=== PATIENT | male | born 1970 | race African-American/Black ===

== ENCOUNTER 2019-08-18 05:36 | Day surgery (SDC) | payer MEDICARE, MEDICAID ==
[~2019-08-18] VITALS: Ht 176.5 cm; Wt 102.1 kg
[~2019-08-18 05:36] MED LIST: ALBU8.5H INH; AMOX875T2 PO; GLIP5TAB8 PO; INCR1INH INH; MELATAB3 PO; METF10004 PO; NICO21DI37 TOP; RANI150T14 PO; SERT-138 PO; SIMV10TA2 PO; VITA1CAP25 PO; VITA500045 PO; [UNRECOGNIZED DRUG - OTHER] MT
[2019-08-18] MEDS ORDERED: LR 1,000 ML IV ONE (06:00)
[2019-08-18] MEDS ORDERED: fentaNYL 100 MCG/2 ML INJECTION (J3010) As Ordered ONE ×2 (07:08→07:47)
[2019-08-18] MEDS ORDERED: MIDAZOLAM INJ 2 MG/2 ML VIAL (J2250) As Ordered ONE (07:08)
[2019-08-18] MEDS ORDERED: dexameTHASONE 4 MG/ML 1ML VIAL (J1100) As Ordered ONE (07:10)
[2019-08-18] MEDS ORDERED: LIDOCAINE 2% INJ 100 MG/5 ML SDV (FOR ANES.) As Ordered ONE (07:10)
[2019-08-18] MEDS ORDERED: PROPOFOL 200 MG/20 ML VIAL As Ordered ONE (07:10)
[2019-08-18] MEDS ORDERED: ROCURONIUM BROMIDE 50 MG/5 ML VIAL As Ordered ONE (07:10)
[2019-08-18] MEDS ORDERED: ONDANSETRON 4MG/2ML VIAL (J2405) As Ordered ONE (07:10)
[2019-08-18] MEDS ORDERED: LIDOCAINE 1% SDV INJ 30 ML VIAL As Ordered ONE (07:12)
[2019-08-18] MEDS ORDERED: LIDOCAINE VISCOUS 2% SOLN 15ML UDC As Ordered ONE (07:12)
[2019-08-18] MEDS ORDERED: CETACAINE SPRAY 5GM As Ordered ONE (07:12)
[2019-08-18] MEDS ORDERED: THROMBIN SOLN 5,000 UNITS VIAL As Ordered ONE (07:12)
[2019-08-18] MEDS ORDERED: EPINEPHrine 1MG/10ML SYRINGE 1.5IN As Ordered ONE (07:19)
[2019-08-18] MEDS ORDERED: SUGAMMADEX SODIUM 500 MG/5 ML VIAL (BRIDION) As Ordered ONE (07:56)
[2019-08-18] MEDS ORDERED: ESMOLOL INJ 100MG/10ML VIAL As Ordered ONE (07:58)
[2019-08-18] MEDS ORDERED: ONDANSETRON 4MG/2ML VIAL (J2405) IV PRN (08:45)
[2019-08-18] MEDS ORDERED: PERCOCET 5MG/325MG TAB PO PRN (08:45)
[2019-08-18] MEDS ORDERED: MORPHINE 10 MG/ML 1ML VIAL (J2270) IV PRN (08:45)
[2019-08-18] MEDS ORDERED: fentaNYL 100 MCG/2 ML INJECTION (J3010) IV PRN (08:45)
[2019-08-18] MEDS ORDERED: LR 1,000 ML IV SCH (08:45)
--- NOTE | 2019-08-18 08:53 | ROOR ---
Patient Name: Tomer Suresh Procedure Date: 08/18/2019 7:17 AM Date of : 1970 Admit Type: Outpatient Age: 48 Room: Main OR Note Status: Finalized Attending MD: Isamar Shaw MD Procedure: Bronchoscopy Indications: Right lower lobe mass, Hemoptysis with abnormal CXR, Mediastinal adenopathy, Paratracheal adenopathy Providers: Isamar Shaw MD (Doctor) Referring MD: 1. No Referring Physician 1. No Referring Physician, Admin. (Referring MD) Requesting Physician: Medicines: General Anesthesia, Cetacaine topical Complications: No immediate complications. Estimated blood loss: Minimal Procedure: Pre-Anesthesia Assessment: - Prior to the procedure, a History and Physical was performed, and patient medications and allergies were reviewed. The patient's tolerance of previous anesthesia was also reviewed. The risks and benefits of the procedure and the sedation options and risks were discussed with the patient. All questions were answered, and informed consent was obtained. Prior Anticoagulants: The patient has taken no previous anticoagulant or antiplatelet agents. ASA Grade Assessment: II - A patient with mild systemic disease. After reviewing the risks and benefits, the patient was deemed in satisfactory condition to undergo the procedure. The Bronchoscope was introduced through the mouth, via the endotracheal tube (the patient was intubated for the procedure) and advanced to the tracheobronchial tree of both lungs. The procedure was accomplished without difficulty. The patient tolerated the procedure well. Findings: Respiratory tract: The trachea is of normal caliber. The dilip is sharp. The entire tracheobronchial tree was examined to at least the first subsegmental level. Bronchial mucosa and anatomy are normal in the left brochial tree with no endobronchial lesions and scant thick mucoid secretions. Right Lung Abnormalities: The right upper lobe bronchial mucosa appeared edematous but no endobronchial lesion seen. In the right lower lobe, the superior segmental bronchus was visualized and patent. The devision to the right lower lobe basalar segments oriface showed narrowing from areas of friable and nodular mucosa. Brushings were obtained in the right lower lobe with a cytology brush and sent for routine cytology. Endobronchial biopsies were performed in the right lower lobe mucosal abnormality using forceps and sent for histopathology examination. BAL was performed in the right lower lobe of the lung and sent for cell count, bacterial culture, and fungal & AFB analysis and cytology. The return was blood-tinged. An endobronchial ultrasound endoscope was utilized in order to assist with fine needle aspiration in the subcarinal area and in the left hilum. Transbronchial needle aspiration of a lymph nodes was performed in the subcarinal area and in the left hilum using an Olympus EBUS-TBNA 21 gauge needle and sent for routine cytology. The procedure was guided by ultrasound. Transbronchial needle aspiration technique was selected because the sampling site was not visible endoscopically. Impression: - Right lower lobe mass - Hemoptysis with abnormal CXR - Mediastinal adenopathy - Paratracheal adenopathy - Friable mucosa was found in the right lower lobe. - Nodular mucosa was visualized in the right lower lobe. - Brushings were obtained. - An endobronchial biopsy was performed. - Bronchoalveolar lavage was performed. - Endobronchial ultrasound was performed. - A transbronchial needle aspiration was performed. Recommendation: - Follow up with bronchoscopist as previously scheduled. Attending Participation: I personally performed the entire procedure. Isamar Shaw MD 08/18/2019 8:53:17 AM Number of Addenda: 0 Note Initiated On: 08/18/2019 7:17 AM
--- NOTE | 2019-08-18 09:00 | REP ---
Single view chest: 08/18/2019. Indication: Status post bronchoscopy. Comparison: None. Findings: There is no pneumothorax. There is mild blunting of the right costophrenic angle with minimal flow is suspected. The cardiac silhouette is normal in size. The mediastinum is prominent. Mildly prominent pulmonary vasculature and interstitial markings are present. Please correlate clinically for early CHF. Impression: No pneumothorax. Electronically Signed by Ajit Miller DO 08/18/2019 08:51 A
[2019-08-18 09:05] VITALS: BP 117/59
[2019-08-18 11:40] LABS: APPEARANCE CLOTTED (CLEAR); COLOR RED (COLORLESS); SOURCE RIGHT LOWER LOBE
== END 2019-08-18 09:47 | disposition home or self-care (01) ==
LOC: M SDC 05:36
PROVIDERS: ATTEND Internal Medicine Pulmonary Disease
DX: C34.31 Malignant neoplasm of lower lobe, right bronchus or lung (principal); C77.1 Secondary and unspecified malignant neoplasm of intrathoracic lymph nodes; E11.9 Type 2 diabetes mellitus without complications; E78.49 Other hyperlipidemia; F32.9 Major depressive disorder, single episode, unspecified; F17.218 Nicotine dependence, cigarettes, with other nicotine-induced disorders; K21.9 Gastro-esophageal reflux disease without esophagitis; Z79.84 Long term (current) use of oral hypoglycemic drugs; Z79.899 Other long term (current) drug therapy; G47.30 Sleep apnea, unspecified; Z79.51 Long term (current) use of inhaled steroids
CPT/HCPCS: 31623; 31624; 31625; 31629; 31652; 71045; 87070; 87102; 87116; 87205; 87206; 88104; 88108; 88173; 88305; 88313; 88341; 88342; 89051; J1100; J2250; J2405; J3010

== ENCOUNTER → 2019-09-08 | Outpatient (CLI) | payer MEDICARE, MEDICAID ==
[~2019-09-08] MED LIST changes: +ONDA8TAB7 PO; +PROC10TA4 PO; -SIMV10TA2 PO; +SIMV10TA21 PO
--- NOTE | 2019-09-08 19:44 | REP ---
PET/CT: History: Staging, lung carcinoma right lower lobe. 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 Comparisons: Comparison chest x-ray August 18, 2019. TECHNIQUE: 61 minutes following the intravenous injection of a 8.82 mCi dose of F-18 FDG, three-dimensional PET scintigraphy is acquired from the skull base to the proximal thighs. Triplanar noncontrast CT scanning is acquired through the same anatomic range for attenuation correction, and image registration with scan parameters optimized to minimize radiation exposure to the patient. PET scintigraphy and CT datasets were fused and displayed on a workstation with multiplanar and projection display capability. PET/CT Findings: The known large right lower lobe hilar and infrahilar mass is quite hypermetabolic. Maximum standard uptake value 16.13 to 17.64. Hypermetabolic bulky subcarinal lymphadenopathy is seen with maximum standard uptake value 18.31. Precarinal mediastinal hypermetabolic uptake is seen as well, maximum standard uptake value 15.50. Hypermetabolic uptake extends superiorly in the right paratracheal mediastinum. The low density left thyroid cyst or nodule shows no abnormal hypermetabolic uptake. Head and neck soft tissues show no abnormal teddy uptake. There is a mildly hypermetabolic normal-sized para esophageal lymph node just lateral to the distal esophagus anterior to the descending aorta. Maximum standard uptake value here is 5.42. There is also an abnormal celiac axis lymph node in the upper central abdomen with a maximum standard uptake value 7.22. No abnormal hypermetabolic uptake is seen within the liver. No other abnormal uptake is seen in the abdomen or pelvis. Impression: The bulky right lower lobe, right hilar, subcarinal and mediastinal mass is hypermetabolic. There is postobstructive change in the right lower lobe lung parenchyma. There is evidence of metastatic hypermetabolic uptake in a celiac axis lymph node and probably, in a distal para-esophageal lymph node. No other abnormal abdominal or pelvic hypermetabolic uptake is seen. Electronically Signed by Fredrick Cosme MD 09/08/2019 07:53 P
== END ==
LOC: M PLARAD 13:23
PROVIDERS: ATTEND Internal Medicine Pulmonary Disease
DX: C34.31 Malignant neoplasm of lower lobe, right bronchus or lung (principal)
CPT/HCPCS: 78815; A9552

== ENCOUNTER → 2019-09-10 | Outpatient (CLI) | payer MEDICARE, MEDICAID ==
[~2019-09-10] MED LIST changes: -ONDA8TAB7 PO; -PROC10TA4 PO; +SIMV10TA2 PO; -SIMV10TA21 PO
--- NOTE | 2019-09-10 09:37 | PFTRPT ---
Height: 69.00 Inches Weight: 221.00 Lbs BSA: 2.16 Diagnosis: C34.31 DATE OF PROCEDURE: 09/10/2019 ORDERED BY: Dr. Shaw Spirometry: Pre and post bronchodilator study of excellent technical quality. Forced vital capacity is borderline. FEV1 is reduced and out of proportion. Obstructive index is, therefore, reduced as well. Flow Volume Loop: Expiratory limb of the flow volume loop does suggest some degree of flow rate limitation. No significant bronchodilator response identified. Lung Volumes: Residual volume does not suggest air trapping. Diffusing Capacity: Diffusing capacity is reduced but is appropriate for alveolar volume. Hemoglobin: Hemoglobin acceptable at 13.3. Airway Mechanics: Airway resistance and conductance are normal. IMPRESSION: Suggests some degree of restrictive ventilatory defect. Minimal obstruction cannot be ruled out. No bronchodilator response. Decrease in the absolute diffusing capacity. Please correlate clinically. MTDD
== END ==
LOC: M CARPUL 08:53
PROVIDERS: ATTEND Internal Medicine Pulmonary Disease
DX: C34.31 Malignant neoplasm of lower lobe, right bronchus or lung (principal)

== ENCOUNTER → 2019-09-25 | Outpatient (CLI) | payer MEDICARE, MEDICAID ==
[~2019-09-25] MED LIST changes: +LIDOCAINE 1% MDV 20ML VIAL As Ordered ONE; +MIDAZOLAM INJ 2 MG/2 ML VIAL (J2250) As Ordered ONE; +ONDA8TAB7 PO; +PROC10TA4 PO; +ceFAZolin 1GM INJ (J0690 PER 500MG) As Ordered ONE; +ceFAZolin SOD 2 GM in IV 1 EA IV ONE; +diphenhydrAMINE INJ 50MG/ML VIAL (J1200) As Ordered ONE; +fentaNYL 100 MCG/2 ML INJECTION (J3010) As Ordered ONE
--- NOTE | 2019-09-25 08:36 | IRHP ---
[facility] IR Pre-Procedure H & P General Date of Service: Sep 25, 2019 Procedure: Same Day Surgery Interval History and Physical I have seen the patient and reviewed last H & P performed within 30 days. There is no significant interval change. History of Present Illness Chief Complaint The patient is a 48-year-old male admitted with a reason for visit of Scc In [facility]. PRE-PROCEDURE DIAGNOSIS: SCC HEART: normal rate. LUNGS: normal breathing at rest. ASA Classification ASA Classification: II-Mild systemic disease Mallampati Score: I NPO: Yes Problems with prior sedation: No Obstructive Sleep Apnea: No Plan moderate sedation Allergies Coded Allergies: No Known Allergies (Unverified , 08/14/19) Home Medications Scheduled Cholecalciferol (Vitamin D3) (Vitamin D3), 50,000 UNIT PO QWEEK, (Reported) Glipizide (Glipizide), 5 MG PO DAILY, (Reported) Melatonin (Melatonin), 5 MG PO QHS, (Reported) Metformin HCl (Metformin HCl), 1,000 MG PO BID, (Reported) Nicotine Polacrilex (Nicotine Lozenge), 4 MG MT Q2HP, (Reported) Sertraline HCl (Sertraline HCl), 100 MG PO DAILY, (Reported) Simvastatin (Simvastatin), 10 MG PO DAILY, (Reported) Umeclidinium Volcano (Incruse Ellipta), 1 PUFF INH DAILY, (Reported) Scheduled PRN Albuterol Sulfate (Albuterol Sulfate Hfa), 2 PUFFS INH Q4-6HP PRN for SOB/WHEEZING, (Reported) VS, I&O, 24H, Fishbone Vital Signs/I&O Vital Signs Date Time Temp Pulse Resp B/P (MAP) Pulse Ox O2 Delivery O2 Flow Rate FiO2 09/25/19 07:39 97.6 105 16 98 Room Air RAKAN UGARTE MD Sep 25, 2019 08:36
--- NOTE | 2019-09-25 09:24 | POST-OPPD ---
Postoperative Procedure Note Date Of Procedure: Sep 25, 2019 Time Of Procedure: 09:22 PREOPERATIVE DIAGNOSIS: SCC POSTOPERATIVE DIAGNOSIS: same FINDINGS: patent right IJ PROCEDURE: right IJ port. ready to use SURGEON: nette ANESTHESIA: mod sed ESTIMATED BLOOD LOSS: < 5 ml COMPLICATIONS: none POSTOPERATIVE CONDITION: stable RAKAN UGARTE MD Sep 25, 2019 09:24
[2019-09-25 11:12] VITALS: BP 141/94
--- NOTE | 2019-09-25 14:24 | REP ---
IR Ultrasound and fluoroscopy-guided port placement. IR Ultrasound of the neck. IR Moderate sedation. Clinical information: Lung cancer. Physician: Dr. Millan. Procedure: The patient was advised of the benefits, risks, and alternatives of the procedure and informed consent was obtained. A time-out was performed with verification of the patient's name, MRN, site of procedure and type of procedure to be performed. The patient was positioned in the supine position on the angiographic table. The site was prepped and draped in the usual sterile fashion. Moderate sedation was performed by the physician including the presence of an independent trained observer who assisted and monitored the patient's level of consciousness and physiologic status. Following the administration of Fentanyl and Versed, the physician spent 45 minutes of continuous face to face time with the patient. Ultrasound of the neck reveals a patent and compressible right internal jugular vein. A supervisor felling bucking radiograph reveals increased markings in right lung and hilar fullness. . The neck and anterior chest wall were anesthetized with lidocaine. The right internal jugular vein was accessed using a microintroducer needle under ultrasound guidance, via a lateral approach. An 018 wire was advanced into the superior vena cava, the needle was removed and a microsheath was placed. An Amplatz wire was then passed into the inferior vena cava. An incision at the internal jugular vein access site and anterior chest wall were made using a scalpel. An incision was made at the anterior chest wall. A small pocket was created using a combination of blunt and sharp dissection. A tunneling device was then used to pass the catheter from the pocket to the neck puncture site. An 8-[place] [employer] smart power port was then positioned in the pocket. The catheter was then measured and cut. The introducer sheath was exchanged for a peel-away sheath. The catheter was passed through the peel-away sheath into the internal jugular vein and the peel-away sheath was removed. The port tip was positioned at the cavoatrial junction. The port was then accessed with a Fishman needle. The port flushes and aspirates well. The puncture site in the neck was closed. The chest wall incision was then closed with 2-0 Vicryl and 4-0 Monocryl. Glue and Steri-Strips were applied. A sterile dressing was then applied. The patient tolerated the procedure well and was returned to the PRU in stable condition. Estimated blood loss: <5 ml. Complications: None. Conclusion: 1. Successful placement of an 8-[place] [employer] power port via the right internal jugular vein. The port is ready for immediate use. 2. Patient to follow up in IR clinic in 2 weeks. Thank you for this referral. Electronically Signed by Jessica Millan MD 09/25/2019 02:24 P
== END ==
LOC: M IRPRO 07:25
PROVIDERS: ATTEND Internal Medicine Medical Oncology
DX: C34.31 Malignant neoplasm of lower lobe, right bronchus or lung (principal); Z79.899 Other long term (current) drug therapy

== ENCOUNTER → 2019-10-13 | Outpatient (POV) | payer MEDICARE, MEDICAID ==
[~2019-10-13] VITALS: Ht 175.3 cm; Wt 100.0 kg
[~2019-10-13] MED LIST changes: -LIDOCAINE 1% MDV 20ML VIAL As Ordered ONE; -MIDAZOLAM INJ 2 MG/2 ML VIAL (J2250) As Ordered ONE; -SIMV10TA2 PO; +SIMV10TA21 PO; -ceFAZolin 1GM INJ (J0690 PER 500MG) As Ordered ONE; -ceFAZolin SOD 2 GM in IV 1 EA IV ONE; -diphenhydrAMINE INJ 50MG/ML VIAL (J1200) As Ordered ONE; -fentaNYL 100 MCG/2 ML INJECTION (J3010) As Ordered ONE
[2019-10-13 10:55] VITALS: BP 142/92
--- NOTE | 2019-10-14 08:55 | IRPN ---
[facility] IR Progress Note IR Progress Note DATE: Oct 13, 2019 FOLLOW-UP: Status post port placement. Port being used without any difficulty. No fevers or chills. ON EXAMINATION: Patient in better spirits. Port site looks good, no redness, tenderness, fluctuance or discharge. IMPRESSION: Doing well status post port placement. No further follow-up scheduled unless initiated by patient or infusion. Thank you for this referral Allergies Coded Allergies: No Known Allergies (Unverified , 08/14/19) VS,Fishbone, I+O VS, Fishbone, I+O Vital Signs Date Time Temp Pulse Resp B/P (MAP) Pulse Ox O2 Delivery O2 Flow Rate FiO2 10/13/19 10:55 98.0 109 18 142/92 (109) 99 Room Air RAKAN UGARTE MD Oct 14, 2019 08:55
== END ==
LOC: M IRPOV 10:40
PROVIDERS: ATTEND Radiology Diagnostic Radiology
DX: Z45.2 Encounter for adjustment and management of vascular access device (principal)

== ENCOUNTER → 2019-12-15 | Outpatient (CLI) | payer MEDICARE, MEDICAID ==
[~2019-12-15] MED LIST changes: +CBD OIL; +ENDO5TAB PO; +GASTROGRAFIN SOLUTION 30ML (Q9963) As Ordered ONE; +ISOVUE-370 76% 100ML VIAL (Q9967) As Ordered ONE; +ONDA8TAB10 PO; -ONDA8TAB7 PO
--- NOTE | 2019-12-15 15:21 | REP ---
Clinical: Lung cancer. Technique: Add axial contrast enhanced images from the thoracic inlet to the upper abdomen with coronal and sagittal re-formations. Correlation: PET-CT dated 09/08/2019. Findings: Current examination demonstrates moderate residual mediastinal and hilar (right greater than left) conglomerate adenopathy and ill-defined small areas of linear/nodular density extending from the right hilum to the right lower lobe along with minimal right lower lobe scarring. While no CT is available for direct comparison, the findings are considerably improved as compared to recent PET CT dated 09/08/2019. No new lesion is appreciated. No effusion. No pneumothorax. Further evaluation of the mediastinum demonstrates normal thoracic aorta, pulmonary vasculature and heart/pericardium. No pericardial effusion. [id number] identified with tip in the SVC. Surrounding musculoskeletal structures are intact without focal abnormality. Limited upper abdomen demonstrates normal bilateral adrenal glands. Impression: Findings suggest considerable improvement when compared to PET CT. No new acute process identified. Electronically Signed by Marlon Eastman MD 12/15/2019 03:12 P
--- NOTE | 2019-12-15 15:28 | REP ---
Clinical: Lung cancer. Technique: Axial contrast enhanced images from the lung bases to the pubic symphysis with coronal and sagittal re-formations using oral (per protocol) and 100 ml Isovue 370 intravenous contrast material. Comparison: None. Findings: Hepatic steatosis suggested without focal hepatic lesion. Spleen, pancreas, gallbladder, bilateral adrenal glands and kidneys are normal. A single 13 mm lymph node is identified at the celiac axis. The enteric system is without obstruction or acute inflammatory process. Small hiatal hernia identified at the gastroesophageal junction. Normal terminal ileum and appendix identified in the right lower quadrant. Few scattered sigmoid diverticula noted without acute diverticulitis. Pelvis demonstrates collapsed normal bladder and age appropriate prostate/seminal vesicles. Small fluid collection suggested in the left inguinal canal. No ascites. No free air. No adenopathy. No obvious mass lesion. Abdominal aorta and vasculature normal. Musculoskeletal structures demonstrate age-related changes without focal abnormality. Impression: 1. Hepatic steatosis. No focal hepatic lesion identified. 2. Single prominent lymph node at the celiac access measures 13 mm and is otherwise nonspecific. 3. No further evidence for malignancy or metastatic disease. 4. No ascites, or focal inflammatory stranding. 5. Few scattered sigmoid diverticula. 6. Small hiatal hernia. Electronically Signed by Marlon Eastman MD 12/15/2019 03:19 P
== END ==
LOC: M RAD 12:59
PROVIDERS: ATTEND Internal Medicine Medical Oncology
DX: C34.90 Malignant neoplasm of unspecified part of unspecified bronchus or lung (principal)
CPT/HCPCS: 71260; 74177; Q9963; Q9967

== ENCOUNTER → 2020-03-22 | Outpatient (CLI) | payer MEDICARE, MEDICAID ==
[~2020-03-22] MED LIST changes: +ENOX150I3 SC; +GABA-1171 PO; -GASTROGRAFIN SOLUTION 30ML (Q9963) As Ordered ONE; -ISOVUE-370 76% 100ML VIAL (Q9967) As Ordered ONE
--- NOTE | 2020-03-22 15:53 | REP ---
RIGHT UPPER EXTREMITY DUPLEX DOPPLER VENOUS ULTRASOUND: Real-time ultrasound evaluation and duplex Doppler interrogation of right upper extremity deep vein system is performed. There is nonocclusive thrombus in the right jugular vein. No thrombus is seen in the right subclavian, axillary or basilic veins. There is also no thrombus in the basilic or cephalic veins. There is loss of phasicity and respiratory augmentation suggesting possible thrombus or compression of the superior vena cava. Recommend further evaluation with CT chest with IV contrast. Electronically Signed by Nasir Villalobos MD 03/22/2020 04:57 P
== END ==
LOC: M RAD 14:33
PROVIDERS: ATTEND Internal Medicine Medical Oncology
DX: C34.91 Malignant neoplasm of unspecified part of right bronchus or lung (principal); I82.C11 Acute embolism and thrombosis of right internal jugular vein

== ENCOUNTER → 2020-03-29 | Outpatient (CLI) | payer MEDICARE, MEDICAID ==
--- NOTE | 2020-03-30 00:58 | REP ---
PET/CT: HISTORY: Restaging lung carcinoma right lower lobe. Squamous cell carcinoma. Chemo immunotherapy. COMPARISON: Comparison PET/CT study 09/08/2019 showed bulky right lower lobe, right hilar, subcarinal, and mediastinal masses, which were hypermetabolic. Celiac axis teddy uptake was observed as well as a distal paraesophageal lymph node. TECHNIQUE: 45 minutes following the intravenous injection of a 7.8 mCi dose of F-18 FDG, three-dimensional PET scintigraphy is acquired from the skull base to the proximal thighs. Triplanar noncontrast CT scanning is acquired through the same anatomic range for attenuation correction, and image registration with scan parameters optimized to minimize radiation exposure to the patient. PET scintigraphy and CT datasets were fused and displayed on a workstation with multiplanar and projection display capability. PET/CT FINDINGS: There has been considerable improvement. However, markedly hypermetabolic uptake persists in a smaller mediastinal mass in the right pretracheal region. Maximum standard uptake value here is 36.54. Hypermetabolic teddy uptake is seen in the precarinal region with maximum standard uptake value 18.99 and in the right hilus, 8.35 and 11.09. There is hypermetabolic uptake persisting in a parenchymal nodule in the right lower lobe just above the posterior aspect of the right diaphragm. Maximum standard uptake value here is 10.44. This has decreased dramatically in size. The previously noted paraesophageal teddy focus and the previously noted celiac axis lymph node focus are no longer hypermetabolic or visible. No abnormal hypermetabolic uptake is seen in the abdomen and pelvis. IMPRESSION: Findings consistent with partial response. Improvement noted, but markedly hypermetabolic activity persists in remaining mediastinal, right hilar, and right lower lobe parenchymal disease. Electronically Signed by Fredrick Cosme MD 03/30/2020 08:20 A
== END ==
LOC: M PLARAD 10:49
PROVIDERS: ATTEND Internal Medicine Hematology
DX: C34.31 Malignant neoplasm of lower lobe, right bronchus or lung (principal)
CPT/HCPCS: 78815; A9552

== ENCOUNTER → 2020-04-06 | Outpatient (CLI) | payer MEDICARE, MEDICAID ==
[~2020-04-06] MED LIST changes: +COLA1TAB PO; +MIRA3350 PO; +MORP15TA2 PO; +MS C30TA6 PO; +OXYC1TAB23 PO; +PROHANCE 279.3MG/ML 15ML VIAL As Ordered ONE; +PROHANCE 279.3MG/ML 5ML VIAL As Ordered ONE
--- NOTE | 2020-04-06 10:36 | REPVR ---
PROCEDURE INFORMATION: Exam: MR Thoracic Spine Without and With Contrast Exam date and time: 04/06/2020 9:56 AM Age: 49 years old Clinical indication: Condition or disease; Other: Lung CA; Additional info: Nsclc, new spine pain, arm pain TECHNIQUE: Imaging protocol: Multiplanar magnetic resonance images of the thoracic spine without and with intravenous contrast. Contrast material: PROHANCE; Contrast volume: 20 ml; Contrast route: IV; COMPARISON: No relevant prior studies available. FINDINGS: Vertebrae: Unremarkable. Spinal cord: Normal signal. No cord compression. Lungs: There is a large right mediastinal and hilar mass. Soft tissues: Unremarkable. IMPRESSION: There is a large right mediastinal and hilar mass. Please refer to recent PET-CT scan report for additional details. Otherwise, unremarkable MRI of the thoracic spine. Electronically signed by: Justus Nickerson On 04/06/2020 10:36:34 AM
== END ==
LOC: M RAD 08:06
PROVIDERS: ATTEND Internal Medicine Medical Oncology
DX: C34.91 Malignant neoplasm of unspecified part of right bronchus or lung (principal); M54.9 Dorsalgia, unspecified; M79.603 Pain in arm, unspecified
CPT/HCPCS: 72157; A9576

== ENCOUNTER → 2020-04-07 | Outpatient (CLI) | payer MEDICARE, MEDICAID ==
[~2020-04-07] MED LIST changes: -PROHANCE 279.3MG/ML 15ML VIAL As Ordered ONE; -PROHANCE 279.3MG/ML 5ML VIAL As Ordered ONE
--- NOTE | 2020-04-10 16:55 | MEDONCTEEN ---
Date/Time of Encounter Date of Encounter: Apr 10, 2020 Time of Encounter: 17:00 Telephone Encounter Telephone call Severe cancer pain ongoing Patient has not had relief of pain to date as is ready to "give up" Pain under right collarbone-pain constant, sharp pain currently a 10+ Some brief relieve with percocet saw XRT oncology 04/07. Plan on radiation painful area Also had reaction to lovenox injection for treatment of subclavian DVT PLAN: Patient has significant cancer related pain Needs additional medication for relief Continue gabapentin Msir 15mg Q3 hrs PRN MS04 30mg BID Colase with senna BID Miralax QD MER CIFUENTES MD Apr 10, 2020 16:55
--- NOTE | 2020-04-11 12:41 | RADONC ---
RADIATION ONCOLOGY CONSULTATION NOTE DATE: 04/07/2020 CHART #: [id number] DIAGNOSIS: Right lower lobe poorly differentiated squamous cell carcinoma. STAGE: IV A, T2b, N2, M1b, grade 3. ECOG PERFORMANCE STATUS: 1. CONSULTATION NOTE: Mr. 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 HISTORY OF PRESENT ILLNESS: The patient was in his usual state of health and had a 54 pack-year smoking history until August 2019 when he began developing some hemoptysis. He also had a cough which was progressive over the summer 2018. He subsequently had increasing disability with walking and shortness of breath as well as a 20 pound weight loss. On 08/06/2019, a CT scan of the chest was done at [facility] and a large right lung mass extending into the mediastinum above and below the dilip with engulfment of the main stem bronchus and postobstructive consolidation of the right lower lobe was found. Pulmonary function tests were done and an FEV1 of 2.2 or 87% of predicted was found. The diffusion capacity was 65% of predicted. The patient was seen by Dr. Duong who thought he was not a surgical candidate. He was thought at that time to have at least stage III A disease. A PET scan was done however on 09/08/2019 and showed bulky hypermetabolic subcarinal, precarinal and right lower lobe infrahilar adenopathy as well as paraesophageal lymphadenopathy. There was celiac node involvement with an SUV value of 7.22, highly suspicious for metastatic disease. A biopsy was undertaken on 08/18/2019 of the right lower lobe and this revealed a poorly differentiated squamous cell carcinoma. The patient was seen by his medical oncologist, Dr. Kristel Campos, and initiated systemic therapy. He has been treated with carboplatin, paclitaxel and pembrolizumab. More recently, the patient began developing some pain in the upper chest anteriorly. A PET CT scan was done on 03/29/2020 which showed marked hypermetabolic uptake persisting in the right anterior mediastinum and right hilar region as well as the right lower lobe. I have reviewed that mass and it appears to be extending to the anterior chest wall region. This is exactly where the patient is claiming pain. He is now presenting for consideration of palliative radiation therapy to that area. PAST MEDICAL HISTORY: The patient's past medical history is positive for diabetes, GERD, glaucoma and hyperlipidemia. ALLERGIES: The patient has NO KNOWN DRUG ALLERGIES. SOCIAL HISTORY: The patient has a 54 pack-year smoking history. He reports that he does not abuse alcohol. FAMILY HISTORY: The patient's family history is positive for a mother with uterine cancer. He has a father with pancreatic cancer. No other family history of malignancy is known. REVIEW OF SYSTEMS: The patient's review of systems is positive for his right upper chest wall discomfort. He also has some anorexia and anxiety. He reports that he has poor dentition and needs to have teeth pulled. His review of systems is otherwise noncontributory. He denies nausea, vomiting, fevers, chills, night sweats, diplopia, headaches, chest pain, shortness of breath, urinary or bowel difficulties, or neurological problems. PHYSICAL EXAMINATION: Physical examination was largely deferred at this point except for the basics. HEENT: Exam is normocephalic, atraumatic. Extraocular movements are intact. There is no palpable lymphadenopathy in cervical, supraclavicular, infraclavicular or axillary regions. There is tenderness present when placing pressure over the right clavicular - upper chest area. There is no other tenderness to pressure or percussion of the bony skeleton. ASSESSMENT: I believe the patient is a candidate for external beam radiation therapy and I have so informed him. I have discussed with the patient in detail the potential benefits as well as possible acute and chronic sequelae of external beam radiation therapy. We have discussed logistics of treatment planning, simulation and subsequent fractionated daily radiation treatments. I am scheduling the patient for the next available simulation slot and radiation treatments will begin subsequently. Thank you for allowing us to participate in the care of this very pleasant gentleman. If I could be of any further assistance or provide you with any information, please feel free to contact me at anytime. As always warm regards. cc: CHEMO Maxwell MD Robert Johnson, MD Vivian Keenan, MD
== END ==
LOC: M ONCR 10:08
PROVIDERS: ATTEND Radiology Radiation Oncology
DX: C34.31 Malignant neoplasm of lower lobe, right bronchus or lung (principal)

== ENCOUNTER → 2020-05-03 | Outpatient (RCR) | payer MEDICARE, MEDICAID ==
--- NOTE | 2020-04-19 12:52 | RADONC ---
RADIATION ONCOLOGY SIMULATION NOTE DATE: 04/13/2020 CHART NUMBER: [id number] SIMULATION NOTE: Mr. Suresh was taken to the CT scan for CT simulation of his lung field. CT was accomplished without difficulty or discomfort. Radiation treatment planning is underway and radiation treatments will begin subsequently. An immobilization device was created and will be used throughout the course of treatment. It was created without difficulty or discomfort. I was physically present throughout the course of CT simulation.
--- NOTE | 2020-04-27 14:19 | RADONC ---
RADIATION ONCOLOGY DATE OF SERVICE: 04/25/2020 CHART #: [id number] Mr. Suresh is a 49-year-old gentleman who carries the diagnosis of poorly differentiated squamous cell carcinoma of the right lung Stage IV A. He is on palliative radiation therapy. So far, he has received a dose of 1200 cGy in 4 treatments to the right lung There is marked skin erythema of the treated area on the right chest and neck. He complains of sore throat. Mouth wash is prescribed. He has no other complaints. Weight has been stable. Otherwise, he tolerates treatment well and treatment will continue as planned. MTDD
[~2020-05-03] MED LIST changes: +ELIQ5TAB PO; +MAGICMW SSP
--- NOTE | 2020-05-05 09:01 | RADONC ---
RADIATION ONCOLOGY DATE OF SERVICE: 05/02/2020 CHART #: [id number] Mr. Suresh is a 49-year-old gentleman who carries a diagnosis of poorly differentiated squamous cell carcinoma of the right lung Stage IV. He is getting palliative radiation therapy to the right shoulder area. So far, he has received a dose of 2700 cGy in 9 fractions. SYSTEMIC REVIEW: He is in good general condition. He has no pain. No pain medication in the right shoulder. He denies shortness of breath, coughing, headache. No sore throat. PHYSICAL EXAMINATION: There are no noticeable skin changes in the right shoulder area. Treatment will be completed tomorrow. MTDD
== END ==
LOC: M ONCR 04-13 14:02
PROVIDERS: ATTEND Radiology Radiation Oncology
DX: C34.31 Malignant neoplasm of lower lobe, right bronchus or lung (principal)

== ENCOUNTER → 2020-06-08 | Outpatient (CLI) | payer MEDICARE, MEDICAID ==
[~2020-06-08] MED LIST changes: +DEXA4TA PO
== END ==
LOC: M ONCR 09:17
PROVIDERS: ATTEND General Practice
DX: C34.31 Malignant neoplasm of lower lobe, right bronchus or lung (principal)

== ENCOUNTER → 2020-07-06 | Outpatient (CLI) | payer MEDICARE, MEDICAID ==
[~2020-07-06] MED LIST changes: +ISOVUE-370 76% 100ML VIAL As Ordered ONE
--- NOTE | 2020-08-02 11:53 | REP ---
CONTRAST ENHANCED CHEST CT CLINICAL: Follow-up lung cancer. TECHNIQUE: Axial contrast enhanced images from the thoracic inlet to the upper abdomen with coronal and sagittal reformations using 75 mL Isovue-370 intravenous contrast material. COMPARISON: 12/15/2019. FINDINGS: Current examination now demonstrates a 4.5 cm centrally necrotic malignant mass in the infrahilar right lower lobe with adjacent postobstructive atelectasis. There is evidence for moderate mediastinal and right hilar adenopathy, which appears slightly increased from prior examination. The current examination also now demonstrates areas of ground-glass opacity involving the right upper lobe, which represents new findings as well. The left hemithorax is essentially clear. There is no effusion or pneumothorax. Further evaluation of the mediastinum demonstrates a normal thoracic aorta and pulmonary vasculature. The heart and pericardium are grossly unremarkable. Musculoskeletal structures are intact. The bilateral adrenal glands appear normal. Diffuse fatty infiltration to the liver is suggested. IMPRESSION: Current examination now demonstrates a necrotic 4.5 cm mass in the infrahilar right lower lobe with postobstructive atelectasis, as well as new moderate areas of ground-glass opacities in the right upper lobe and slightly increased mediastinal/hilar adenopathy. Findings are consistent with active progressive malignancy. MTDD
== END ==
LOC: M RAD 13:56
PROVIDERS: ATTEND Specialist
DX: C34.90 Malignant neoplasm of unspecified part of unspecified bronchus or lung (principal); J98.11 Atelectasis
CPT/HCPCS: 71260; Q9967

== ENCOUNTER → 2020-10-17 | Outpatient (CLI) | payer MEDICARE, MEDICAID ==
[~2020-10-17] MED LIST changes: +AMOXTAB PO; +GLIP5TAB20 PO; +MELA5CAP2 PO; +METF-877 PO; +MUCI600T31 PO; +PROAAER10 INH; +ZOLO100T PO
--- NOTE | 2020-10-17 16:54 | REP ---
INDICATION: SM CELL LUNG CANCER. Status post radiation therapy and chemotherapy. COMPARISON: Comparison chest CT study July 06, 2020. Comparison PET-CT study March 29, 2020. Chest CT study from December 15, 2019 is also reviewed.. TECHNIQUE: 75 mL of intravenous Isovue 370 is administered and helical scanning is acquired. 3 mm axial images re-formatted. Coronal and sagittal MPR and coronal MIP images are provided. 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 On axial CT images, today's study demonstrates an air-fluid level in the previously noted necrotic cavitary lesion in the right lower lobe. This is a little larger in overall size, 5.0 by 3.6 cm today, previously 4.0 by 3.7 cm by my measurement. There is a small right pleural effusion which is a new finding. There is extensive atelectasis and consolidation in the right lower lobe associated with the cavitary lesion. There is also an area of volume loss with air bronchograms and fibrotic appearance in the right upper lobe suggestive of post radiation change. There are some peripheral irregular airspace nodules in the periphery of the right upper lobe as well. The air bronchograms and the fibrosis and volume loss in the right upper lobe is new from July 06, 2020. The small irregular nodules are of uncertain significance but appear to be limited to the right upper lobe distribution. The left lung remains clear. There is right subcarinal adenopathy extending along the right lateral margin of the esophagus which has progressed since the prior study. This area measures 2.5 cm anterior to posterior by approximately 2.7 cm right to left. There is soft tissue density in the precarinal and right paratracheal region which also appears slightly more prominent than on the July 06, 2020 study. there appear to be 2 or 3 adjacent cysts in the thyroid gland to the left of midline. No supraclavicular adenopathy is appreciated Normal adrenal glands are seen. Visualized upper abdominal structures are otherwise unremarkable. IMPRESSION: New finding of small right pleural effusion. Increase in the size of the cavitary lesion in the right lower lobe and in right subcarinal lymphadenopathy suggest progression. Post radiation changes suspected in the right upper lobe. <Electronically signed by Herbie Cosme > 10/17/20 [id number]
== END ==
LOC: M RAD 12:58
PROVIDERS: ATTEND Specialist
DX: C34.91 Malignant neoplasm of unspecified part of right bronchus or lung (principal); J91.8 Pleural effusion in other conditions classified elsewhere
CPT/HCPCS: 71260; Q9967

== ENCOUNTER 2020-10-31 11:53 | Emergency (ER) | payer MEDICARE, MEDICAID ==
[~2020-10-31] VITALS: Ht 172.7 cm; Wt 107.7 kg
[~2020-10-31 11:53] MED LIST changes: -ISOVUE-370 76% 100ML VIAL As Ordered ONE
[2020-10-31 13:47] LABS: BASO # 0.1 10^3/uL (0.0-0.2); BASO % 0.4 % (0.0-1.0); EOS # 1.8 10^3/uL (0.0-0.5); EOS % 8.2 % (0.0-3.0); HEMATOCRIT 36.7 % (42.0-52.0); HEMOGLOBIN 11.6 g/dl (13.5-17.5); LYMPH # 2.4 10^3/uL (1.5-5.0); LYMPH % 10.8 % (24.0-44.0); MEAN CORPUSCULAR HEMOGLOBIN 29.6 pg (27.0-33.0); MEAN CORPUSCULAR HGB CONC 31.6 g/dl (32.0-36.5); MEAN CORPUSCULAR VOLUME 93.6 fl (80.0-96.0); MONO # 2.5 10^3/uL (0.0-0.8); MONO % 11.2 % (0.0-5.0); NEUTROPHILS # 15.2 10^3/uL (1.5-8.5); NEUTROPHILS % 68.8 % (36.0-66.0); PLATELET COUNT, AUTOMATED 334 10^3/uL (150-450); RED BLOOD COUNT 3.92 10^6/uL (4.30-6.10); WHITE BLOOD COUNT 22.1 10^3/uL (4.0-10.0)
[2020-10-31 14:16] LABS: ERYTHROCYTE SEDIMENTATION RATE 73 mm/hr (0-15)
[2020-10-31] MEDS ORDERED: CIPR-249 PO (15:34)
[2020-10-31] MEDS ORDERED: SODIUM CHLORIDE 0.9% INJ 10 ML SYR IV ONE (16:30)
[2020-10-31 16:41] VITALS: BP 121/80
[2020-11-01] MEDS ORDERED: SODIUM CHLORIDE 0.9% INJ 10 ML SYR IV SCH (09:00)
== END 2020-10-31 16:45 | disposition home or self-care (01) ==
LOC: M ED 11:53
DX: T80.212A Local infection due to central venous catheter, initial encounter (principal); Y82.8 Other medical devices associated with adverse incidents; R00.0 Tachycardia, unspecified; C34.90 Malignant neoplasm of unspecified part of unspecified bronchus or lung; Z79.899 Other long term (current) drug therapy; Z79.01 Long term (current) use of anticoagulants; Z79.51 Long term (current) use of inhaled steroids; Z79.84 Long term (current) use of oral hypoglycemic drugs
CPT/HCPCS: 83605; 85025; 85652; 86140; 87040; 99283; J1642

== ENCOUNTER 2020-11-21 14:05 | Inpatient (IN) | payer MEDICARE, MEDICAID ==
[~2020-11-21] VITALS: Ht 175.3 cm; Wt 107.0 kg
[~2020-11-21 14:05] MED LIST changes: -CBD OIL; +CBD OIL PO; +CIPR-249 PO
--- OUTSIDE RECORDS SUMMARY | 2020-11-21 14:13 | CCD ---
Author Author [facility] Organization [facility] Address Unknown Phone Unavailable Care Team Providers Care Twx Operator Name Role Phone Cougler, S Kole COUNTER SUPERVISOR Unavailable Unavailable Cougler, S Kole COUNTER SUPERVISOR Unavailable Unavailable Cougler, S Kole COUNTER SUPERVISOR Unavailable Unavailable Cougler, S Kole COUNTER SUPERVISOR Unavailable Unavailable Cougler, S Kole COUNTER SUPERVISOR Unavailable Unavailable Cougler, S Kole COUNTER SUPERVISOR Unavailable Unavailable Cougler, S Kole COUNTER SUPERVISOR Unavailable Unavailable Cougler, S Kole COUNTER SUPERVISOR Unavailable Unavailable Cougler, S Kole COUNTER SUPERVISOR Unavailable Unavailable Cougler, S Kole COUNTER SUPERVISOR Unavailable Unavailable Cougler, S Kole COUNTER SUPERVISOR Unavailable Unavailable Cougler, S Kole COUNTER SUPERVISOR Unavailable Unavailable Cougler, S Kole COUNTER SUPERVISOR Unavailable Unavailable Cougler, S Kole COUNTER SUPERVISOR Unavailable Unavailable Cougler, S Kole COUNTER SUPERVISOR Unavailable Unavailable Cougler, S Kole COUNTER SUPERVISOR Unavailable Unavailable Cougler, S Kole COUNTER SUPERVISOR Unavailable Unavailable Cougler, S Kole COUNTER SUPERVISOR Unavailable Unavailable Cougler, S Kole COUNTER SUPERVISOR Unavailable Unavailable Cougler, S Kole COUNTER SUPERVISOR Unavailable Unavailable Cougler, S Kole COUNTER SUPERVISOR Unavailable Unavailable Cougler, S Kole COUNTER SUPERVISOR Unavailable Unavailable Cougler, S Kole COUNTER SUPERVISOR Unavailable Unavailable Cougler, S Kole COUNTER SUPERVISOR Unavailable Unavailable Cougler, S Kole COUNTER SUPERVISOR Unavailable Unavailable Cougler, S Kole COUNTER SUPERVISOR Unavailable Unavailable Cougler, S Kole COUNTER SUPERVISOR Unavailable Unavailable Cougler, S Kole COUNTER SUPERVISOR Unavailable Unavailable Cougler, S Kole COUNTER SUPERVISOR Unavailable Unavailable Cougler, S Kole COUNTER SUPERVISOR Unavailable Unavailable Cougler, S Kole COUNTER SUPERVISOR Unavailable Unavailable Cougler, S Kole COUNTER SUPERVISOR Unavailable Unavailable Cougler, S Kole COUNTER SUPERVISOR Unavailable Unavailable Cougler, S Kole COUNTER SUPERVISOR Unavailable Unavailable Cougler, S Kole COUNTER SUPERVISOR Unavailable Unavailable Cougler, S Kole COUNTER SUPERVISOR Unavailable Unavailable Cougler, S Kole COUNTER SUPERVISOR Unavailable Unavailable Cougler, S Kole COUNTER SUPERVISOR Unavailable Unavailable Cougler, S Kole COUNTER SUPERVISOR Unavailable Unavailable MARAVEGIAS, N EFE RAGLAND Unavailable Unavailable MARAVEGIAS, Jordi ESCOBAR MD Unavailable Unavailable MARAVEGIAS, Jordi ESCOBAR MD Unavailable Unavailable MARAVEGIAS, N EFE RAGLAND Unavailable Unavailable MARAVEGIAS, Jordi ESCOBAR MD Unavailable Unavailable MARAVEGIAS, N EFE RAGLAND Unavailable Unavailable MARAVEGIAS, N EFE RAGLAND Unavailable Unavailable MARAVEGIAS, N EFE RAGLAND Unavailable Unavailable MARAVEGIAS, Jordi ESCOBAR MD Unavailable Unavailable MARAVEGIAS, Jordi ESCOBAR MD Unavailable Unavailable MARAVEGIAS, Jordi ESCOBAR MD Unavailable Unavailable MARAVEGIAS, Jordi ESCOBAR MD Unavailable Unavailable MARAVEGIAS, Jordi ESCOBAR MD Unavailable Unavailable MARAVEGIAS, Jordi ESCOBAR MD Unavailable Unavailable Florissant, F. Kristel RAGLAND Unavailable Florissant, F. Kristel RAGLAND Unavailable [place]iss[place], F. Kristel RAGLAND Unavailable Florissant, F. Kristel RAGLAND Unavailable Florissant, F. Kristel RAGLAND Unavailable Florissant, F. Kristel RAGLAND Unavailable Florissant, F. Kristel RAGLAND Unavailable Florissant, F. Kristel RAGLAND Unavailable Florissant, F. Kristel RAGLAND Unavailable Florissant, F. Kristel RAGLAND Unavailable Florissant, F. Kristel RAGLAND Unavailable Florissant, F. Kristel RAGLAND Unavailable Florissant, F. Kristel RAGLAND Unavailable Florissant, F. Kristel RAGLAND Unavailable Florissant, F. Kristel RAGLAND Unavailable Florissant, F. Kristel RAGLAND Unavailable Florissant, F. Kristel RAGLAND Unavailable [place]iss[place], . Day Unavailable [place], . Day Unavailable [place], . Day MD Unavailable [place], . Day MD Unavailable [place], . Day MD Unavailable [place], . Day MD Unavailable [place], . Day MD Unavailable [place], . Day MD Unavailable [place], . Day MD Unavailable [place], . Day MD Unavailable [place], . Day MD Unavailable [place], . Day MD Unavailable [place], . Day MD Unavailable [place], . Day MD Unavailable [facility]. Day MD Unavailable [facility] Day MD Unavailable Unavailable LUIS, BHUPENDRA RAGLAND Unavailable Unavailable LUIS, BHUPENDRA RAGLAND Unavailable Unavailable LUIS, BHUPENDRA RAGLAND Unavailable Unavailable LUIS, BHUPENDRA RAGLAND Unavailable Unavailable LUIS, BHUPENDRA RAGLAND Unavailable Unavailable LUIS, BHUPENDRA RAGLAND Unavailable Unavailable LUIS, BHUPENDRA RAGLAND Unavailable Unavailable LUIS, BHUPENDRA RAGLAND Unavailable Unavailable LUIS, BHUPENDRA RAGLAND Unavailable Unavailable LUIS, BHUPENDRA RAGLAND Unavailable Unavailable LUIS, BHUPENDRA RAGLAND Unavailable Unavailable LUIS, BHUPENDRA RAGLAND Unavailable Unavailable LUIS, BHUPENDRA RAGLAND Unavailable Unavailable LUIS, BHUPENDRA RAGLAND Unavailable Unavailable LUIS, BHUPENDRA RAGLAND Unavailable Unavailable LUIS, BHUPENDRA RAGLAND Unavailable Unavailable LUIS, BHUPENDRA RAGLAND Unavailable Unavailable LUIS, BHUPENDRA RAGLAND Unavailable Unavailable LUIS, BHUPENDRA RAGLAND Unavailable Unavailable LUIS, BHUPENDRA RAGLAND Unavailable Unavailable LUIS, BHUPENDRA RAGLAND Unavailable Unavailable LUIS, BHUPENDRA RAGLAND Unavailable Unavailable LUIS, BHUPENDRA RAGLAND Unavailable Unavailable LUIS, BHUPENDRA RAGLAND Unavailable Unavailable LUIS, BHUPENDRA RAGLAND Unavailable Unavailable LUIS, BHUPENDRA RAGLAND Unavailable Unavailable LUIS, BHUPENDRA RAGLAND Unavailable Unavailable LUIS, BHUPENDRA RAGLAND Unavailable Unavailable LUIS, BHUPENDRA RAGLAND Unavailable Unavailable LUIS, BHUPENDRA RAGLAND Unavailable Unavailable LUIS, BHUPENDRA RAGLAND Unavailable Unavailable LUIS, BHUPENDRA RAGLAND Unavailable Unavailable LUIS, BHUPENDRA RAGLAND Unavailable Unavailable LUIS, BHUPENDRA RAGLAND Unavailable Unavailable LUIS, BHUPENDRA RAGLAND Unavailable Unavailable LUIS, BHUPENDRA RAGLAND Unavailable Unavailable LUIS, BHUPENDRA RAGLAND Unavailable Unavailable LUIS, HUIZAR MD Unavailable Unavailable LUIS, HUIZAR MD Unavailable Unavailable LUIS, HUIZAR MD Unavailable Unavailable LUIS, HUIZAR MD Unavailable Unavailable LUIS, HUIZAR MD Unavailable Unavailable LUIS, HUIZAR MD Unavailable Unavailable LUIS, HUIZAR MD Unavailable Unavailable LUIS, HUIZAR MD Unavailable Unavailable LUIS, HUIZAR MD Unavailable Unavailable LUIS, HUIZAR MD Unavailable Unavailable LUIS, HUIZAR MD Unavailable Unavailable LUIS, HUIZAR MD Unavailable Unavailable LUIS, HUIZAR MD Unavailable Unavailable LUIS, HUIZAR MD Unavailable Unavailable LUIS, HUIZAR MD Unavailable Unavailable LUIS, HUIZAR MD Unavailable Unavailable LUIS, HUIZAR MD Unavailable Unavailable ColinIsamar rios MD Unavailable Unavailable ColinIsamar rios MD Unavailable Unavailable ColinIsamar MD Unavailable Unavailable ColinIsamar rios MD Unavailable Unavailable ColinIsamar MD Unavailable Unavailable ColinIsamar MD Unavailable Unavailable ColinIsamar MD Unavailable Unavailable ColinIsamar MD Unavailable Unavailable ColinIsamar rios MD Unavailable Unavailable ColinIsamar MD Unavailable Unavailable ColinIsamar rios MD Unavailable Unavailable ColinIsamar rios MD Unavailable Unavailable ColinIsamar MD Unavailable Unavailable ColinIsamar rios MD Unavailable Unavailable ColinIsamar rios MD Unavailable Unavailable ColinIsamar rios MD Unavailable Unavailable ColinIsamar rios MD Unavailable Unavailable ColinIsamar rios MD Unavailable Unavailable ColinIsamar rios MD Unavailable Unavailable ColinIsamar rios MD Unavailable Unavailable ColinIsamar rios MD Unavailable Unavailable ColinIsamar rios MD Unavailable Unavailable ColinIsamar rios MD Unavailable Unavailable Spencer Armijo MD Unavailable Unavailable DARVIN, PARTHA PA Unavailable Unavailable DARVIN, PARTHA PA Unavailable Unavailable DARVIN, PARTHA PA Unavailable Unavailable DARVIN, PARTHA PA Unavailable Unavailable DARVIN, PARTHA PA Unavailable Unavailable DARVIN, PARTHA PA Unavailable Unavailable DARVIN, PARTHA PA Unavailable Unavailable ZofiaSpencer quick MD Unavailable Unavailable Re-disclosure Warning The records that you are about to access may contain information from federally-assisted alcohol or drug abuse programs. If such information is present, then the following federally mandated warning applies: This information has been disclosed to you from records protected by federal confidentiality rules (42 CFR part 2). The federal rules prohibit you from making any further disclosure of this information unless further disclosure is expressly permitted by the written consent of the person to whom it pertains or as otherwise permitted by 42 CFR part 2. A general authorization for the release of medical or other information is NOT sufficient for this purpose. The Federal rules restrict any use of the information to criminally investigate or prosecute any alcohol or drug abuse patient.The records that you are about to access may contain highly sensitive health information, the redisclosure of which is protected by Article 27-F of the [facility] Public Health law. If you continue you may have access to information: Regarding HIV / AIDS; Provided by facilities licensed or operated by the [facility] Office of Mental Health; or Provided by the [facility] Office for People With Developmental Disabilities. If such information is present, then the following [facility] mandated warning applies: This information has been disclosed to you from confidential records which are protected by state law. State law prohibits you from making any further disclosure of this information without the specific written consent of the person to whom it pertains, or as otherwise permitted by law. Any unauthorized further disclosure in violation of state law may result in a fine or longterm sentence or both. A general authorization for the release of medical or other information is NOT sufficient authorization for further disc losure. Allergies and Adverse Reactions Type Description Substance Reaction Status Data Source(s ) Drug allergy Drug allergy No Known Allergies [facility] Encounters Encounter Providers Location Date Indications Data Source(s ) Emergency Attender: PARTHA CRAMER ED-ED 09/18 02:28:00 PM EST - 09/18/2020 02:56:00 PM EST rash [facility] rash Patient discharged. Outpatient Attender: Kole Perez NP [facility] 07/29 09:25:00 AM EDT - 07/29/2020 09:26:00 AM EDT ADENOCARCINOMA OF LUNG [facility] ADENOCARCINOMA OF LUNG Patient discharged. Outpatient Attender: Raad Armijo MDAttender: Raad Armijo MD [facility] 07/11/2020 07:42:00 AM EDT - 07/11/2020 07:43:00 AM EDT LUNG CANCER [facility] LUNG CANCER Patient discharged. Outpatient Attender: Raad Armijo MDAttender: Raad Armijo MD [facility] 06/16/2020 01:18:00 PM EDT - 06/16/2020 01:19:00 PM EDT LUNG CANCER [facility] LUNG CANCER Patient discharged. Outpatient Attender: Kristel Campos MDAttender: Kristel Campos MD [facility] 05/27/2020 09:24:00 AM EDT - 05/27/2020 09:25:00 AM EDT CBC CMP TSH C5 [facility] CBC CMP TSH C5 Patient discharged. Outpatient ALBERTAJJordi 05/06/2020 02:53:00 PM EDT [facility] Outpatient Attender: Kristel Campos MDAttender: Kristel Campos MD ED- LAB 05/06/2020 10:41:00 AM EDT - 05/06/2020 10:42:00 AM EDT LUNG CANCER [facility] LUNG CANCER Patient discharged. Emergency Attender: EFE QUISPE MD ED-ED 0 04/03/2020 03:22:00 PM EDT - 04/03/2020 04:08:00 PM EDT RED BLOTCHES ON RT SHOULDER [facility] RED BLOTCHES ON RT SHOULDER Patient discharged. Outpatient Attender: Kristel Campos MDAttender: Kristel Campos MD ED- LAB 03/21/2020 09:15:00 AM EDT - 03/21/2020 09:16:[address] [facility] LUNG CANCER Patient discharged. Outpatient 03/09/2020 05:11:00 AM EDT [facility] Outpatient Attender: Kristel Campos MDAttender: Kristel Campos MD ED- LAB 02/22/2020 09:15:00 AM EDT - 02/22/2020 09:16:00 AM EDT SEE [facility] SEE ORDER Patient discharged. [facility]/01/2020 02:52:00 PM EDT [facility] Outpatient Attender: Kristel Campos MDAttender: Kristel Campos MD ED- LAB 02/01/2020 09:16:00 AM EDT - 02/01/2020 09:17:00 AM EDT SEE [facility] SEE ORDER Patient discharged. Outpatient ALBERTAJJordi 01/11/2020 10:05:00 AM EDT [facility] Outpatient Attender: Kristel Campos MDAttender: Kristel Campos MD ED- LAB 01/11/2020 09:24:00 AM EDT - 01/11/2020 09:25:00 AM EDT LUNG CANCER [facility] LUNG CANCER Patient discharged. Outpatient 12/28/2019 03:31:00 PM EST [facility] Outpatient [facility] 12/21/2019 10:00:00 AM [facility] Outpatient Attender: Kristel Campos MDAttender: Kristel Campos MD ED- [facility] 12/21/2019 08:25:00 AM EST - 12/21/2019 08:26:00 AM EST LUNG CA [facility] LUNG CA Patient discharged. Outpatient Attender: Kristel Campos MDAttender: Kristel Campos MD ED- [facility] 11/30/2019 08:48:00 AM EST - 11/30/2019 08:49:00 AM EST SEE ORDER [facility] SEE ORDER Patient discharged. Outpatient Attender: Isamar De Anda/Fiordaliza/Benedict/Brett ndl 11/17/2019 09:30:00 AM EST [facility] Outpatient [facility] 11/13/2019 09:50:00 AM [facility] 11/12/2019 06:59:00 PM [facility] Emergency Attender: EFE QUISPE MD ED-ED 0 11/12/2019 03:38:00 PM EST - 11/12/2019 07:42:00 PM EST ABDOMINAL PAIN [facility] ABDOMINAL PAIN Patient discharged. Outpatient Attender: BHUPENDRA SMITH MD [facility] 0 12:00:00 AM EST - 11/12/2019 03:36:49 PM EST [facility] Outpatient [facility] 10/19/2019 10:12:00 AM [facility] Outpatient Attender: Kristel Campos MDAttender: Kristel Campos MD ED- IMAG 10/19/2019 07:50:00 AM EST - 10/19/2019 07:51:00 AM EST & NECK US- RT LUNG CANCER , EVAL DVT [facility] & NECK US- RT LUNG CANCER , EVAL DVT Patient discharged. Medications Medication Brand Name Start Date Product Form Dose Route Admi nistrative Instructions Pharmacy Instructions Status Indications Reaction Description Data Source(s) Metformin hydrochloride 1000 MG Oral Tablet 1,000 mg METFORM IN HCL 11/11/2020 12:00:00 AM EST tablet 180 TAKE ONE TABLET BY MOUTH TWICE A DAY WITH MEALS TAKE ONE TABLET BY MOUTH TWICE A DAY WITH MEALS SOLD: 11/11/2020 [facility] 5 mg 11/11/2020 12:00:00 AM EST tablet 90 TAKE ONE TABLET BY MOUTH EVERY DAY TAKE ONE TABLET BY MOUTH EVERY DAY SOLD: 11/11/2020 [facility] 100 mg 11/11/2020 12:00:00 AM EST tablet 90 TAKE ONE TABLET BY MOUTH EVERY DAY TAKE ONE TABLET BY MOUTH EVERY DAY SOLD: 11/11/2020 [facility] 10 mg 11/11/2020 12:00:00 AM EST tablet 90 TAKE ONE TABLET BY MOUTH EVERY EVENING TAKE ONE TABLET BY MOUTH EVERY EVENING SOLD: 11/11/2020 [facility] 500 mg 10/31/2020 12:00:00 AM EST tablet 20 TAKE ONE TABLET BY MOUTH TWICE A DAY FOR 10 DAYS TAKE ONE TABLET BY MOUTH TWICE A DAY FOR 10 DAYS SOLD: 10/31/2020 [facility] 2.5 mg 10/26/2020 12:00:00 AM EST tablet 60 TAKE ONE TABLET BY MOUTH TWICE A DAY TAKE ONE TABLET BY MOUTH TWICE A DAY SOLD: 10/27/2020 [facility] 1,000-62.5 mg 10/05/2020 12:00:00 AM EST tablet extended rel ease 12 hr 20 TAKE ONE TABLET BY MOUTH TWICE A DAY TAKE ONE TABLET BY MOUTH TWICE A DAY SOLD: 10/06/2020 [facility] 12 HR Guaifenesin 600 MG Extended Release Oral Tablet GUAIFE NESIN 10/03/2020 12:00:00 AM EST tablet extended release 12hr 21 BEAU E ONE TABLET BY MOUTH EVERY 8 HOURS NEEDED FOR COUGH TAKE ONE TABLET BY MOUTH EVERY 8 HOURS A S NEEDED FOR COUGH SOLD: 10/06/2020 [facility] 50 mcg (2,000 unit) 09/22/2020 12:00:00 AM EST capsule 90 TAKE ONE CAPSULE BY MOUTH EVERY DAY TAKE ONE CAPSULE BY MOUTH EVERY DAY SOLD: 09/23/2020 [facility] 100 mg 09/18/2020 12:00:00 AM EST tablet 15 TAKE 2 TABLETS BY MOUTH NOW, THEN 1 TABLET DAILY TAKE 2 TABLETS BY MOUTH NOW, THEN 1 TABLET DAILY SOLD: 09/18/2020 [facility] Nystatin 701051 UNT/ML Topical Cream 100,000 unit/gram NYSTA TIN 09/18/2020 12:00:00 AM EST cream 15 APPLY TO AFFECTED AREA(S) TWO TIMES A DAY APPLY TO AFFECTED AREA(S) TWO TIMES A DAY SOLD: 09/18/2020 [facility] 10 mg 08/18/2020 12:00:00 AM EDT tablet 30 TAKE ONE TABLET BY MOUTH EVERY 6 HOURS NEEDED FOR NAUSEA OR VOMITING TAKE ONE TABLET BY MOUTH EVERY 6 HOURS A S NEEDED FOR NAUSEA OR VOMITING SOLD: 08/18/2020 [facility] 4 mg 08/18/2020 12:00:00 AM EDT tablet 30 TAKE ONE TABLET BY MOUTH EVERY 12 HOURS TAKE ONE TABLET BY MOUTH EVERY 12 HOURS SOLD: 10/27/2020 [facility] 4 mg 08/18/2020 12:00:00 AM EDT tablet 30 TAKE ONE TABLET BY MOUTH EVERY 12 HOURS TAKE ONE TABLET BY MOUTH EVERY 12 HOURS SOLD: 08/18/2020 [facility] 8 mg 08/18/2020 12:00:00 AM EDT tablet 30 TAKE ONE TABLET BY MOUTH EVERY 8 HOURS NEEDED FOR NAUSEA AND VOMITING TAKE ONE TABLET BY MOUTH EVERY 8 HOURS NEEDED FOR NAUSEA AND VOMITING SOLD: 08/18/2020 [facility] 10 mg 08/10/2020 12:00:00 AM EDT tablet 90 TAKE ONE TABLET BY MOUTH EVERY EVENING TAKE ONE TABLET BY MOUTH EVERY EVENING SOLD: 08/18/2020 [facility] 5 mg 08/10/2020 12:00:00 AM EDT tablet 90 TAKE ONE TABLET BY MOUTH EVERY DAY TAKE ONE TABLET BY MOUTH EVERY DAY SOLD: 08/18/2020 [facility] 100 mg 08/10/2020 12:00:00 AM EDT tablet 90 TAKE ONE TABLET BY MOUTH EVERY DAY TAKE ONE TABLET BY MOUTH EVERY DAY SOLD: 08/18/2020 [facility] Metformin hydrochloride 1000 MG Oral Tablet 1,000 mg METFORM IN HCL 08/10/2020 12:00:00 AM EDT tablet 180 TAKE ONE TABLET BY MOUTH TWICE A DAY WITH MEALS TAKE ONE TABLET BY MOUTH TWICE A DAY WITH MEALS SOLD: 08/18/2020 [facility] 5 mg 05/30/2020 12:00:00 AM EDT tablet 30 TAKE ONE TABLET BY MOUTH EVERY 12 HOURS TAKE ONE TABLET BY MOUTH EVERY 12 HOURS SOLD: 08/03/2020 [facility] 5 mg 05/30/2020 12:00:00 AM EDT tablet 30 TAKE ONE TABLET BY MOUTH EVERY 12 HOURS TAKE ONE TABLET BY MOUTH EVERY 12 HOURS SOLD: 05/30/2020 [facility] 5 mg 05/30/2020 12:00:00 AM EDT tablet 30 TAKE ONE TABLET BY MOUTH EVERY 12 HOURS TAKE ONE TABLET BY MOUTH EVERY 12 HOURS SOLD: 07/08/2020 [facility] 5 mg 05/30/2020 12:00:00 AM EDT tablet 30 TAKE ONE TABLET BY MOUTH EVERY 12 HOURS TAKE ONE TABLET BY MOUTH EVERY 12 HOURS SOLD: 09/15/2020 [facility] [id number] 04/25/2020 12:00:00 AM EDT Suspension 300 TAKE 10ML SWISH AND SPIT FOUR TIMES A DAY NEEDED TAKE 10ML SWISH AND SPIT FOUR TIMES A DA Y NEEDED SOLD: 04/25/2020 [facility] 5 mg 04/18/2020 12:00:00 AM EDT tablet 70 TAKE 2 TABLETS BY MOUTH TWICE A DAY FOR 7 DAYS THEN 1 TABLET TWICE A DAY TAKE 2 TABLETS BY MOUTH TWICE A DAY FOR 7 DAYS THEN 1 TABLET TWICE A DAY SOLD: 04/18/2020 [facility] Docusate Sodium 50 MG / sennosides, FDC 8.6 MG Oral Ta blet 8.6-50 mg SENNOSIDES/DOCUSATE SODIUM 04/11/2020 12:00:00 AM EDT tablet 60 TAKE ONE TABLET BY MOUTH TWICE A DAY TAKE ONE TABLET BY MOUTH TWICE A DAY SOLD: 04/11/2020 [facility] 15 mg 04/11/2020 12:00:00 AM EDT tablet 120 TAKE 1 TABLET BY MOUTH 4 TIMES A DAY NEEDED FOR PAIN MAXIMUM DAILY DOSE = 4 TAKE 1 TABLET BY MOUTH 4 TIMES A DAY NEEDED FOR PAIN MAXIMUM DAILY DOSE = 4 SOLD: 04/11/2020 [facility] 4 mg/actuation 04/11/2020 12:00:00 AM EDT spray,non-aerosol 2 USE DIRECTED USE DIRECTED SOLD: 04/11/2020 [facility] 17 gram/dose 04/11/2020 12:00:00 AM EDT powder 510 MIX 17 GRAMS (1 CAPFUL) WITH 4-8 OZ OF WATER OR JUICE AND DRINK ONCE DAILY MIX 17 GRAMS (1 CAPFUL) WITH 4-8 OZ OF WATER OR JUICE AND DRINK ONCE DAILY SOLD: 04/11/2020 [facility] 30 mg 04/11/2020 12:00:00 AM EDT tablet extended release 60 TAKE ONE TABLET BY MOUTH TWICE A DAY FOR PAIN MAXIMUM DAILY DOSE = 2 TAKE ONE TABLET BY MOUTH TWICE A DAY FOR PAIN MAXIMUM DAILY DOSE = 2 SOLD: 04/11/2020 [facility] 100 mg 04/06/2020 12:00:00 AM EDT capsule 90 TAKE THREE CAPSULES BY MOUTH THREE TIMES A DAY TAKE THREE CAPSULES BY MOUTH THREE TIMES A DAY SOLD: 04/24/2020 [facility] 5-325 mg 04/06/2020 12:00:00 AM EDT tablet 10 TAKE 1 TABLET BY MOUTH TWICE A DAY NEEDED FOR PAIN MAXIMUM DAILY DOSE = 2 TAKE 1 TABLET BY MOUTH TWICE A DAY NEEDED FOR PAIN MAXIMUM DAILY DOSE = 2 SOLD: 04/06/2020 [facility] 100 mg 04/06/2020 12:00:00 AM EDT capsule 90 TAKE THREE CAPSULES BY MOUTH THREE TIMES A DAY TAKE THREE CAPSULES BY MOUTH THREE TIMES A DAY SOLD: 04/06/2020 [facility] 22.3-6.8 mg/mL 04/03/2020 12:00:00 AM EDT drops 20 INSTILL 1 DROP INTO BOTH EYES TWO TIMES A DAY DIRECTED INSTILL 1 DROP INTO BOTH EYES TWO TIMES A DAY DIRECTED SOLD: 04/03/2020 [facility] 150 mg/mL 03/23/2020 12:00:00 AM EDT syringe 30 INJECT ONE MILLILITER UNDER THE SKIN EVERY DAY INJECT ONE MILLILITER UNDER THE SKIN EVERY DAY SOLD: 03/23/2020 [facility] 100 mg 03/22/2020 12:00:00 AM EDT capsule 90 TAKE ONE CAPSULE BY MOUTH THREE TIMES A DAY TAKE ONE CAPSULE BY MOUTH THREE TIMES A DAY SOLD: 03/22/2020 [facility] 5-325 mg 03/18/2020 12:00:00 AM EDT tablet 20 TAKE ONE TABLET BY MOUTH EVERY 6 HOURS NEEDED FOR SEVERE PAIN MAXIMUM DAILY DOSE = FOUR TABLETS TAKE ONE TABLET BY MOUTH EVERY 6 HOURS NEEDED FOR SEVERE PAIN MAXIMUM DAILY DOSE = FOUR TABLETS SOLD: 03/18/2020 [facility] 62.5 mcg/actuation 03/15/2020 12:00:00 AM EDT blister with d evice 90 INHALE ONE PUFF BY MOUTH EVERY DAY INHALE ONE PUFF BY MOUTH EVERY DAY SOLD: 03/16/2020 [facility] 100 mg 01/28/2020 12:00:00 AM EDT tablet 90 TAKE ONE TABLET BY MOUTH EVERY DAY TAKE ONE TABLET BY MOUTH EVERY DAY SOLD: 05/17/2020 [facility] 5 mg 01/28/2020 12:00:00 AM EDT tablet 90 TAKE ONE TABLET BY MOUTH EVERY DAY TAKE ONE TABLET BY MOUTH EVERY DAY SOLD: 05/17/2020 [facility] 100 mg 01/28/2020 12:00:00 AM EDT tablet 90 TAKE ONE TABLET BY MOUTH EVERY DAY TAKE ONE TABLET BY MOUTH EVERY DAY SOLD: 02/01/2020 [facility] 5 mg 01/28/2020 12:00:00 AM EDT tablet 90 TAKE ONE TABLET BY MOUTH EVERY DAY TAKE ONE TABLET BY MOUTH EVERY DAY SOLD: 02/01/2020 [facility] 1,000 mg 01/20/2020 12:00:00 AM EDT tablet 180 TAKE ONE TABLET BY MOUTH TWICE A DAY WITH MEALS TAKE ONE TABLET BY MOUTH TWICE A DAY WITH MEALS SOLD: 02/01/2020 [facility] 1,000 mg 01/20/2020 12:00:00 AM EDT tablet 180 TAKE ONE TABLET BY MOUTH TWICE A DAY WITH MEALS TAKE ONE TABLET BY MOUTH TWICE A DAY WITH MEALS SOLD: 05/17/2020 [facility] 10 mg 01/20/2020 12:00:00 AM EDT tablet 90 TAKE ONE TABLET BY MOUTH IN THE EVENING TAKE ONE TABLET BY MOUTH IN THE EVENING SOLD: 02/01/2020 [facility] 10 mg 01/20/2020 12:00:00 AM EDT tablet 90 TAKE ONE TABLET BY MOUTH IN THE EVENING TAKE ONE TABLET BY MOUTH IN THE EVENING SOLD: 05/17/2020 [facility] 0.005 % 12/15/2019 12:00:00 AM EST drops 7 INSTILL ONE DROP IN EACH EYE ONCE DAILY IN THE EVENING DIRECTED INSTILL ONE DROP IN EACH EYE ONCE DAILY IN THE EVENING DIRECTED SOLD: 12/15/2019 [facility] 0.2-0.5 % 12/15/2019 12:00:00 AM EST drops 15 INSTILL ONE DROP IN EACH EYE TWO TIMES A DAY DIRECTED INSTILL ONE DROP IN EACH EYE TWO TIMES A DAY DIRECTED SOLD: 12/15/2019 [facility] 0.005 % 12/15/2019 12:00:00 AM EST drops 7 INSTILL ONE DROP IN EACH EYE ONCE DAILY IN THE EVENING DIRECTED INSTILL ONE DROP IN EACH EYE ONCE DAILY IN THE EVENING DIRECTED SOLD: 02/01/2020 [facility] 0.005 % 12/15/2019 12:00:00 AM EST drops 7 INSTILL ONE DROP IN EACH EYE ONCE DAILY IN THE EVENING DIRECTED INSTILL ONE DROP IN EACH EYE ONCE DAILY IN THE EVENING DIRECTED SOLD: 04/11/2020 [facility] 62.5 mcg/actuation 11/17/2019 12:00:00 AM EST blister with d evice 90 INHALE ONE PUFF BY MOUTH EVERY DAY INHALE ONE PUFF BY MOUTH EVERY DAY SOLD: 11/18/2019 [facility] 90 mcg/actuation 11/17/2019 12:00:00 AM EST [facility] aerosol inha ler 18 INHALE ONE PUFF BY MOUTH EVERY 6 HOURS NEEDED INHALE ONE PUFF BY MOUTH EVERY 6 HOURS NEEDED SOLD: 11/18/2019 [facility] 90 mcg/actuation 11/17/2019 12:00:00 AM EST HFA aerosol inha ler 18 INHALE ONE PUFF BY MOUTH EVERY 6 HOURS NEEDED INHALE ONE PUFF BY MOUTH EVERY 6 HOURS NEEDED SOLD: 08/22/2020 [facility] 5-325 mg 11/13/2019 12:00:00 AM EST tablet 20 TAKE ONE TABLET BY MOUTH EVERY 6 HOURS NEEDED FOR SEVERE PAIN MAXIMUM DAILY DOSE = FOUR TABLETS TAKE ONE TABLET BY MOUTH EVERY 6 HOURS NEEDED FOR SEVERE PAIN MAXIMUM DAILY DOSE = FOUR TABLETS SOLD: 11/13/2019 [facility] 100 mg 10/15/2019 12:00:00 AM EST tablet 90 TAKE ONE TABLET BY MOUTH EVERY DAY TAKE ONE TABLET BY MOUTH EVERY DAY SOLD: 10/26/2019 [facility] 8 mg 10/02/2019 12:00:00 AM EST tablet 30 TAKE 1 TABLET BY MOUTH EVERY 8 HOURS NEEDED FOR NAUSEA OR VOMITING TAKE 1 TABLET BY MOUTH EVERY 8 HOURS NEEDED FOR NAUSEA OR VOMITING SOLD: 10/05/2019 [facility] 10 mg 10/02/2019 12:00:00 AM EST tablet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 up to 10% results with up to 10% decrease in measurement increase in measurement Recommend patients be collected for this test prior to administration of either drug. SGPT(ALT) 70 U/L 12-78 Normal (applies to non-numeric resul ts) [facility] Note the following drug interference: Sulfasalazine Sulfapyridine Can see falsely depressed Can see falsely elevated result with up to 29% results with up to 10% decrease in measurement increase in measurement Recommend patients be collected for this test prior to administration of either drug. Alkaline Phosphatase 66 U/L 38-126 Normal (applies to non-num martha results) [facility] can increase Alkaline Phosp le vels up to 2 times the normal adult value. Normal values for children and adolescents are 2 to 3 times the normal adult value. Total Protein 6.0-8.2 Normal (applies to non-numeric re sults) [facility] Albumin Level 3.4-5.0 Normal (applies to non-numeric re sults) [facility] ID Date Data Source [id number] [facility] Interpretation Code Description Data Keysha rce(s) Supporting Document(s) Thyroid Stimulate Hormone TSH 0.358-3.74 No rmal (applies to non-numeric results) [facility] ID Date Data Source [id number] 05/27/2020 11:00:00 AM EDT [facility] Name Value Range Interpretation Code Description Data Keysha rce(s) Supporting Document(s) Free T4 (Free Thyroxine) 0.76-1.46 Normal (applies to non -numeric results) [facility] ID Date Data Source [id number] 05/27/2020 10:30:00 AM EDT [facility] Name Value Range Interpretation Code Description Data Keysha rce(s) Supporting Document(s) White Blood Count 3.5-10.5 Normal (applies to non-numeri c results) [facility] Red Blood Count 4.30-5.70 Below low normal [facility] Hemoglobin 13.5-17.5 Below low normal [facility] Hematocrit 38.8-50.0 Normal (applies to non-numeric resul ts) [facility] Mean Corpuscular Volume 81.2-95.1 Normal (applies to non- numeric results) [facility] Mean Corpuscular Hgb 25.6-32.2 Normal (applies to non-num martha results) [facility] Mean Corpuscular Hgb Conc 32.0-36.0 Normal (applies to no n-numeric results) [facility] Red Cell Distribution Width 11.8-15.6 Normal (appli es to non-numeric results) [facility] Platelet Count 246 x10 3/uL 150-450 Normal (applies to non-numeric results) [facility] Mean Platelet Volume 9.4-12.4 Below low normal [facility] Neutrophils% (Auto) 31.0-71.0 Normal (applies to non-nume tita results) [facility] Lymphocytes% (Auto) 20.0-55.0 Normal (applies to non-nume tita results) [facility] Monocytes% (Auto) 4.0-12.0 Normal (applies to non-numeri c results) [facility] Eosinophils% (Auto) 1.0-8.0 Above high normal [facility] Basophils% (Auto) 0.0-2.0 Normal (applies to non-numeri c results) [facility] Immature Granulocytes% (Auto) 0.0-2.0 Normal (raquel lies to non-numeric results) [facility] Neutrophils# (Auto) 1.50-6.20 Normal (applies to non-nume tita results) [facility] Lymphocytes# (Auto) 1.20-4.00 Normal (applies to non-nume tita results) [facility] Monocytes# (Auto) 0.00-0.90 Normal (applies to non-numeri c results) [facility] Eosinophils# (Auto) 0.00-0.50 Above high normal [facility] Basophils# (Auto) 0.00-0.20 Normal (applies to non-numeri c results) [facility] Immature Granulocytes# (Auto) 0.00-7.00 No rmal (applies to non-numeric results) [facility] ID Date Data Source [id number] 05/06/2020 05:40:00 PM EDT [facility] Name Value Range Interpretation Code Description Data Keysha rce(s) Supporting Document(s) [facility] Urine Creatinine result Normal (applies t o non-numeric results) [facility] Interpret with care as there is no estab lished reference range associated with this assay's methodology that pertains to this particular sex and/or age. [facility] Microalbumin,Ur result <1.7 [facility] Alb/Cre Ratio,Ur result Normal (applies t o non-numeric results) [facility] Test Performed By: [facility] [address] [place] [address] Director: Gino Hoyt MD Reference Ranges for Microalbumin,spot: Normal <30 ug/mg creatinine Microalbuminuria 30-300 ug/mg creatinine Clinical Albuminuria >300 ug/mg creatinine ID Date Data Source [id number] 05/06/2020 05:16:00 PM EDT [facility] Name Value Range Interpretation Code Description Data Keysha rce(s) Supporting Document(s) Creatinine,Urine Normal (applies to non-numeric results) [facility] Interpret with care as there is no estab lished reference range associated with this assay's methodology that pertains to this particular sex and/or age. Microalbumin,Urine <1.7 Above high normal [facility] Albumin/Creatinine Ratio,Urine Normal (applies to non-numeric results) [facility] Test Performed By: [facility] [address] [place] [address] Director: Gino Hoyt MD Reference Ranges for Microalbumin,spot: Normal <30 ug/mg creatinine Microalbuminuria 30-300 ug/mg creatinine Clinical Albuminuria >300 ug/mg creatinine ID Date Data Source [id number] 05/06/2020 12:45:00 PM EDT [facility] Name Value Range Interpretation Code Description Data Keysha rce(s) Supporting Document(s) Vitamin D, Total 30.0-100.0 Below low normal [facility] ID Date Data Source [id number] 05/06/2020 12:14:00 PM EDT [facility] Name Value Range Interpretation Code Description Data Keysha rce(s) Supporting Document(s) Color,Urine Colorl-Dk Y Normal (applies to non-numeric res ults) [facility] Clarity,Urine Clear Normal (applies to non-numeric re sults) [facility] Specific [place],Urine 1.005-1.030 Normal (applies to non- numeric results) [facility] pH,Urine 5.0-8.0 Normal (applies to non-numeric resul ts) [facility] Protein,Urine Negative [facility] Glucose,Urine Negative [facility] Ketones,Urine Negative [facility] Blood,Urine Negative Normal (applies to non-numeric resu lts) [facility] Bilirubin,Urine Negative Normal (applies to non-numeric results) [facility] Urobilinogen,Urine 0.2-1.0 Normal (applies to non-numer ic results) [facility] Leukocyte Esterase,Urine Negative Normal (applies to non -numeric results) [facility] Nitrite,Urine Negative Normal (applies to non-numeric re sults) [facility] RBC,Urine None Seen Normal (applies to non-numeric resul ts) [facility] WBC,Urine None Seen Normal (applies to non-numeric resul ts) [facility] Casts,Urine None Seen Normal (applies to non-numeric resu lts) [facility] Squamous Cells,Urine None Seen [facility] Amorphous Sediment,Urine None Seen [facility] Bacteria,Urine None Seen [facility] ital Mucus,Urine None Seen [facility] ID Date Data Source [id number] 05/06/2020 12:09:00 PM EDT [facility] Name Value Range Interpretation Code Description Data Keysha rce(s) Supporting Document(s) Sodium 140 mmol/L 136-145 Normal (applies to non-numeric resul ts) [facility] Potassium 3.5-5.1 Normal (applies to non-numeric resul ts) [facility] Chloride 104 mmol/L 98-107 Normal (applies to non-numeric resul ts) [facility] Carbon Dioxide CO2 21-32 Normal (applies to non-numer ic results) [facility] Anion Gap 5.0-16.0 Normal (applies to non-numeric resul ts) [facility] BUN 7 mg/dL 7-18 Normal (applies to non-numeric results) [facility] Creatinine,Serum 0.8-1.5 Normal (applies to non-numeric results) [facility] GFR >60 Normal (applies to non-numeric results) [facility] Glucose Level 202 mg/dL 60-99 Above high normal [facility] Reference range is only applicable when patient is fasting Note the following drug interference: Sulfasalazine Sulfapyridine Can see falsely depressed Can see falsely elevated result with up to 17% results with up to 11% decrease in measurement increase in measurement Recommend patients be collected for this test prior to administration of either drug. Calcium 8.5-10.1 Normal (applies to non-numeric resul ts) [facility] Bilirubin,Total 0.1-1.9 Normal (applies to non-numeric results) [facility] SGOT(AST) 23 U/L 15-37 Normal (applies to non-numeric resul ts) [facility] Note the following drug interference: Sulfasalazine Sulfapyridine Can see falsely depressed Can see falsely elevated result with up to 10% results with up to 10% decrease in measurement increase in measurement Recommend patients be collected for this test prior to administration of either drug. SGPT(ALT) 82 U/L 12-78 Above high normal [facility] Note the following drug interference: Sulfasalazine Sulfapyridine Can see falsely depressed Can see falsely elevated result with up to 29% results with up to 10% decrease in measurement increase in measurement Recommend patients be collected for this test prior to administration of either drug. Alkaline Phosphatase 62 U/L 38-126 Normal (applies to non-num martha results) [facility] can increase Alkaline Phosp le vels up to 2 times the normal adult value. Normal values for children and adolescents are 2 to 3 times the normal adult value. Total Protein 6.0-8.2 Normal (applies to non-numeric re sults) [facility] Albumin Level 3.4-5.0 Normal (applies to non-numeric re sults) [facility] ID Date Data Source [id number] 05/06/2020 12:09:00 PM EDT [facility] Name Value Range Interpretation Code Description Data Keysha rce(s) Supporting Document(s) Thyroid Stimulate Hormone TSH 0.358-3.74 No rmal (applies to non-numeric results) [facility] ID Date Data Source [id number] 05/06/2020 12:09:00 PM T [facility] Name Value Range Interpretation Code Description Data Keysha rce(s) Supporting Document(s) Free T4 (Free Thyroxine) 0.76-1.46 Normal (applies to non -numeric results) [facility] ID Date Data Source [id number] 05/06/2020 12:08:[address] [facility] Name Value Range Interpretation Code Description Data Keysha rce(s) Supporting Document(s) Triglycerides 76 mg/dL <150 Normal (applies to non-numeric re sults) [facility] Cholesterol 153 mg/dL 100-200 Normal (applies to non-numeric resu lts) [facility] LDL Cholesterol Calculated 95 0-130 Normal (applies to n on-numeric results) [facility] HDL Cholesterol 43 mg/dL 40-60 Normal (applies to non-numeric results) [facility] Cholesterol/HDL Ratio 3.6-6.7 Normal (applies to non-nu meric results) [facility] ID Date Data Source [id number] 05/06/2020 11:38:00 AM EDT [facility] Name Value Range Interpretation Code Description Data Keysha rce(s) Supporting Document(s) White Blood Count 3.5-10.5 Normal (applies to non-numeri c results) [facility] Red Blood Count 4.30-5.70 Below low normal [facility] Hemoglobin 13.5-17.5 Below low normal [facility] Hematocrit 38.8-50.0 Below low normal [facility] Mean Corpuscular Volume 81.2-95.1 Normal (applies to non- numeric results) [facility] Mean Corpuscular Hgb 25.6-32.2 Normal (applies to non-num martha results) [facility] Mean Corpuscular Hgb Conc 32.0-36.0 Normal (applies to no n-numeric results) [facility] Red Cell Distribution Width 11.8-15.6 Below low normal [facility] Platelet Count 263 x10 3/uL 150-450 Normal (applies to non-numeric results) [facility] Mean Platelet Volume 9.4-12.4 Below low normal [facility] Neutrophils% (Auto) 31.0-71.0 Normal (applies to non-nume tita results) [facility] Lymphocytes% (Auto) 20.0-55.0 Below low normal [facility] Monocytes% (Auto) 4.0-12.0 Normal (applies to non-numeri c results) [facility] Eosinophils% (Auto) 1.0-8.0 Normal (applies to non-nume tita results) [facility] Basophils% (Auto) 0.0-2.0 Normal (applies to non-numeri c results) [facility] Immature Granulocytes% (Auto) 0.0-2.0 Normal (raquel lies to non-numeric results) [facility] Neutrophils# (Auto) 1.50-6.20 Normal (applies to non-nume tita results) [facility] Lymphocytes# (Auto) 1.20-4.00 Below low normal [facility] Monocytes# (Auto) 0.00-0.90 Normal (applies to non-numeri c results) [facility] Eosinophils# (Auto) 0.00-0.50 Normal (applies to non-nume tita results) [facility] Basophils# (Auto) 0.00-0.20 Normal (applies to non-numeri c results) [facility] Immature Granulocytes# (Auto) 0.00-7.00 No rmal (applies to non-numeric results) [facility] ID Date Data Source [id number] 03/21/2020 10:51:00 AM EDT [facility] Name Value Range Interpretation Code Description Data Keysha rce(s) Supporting Document(s) Sodium 135 mmol/L 136-145 Below low normal [facility] Potassium 3.5-5.1 Normal (applies to non-numeric resul ts) [facility] Chloride 100 mmol/L 98-107 Normal (applies to non-numeric resul ts) [facility] Carbon Dioxide CO2 21-32 Normal (applies to non-numer ic results) [facility] Anion Gap 5.0-16.0 Normal (applies to non-numeric resul ts) [facility] BUN 10 mg/dL 7-18 Normal (applies to non-numeric results) [facility] Creatinine,Serum 0.8-1.5 Normal (applies to non-numeric results) [facility] GFR >60 Normal (applies to non-numeric results) [facility] Glucose Level 233 mg/dL 60-99 Above high normal [facility] Reference range is only applicable when patient is fasting Note the following drug interference: Sulfasalazine Sulfapyridine Can see falsely depressed Can see falsely elevated result with up to 17% results with up to 11% decrease in measurement increase in measurement Recommend patients be collected for this test prior to administration of either drug. Calcium 8.5-10.1 Normal (applies to non-numeric resul ts) [facility] Bilirubin,Total 0.1-1.9 Normal (applies to non-numeric results) [facility] SGOT(AST) 30 U/L 15-37 Normal (applies to non-numeric resul ts) [facility] Note the following drug interference: Sulfasalazine Sulfapyridine Can see falsely depressed Can see falsely elevated result with up to 10% results with up to 10% decrease in measurement increase in measurement Recommend patients be collected for this test prior to administration of either drug. SGPT(ALT) 73 U/L 12-78 Normal (applies to non-numeric resul ts) [facility] Note the following drug interference: Sulfasalazine Sulfapyridine Can see falsely depressed Can see falsely elevated result with up to 29% results with up to 10% decrease in measurement increase in measurement Recommend patients be collected for this test prior to administration of either drug. Alkaline Phosphatase 78 U/L 38-126 Normal (applies to non-num martha results) [facility] can increase Alkaline Phosp le vels up to 2 times the normal adult value. Normal values for children and adolescents are 2 to 3 times the normal adult value. Total Protein 6.0-8.2 Normal (applies to non-numeric re sults) [facility] Albumin Level 3.4-5.0 Normal (applies to non-numeric re sults) [facility] ID Date Data Source [id number] 03/21/2020 10:51:00 AM EDT [facility] Name Value Range Interpretation Code Description Data Keysha rce(s) Supporting Document(s) Thyroid Stimulate Hormone TSH 0.358-3.74 No rmal (applies to non-numeric results) [facility] ID Date Data Source [id number] 03/21/2020 10:51:00 AM T [facility] Name Value Range Interpretation Code Description Data Keysha rce(s) Supporting Document(s) Free T4 (Free Thyroxine) 0.76-1.46 Normal (applies to non -numeric results) [facility] ID Date Data Source [id number] 03/21/2020 10:23:00 AM T [facility] Name Value Range Interpretation Code Description Data Keysha rce(s) Supporting Document(s) White Blood Count 3.5-10.5 Normal (applies to non-numeri c results) [facility] Red Blood Count 4.30-5.70 Normal (applies to non-numeric results) [facility] Hemoglobin 13.5-17.5 Normal (applies to non-numeric resul ts) [facility] Hematocrit 38.8-50.0 Normal (applies to non-numeric resul ts) [facility] Mean Corpuscular Volume 81.2-95.1 Normal (applies to non- numeric results) [facility] Mean Corpuscular Hgb 25.6-32.2 Normal (applies to non-num martha results) [facility] Mean Corpuscular Hgb Conc 32.0-36.0 Normal (applies to no n-numeric results) [facility] Red Cell Distribution Width 11.8-15.6 Below low normal [facility] Platelet Count 285 x10 3/uL 150-450 Normal (applies to non-numeric results) [facility] Mean Platelet Volume 9.4-12.4 Below low normal [facility] Neutrophils% (Auto) 31.0-71.0 Normal (applies to non-nume tita results) [facility] Lymphocytes% (Auto) 20.0-55.0 Normal (applies to non-nume tita results) [facility] Monocytes% (Auto) 4.0-12.0 Normal (applies to non-numeri c results) [facility] Eosinophils% (Auto) 1.0-8.0 Normal (applies to non-nume tita results) [facility] Basophils% (Auto) 0.0-2.0 Normal (applies to non-numeri c results) [facility] Immature Granulocytes% (Auto) 0.0-2.0 Normal (raquel lies to non-numeric results) [facility] Neutrophils# (Auto) 1.50-6.20 Normal (applies to non-nume tita results) [facility] Lymphocytes# (Auto) 1.20-4.00 Above high normal [facility] Monocytes# (Auto) 0.00-0.90 Normal (applies to non-numeri c results) [facility] Eosinophils# (Auto) 0.00-0.50 Above high normal [facility] Basophils# (Auto) 0.00-0.20 Normal (applies to non-numeri c results) [facility] Immature Granulocytes# (Auto) 0.00-7.00 No rmal (applies to non-numeric results) [facility] ID Date Data Source [id number] 02/22/2020 11:13:00 AM EDT [facility] Name Value Range Interpretation Code Description Data Keysha rce(s) Supporting Document(s) Sodium 139 mmol/L 136-145 Normal (applies to non-numeric resul ts) [facility] Potassium 3.5-5.1 Normal (applies to non-numeric resul ts) [facility] Chloride 101 mmol/L 98-107 Normal (applies to non-numeric resul ts) [facility] Carbon Dioxide CO2 21-32 Normal (applies to non-numer ic results) [facility] Anion Gap 5.0-16.0 Normal (applies to non-numeric resul ts) [facility] BUN 12 mg/dL 7-18 Normal (applies to non-numeric results) [facility] Creatinine,Serum 0.8-1.5 Normal (applies to non-numeric results) [facility] GFR >60 Normal (applies to non-numeric results) [facility] Glucose Level 227 mg/dL 60-99 Above high normal [facility] Reference range is only applicable when patient is fasting Note the following drug interference: Sulfasalazine Sulfapyridine Can see falsely depressed Can see falsely elevated result with up to 17% results with up to 11% decrease in measurement increase in measurement Recommend patients be collected for this test prior to administration of either drug. Calcium 8.5-10.1 Normal (applies to non-numeric resul ts) [facility] Bilirubin,Total 0.1-1.9 Normal (applies to non-numeric results) [facility] SGOT(AST) 23 U/L 15-37 Normal (applies to non-numeric resul ts) [facility] Note the following drug interference: Sulfasalazine Sulfapyridine Can see falsely depressed Can see falsely elevated result with up to 10% results with up to 10% decrease in measurement increase in measurement Recommend patients be collected for this test prior to administration of either drug. SGPT(ALT) 88 U/L 12-78 Above high normal [facility] Note the following drug interference: Sulfasalazine Sulfapyridine Can see falsely depressed Can see falsely elevated result with up to 29% results with up to 10% decrease in measurement increase in measurement Recommend patients be collected for this test prior to administration of either drug. Alkaline Phosphatase 67 U/L 38-126 Normal (applies to non-num martha results) [facility] can increase Alkaline Phosp le vels up to 2 times the normal adult value. Normal values for children and adolescents are 2 to 3 times the normal adult value. Total Protein 6.0-8.2 Normal (applies to non-numeric re sults) [facility] Albumin Level 3.4-5.0 Normal (applies to non-numeric re sults) [facility] ID Date Data Source [id number] 02/22/2020 11:13:00 AM T [facility] Name Value Range Interpretation Code Description Data Keysha rce(s) Supporting Document(s) Thyroid Stimulate Hormone TSH 0.358-3.74 No rmal (applies to non-numeric results) [facility] ID Date Data Source [id number] 02/22/2020 11:13:00 AM T [facility] Name Value Range Interpretation Code Description Data Keysha rce(s) Supporting Document(s) Free T4 (Free Thyroxine) 0.76-1.46 Normal (applies to non -numeric results) [facility] ID Date Data Source [id number] 02/22/2020 10:17:[address] [facility] Name Value Range Interpretation Code Description Data Keysha rce(s) Supporting Document(s) White Blood Count 3.5-10.5 Normal (applies to non-numeri c results) [facility] Red Blood Count 4.30-5.70 Below low normal [facility] Hemoglobin 13.5-17.5 Below low normal [facility] Hematocrit 38.8-50.0 Normal (applies to non-numeric resul ts) [facility] Mean Corpuscular Volume 81.2-95.1 Normal (applies to non- numeric results) [facility] Mean Corpuscular Hgb 25.6-32.2 Normal (applies to non-num martha results) [facility] Mean Corpuscular Hgb Conc 32.0-36.0 Normal (applies to no n-numeric results) [facility] Red Cell Distribution Width 11.8-15.6 Normal (appli es to non-numeric results) [facility] Platelet Count 237 x10 3/uL 150-450 Normal (applies to non-numeric results) [facility] Mean Platelet Volume 9.4-12.4 Below low normal [facility] Neutrophils% (Auto) 31.0-71.0 Normal (applies to non-nume tita results) [facility] Lymphocytes% (Auto) 20.0-55.0 Normal (applies to non-nume tita results) [facility] Monocytes% (Auto) 4.0-12.0 Normal (applies to non-numeri c results) [facility] Eosinophils% (Auto) 1.0-8.0 Normal (applies to non-nume tita results) [facility] Basophils% (Auto) 0.0-2.0 Normal (applies to non-numeri c results) [facility] Immature Granulocytes% (Auto) 0.0-2.0 Normal (raquel lies to non-numeric results) [facility] Neutrophils# (Auto) 1.50-6.20 Normal (applies to non-nume tita results) [facility] Lymphocytes# (Auto) 1.20-4.00 Normal (applies to non-nume tita results) [facility] Monocytes# (Auto) 0.00-0.90 Normal (applies to non-numeri c results) [facility] Eosinophils# (Auto) 0.00-0.50 Normal (applies to non-nume tita results) [facility] Basophils# (Auto) 0.00-0.20 Normal (applies to non-numeri c results) [facility] Immature Granulocytes# (Auto) 0.00-7.00 No rmal (applies to non-numeric results) [facility] ID Date Data Source [id number] 02/01/2020 09:18:[address] [facility] Name Value Range Interpretation Code Description Data Keysha rce(s) Supporting Document(s) CEA result 0.2-5.0 Normal (applies to non-numeric resul ts) [facility] % Distribution of CEA 0 - 2.5 in 98.2% of nonsmokers and 87.3% of smokers 2.6 - 5.0 in 1.8% of non-smokers and 8.0% of smokers Serum CEA concentrations should not be interpreted as absolute evidence for the presence or absence of malignant disease. Assayed utilizing the Siem[employer] ADVIA Centaur chemiluminometric technology. Values obtained by using different assay methods cannot be used interchangeably. ID Date Data Source [id number] [facility] Interpretation Code Description Data Keysha rce(s) Supporting Document(s) CEA 0.2-5.0 Normal (applies to non-numeric results) [facility] % Distribution of CEA 0 - 2.5 in 98.2% of nonsmokers and 87.3% of smokers 2.6 - 5.0 in 1.8% of non-smokers and 8.0% of smokers Serum CEA concentrations should not be interpreted as absolute evidence for the presence or absence of malignant disease. Assayed utilizing the Siem[employer] Centaur chemiluminometric technology. Values obtained by using different assay methods cannot be used interchangeably. ID Date Data Source [id number] 02/01/2020 10:55:[address] [facility] Name Value Range Interpretation Code Description Data Keysha rce(s) Supporting Document(s) Sodium 138 mmol/L 136-145 Normal (applies to non-numeric resul ts) [facility] Potassium 3.5-5.1 Normal (applies to non-numeric resul ts) [facility] Chloride 102 mmol/L 98-107 Normal (applies to non-numeric resul ts) [facility] Carbon Dioxide CO2 21-32 Normal (applies to non-numer ic results) [facility] Anion Gap 5.0-16.0 Normal (applies to non-numeric resul ts) [facility] BUN 9 mg/dL 7-18 Normal (applies to non-numeric results) [facility] Creatinine,Serum 0.8-1.5 Normal (applies to non-numeric results) [facility] GFR >60 Normal (applies to non-numeric results) [facility] Glucose Level 159 mg/dL 60-99 Above high normal [facility] Reference range is only applicable when patient is fasting Note the following drug interference: Sulfasalazine Sulfapyridine Can see falsely depressed Can see falsely elevated result with up to 17% results with up to 11% decrease in measurement increase in measurement Recommend patients be collected for this test prior to administration of either drug. Calcium 8.5-10.1 Normal (applies to non-numeric resul ts) [facility] Bilirubin,Total 0.1-1.9 Normal (applies to non-numeric results) [facility] SGOT(AST) 21 U/L 15-37 Normal (applies to non-numeric resul ts) [facility] Note the following drug interference: Sulfasalazine Sulfapyridine Can see falsely depressed Can see falsely elevated result with up to 10% results with up to 10% decrease in measurement increase in measurement Recommend patients be collected for this test prior to administration of either drug. SGPT(ALT) 67 U/L 12-78 Normal (applies to non-numeric resul ts) [facility] Note the following drug interference: Sulfasalazine Sulfapyridine Can see falsely depressed Can see falsely elevated result with up to 29% results with up to 10% decrease in measurement increase in measurement Recommend patients be collected for this test prior to administration of either drug. Alkaline Phosphatase 68 U/L 38-126 Normal (applies to non-num martha results) [facility] can increase Alkaline Phosp le vels up to 2 times the normal adult value. Normal values for children and adolescents are 2 to 3 times the normal adult value. Total Protein 6.0-8.2 Normal (applies to non-numeric re sults) [facility] Albumin Level 3.4-5.0 Normal (applies to non-numeric re sults) [facility] ID Date Data Source [id number] 02/01/2020 10:55:00 AM EDT [facility] Name Value Range Interpretation Code Description Data Keysha rce(s) Supporting Document(s) Thyroid Stimulate Hormone TSH 0.358-3.74 No rmal (applies to non-numeric results) [facility] ID Date Data Source [id number] 02/01/2020 10:55:00 AM EDT [facility] Name Value Range Interpretation Code Description Data Keysha rce(s) Supporting Document(s) Free T4 (Free Thyroxine) 0.76-1.46 Normal (applies to non -numeric results) [facility] ID Date Data Source [id number] 02/01/2020 10:13:00 AM EDT [facility] Name Value Range Interpretation Code Description Data Keysha rce(s) Supporting Document(s) White Blood Count 3.5-10.5 Normal (applies to non-numeri c results) [facility] Red Blood Count 4.30-5.70 Below low normal [facility] Hemoglobin 13.5-17.5 Below low normal [facility] Hematocrit 38.8-50.0 Below low [facility] Mean Corpuscular Volume 81.2-95.1 Above high normal [facility] Mean Corpuscular Hgb 25.6-32.2 Normal (applies to non-num martha results) [facility] Mean Corpuscular Hgb Conc 32.0-36.0 Normal (applies to no n-numeric results) [facility] Red Cell Distribution Width 11.8-15.6 Normal (appli es to non-numeric results) [facility] Platelet Count 224 x10 3/uL 150-450 Normal (applies to non-numeric results) [facility] Mean Platelet Volume 9.4-12.4 Below low normal [facility] Neutrophils% (Auto) 31.0-71.0 Normal (applies to non-nume tita results) [facility] Lymphocytes% (Auto) 20.0-55.0 Normal (applies to non-nume tita results) [facility] Monocytes% (Auto) 4.0-12.0 Normal (applies to non-numeri c results) [facility] Eosinophils% (Auto) 1.0-8.0 Normal (applies to non-nume tita results) [facility] Basophils% (Auto) 0.0-2.0 Normal (applies to non-numeri c results) [facility] Immature Granulocytes% (Auto) 0.0-2.0 Normal (raquel lies to non-numeric results) [facility] Neutrophils# (Auto) 1.50-6.20 Normal (applies to non-nume tita results) [facility] Lymphocytes# (Auto) 1.20-4.00 Normal (applies to non-nume tita results) [facility] Monocytes# (Auto) 0.00-0.90 Normal (applies to non-numeri c results) [facility] Eosinophils# (Auto) 0.00-0.50 Normal (applies to non-nume tita results) [facility] Basophils# (Auto) 0.00-0.20 Normal (applies to non-numeri c results) [facility] Immature Granulocytes# (Auto) 0.00-7.00 No rmal (applies to non-numeric results) [facility] ID Date Data Source [id number] 01/12/2020 08:24:00 AM EDT [facility] Name Value Range Interpretation Code Description Data Keysha rce(s) Supporting Document(s) Free T4 (Free Thyroxine) 0.76-1.46 Normal (applies to non -numeric results) [facility] ID Date Data Source [id number] 01/12/2020 07:34:00 AM EDT [facility] Name Value Range Interpretation Code Description Data Keysha rce(s) Supporting Document(s) Sodium 140 mmol/L 136-145 Normal (applies to non-numeric resul ts) [facility] Potassium 3.5-5.1 Normal (applies to non-numeric resul ts) [facility] Chloride 102 mmol/L 98-107 Normal (applies to non-numeric resul ts) [facility] Carbon Dioxide CO2 21-32 Normal (applies to non-numer ic results) [facility] Anion Gap 5.0-16.0 Normal (applies to non-numeric resul ts) [facility] BUN 10 mg/dL 7-18 Normal (applies to non-numeric results) [facility] Creatinine,Serum 0.8-1.5 Normal (applies to non-numeric results) [facility] GFR >60 Normal (applies to non-numeric results) [facility] Glucose Level 154 mg/dL 60-99 Above high normal [facility] Reference range is only applicable when patient is fasting Note the following drug interference: Sulfasalazine Sulfapyridine Can see falsely depressed Can see falsely elevated result with up to 17% results with up to 11% decrease in measurement increase in measurement Recommend patients be collected for this test prior to administration of either drug. Calcium 8.5-10.1 Normal (applies to non-numeric resul ts) [facility] Bilirubin,Total 0.1-1.9 Normal (applies to non-numeric results) [facility] SGOT(AST) 18 U/L 15-37 Normal (applies to non-numeric resul ts) [facility] Note the following drug interference: Sulfasalazine Sulfapyridine Can see falsely depressed Can see falsely elevated result with up to 10% results with up to 10% decrease in measurement increase in measurement Recommend patients be collected for this test prior to administration of either drug. SGPT(ALT) 49 U/L 12-78 Normal (applies to non-numeric resul ts) [facility] Note the following drug interference: Sulfasalazine Sulfapyridine Can see falsely depressed Can see falsely elevated result with up to 29% results with up to 10% decrease in measurement increase in measurement Recommend patients be collected for this test prior to administration of either drug. Alkaline Phosphatase 72 U/L 38-126 Normal (applies to non-num martha results) [facility] can increase Alkaline Phosp le vels up to 2 times the normal adult value. Normal values for children and adolescents are 2 to 3 times the normal adult value. Total Protein 6.0-8.2 Normal (applies to non-numeric re sults) [facility] Albumin Level 3.4-5.0 Normal (applies to non-numeric re sults) [facility] ID Date Data Source [id number] 01/12/2020 07:34:[address] [facility] Name Value Range Interpretation Code Description Data Keysha rce(s) Supporting Document(s) Thyroid Stimulate Hormone TSH 0.358-3.74 No rmal (applies to non-numeric results) [facility] ID Date Data Source [id number] 01/11/2020 02:26:[address] [facility] Name Value Range Interpretation Code Description Data Keysha rce(s) Supporting Document(s) CEA result 0.2-5.0 Normal (applies to non-numeric resul ts) [facility] % Distribution of CEA 0 - 2.5 in 98.2% of nonsmokers and 87.3% of smokers 2.6 - 5.0 in 1.8% of non-smokers and 8.0% of smokers Serum CEA concentrations should not be interpreted as absolute evidence for the presence or absence of malignant disease. Assayed utilizing the Siem[employer] ADVIA Centaur chemiluminometric technology. Values obtained by using different assay methods cannot be used interchangeably. ID Date Data Source [id number] 01/11/2020 01:55:00 PM [facility] Name Value Range Interpretation Code Description Data Keysha rce(s) Supporting Document(s) CEA 0.2-5.0 Normal (applies to non-numeric results) [facility] % Distribution of CEA 0 - 2.5 in 98.2% of nonsmokers and 87.3% of smokers 2.6 - 5.0 in 1.8% of non-smokers and 8.0% of smokers Serum CEA concentrations should not be interpreted as absolute evidence for the presence or absence of malignant disease. Assayed utilizing the Siem[employer] ADV[employer] Centaur chemiluminometric technology. Values obtained by using different assay methods cannot be used interchangeably. ID Date Data Source [id number] 01/11/2020 09:49:[address] [facility] Name Value Range Interpretation Code Description Data Keysha rce(s) Supporting Document(s) White Blood Count 3.5-10.5 Normal (applies to non-numeri c results) [facility] Red Blood Count 4.30-5.70 Below low normal [facility] Hemoglobin 13.5-17.5 Below low normal [facility] Hematocrit 38.8-50.0 Below low normal [facility] Mean Corpuscular Volume 81.2-95.1 Normal (applies to non- numeric results) [facility] Mean Corpuscular Hgb 25.6-32.2 Normal (applies to non-num martha results) [facility] Mean Corpuscular Hgb Conc 32.0-36.0 Normal (applies to no n-numeric results) [facility] Red Cell Distribution Width 11.8-15.6 Normal (appli es to non-numeric results) [facility] Platelet Count 212 x10 3/uL 150-450 Normal (applies to non-numeric results) [facility] Mean Platelet Volume 9.4-12.4 Below low normal [facility] Neutrophils% (Auto) 31.0-71.0 Normal (applies to non-nume tita results) [facility] Lymphocytes% (Auto) 20.0-55.0 Normal (applies to non-nume tita results) [facility] Monocytes% (Auto) 4.0-12.0 Normal (applies to non-numeri c results) [facility] Eosinophils% (Auto) 1.0-8.0 Normal (applies to non-nume tita results) [facility] Basophils% (Auto) 0.0-2.0 Normal (applies to non-numeri c results) [facility] Immature Granulocytes% (Auto) 0.0-2.0 Normal (raquel lies to non-numeric results) [facility] Neutrophils# (Auto) 1.50-6.20 Normal (applies to non-nume tita results) [facility] Lymphocytes# (Auto) 1.20-4.00 Normal (applies to non-nume tita results) [facility] Monocytes# (Auto) 0.00-0.90 Normal (applies to non-numeri c results) [facility] Eosinophils# (Auto) 0.00-0.50 Normal (applies to non-nume tita results) [facility] Basophils# (Auto) 0.00-0.20 Normal (applies to non-numeri c results) [facility] Immature Granulocytes# (Auto) 0.00-7.00 No rmal (applies to non-numeric results) [facility] ID Date Data Source [id number] 12/21/2019 03:05:00 PM [facility] Name Value Range Interpretation Code Description Data Keysha rce(s) Supporting Document(s) CEA result 0.2-5.0 Normal (applies to non-numeric resul ts) [facility] % Distribution of CEA 0 - 2.5 in 98.2% of nonsmokers and 87.3% of smokers 2.6 - 5.0 in 1.8% of non-smokers and 8.0% of smokers Serum CEA concentrations should not be interpreted as absolute evidence for the presence or absence of malignant disease. Assayed utilizing the Siem[email or web address] chemiluminometric technology. Values obtained by using different assay methods cannot be used interchangeably. ID Date Data Source [id number] 12/21/2019 02:19:00 PM [facility] Name Value Range Interpretation Code Description Data Keysha rce(s) Supporting Document(s) CEA 0.2-5.0 Normal (applies to non-numeric results) [facility] % Distribution of CEA 0 - 2.5 in 98.2% of nonsmokers and 87.3% of smokers 2.6 - 5.0 in 1.8% of non-smokers and 8.0% of smokers Serum CEA concentrations should not be interpreted as absolute evidence for the presence or absence of malignant disease. Assayed utilizing the Siem[employer]VIA Centaur chemiluminometric technology. Values obtained by using different assay methods cannot be used interchangeably. ID Date Data Source [id number] 12/21/2019 09:51:00 AM [facility] Name Value Range Interpretation Code Description Data Keysha rce(s) Supporting Document(s) Sodium 140 mmol/L 136-145 Normal (applies to non-numeric resul ts) [facility] Potassium 3.5-5.1 Normal (applies to non-numeric resul ts) [facility] Chloride 104 mmol/L 98-107 Normal (applies to non-numeric resul ts) [facility] Carbon Dioxide CO2 21-32 Normal (applies to non-numer ic results) [facility] Anion Gap 5.0-16.0 Normal (applies to non-numeric resul ts) [facility] BUN 7 mg/dL 7-18 Normal (applies to non-numeric results) [facility] Creatinine,Serum 0.8-1.5 Normal (applies to non-numeric results) [facility] GFR >60 Normal (applies to non-numeric results) [facility] Glucose Level 143 mg/dL 60-99 Above high normal [facility] Reference range is only applicable when patient is fasting Note the following drug interference: Sulfasalazine Sulfapyridine Can see falsely depressed Can see falsely elevated result with up to 17% results with up to 11% decrease in measurement increase in measurement Recommend patients be collected for this test prior to administration of either drug. Calcium 8.5-10.1 Normal (applies to non-numeric resul ts) [facility] Bilirubin,Total 0.1-1.9 Normal (applies to non-numeric results) [facility] SGOT(AST) 27 U/L 15-37 Normal (applies to non-numeric resul ts) [facility] Note the following drug interference: Sulfasalazine Sulfapyridine Can see falsely depressed Can see falsely elevated result with up to 10% results with up to 10% decrease in measurement increase in measurement Recommend patients be collected for this test prior to administration of either drug. SGPT(ALT) 76 U/L 12-78 Normal (applies to non-numeric resul ts) [facility] Note the following drug interference: Sulfasalazine Sulfapyridine Can see falsely depressed Can see falsely elevated result with up to 29% results with up to 10% decrease in measurement increase in measurement Recommend patients be collected for this test prior to administration of either drug. Alkaline Phosphatase 71 U/L 38-126 Normal (applies to non-num martha results) [facility] can increase Alkaline Phosp le vels up to 2 times the normal adult value. Normal values for children and adolescents are 2 to 3 times the normal adult value. Total Protein 6.0-8.2 Normal (applies to non-numeric re sults) [facility] Albumin Level 3.4-5.0 Normal (applies to non-numeric re sults) [facility] ID Date Data Source [id number] 12/21/2019 09:51:00 AM EST [facility] Name Value Range Interpretation Code Description Data Keysha rce(s) Supporting Document(s) Free T4 (Free Thyroxine) 0.76-1.46 Normal (applies to non -numeric results) [facility] ID Date Data Source [id number] 12/21/2019 09:21:00 AM EST [facility] Name Value Range Interpretation Code Description Data Keysha rce(s) Supporting Document(s) White Blood Count 3.5-10.5 Normal (applies to non-numeri c results) [facility] Red Blood Count 4.30-5.70 Below low normal [facility] Hemoglobin 13.5-17.5 Below low normal [facility] Hematocrit 38.8-50.0 Below low normal [facility] Mean Corpuscular Volume 81.2-95.1 Normal (applies to non- numeric results) [facility] Mean Corpuscular Hgb 25.6-32.2 Normal (applies to non-num martha results) [facility] Mean Corpuscular Hgb Conc 32.0-36.0 Normal (applies to no n-numeric results) [facility] Red Cell Distribution Width 11.8-15.6 Normal (appli es to non-numeric results) [facility] Platelet Count 267 x10 3/uL 150-450 Normal (applies to non-numeric results) [facility] Mean Platelet Volume 9.4-12.4 Below low normal [facility] Neutrophils% (Auto) 31.0-71.0 Normal (applies to non-nume tita results) [facility] Lymphocytes% (Auto) 20.0-55.0 Normal (applies to non-nume tita results) [facility] Monocytes% (Auto) 4.0-12.0 Above high normal [facility] [facility] Eosinophils% (Auto) 1.0-8.0 Normal (applies to non-nume tita results) [facility] Basophils% (Auto) 0.0-2.0 Normal (applies to non-numeri c results) [facility] Immature Granulocytes% (Auto) 0.0-2.0 Normal (raquel lies to non-numeric results) [facility] Neutrophils# (Auto) 1.50-6.20 Normal (applies to non-nume tita results) [facility] Lymphocytes# (Auto) 1.20-4.00 Normal (applies to non-nume tita results) [facility] Monocytes# (Auto) 0.00-0.90 Above high normal [facility] Eosinophils# (Auto) 0.00-0.50 Normal (applies to non-nume tita results) [facility] Basophils# (Auto) 0.00-0.20 Normal (applies to non-numeri c results) [facility] Immature Granulocytes# (Auto) 0.00-7.00 No rmal (applies to non-numeric results) [facility] ID Date Data Source [id number] 11/30/2019 10:59:00 AM EST [facility] Name Value Range Interpretation Code Description Data Keysha rce(s) Supporting Document(s) Sodium 141 mmol/L 136-145 Normal (applies to non-numeric resul ts) [facility] Potassium 3.5-5.1 Normal (applies to non-numeric resul ts) [facility] Chloride 103 mmol/L 98-107 Normal (applies to non-numeric resul ts) [facility] Carbon Dioxide CO2 21-32 Normal (applies to non-numer ic results) [facility] Anion Gap 5.0-16.0 Normal (applies to non-numeric resul ts) [facility] BUN 7 mg/dL 7-18 Normal (applies to non-numeric results) [facility] Creatinine,Serum 0.8-1.5 Normal (applies to non-numeric results) [facility] GFR >60 Normal (applies to non-numeric results) [facility] Glucose Level 145 mg/dL 60-99 Above high normal [facility] Reference range is only applicable when patient is fasting Note the following drug interference: Sulfasalazine Sulfapyridine Can see falsely depressed Can see falsely elevated result with up to 17% results with up to 11% decrease in measurement increase in measurement Recommend patients be collected for this test prior to administration of either drug. Calcium 8.5-10.1 Normal (applies to non-numeric resul ts) [facility] Bilirubin,Total 0.1-1.9 Normal (applies to non-numeric results) [facility] SGOT(AST) 23 U/L 15-37 Normal (applies to non-numeric resul ts) [facility] Note the following drug interference: Sulfasalazine Sulfapyridine Can see falsely depressed Can see falsely elevated result with up to 10% results with up to 10% decrease in measurement increase in measurement Recommend patients be collected for this test prior to administration of either drug. SGPT(ALT) 84 U/L 12-78 Above high normal [facility] ospital Note the following drug interference: Sulfasalazine Sulfapyridine Can see falsely depressed Can see falsely elevated result with up to 29% results with up to 10% decrease in measurement increase in measurement Recommend patients be collected for this test prior to administration of either drug. Alkaline Phosphatase 78 U/L 38-126 Normal (applies to non-num martha results) [facility] can increase Alkaline Phosp le vels up to 2 times the normal adult value. Normal values for children and adolescents are 2 to 3 times the normal adult value. Total Protein 6.0-8.2 Normal (applies to non-numeric re sults) [facility] Albumin Level 3.4-5.0 Normal (applies to non-numeric re sults) [facility] ID Date Data Source [id number] 11/30/2019 10:59:00 AM EST [facility] Name Value Range Interpretation Code Description Data Keysha rce(s) Supporting Document(s) Thyroid Stimulate Hormone TSH 0.358-3.74 No rmal (applies to non-numeric results) [facility] ID Date Data Source [id number] 11/30/2019 10:59:00 AM EST [facility] Name Value Range Interpretation Code Description Data Keysha rce(s) Supporting Document(s) Free T4 (Free Thyroxine) 0.76-1.46 Normal (applies to non -numeric results) [facility] ID Date Data Source [id number] 11/30/2019 09:55:00 AM EST [facility] Name Value Range Interpretation Code Description Data Keysha rce(s) Supporting Document(s) White Blood Count 3.5-10.5 Normal (applies to non-numeri c results) [facility] Red Blood Count 4.30-5.70 Normal (applies to non-numeric results) [facility] Hemoglobin 13.5-17.5 Below low normal [facility] ospital Hematocrit 38.8-50.0 Normal (applies to non-numeric resul ts) [facility] Mean Corpuscular Volume 81.2-95.1 Normal (applies to non- numeric results) [facility] Mean Corpuscular Hgb 25.6-32.2 Normal (applies to non-num martha results) [facility] Mean Corpuscular Hgb Conc 32.0-36.0 Normal (applies to no n-numeric results) [facility] Red Cell Distribution Width 11.8-15.6 Normal (appli es to non-numeric results) [facility] Platelet Count 341 x10 3/uL 150-450 Normal (applies to non-numeric results) [facility] Mean Platelet Volume 9.4-12.4 Below low normal [facility] Neutrophils% (Auto) 31.0-71.0 Normal (applies to non-nume tita results) [facility] Lymphocytes% (Auto) 20.0-55.0 Normal (applies to non-nume tita results) [facility] Monocytes% (Auto) 4.0-12.0 Above high normal [facility] Eosinophils% (Auto) 1.0-8.0 Normal (applies to non-nume tita results) [facility] Basophils% (Auto) 0.0-2.0 Normal (applies to non-numeri c results) [facility] Immature Granulocytes% (Auto) 0.0-2.0 Normal (raquel lies to non-numeric results) [facility] Neutrophils# (Auto) 1.50-6.20 Normal (applies to non-nume tita results) [facility] Lymphocytes# (Auto) 1.20-4.00 Above high normal [facility] Monocytes# (Auto) 0.00-0.90 Above high normal [facility] Eosinophils# (Auto) 0.00-0.50 Normal (applies to non-nume tita results) [facility] Basophils# (Auto) 0.00-0.20 Normal (applies to non-numeri c results) [facility] Immature Granulocytes# (Auto) 0.00-7.00 No rmal (applies to non-numeric results) [facility] ID Date Data Source [id number] 11/13/2019 02:43:[address] [facility] spital Pending Campylobacter: Not detected C.difficile Toxin A/B: Not detected Plesiomonas shigelloides: Not detected Salmonella: Not detected Vibrio cholera: Not detected Vibrio: Not detected Yersinia enterocolitica: Not detected Pending Cryptosporidium: Not detected Cyclospora cayetanensis: Not detected Entamoeba histolytica: Not detected Giardia lamblia: Not detected Results called 11/13/19 1431,CHANTELLE DEMARCO read back information to JOANN Pending E.coli O157: Not detected Enteroaggregative E.coli: Not detected Shigella/EIEC: Not Detected Enteropathogenic E.coli: Not detected Enterotoxigenic E.coli: Not detected Shiga toxin 1/2: Not detected AJ B read back information 11/13/19 1442 RINA Methodology: Multiplexed PCR Reference Range: None detected Adenovirus F 40/41: Not detected Astrovirus: Detected Norovirus GI/GII: Not detected Rotavirus A: Not detected Sapovirus: Not detected Name Value Range Interpretation Code Description Data Keysha rce(s) Supporting Document(s) ID Date Data Source [id number] 11/12/2019 05:40:00 PM [facility] Collected By: Nurse Initials: pc Time Collected: 1732 Name Value Range Interpretation Code Description Data Keysha rce(s) Supporting Document(s) Color,Urine Colorl-Dk Y Normal (applies to non-numeric res ults) [facility] Clarity,Urine Clear Normal (applies to non-numeric re sults) [facility] Specific [place],Urine 1.015-1.025 Normal (applies to non- numeric results) [facility] pH,Urine 5.0-7.0 Normal (applies to non-numeric resul ts) [facility] Protein,Urine Negative Normal (applies to non-numeric re sults) [facility] Gl[facility],Urine [facility] Ketones,Urine Negative Normal (applies to non-numeric re sults) [facility] Blood,Urine Negative Normal (applies to non-numeric resu lts) [facility] Bilirubin,Urine Negative Normal (applies to non-numeric results) [facility] Urobilinogen,Urine Normal Normal (applies to non-numer ic results) [facility] Leukocyte Esterase,Urine Negative Normal (applies to non -numeric results) [facility] Nitrite,Urine Negative Normal (applies to non-numeric re sults) [facility] ID Date Data Source [id number] 11/18/2019 01:21:00 AM EST [facility] NO GROWTH AFTER 120 HOURS (5 Days) Proc edure Performed By: [facility] [address] [place] [address] Director: Gino Davila Name Value Range Interpretation Code Description Data Keysha rce(s) Supporting Document(s) ID Date Data Source [id number] 11/17/2019 08:43:00 PM EST [facility] NO GROWTH AFTER 120 HOURS (5 Days) Pr ocedure Performed By: [facility] [address] [place] [address] Director: Gino Davila Name Value Range Interpretation Code Description Data Keysha rce(s) Supporting Document(s) ID Date Data Source [id number] 11/18/2019 01:21:00 AM EST [facility] NO GROWTH AFTER 120 HOURS (5 Days) Proc edure Performed By: [facility] [address] [place] [address] Director: Gino Davila Name Value Range Interpretation Code Description Data Keysha rce(s) Supporting Document(s) ID Date Data Source [id number] 11/17/2019 08:43:00 PM [facility] NO GROWTH AFTER 120 HOURS (5 Days) Pr ocedure Performed By: [facility] [address] [place] [address] Director: Gino Davila Name Value Range Interpretation Code Description Data Keysha rce(s) Supporting Document(s) ID Date Data Source [id number] 11/12/2019 05:25:00 PM [facility] Name Value Range Interpretation Code Description Data Keysha rce(s) Supporting Document(s) PT 9.2-11.7 Normal (applies to non-numeric results) [facility] INR Normal (applies to non-numeric results) [facility] The use of INR is restricted to patients on stable oral anticoagulant. Therapeutic Range: 2.0 - 3.0 High Risk Range: 2.5 - 3.5 ID Date Data Source [id number] 11/12/2019 05:25:00 PM [facility] Name Value Range Interpretation Code Description Data Keysha rce(s) Supporting Document(s) PTT 23.8-37.9 Normal (applies to non-numeric results) [facility] ID Date Data Source [id number] 11/12/2019 05:15:00 PM [facility] Name Value Range Interpretation Code Description Data Keysha rce(s) Supporting Document(s) Lactic Acid 0.4-2.0 Normal (applies to non-numeric resu lts) [facility] ID Date Data Source [id number] 11/12/2019 04:59:00 PM [facility] Name Value Range Interpretation Code Description Data Keysha rce(s) Supporting Document(s) Sodium 135 mmol/L 136-145 Below low normal [facility]ital Potassium 3.5-5.1 Normal (applies to non-numeric resul ts) [facility] Chloride 100 mmol/L 98-107 Normal (applies to non-numeric resul ts) [facility] Carbon Dioxide CO2 21-32 Normal (applies to non-numer ic results) [facility] Anion Gap 5.0-16.0 Normal (applies to non-numeric resul ts) [facility] BUN 14 mg/dL 7-18 Normal (applies to non-numeric results) [facility] Creatinine,Serum 0.8-1.5 Normal (applies to non-numeric results) [facility] GFR >60 Normal (applies to non-numeric results) [facility] Glucose Level 163 mg/dL 60-99 Above high normal [facility] Reference range is only applicable when patient is fasting Note the following drug interference: Sulfasalazine Sulfapyridine Can see falsely depressed Can see falsely elevated result with up to 17% results with up to 11% decrease in measurement increase in measurement Recommend patients be collected for this test prior to administration of either drug. Calcium 8.5-10.1 Below low normal [facility] Bilirubin,Total 0.1-1.9 Normal (applies to non-numeric results) [facility] SGOT(AST) 39 U/L 15-37 Above high normal [facility] ospital Note the following drug interference: Sulfasalazine Sulfapyridine Can see falsely depressed Can see falsely elevated result with up to 10% results with up to 10% decrease in measurement increase in measurement Recommend patients be collected for this test prior to administration of either drug. SGPT(ALT) 113 U/L 12-78 Above high normal [facility] ospital Note the following drug interference: Sulfasalazine Sulfapyridine Can see falsely depressed Can see falsely elevated result with up to 29% results with up to 10% decrease in measurement increase in measurement Recommend patients be collected for this test prior to administration of either drug. Alkaline Phosphatase 61 U/L 38-126 Normal (applies to non-num martha results) [facility] can increase Alkaline Phosp le vels up to 2 times the normal adult value. Normal values for children and adolescents are 2 to 3 times the normal adult value. Total Protein 6.0-8.2 Normal (applies to non-numeric re sults) [facility] Albumin Level 3.4-5.0 Normal (applies to non-numeric re sults) [facility] ID Date Data Source [id number] 11/12/2019 05:00:00 PM [facility] Name Value Range Interpretation Code Description Data Keysha rce(s) Supporting Document(s) Troponin I 0.000-0.056 Normal (applies to non-numeric resu lts) [facility] ID Date Data Source [id number] 11/12/2019 05:00:00 PM [facility] Name Value Range Interpretation Code Description Data Keysha rce(s) Supporting Document(s) Amylase 60 U/L 25-115 Normal (applies to non-numeric resul ts) [facility] ID Date Data Source [id number] 11/12/2019 05:00:00 PM [facility] Name Value Range Interpretation Code Description Data Keysha rce(s) Supporting Document(s) Lipase 140 U/L 73-393 Normal (applies to non-numeric resul ts) [facility] ID Date Data Source [id number] 11/12/2019 04:54:00 PM [facility] Name Value Range Interpretation Code Description Data Keysha rce(s) Supporting Document(s) White Blood Count 3.5-10.5 Normal (applies to non-numeri c results) [facility] Red Blood Count 4.30-5.70 Normal (applies to non-numeric results) [facility] Hemoglobin 13.5-17.5 Below low normal [facility] o[facility]ital Hematocrit 38.8-50.0 Normal (applies to non-numeric resul ts) [facility] Mean Corpuscular Volume 81.2-95.1 Normal (applies to non- numeric results) [facility] Mean Corpuscular Hgb 25.6-32.2 Normal (applies to non-num martha results) [facility] Mean Corpuscular Hgb Conc 32.0-36.0 Normal (applies to no n-numeric results) [facility] Red Cell Distribution Width 11.8-15.6 Normal (appli es to non-numeric results) [facility] Platelet Count 122 x10 3/uL 150-450 Below low normal [facility] Slide has been reviewed and findings con firmed by a technologist/burner technician. Mean Platelet Volume 9.4-12.4 Below low normal [facility] Neutrophils% (Auto) 31.0-71.0 Normal (applies to non-nume tita results) [facility] Lymphocytes% (Auto) 20.0-55.0 Normal (applies to non-nume tita results) [facility] Monocytes% (Auto) 4.0-12.0 Normal (applies to non-numeri c results) [facility] Eosinophils% (Auto) 1.0-8.0 Below low normal [facility] Basophils% (Auto) 0.0-2.0 Normal (applies to non-numeri c results) [facility] Immature Granulocytes% (Auto) 0.0-2.0 Normal (raquel lies to non-numeric results) [facility] Neutrophils# (Auto) 1.50-6.20 Normal (applies to non-nume tita results) [facility] Lymphocytes# (Auto) 1.20-4.00 Normal (applies to non-nume tita results) [facility] Monocytes# (Auto) 0.00-0.90 Normal (applies to non-numeri c results) [facility] Eosinophils# (Auto) 0.00-0.50 Normal (applies to non-nume tita results) [facility] Basophils# (Auto) 0.00-0.20 Normal (applies to non-numeri c results) [facility] Immature Granulocytes# (Auto) 0.00-7.00 No rmal (applies to non-numeric results) [facility] ID Date Data Source [id number] 11/13/2019 07:09:00 AM EST [facility] Imaging Services Department Imaging Report [address] [place] [id number] %(RAD)RES..mtdd.print.filter("line") Name: MAMTA YORK : 1970 Age/Sex: 48M Ordering Provider: Efe Quispe MD Med Rec #: [id number] Reg Status: [facility] Room #: Date of Service: 11/12/19 Report Number: [id number] cc:Kole Perez NP Send Report To: [id number] CT/CT Abdomen & Pelvis No Contras Reason for exam: abd pain FINDINGS: Radiation treatment changes are noted in the right lower lobe. There is normal noncontrast CT appearance of the liver, spleen, pancreas, adrenal glands, and kidneys. No gallbladder wall thickening or biliary duct dilatation. The visualized bowel is normal in caliber. The appendix is normal. No bowel wallthickening. Bladder and pelvic organs appear normal. No acute osseous abnormality. No lymphadenopathy. IMPRESSION: No acute intra-abdominal process. While performing the above CT exam, the following dose reduction techniques wereused: *Automated exposure control *Adjustment of the mA and/or kV according to patient size *Use of iterative reconstruction technique CT Dose in mGy: Contrast Agent: Amount in ml: Method of Administration: REPORT SIGNATURE ON FILE Reported By: Chandana Simpson MD <Electronically signed by Chandana Simpson MD> 11/13/19 1127 Dictation Date/Time: 11/12/19 1740 Transcribed Date/Time: 11/13/19 0709 Manager People: TESSIE Name Value Range Interpretation Code Description Data Keysha rce(s) Supporting Document(s) ID Date Data Source [id number] 11/13/2019 08:48:00 AM [facility] Imaging Services Department Imaging Report [address] [place] [address] %(RAD)RES..mtdd.print.filter("line") Name: JAYLENMAMTA S : 1970 Age/Sex: 48M Ordering Provider: Efe Quispe MD Med Rec #: [id number] Reg Status: [facility] Room #: Date of Service: 11/12/19 Report Number: [id number] cc:Kole Perez NP Send Report To: [id number] XRP/XR Chest Xray Portable Reason for exam: Chest pain complaint FINDINGS: Pulmonary venous hypertension noted. Some minimal right base scarring with no other significant findings. IMPRESSION: Pulmonary venous hypertension. Minimal right lower lobe scarring. No other significant findings. Time portable performed: 1603 Fluoroscopy time in seconds: Number of Exposures: Contrast Agent in ml: Method of Administration: REPORT SIGNATURE ON FILE Reported By: Tigre Garcia MD <Electronically signed by Palmira Garcia MD> 11/13/19 0912 Dictation Date/Time: 11/12/19 1643 Transcribed Date/Time: 11/13/19 0848 Manager People: MICHAEL Name Value Range Interpretation Code Description Data [facility] Supporting Document(s) ID Date Data Source [id number] 11/12/2019 04:47:00 PM EST [facility] Method performed by Isothermal Nucle ic Acid Amplification. Reference value: Influenza A and B viral RNA not detected. This result does not rule out co-infections with other pathogens or identify any specific influenza A or B virus subtype/lineage. Negative results do not preclude infection with influenza virus and should not be the sole basis of a patient treatment decision.Not DetectedNot Detected Name Value Range Interpretation Code Description Data [facility] Supporting Document(s) ID Date Data Source [id number] 11/13/2019 02:34:00 PM EST [facility] Methodology: Multiplexed PCR Refer ence Range: None detected Name Value Range Interpretation Code Description Data [facility] Supporting Document(s) ID Date Data Source [id number] 10/19/2019 03:32:00 PM [facility] Name Value Range Interpretation Code Description Data Keysha rce(s) Supporting Document(s) CEA result 0.2-5.0 [facility] % Distribution of CEA 0 - 2.5 in 98.2% of nonsmokers and 87.3% of smokers 2.6 - 5.0 in 1.8% of non-smokers and 8.0% of smokers Serum CEA concentrations should not be interpreted as absolute evidence for the presence or absence of malignant disease. Assayed utilizing the Siemens ADVIA Centaur chemiluminometric technology. Values obtained by using different assay methods cannot be used interchangeably. ID Date Data Source [id number] 10/19/2019 03:24:00 PM [facility] Name Value Range Interpretation Code Description Data Keysha rce(s) Supporting Document(s) CEA 0.2-5.0 Above high normal [facility] % Distribution of CEA 0 - 2.5 in 98.2% of nonsmokers and 87.3% of smokers 2.6 - 5.0 in 1.8% of non-smokers and 8.0% of smokers Serum CEA concentrations should not be interpreted as absolute evidence for the presence or absence of malignant disease. Assayed utilizing the Siem[employer] ADVIA Centaur chemiluminometric technology. Values obtained by using different assay methods cannot be used interchangeably. ID Date Data Source [id number] 10/19/2019 02:28:00 PM [facility] Name Value Range Interpretation Code Description Data Keysha rce(s) Supporting Document(s) Sodium 140 mmol/L 136-145 Normal (applies to non-numeric resul ts) [facility] Potassium 3.5-5.1 Normal (applies to non-numeric resul ts) [facility] Chloride 100 mmol/L 98-107 Normal (applies to non-numeric resul ts) [facility] Carbon Dioxide CO2 21-32 Normal (applies to non-numer ic results) [facility] Anion Gap 5.0-16.0 Normal (applies to non-numeric resul ts) [facility] BUN 9 mg/dL 7-18 Normal (applies to non-numeric results) [facility] Creatinine,Serum 0.8-1.5 Normal (applies to non-numeric results) [facility] GFR >60 Normal (applies to non-numeric results) [facility] Glucose Level 133 mg/dL 60-99 Above high normal [facility] Reference range is only applicable when patient is fasting Note the following drug interference: Sulfasalazine Sulfapyridine Can see falsely depressed Can see falsely elevated result with up to 17% results with up to 11% decrease in measurement increase in measurement Recommend patients be collected for this test prior to administration of either drug. Calcium 8.5-10.1 Normal (applies to non-numeric resul ts) [facility] Bilirubin,Total 0.1-1.9 Normal (applies to non-numeric results) [facility] SGOT(AST) 16 U/L 15-37 Normal (applies to non-numeric resul ts) [facility] Note the following drug interference: Sulfasalazine Sulfapyridine Can see falsely depressed Can see falsely elevated result with up to 10% results with up to 10% decrease in measurement increase in measurement Recommend patients be collected for this test prior to administration of either drug. SGPT(ALT) 56 U/L 12-78 Normal (applies to non-numeric resul ts) [facility] Note the following drug interference: Sulfasalazine Sulfapyridine Can see falsely depressed Can see falsely elevated result with up to 29% results with up to 10% decrease in measurement increase in measurement Recommend patients be collected for this test prior to administration of either drug. Alkaline Phosphatase 73 U/L 38-126 Normal (applies to non-num martha results) [facility] can increase Alkaline Phosp le vels up to 2 times the normal adult value. Normal values for children and adolescents are 2 to 3 times the normal adult value. Total Protein 6.0-8.2 Normal (applies to non-numeric re sults) [facility] Albumin Level 3.4-5.0 Normal (applies to non-numeric re sults) [facility] ID Date Data Source [id number] 10/19/2019 02:28:00 PM EST [facility] Name Value Range Interpretation Code Description Data Keysha rce(s) Supporting Document(s) Thyroid Stimulate Hormone TSH 0.358-3.740 No rmal (applies to non-numeric results) [facility] ID Date Data Source [id number] 10/19/2019 02:28:00 PM EST [facility] Name Value Range Interpretation Code Description Data Keysha rce(s) Supporting Document(s) Free T4 (Free Thyroxine) 0.76-1.46 Normal (applies to non -numeric results) [facility] ID Date Data Source [id number] 10/19/2019 09:42:00 AM EST [facility] Name Value Range Interpretation Code Description Data Keysha rce(s) Supporting Document(s) White Blood Count 3.5-10.5 Above high normal [facility] Red Blood Count 4.30-5.70 Normal (applies to non-numeric results) [facility] Hemoglobin 13.5-17.5 Below low normal [facility] ospital Hematocrit 38.8-50.0 Normal (applies to non-numeric resul ts) [facility] Mean Corpuscular Volume 81.2-95.1 Normal (applies to non- numeric results) [facility] Mean Corpuscular Hgb 25.6-32.2 Normal (applies to non-num martha results) [facility] Mean Corpuscular Hgb Conc 32.0-36.0 Normal (applies to no n-numeric results) [facility] Red Cell Distribution Width 11.8-15.6 Normal (appli es to non-numeric results) [facility] Platelet Count 396 x10 3/uL 150-450 Normal (applies to non-numeric results) [facility] Mean Platelet Volume 9.4-12.4 Below low normal [facility] Neutrophils% (Auto) 31.0-71.0 Normal (applies to non-nume tita results) [facility] Lymphocytes% (Auto) 20.0-55.0 Normal (applies to non-nume tita results) [facility] Monocytes% (Auto) 4.0-12.0 Normal (applies to non-numeri c results) [facility] Eosinophils% (Auto) 1.0-8.0 Above high normal [facility] Basophils% (Auto) 0.0-2.0 Normal (applies to non-numeri c results) [facility] Immature Granulocytes% (Auto) 0.0-2.0 Normal (raquel lies to non-numeric results) [facility] Neutrophils# (Auto) 1.50-6.20 Normal (applies to non-nume tita results) [facility] Lymphocytes# (Auto) 1.20-4.00 Above high normal [facility] Monocytes# (Auto) 0.00-0.90 Above high normal [facility] Eosinophils# (Auto) 0.00-0.50 Above high normal [facility] Basophils# (Auto) 0.00-0.20 Normal (applies to non-numeri c results) [facility] Immature Granulocytes# (Auto) 0.00-7.00 No rmal (applies to non-numeric results) [facility] Slide has been reviewed and findings con firmed by a technologist/burner technician. ID Date Data Source [id number] 10/19/2019 01:40:00 PM EST [facility] Imaging Services Department Imaging Report [address] [place], [place] [id number] %(RAD)RES..mtdd.print.filter("line") Name: JAYLENMAMTA S : 1970 Age/Sex: 48M Ordering Provider: Kristel Campos MD Med Rec #: [id number] Reg Status: DEP REF Room #: Date of Service: 10/19/19 Report Number: [id number] cc:Kristel Campos MD; Kole Perez NP Send Report To: [id number] US/US Dup Upper Ext Veins Rt Reason for exam: [employer] DVT Technique: Ultrasound imaging performed using color flow and spectral Doppler interrogation. FINDINGS: Ultrasound imaging performed using color flow and spectral Doppler interrogation. There is normal flow and compressibility of the axillary vein, subclavian vein, and veins of the upper arm. There is no evidence of deep venous thrombosis. IMPRESSION: NO EVIDENCE OF DVT OF THE UPPER EXTREMITY. REPORT SIGNATURE ON FILE Reported By: Tigre Castellano MD <Electronically signed by Tigre Castellano MD> 10/20/19 1207 Dictation Date/Time: 10/19/19 1333 Transcribed Date/Time: 10/19/19 1340 Manager People: TESSIE Name Value Range Interpretation Code Description Data Keysha rce(s) Supporting Document(s) ID Date Data Source [id number] 10/19/2019 01:50:00 PM [facility] Imaging Services Department Imaging Report [address], [place] [address] %(RAD)RES..mtdd.print.filter("line") Name: MAMTA [place] : 1970 Age/Sex: 48M Ordering Provider: Kristel Campos MD Med Rec #: [id number] Reg Status: [facility] Room #: Date of Service: 10/19/19 Report Number: [id number] cc:Kristel Campos MD; Kole Perez NP Send Report To: [id number] US/US Soft Tissue Head/Neck Reason for exam: R LUNG CANCER - 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 Real time imaging of the neck was obtained. Multiple lymph nodes of varying size are present in the right neck. For further information CT is suggested. The remainder of the exam is unremarkable. IMPRESSION: Lymphadenopathy in the right neck. For further information CT is suggested. REPORT SIGNATURE ON FILE Reported By: Tigre Castellano MD <Electronically signed by Tigre Castellano MD> 10/20/19 1207 Dictation Date/Time: 10/19/19 1330 Transcribed Date/Time: 10/19/19 1350 Manager People: TESSIE Name Value Range Interpretation Code Description Data Keysha rce(s) Supporting Document(s) Procedure Social History Code Duration Value Status Description Data Source(s ) Smoking 03/15/2020 12:00:00 AM EDT - 11/04/2018 12:00:00 AM EST Patient is a former smoker completed Patient is a former smoker [facility] ([facility]) Vital Signs ID Date Data Source UNK Name Value Range Interpretation Code Description Data Source(s) Body weight 109.771 kg 109.771 kg [facility] ([facility]) Body mass index (BMI) [Ratio] 35.7 kg/m2 35.7 k g/m2 [facility] ([facility]) Body weight 242.00 [lb_av] 242.00 [lb_av] [facility] Body height 69 [in_i] 69 [in_i] [facility] ([facility]) 5'9" Body temperature 96.9 [degF] 96.9 [degF] [facility] ([facility]) Oxygen saturation in Arterial blood by Pulse oximetry 97 % 97 % [facility] ([facility]) Heart rate 93 /min 93 /min [facility] ([facility]) Diastolic blood pressure 70 mm[Hg] 70 mm[Hg] [facility] ([facility]) Systolic blood pressure 130 mm[Hg] 130 mm[Hg] M [facility] ([facility]) Body weight 102.060 kg 102.060 kg [facility] ([facility]) Body mass index (BMI) [Ratio] 33.2 kg/m2 33.2 k g/m2 [facility]) Body weight 225.00 [lb_av] 225.00 [lb_av] [facility] ([facility]) Body height 69 [in_i] 69 [in_i] [facility] ([facility]) 5'9" Oxygen saturation in Arterial blood by Pulse oximetry 99 % 99 % [facility] Heart rate 105 /min 105 /min [facility] ([facility]) Diastolic blood pressure 82 mm[Hg] 82 mm[Hg] [facility] ([facility]) Systolic blood pressure 102 mm[Hg] 102 mm[Hg] [facility] ID Date Data Source [id number] 09/18/2020 03:11:00 PM EST [facility] Name Value Range Interpretation Code Description Data Source(s) Weight Measurement Method 8 8 [facility] Weight [address] [facility] Temperature Source [address] [facility] 97.5 97.5 [facility] [address] [facility] Respiratory Rate 17 17 [facility] Pulse Assessment Method 4 4 G [facility] Pulse Rate 130 130 [facility] pital Height [address] [facility] Blood Pressure 129/91 129/91 [facility] Weight Measurement Method 8 8 [facility] Weight 3808 3808 [facility] pital Temperature Source [address] [facility] Temperature 97.5 97.5 [facility] spital Respiratory Effort [address] [facility] Respiratory Rate 17 17 [facility] Pulse Assessment Method 4 4 G [facility] Pulse Rate 134 134 [facility] pital Height [address] [facility] Blood Pressure 129/91 129/91 [facility] ID Date Data Source [id number] 05/06/2020 05:16:00 PM EDT [facility] Name Value Range Interpretation Code Description Data Source(s) Weight (Calculated Kilograms) 102.06 102.06 [facility] Height (Calculated Centimeters) 172.72 172. 72 [facility] Body Mass Index (BMI) 34.2 34.2 [facility] ID Date Data Source [id number] 04/26/2020 10:06:00 AM EDT [facility] spital Name Value Range Interpretation Code Description Data Source(s) Weight Measurement Method 8 8 [facility] Weight 3904 3904 [facility] pital Temperature Source [address] [facility] Temperature 98.1 98.1 [facility] spital Respiratory Effort [address] [facility] Respiratory Rate 18 18 [facility] Pulse Assessment Method 4 4 G [facility] Pulse Rate 118 118 [facility] pital Height 69 69 [facility] pital Blood Pressure 118/96 118/96 [facility] Weight Measurement Method 8 8 [facility] Weight 3904 3904 [facility] pital Temperature Source [address] [facility] Temperature 98.1 98.1 [facility] spital Respiratory Effort [address] [facility] Respiratory Rate 18 18 [facility] Pulse Assessment Method 4 4 G [facility] Pulse Rate 118 118 [facility] pital Height [address] Hospital[facility] Blood Pressure 118/96 118/96 [facility] ID Date Data Source [id number] 02/01/2020 08:14:00 PM EDT [facility] Name Value Range Interpretation Code Description Data Source(s) Weight (Calculated Kilograms) 102.06 102.06 [facility] Height (Calculated Centimeters) 172.72 172. 72 [facility] Body Mass Index (BMI) 34.2 34.2 [facility] ID Date Data Source [id number] 01/11/2020 01:55:00 PM EDT [facility] Name Value Range Interpretation Code Description Data Source(s) Weight (Calculated Kilograms) 102.06 102.06 [facility] Height (Calculated Centimeters) 172.72 172. 72 [facility] Body Mass Index (BMI) 34.2 34.2 [facility] ID Date Data Source [id number] 12/21/2019 02:19:00 PM EST [facility] Name Value Range Interpretation Code Description Data Source(s) Weight (Calculated Kilograms) 102.06 102.06 [facility] Height (Calculated Centimeters) 172.72 172. 72 [facility] Body Mass Index (BMI) 34.2 34.2 [facility] ID Date Data Source [id number] 11/13/2019 02:34:[address] [facility] Name Value Range Interpretation Code Description Data Source(s) Weight (Calculated Kilograms) 102.06 102.06 [facility] Height (Calculated Centimeters) 172.72 172. 72 [facility] Body Mass Index (BMI) 34.2 34.2 [facility] ID Date Data Source [id number] 11/17/2019 08:43:[address] [facility] Name Value Range Interpretation Code Description Data Source(s) Weight (Calculated Kilograms) 102.06 102.06 [facility] Height (Calculated Centimeters) 172.72 172. 72 [facility] Body Mass Index (BMI) 34.2 34.2 [facility] ID Date Data Source [id number] 12/14/2019 01:02:00 PM EST [facility] spital Name Value Range Interpretation Code Description Data Source(s) Weight Measurement Method 8 8 [facility] Weight [address] [facility] Temperature Source [address] [facility] Temperature 98.3 98.3 [facility] spital Respiratory Effort [address] [facility] Respiratory Rate 18 18 [facility] Pulse Assessment Method 4 4 G [facility] Pulse Rate 112 112 [facility] pital Height [address] Hospital[facility] Blood Pressure 150/60 150/60 [facility] Weight Measurement Method 8 8 [facility] Weight [address] Hospital[facility] Temperature Source [address] [facility] Temperature 98.3 98.3 [facility] spital Respiratory Effort [address] [facility] Respiratory Rate 18 18 [facility] Pulse Assessment Method 4 4 [facility] Pulse Rate 112 112 [facility] pital Height [address] Hospital[facility] Blood Pressure 150/60 150/60 [facility] Weight Measurement Method 8 8 [facility] Weight 3680 3680 [facility] pital Temperature Source [address] [facility] Temperature 98.3 98.3 [facility] spital Respiratory Effort [address] [facility] Respiratory Rate 16 16 [facility] Pulse Assessment Method 4 4 [facility] Pulse Rate 116 116 [facility] pital Height 69 69 [facility] pital Blood Pressure 112/63 112/63 [facility] Weight Measurement Method 8 8 [facility] Weight 3680 3680 [facility] pital Temperature Source [address] [facility] Temperature 98.3 98.3 [facility] spital Respiratory Effort [address] [facility] Respiratory Rate 16 16 [facility] Pulse Assessment Method 4 4 [facility] Pulse Rate 108 108 [facility] pital Height 69 69 [facility] pital Blood Pressure 117/80 117/80 [facility] ID Date Data Source [id number] 10/19/2019 03:24:00 PM [facility] Name Value Range Interpretation Code Description Data Source(s) Weight (Calculated Kilograms) 102.06 102.06 [facility] Height (Calculated Centimeters) 172.72 172. 72 [facility] Body Mass Index (BMI) 34.2 34.2 [facility]
[2020-11-21] MEDS ORDERED: ACETAMINOPHEN TAB 650MG DOSE (2X325MG) PO ONE (15:00)
--- NOTE | 2020-11-21 15:24 | REP ---
INDICATION: DYSPNEA/COUGH. COMPARISON: Comparison portable chest x-ray February 26, 2020. Comparison chest CT study October 17, 2020. TECHNIQUE: Portable upright AP chest radiograph. FINDINGS: There is a right internal jugular [id number] central venous line with its tip again noted in the expected location of the superior vena cava. Monitoring electrodes are seen. Air bronchograms are seen in a large parenchymal opacity in the right upper lobe abutting the minor fissure corresponding to the area of consolidation and collapse in the right upper lobe on recent CT study. This is new compared to the February 26, 2020 study. There is blunting of the right lateral pleural angle indicating right pleural effusion as seen on recent chest CT study. The left lung is clear. Heart is not felt to be enlarged.. IMPRESSION: Right pleural effusion. Large parenchymal opacity with air bronchograms right upper lobe as seen on recent CT study. Left lung remains clear.. <Electronically signed by Herbie Cosme > 11/21/20 2181
--- OUTSIDE RECORDS SUMMARY | 2020-11-21 15:26 | CCD ---
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 Sulfasalazine Sulfapyridine Can see falsely depressed Can see falsely elevated result with up to 17% results with up to 11% decrease in measurement increase in measurement Recommend patients be collected for this test prior to administration of either drug. Calcium 8.5-10.1 Normal (applies to non-numeric resul ts) [facility] Bilirubin,Total 0.1-1.9 Normal (applies to non-numeric results) [facility] SGOT(AST) 23 U/L 15-37 Normal (applies to non-numeric resul ts) [facility] Note the following drug interference: Sulfasalazine Sulfapyridine Can see falsely depressed Can see falsely elevated result with up to 10% results with up to 10% decrease in measurement increase in measurement Recommend patients be collected for this test prior to administration of either drug. SGPT(ALT) 74 U/L 12-78 Normal (applies to non-numeric resul ts) [facility] Note the following drug interference: Sulfasalazine Sulfapyridine Can see falsely depressed Can see falsely elevated result with up to 29% results with up to 10% decrease in measurement increase in measurement Recommend patients be collected for this test prior to administration of either drug. Alkaline Phosphatase 64 U/L 38-126 Normal (applies to non-num martha results) [facility] can increase Alkaline Phosp le vels up to 2 times the normal adult value. Normal values for children and adolescents are 2 to 3 times the normal adult value. Total Protein 6.0-8.2 Normal (applies to non-numeric re sults) [facility] Albumin Level 3.4-5.0 Normal (applies to non-numeric re sults) [facility] ID Date Data Source [id number] 06/16/2020 03:28:00 PM EDT [facility] Name Value Range Interpretation Code Description Data Keysha rce(s) Supporting Document(s) Sodium 141 mmol/L 136-145 Normal (applies to non-numeric resul ts) [facility] Potassium 3.5-5.1 Normal (applies to non-numeric resul ts) [facility] Chloride 105 mmol/L 98-107 Normal (applies to non-numeric resul ts) [facility] Carbon Dioxide CO2 21-32 Normal (applies to non-numer ic results) [facility] Anion Gap 5.0-16.0 Normal (applies to non-numeric resul ts) [facility] BUN 10 mg/dL 7-18 Normal (applies to non-numeric results) [facility] Creatinine,Serum 0.8-1.5 Normal (applies to non-numeric results) [facility] GFR >60 Normal (applies to non-numeric results) [facility] Glucose Level 158 mg/dL 60-99 Above high normal [facility] Reference range is only applicable when patient is fasting Note the following drug interference: Sulfasalazine Sulfapyridine Can see falsely depressed Can see falsely elevated result with up to 17% results with up to 11% decrease in measurement increase in measurement Recommend patients be collected for this test prior to administration of either drug. Calcium 8.5-10.1 Normal (applies to non-numeric resul ts) [facility] Bilirubin,Total 0.1-1.9 Normal (applies to non-numeric results) [facility] SGOT(AST) 25 U/L 15-37 Normal (applies to non-numeric resul ts) [facility] Note the following drug interference: Sulfasalazine Sulfapyridine Can see falsely depressed Can see falsely elevated result with up to 10% results with up to 10% decrease in measurement increase in measurement Recommend patients be collected for this test prior to administration of either drug. SGPT(ALT) 74 U/L 12-78 Normal (applies to non-numeric resul ts) [facility] Note the following drug interference: Sulfasalazine Sulfapyridine Can see falsely depressed Can see falsely elevated result with up to 29% results with up to 10% decrease in measurement increase in measurement Recommend patients be collected for this test prior to administration of either drug. Alkaline Phosphatase 62 U/L 38-126 Normal (applies to non-num martha results) [facility] can increase Alkaline Phosp le vels up to 2 times the normal adult value. Normal values for children and adolescents are 2 to 3 times the normal adult value. Total Protein 6.0-8.2 Normal (applies to non-numeric re sults) [facility] Albumin Level 3.4-5.0 Normal (applies to non-numeric re sults) [facility] ID Date Data Source [id number] 06/16/2020 03:28:00 PM EDT [facility] Name Value Range Interpretation Code Description Data Keysha rce(s) Supporting Document(s) Thyroid Stimulate Hormone TSH 0.358-3.74 No rmal (applies to non-numeric results) [facility] ID Date Data Source [id number] 06/16/2020 03:28:00 PM EDT [facility] Name Value Range Interpretation Code Description Data Keysha rce(s) Supporting Document(s) Free T4 (Free Thyroxine) 0.76-1.46 Normal (applies to non -numeric results) [facility] ID Date Data Source [id number] 06/16/2020 02:32:00 PM EDT [facility] Name Value Range Interpretation Code Description Data Keysha rce(s) Supporting Document(s) White Blood Count 3.5-10.5 Normal (applies to non-numeri c results) [facility] Red Blood Count 4.30-5.70 Below low normal [facility] Hemoglobin 13.5-17.5 Below low normal [facility] Hematocrit 38.8-50.0 Below low normal [facility] Mean Corpuscular Volume 81.2-95.1 Normal (applies to non- numeric results) [facility] Mean Corpuscular Hgb 25.6-32.2 Normal (applies to non-num martha results) [facility] Mean Corpuscular Hgb Conc 32.0-36.0 Normal (applies to no n-numeric results) [facility] Red Cell Distribution Width 11.8-15.6 Normal (appli es to non-numeric results) [facility] Platelet Count 268 x10 3/uL 150-450 Normal (applies to non-numeric results) [facility] Mean Platelet Volume 9.4-12.4 Below low normal [facility] Neutrophils% (Auto) 31.0-71.0 Normal (applies to non-nume tita results) [facility] Lymphocytes% (Auto) 20.0-55.0 Normal (applies to non-nume tita results) [facility] Monocytes% (Auto) 4.0-12.0 Normal (applies to non-numeri c results) [facility] Eosinophils% (Auto) 1.0-8.0 Above high normal [facility] Basophils% (Auto) 0.0-2.0 Normal (applies to non-numeri c results) [facility] Immature Granulocytes% (Auto) 0.0-2.0 Normal (raquel lies to non-numeric results) [facility] Neutrophils# (Auto) 1.50-6.20 Normal (applies to non-nume tita results) [facility] Lymphocytes# (Auto) 1.20-4.00 Normal (applies to non-nume tita results) [facility] Monocytes# (Auto) 0.00-0.90 Normal (applies to non-numeri c results) [facility] Eosinophils# (Auto) 0.00-0.50 Above high normal [facility] Basophils# (Auto) 0.00-0.20 Normal (applies to non-numeri c results) [facility] Immature Granulocytes# (Auto) 0.00-7.00 No rmal (applies to non-numeric results) [facility] Slide Reviewed By Normal (applies to non-numeri c results) [facility] Slide has been reviewed and findings con firmed by a technologist/medical equipment repair technician. ID Date Data Source [id number] 05/27/2020 11:00:00 AM EDT [facility] Name Value Range Interpretation Code Description Data Keysha rce(s) Supporting Document(s) Sodium 139 mmol/L 136-145 Normal (applies to non-numeric resul ts) [facility] Potassium 3.5-5.1 Normal (applies to non-numeric resul ts) [facility] Chloride 102 mmol/L 98-107 Normal (applies to non-numeric resul ts) [facility] Carbon Dioxide CO2 21-32 Normal (applies to non-numer ic results) [facility] Anion Gap 5.0-16.0 Normal (applies to non-numeric resul ts) [facility] BUN 9 mg/dL 7-18 Normal (applies to non-numeric results) [facility] Creatinine,Serum 0.8-1.5 Normal (applies to non-numeric results) [facility] GFR >60 Normal (applies to non-numeric results) [facility] Glucose Level 155 mg/dL 60-99 Above high normal [facility] Reference range is only applicable when patient is fasting Note the following drug interference: Sulfasalazine Sulfapyridine Can see falsely depressed Can see falsely elevated result with up to 17% results with up to 11% decrease in measurement increase in measurement Recommend patients be collected for this test prior to administration of either drug. Calcium 8.5-10.1 Normal (applies to non-numeric resul ts) [facility] Bilirubin,Total 0.1-1.9 Normal (applies to non-numeric results) [facility] SGOT(AST) 20 U/L 15-37 Normal (applies to non-numeric resul ts) [facility] Note the following drug interference: Sulfasalazine Sulfapyridine Can see falsely depressed Can see falsely elevated result with up to 10% results with up to 10% decrease in measurement increase in measurement Recommend patients be collected for this test prior to administration of either drug. SGPT(ALT) 70 U/L 12-78 Normal (applies to non-numeric resul ts) [facility] Note the following drug interference: Sulfasalazine Sulfapyridine Can see falsely depressed Can see falsely elevated result with up to 29% results with up to 10% decrease in measurement increase in measurement Recommend patients be collected for this test prior to administration of either drug. Alkaline Phosphatase 66 U/L 38-126 Normal (applies to non-num martha results) [facility] can increase Alkaline Phosp le vels up to 2 times the normal adult value. Normal values for children and adolescents are 2 to 3 times the normal adult value. Total Protein 6.0-8.2 Normal (applies to non-numeric re sults) [facility] Albumin Level 3.4-5.0 Normal (applies to non-numeric re sults) [facility] ID Date Data Source [id number] [facility] Interpretation Code Description Data Keysha rce(s) Supporting Document(s) Thyroid Stimulate Hormone TSH 0.358-3.74 No rmal (applies to non-numeric results) [facility] ID Date Data Source [id number] 05/27/2020 11:00:00 AM EDT [facility] Name Value Range Interpretation Code Description Data Keysha rce(s) Supporting Document(s) Free T4 (Free Thyroxine) 0.76-1.46 Normal (applies to non -numeric results) [facility] ID Date Data Source [id number] 05/27/2020 10:30:00 AM EDT [facility] Name Value Range Interpretation Code Description Data Keysha rce(s) Supporting Document(s) White Blood Count 3.5-10.5 Normal (applies to non-numeri c results) [facility] Red Blood Count 4.30-5.70 Below low normal [facility] Hemoglobin 13.5-17.5 Below low normal [facility] Hematocrit 38.8-50.0 Normal (applies to non-numeric resul ts) [facility] Mean Corpuscular Volume 81.2-95.1 Normal (applies to non- numeric results) [facility] Mean Corpuscular Hgb 25.6-32.2 Normal (applies to non-num martha results) [facility] Mean Corpuscular Hgb Conc 32.0-36.0 Normal (applies to no n-numeric results) [facility] Red Cell Distribution Width 11.8-15.6 Normal (appli es to non-numeric results) [facility] Platelet Count 246 x10 3/uL 150-450 Normal (applies to non-numeric results) [facility] Mean Platelet Volume 9.4-12.4 Below low normal [facility] Neutrophils% (Auto) 31.0-71.0 Normal (applies to non-nume tita results) [facility] Lymphocytes% (Auto) 20.0-55.0 Normal (applies to non-nume tita results) [facility] Monocytes% (Auto) 4.0-12.0 Normal (applies to non-numeri c results) [facility] Eosinophils% (Auto) 1.0-8.0 Above high normal [facility] Basophils% (Auto) 0.0-2.0 Normal (applies to non-numeri c results) [facility] Immature Granulocytes% (Auto) 0.0-2.0 Normal (raquel lies to non-numeric results) [facility] Neutrophils# (Auto) 1.50-6.20 Normal (applies to non-nume tita results) [facility] Lymphocytes# (Auto) 1.20-4.00 Normal (applies to non-nume tita results) [facility] Monocytes# (Auto) 0.00-0.90 Normal (applies to non-numeri c results) [facility] Eosinophils# (Auto) 0.00-0.50 Above high normal [facility] Basophils# (Auto) 0.00-0.20 Normal (applies to non-numeri c results) [facility] Immature Granulocytes# (Auto) 0.00-7.00 No rmal (applies to non-numeric results) [facility] ID Date Data Source [id number] 05/06/2020 05:40:00 PM EDT [facility] Name Value Range Interpretation Code Description Data Keysha rce(s) Supporting Document(s) UMAL[facility] Urine Creatinine result Normal (applies t o non-numeric results) [facility] Interpret with care as there is no estab lished reference range associated with this assay's methodology that pertains to this particular sex and/or age. [facility]AL[facility] Microalbumin,Ur result <1.7 [facility] UMALB Alb/Cre Ratio,Ur result Normal (applies t o non-numeric results) [facility] Test Performed By: [facility] [address] [place] [address] Director: Gino Hoyt MD Reference Ranges for Microalbumin,spot: Normal <30 ug/mg creatinine Microalbuminuria 30-300 ug/mg creatinine Clinical Albuminuria >300 ug/mg creatinine ID Date Data Source [id number] 05/06/2020 05:16:00 PM EDT [facility] Name Value Range Interpretation Code Description Data Keysha rce(s) Supporting Document(s) Creatinine,Urine Normal (applies to non-numeric results) [facility] Interpret with care as there is no estab lished reference range associated with this assay's methodology that pertains to this particular sex and/or age. Microalbumin,Urine <1.7 Above high normal [facility] Albumin/Creatinine Ratio,Urine Normal (applies to non-numeric results) [facility] Test Performed By: [facility] [address] [place] [address] Director: Gino Hoyt MD Reference Ranges for Microalbumin,spot: Normal <30 ug/mg creatinine Microalbuminuria 30-300 ug/mg creatinine Clinical Albuminuria >300 ug/mg creatinine ID Date Data Source [id number] 05/06/2020 12:45:00 PM EDT [facility] Name Value Range Interpretation Code Description Data Keysha rce(s) Supporting Document(s) Vitamin D, Total 30.0-100.0 Below low normal [facility] ID Date Data Source [id number] 05/06/2020 12:14:00 PM EDT [facility] Name Value Range Interpretation Code Description Data Keysha rce(s) Supporting Document(s) Color,Urine Colorl-Dk Y Normal (applies to non-numeric res ults) [facility] Clarity,Urine Clear Normal (applies to non-numeric re sults) [facility] Specific [place],Urine 1.005-1.030 Normal (applies to non- numeric results) [facility] pH,Urine 5.0-8.0 Normal (applies to non-numeric resul ts) [facility] Protein,Urine Negative [facility] Glucose,Urine Negative [facility] Ketones,Urine Negative [facility] Blood,Urine Negative Normal (applies to non-numeric resu lts) [facility] Bilirubin,Urine Negative Normal (applies to non-numeric results) [facility] Urobilinogen,Urine 0.2-1.0 Normal (applies to non-numer ic results) [facility] Leukocyte Esterase,Urine Negative Normal (applies to non -numeric results) [facility] Nitrite,Urine Negative Normal (applies to non-numeric re sults) [facility] RBC,Urine None Seen Normal (applies to non-numeric resul ts) [facility] WBC,Urine None Seen Normal (applies to non-numeric resul ts) [facility] Casts,Urine None Seen Normal (applies to non-numeric resu lts) [facility] Squamous Cells,Urine None Seen [facility] Amorphous Sediment,Urine None Seen [facility] Bacteria,Urine None Seen [facility] ital Mucus,Urine None Seen [facility] l ID Date Data Source [id number] 05/06/2020 12:09:00 PM EDT [facility] Name Value Range Interpretation Code Description Data Keysha rce(s) Supporting Document(s) Sodium 140 mmol/L 136-145 Normal (applies to non-numeric resul ts) [facility] Potassium 3.5-5.1 Normal (applies to non-numeric resul ts) [facility] Chloride 104 mmol/L 98-107 Normal (applies to non-numeric resul ts) [facility] Carbon Dioxide CO2 21-32 Normal (applies to non-numer ic results) [facility] Anion Gap 5.0-16.0 Normal (applies to non-numeric resul ts) [facility] BUN 7 mg/dL 7-18 Normal (applies to non-numeric results) [facility] Creatinine,Serum 0.8-1.5 Normal (applies to non-numeric results) [facility] GFR >60 Normal (applies to non-numeric results) [facility] Glucose Level 202 mg/dL 60-99 Above high normal [facility] Reference range is only applicable when patient is fasting Note the following drug interference: Sulfasalazine Sulfapyridine Can see falsely depressed Can see falsely elevated result with up to 17% results with up to 11% decrease in measurement increase in measurement Recommend patients be collected for this test prior to administration of either drug. Calcium 8.5-10.1 Normal (applies to non-numeric resul ts) [facility] Bilirubin,Total 0.1-1.9 Normal (applies to non-numeric results) [facility] SGOT(AST) 23 U/L 15-37 Normal (applies to non-numeric resul ts) [facility] Note the following drug interference: Sulfasalazine Sulfapyridine Can see falsely depressed Can see falsely elevated result with up to 10% results with up to 10% decrease in measurement increase in measurement Recommend patients be collected for this test prior to administration of either drug. SGPT(ALT) 82 U/L 12-78 Above high normal [facility] Note the following drug interference: Sulfasalazine Sulfapyridine Can see falsely depressed Can see falsely elevated result with up to 29% results with up to 10% decrease in measurement increase in measurement Recommend patients be collected for this test prior to administration of either drug. Alkaline Phosphatase 62 U/L 38-126 Normal (applies to non-num martha results) [facility] can increase Alkaline Phosp le vels up to 2 times the normal adult value. Normal values for children and adolescents are 2 to 3 times the normal adult value. Total Protein 6.0-8.2 Normal (applies to non-numeric re sults) [facility] Albumin Level 3.4-5.0 Normal (applies to non-numeric re sults) [facility] ID Date Data Source [id number] 05/06/2020 12:09:00 PM EDT [facility] Name Value Range Interpretation Code Description Data Keysha rce(s) Supporting Document(s) Thyroid Stimulate Hormone TSH 0.358-3.74 No rmal (applies to non-numeric results) [facility] ID Date Data Source [id number] 05/06/2020 12:09:00 PM T [facility] Name Value Range Interpretation Code Description Data Keysha rce(s) Supporting Document(s) Free T4 (Free Thyroxine) 0.76-1.46 Normal (applies to non -numeric results) [facility] ID Date Data Source [id number] 05/06/2020 12:08:00 PM [facility] Name Value Range Interpretation Code Description Data Keysha rce(s) Supporting Document(s) Triglycerides 76 mg/dL <150 Normal (applies to non-numeric re sults) [facility] Cholesterol 153 mg/dL 100-200 Normal (applies to non-numeric resu lts) [facility] LDL Cholesterol Calculated 95 0-130 Normal (applies to n on-numeric results) [facility] HDL Cholesterol 43 mg/dL 40-60 Normal (applies to non-numeric results) [facility] Cholesterol/HDL Ratio 3.6-6.7 Normal (applies to non-nu meric results) [facility] ID Date Data Source [id number] 05/06/2020 11:38:00 AM EDT [facility] Name Value Range Interpretation Code Description Data Keysha rce(s) Supporting Document(s) White Blood Count 3.5-10.5 Normal (applies to non-numeri c results) [facility] Red Blood Count 4.30-5.70 Below low normal [facility] Hemoglobin 13.5-17.5 Below low normal [facility] Hematocrit 38.8-50.0 Below low normal [facility] Mean Corpuscular Volume 81.2-95.1 Normal (applies to non- numeric results) [facility] Mean Corpuscular Hgb 25.6-32.2 Normal (applies to non-num martha results) [facility] Mean Corpuscular Hgb Conc 32.0-36.0 Normal (applies to no n-numeric results) [facility] Red Cell Distribution Width 11.8-15.6 Below low normal [facility] Platelet Count 263 x10 3/uL 150-450 Normal (applies to non-numeric results) [facility] Mean Platelet Volume 9.4-12.4 Below low normal [facility] Neutrophils% (Auto) 31.0-71.0 Normal (applies to non-nume tita results) [facility] Lymphocytes% (Auto) 20.0-55.0 Below low normal [facility] Monocytes% (Auto) 4.0-12.0 Normal (applies to non-numeri c results) [facility] Eosinophils% (Auto) 1.0-8.0 Normal (applies to non-nume tita results) [facility] Basophils% (Auto) 0.0-2.0 Normal (applies to non-numeri c results) [facility] Immature Granulocytes% (Auto) 0.0-2.0 Normal (raquel lies to non-numeric results) [facility] Neutrophils# (Auto) 1.50-6.20 Normal (applies to non-nume tita results) [facility] Lymphocytes# (Auto) 1.20-4.00 Below low normal [facility] Monocytes# (Auto) 0.00-0.90 Normal (applies to non-numeri c results) [facility] Eosinophils# (Auto) 0.00-0.50 Normal (applies to non-nume tita results) [facility] Basophils# (Auto) 0.00-0.20 Normal (applies to non-numeri c results) [facility] Immature Granulocytes# (Auto) 0.00-7.00 No rmal (applies to non-numeric results) [facility] ID Date Data Source [id number] 03/21/2020 10:51:00 AM EDT [facility] Name Value Range Interpretation Code Description Data Keysha rce(s) Supporting Document(s) Sodium 135 mmol/L 136-145 Below low normal [facility] Potassium 3.5-5.1 Normal (applies to non-numeric resul ts) [facility] Chloride 100 mmol/L 98-107 Normal (applies to non-numeric resul ts) [facility] Carbon Dioxide CO2 21-32 Normal (applies to non-numer ic results) [facility] Anion Gap 5.0-16.0 Normal (applies to non-numeric resul ts) [facility] BUN 10 mg/dL 7-18 Normal (applies to non-numeric results) [facility] Creatinine,Serum 0.8-1.5 Normal (applies to non-numeric results) [facility] GFR >60 Normal (applies to non-numeric results) [facility] Glucose Level 233 mg/dL 60-99 Above high normal [facility] Reference range is only applicable when patient is fasting Note the following drug interference: Sulfasalazine Sulfapyridine Can see falsely depressed Can see falsely elevated result with up to 17% results with up to 11% decrease in measurement increase in measurement Recommend patients be collected for this test prior to administration of either drug. Calcium 8.5-10.1 Normal (applies to non-numeric resul ts) [facility] Bilirubin,Total 0.1-1.9 Normal (applies to non-numeric results) [facility] SGOT(AST) 30 U/L 15-37 Normal (applies to non-numeric resul ts) [facility] Note the following drug interference: Sulfasalazine Sulfapyridine Can see falsely depressed Can see falsely elevated result with up to 10% results with up to 10% decrease in measurement increase in measurement Recommend patients be collected for this test prior to administration of either drug. SGPT(ALT) 73 U/L 12-78 Normal (applies to non-numeric resul ts) [facility] Note the following drug interference: Sulfasalazine Sulfapyridine Can see falsely depressed Can see falsely elevated result with up to 29% results with up to 10% decrease in measurement increase in measurement Recommend patients be collected for this test prior to administration of either drug. Alkaline Phosphatase 78 U/L 38-126 Normal (applies to non-num martha results) [facility] can increase Alkaline Phosp le vels up to 2 times the normal adult value. Normal values for children and adolescents are 2 to 3 times the normal adult value. Total Protein 6.0-8.2 Normal (applies to non-numeric re sults) [facility] Albumin Level 3.4-5.0 Normal (applies to non-numeric re sults) [facility] ID Date Data Source [id number] 03/21/2020 10:51:00 AM EDT [facility] Name Value Range Interpretation Code Description Data Keysha rce(s) Supporting Document(s) Thyroid Stimulate Hormone TSH 0.358-3.74 No rmal (applies to non-numeric results) [facility] ID Date Data Source [id number] 03/21/2020 10:51:00 AM T [facility] Name Value Range Interpretation Code Description Data Keysha rce(s) Supporting Document(s) Free T4 (Free Thyroxine) 0.76-1.46 Normal (applies to non -numeric results) [facility] ID Date Data Source [id number] 03/21/2020 10:23:00 AM T [facility] Name Value Range Interpretation Code Description Data Keysha rce(s) Supporting Document(s) White Blood Count 3.5-10.5 Normal (applies to non-numeri c results) [facility] Red Blood Count 4.30-5.70 Normal (applies to non-numeric results) [facility] Hemoglobin 13.5-17.5 Normal (applies to non-numeric resul ts) [facility] Hematocrit 38.8-50.0 Normal (applies to non-numeric resul ts) [facility] Mean Corpuscular Volume 81.2-95.1 Normal (applies to non- numeric results) [facility] Mean Corpuscular Hgb 25.6-32.2 Normal (applies to non-num martha results) [facility] Mean Corpuscular Hgb Conc 32.0-36.0 Normal (applies to no n-numeric results) [facility] Red Cell Distribution Width 11.8-15.6 Below low normal [facility] Platelet Count 285 x10 3/uL 150-450 Normal (applies to non-numeric results) [facility] Mean Platelet Volume 9.4-12.4 Below low normal [facility] Neutrophils% (Auto) 31.0-71.0 Normal (applies to non-nume tita results) [facility] Lymphocytes% (Auto) 20.0-55.0 Normal (applies to non-nume tiat results) [facility] Monocytes% (Auto) 4.0-12.0 Normal (applies to non-numeri c results) [facility] Eosinophils% (Auto) 1.0-8.0 Normal (applies to non-nume tita results) [facility] Basophils% (Auto) 0.0-2.0 Normal (applies to non-numeri c results) [facility] Immature Granulocytes% (Auto) 0.0-2.0 Normal (raquel lies to non-numeric results) [facility] Neutrophils# (Auto) 1.50-6.20 Normal (applies to non-nume tita results) [facility] Lymphocytes# (Auto) 1.20-4.00 Above high normal [facility] Monocytes# (Auto) 0.00-0.90 Normal (applies to non-numeri c results) [facility] Eosinophils# (Auto) 0.00-0.50 Above high normal [facility] Basophils# (Auto) 0.00-0.20 Normal (applies to non-numeri c results) [facility] Immature Granulocytes# (Auto) 0.00-7.00 No rmal (applies to non-numeric results) [facility] ID Date Data Source [id number] 02/22/2020 11:13:00 AM EDT [facility] Name Value Range Interpretation Code Description Data Keysha rce(s) Supporting Document(s) Sodium 139 mmol/L 136-145 Normal (applies to non-numeric resul ts) [facility] Potassium 3.5-5.1 Normal (applies to non-numeric resul ts) [facility] Chloride 101 mmol/L 98-107 Normal (applies to non-numeric resul ts) [facility] Carbon Dioxide CO2 21-32 Normal (applies to non-numer ic results) [facility] Anion Gap 5.0-16.0 Normal (applies to non-numeric resul ts) [facility] BUN 12 mg/dL 7-18 Normal (applies to non-numeric results) [facility] Creatinine,Serum 0.8-1.5 Normal (applies to non-numeric results) [facility] GFR >60 Normal (applies to non-numeric results) [facility] Glucose Level 227 mg/dL 60-99 Above high normal [facility] Reference range is only applicable when patient is fasting Note the following drug interference: Sulfasalazine Sulfapyridine Can see falsely depressed Can see falsely elevated result with up to 17% results with up to 11% decrease in measurement increase in measurement Recommend patients be collected for this test prior to administration of either drug. Calcium 8.5-10.1 Normal (applies to non-numeric resul ts) [facility] Bilirubin,Total 0.1-1.9 Normal (applies to non-numeric results) [facility] SGOT(AST) 23 U/L 15-37 Normal (applies to non-numeric resul ts) [facility] Note the following drug interference: Sulfasalazine Sulfapyridine Can see falsely depressed Can see falsely elevated result with up to 10% results with up to 10% decrease in measurement increase in measurement Recommend patients be collected for this test prior to administration of either drug. SGPT(ALT) 88 U/L 12-78 Above high normal [facility] Note the following drug interference: Sulfasalazine Sulfapyridine Can see falsely depressed Can see falsely elevated result with up to 29% results with up to 10% decrease in measurement increase in measurement Recommend patients be collected for this test prior to administration of either drug. Alkaline Phosphatase 67 U/L 38-126 Normal (applies to non-num martha results) [facility] can increase Alkaline Phosp le vels up to 2 times the normal adult value. Normal values for children and adolescents are 2 to 3 times the normal adult value. Total Protein 6.0-8.2 Normal (applies to non-numeric re sults) [facility] Albumin Level 3.4-5.0 Normal (applies to non-numeric re sults) [facility] ID Date Data Source [id number] 02/22/2020 11:13:00 AM T [facility] Name Value Range Interpretation Code Description Data Keysha rce(s) Supporting Document(s) Thyroid Stimulate Hormone TSH 0.358-3.74 No rmal (applies to non-numeric results) [facility] ID Date Data Source [id number] 02/22/2020 11:13:00 AM T [facility] Name Value Range Interpretation Code Description Data Keysha rce(s) Supporting Document(s) Free T4 (Free Thyroxine) 0.76-1.46 Normal (applies to non -numeric results) [facility] ID Date Data Source [id number] 02/22/2020 10:17:00 AM [facility] Name Value Range Interpretation Code Description Data Keysha rce(s) Supporting Document(s) White Blood Count 3.5-10.5 Normal (applies to non-numeri c results) [facility] Red Blood Count 4.30-5.70 Below low normal [facility] Hemoglobin 13.5-17.5 Below low normal [facility] Hematocrit 38.8-50.0 Normal (applies to non-numeric resul ts) [facility] Mean Corpuscular Volume 81.2-95.1 Normal (applies to non- numeric results) [facility] Mean Corpuscular Hgb 25.6-32.2 Normal (applies to non-num martha results) [facility] Mean Corpuscular Hgb Conc 32.0-36.0 Normal (applies to no n-numeric results) [facility] Red Cell Distribution Width 11.8-15.6 Normal (appli es to non-numeric results) [facility] Platelet Count 237 x10 3/uL 150-450 Normal (applies to non-numeric results) [facility] Mean Platelet Volume 9.4-12.4 Below low normal [facility] Neutrophils% (Auto) 31.0-71.0 Normal (applies to non-nume tita results) [facility] Lymphocytes% (Auto) 20.0-55.0 Normal (applies to non-nume tita results) [facility] Monocytes% (Auto) 4.0-12.0 Normal (applies to non-numeri c results) [facility] Eosinophils% (Auto) 1.0-8.0 Normal (applies to non-nume tita results) [facility] Basophils% (Auto) 0.0-2.0 Normal (applies to non-numeri c results) [facility] Immature Granulocytes% (Auto) 0.0-2.0 Normal (raquel lies to non-numeric results) [facility] Neutrophils# (Auto) 1.50-6.20 Normal (applies to non-nume tita results) [facility] Lymphocytes# (Auto) 1.20-4.00 Normal (applies to non-nume tita results) [facility] Monocytes# (Auto) 0.00-0.90 Normal (applies to non-numeri c results) [facility] Eosinophils# (Auto) 0.00-0.50 Normal (applies to non-nume tita results) [facility] Basophils# (Auto) 0.00-0.20 Normal (applies to non-numeri c results) [facility] Immature Granulocytes# (Auto) 0.00-7.00 No rmal (applies to non-numeric results) [facility] ID Date Data Source [id number] 02/01/2020 09:18:00 PM [facility] Name Value Range Interpretation Code Description Data Keysha rce(s) Supporting Document(s) CEA result 0.2-5.0 Normal (applies to non-numeric resul ts) [facility] % Distribution of CEA 0 - [...] be used interchangeably. ID Date Data Source [id number] [facility] Value [facility] Interpretation Code Description Data Keysha rce(s) Supporting Document(s) CEA 0.2-5.0 Normal (applies to non-numeric results) [facility] % Distribution of CEA 0 - [...] be used interchangeably. ID Date Data Source [id number] 02/01/2020 10:55:00 AM [facility] Name Value Range Interpretation Code Description Data Keysha rce(s) Supporting Document(s) Sodium 138 mmol/L 136-145 Normal (applies to non-numeric resul ts) [facility] Potassium 3.5-5.1 Normal (applies to non-numeric resul ts) [facility] Chloride 102 mmol/L 98-107 Normal (applies to non-numeric resul ts) [facility] Carbon Dioxide CO2 21-32 Normal (applies to non-numer ic results) [facility] Anion Gap 5.0-16.0 Normal (applies to non-numeric resul ts) [facility] BUN 9 mg/dL 7-18 Normal (applies to non-numeric results) [facility] Creatinine,Serum 0.8-1.5 Normal (applies to non-numeric results) [facility] GFR >60 Normal (applies to non-numeric results) [facility] Glucose Level 159 mg/dL 60-99 Above high normal [facility] Reference range is only applicable when patient is fasting Note the following drug interference: Sulfasalazine Sulfapyridine Can see falsely depressed Can see falsely elevated result with up to 17% results with up to 11% decrease in measurement increase in measurement Recommend patients be collected for this test prior to administration of either drug. Calcium 8.5-10.1 Normal (applies to non-numeric resul ts) [facility] Bilirubin,Total 0.1-1.9 Normal (applies to non-numeric results) [facility] SGOT(AST) 21 U/L 15-37 Normal (applies to non-numeric resul ts) [facility] Note the following drug interference: Sulfasalazine Sulfapyridine Can see falsely depressed Can see falsely elevated result with up to 10% results with up to 10% decrease in measurement increase in measurement Recommend patients be collected for this test prior to administration of either drug. SGPT(ALT) 67 U/L 12-78 Normal (applies to non-numeric resul ts) [facility] Note the following drug interference: Sulfasalazine Sulfapyridine Can see falsely depressed Can see falsely elevated result with up to 29% results with up to 10% decrease in measurement increase in measurement Recommend patients be collected for this test prior to administration of either drug. Alkaline Phosphatase 68 U/L 38-126 Normal (applies to non-num martha results) [facility] can increase Alkaline Phosp le vels up to 2 times the normal adult value. Normal values for children and adolescents are 2 to 3 times the normal adult value. Total Protein 6.0-8.2 Normal (applies to non-numeric re sults) [facility] Albumin Level 3.4-5.0 Normal (applies to non-numeric re sults) [facility] ID Date Data Source [id number] 02/01/2020 10:55:00 AM EDT [facility] Name Value Range Interpretation Code Description Data Keysha rce(s) Supporting Document(s) Thyroid Stimulate Hormone TSH 0.358-3.74 No rmal (applies to non-numeric results) [facility] ID Date Data Source [id number] 02/01/2020 10:55:00 AM EDT [facility] Name Value Range Interpretation Code Description Data Keysha rce(s) Supporting Document(s) Free T4 (Free Thyroxine) 0.76-1.46 Normal (applies to non -numeric results) [facility] ID Date Data Source [id number] 02/01/2020 10:13:00 AM EDT [facility] Name Value Range Interpretation Code Description Data Keysha rce(s) Supporting Document(s) White Blood Count 3.5-10.5 Normal (applies to non-numeri c results) [facility] Red Blood Count 4.30-5.70 Below low normal [facility] Hemoglobin 13.5-17.5 Below low normal [facility] Hematocrit 38.8-50.0 Below low normal [facility] Mean Corpuscular Volume 81.2-95.1 Above high normal [facility] Mean Corpuscular Hgb 25.6-32.2 Normal (applies to non-num martha results) [facility] Mean Corpuscular Hgb Conc 32.0-36.0 Normal (applies to no n-numeric results) [facility] Red Cell Distribution Width 11.8-15.6 Normal (appli es to non-numeric results) [facility] Platelet Count 224 x10 3/uL 150-450 Normal (applies to non-numeric results) [facility] Mean Platelet Volume 9.4-12.4 Below low normal [facility] Neutrophils% (Auto) 31.0-71.0 Normal (applies to non-nume tita results) [facility] Lymphocytes% (Auto) 20.0-55.0 Normal (applies to non-nume tita results) [facility] Monocytes% (Auto) 4.0-12.0 Normal (applies to non-numeri c results) [facility] Eosinophils% (Auto) 1.0-8.0 Normal (applies to non-nume tita results) [facility] Basophils% (Auto) 0.0-2.0 Normal (applies to non-numeri c results) [facility] Immature Granulocytes% (Auto) 0.0-2.0 Normal (raquel lies to non-numeric results) [facility] Neutrophils# (Auto) 1.50-6.20 Normal (applies to non-nume tita results) [facility] Lymphocytes# (Auto) 1.20-4.00 Normal (applies to non-nume tita results) [facility] Monocytes# (Auto) 0.00-0.90 Normal (applies to non-numeri c results) [facility] Eosinophils# (Auto) 0.00-0.50 Normal (applies to non-nume tita results) [facility] Basophils# (Auto) 0.00-0.20 Normal (applies to non-numeri c results) [facility] Immature Granulocytes# (Auto) 0.00-7.00 No rmal (applies to non-numeric results) [facility] ID Date Data Source [id number] 01/12/2020 08:24:00 AM EDT [facility] Name Value Range Interpretation Code Description Data Keysha rce(s) Supporting Document(s) Free T4 (Free Thyroxine) 0.76-1.46 Normal (applies to non -numeric results) [facility] ID Date Data Source [id number] 01/12/2020 07:34:00 AM EDT [facility] Name Value Range Interpretation Code Description Data Keysha rce(s) Supporting Document(s) Sodium 140 mmol/L 136-145 Normal (applies to non-numeric resul ts) [facility] Potassium 3.5-5.1 Normal (applies to non-numeric resul ts) [facility] Chloride 102 mmol/L 98-107 Normal (applies to non-numeric resul ts) [facility] Carbon Dioxide CO2 21-32 Normal (applies to non-numer ic results) [facility] Anion Gap 5.0-16.0 Normal (applies to non-numeric resul ts) [facility] BUN 10 mg/dL 7-18 Normal (applies to non-numeric results) [facility] Creatinine,Serum 0.8-1.5 Normal (applies to non-numeric results) [facility] GFR >60 Normal (applies to non-numeric results) [facility] Glucose Level 154 mg/dL 60-99 Above high normal [facility] Reference range is only applicable when patient is fasting Note the following drug interference: Sulfasalazine Sulfapyridine Can see falsely depressed Can see falsely elevated result with up to 17% results with up to 11% decrease in measurement increase in measurement Recommend patients be collected for this test prior to administration of either drug. Calcium 8.5-10.1 Normal (applies to non-numeric resul ts) [facility] Bilirubin,Total 0.1-1.9 Normal (applies to non-numeric results) [facility] SGOT(AST) 18 U/L 15-37 Normal (applies to non-numeric resul ts) [facility] Note the following drug interference: Sulfasalazine Sulfapyridine Can see falsely depressed Can see falsely elevated result with up to 10% results with up to 10% decrease in measurement increase in measurement Recommend patients be collected for this test prior to administration of either drug. SGPT(ALT) 49 U/L 12-78 Normal (applies to non-numeric resul ts) [facility] Note the following drug interference: Sulfasalazine Sulfapyridine Can see falsely depressed Can see falsely elevated result with up to 29% results with up to 10% decrease in measurement increase in measurement Recommend patients be collected for this test prior to administration of either drug. Alkaline Phosphatase 72 U/L 38-126 Normal (applies to non-num martha results) [facility] can increase Alkaline Phosp le vels up to 2 times the normal adult value. Normal values for children and adolescents are 2 to 3 times the normal adult value. Total Protein 6.0-8.2 Normal (applies to non-numeric re sults) [facility] Albumin Level 3.4-5.0 Normal (applies to non-numeric re sults) [facility] ID Date Data Source [id number] 01/12/2020 07:34:00 AM [facility] Name Value Range Interpretation Code Description Data Keysha rce(s) Supporting Document(s) Thyroid Stimulate Hormone TSH 0.358-3.74 No rmal (applies to non-numeric results) [facility] ID Date Data Source [id number] 01/11/2020 02:26:00 PM [facility] Name Value Range Interpretation Code Description Data Keysha rce(s) Supporting Document(s) CEA result 0.2-5.0 Normal (applies to non-numeric resul ts) [facility] % Distribution of CEA 0 - [...] be used interchangeably. ID Date Data Source [id number] 01/11/2020 01:55:00 PM [facility] Name Value Range Interpretation Code Description Data Keysha rce(s) Supporting Document(s) CEA 0.2-5.0 Normal (applies to non-numeric results) [facility] % Distribution of CEA 0 - [...] be used interchangeably. ID Date Data Source [id number] 01/11/2020 09:49:00 AM [facility] Name Value Range Interpretation Code Description Data Keysha rce(s) Supporting Document(s) White Blood Count 3.5-10.5 Normal (applies to non-numeri c results) [facility] Red Blood Count 4.30-5.70 Below low normal [facility] Hemoglobin 13.5-17.5 Below low normal [facility] Hematocrit 38.8-50.0 Below low normal [facility] Mean Corpuscular Volume 81.2-95.1 Normal (applies to non- numeric results) [facility] Mean Corpuscular Hgb 25.6-32.2 Normal (applies to non-num martha results) [facility] Mean Corpuscular Hgb Conc 32.0-36.0 Normal (applies to no n-numeric results) [facility] Red Cell Distribution Width 11.8-15.6 Normal (appli es to non-numeric results) [facility] Platelet Count 212 x10 3/uL 150-450 Normal (applies to non-numeric results) [facility] Mean Platelet Volume 9.4-12.4 Below low normal [facility] Neutrophils% (Auto) 31.0-71.0 Normal (applies to non-nume tita results) [facility] Lymphocytes% (Auto) 20.0-55.0 Normal (applies to non-nume tita results) [facility] Monocytes% (Auto) 4.0-12.0 Normal (applies to non-numeri c results) [facility] Eosinophils% (Auto) 1.0-8.0 Normal (applies to non-nume tita results) [facility] Basophils% (Auto) 0.0-2.0 Normal (applies to non-numeri c results) [facility] Immature Granulocytes% (Auto) 0.0-2.0 Normal (raquel lies to non-numeric results) [facility] Neutrophils# (Auto) 1.50-6.20 Normal (applies to non-nume tita results) [facility] Lymphocytes# (Auto) 1.20-4.00 Normal (applies to non-nume tita results) [facility] Monocytes# (Auto) 0.00-0.90 Normal (applies to non-numeri c results) [facility] Eosinophils# (Auto) 0.00-0.50 Normal (applies to non-nume tita results) [facility] Basophils# (Auto) 0.00-0.20 Normal (applies to non-numeri c results) [facility] Immature Granulocytes# (Auto) 0.00-7.00 No rmal (applies to non-numeric results) [facility] ID Date Data Source [id number] 12/21/2019 03:05:00 PM [facility] Name Value Range Interpretation Code Description Data Keysha rce(s) Supporting Document(s) CEA result 0.2-5.0 Normal (applies to non-numeric resul ts) [facility] % Distribution of CEA 0 - 2.5 in 98.2% of nonsmokers and 87.3% of smokers 2.6 - 5.0 in 1.8% of non-smokers and 8.0% of smokers Serum CEA concentrations should not be interpreted as absolute evidence for the presence or absence of malignant disease. Assayed utilizing the [employer] chemiluminometric technology. Values obtained by using different assay methods cannot be used interchangeably. ID Date Data Source [id number] 12/21/2019 02:19:00 PM [facility] Name Value Range Interpretation Code Description Data Keysha rce(s) Supporting Document(s) CEA 0.2-5.0 Normal (applies to non-numeric results) [facility] % Distribution of CEA 0 - [...] be used interchangeably. ID Date Data Source [id number] 12/21/2019 09:51:00 AM [facility] Name Value Range Interpretation Code Description Data Keysha rce(s) Supporting Document(s) Sodium 140 mmol/L 136-145 Normal (applies to non-numeric resul ts) [facility] Potassium 3.5-5.1 Normal (applies to non-numeric resul ts) [facility] Chloride 104 mmol/L 98-107 Normal (applies to non-numeric resul ts) [facility] Carbon Dioxide CO2 21-32 Normal (applies to non-numer ic results) [facility] Anion Gap 5.0-16.0 Normal (applies to non-numeric resul ts) [facility] BUN 7 mg/dL 7-18 Normal (applies to non-numeric results) [facility] Creatinine,Serum 0.8-1.5 Normal (applies to non-numeric results) [facility] GFR >60 Normal (applies to non-numeric results) [facility] Glucose Level 143 mg/dL 60-99 Above high normal [facility] Reference range is only applicable when patient is fasting Note the following drug interference: Sulfasalazine Sulfapyridine Can see falsely depressed Can see falsely elevated result with up to 17% results with up to 11% decrease in measurement increase in measurement Recommend patients be collected for this test prior to administration of either drug. Calcium 8.5-10.1 Normal (applies to non-numeric resul ts) [facility] Bilirubin,Total 0.1-1.9 Normal (applies to non-numeric results) [facility] SGOT(AST) 27 U/L 15-37 Normal (applies to non-numeric resul ts) [facility] Note the following drug interference: Sulfasalazine Sulfapyridine Can see falsely depressed Can see falsely elevated result with up to 10% results with up to 10% decrease in measurement increase in measurement Recommend patients be collected for this test prior to administration of either drug. SGPT(ALT) 76 U/L 12-78 Normal (applies to non-numeric resul ts) [facility] Note the following drug interference: Sulfasalazine Sulfapyridine Can see falsely depressed Can see falsely elevated result with up to 29% results with up to 10% decrease in measurement increase in measurement Recommend patients be collected for this test prior to administration of either drug. Alkaline Phosphatase 71 U/L 38-126 Normal (applies to non-num martha results) [facility] can increase Alkaline Phosp le vels up to 2 times the normal adult value. Normal values for children and adolescents are 2 to 3 times the normal adult value. Total Protein 6.0-8.2 Normal (applies to non-numeric re sults) [facility] Albumin Level 3.4-5.0 Normal (applies to non-numeric re sults) [facility] ID Date Data Source [id number] 12/21/2019 09:51:00 AM EST [facility] Name Value Range Interpretation Code Description Data Keysha rce(s) Supporting Document(s) Free T4 (Free Thyroxine) 0.76-1.46 Normal (applies to non -numeric results) [facility] ID Date Data Source [id number] 12/21/2019 09:21:00 AM EST [facility] Name Value Range Interpretation Code Description Data Keysha rce(s) Supporting Document(s) White Blood Count 3.5-10.5 Normal (applies to non-numeri c results) [facility] Red Blood Count 4.30-5.70 Below low normal [facility] Hemoglobin 13.5-17.5 Below low normal [facility] Hematocrit 38.8-50.0 Below low normal [facility] Mean Corpuscular Volume 81.2-95.1 Normal (applies to non- numeric results) [facility] Mean Corpuscular Hgb 25.6-32.2 Normal (applies to non-num martha results) [facility] Mean Corpuscular Hgb Conc 32.0-36.0 Normal (applies to no n-numeric results) [facility] Red Cell Distribution Width 11.8-15.6 Normal (appli es to non-numeric results) [facility] Platelet Count 267 x10 3/uL 150-450 Normal (applies to non-numeric results) [facility] Mean Platelet Volume 9.4-12.4 Below low normal [facility] Neutrophils% (Auto) 31.0-71.0 Normal (applies to non-nume tita results) [facility] Lymphocytes% (Auto) 20.0-55.0 Normal (applies to non-nume tita results) [facility] Monocytes% (Auto) 4.0-12.0 Above high normal [facility] Eosinophils% (Auto) 1.0-8.0 Normal (applies to non-nume tita results) [facility] Basophils% (Auto) 0.0-2.0 Normal (applies to non-numeri c results) [facility] Immature Granulocytes% (Auto) 0.0-2.0 Normal (raquel lies to non-numeric results) [facility] Neutrophils# (Auto) 1.50-6.20 Normal (applies to non-nume tita results) [facility] Lymphocytes# (Auto) 1.20-4.00 Normal (applies to non-nume tita results) [facility] Monocytes# (Auto) 0.00-0.90 Above high normal [facility] Eosinophils# (Auto) 0.00-0.50 Normal (applies to non-nume tita results) [facility] Basophils# (Auto) 0.00-0.20 Normal (applies to non-numeri c results) [facility] Immature Granulocytes# (Auto) 0.00-7.00 No rmal (applies to non-numeric results) [facility] ID Date Data Source [id number] 11/30/2019 10:59:00 AM EST [facility] Name Value Range Interpretation Code Description Data Keysha rce(s) Supporting Document(s) Sodium 141 mmol/L 136-145 Normal (applies to non-numeric resul ts) [facility] Potassium 3.5-5.1 Normal (applies to non-numeric resul ts) [facility] Chloride 103 mmol/L 98-107 Normal (applies to non-numeric resul ts) [facility] Carbon Dioxide CO2 21-32 Normal (applies to non-numer ic results) [facility] Anion Gap 5.0-16.0 Normal (applies to non-numeric resul ts) [facility] BUN 7 mg/dL 7-18 Normal (applies to non-numeric results) [facility] Creatinine,Serum 0.8-1.5 Normal (applies to non-numeric results) [facility] GFR >60 Normal (applies to non-numeric results) [facility] Glucose Level 145 mg/dL 60-99 Above high normal [facility] Reference range is only applicable when patient is fasting Note the following drug interference: Sulfasalazine Sulfapyridine Can see falsely depressed Can see falsely elevated result with up to 17% results with up to 11% decrease in measurement increase in measurement Recommend patients be collected for this test prior to administration of either drug. Calcium 8.5-10.1 Normal (applies to non-numeric resul ts) [facility] Bilirubin,Total 0.1-1.9 Normal (applies to non-numeric results) [facility] SGOT(AST) 23 U/L 15-37 Normal (applies to non-numeric resul ts) [facility] Note the following drug interference: Sulfasalazine Sulfapyridine Can see falsely depressed Can see falsely elevated result with up to 10% results with up to 10% decrease in measurement increase in measurement Recommend patients be collected for this test prior to administration of either drug. SGPT(ALT) 84 U/L 12-78 Above high normal [facility] Note the following drug interference: Sulfasalazine Sulfapyridine Can see falsely depressed Can see falsely elevated result with up to 29% results with up to 10% decrease in measurement increase in measurement Recommend patients be collected for this test prior to administration of either drug. Alkaline Phosphatase 78 U/L 38-126 Normal (applies to non-num martha results) [facility] can increase Alkaline Phosp le vels up to 2 times the normal adult value. Normal values for children and adolescents are 2 to 3 times the normal adult value. Total Protein 6.0-8.2 Normal (applies to non-numeric re sults) [facility] Albumin Level 3.4-5.0 Normal (applies to non-numeric re sults) [facility] ID Date Data Source [id number] 11/30/2019 10:59:00 AM EST [facility] Name Value Range Interpretation Code Description Data Keysha rce(s) Supporting Document(s) Thyroid Stimulate Hormone TSH 0.358-3.74 No rmal (applies to non-numeric results) [facility] ID Date Data Source [id number] 11/30/2019 10:59:00 AM EST [facility] Name Value Range Interpretation Code Description Data Keysha rce(s) Supporting Document(s) Free T4 (Free Thyroxine) 0.76-1.46 Normal (applies to non -numeric results) [facility] ID Date Data Source [id number] 11/30/2019 09:55:00 AM EST [facility] Name Value Range Interpretation Code Description Data Keysha rce(s) Supporting Document(s) White Blood Count 3.5-10.5 Normal (applies to non-numeri c results) [facility] Red Blood Count 4.30-5.70 Normal (applies to non-numeric results) [facility] Hemoglobin 13.5-17.5 Below low normal [facility] Hematocrit 38.8-50.0 Normal (applies to non-numeric resul ts) [facility] Mean Corpuscular Volume 81.2-95.1 Normal (applies to non- numeric results) [facility] Mean Corpuscular Hgb 25.6-32.2 Normal (applies to non-num martha results) [facility] Mean Corpuscular Hgb Conc 32.0-36.0 Normal (applies to no n-numeric results) [facility] Red Cell Distribution Width 11.8-15.6 Normal (appli es to non-numeric results) [facility] Platelet Count 341 x10 3/uL 150-450 Normal (applies to non-numeric results) [facility] Mean Platelet Volume 9.4-12.4 Below low normal [facility] Neutrophils% (Auto) 31.0-71.0 Normal (applies to non-nume tita results) [facility] Lymphocytes% (Auto) 20.0-55.0 Normal (applies to non-nume tita results) [facility] Monocytes% (Auto) 4.0-12.0 Above high normal [facility] Eosinophils% (Auto) 1.0-8.0 Normal (applies to non-nume tita results) [facility] Basophils% (Auto) 0.0-2.0 Normal (applies to non-numeri c results) [facility] Immature Granulocytes% (Auto) 0.0-2.0 Normal (raquel lies to non-numeric results) [facility] Neutrophils# (Auto) 1.50-6.20 Normal (applies to non-nume tita results) [facility] Lymphocytes# (Auto) 1.20-4.00 Above high normal [facility] Monocytes# (Auto) 0.00-0.90 Above high normal [facility] Eosinophils# (Auto) 0.00-0.50 Normal (applies to non-nume tita results) [facility] Basophils# (Auto) 0.00-0.20 Normal (applies to non-numeri c results) [facility] Immature Granulocytes# (Auto) 0.00-7.00 No rmal (applies to non-numeric results) [facility] ID Date Data Source [id number] 11/13/2019 02:43:00 PM [facility] spital Pending Campylobacter: Not detected C.difficile [...] rce(s) Supporting Document(s) ID Date Data Source [id number] 11/12/2019 05:40:00 PM [facility] Collected By: Nurse Initials: pc Time Collected: 1732 Name Value Range Interpretation Code Description Data Keysha rce(s) Supporting Document(s) Color,Urine Colorl-Dk Y Normal (applies to non-numeric res ults) [facility] Clarity,Urine Clear Normal (applies to non-numeric re sults) [facility] Specific [place],Urine 1.015-1.025 Normal (applies to non- numeric results) [facility] pH,Urine 5.0-7.0 Normal (applies to non-numeric resul ts) [facility] Protein,Urine Negative Normal (applies to non-numeric re sults) [facility] Gl[facility],Urine Negative [facility] Ketones,Urine Negative Normal (applies to non-numeric re sults) [facility] Blood,Urine Negative Normal (applies to non-numeric resu lts) [facility] Bilirubin,Urine Negative Normal (applies to non-numeric results) [facility] Urobilinogen,Urine Normal Normal (applies to non-numer ic results) [facility] Leukocyte Esterase,Urine Negative Normal (applies to non -numeric results) [facility] Nitrite,Urine Negative Normal (applies to non-numeric re sults) [facility] ID Date Data Source [id number] 11/18/2019 01:21:00 AM EST [facility] NO GROWTH AFTER 120 HOURS (5 Days) Proc edure Performed By: [facility] [address] [place] [address] Director: Gino Davila Name Value Range Interpretation Code Description Data Keysha rce(s) Supporting Document(s) ID Date Data Source [id number] 11/17/2019 08:43:00 PM EST [facility] NO GROWTH AFTER 120 HOURS (5 Days) Pr ocedure Performed By: [facility] [address] [place] [address] Director: Gino Davila Name Value Range Interpretation Code Description Data Keysha rce(s) Supporting Document(s) ID Date Data Source [id number] 11/18/2019 01:21:00 AM EST [facility] NO GROWTH AFTER 120 HOURS (5 Days) Proc edure Performed By: [facility] [address] [place] [address] Director: Gino Davila Name Value Range Interpretation Code Description Data Keysha rce(s) Supporting Document(s) ID Date Data Source [id number] 11/17/2019 08:43:[address] [facility] NO GROWTH AFTER 120 HOURS (5 Days) Pr ocedure Performed By: [facility] [address] [place] [address] Director: Gino Davila Name Value Range Interpretation Code Description Data Keysha rce(s) Supporting Document(s) ID Date Data Source [id number] 11/12/2019 05:25:00 PM [facility] Name Value Range Interpretation Code Description Data Keysha rce(s) Supporting Document(s) PT 9.2-11.7 Normal (applies to non-numeric results) [facility] INR Normal (applies to non-numeric results) [facility] The use of INR is restricted to patients on stable oral anticoagulant. Therapeutic Range: 2.0 - 3.0 High Risk Range: 2.5 - 3.5 ID Date Data Source [id number] 11/12/2019 05:25:00 PM [facility] Name Value Range Interpretation Code Description Data Keysha rce(s) Supporting Document(s) PTT 23.8-37.9 Normal (applies to non-numeric results) [facility] ID Date Data Source [id number] 11/12/2019 05:15:00 PM [facility] Name Value Range Interpretation Code Description Data Keysha rce(s) Supporting Document(s) Lactic Acid 0.4-2.0 Normal (applies to non-numeric resu lts) [facility] ID Date Data Source [id number] 11/12/2019 04:59:00 PM [facility] Name Value Range Interpretation Code Description Data Keysha rce(s) Supporting Document(s) Sodium 135 mmol/L 136-145 Below low normal [facility] Potassium 3.5-5.1 Normal (applies to non-numeric resul ts) [facility] Chloride 100 mmol/L 98-107 Normal (applies to non-numeric resul ts) [facility] Carbon Dioxide CO2 21-32 Normal (applies to non-numer ic results) [facility] Anion Gap 5.0-16.0 Normal (applies to non-numeric resul ts) [facility] BUN 14 mg/dL 7-18 Normal (applies to non-numeric results) [facility] Creatinine,Serum 0.8-1.5 Normal (applies to non-numeric results) [facility] GFR >60 Normal (applies to non-numeric results) [facility] Glucose Level 163 mg/dL 60-99 Above high normal [facility] Reference range is only applicable when patient is fasting Note the following drug interference: Sulfasalazine Sulfapyridine Can see falsely depressed Can see falsely elevated result with up to 17% results with up to 11% decrease in measurement increase in measurement Recommend patients be collected for this test prior to administration of either drug. Calcium 8.5-10.1 Below low normal [facility] Bilirubin,Total 0.1-1.9 Normal (applies to non-numeric results) [facility] SGOT(AST) 39 U/L 15-37 Above high normal [facility] Note the following drug interference: Sulfasalazine Sulfapyridine Can see falsely depressed Can see falsely elevated result with up to 10% results with up to 10% decrease in measurement increase in measurement Recommend patients be collected for this test prior to administration of either drug. SGPT(ALT) 113 U/L 12-78 Above high normal [facility] Note the following drug interference: Sulfasalazine Sulfapyridine Can see falsely depressed Can see falsely elevated result with up to 29% results with up to 10% decrease in measurement increase in measurement Recommend patients be collected for this test prior to administration of either drug. Alkaline Phosphatase 61 U/L 38-126 Normal (applies to non-num martha results) [facility] can increase Alkaline Phosp le vels up to 2 times the normal adult value. Normal values for children and adolescents are 2 to 3 times the normal adult value. Total Protein 6.0-8.2 Normal (applies to non-numeric re sults) [facility] Albumin Level 3.4-5.0 Normal (applies to non-numeric re sults) [facility] ID Date Data Source [id number] 11/12/2019 05:00:00 PM [facility] Name Value Range Interpretation Code Description Data Keysha rce(s) Supporting Document(s) Troponin I 0.000-0.056 Normal (applies to non-numeric resu lts) [facility] ID Date Data Source [id number] 11/12/2019 05:00:00 PM [facility] Name Value Range Interpretation Code Description Data Keysha rce(s) Supporting Document(s) Amylase 60 U/L 25-115 Normal (applies to non-numeric resul ts) [facility] ID Date Data Source [id number] 11/12/2019 05:00:00 PM [facility] Name Value Range Interpretation Code Description Data Keysha rce(s) Supporting Document(s) Lipase 140 U/L 73-393 Normal (applies to non-numeric resul ts) [facility] ID Date Data Source [id number] 11/12/2019 04:54:00 PM [facility] Name Value Range Interpretation Code Description Data Keysha rce(s) Supporting Document(s) White Blood Count 3.5-10.5 Normal (applies to non-numeri c results) [facility] Red Blood Count 4.30-5.70 Normal (applies to non-numeric results) [facility] Hemoglobin 13.5-17.5 Below low normal [facility] Hematocrit 38.8-50.0 Normal (applies to non-numeric resul ts) [facility] Mean Corpuscular Volume 81.2-95.1 Normal (applies to non- numeric results) [facility] Mean Corpuscular Hgb 25.6-32.2 Normal (applies to non-num martha results) [facility] Mean Corpuscular Hgb Conc 32.0-36.0 Normal (applies to no n-numeric results) [facility] Red Cell Distribution Width 11.8-15.6 Normal (appli es to non-numeric results) [facility] Platelet Count 122 x10 3/uL 150-450 Below low normal [facility] Slide has been reviewed and findings con firmed by a technologist/medical equipment repair technician. Mean Platelet Volume 9.4-12.4 Below low normal [facility] Neutrophils% (Auto) 31.0-71.0 Normal (applies to non-nume tita results) [facility] Lymphocytes% (Auto) 20.0-55.0 Normal (applies to non-nume tita results) [facility] Monocytes% (Auto) 4.0-12.0 Normal (applies to non-numeri c results) [facility] Eosinophils% (Auto) 1.0-8.0 Below low normal [facility] Basophils% (Auto) 0.0-2.0 Normal (applies to non-numeri c results) [facility] Immature Granulocytes% (Auto) 0.0-2.0 Normal (raquel lies to non-numeric results) [facility] Neutrophils# (Auto) 1.50-6.20 Normal (applies to non-nume tita results) [facility] Lymphocytes# (Auto) 1.20-4.00 Normal (applies to non-nume tita results) [facility] Monocytes# (Auto) 0.00-0.90 Normal (applies to non-numeri c results) [facility] Eosinophils# (Auto) 0.00-0.50 Normal (applies to non-nume tita results) [facility] Basophils# (Auto) 0.00-0.20 Normal (applies to non-numeri c results) [facility] Immature Granulocytes# (Auto) 0.00-7.00 No rmal (applies to non-numeric results) [facility] ID Date Data Source [id number] 11/13/2019 07:09:00 AM EST [facility] Imaging Services Department Imaging Report [address] [place] [id number] %(RAD)RES..mtdd.print.filter("line") Name: MAMTA YORK : 1970 Age/Sex: 48M Ordering Provider: Efe Quispe MD Med Rec #: [id number] Reg Status: [facility] Room #: Date of Service: 11/12/19 Report Number: [id number] cc:Kole Perez NP Send Report To: [id number] CT/CT Abdomen & Pelvis No Contras Reason [...] Date/Time: 11/12/19 1740 Transcribed Date/Time: 11/13/19 0709 Hedis Review Nurse: TESSIE Name Value Range Interpretation Code Description Data Keysha rce(s) Supporting Document(s) ID Date Data Source [id number] 11/13/2019 08:48:00 AM [facility] Imaging Services Department Imaging Report [address] [place] [id number] %(RAD)RES..mtdd.print.filter("line") Name: JAYLENMAMTA S : 1970 Age/Sex: 48M Ordering Provider: Efe Quispe MD Med Rec #: [id number] Reg Status: [facility] Room #: Date of Service: 11/12/19 Report Number: [id number] cc:Kole Perez NP Send Report To: [id number] XRP/XR Chest Xray Portable Reason for exam: [...] Date/Time: 11/12/19 1643 Transcribed Date/Time: 11/13/19 0848 Hedis Review Nurse: MICHAEL Name Value Range Interpretation Code Description Data [facility] Districte(s) Supporting Document(s) ID Date Data Source [id number] 11/12/2019 04:47:[address] [facility] Method performed by Isothermal Nucle ic Acid [...] Name Value Range Interpretation Code Description Data [facility] Districte(s) Supporting Document(s) ID Date Data Source [id number] 11/13/2019 02:34:00 PM EST [facility] Methodology: Multiplexed PCR Refer ence Range: None detected Name Value Range Interpretation Code Description Data [facility] Districte(s) Supporting Document(s) ID Date Data Source [id number] 10/19/2019 03:32:00 PM [facility] Name Value Range Interpretation Code Description Data Keysha rce(s) Supporting Document(s) CEA result 0.2-5.0 [facility] % Distribution of CEA 0 [...] be used interchangeably. ID Date Data Source [id number] 10/19/2019 03:24:00 PM [facility] Name Value Range Interpretation Code Description Data Keysha rce(s) Supporting Document(s) CEA 0.2-5.0 Above high normal [facility] % Distribution of CEA 0 - 2.5 [...] be used interchangeably. ID Date Data Source [id number] 10/19/2019 02:28:00 PM [facility] Name Value Range Interpretation Code Description Data Keysha rce(s) Supporting Document(s) Sodium 140 mmol/L 136-145 Normal (applies to non-numeric resul ts) [facility] Potassium 3.5-5.1 Normal (applies to non-numeric resul ts) [facility] Chloride 100 mmol/L 98-107 Normal (applies to non-numeric resul ts) [facility] Carbon Dioxide CO2 21-32 Normal (applies to non-numer ic results) [facility] Anion Gap 5.0-16.0 Normal (applies to non-numeric resul ts) [facility] BUN 9 mg/dL 7-18 Normal (applies to non-numeric results) [facility] Creatinine,Serum 0.8-1.5 Normal (applies to non-numeric results) [facility] GFR >60 Normal (applies to non-numeric results) [facility] Glucose Level 133 mg/dL 60-99 Above high normal [facility] Reference range is only applicable when patient is fasting Note the following drug interference: Sulfasalazine Sulfapyridine Can see falsely depressed Can see falsely elevated result with up to 17% results with up to 11% decrease in measurement increase in measurement Recommend patients be collected for this test prior to administration of either drug. Calcium 8.5-10.1 Normal (applies to non-numeric resul ts) [facility] Bilirubin,Total 0.1-1.9 Normal (applies to non-numeric results) [facility] SGOT(AST) 16 U/L 15-37 Normal (applies to non-numeric resul ts) [facility] Note the following drug interference: Sulfasalazine Sulfapyridine Can see falsely depressed Can see falsely elevated result with up to 10% results with up to 10% decrease in measurement increase in measurement Recommend patients be collected for this test prior to administration of either drug. SGPT(ALT) 56 U/L 12-78 Normal (applies to non-numeric resul ts) [facility] Note the following drug interference: Sulfasalazine Sulfapyridine Can see falsely depressed Can see falsely elevated result with up to 29% results with up to 10% decrease in measurement increase in measurement Recommend patients be collected for this test prior to administration of either drug. Alkaline Phosphatase 73 U/L 38-126 Normal (applies to non-num martha results) [facility] can increase Alkaline Phosp le vels up to 2 times the normal adult value. Normal values for children and adolescents are 2 to 3 times the normal adult value. Total Protein 6.0-8.2 Normal (applies to non-numeric re sults) [facility] Albumin Level 3.4-5.0 Normal (applies to non-numeric re sults) [facility] ID Date Data Source [id number] 10/19/2019 02:28:00 PM EST [facility] Name Value Range Interpretation Code Description Data Keysha rce(s) Supporting Document(s) Thyroid Stimulate Hormone TSH 0.358-3.740 No rmal (applies to non-numeric results) [facility] ID Date Data Source [id number] 10/19/2019 02:28:00 PM EST [facility] Name Value Range Interpretation Code Description Data Keysha rce(s) Supporting Document(s) Free T4 (Free Thyroxine) 0.76-1.46 Normal (applies to non -numeric results) [facility] ID Date Data Source [id number] 10/19/2019 09:42:00 AM EST [facility] Name Value Range Interpretation Code Description Data Keysha rce(s) Supporting Document(s) White Blood Count 3.5-10.5 Above high normal [facility] Red Blood Count 4.30-5.70 Normal (applies to non-numeric results) [facility] Hemoglobin 13.5-17.5 Below low normal [facility] ospital Hematocrit 38.8-50.0 Normal (applies to non-numeric resul ts) [facility] Mean Corpuscular Volume 81.2-95.1 Normal (applies to non- numeric results) [facility] Mean Corpuscular Hgb 25.6-32.2 Normal (applies to non-num martha results) [facility] Mean Corpuscular Hgb Conc 32.0-36.0 Normal (applies to no n-numeric results) [facility] Red Cell Distribution Width 11.8-15.6 Normal (appli es to non-numeric results) [facility] Platelet Count 396 x10 3/uL 150-450 Normal (applies to non-numeric results) [facility] Mean Platelet Volume 9.4-12.4 Below low normal [facility] Neutrophils% (Auto) 31.0-71.0 Normal (applies to non-nume tita results) [facility] Lymphocytes% (Auto) 20.0-55.0 Normal (applies to non-nume tita results) [facility] Monocytes% (Auto) 4.0-12.0 Normal (applies to non-numeri c results) [facility] Eosinophils% (Auto) 1.0-8.0 Above high normal [facility] Basophils% (Auto) 0.0-2.0 Normal (applies to non-numeri c results) [facility] Immature Granulocytes% (Auto) 0.0-2.0 Normal (raquel lies to non-numeric results) [facility] Neutrophils# (Auto) 1.50-6.20 Normal (applies to non-nume tita results) [facility] Lymphocytes# (Auto) 1.20-4.00 Above high normal [facility] Monocytes# (Auto) 0.00-0.90 Above high normal [facility] Eosinophils# (Auto) 0.00-0.50 Above high normal [facility] Basophils# (Auto) 0.00-0.20 Normal (applies to non-numeri c results) [facility] Immature Granulocytes# (Auto) 0.00-7.00 No rmal (applies to non-numeric results) [facility] Slide has been reviewed and findings con firmed by a technologist/medical equipment repair technician. ID Date Data Source [id number] 10/19/2019 01:40:00 PM EST [facility] Imaging Services Department Imaging Report [address] [place], [place] [id number] %(RAD)RES..mtdd.print.filter("line") Name: JAYLENMAMTA S : 1970 Age/Sex: 48M Ordering Provider: Kristel Campos MD Med Rec #: [id number] Reg Status: DEP REF Room #: Date of Service: 10/19/19 Report Number: [id number] cc:Kristel Campos MD; Kole Perez NP Send Report To: [id number] US/US Dup Upper Ext Veins Rt Reason [...] Date/Time: 10/19/19 1333 Transcribed Date/Time: 10/19/19 1340 Hedis Review Nurse: TESSIE Name Value Range Interpretation Code Description Data Keysha rce(s) Supporting Document(s) ID Date Data Source [id number] 10/19/2019 01:50:00 PM [facility] Imaging Services Department Imaging Report [address] [place], [place] [address] %(RAD)RES..mtdd.print.filter("line") Name: MAMTA YORK : 1970 Age/Sex: 48M Ordering Provider: Kristel Campos MD Med Rec #: [id number] Reg Status: [facility] Room #: Date of Service: 10/19/19 Report Number: [id number] cc:Kristel Campos MD; Kole Perez NP Send Report To: [id number] US/US Soft Tissue Head/Neck Reason for exam: [...] Date/Time: 10/19/19 1330 Transcribed Date/Time: 10/19/19 1350 Hedis Review Nurse: TESSIE Name Value Range Interpretation Code Description Data Keysha rce(s) Supporting Document(s) Procedure Social History Code Duration Value Status Description Data Source(s ) Smoking 03/15/2020 12:00:00 AM EDT - 11/04/2018 12:00:00 AM EST Patient is a former smoker completed Patient is a former smoker [facility] ([facility]) Vital Signs ID Date Data Source UNK Name Value Range Interpretation Code Description Data Source(s) Body weight 109.771 kg 109.771 kg [facility] ([facility]) Body mass index (BMI) [Ratio] 35.7 kg/m2 35.7 k g/m2 [facility] ([facility]) Body weight 242.00 [lb_av] 242.00 [lb_av] [facility] ([facility]) Body height 69 [in_i] 69 [in_i] [facility] ([facility]) 5'9" Body temperature 96.9 [degF] 96.9 [degF] [facility] ([facility]) Oxygen saturation in Arterial blood by Pulse oximetry 97 % 97 % [facility] ([facility]) Heart rate 93 /min 93 /min [facility] ([facility]) Diastolic blood pressure 70 mm[Hg] 70 mm[Hg] [facility] ([facility]) Systolic blood pressure 130 mm[Hg] 130 mm[Hg] M [facility] ([facility]) Body weight 102.060 kg 102.060 kg [facility] ([facility]) Body mass index (BMI) [Ratio] 33.2 kg/m2 33.2 k g/m2 [facility]) Body weight 225.00 [lb_av] 225.00 [lb_av] [facility] ([facility]) Body height 69 [in_i] 69 [in_i] [facility] ([facility]) 5'9" Oxygen saturation in Arterial blood by Pulse oximetry 99 % 99 % [facility] ([facility]) Heart rate 105 /min 105 /min [facility] ([facility]) Diastolic blood pressure 82 mm[Hg] 82 mm[Hg] [facility] ([facility]) Systolic blood pressure 102 mm[Hg] 102 mm[Hg] [facility] ID Date Data Source [id number] 09/18/2020 03:11:00 PM EST [facility] Name Value Range Interpretation Code Description Data Source(s) Weight Measurement Method 8 8 [facility] Weight [address] [facility] Temperature Source 7 7 [facility] Temperature [address] [facility] Respiratory Effort 1 1 [facility] Respiratory Rate 17 17 [facility] Pulse Assessment Method 4 4 [facility] Pulse Rate 130 130 [facility] pital Height [address] [facility] Blood Pressure 129/91 129/91 [facility] Weight Measurement Method 8 8 [facility] Weight 3808 3808 [facility] pital Temperature Source 7 7 [facility] Temperature 97.5 97.5 [facility] spital Respiratory Effort 1 1 [facility] Respiratory Rate 17 17 [facility] Pulse Assessment Method 4 4 [facility] Pulse Rate 134 134 [facility] pital Height [address] [facility] Blood Pressure 129/91 129/91 [facility] ID Date Data Source [id number] 05/06/2020 05:16:00 PM EDT [facility] Name Value Range Interpretation Code Description Data Source(s) Weight (Calculated Kilograms) 102.06 102.06 [facility] Height (Calculated Centimeters) 172.72 172. 72 [facility] Body Mass Index (BMI) 34.2 34.2 [facility] ID Date Data Source [id number] 04/26/2020 10:06:00 AM EDT [facility] spital Name Value Range Interpretation Code Description Data Source(s) Weight Measurement Method 8 8 [facility] Weight 3904 3904 [facility] pital Temperature Source 7 7 [facility] Temperature 98.1 98.1 [facility] spital Respiratory Effort 1 1 [facility] Respiratory Rate 18 18 [facility] Pulse Assessment Method 4 4 [facility] Pulse Rate 118 118 [facility] pital Height 69 69 [facility] pital Blood Pressure 118/96 118/96 [facility] Weight Measurement Method 8 8 [facility] Weight 3904 3904 [facility] pital Temperature Source 7 7 [facility] Temperature 98.1 98.1 [facility] spital Respiratory Effort 1 1 [facility] Respiratory Rate 18 18 [facility] Pulse Assessment Method 4 4 [facility] Pulse Rate 118 118 [facility] pital Height [address] [facility] Blood Pressure 118/96 118/96 [facility] ID Date Data Source [id number] 02/01/2020 08:14:00 PM EDT [facility] Name Value Range Interpretation Code Description Data Source(s) Weight (Calculated Kilograms) 102.06 102.06 [facility] Height (Calculated Centimeters) 172.72 172. 72 [facility] Body Mass Index (BMI) 34.2 34.2 [facility] ID Date Data Source [id number] 01/11/2020 01:55:00 PM EDT [facility] Name Value Range Interpretation Code Description Data Source(s) Weight (Calculated Kilograms) 102.06 102.06 [facility] Height (Calculated Centimeters) 172.72 172. 72 [facility] Body Mass Index (BMI) 34.2 34.2 [facility] ID Date Data Source [id number] 12/21/2019 02:19:00 PM EST [facility] Name Value Range Interpretation Code Description Data Source(s) Weight (Calculated Kilograms) 102.06 102.06 [facility] Height (Calculated Centimeters) 172.72 172. 72 [facility] Body Mass Index (BMI) 34.2 34.2 [facility] ID Date Data Source [id number] 11/13/2019 02:34:00 PM EST [facility] Name Value Range Interpretation Code Description Data Source(s) Weight (Calculated Kilograms) 102.06 102.06 [facility] Height (Calculated Centimeters) 172.72 172. 72 [facility] Body Mass Index (BMI) 34.2 34.2 [facility] ID Date Data Source [id number] 11/17/2019 08:43:00 PM EST [facility] Name Value Range Interpretation Code Description Data Source(s) Weight (Calculated Kilograms) 102.06 102.06 [facility] Height (Calculated Centimeters) 172.72 172. 72 [facility] Body Mass Index (BMI) 34.2 34.2 [facility] ID Date Data Source [id number] 12/14/2019 01:02:00 PM EST [facility] spital Name Value Range Interpretation Code Description Data Source(s) Weight Measurement Method 8 8 [facility] Weight [address] [facility] Temperature Source 7 7 [facility] Temperature 98.3 98.3 [facility] spital Respiratory Effort 1 1 [facility] Respiratory Rate 18 18 [facility] Pulse Assessment Method 4 4 [facility] Pulse Rate 112 112 [facility] pital Height [address] [facility] Blood Pressure 150/60 150/60 [facility] Weight Measurement Method 8 8 [facility] Weight [address] [facility] Temperature Source 7 7 [facility] Temperature 98.3 98.3 [facility] spital Respiratory Effort 1 1 [facility] Respiratory Rate 18 18 [facility] Pulse Assessment Method 4 4 [facility] Pulse Rate 112 112 [facility] pital Height [address] [facility] Blood Pressure 150/60 150/60 [facility] Weight Measurement Method 8 8 [facility] Weight 3680 3680 [facility] pital Temperature Source 7 7 [facility] Temperature 98.3 98.3 [facility] spital Respiratory Effort 1 1 [facility] Respiratory Rate 16 16 [facility] Pulse Assessment Method 4 4 [facility] Pulse Rate 116 116 [facility] pital Height 69 69 [facility] pital Blood Pressure 112/63 112/63 [facility] Weight Measurement Method 8 8 [facility] Weight 3680 3680 [facility] pital Temperature Source 7 7 [facility] Temperature 98.3 98.3 [facility] spital Respiratory Effort 1 1 [facility] Respiratory Rate 16 16 [facility] Pulse Assessment Method 4 4 [facility] Pulse Rate 108 108 [facility] pital Height 69 69 [facility] pital Blood Pressure 117/80 117/80 [facility] ID Date Data Source [id number] 10/19/2019 03:24:[address] [facility] Name Value Range Interpretation Code Description Data Source(s) Weight (Calculated Kilograms) 102.06 102.06 [facility] Height (Calculated Centimeters) 172.72 172. 72 [facility] Body Mass Index (BMI) 34.2 34.2 [facility]
[2020-11-21 15:29] LABS: HEMATOCRIT 32.5 % (42.0-52.0); HEMOGLOBIN 10.1 g/dl (13.5-17.5); MEAN CORPUSCULAR HEMOGLOBIN 29.2 pg (27.0-33.0); MEAN CORPUSCULAR HGB CONC 31.1 g/dl (32.0-36.5); MEAN CORPUSCULAR VOLUME 93.9 fl (80.0-96.0); PLATELET COUNT, AUTOMATED 372 10^3/uL (150-450); RED BLOOD COUNT 3.46 10^6/uL (4.30-6.10); WHITE BLOOD COUNT 11.9 10^3/uL (4.0-10.0)
[2020-11-21] MEDS ORDERED: NS 500 ML IV ONE (15:30)
[2020-11-21 15:43] LABS: INR 1.21; PROTHROMBIN TIME 15.5 SECONDS (12.5-14.3)
[2020-11-21 15:59] LABS: LYMPHOCYTES 16 % (16-44); METAMYELOCYTES 1 % (0-0); MONOCYTES 3 % (0-5); NEUTROPHILS 75 % (28-66); PLATELET ESTIMATE NORMAL (NORMAL)
[2020-11-21 16:06] LABS: ALBUMIN 2.9 GM/DL (3.2-5.2); ALT/SGPT 43 U/L (12-78); BILIRUBIN,DIRECT 0.2 MG/DL (0.0-0.2); BILIRUBIN,TOTAL 1.2 MG/DL (0.2-1.0); BLOOD UREA NITROGEN 11 MG/DL (7-18); CALCIUM LEVEL 9.4 MG/DL (8.5-10.1); CARBON DIOXIDE LEVEL 24 MEQ/L (21-32); CHLORIDE LEVEL 98 MEQ/L (98-107); CK-MB VALUE MASS < 1.0 NG/ML (<3.6); CPK CREATINE PHOSPHOKINASE 96 U/L (39-308); CREATININE FOR GFR 1.07 MG/DL (0.70-1.30); GLOMERULAR FILTRATION RATE > 60.0 (>60); GLUCOSE, FASTING 283 MG/DL (70-100); LIPASE 35 U/L (73-393); MB/CK RELATIVE INDEX 1.04 (< OR =4); NT-PRO BNP 189 PG/ML (<125); POTASSIUM SERUM 4.6 MEQ/L (3.5-5.1); SODIUM LEVEL 130 MEQ/L (136-145); THYROID STIMULATING HORMONE 0.424 uIU/ML (0.358-3.740); TOTAL PROTEIN 7.1 GM/DL (6.4-8.2); TROPONIN I < 0.02 NG/ML (< 0.10)
[2020-11-21] MEDS ORDERED: PIPERACILLIN/TAZOBACTAM SOD 4.5 GM in D5W MINI-BAG PLUS 50 ML IV ONE (16:15)
[2020-11-21] MEDS ORDERED: IBUPROFEN 600MG TAB PO ONE (16:30)
[2020-11-21] MEDS ORDERED: ISOVUE-370 76% 100ML VIAL As Ordered ONE (16:58)
--- NOTE | 2020-11-21 17:41 | REPVR ---
PROCEDURE INFORMATION: Exam: CT Angiography Chest With Contrast Exam date and time: 11/21/2020 4:12 PM Age: 49 years old Clinical indication: Shortness of breath; Additional info: SOB, fever TECHNIQUE: Imaging protocol: Computed tomographic angiography of the chest with intravenous contrast. 3D rendering (Not supervised by radiologist): MIP and/or 3D reconstructed images were created by the technologist. Radiation optimization: All CT scans at this facility use at least one of these dose optimization techniques: automated exposure control; mA and/or kV adjustment per patient size (includes targeted exams where dose is matched to clinical indication); or iterative reconstruction. Contrast material: ISOVUE 370; Contrast volume: 75 ml; Contrast route: INTRAVENOUS (IV); COMPARISON: CT Chest with contrast 10/17/2020 1:31 PM FINDINGS: Pulmonary arteries: Peripheral pulmonary artery evaluation limited by cardiac and respiratory motion artifact. Central pulmonary arteries show no intraluminal defect suggestive of clot. Aorta: No thoracic aortic aneurysm or dissection. Lungs: There is a cavitary, fluid-filled process at the right lung base containing collections of air and measuring 8 x 7 cm cross-sectional and 8 cm craniocaudal, suggestive of a pulmonary abscess. Right suprahilar consolidation is present with partial airway filling or infiltration. Right upper lobe lung nodule measuring 7 mm is present, as seen on the prior exam. Left lung demonstrates no new or concerning abnormality. Pleural space: Dependent right pleural effusion, moderate in size is present without peripheral enhancement or obvious organization. Heart: No overt cardiac enlargement or abnormal volume of pericardial fluid. Mediastinal nodes: Enlarged mediastinal, right hilar and subcarinal lymph nodes are present and there is a posterior mediastinal large hiatal hernia present. Bones/joints: Bony structures show no acute fracture or destructive process. Soft tissues: Unremarkable. IMPRESSION: 1. Large right lower lobe pulmonary abscess suspected measuring 8 x 7 x 7 cm with adjacent pleural effusion, and lung consolidation suggesting multifocal pneumonia. This has progressed since the prior CT. 2. Underlying mediastinal and right hilar lymphadenopathy which may be reactive or neoplastic. 3. No evidence of acute, central pulmonary embolus. Peripheral pulmonary arterial evaluation is limited by cardiac and respiratory motion artifact. 4. 7 mm right apical lung nodule unchanged over the short interim in terms of size. Fleischner society recommendations for followup and management of nodules smaller than 8 mm detected incidentally on screening CT: 6-8 mm nodule: Low-risk patients- initial followup CT in 6-12 months and then 18-24 months if no change. High risk patients- initial followup CT in 3-6 months and then at 9-12 and 24 months if no change. Electronically signed by: Luís Oliva On 11/21/2020 17:41:27 PM
--- NOTE | 2020-11-21 18:15 | HPEPDOC ---
[facility] Medical History & Physical Date of Admission Nov 21, 2020 Date of Service: Nov 21, 2020 Attending Physician: Tarah Burnette MD History and Physical CHIEF COMPLAINT: Increased SOB HISTORY OF PRESENT ILLNESS: Patient is a 49-year-old male with a past medical history of stage IV lung cancer (specific type unknown), diabetes mellitus, history of clot in the right chest port, hyperlipidemia, insomnia, history of tobacco use, depression who presented to [facility] with 23 days of shortness of breath, coughing, fever, chills at home. He states he also had some loss of taste and loss of appetite over this period of time. The patient states he's had coughing worse with laying down. He denies recent travel, chest pain, nausea, vomiting, diarrhea, sick contacts. Due to worsening shortness of breath the patient came in today to be evaluated. The emergency room vital signs showed temperature 101.9, heart rate 72397 BPM, respiratory rate 18, blood pressure 141/96, 96% on room air. Lactic acid was elevated at 3.5, WBC 11.9, sodium 1:30, blood sugar 283, UA negative. 189, respiratory panel + Rhinovirus/Enterovirus, COVID neg. patient was given Zosyn x 1 IV. CTA chest: 1. Large right lower lobe pulmonary abscess suspected measuring 8 x 7 x 7 cm with adjacent pleural effusion, and lung consolidation suggesting multifocal pneumonia. This has progressed since the prior CT. 2. Underlying mediastinal and right hilar lymphadenopathy which may be reactive or neoplastic. Patient was admitted for further treatment of lung abscess with multifocal PNA, sepsis. REVIEW OF SYSTEMS: Neg except mentioned above PAST MEDICAL HISTORY: Stage IV lung cancer (type unknown) Diabetes mellitus History of blood clot of the right chest port Hyperlipidemia History of tobacco use Depression PAST SURGICAL HISTORY: Right chest port placement FAMILY HISTORY: Father: Cancer, type unknown. at 61 years old Mother: Uterine cancer. at a young age specific unknown SOCIAL HISTORY: Prior smoker for 25 years, 2 packs per day. Quit 2 years ago. Denies alcohol or drug use. Lives with his locally. Follows with , [facility]. PCP is local. He is a full code. ALLERGIES: Please see below. HOME MEDICATIONS: Please see below. PHYSICAL EXAMINATION: VS: 101.9, heart rate 27179 BPM, respiratory rate 18, blood pressure 141/96, 96% on room air. CONSTITUTIONAL: No acute distress, sitting up in bed , AAO x 3 EYES: PERRLA, EOM intact HENT, MOUTH: Normocephalic, atraumatic, moist mucous membranes, NECK: SUPPLE, no JVD, no lymphadenopathy, no carotid bruit CV: Regular rate and rhythm, S1S2 normal, no murmurs/rubs/gallops CHEST: right side chest port RESPIRATORY: Rhonchi bilaterally, decreased breath sounds right posterior-mid lung field. no rales/wheezes GI: BS positive in 4 quadrants, soft, nontender, nondistended, no rebound or guarding, no organomegaly : Deferred MUSCULOSKELETAL: Normal ROM. No cyanosis, clubbing, swelling, joint deformity, extremity edema INTEGUMENTARY: Intact, no rashes, no lesions, no erythema NEUROLOGIC: Cranial Nerves II-XII are intact, no focal deficits PSYCHIATRIC: Mood and affect are normal LABORATORY DATA: Please see below IMAGING: CTA chest: 1. Large right lower lobe pulmonary abscess suspected measuring 8 x 7 x 7 cm with adjacent pleural effusion, and lung consolidation suggesting multifocal pneumonia. This has progressed since the prior CT. 2. Underlying mediastinal and right hilar lymphadenopathy which may be reactive or neoplastic. 3. No evidence of acute, central pulmonary embolus. Peripheral pulmonary arterial evaluation is limited by cardiac and respiratory motion artifact. 4. 7 mm right apical lung nodule unchanged over the short interim in terms of size. Fleischner society recommendations for followup and management of nodules smaller than 8 mm detected incidentally on screening CT: 6-8 mm nodule: Low-risk patients- initial followup CT in 6-12 months and then 18-24 months if no change. High risk patients- initial followup CT in 3-6 months and then at 9-12 and 24 months if no change. ASSESSMENT: 49-year-old male with a past medical history of stage IV lung cancer (specific type unknown), diabetes mellitus, history of clot in the right chest port, hyperlipidemia, insomnia, history of tobacco use, depression admitted for further treatment of lung abscess with multifocal PNA, sepsis. PLAN: Shortness of breath likely multifactorial to Stage IV lung cancer, lung abscess, pleural effusion, multifocal PNA poss bacterial AND viral with Rhinovirus/Ent erovirus confirmed -Currently saturating well on RA -See below for individual treatment plans Lung abscess with multifocal PNA, sepsis -WBC 11.9, fever 101.9, HR 98-150's in ER, LA 3.5 -CT chest above -Resp panel: Rhinovirus/Enterovirus -Discussed with Dr. Gary (pulmonary) who agrees with treatment. Patient used to follow with Dr. Shaw (last visit 03/2020) but we can schedule a follow up with her at discharge to monitor. -F/u sputum culture, blood culture, repeat LA -C/w acapella Q2hrs while awake, Levalbuterol ATC and PRN, Zosyn Q6H, tylenol PRN, IVFs at 125 cc/hr Right side pleural effusion likely 2/2 to abscess, lung CA -CT above -BNP 189 -ED contacted Dr. Duong (CT surgery), no need to tap but to c/w abx for now Stage IV lung cancer (type unknown) -Prior tobacco use, diagnosed 09/2020 -Receiving chemotherapy (kind unknown by patient), last received on 11/15/20 and due for another on 11/22/20 -Follows with Dr. Armijo at [facility], f/u records that were requested Diabetes mellitus -Holding home glipizide, metformin -ISS and FS aC/HS, consistent carb diet History of blood clot of the right chest port -C/w AC Hyperlipidemia -C/w statin Depression -C/w home med DVT px -C/w eliquis daily DISPOSITION: Admitted as acute inpatient. Records requested from [facility]. Plan is discharge home when medically improved. Vital Signs Vital Signs Date Time Temp Pulse Resp B/P (MAP) Pulse Ox O2 Delivery O2 Flow Rate FiO2 11/21/20 17:26 99.9 11/21/20 17:20 128 20 96 Room Air 11/21/20 17:15 137/72 (93) Laboratory Data Labs 24H Laboratory Tests 2 11/21/20 15:09: Neutrophils (%) (Auto) , Nucleated Red Blood Cells % (auto) 0.0, Neutrophils 75H, Band Neutrophils 5, Lymphocytes (Manual) 16, Monocytes (Manual) 3, Metamyelocytes 1H, Platelet Estimate NORMAL, Prothrombin Time 15.5H, Prothromb Time International Ratio 1.21, Anion Gap 8, Glomerular Filtration Rate > 60.0, Lactic Acid Level 3.5*H, Calcium Level 9.4, Total Bilirubin 1.2H, Direct Bilirubin 0.2, Aspartate Amino Transf (AST/SGOT) 31, Alanine Aminotransferase (A LT/SGPT) 43, Alkaline Phosphatase 80, Total Creatine Kinase 96, Creatine Kinase MB < 1.0, Creatine Kinase MB Relative Index 1.04, Troponin I < 0.02, BB-Ffa-E-Type Natriuretic Peptide 189H, Total Protein 7.1, Albumin 2.9L, Albumin/Globulin Ratio 0.7, Lipase 35L, Thyroid Stimulating Hormone (TSH) 0.424 11/21/20 15:27: Urine Color YELLOW, Urine Appearance CLEAR, Urine pH 5.0, Urine Specific [place] 1.030, Urine Protein 1+H, Urine Glucose (UA) 3+H, Urine Ketones NEGATIVE, Urine Blood NEGATIVE, Urine Nitrite NEGATIVE, Urine Bilirubin NEGATIVE, Urine Urobilinogen 2.0H, Urine Leukocyte Esterase NEGATIVE, Urine WBC (Auto) 1, Urine RBC (Auto) 0, Urine Hyaline Casts (Auto) 0, Urine Bacteria (Auto) NEGATIVE, Urine Squamous Epithelial Cells 0, Urine Sperm (Auto) CBC/BMP Laboratory Tests 11/21/20 15:09 Microbiology Microbiology 11/21/20 Blood Culture, Received Pending 11/21/20 Group A Streptococcus Screen (RAMIN), Received Pending 11/21/20 Respiratory Virus Panel (PCR) (RAMIN) - Final, Complete Human Rhinovirus/Enterovirus 11/21/20 Blood Culture, Received Pending Home Medications Scheduled Glipizide (Glipizide) 5 Mg Tablet, 5 MG PO DAILY Metformin HCl (Metformin HCl) 1,000 Mg Tablet, 1,000 MG PO BID Sennosides/Docusate Sodium (Colace 2-in-1 Tablet) 1 Each Tablet, 1 TAB PO BID Sertraline HCl (Sertraline HCl) 100 Mg Tablet, 100 MG PO DAILY Simvastatin (Simvastatin) 10 Mg Tablet, 10 MG PO DAILY Umeclidinium [place] (Incruse Ellipta) 62.5 Mcg Blst.w.dev, 1 PUFF INH DAILY Scheduled PRN Albuterol Sulfate (Albuterol Sulfate Hfa) 8.5 Gm Hfa.aer.ad, 2 PUFFS INH Q4-6HP PRN for SOB/WHEEZING Melatonin (Melatonin) 5 Mg Tablet, 10 MG PO QHSP PRN for INSOMNIA Ondansetron HCl (Ondansetron HCl) 8 Mg Tablet, 1 TAB PO Q8HP PRN for NAUSEA OR VOMITING Prochlorperazine Maleate (Prochlorperazine Maleate) 10 Mg Tablet, 10 MG PO Q6H PRN for NAUSEA OR VOMITING Miscellaneous Medications Cannabidiol (Cbd Oil) Btl Allergies Coded Allergies: No Known Allergies (Unverified , 08/14/19) A-FIB/CHADSVASC A-FIB History Current/History of A-Fib/PAF?: No Current PO Anticoag Therapy: Yes Age/Risk Factor Scoring CHADSVASC: CHADSVASC Response (Comments) Value Age Risk Factor Age < 65 years old 0 Gender Risk Factor Male 0 Hx of CHF No 0 Hx of HTN No 0 Hx of Stroke/TIA/or VTE No 0 Hx of Diabetes Yes 1 Hx of Vascular Disease No 0 Total 1 Treatment Treatment ordered: Rivaroxaban Tarah Burnette MD Nov 21, 2020 18:14
--- OUTSIDE RECORDS SUMMARY | 2020-11-21 18:30 | CCD ---
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 drug interference: Sulfasalazine Sulfapyridine Can see falsely depressed Can see falsely elevated result with up to 10% results with up to 10% decrease in measurement increase in measurement Recommend patients be collected for this test prior to administration of either drug. SGPT(ALT) 74 U/L 12-78 Normal (applies to non-numeric resul ts) [facility] Note the following drug interference: Sulfasalazine Sulfapyridine Can see falsely depressed Can see falsely elevated result with up to 29% results with up to 10% decrease in measurement increase in measurement Recommend patients be collected for this test prior to administration of either drug. Alkaline Phosphatase 64 U/L 38-126 Normal (applies to non-num martha results) [facility] can increase Alkaline Phosp le vels up to 2 times the normal adult value. Normal values for children and adolescents are 2 to 3 times the normal adult value. Total Protein 6.0-8.2 Normal (applies to non-numeric re sults) [facility] Albumin Level 3.4-5.0 Normal (applies to non-numeric re sults) [facility] ID Date Data Source [id number] 06/16/2020 03:28:00 PM EDT [facility] Name Value Range Interpretation Code Description Data Keysha rce(s) Supporting Document(s) Sodium 141 mmol/L 136-145 Normal (applies to non-numeric resul ts) [facility] Potassium 3.5-5.1 Normal (applies to non-numeric resul ts) [facility] Chloride 105 mmol/L 98-107 Normal (applies to non-numeric resul ts) [facility] Carbon Dioxide CO2 21-32 Normal (applies to non-numer ic results) [facility] Anion Gap 5.0-16.0 Normal (applies to non-numeric resul ts) [facility] BUN 10 mg/dL 7-18 Normal (applies to non-numeric results) [facility] Creatinine,Serum 0.8-1.5 Normal (applies to non-numeric results) [facility] GFR >60 Normal (applies to non-numeric results) [facility] Glucose Level 158 mg/dL 60-99 Above high normal [facility] Reference range is only applicable when patient is fasting Note the following drug interference: Sulfasalazine Sulfapyridine Can see falsely depressed Can see falsely elevated result with up to 17% results with up to 11% decrease in measurement increase in measurement Recommend patients be collected for this test prior to administration of either drug. Calcium 8.5-10.1 Normal (applies to non-numeric resul ts) [facility] Bilirubin,Total 0.1-1.9 Normal (applies to non-numeric results) [facility] SGOT(AST) 25 U/L 15-37 Normal (applies to non-numeric resul ts) [facility] Note the following drug interference: Sulfasalazine Sulfapyridine Can see falsely depressed Can see falsely elevated result with up to 10% results with up to 10% decrease in measurement increase in measurement Recommend patients be collected for this test prior to administration of either drug. SGPT(ALT) 74 U/L 12-78 Normal (applies to non-numeric resul ts) [facility] Note the following drug interference: Sulfasalazine Sulfapyridine Can see falsely depressed Can see falsely elevated result with up to 29% results with up to 10% decrease in measurement increase in measurement Recommend patients be collected for this test prior to administration of either drug. Alkaline Phosphatase 62 U/L 38-126 Normal (applies to non-num martha results) [facility] can increase Alkaline Phosp le vels up to 2 times the normal adult value. Normal values for children and adolescents are 2 to 3 times the normal adult value. Total Protein 6.0-8.2 Normal (applies to non-numeric re sults) [facility] Albumin Level 3.4-5.0 Normal (applies to non-numeric re sults) [facility] ID Date Data Source [id number] 06/16/2020 03:28:00 PM EDT [facility] Name Value Range Interpretation Code Description Data Keysha rce(s) Supporting Document(s) Thyroid Stimulate Hormone TSH 0.358-3.74 No rmal (applies to non-numeric results) [facility] ID Date Data Source [id number] 06/16/2020 03:28:00 PM EDT [facility] Name Value Range Interpretation Code Description Data Keysha rce(s) Supporting Document(s) Free T4 (Free Thyroxine) 0.76-1.46 Normal (applies to non -numeric results) [facility] ID Date Data Source [id number] 06/16/2020 02:32:00 PM EDT [facility] Name Value Range Interpretation Code Description Data Keysha rce(s) Supporting Document(s) White Blood Count 3.5-10.5 Normal (applies to non-numeri c results) [facility] Red Blood Count 4.30-5.70 Below low normal [facility] Hemoglobin 13.5-17.5 Below low normal [facility] Hematocrit 38.8-50.0 Below low normal [facility] Mean Corpuscular Volume 81.2-95.1 Normal (applies to non- numeric results) [facility] Mean Corpuscular Hgb 25.6-32.2 Normal (applies to non-num martha results) [facility] Mean Corpuscular Hgb Conc 32.0-36.0 Normal (applies to no n-numeric results) [facility] Red Cell Distribution Width 11.8-15.6 Normal (appli es to non-numeric results) [facility] Platelet Count 268 x10 3/uL 150-450 Normal (applies to non-numeric results) [facility] Mean Platelet Volume 9.4-12.4 Below low normal [facility] Neutrophils% (Auto) 31.0-71.0 Normal (applies to non-nume tita results) [facility] Lymphocytes% (Auto) 20.0-55.0 Normal (applies to non-nume tita results) [facility] Monocytes% (Auto) 4.0-12.0 Normal (applies to non-numeri c results) [facility] Eosinophils% (Auto) 1.0-8.0 Above high normal [facility] Basophils% (Auto) 0.0-2.0 Normal (applies to non-numeri c results) [facility] Immature Granulocytes% (Auto) 0.0-2.0 Normal (raquel lies to non-numeric results) [facility] Neutrophils# (Auto) 1.50-6.20 Normal (applies to non-nume tita results) [facility] Lymphocytes# (Auto) 1.20-4.00 Normal (applies to non-nume tita results) [facility] Monocytes# (Auto) 0.00-0.90 Normal (applies to non-numeri c results) [facility] Eosinophils# (Auto) 0.00-0.50 Above high normal [facility] Basophils# (Auto) 0.00-0.20 Normal (applies to non-numeri c results) [facility] Immature Granulocytes# (Auto) 0.00-7.00 No rmal (applies to non-numeric results) [facility] Slide Reviewed By Normal (applies to non-numeri c results) [facility] Slide has been reviewed and findings con firmed by a technologist/senior quality technician. ID Date Data Source [id number] 05/27/2020 11:00:00 AM EDT [facility] Name Value Range Interpretation Code Description Data Keysha rce(s) Supporting Document(s) Sodium 139 mmol/L 136-145 Normal (applies to non-numeric resul ts) [facility] Potassium 3.5-5.1 Normal (applies to non-numeric resul ts) [facility] Chloride 102 mmol/L 98-107 Normal (applies to non-numeric resul ts) [facility] Carbon Dioxide CO2 21-32 Normal (applies to non-numer ic results) [facility] Anion Gap 5.0-16.0 Normal (applies to non-numeric resul ts) [facility] BUN 9 mg/dL 7-18 Normal (applies to non-numeric results) [facility] Creatinine,Serum 0.8-1.5 Normal (applies to non-numeric results) [facility] GFR >60 Normal (applies to non-numeric results) [facility] Glucose Level 155 mg/dL 60-99 Above high normal [facility] Reference range is only applicable when patient is fasting Note the following drug interference: Sulfasalazine Sulfapyridine Can see falsely depressed Can see falsely elevated result with up to 17% results with up to 11% decrease in measurement increase in measurement Recommend patients be collected for this test prior to administration of either drug. Calcium 8.5-10.1 Normal (applies to non-numeric resul ts) [facility] Bilirubin,Total 0.1-1.9 Normal (applies to non-numeric results) [facility] SGOT(AST) 20 U/L 15-37 Normal (applies to non-numeric resul ts) [facility] Note the following drug interference: Sulfasalazine Sulfapyridine Can see falsely depressed Can see falsely elevated result with up to 10% results with up to 10% decrease in measurement increase in measurement Recommend patients be collected for this test prior to administration of either drug. SGPT(ALT) 70 U/L 12-78 Normal (applies to non-numeric resul ts) [facility] Note the following drug interference: Sulfasalazine Sulfapyridine Can see falsely depressed Can see falsely elevated result with up to 29% results with up to 10% decrease in measurement increase in measurement Recommend patients be collected for this test prior to administration of either drug. Alkaline Phosphatase 66 U/L 38-126 Normal (applies to non-num martha results) [facility] can increase Alkaline Phosp le vels up to 2 times the normal adult value. Normal values for children and adolescents are 2 to 3 times the normal adult value. Total Protein 6.0-8.2 Normal (applies to non-numeric re sults) [facility] Albumin Level 3.4-5.0 Normal (applies to non-numeric re sults) [facility] ID Date Data Source [id number] [facility] Value Range Interpretation Code Description Data Keysha rce(s) Supporting Document(s) Thyroid Stimulate Hormone TSH 0.358-3.74 No rmal (applies to non-numeric results) [facility] ID Date Data Source [id number] 05/27/2020 11:00:00 AM EDT [facility] Name Value Range Interpretation Code Description Data Keysha rce(s) Supporting Document(s) Free T4 (Free Thyroxine) 0.76-1.46 Normal (applies to non -numeric results) [facility] ID Date Data Source [id number] 05/27/2020 10:30:00 AM EDT [facility] Name Value Range Interpretation Code Description Data Keysha rce(s) Supporting Document(s) White Blood Count 3.5-10.5 Normal (applies to non-numeri c results) [facility] Red Blood Count 4.30-5.70 Below low normal [facility] Hemoglobin 13.5-17.5 Below low normal [facility] Hematocrit 38.8-50.0 Normal (applies to non-numeric resul ts) [facility] Mean Corpuscular Volume 81.2-95.1 Normal (applies to non- numeric results) [facility] Mean Corpuscular Hgb 25.6-32.2 Normal (applies to non-num martha results) [facility] Mean Corpuscular Hgb Conc 32.0-36.0 Normal (applies to no n-numeric results) [facility] Red Cell Distribution Width 11.8-15.6 Normal (appli es to non-numeric results) [facility] Platelet Count 246 x10 3/uL 150-450 Normal (applies to non-numeric results) [facility] Mean Platelet Volume 9.4-12.4 Below low normal [facility] Neutrophils% (Auto) 31.0-71.0 Normal (applies to non-nume tita results) [facility] Lymphocytes% (Auto) 20.0-55.0 Normal (applies to non-nume tita results) [facility] Monocytes% (Auto) 4.0-12.0 Normal (applies to non-numeri c results) [facility] Eosinophils% (Auto) 1.0-8.0 Above high normal [facility] Basophils% (Auto) 0.0-2.0 Normal (applies to non-numeri c results) [facility] Immature Granulocytes% (Auto) 0.0-2.0 Normal (raquel lies to non-numeric results) [facility] Neutrophils# (Auto) 1.50-6.20 Normal (applies to non-nume tita results) [facility] Lymphocytes# (Auto) 1.20-4.00 Normal (applies to non-nume tita results) [facility] Monocytes# (Auto) 0.00-0.90 Normal (applies to non-numeri c results) [facility] Eosinophils# (Auto) 0.00-0.50 Above high normal [facility] Basophils# (Auto) 0.00-0.20 Normal (applies to non-numeri c results) [facility] Immature Granulocytes# (Auto) 0.00-7.00 No rmal (applies to non-numeric results) [facility] ID Date Data Source [id number] 05/06/2020 05:40:00 PM EDT [facility] Name Value Range Interpretation Code Description Data Keysha rce(s) Supporting Document(s) UMALB Urine Creatinine result Normal (applies t o non-numeric results) [facility] Interpret with care as there is no estab lished reference range associated with this assay's methodology that pertains to this particular sex and/or age. [facility]AL[facility] Microalbumin,Ur result <1.7 [facility] UMALB Alb/Cre Ratio,Ur result Normal (applies t o non-numeric results) [facility] Test Performed By: [facility] [address] [place] [address] Director: Gino Hoyt MD Reference Ranges for Microalbumin,spot: Normal <30 ug/mg creatinine Microalbuminuria 30-300 ug/mg creatinine Clinical Albuminuria >300 ug/mg creatinine ID Date Data Source [id number] 05/06/2020 05:16:00 PM EDT [facility] Name Value Range Interpretation Code Description Data Keysha rce(s) Supporting Document(s) Creatinine,Urine Normal (applies to non-numeric results) [facility] Interpret with care as there is no estab lished reference range associated with this assay's methodology that pertains to this particular sex and/or age. Microalbumin,Urine <1.7 Above high normal [facility] Albumin/Creatinine Ratio,Urine Normal (applies to non-numeric results) [facility] Test Performed By: [facility] [address] [place] [address] Director: Gino Hoyt MD Reference Ranges for Microalbumin,spot: Normal <30 ug/mg creatinine Microalbuminuria 30-300 ug/mg creatinine Clinical Albuminuria >300 ug/mg creatinine ID Date Data Source [id number] 05/06/2020 12:45:00 PM EDT [facility] Name Value Range Interpretation Code Description Data Keysha rce(s) Supporting Document(s) Vitamin D, Total 30.0-100.0 Below low normal [facility] ID Date Data Source [id number] 05/06/2020 12:14:00 PM EDT [facility] Name Value Range Interpretation Code Description Data Keysha rce(s) Supporting Document(s) Color,Urine Colorl-Dk Y Normal (applies to non-numeric res ults) [facility] Clarity,Urine Clear Normal (applies to non-numeric re sults) [facility] Specific [place],Urine 1.005-1.030 Normal (applies to non- numeric results) [facility] pH,Urine 5.0-8.0 Normal (applies to non-numeric resul ts) [facility] Protein,U[facility] Negative [facility] Glucose,Urine Negative [facility] Ketones,Urine Negative [facility] Blood,Urine Negative Normal (applies to non-numeric resu lts) [facility] Bilirubin,Urine Negative Normal (applies to non-numeric results) [facility] Urobilinogen,Urine 0.2-1.0 Normal (applies to non-numer ic results) [facility] Leukocyte Esterase,Urine Negative Normal (applies to non -numeric results) [facility] Nitrite,Urine Negative Normal (applies to non-numeric re sults) [facility] RBC,Urine None Seen Normal (applies to non-numeric resul ts) [facility] WBC,Urine None Seen Normal (applies to non-numeric resul ts) [facility] Casts,Urine None Seen Normal (applies to non-numeric resu lts) [facility] Squamous Cells,Urine None Seen [facility] Amorphous Sediment,Urine None Seen [facility] Bacteria,Urine None Seen [facility] ital Mucus,Urine None Seen [facility] l ID Date Data Source [id number] 05/06/2020 12:09:00 PM EDT [facility] Name Value Range Interpretation Code Description Data Keysha rce(s) Supporting Document(s) Sodium 140 mmol/L 136-145 Normal (applies to non-numeric resul ts) [facility] Potassium 3.5-5.1 Normal (applies to non-numeric resul ts) [facility] Chloride 104 mmol/L 98-107 Normal (applies to non-numeric resul ts) [facility] Carbon Dioxide CO2 21-32 Normal (applies to non-numer ic results) [facility] Anion Gap 5.0-16.0 Normal (applies to non-numeric resul ts) [facility] BUN 7 mg/dL 7-18 Normal (applies to non-numeric results) [facility] Creatinine,Serum 0.8-1.5 Normal (applies to non-numeric results) [facility] GFR >60 Normal (applies to non-numeric results) [facility] Glucose Level 202 mg/dL 60-99 Above high normal [facility] Reference range is only applicable when patient is fasting Note the following drug interference: Sulfasalazine Sulfapyridine Can see falsely depressed Can see falsely elevated result with up to 17% results with up to 11% decrease in measurement increase in measurement Recommend patients be collected for this test prior to administration of either drug. Calcium 8.5-10.1 Normal (applies to non-numeric resul ts) [facility] Bilirubin,Total 0.1-1.9 Normal (applies to non-numeric results) [facility] SGOT(AST) 23 U/L 15-37 Normal (applies to non-numeric resul ts) [facility] Note the following drug interference: Sulfasalazine Sulfapyridine Can see falsely depressed Can see falsely elevated result with up to 10% results with up to 10% decrease in measurement increase in measurement Recommend patients be collected for this test prior to administration of either drug. SGPT(ALT) 82 U/L 12-78 Above high normal [facility] Note the following drug interference: Sulfasalazine Sulfapyridine Can see falsely depressed Can see falsely elevated result with up to 29% results with up to 10% decrease in measurement increase in measurement Recommend patients be collected for this test prior to administration of either drug. Alkaline Phosphatase 62 U/L 38-126 Normal (applies to non-num martha results) [facility] can increase Alkaline Phosp le vels up to 2 times the normal adult value. Normal values for children and adolescents are 2 to 3 times the normal adult value. Total Protein 6.0-8.2 Normal (applies to non-numeric re sults) [facility] Albumin Level 3.4-5.0 Normal (applies to non-numeric re sults) [facility] ID Date Data Source [id number] 05/06/2020 12:09:00 PM EDT [facility] Name Value Range Interpretation Code Description Data Keysha rce(s) Supporting Document(s) Thyroid Stimulate Hormone TSH 0.358-3.74 No rmal (applies to non-numeric results) [facility] ID Date Data Source [id number] 05/06/2020 12:09:00 PM T [facility] Name Value Range Interpretation Code Description Data Keysha rce(s) Supporting Document(s) Free T4 (Free Thyroxine) 0.76-1.46 Normal (applies to non -numeric results) [facility] ID Date Data Source [id number] 05/06/2020 12:08:[address] [facility] Name Value Range Interpretation Code Description Data Keysha rce(s) Supporting Document(s) Triglycerides 76 mg/dL <150 Normal (applies to non-numeric re sults) [facility] Cholesterol 153 mg/dL 100-200 Normal (applies to non-numeric resu lts) [facility] LDL Cholesterol Calculated 95 0-130 Normal (applies to n on-numeric results) [facility] HDL Cholesterol 43 mg/dL 40-60 Normal (applies to non-numeric results) [facility] Cholesterol/HDL Ratio 3.6-6.7 Normal (applies to non-nu meric results) [facility] ID Date Data Source [id number] 05/06/2020 11:38:00 AM EDT [facility] Name Value Range Interpretation Code Description Data Keysha rce(s) Supporting Document(s) White Blood Count 3.5-10.5 Normal (applies to non-numeri c results) [facility] Red Blood Count 4.30-5.70 Below low normal [facility] Hemoglobin 13.5-17.5 Below low normal [facility] Hematocrit 38.8-50.0 Below low normal [facility] Mean Corpuscular Volume 81.2-95.1 Normal (applies to non- numeric results) [facility] Mean Corpuscular Hgb 25.6-32.2 Normal (applies to non-num martha results) [facility] Mean Corpuscular Hgb Conc 32.0-36.0 Normal (applies to no n-numeric results) [facility] Red Cell Distribution Width 11.8-15.6 Below low normal [facility] Platelet Count 263 x10 3/uL 150-450 Normal (applies to non-numeric results) [facility] Mean Platelet Volume 9.4-12.4 Below low normal [facility] Neutrophils% (Auto) 31.0-71.0 Normal (applies to non-nume tita results) [facility] Lymphocytes% (Auto) 20.0-55.0 Below low normal [facility] Monocytes% (Auto) 4.0-12.0 Normal (applies to non-numeri c results) [facility] Eosinophils% (Auto) 1.0-8.0 Normal (applies to non-nume tita results) [facility] Basophils% (Auto) 0.0-2.0 Normal (applies to non-numeri c results) [facility] Immature Granulocytes% (Auto) 0.0-2.0 Normal (raquel lies to non-numeric results) [facility] Neutrophils# (Auto) 1.50-6.20 Normal (applies to non-nume tita results) [facility] Lymphocytes# (Auto) 1.20-4.00 Below low normal [facility] Monocytes# (Auto) 0.00-0.90 Normal (applies to non-numeri c results) [facility] Eosinophils# (Auto) 0.00-0.50 Normal (applies to non-nume tita results) [facility] Basophils# (Auto) 0.00-0.20 Normal (applies to non-numeri c results) [facility] Immature Granulocytes# (Auto) 0.00-7.00 No rmal (applies to non-numeric results) [facility] ID Date Data Source [id number] 03/21/2020 10:51:00 AM EDT [facility] Name Value Range Interpretation Code Description Data Keysha rce(s) Supporting Document(s) Sodium 135 mmol/L 136-145 Below low normal [facility] Potassium 3.5-5.1 Normal (applies to non-numeric resul ts) [facility] Chloride 100 mmol/L 98-107 Normal (applies to non-numeric resul ts) [facility] Carbon Dioxide CO2 21-32 Normal (applies to non-numer ic results) [facility] Anion Gap 5.0-16.0 Normal (applies to non-numeric resul ts) [facility] BUN 10 mg/dL 7-18 Normal (applies to non-numeric results) [facility] Creatinine,Serum 0.8-1.5 Normal (applies to non-numeric results) [facility] GFR >60 Normal (applies to non-numeric results) [facility] Glucose Level 233 mg/dL 60-99 Above high normal [facility] Reference range is only applicable when patient is fasting Note the following drug interference: Sulfasalazine Sulfapyridine Can see falsely depressed Can see falsely elevated result with up to 17% results with up to 11% decrease in measurement increase in measurement Recommend patients be collected for this test prior to administration of either drug. Calcium 8.5-10.1 Normal (applies to non-numeric resul ts) [facility] Bilirubin,Total 0.1-1.9 Normal (applies to non-numeric results) [facility] SGOT(AST) 30 U/L 15-37 Normal (applies to non-numeric resul ts) [facility] Note the following drug interference: Sulfasalazine Sulfapyridine Can see falsely depressed Can see falsely elevated result with up to 10% results with up to 10% decrease in measurement increase in measurement Recommend patients be collected for this test prior to administration of either drug. SGPT(ALT) 73 U/L 12-78 Normal (applies to non-numeric resul ts) [facility] Note the following drug interference: Sulfasalazine Sulfapyridine Can see falsely depressed Can see falsely elevated result with up to 29% results with up to 10% decrease in measurement increase in measurement Recommend patients be collected for this test prior to administration of either drug. Alkaline Phosphatase 78 U/L 38-126 Normal (applies to non-num martha results) [facility] can increase Alkaline Phosp le vels up to 2 times the normal adult value. Normal values for children and adolescents are 2 to 3 times the normal adult value. Total Protein 6.0-8.2 Normal (applies to non-numeric re sults) [facility] Albumin Level 3.4-5.0 Normal (applies to non-numeric re sults) [facility] ID Date Data Source [id number] 03/21/2020 10:51:00 AM EDT [facility] Name Value Range Interpretation Code Description Data Keysha rce(s) Supporting Document(s) Thyroid Stimulate Hormone TSH 0.358-3.74 No rmal (applies to non-numeric results) [facility] ID Date Data Source [id number] 03/21/2020 10:51:00 AM T [facility] Name Value Range Interpretation Code Description Data Keysha rce(s) Supporting Document(s) Free T4 (Free Thyroxine) 0.76-1.46 Normal (applies to non -numeric results) [facility] ID Date Data Source [id number] 03/21/2020 10:23:00 AM T [facility] Name Value Range Interpretation Code Description Data Keysha rce(s) Supporting Document(s) White Blood Count 3.5-10.5 Normal (applies to non-numeri c results) [facility] Red Blood Count 4.30-5.70 Normal (applies to non-numeric results) [facility] Hemoglobin 13.5-17.5 Normal (applies to non-numeric resul ts) [facility] Hematocrit 38.8-50.0 Normal (applies to non-numeric resul ts) [facility] Mean Corpuscular Volume 81.2-95.1 Normal (applies to non- numeric results) [facility] Mean Corpuscular Hgb 25.6-32.2 Normal (applies to non-num martha results) [facility] Mean Corpuscular Hgb Conc 32.0-36.0 Normal (applies to no n-numeric results) [facility] Red Cell Distribution Width 11.8-15.6 Below low normal [facility] Platelet Count 285 x10 3/uL 150-450 Normal (applies to non-numeric results) [facility] Mean Platelet Volume 9.4-12.4 Below low normal [facility] Neutrophils% (Auto) 31.0-71.0 Normal (applies to non-nume tita results) [facility] Lymphocytes% (Auto) 20.0-55.0 Normal (applies to non-nume tita results) [facility] Monocytes% (Auto) 4.0-12.0 Normal (applies to non-numeri c results) [facility] Eosinophils% (Auto) 1.0-8.0 Normal (applies to non-nume tita results) [facility] Basophils% (Auto) 0.0-2.0 Normal (applies to non-numeri c results) [facility] Immature Granulocytes% (Auto) 0.0-2.0 Normal (raquel lies to non-numeric results) [facility] Neutrophils# (Auto) 1.50-6.20 Normal (applies to non-nume tita results) [facility] Lymphocytes# (Auto) 1.20-4.00 Above high normal [facility] Monocytes# (Auto) 0.00-0.90 Normal (applies to non-numeri c results) [facility] Eosinophils# (Auto) 0.00-0.50 Above high normal [facility] Basophils# (Auto) 0.00-0.20 Normal (applies to non-numeri c results) [facility] Immature Granulocytes# (Auto) 0.00-7.00 No rmal (applies to non-numeric results) [facility] ID Date Data Source [id number] 02/22/2020 11:13:00 AM EDT [facility] Name Value Range Interpretation Code Description Data Keysha rce(s) Supporting Document(s) Sodium 139 mmol/L 136-145 Normal (applies to non-numeric resul ts) [facility] Potassium 3.5-5.1 Normal (applies to non-numeric resul ts) [facility] Chloride 101 mmol/L 98-107 Normal (applies to non-numeric resul ts) [facility] Carbon Dioxide CO2 21-32 Normal (applies to non-numer ic results) [facility] Anion Gap 5.0-16.0 Normal (applies to non-numeric resul ts) [facility] BUN 12 mg/dL 7-18 Normal (applies to non-numeric results) [facility] Creatinine,Serum 0.8-1.5 Normal (applies to non-numeric results) [facility] GFR >60 Normal (applies to non-numeric results) [facility] Glucose Level 227 mg/dL 60-99 Above high normal [facility] Reference range is only applicable when patient is fasting Note the following drug interference: Sulfasalazine Sulfapyridine Can see falsely depressed Can see falsely elevated result with up to 17% results with up to 11% decrease in measurement increase in measurement Recommend patients be collected for this test prior to administration of either drug. Calcium 8.5-10.1 Normal (applies to non-numeric resul ts) [facility] Bilirubin,Total 0.1-1.9 Normal (applies to non-numeric results) [facility] SGOT(AST) 23 U/L 15-37 Normal (applies to non-numeric resul ts) [facility] Note the following drug interference: Sulfasalazine Sulfapyridine Can see falsely depressed Can see falsely elevated result with up to 10% results with up to 10% decrease in measurement increase in measurement Recommend patients be collected for this test prior to administration of either drug. SGPT(ALT) 88 U/L 12-78 Above high normal [facility] Note the following drug interference: Sulfasalazine Sulfapyridine Can see falsely depressed Can see falsely elevated result with up to 29% results with up to 10% decrease in measurement increase in measurement Recommend patients be collected for this test prior to administration of either drug. Alkaline Phosphatase 67 U/L 38-126 Normal (applies to non-num martha results) [facility] can increase Alkaline Phosp le vels up to 2 times the normal adult value. Normal values for children and adolescents are 2 to 3 times the normal adult value. Total Protein 6.0-8.2 Normal (applies to non-numeric re sults) [facility] Albumin Level 3.4-5.0 Normal (applies to non-numeric re sults) [facility] ID Date Data Source [id number] 02/22/2020 11:13:00 AM T [facility] Name Value Range Interpretation Code Description Data Keysha rce(s) Supporting Document(s) Thyroid Stimulate Hormone TSH 0.358-3.74 No rmal (applies to non-numeric results) [facility] ID Date Data Source [id number] 02/22/2020 11:13:00 AM T [facility] Name Value Range Interpretation Code Description Data Keysha rce(s) Supporting Document(s) Free T4 (Free Thyroxine) 0.76-1.46 Normal (applies to non -numeric results) [facility] ID Date Data Source [id number] 02/22/2020 10:17:[address] [facility] Name Value Range Interpretation Code Description Data Keysha rce(s) Supporting Document(s) White Blood Count 3.5-10.5 Normal (applies to non-numeri c results) [facility] Red Blood Count 4.30-5.70 Below low normal [facility] Hemoglobin 13.5-17.5 Below low normal [facility] Hematocrit 38.8-50.0 Normal (applies to non-numeric resul ts) [facility] Mean Corpuscular Volume 81.2-95.1 Normal (applies to non- numeric results) [facility] Mean Corpuscular Hgb 25.6-32.2 Normal (applies to non-num martha results) [facility] Mean Corpuscular Hgb Conc 32.0-36.0 Normal (applies to no n-numeric results) [facility] Red Cell Distribution Width 11.8-15.6 Normal (appli es to non-numeric results) [facility] Platelet Count 237 x10 3/uL 150-450 Normal (applies to non-numeric results) [facility] Mean Platelet Volume 9.4-12.4 Below low normal [facility] Neutrophils% (Auto) 31.0-71.0 Normal (applies to non-nume tita results) [facility] Lymphocytes% (Auto) 20.0-55.0 Normal (applies to non-nume tita results) [facility] Monocytes% (Auto) 4.0-12.0 Normal (applies to non-numeri c results) [facility] Eosinophils% (Auto) 1.0-8.0 Normal (applies to non-nume tita results) [facility] Basophils% (Auto) 0.0-2.0 Normal (applies to non-numeri c results) [facility] Immature Granulocytes% (Auto) 0.0-2.0 Normal (raquel lies to non-numeric results) [facility] Neutrophils# (Auto) 1.50-6.20 Normal (applies to non-nume tita results) [facility] Lymphocytes# (Auto) 1.20-4.00 Normal (applies to non-nume tita results) [facility] Monocytes# (Auto) 0.00-0.90 Normal (applies to non-numeri c results) [facility] Eosinophils# (Auto) 0.00-0.50 Normal (applies to non-nume tita results) [facility] Basophils# (Auto) 0.00-0.20 Normal (applies to non-numeri c results) [facility] Immature Granulocytes# (Auto) 0.00-7.00 No rmal (applies to non-numeric results) [facility] ID Date Data Source [id number] 02/01/2020 09:18:[address] [facility] Name Value Range Interpretation Code Description Data Keysha rce(s) Supporting Document(s) CEA result 0.2-5.0 Normal (applies to non-numeric resul ts) [facility] % Distribution of CEA 0 [...] be used interchangeably. ID Date Data Source [id number] [facility] Interpretation Code Description Data Keysha rce(s) Supporting Document(s) CEA 0.2-5.0 Normal (applies to non-numeric results) [facility] % Distribution of CEA 0 - [...] be used interchangeably. ID Date Data Source [id number] 02/01/2020 10:55:[address] [facility] Name Value Range Interpretation Code Description Data Keysha rce(s) Supporting Document(s) Sodium 138 mmol/L 136-145 Normal (applies to non-numeric resul ts) [facility] Potassium 3.5-5.1 Normal (applies to non-numeric resul ts) [facility] Chloride 102 mmol/L 98-107 Normal (applies to non-numeric resul ts) [facility] Carbon Dioxide CO2 21-32 Normal (applies to non-numer ic results) [facility] Anion Gap 5.0-16.0 Normal (applies to non-numeric resul ts) [facility] BUN 9 mg/dL 7-18 Normal (applies to non-numeric results) [facility] Creatinine,Serum 0.8-1.5 Normal (applies to non-numeric results) [facility] GFR >60 Normal (applies to non-numeric results) [facility] Glucose Level 159 mg/dL 60-99 Above high normal [facility] Reference range is only applicable when patient is fasting Note the following drug interference: Sulfasalazine Sulfapyridine Can see falsely depressed Can see falsely elevated result with up to 17% results with up to 11% decrease in measurement increase in measurement Recommend patients be collected for this test prior to administration of either drug. Calcium 8.5-10.1 Normal (applies to non-numeric resul ts) [facility] Bilirubin,Total 0.1-1.9 Normal (applies to non-numeric results) [facility] SGOT(AST) 21 U/L 15-37 Normal (applies to non-numeric resul ts) [facility] Note the following drug interference: Sulfasalazine Sulfapyridine Can see falsely depressed Can see falsely elevated result with up to 10% results with up to 10% decrease in measurement increase in measurement Recommend patients be collected for this test prior to administration of either drug. SGPT(ALT) 67 U/L 12-78 Normal (applies to non-numeric resul ts) [facility] Note the following drug interference: Sulfasalazine Sulfapyridine Can see falsely depressed Can see falsely elevated result with up to 29% results with up to 10% decrease in measurement increase in measurement Recommend patients be collected for this test prior to administration of either drug. Alkaline Phosphatase 68 U/L 38-126 Normal (applies to non-num martha results) [facility] can increase Alkaline Phosp le vels up to 2 times the normal adult value. Normal values for children and adolescents are 2 to 3 times the normal adult value. Total Protein 6.0-8.2 Normal (applies to non-numeric re sults) [facility] Albumin Level 3.4-5.0 Normal (applies to non-numeric re sults) [facility] ID Date Data Source [id number] 02/01/2020 10:55:00 AM EDT [facility] Name Value Range Interpretation Code Description Data Keysha rce(s) Supporting Document(s) Thyroid Stimulate Hormone TSH 0.358-3.74 No rmal (applies to non-numeric results) [facility] ID Date Data Source [id number] 02/01/2020 10:55:00 AM EDT [facility] Name Value Range Interpretation Code Description Data Keysha rce(s) Supporting Document(s) Free T4 (Free Thyroxine) 0.76-1.46 Normal (applies to non -numeric results) [facility] ID Date Data Source [id number] 02/01/2020 10:13:00 AM EDT [facility] Name Value Range Interpretation Code Description Data Keysha rce(s) Supporting Document(s) White Blood Count 3.5-10.5 Normal (applies to non-numeri c results) [facility] Red Blood Count 4.30-5.70 Below low normal [facility] Hemoglobin 13.5-17.5 Below low normal [facility] Hematocrit 38.8-50.0 Below low normal [facility] Mean Corpuscular Volume 81.2-95.1 Above high normal [facility] Mean Corpuscular Hgb 25.6-32.2 Normal (applies to non-num martha results) [facility] Mean Corpuscular Hgb Conc 32.0-36.0 Normal (applies to no n-numeric results) [facility] Red Cell Distribution Width 11.8-15.6 Normal (appli es to non-numeric results) [facility] Platelet Count 224 x10 3/uL 150-450 Normal (applies to non-numeric results) [facility] Mean Platelet Volume 9.4-12.4 Below low normal [facility] Neutrophils% (Auto) 31.0-71.0 Normal (applies to non-nume tita results) [facility] Lymphocytes% (Auto) 20.0-55.0 Normal (applies to non-nume tita results) [facility] Monocytes% (Auto) 4.0-12.0 Normal (applies to non-numeri c results) [facility] Eosinophils% (Auto) 1.0-8.0 Normal (applies to non-nume tita results) [facility] Basophils% (Auto) 0.0-2.0 Normal (applies to non-numeri c results) [facility] Immature Granulocytes% (Auto) 0.0-2.0 Normal (raquel lies to non-numeric results) [facility] Neutrophils# (Auto) 1.50-6.20 Normal (applies to non-nume tita results) [facility] Lymphocytes# (Auto) 1.20-4.00 Normal (applies to non-nume tita results) [facility] Monocytes# (Auto) 0.00-0.90 Normal (applies to non-numeri c results) [facility] Eosinophils# (Auto) 0.00-0.50 Normal (applies to non-nume tita results) [facility] Basophils# (Auto) 0.00-0.20 Normal (applies to non-numeri c results) [facility] Immature Granulocytes# (Auto) 0.00-7.00 No rmal (applies to non-numeric results) [facility] ID Date Data Source [id number] 01/12/2020 08:24:00 AM EDT [facility] Name Value Range Interpretation Code Description Data Keysha rce(s) Supporting Document(s) Free T4 (Free Thyroxine) 0.76-1.46 Normal (applies to non -numeric results) [facility] ID Date Data Source [id number] 01/12/2020 07:34:00 AM EDT [facility] Name Value Range Interpretation Code Description Data Keysha rce(s) Supporting Document(s) Sodium 140 mmol/L 136-145 Normal (applies to non-numeric resul ts) [facility] Potassium 3.5-5.1 Normal (applies to non-numeric resul ts) [facility] Chloride 102 mmol/L 98-107 Normal (applies to non-numeric resul ts) [facility] Carbon Dioxide CO2 21-32 Normal (applies to non-numer ic results) [facility] Anion Gap 5.0-16.0 Normal (applies to non-numeric resul ts) [facility] BUN 10 mg/dL 7-18 Normal (applies to non-numeric results) [facility] Creatinine,Serum 0.8-1.5 Normal (applies to non-numeric results) [facility] GFR >60 Normal (applies to non-numeric results) [facility] Glucose Level 154 mg/dL 60-99 Above high normal [facility] Reference range is only applicable when patient is fasting Note the following drug interference: Sulfasalazine Sulfapyridine Can see falsely depressed Can see falsely elevated result with up to 17% results with up to 11% decrease in measurement increase in measurement Recommend patients be collected for this test prior to administration of either drug. Calcium 8.5-10.1 Normal (applies to non-numeric resul ts) [facility] Bilirubin,Total 0.1-1.9 Normal (applies to non-numeric results) [facility] SGOT(AST) 18 U/L 15-37 Normal (applies to non-numeric resul ts) [facility] Note the following drug interference: Sulfasalazine Sulfapyridine Can see falsely depressed Can see falsely elevated result with up to 10% results with up to 10% decrease in measurement increase in measurement Recommend patients be collected for this test prior to administration of either drug. SGPT(ALT) 49 U/L 12-78 Normal (applies to non-numeric resul ts) [facility] Note the following drug interference: Sulfasalazine Sulfapyridine Can see falsely depressed Can see falsely elevated result with up to 29% results with up to 10% decrease in measurement increase in measurement Recommend patients be collected for this test prior to administration of either drug. Alkaline Phosphatase 72 U/L 38-126 Normal (applies to non-num martha results) [facility] can increase Alkaline Phosp le vels up to 2 times the normal adult value. Normal values for children and adolescents are 2 to 3 times the normal adult value. Total Protein 6.0-8.2 Normal (applies to non-numeric re sults) [facility] Albumin Level 3.4-5.0 Normal (applies to non-numeric re sults) [facility] ID Date Data Source [id number] 01/12/2020 07:34:[address] [facility] Name Value Range Interpretation Code Description Data Keysha rce(s) Supporting Document(s) Thyroid Stimulate Hormone TSH 0.358-3.74 No rmal (applies to non-numeric results) [facility] ID Date Data Source [id number] 01/11/2020 02:26:[address] [facility] Name Value Range Interpretation Code Description Data Keysha rce(s) Supporting Document(s) CEA result 0.2-5.0 Normal (applies to non-numeric resul ts) [facility] % Distribution of CEA 0 [...] be used interchangeably. ID Date Data Source [id number] 01/11/2020 01:55:00 PM [facility] Name Value Range Interpretation Code Description Data Keysha rce(s) Supporting Document(s) CEA 0.2-5.0 Normal (applies to non-numeric results) [facility] % Distribution of CEA 0 - [...] be used interchangeably. ID Date Data Source [id number] 01/11/2020 09:49:[address] [facility] Name Value Range Interpretation Code Description Data Keysha rce(s) Supporting Document(s) White Blood Count 3.5-10.5 Normal (applies to non-numeri c results) [facility] Red Blood Count 4.30-5.70 Below low normal [facility] Hemoglobin 13.5-17.5 Below low normal [facility] Hematocrit 38.8-50.0 Below low normal [facility] Mean Corpuscular Volume 81.2-95.1 Normal (applies to non- numeric results) [facility] Mean Corpuscular Hgb 25.6-32.2 Normal (applies to non-num martha results) [facility] Mean Corpuscular Hgb Conc 32.0-36.0 Normal (applies to no n-numeric results) [facility] Red Cell Distribution Width 11.8-15.6 Normal (appli es to non-numeric results) [facility] Platelet Count 212 x10 3/uL 150-450 Normal (applies to non-numeric results) [facility] Mean Platelet Volume 9.4-12.4 Below low normal [facility] Neutrophils% (Auto) 31.0-71.0 Normal (applies to non-nume tita results) [facility] Lymphocytes% (Auto) 20.0-55.0 Normal (applies to non-nume tita results) [facility] Monocytes% (Auto) 4.0-12.0 Normal (applies to non-numeri c results) [facility] Eosinophils% (Auto) 1.0-8.0 Normal (applies to non-nume tita results) [facility] Basophils% (Auto) 0.0-2.0 Normal (applies to non-numeri c results) [facility] Immature Granulocytes% (Auto) 0.0-2.0 Normal (raquel lies to non-numeric results) [facility] Neutrophils# (Auto) 1.50-6.20 Normal (applies to non-nume tita results) [facility] Lymphocytes# (Auto) 1.20-4.00 Normal (applies to non-nume tita results) [facility] Monocytes# (Auto) 0.00-0.90 Normal (applies to non-numeri c results) [facility] Eosinophils# (Auto) 0.00-0.50 Normal (applies to non-nume tita results) [facility] Basophils# (Auto) 0.00-0.20 Normal (applies to non-numeri c results) [facility] Immature Granulocytes# (Auto) 0.00-7.00 No rmal (applies to non-numeric results) [facility] ID Date Data Source [id number] 12/21/2019 03:05:00 PM [facility] Name Value Range Interpretation Code Description Data Keysha rce(s) Supporting Document(s) CEA result 0.2-5.0 Normal (applies to non-numeric resul ts) [facility] % Distribution of CEA 0 - 2.5 in 98.2% of nonsmokers and 87.3% of smokers 2.6 - 5.0 in 1.8% of non-smokers and 8.0% of smokers Serum CEA concentrations should not be interpreted as absolute evidence for the presence or absence of malignant disease. Assayed utilizing the [employer] chemiluminometric technology. Values obtained by using different assay methods cannot be used interchangeably. ID Date Data Source [id number] 12/21/2019 02:19:00 PM [facility] Name Value Range Interpretation Code Description Data Keysha rce(s) Supporting Document(s) CEA 0.2-5.0 Normal (applies to non-numeric results) [facility] % Distribution of CEA 0 - [...] be used interchangeably. ID Date Data Source [id number] 12/21/2019 09:51:00 AM [facility] Name Value Range Interpretation Code Description Data Keysha rce(s) Supporting Document(s) Sodium 140 mmol/L 136-145 Normal (applies to non-numeric resul ts) [facility] Potassium 3.5-5.1 Normal (applies to non-numeric resul ts) [facility] Chloride 104 mmol/L 98-107 Normal (applies to non-numeric resul ts) [facility] Carbon Dioxide CO2 21-32 Normal (applies to non-numer ic results) [facility] Anion Gap 5.0-16.0 Normal (applies to non-numeric resul ts) [facility] BUN 7 mg/dL 7-18 Normal (applies to non-numeric results) [facility] Creatinine,Serum 0.8-1.5 Normal (applies to non-numeric results) [facility] GFR >60 Normal (applies to non-numeric results) [facility] Glucose Level 143 mg/dL 60-99 Above high normal [facility] Reference range is only applicable when patient is fasting Note the following drug interference: Sulfasalazine Sulfapyridine Can see falsely depressed Can see falsely elevated result with up to 17% results with up to 11% decrease in measurement increase in measurement Recommend patients be collected for this test prior to administration of either drug. Calcium 8.5-10.1 Normal (applies to non-numeric resul ts) [facility] Bilirubin,Total 0.1-1.9 Normal (applies to non-numeric results) [facility] SGOT(AST) 27 U/L 15-37 Normal (applies to non-numeric resul ts) [facility] Note the following drug interference: Sulfasalazine Sulfapyridine Can see falsely depressed Can see falsely elevated result with up to 10% results with up to 10% decrease in measurement increase in measurement Recommend patients be collected for this test prior to administration of either drug. SGPT(ALT) 76 U/L 12-78 Normal (applies to non-numeric resul ts) [facility] Note the following drug interference: Sulfasalazine Sulfapyridine Can see falsely depressed Can see falsely elevated result with up to 29% results with up to 10% decrease in measurement increase in measurement Recommend patients be collected for this test prior to administration of either drug. Alkaline Phosphatase 71 U/L 38-126 Normal (applies to non-num martha results) [facility] can increase Alkaline Phosp le vels up to 2 times the normal adult value. Normal values for children and adolescents are 2 to 3 times the normal adult value. Total Protein 6.0-8.2 Normal (applies to non-numeric re sults) [facility] Albumin Level 3.4-5.0 Normal (applies to non-numeric re sults) [facility] ID Date Data Source [id number] 12/21/2019 09:51:00 AM EST [facility] Name Value Range Interpretation Code Description Data Keysha rce(s) Supporting Document(s) Free T4 (Free Thyroxine) 0.76-1.46 Normal (applies to non -numeric results) [facility] ID Date Data Source [id number] 12/21/2019 09:21:00 AM EST [facility] Name Value Range Interpretation Code Description Data Keysha rce(s) Supporting Document(s) White Blood Count 3.5-10.5 Normal (applies to non-numeri c results) [facility] Red Blood Count 4.30-5.70 Below low normal [facility] Hemoglobin 13.5-17.5 Below low normal [facility] Hematocrit 38.8-50.0 Below low normal [facility] Mean Corpuscular Volume 81.2-95.1 Normal (applies to non- numeric results) [facility] Mean Corpuscular Hgb 25.6-32.2 Normal (applies to non-num martha results) [facility] Mean Corpuscular Hgb Conc 32.0-36.0 Normal (applies to no n-numeric results) [facility] Red Cell Distribution Width 11.8-15.6 Normal (appli es to non-numeric results) [facility] Platelet Count 267 x10 3/uL 150-450 Normal (applies to non-numeric results) [facility] Mean Platelet Volume 9.4-12.4 Below low normal [facility] Neutrophils% (Auto) 31.0-71.0 Normal (applies to non-nume tita results) [facility] Lymphocytes% (Auto) 20.0-55.0 Normal (applies to non-nume tita results) [facility] Monocytes% (Auto) 4.0-12.[address] [facility] Eosinophils% (Auto) 1.0-8.0 Normal (applies to non-nume tita results) [facility] Basophils% (Auto) 0.0-2.0 Normal (applies to non-numeri c results) [facility] Immature Granulocytes% (Auto) 0.0-2.0 Normal (raquel lies to non-numeric results) [facility] Neutrophils# (Auto) 1.50-6.20 Normal (applies to non-nume tita results) [facility] Lymphocytes# (Auto) 1.20-4.00 Normal (applies to non-nume tita results) [facility] Monocytes# (Auto) 0.00-0.[address] [facility] Eosinophils# (Auto) 0.00-0.50 Normal (applies to non-nume tita results) [facility] Basophils# (Auto) 0.00-0.20 Normal (applies to non-numeri c results) [facility] Immature Granulocytes# (Auto) 0.00-7.00 No rmal (applies to non-numeric results) [facility] ID Date Data Source [id number] 11/30/2019 10:59:00 AM EST [facility] Name Value Range Interpretation Code Description Data Keysha rce(s) Supporting Document(s) Sodium 141 mmol/L 136-145 Normal (applies to non-numeric resul ts) [facility] Potassium 3.5-5.1 Normal (applies to non-numeric resul ts) [facility] Chloride 103 mmol/L 98-107 Normal (applies to non-numeric resul ts) [facility] Carbon Dioxide CO2 21-32 Normal (applies to non-numer ic results) [facility] Anion Gap 5.0-16.0 Normal (applies to non-numeric resul ts) [facility] BUN 7 mg/dL 7-18 Normal (applies to non-numeric results) [facility] Creatinine,Serum 0.8-1.5 Normal (applies to non-numeric results) [facility] GFR >60 Normal (applies to non-numeric results) [facility] Glucose Level 145 mg/dL 60-99 Above high normal [facility] Reference range is only applicable when patient is fasting Note the following drug interference: Sulfasalazine Sulfapyridine Can see falsely depressed Can see falsely elevated result with up to 17% results with up to 11% decrease in measurement increase in measurement Recommend patients be collected for this test prior to administration of either drug. Calcium 8.5-10.1 Normal (applies to non-numeric resul ts) [facility] Bilirubin,Total 0.1-1.9 Normal (applies to non-numeric results) [facility] SGOT(AST) 23 U/L 15-37 Normal (applies to non-numeric resul ts) [facility] Note the following drug interference: Sulfasalazine Sulfapyridine Can see falsely depressed Can see falsely elevated result with up to 10% results with up to 10% decrease in measurement increase in measurement Recommend patients be collected for this test prior to administration of either drug. SGPT(ALT) 84 U/L 12-78 Above high normal [facility] Note the following drug interference: Sulfasalazine Sulfapyridine Can see falsely depressed Can see falsely elevated result with up to 29% results with up to 10% decrease in measurement increase in measurement Recommend patients be collected for this test prior to administration of either drug. Alkaline Phosphatase 78 U/L 38-126 Normal (applies to non-num martha results) [facility] can increase Alkaline Phosp le vels up to 2 times the normal adult value. Normal values for children and adolescents are 2 to 3 times the normal adult value. Total Protein 6.0-8.2 Normal (applies to non-numeric re sults) [facility] Albumin Level 3.4-5.0 Normal (applies to non-numeric re sults) [facility] ID Date Data Source [id number] 11/30/2019 10:59:00 AM EST [facility] Name Value Range Interpretation Code Description Data Keysha rce(s) Supporting Document(s) Thyroid Stimulate Hormone TSH 0.358-3.74 No rmal (applies to non-numeric results) [facility] ID Date Data Source [id number] 11/30/2019 10:59:00 AM EST [facility] Name Value Range Interpretation Code Description Data Keysha rce(s) Supporting Document(s) Free T4 (Free Thyroxine) 0.76-1.46 Normal (applies to non -numeric results) [facility] ID Date Data Source [id number] 11/30/2019 09:55:00 AM EST [facility] Name Value Range Interpretation Code Description Data Keysha rce(s) Supporting Document(s) White Blood Count 3.5-10.5 Normal (applies to non-numeri c results) [facility] Red Blood Count 4.30-5.70 Normal (applies to non-numeric results) [facility] Hemoglobin 13.5-17.5 Below low normal [facility] Hematocrit 38.8-50.0 Normal (applies to non-numeric resul ts) [facility] Mean Corpuscular Volume 81.2-95.1 Normal (applies to non- numeric results) [facility] Mean Corpuscular Hgb 25.6-32.2 Normal (applies to non-num matrha results) [facility] Mean Corpuscular Hgb Conc 32.0-36.0 Normal (applies to no n-numeric results) [facility] Red Cell Distribution Width 11.8-15.6 Normal (appli es to non-numeric results) [facility] Platelet Count 341 x10 3/uL 150-450 Normal (applies to non-numeric results) [facility] Mean Platelet Volume 9.4-12.4 Below low normal [facility] Neutrophils% (Auto) 31.0-71.0 Normal (applies to non-nume tita results) [facility] Lymphocytes% (Auto) 20.0-55.0 Normal (applies to non-nume tita results) [facility] Monocytes% (Auto) 4.0-12.[address] [facility] Eosinophils% (Auto) 1.0-8.0 Normal (applies to non-nume tita results) [facility] Basophils% (Auto) 0.0-2.0 Normal (applies to non-numeri c results) [facility] Immature Granulocytes% (Auto) 0.0-2.0 Normal (raquel lies to non-numeric results) [facility] Neutrophils# (Auto) 1.50-6.20 Normal (applies to non-nume tita results) [facility] Lymphocytes# (Auto) 1.20-4.00 Above high normal [facility] Monocytes# (Auto) 0.00-0.[address] [facility] Eosinophils# (Auto) 0.00-0.50 Normal (applies to non-nume tita results) [facility] Basophils# (Auto) 0.00-0.20 Normal (applies to non-numeri c results) [facility] Immature Granulocytes# (Auto) 0.00-7.00 No rmal (applies to non-numeric results) [facility] ID Date Data Source [id number] 11/13/2019 02:43:00 PM [facility] Pending Campylobacter: Not detected C.difficile Toxin [...] rce(s) Supporting Document(s) ID Date Data Source [id number] 11/12/2019 05:40:00 PM [facility] Collected By: Nurse Initials: pc Time Collected: 1732 Name Value Range Interpretation Code Description Data Keysha rce(s) Supporting Document(s) Color,Urine Colorl-Dk Y Normal (applies to non-numeric res ults) [facility] Clarity,Urine Clear Normal (applies to non-numeric re sults) [facility] Specific [place],Urine 1.015-1.025 Normal (applies to non- numeric results) [facility] pH,Urine 5.0-7.0 Normal (applies to non-numeric resul ts) [facility] Protein,Urine Negative Normal (applies to non-numeric re sults) [facility] Glucose,Urine Negative [facility] Ketones,Urine Negative Normal (applies to non-numeric re sults) [facility] Blood,Urine Negative Normal (applies to non-numeric resu lts) [facility] Bilirubin,Urine Negative Normal (applies to non-numeric results) [facility] Urobilinogen,Urine Normal Normal (applies to non-numer ic results) [facility] Leukocyte Esterase,Urine Negative Normal (applies to non -numeric results) [facility] Nitrite,Urine Negative Normal (applies to non-numeric re sults) [facility] ID Date Data Source [id number] 11/18/2019 01:21:00 AM EST [facility] NO GROWTH AFTER 120 HOURS (5 Days) Proc edure Performed By: [facility] [address] [place] [address] Director: Gino Davila Name Value Range Interpretation Code Description Data Keysha rce(s) Supporting Document(s) ID Date Data Source [id number] 11/17/2019 08:43:00 PM EST [facility] NO GROWTH AFTER 120 HOURS (5 Days) Pr ocedure Performed By: [facility] [address] [place] [address] Director: Gino Davila Name Value Range Interpretation Code Description Data Keysha rce(s) Supporting Document(s) ID Date Data Source [id number] 11/18/2019 01:21:00 AM EST [facility] NO [facility]OWTH AFTER 120 HOURS (5 Days) Proc edure Performed By: [facility] [address] [place] [address] Director: Gino Davila Name Value Range Interpretation Code Description Data Keysha rce(s) Supporting Document(s) ID Date Data Source [id number] 11/17/2019 08:43:00 PM [facility] NO GROWTH AFTER 120 HOURS (5 Days) Pr ocedure Performed By: [facility] [address] [place] [address] Director: Gino Davila Name Value Range Interpretation Code Description Data Keysha rce(s) Supporting Document(s) ID Date Data Source [id number] 11/12/2019 05:25:00 PM [facility] Name Value Range Interpretation Code Description Data Keysha rce(s) Supporting Document(s) PT 9.2-11.7 Normal (applies to non-numeric results) [facility] INR Normal (applies to non-numeric results) [facility] The use of INR is restricted to patients on stable oral anticoagulant. Therapeutic Range: 2.0 - 3.0 High Risk Range: 2.5 - 3.5 ID Date Data Source [id number] 11/12/2019 05:25:00 PM [facility] Name Value Range Interpretation Code Description Data Keysha rce(s) Supporting Document(s) PTT 23.8-37.9 Normal (applies to non-numeric results) [facility] ID Date Data Source [id number] 11/12/2019 05:15:00 PM [facility] Name Value Range Interpretation Code Description Data Keysha rce(s) Supporting Document(s) Lactic Acid 0.4-2.0 Normal (applies to non-numeric resu lts) [facility] ID Date Data Source [id number] 11/12/2019 04:59:00 PM [facility] Name Value Range Interpretation Code Description Data Keysha rce(s) Supporting Document(s) Sodium 135 mmol/L 136-145 Below low normal [facility] Potassium 3.5-5.1 Normal (applies to non-numeric resul ts) [facility] Chloride 100 mmol/L 98-107 Normal (applies to non-numeric resul ts) [facility] Carbon Dioxide CO2 21-32 Normal (applies to non-numer ic results) [facility] Anion Gap 5.0-16.0 Normal (applies to non-numeric resul ts) [facility] BUN 14 mg/dL 7-18 Normal (applies to non-numeric results) [facility] Creatinine,Serum 0.8-1.5 Normal (applies to non-numeric results) [facility] GFR >60 Normal (applies to non-numeric results) [facility] Glucose Level 163 mg/dL 60-99 Above high normal [facility] Reference range is only applicable when patient is fasting Note the following drug interference: Sulfasalazine Sulfapyridine Can see falsely depressed Can see falsely elevated result with up to 17% results with up to 11% decrease in measurement increase in measurement Recommend patients be collected for this test prior to administration of either drug. Calcium 8.5-10.1 Below low normal [facility] Bilirubin,Total 0.1-1.9 Normal (applies to non-numeric results) [facility] SGOT(AST) 39 U/L 15-37 Above high normal [facility] Note the following drug interference: Sulfasalazine Sulfapyridine Can see falsely depressed Can see falsely elevated result with up to 10% results with up to 10% decrease in measurement increase in measurement Recommend patients be collected for this test prior to administration of either drug. SGPT(ALT) 113 U/L 12-78 Above high normal [facility] Note the following drug interference: Sulfasalazine Sulfapyridine Can see falsely depressed Can see falsely elevated result with up to 29% results with up to 10% decrease in measurement increase in measurement Recommend patients be collected for this test prior to administration of either drug. Alkaline Phosphatase 61 U/L 38-126 Normal (applies to non-num martha results) [facility] can increase Alkaline Phosp le vels up to 2 times the normal adult value. Normal values for children and adolescents are 2 to 3 times the normal adult value. Total Protein 6.0-8.2 Normal (applies to non-numeric re sults) [facility] Albumin Level 3.4-5.0 Normal (applies to non-numeric re sults) [facility] ID Date Data Source [id number] 11/12/2019 05:00:00 PM [facility] Name Value Range Interpretation Code Description Data Keysha rce(s) Supporting Document(s) Troponin I 0.000-0.056 Normal (applies to non-numeric resu lts) [facility] ID Date Data Source [id number] 11/12/2019 05:00:00 PM [facility] Name Value Range Interpretation Code Description Data Keysha rce(s) Supporting Document(s) Amylase 60 U/L 25-115 Normal (applies to non-numeric resul ts) [facility] ID Date Data Source [id number] 11/12/2019 05:00:00 PM [facility] Name Value Range Interpretation Code Description Data Keysha rce(s) Supporting Document(s) Lipase 140 U/L 73-393 Normal (applies to non-numeric resul ts) [facility] ID Date Data Source [id number] 11/12/2019 04:54:00 PM [facility] Name Value Range Interpretation Code Description Data Keysha rce(s) Supporting Document(s) White Blood Count 3.5-10.5 Normal (applies to non-numeri c results) [facility] Red Blood Count 4.30-5.70 Normal (applies to non-numeric results) [facility] Hemoglobin 13.5-17.5 Below low normal [facility] Hematocrit 38.8-50.0 Normal (applies to non-numeric resul ts) [facility] Mean Corpuscular Volume 81.2-95.1 Normal (applies to non- numeric results) [facility] Mean Corpuscular Hgb 25.6-32.2 Normal (applies to non-num martha results) [facility] Mean Corpuscular Hgb Conc 32.0-36.0 Normal (applies to no n-numeric results) [facility] Red Cell Distribution Width 11.8-15.6 Normal (appli es to non-numeric results) [facility] Platelet Count 122 x10 3/uL 150-450 Below low normal [facility] Slide has been reviewed and findings con firmed by a technologist/senior quality technician. Mean Platelet Volume 9.4-12.4 Below low normal [facility] Neutrophils% (Auto) 31.0-71.0 Normal (applies to non-nume tita results) [facility] Lymphocytes% (Auto) 20.0-55.0 Normal (applies to non-nume tita results) [facility] Monocytes% (Auto) 4.0-12.0 Normal (applies to non-numeri c results) [facility] Eosinophils% (Auto) 1.0-8.0 Below low normal [facility] Basophils% (Auto) 0.0-2.0 Normal (applies to non-numeri c results) [facility] Immature Granulocytes% (Auto) 0.0-2.0 Normal (raquel lies to non-numeric results) [facility] Neutrophils# (Auto) 1.50-6.20 Normal (applies to non-nume tita results) [facility] Lymphocytes# (Auto) 1.20-4.00 Normal (applies to non-nume tita results) [facility] Monocytes# (Auto) 0.00-0.90 Normal (applies to non-numeri c results) [facility] Eosinophils# (Auto) 0.00-0.50 Normal (applies to non-nume tita results) [facility] Basophils# (Auto) 0.00-0.20 Normal (applies to non-numeri c results) [facility] Immature Granulocytes# (Auto) 0.00-7.00 No rmal (applies to non-numeric results) [facility] ID Date Data Source [id number] 11/13/2019 07:09:00 AM EST [facility] Imaging Services Department Imaging Report [address] [place] [id number] %(RAD)RES..mtdd.print.filter("line") Name: MAMTA YORK : 1970 Age/Sex: 48M Ordering Provider: Efe Quispe MD Med Rec #: [id number] Reg Status: [facility] Room #: Date of Service: 11/12/19 Report Number: [id number] cc:Kole Perez NP Send Report To: [id number] CT/CT Abdomen & Pelvis No Contras Reason [...] Date/Time: 11/12/19 1740 Transcribed Date/Time: 11/13/19 0709 Cell Phone Repair Technician: TESSIE Name Value Range Interpretation Code Description Data Keysha rce(s) Supporting Document(s) ID Date Data Source [id number] 11/13/2019 08:48:00 AM [facility] Imaging Services Department Imaging Report [address] [place] [address] %(RAD)RES..mtdd.print.filter("line") Name: JAYLENMAMTA S : 1970 Age/Sex: 48M Ordering Provider: Efe Quispe MD Med Rec #: [id number] Reg Status: [facility] Room #: Date of Service: 11/12/19 Report Number: [id number] cc:Kole Perez NP Send Report To: [id number] XRP/XR Chest Xray Portable Reason for exam: [...] Date/Time: 11/12/19 1643 Transcribed Date/Time: 11/13/19 0848 Cell Phone Repair Technician: MICHAEL Name Value Range Interpretation Code Description [facility] Supporting Document(s) ID Date Data Source [id number] 11/12/2019 04:47:00 PM EST [facility] Method performed by Isothermal Nucle ic [...] Name Value Range Interpretation Code Description Data [facility] Supporting Document(s) ID Date Data Source [id number] 11/13/2019 02:34:00 PM EST [facility] Methodology: Multiplexed PCR Refer ence Range: None detected Name Value Range Interpretation Code Description Data [facility] Supporting Document(s) ID Date Data Source [id number] 10/19/2019 03:32:00 PM [facility] Name Value Range Interpretation Code Description Data Keysha rce(s) Supporting Document(s) CEA result 0.2-5.0 [facility] % Distribution of CEA 0 [...] be used interchangeably. ID Date Data Source [id number] 10/19/2019 03:24:00 PM [facility] [facility] Name Value Range Interpretation Code Description Data Keysha rce(s) Supporting Document(s) CEA 0.2-5.0 Above high normal Health system % Distribution of CEA 0 - 2.5 [...] be used interchangeably. ID Date Data Source [id number] 10/19/2019 02:28:00 PM [facility] Name Value Range Interpretation Code Description Data Keysha rce(s) Supporting Document(s) Sodium 140 mmol/L 136-145 Normal (applies to non-numeric resul ts) [facility] Potassium 3.5-5.1 Normal (applies to non-numeric resul ts) [facility] Chloride 100 mmol/L 98-107 Normal (applies to non-numeric resul ts) [facility] Carbon Dioxide CO2 21-32 Normal (applies to non-numer ic results) [facility] Anion Gap 5.0-16.0 Normal (applies to non-numeric resul ts) [facility] BUN 9 mg/dL 7-18 Normal (applies to non-numeric results) [facility] Creatinine,Serum 0.8-1.5 Normal (applies to non-numeric results) [facility] GFR >60 Normal (applies to non-numeric results) [facility] Glucose Level 133 mg/dL 60-99 Above high normal [facility] Reference range is only applicable when patient is fasting Note the following drug interference: Sulfasalazine Sulfapyridine Can see falsely depressed Can see falsely elevated result with up to 17% results with up to 11% decrease in measurement increase in measurement Recommend patients be collected for this test prior to administration of either drug. Calcium 8.5-10.1 Normal (applies to non-numeric resul ts) [facility] Bilirubin,Total 0.1-1.9 Normal (applies to non-numeric results) [facility] SGOT(AST) 16 U/L 15-37 Normal (applies to non-numeric resul ts) [facility] Note the following drug interference: Sulfasalazine Sulfapyridine Can see falsely depressed Can see falsely elevated result with up to 10% results with up to 10% decrease in measurement increase in measurement Recommend patients be collected for this test prior to administration of either drug. SGPT(ALT) 56 U/L 12-78 Normal (applies to non-numeric resul ts) [facility] Note the following drug interference: Sulfasalazine Sulfapyridine Can see falsely depressed Can see falsely elevated result with up to 29% results with up to 10% decrease in measurement increase in measurement Recommend patients be collected for this test prior to administration of either drug. Alkaline Phosphatase 73 U/L 38-126 Normal (applies to non-num martha results) [facility] can increase Alkaline Phosp le vels up to 2 times the normal adult value. Normal values for children and adolescents are 2 to 3 times the normal adult value. Total Protein 6.0-8.2 Normal (applies to non-numeric re sults) [facility] Albumin Level 3.4-5.0 Normal (applies to non-numeric re sults) [facility] ID Date Data Source [id number] 10/19/2019 02:28:00 PM EST [facility] Name Value Range Interpretation Code Description Data Keysha rce(s) Supporting Document(s) Thyroid Stimulate Hormone TSH 0.358-3.740 No rmal (applies to non-numeric results) [facility] ID Date Data Source [id number] 10/19/2019 02:28:00 PM EST [facility] Name Value Range Interpretation Code Description Data Keysha rce(s) Supporting Document(s) Free T4 (Free Thyroxine) 0.76-1.46 Normal (applies to non -numeric results) [facility] ID Date Data Source [id number] 10/19/2019 09:42:00 AM EST [facility] Name Value Range Interpretation Code Description Data Keysha rce(s) Supporting Document(s) White Blood Count 3.5-10.[address] [facility] Red Blood Count 4.30-5.70 Normal (applies to non-numeric results) [facility] Hemoglobin 13.5-17.5 Below low normal [facility]ital Hematocrit 38.8-50.0 Normal (applies to non-numeric resul ts) [facility] Mean Corpuscular Volume 81.2-95.1 Normal (applies to non- numeric results) [facility] Mean Corpuscular Hgb 25.6-32.2 Normal (applies to non-num martha results) [facility] Mean Corpuscular Hgb Conc 32.0-36.0 Normal (applies to no n-numeric results) [facility] Red Cell Distribution Width 11.8-15.6 Normal (appli es to non-numeric results) [facility] Platelet Count 396 x10 3/uL 150-450 Normal (applies to non-numeric results) [facility] Mean Platelet Volume 9.4-12.4 Below low normal [facility] Neutrophils% (Auto) 31.0-71.0 Normal (applies to non-nume tita results) [facility] Lymphocytes% (Auto) 20.0-55.0 Normal (applies to non-nume tita results) [facility] Monocytes% (Auto) 4.0-12.0 Normal (applies to non-numeri c results) [facility] Eosinophils% (Auto) 1.0-8.0 Above high normal [facility] Basophils% (Auto) 0.0-2.0 Normal (applies to non-numeri c results) [facility] Immature Granulocytes% (Auto) 0.0-2.0 Normal (raquel lies to non-numeric results) [facility] Neutrophils# (Auto) 1.50-6.20 Normal (applies to non-nume tita results) [facility] Lymphocytes# (Auto) 1.20-4.00 Above high normal [facility] Monocytes# (Auto) 0.00-0.[address] [facility] Eosinophils# (Auto) 0.00-0.50 Above high normal [facility] Basophils# (Auto) 0.00-0.20 Normal (applies to non-numeri c results) [facility] Immature Granulocytes# (Auto) 0.00-7.00 No rmal (applies to non-numeric results) [facility] Slide has been reviewed and findings con firmed by a technologist/senior quality technician. ID Date Data Source [id number] 10/19/2019 01:40:00 PM EST [facility] Imaging Services Department Imaging Report [address] [place], [place] [id number] %(RAD)RES..mtdd.print.filter("line") Name: JAYLENMAMTA S : 1970 Age/Sex: 48M Ordering Provider: Kristel Campos MD Med Rec #: [id number] Reg Status: DEP REF Room #: Date of Service: 10/19/19 Report Number: [id number] cc:Kristel Campos MD; Kole Perez NP Send Report To: [id number] US/US Dup Upper Ext Veins Rt Reason [...] Date/Time: 10/19/19 1333 Transcribed Date/Time: 10/19/19 1340 Cell Phone Repair Technician: TESSIE Name Value Range Interpretation Code Description Data Keysha rce(s) Supporting Document(s) ID Date Data Source [id number] 10/19/2019 01:50:00 PM [facility] Imaging Services Department Imaging Report [address] [place], [place] [address] %(RAD)RES..mtdd.print.filter("line") Name: MAMTA YORK : 1970 Age/Sex: 48M Ordering Provider: Kristel Campos MD Med Rec #: [id number] Reg Status: [facility] Room #: Date of Service: 10/19/19 Report Number: [id number] cc:Kristel Campos MD; Kole Perez NP Send Report To: [id number] US/US Soft Tissue Head/Neck Reason for exam: [...] Date/Time: 10/19/19 1330 Transcribed Date/Time: 10/19/19 1350 Cell Phone Repair Technician: TESSIE Name Value Range Interpretation Code Description Data Keysha rce(s) Supporting Document(s) Procedure Social History Code Duration Value Status Description Data Source(s ) Smoking 03/15/2020 12:00:00 AM EDT - 11/04/2018 12:00:00 AM EST Patient is a former smoker completed Patient is a former smoker [facility] ([facility]) Vital Signs ID Date Data Source UNK Name Value Range Interpretation Code Description Data Source(s) Body weight 109.771 kg 109.771 kg [facility] ([facility]) Body mass index (BMI) [Ratio] 35.7 kg/m2 35.7 k g/m2 [facility] ([facility]) Body weight 242.00 [lb_av] 242.00 [lb_av] [facility] Body height 69 [in_i] 69 [in_i] [facility] ([facility]) 5'9" Body temperature 96.9 [degF] 96.9 [degF] [facility] ([facility]) Oxygen saturation in Arterial blood by Pulse oximetry 97 % 97 % [facility] ([facility]) Heart rate 93 /min 93 /min [facility] ([facility]) Diastolic blood pressure 70 mm[Hg] 70 mm[Hg] [facility] ([facility]) Systolic blood pressure 130 mm[Hg] 130 mm[Hg] [facility]) Body weight 102.060 kg 102.060 kg [facility] ([facility]) Body mass index (BMI) [Ratio] 33.2 kg/m2 33.2 k g/m2 [facility]) Body weight 225.00 [lb_av] 225.00 [lb_av] [facility] ([facility]) Body height 69 [in_i] 69 [in_i] [facility] ([facility]) 5'9" Oxygen saturation in Arterial blood by Pulse oximetry 99 % 99 % [facility]) Heart rate 105 /min 105 /min [facility]) Diastolic blood pressure 82 mm[Hg] 82 mm[Hg] [facility]) Systolic blood pressure 102 mm[Hg] 102 mm[Hg] [facility]) ID Date Data Source [id number] 09/18/2020 03:11:00 PM EST [facility] Name Value Range Interpretation Code Description Data Source(s) Weight Measurement Method 8 8 [facility] 3808 3808 [facility] 7 7 [facility] 97.5 97.5 [facility] 1 1 [facility] Respiratory Rate 17 17 [facility] Pulse Assessment Method 4 4 G [facility] Pulse Rate 130 130 [facility] pital Height 69 69 [facility] Blood Pressure 129/91 129/91 [facility] Weight Measurement Method 8 8 [facility] Weight 3808 3808 [facility] pital Temperature Source 7 7 [facility] Temperature 97.5 97.5 [facility] spital Respiratory Effort 1 1 [facility] Respiratory Rate 17 17 [facility] Pulse Assessment Method 4 4 G [facility] Pulse Rate 134 134 [facility] pital Height 69 69 [facility] Blood Pressure 129/91 129/91 [facility] ID Date Data Source [id number] 05/06/2020 05:16:00 PM EDT [facility] Name Value Range Interpretation Code Description Data Source(s) Weight (Calculated Kilograms) 102.06 102.06 [facility] Height (Calculated Centimeters) 172.72 172. 72 [facility] Body Mass Index (BMI) 34.2 34.2 [facility] ID Date Data Source [id number] 04/26/2020 10:06:00 AM EDT [facility] Name Value Range Interpretation Code Description Data Source(s) Weight Measurement Method 8 8 [facility] Weight 3904 3904 [facility] pital Temperature Source 7 7 [facility] Temperature 98.1 98.1 [facility] spital Respiratory Effort 1 1 [facility] Respiratory Rate 18 18 [facility] Pulse Assessment Method 4 4 G [facility] Pulse Rate 118 118 [facility] pital Height 69 69 [facility] pital Blood Pressure 118/96 118/96 [facility] Weight Measurement Method 8 8 [facility] Weight 3904 3904 [facility] pital Temperature Source 7 7 [facility] Temperature 98.1 98.1 [facility] spital Respiratory Effort 1 1 [facility] Respiratory Rate 18 18 [facility] Pulse Assessment Method 4 4 [facility] Pulse Rate 118 118 [facility] pital Height 69 69 [facility] Blood Pressure 118/96 118/96 [facility] ID Date Data Source [id number] 02/01/2020 08:14:00 PM EDT [facility] Name Value Range Interpretation Code Description Data Source(s) Weight (Calculated Kilograms) 102.06 102.06 [facility] Height (Calculated Centimeters) 172.72 172. 72 [facility] Body Mass Index (BMI) 34.2 34.2 [facility] ID Date Data Source [id number] 01/11/2020 01:55:00 PM EDT [facility] Name Value Range Interpretation Code Description Data Source(s) Weight (Calculated Kilograms) 102.06 102.06 [facility] Height (Calculated Centimeters) 172.72 172. 72 [facility] Body Mass Index (BMI) 34.2 34.2 [facility] ID Date Data Source [id number] 12/21/2019 02:19:00 PM EST [facility] Name Value Range Interpretation Code Description Data Source(s) Weight (Calculated Kilograms) 102.06 102.06 [facility] Height (Calculated Centimeters) 172.72 172. 72 [facility] Body Mass Index (BMI) 34.2 34.2 [facility] ID Date Data Source [id number] 11/13/2019 02:34:00 PM EST [facility] Name Value Range Interpretation Code Description Data Source(s) Weight (Calculated Kilograms) 102.06 102.06 [facility] Height (Calculated Centimeters) 172.72 172. 72 [facility] Body Mass Index (BMI) 34.2 34.2 [facility] ID Date Data Source [id number] 11/17/2019 08:43:00 PM EST [facility] Name Value Range Interpretation Code Description Data Source(s) Weight (Calculated Kilograms) 102.06 102.06 [facility] Height (Calculated Centimeters) 172.72 172. 72 [facility] Body Mass Index (BMI) 34.2 34.2 [facility] ID Date Data Source [id number] 12/14/2019 01:02:00 PM EST [facility] Name Value Range Interpretation Code Description Data Source(s) Weight Measurement Method 8 8 [facility] Weight 3680 3680 [facility] Temperature Source 7 7 [facility] Temperature 98.3 98.3 [facility] sp[facility] Respiratory Effort 1 1 [facility] Respiratory Rate 18 18 [facility] Pulse Assessment Method 4 4 [facility] Pulse Rate 112 112 [facility] pital Height 69 69 [facility] Blood Pressure 150/60 150/60 [facility] Weight Measurement Method 8 8 [facility] Weight 3680 3680 [facility] Temperature Source 7 7 [facility] Temperature 98.3 98.3 [facility] spital Respiratory Effort 1 1 [facility] Respiratory Rate 18 18 [facility] Pulse Assessment Method 4 4 [facility] Pulse Rate 112 112 [facility] pital Height 69 69 [facility] Blood Pressure 150/60 150/60 [facility] Weight Measurement Method 8 8 [facility] Weight 3680 3680 [facility] pital Temperature Source 7 7 [facility] Temperature 98.3 98.3 [facility] spital Respiratory Effort 1 1 [facility] Respiratory Rate 16 16 [facility] Pulse Assessment Method 4 4 [facility] Pulse Rate 116 116 [facility] pital Height 69 69 [facility] pital Blood Pressure 112/63 112/63 [facility] Weight Measurement Method 8 8 [facility] Weight 3680 3680 [facility] pital Temperature Source 7 7 [facility] Temperature 98.3 98.3 [facility] spital Respiratory Effort 1 1 [facility] Respiratory Rate 16 16 [facility] Pulse Assessment Method 4 4 [facility] Pulse Rate 108 108 [facility] pital Height 69 69 [facility] pital Blood Pressure 117/80 117/80 [facility] ID Date Data Source [id number] 10/19/2019 03:24:00 PM [facility] Name Value Range Interpretation Code Description Data Source(s) Weight (Calculated Kilograms) 102.06 102.06 [facility] Height (Calculated Centimeters) 172.72 172. 72 [facility] Body Mass Index (BMI) 34.2 34.2 [facility]
[2020-11-21] MEDS ORDERED: ELIQ2.5T PO (18:43)
[2020-11-21] MEDS ORDERED: GLUCOSE 4GM CHEW TABLET PO PRN (18:45)
[2020-11-21] MEDS ORDERED: DEXTROSE 50% 50 ML SYRINGE IV PRN (18:45)
[2020-11-21] MEDS ORDERED: GLUCAGON INJ 1MG VIAL SC PRN (18:45)
[2020-11-21 18:58] VITALS: BP 122/84
[2020-11-21] MEDS ORDERED: ONDANSETRON 4 MG TAB PO PRN (19:00)
[2020-11-21] MEDS ORDERED: PROCHLORPERAZINE 5 MG TAB (S0183) PO PRN (19:00)
[2020-11-21] MEDS: NS 1,000 ML IV SCH (19:36)
[2020-11-21] MEDS: LEVALBUTEROL 1.25 MG/0.5 ML CONCENTRATE NEB NEB SCH (20:00)
--- NOTE | 2020-11-21 20:01 | ECGEPIP ---
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
[2020-11-21] MEDS: HumaLOG INSULIN (NovoLOG) PER UNIT SC SCH (21:00)
[2020-11-21 22:00] VITALS: BP 122/83
[2020-11-21] MEDS: SENOKOT S TAB PO SCH (22:42)
[2020-11-21] MEDS: APIXABAN 2.5 MG TAB (ELIQUIS) PO SCH (22:43)
[2020-11-21] MEDS: SIMVASTATIN 10 MG TAB PO SCH (22:43)
[2020-11-21] MEDS: PIPERACILLIN/TAZOBACTAM SOD 3.375 GM in D5W MINI-BAG PLUS 50 ML IV SCH (23:17)
[2020-11-22] MEDS: LEVALBUTEROL 1.25 MG/0.5 ML CONCENTRATE NEB NEB SCH ×4 (03:00→20:35)
[2020-11-22 03:30] VITALS: BP 152/96
[2020-11-22] MEDS: ACETAMINOPHEN TAB 650MG DOSE (2X325MG) PO PRN ×2 (03:43→10:27)
[2020-11-22] MEDS: NS 1,000 ML IV SCH ×3 (03:56→18:26)
[2020-11-22 03:57] LABS: ABG BASE EXCESS -0.6 (-2.0-2.0); ABG HCO3 22.9 MEQ/L (22.0-26.0); ABG O2 SATURATION 92.4 % (95.0-99.0); ABG PARTIAL PRESSURE CO2 33.3 mmHg (35.0-45.0); ABG PARTIAL PRESSURE O2 61.9 mmHg (75.0-100.0); ABG STANDARD HCO3 23.9 MEQ/L (22.0-26.0); ABG TOTAL CO2 23.9 MEQ/L (22.0-29.0); ABG pH (ARTERIAL) 7.455 UNITS (7.350-7.450)
[2020-11-22] MEDS: PIPERACILLIN/TAZOBACTAM SOD 3.375 GM in D5W MINI-BAG PLUS 50 ML IV SCH ×4 (04:26→23:26)
--- NOTE | 2020-11-22 04:26 | REPVR ---
PROCEDURE INFORMATION: Exam: XR Chest, 1 View Exam date and time: 11/22/2020 4:07 AM Age: 49 years old Clinical indication: Tachypnea; Additional info: Tachy, hypoxic TECHNIQUE: Imaging protocol: XR of the chest Views: 1 view. COMPARISON: 1. ND PORTABLE CHEST X-RAY 11/21/2020 3:[address] ANGIO CHEST 11/21/2020 5:04:46 PM FINDINGS: Tubes, catheters and devices: Right-sided chest port is stable in position. Lungs: There is persistent central perihilar consolidation within the right upper lobe and increasing confluent opacity within the right lower lung. Left lung remains relatively clear. Pleural space: Moderate right pleural effusion. No pneumothorax. Heart/Mediastinum: Cardiac size is normal and mediastinal contour stable. Bones/joints: Bones are stable. IMPRESSION: Extensive pleural-parenchymal changes within the right hemithorax with central right upper lobe consolidation, increasing confluent opacity within the right lower lung and moderate right pleural effusion. Large right lower lobe pulmonary abscess suspected on recent chest CT. See chest CT report for complete details. Electronically signed by: Marlon Pandey On 11/22/2020 04:26:19 AM
[2020-11-22] MEDS ORDERED: LORazepam 2 MG/ML VIAL IM PRN (05:00)
--- NOTE | 2020-11-22 05:02 | IPNPDOC ---
Text Note Date of Service The patient was seen on 11/22/20. 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 Suresh. He had been reported to be tachycardic earlier in the morning. At 0330 his vitals were HR 150-160s, BP 152/96, RR 38, O2 96% on RA, temp 99.4. He has been coughing up copious amounts of thick sputum. He received a breathing treatment around that time as well. A repeat CXR and ABG were ordered. The ABG was 7.455/33/62 which is c/w an acute respiratory alkalosis. The CXR images are not available for my review at this time. The reports shows an increasingly confluent opacity within the right lower lung and moderate right pleural effusion. He is resting comfortably at this time. His HR is down to the 120-130s, which isn't normal, but is certainly headed the right way. I added some Ativan to help if he gets worked up again by clearing the sputum, etc. VS,Ilya, I+O VS, Ilya, I+O Laboratory Tests 11/21/20 15:09 Vital Signs Date Time Temp Pulse Resp B/P (MAP) Pulse Ox O2 Delivery O2 Flow Rate FiO2 11/22/20 04:32 139 11/22/20 03:41 38 Room Air 11/22/20 03:30 99.4 152/96 (114) 96 I&O- Last 24 Hours up to 6 AM 11/22/20 06:00 Intake Total 1250 ml Output Total 850 ml Balance 400 ml Suhas Haque MD Nov 22, 2020 05:02
[2020-11-22 06:00] VITALS: BP 116/76
[2020-11-22 06:37] LABS: HEMATOCRIT 26.7 % (42.0-52.0); HEMOGLOBIN 8.6 g/dl (13.5-17.5); MEAN CORPUSCULAR HEMOGLOBIN 29.7 pg (27.0-33.0); MEAN CORPUSCULAR HGB CONC 32.2 g/dl (32.0-36.5); MEAN CORPUSCULAR VOLUME 92.1 fl (80.0-96.0); PLATELET COUNT, AUTOMATED 314 10^3/uL (150-450); WHITE BLOOD COUNT 10.8 10^3/uL (4.0-10.0)
[2020-11-22 07:02] LABS: ALBUMIN 2.5 GM/DL (3.2-5.2); ALT/SGPT 29 U/L (12-78); BILIRUBIN,TOTAL 1.2 MG/DL (0.2-1.0); BLOOD UREA NITROGEN 9 MG/DL (7-18); CALCIUM LEVEL 8.6 MG/DL (8.5-10.1); CARBON DIOXIDE LEVEL 24 MEQ/L (21-32); CHLORIDE LEVEL 102 MEQ/L (98-107); CREATININE FOR GFR 0.79 MG/DL (0.70-1.30); GLOMERULAR FILTRATION RATE > 60.0 (>60); GLUCOSE, FASTING 236 MG/DL (70-100); POTASSIUM SERUM 4.1 MEQ/L (3.5-5.1); SODIUM LEVEL 133 MEQ/L (136-145); TOTAL PROTEIN 5.9 GM/DL (6.4-8.2)
[2020-11-22] MEDS: APIXABAN 2.5 MG TAB (ELIQUIS) PO SCH ×2 (08:03→21:17)
[2020-11-22] MEDS: VANCOMYCIN HCL 1,000 MG, VIAL MATE ADAPTER 1 EACH in D5W 250 ML IV SCH ×2 (08:03→16:02)
[2020-11-22] MEDS: HumaLOG INSULIN (NovoLOG) PER UNIT SC SCH ×4 (08:03→21:18)
[2020-11-22] MEDS: SERTRALINE 100 MG TAB PO SCH (08:03)
[2020-11-22] MEDS: SENOKOT S TAB PO SCH ×2 (08:03→21:17)
[2020-11-22] MEDS ORDERED: VANCOMYCIN HCL 1,000 MG, VIAL MATE ADAPTER 1 EACH in D5W 250 ML IV ONE (09:00)
[2020-11-22] MEDS ORDERED: MORPHINE 2 MG/ML 1ML VIAL (J2270) IV PRN (11:00)
[2020-11-22] MEDS ORDERED: traMADol 50 MG TAB PO PRN (12:30)
[2020-11-22 14:00] VITALS: BP 124/79
[2020-11-22] MEDS ORDERED: METOPROLOL 5 MG/5 ML VIAL IV PRN (15:30)
--- NOTE | 2020-11-22 15:32 | IPNPDOC ---
Text Note Date of Service The patient was seen on 11/22/20. NOTE Subjective: Patient continues to have rapid ventricular rate in the morning, complains of right upper quadrant pain. Objective: GENERAL APPEARANCE: NAD HEENT: no scleral icterus, no JVD, EOMI CARDIOVASCULAR: Irregularly irregular, tachycardia at rate 120 LUNGS: Diminished lung sounds bilaterally ABDOMEN: Tenderness of right upper quadrant MUSCULOSKELETAL: no cyanosis, no swelling INTEGUMENT: no generalized pallor NEUROLOGICAL: cranial nerve function from 2-12 intact intact, follows commands, speech not dysarthric Assessment and plan Patient is 49-year-old male with a past medical history of stage IV lung cancer squamous cell, diabetes mellitus, history of clot in the right chest port, hyperlipidemia, insomnia, history of tobacco use, depression admitted for furthe r treatment of lung abscess with multifocal PNA, sepsis. Sepsis secondary to multifocal pneumonia and lung abscess with pleural effusion complicated with Stage IV lung cancer CT was done and showed Large right lower lobe pulmonary abscess suspected measuring 8 x 7 x 7 cm with adjacent pleural effusion, and lung consolidation suggesting multifocal pneumonia. This has progressed since the prior CT Continue broad-spectrum antibiotics vancomycin IV and Zosyn IV Dr. Duong on admission was contacted by ER physician, he recommended conservative treatment with antibiotics. Previous hospitalist discussed the case with Dr. Gary (pulmonary) who agrees with treatment. Blood culture positive for gram-positive cocci Continue IV fluid Right side pleural effusion likely 2/2 to abscess, lung CA -CT above -BNP 189 -ED contacted Dr. Duong (CT surgery), no need to tap but to c/w abx for now Appreciate/agree with thoracic surgeon consult Stage IV lung cancer squamous cell -Prior tobacco use, diagnosed 09/2020 On palliative chemotherapy -Follows [facility] Dr[facility] Armijo [facility] Appreciate/agree with oncologist consult Diabetes mellitus Diabetes diet Insulin sliding scale Atrial fibrillation with rapid ventricular rate Continue Eliquis Continue metoprolol 25 mg every 6 hours Lopressor IV when necessary Hyperlipidemia C/w statin Depression C/w home med VS,Fishbone, I+O VS, Fishbone, I+O Laboratory Tests 11/22/20 05:48 Vital Signs Date Time Temp Pulse Resp B/P (MAP) Pulse Ox O2 Delivery O2 Flow Rate FiO2 11/22/20 14:00 99.1 140 22 124/79 (94) 98 Room Air I&O- Last 24 Hours up to 6 AM 11/22/20 06:00 Intake Total 2800 ml Output Total 850 ml Balance 1950 ml MAURILIO WALL DO Nov 22, 2020 15:32
--- NOTE | 2020-11-22 15:44 | REP ---
INDICATION: RUQ pain. COMPARISON: CT 12/15/2019. TECHNIQUE: Real-time sonographic evaluation of ABDOMEN performed. FINDINGS: The gallbladder is not well visualized due to patient body habitus and fibrofatty infiltration of the liver.. There is no intrahepatic or extrahepatic biliary dilatation, common bile duct measures 3 mm in maximum diameter. The liver demonstrates diffuse heterogeneous increased echotexture compatible with diffuse fibrofatty infiltration. No gross mass is seen. Pancreas is not well seen due to overlying bowel gas but the visualized portions are unremarkable. Spleen is mildly enlarged with no intrinsic abnormality, measuring 13.9 cm in length. There is no evidence of hydronephrosis, cyst, mass, or calculus in either kidney. The right kidney measures 11.7 x 4.7 x 4.5 cm. Left renal dimensions are 11.9 x 4.4 x 5.3 cm. The abdominal aorta is normal in caliber with no aneurysm. Maximum diameter 2.2 cm. No free fluid is seen. A right pleural effusion is incidentally noted. IMPRESSION: The gallbladder is not well visualized. There is diffuse fibrofatty infiltration of the liver. There is no evidence of biliary dilatation. Spleen is mildly enlarged. The study is limited due to patient body habitus and bowel gas. A right pleural effusion is incidentally noted. <Electronically signed by Nasir Villalobos > 11/22/20 2276
[2020-11-22] MEDS ORDERED: METOPROLOL TART 25 MG TABLET PO ONE (16:00)
[2020-11-22 16:50] VITALS: BP 144/98
[2020-11-22] MEDS ORDERED: NS 1,000 ML IV ONE (17:15)
[2020-11-22 17:50] LABS: HEMATOCRIT 26.3 % (42.0-52.0); HEMOGLOBIN 8.4 g/dl (13.5-17.5); MEAN CORPUSCULAR HEMOGLOBIN 29.4 pg (27.0-33.0); MEAN CORPUSCULAR HGB CONC 31.9 g/dl (32.0-36.5); PLATELET COUNT, AUTOMATED 319 10^3/uL (150-450); RED BLOOD COUNT 2.86 10^6/uL (4.30-6.10); WHITE BLOOD COUNT 11.4 10^3/uL (4.0-10.0)
[2020-11-22 18:17] LABS: ALBUMIN 2.4 GM/DL (3.2-5.2); ALT/SGPT 26 U/L (12-78); BLOOD UREA NITROGEN 9 MG/DL (7-18); CALCIUM LEVEL 8.9 MG/DL (8.5-10.1); CARBON DIOXIDE LEVEL 23 MEQ/L (21-32); CHLORIDE LEVEL 101 MEQ/L (98-107); CREATININE FOR GFR 1.18 MG/DL (0.70-1.30); GLOMERULAR FILTRATION RATE > 60.0 (>60); GLUCOSE, FASTING 318 MG/DL (70-100); MAGNESIUM LEVEL 1.6 MG/DL (1.8-2.4); SODIUM LEVEL 132 MEQ/L (136-145); TOTAL PROTEIN 5.8 GM/DL (6.4-8.2)
[2020-11-22 18:34] LABS: LYMPHOCYTES 4 % (16-44); MONOCYTES 6 % (0-5); MYELOCYTES 2 % (0-0); NEUTROPHILS 30 % (28-66)
[2020-11-22 18:35] LABS: ANISOCYTOSIS 1+
[2020-11-22 18:36] LABS: PLATELET ESTIMATE NORMAL (NORMAL)
[2020-11-22 20:30] VITALS: BP 134/88
[2020-11-22] MEDS: SIMVASTATIN 10 MG TAB PO SCH (21:17)
[2020-11-23 00:31] VITALS: BP 140/91
[2020-11-23] MEDS: VANCOMYCIN HCL 1,000 MG, VIAL MATE ADAPTER 1 EACH in D5W 250 ML IV SCH ×3 (00:33→22:26)
[2020-11-23] MEDS: METOPROLOL TART 25 MG TABLET PO SCH ×4 (00:33→17:34)
[2020-11-23] MEDS: LEVALBUTEROL 1.25 MG/0.5 ML CONCENTRATE NEB NEB SCH ×4 (02:00→21:41)
[2020-11-23 04:08] VITALS: BP 130/77
[2020-11-23] MEDS: PIPERACILLIN/TAZOBACTAM SOD 3.375 GM in D5W MINI-BAG PLUS 50 ML IV SCH ×3 (04:11→17:33)
[2020-11-23 07:48] LABS: HEMATOCRIT 26.1 % (42.0-52.0); HEMOGLOBIN 8.2 g/dl (13.5-17.5); MEAN CORPUSCULAR HEMOGLOBIN 29.4 pg (27.0-33.0); MEAN CORPUSCULAR HGB CONC 31.4 g/dl (32.0-36.5); MEAN CORPUSCULAR VOLUME 93.5 fl (80.0-96.0); PLATELET COUNT, AUTOMATED 319 10^3/uL (150-450); RED BLOOD COUNT 2.79 10^6/uL (4.30-6.10); WHITE BLOOD COUNT 14.1 10^3/uL (4.0-10.0)
[2020-11-23 08:00] VITALS: BP 122/73
[2020-11-23] MEDS: NS 1,000 ML IV SCH ×3 (08:00→20:13)
[2020-11-23] MEDS: HumaLOG INSULIN (NovoLOG) PER UNIT SC SCH ×5 (08:00→21:00)
[2020-11-23 08:18] LABS: ALBUMIN 2.3 GM/DL (3.2-5.2); ALT/SGPT 19 U/L (12-78); BLOOD UREA NITROGEN 12 MG/DL (7-18); CARBON DIOXIDE LEVEL 22 MEQ/L (21-32); CHLORIDE LEVEL 105 MEQ/L (98-107); CREATININE FOR GFR 1.49 MG/DL (0.70-1.30); GLOMERULAR FILTRATION RATE > 60.0 (>60); GLUCOSE, FASTING 209 MG/DL (70-100); MAGNESIUM LEVEL 1.7 MG/DL (1.8-2.4); SODIUM LEVEL 136 MEQ/L (136-145); TOTAL PROTEIN 5.7 GM/DL (6.4-8.2); VANCOMYCIN LEVEL TROUGH 20.2 UG/ML (10.0-20.0)
[2020-11-23 09:18] LABS: LYMPHOCYTES 13 % (16-44); MONOCYTES 7 % (0-5); NEUTROPHILS 73 % (28-66)
[2020-11-23 09:21] LABS: PLATELET ESTIMATE NORMAL (NORMAL)
[2020-11-23] MEDS: LEVALBUTEROL 1.25 MG/0.5 ML CONCENTRATE NEB NEB PRN (09:21)
[2020-11-23] MEDS: SENOKOT S TAB PO SCH ×2 (09:21→20:13)
[2020-11-23] MEDS: APIXABAN 2.5 MG TAB (ELIQUIS) PO SCH ×2 (09:21→20:14)
[2020-11-23] MEDS: SERTRALINE 100 MG TAB PO SCH (09:21)
[2020-11-23 09:22] LABS: ANISOCYTOSIS 1+; MICROCYTOSIS 1+
[2020-11-23 12:00] VITALS: BP 143/98
--- NOTE | 2020-11-23 12:44 | IPNPDOC ---
Text Note Date of Service The patient was seen on 11/23/20. NOTE Subjective: No any acute events overnight. Patient stated that he feels better today Objective: GENERAL APPEARANCE: NAD HEENT: no scleral icterus, no JVD, EOMI CARDIOVASCULAR: Irregularly irregular, tachycardia at rate 120 LUNGS: Diminished lung sounds bilaterally ABDOMEN: Tenderness of right upper quadrant MUSCULOSKELETAL: no cyanosis, no swelling INTEGUMENT: no generalized pallor NEUROLOGICAL: cranial nerve function from 2-12 intact intact, follows commands, speech not dysarthric Assessment and plan Patient is 49-year-old male with a past medical history of stage IV lung cancer squamous cell, diabetes mellitus, history of clot in the right chest port, hyperlipidemia, insomnia, history of tobacco use, depression admitted for further treatment of lung abscess with multifocal PNA, sepsis. Sepsis secondary to multifocal pneumonia and lung abscess with pleural effusion complicated with Stage IV lung cancer CT was done and showed Large right lower lobe pulmonary abscess suspected measuring 8 x 7 x 7 cm with adjacent pleural effusion, and lung consolidation suggesting multifocal pneumonia. This has progressed since the prior CT Continue broad-spectrum antibiotics vancomycin IV and Zosyn IV Dr. Duong on admission was contacted by ER physician, he recommended conservative treatment with antibiotics. Previous hospitalist discussed the case with Dr. Gary (pulmonary) who agrees with treatment. Blood culture positive for gram-positive cocci . Repeated blood culture negative Continue IV fluid Right side pleural effusion likely 2/2 to abscess, lung CA -CT above -BNP 189 -ED contacted Dr. Duong (CT surgery), no need to tap but to c/w abx for now Stage IV lung cancer squamous cell -Prior tobacco use, diagnosed 09/2020 On palliative chemotherapy -Follows with Dr. Armijo at [facility] Appreciate/agree with oncologist consult Diabetes mellitus Diabetes diet Insulin sliding scale Atrial fibrillation with rapid ventricular rate Continue Eliquis Continue metoprolol 25 mg every 6 hours Lopressor IV when necessary Hyperlipidemia C/w statin Depression C/w home med VS,Fishbone, I+O VS, Fishbone, I+O Laboratory Tests 11/22/20 17:33 11/23/20 07:36 Vital Signs Date Time Temp Pulse Resp B/P (MAP) Pulse Ox O2 Delivery O2 Flow Rate FiO2 11/23/20 12:00 97.3 111 24 143/98 (113) 93 Nasal Cannula 1.0 I&O- Last 24 Hours up to 6 AM 11/23/20 06:00 Intake Total 1930 ml Output Total 750 ml Balance 1180 ml MAURILIO WALL DO Nov 23, 2020 12:43
[2020-11-23 16:00] VITALS: BP 142/96
[2020-11-23 20:00] VITALS: BP 138/90
[2020-11-23] MEDS: SIMVASTATIN 10 MG TAB PO SCH (20:14)
[2020-11-24] VITALS: BP 141/84
[2020-11-24] MEDS: PIPERACILLIN/TAZOBACTAM SOD 3.375 GM in D5W MINI-BAG PLUS 50 ML IV SCH ×2 (00:16→04:44)
[2020-11-24] MEDS: METOPROLOL TART 25 MG TABLET PO SCH ×5 (00:17→21:58)
[2020-11-24] MEDS: LEVALBUTEROL 1.25 MG/0.5 ML CONCENTRATE NEB NEB SCH ×4 (01:43→19:13)
[2020-11-24 04:00] VITALS: BP 136/90
[2020-11-24] MEDS: NS 1,000 ML IV SCH (06:25)
[2020-11-24 06:52] LABS: HEMATOCRIT 23.7 % (42.0-52.0); HEMOGLOBIN 7.7 g/dl (13.5-17.5); MEAN CORPUSCULAR HEMOGLOBIN 29.5 pg (27.0-33.0); MEAN CORPUSCULAR HGB CONC 32.5 g/dl (32.0-36.5); MEAN CORPUSCULAR VOLUME 90.8 fl (80.0-96.0); PLATELET COUNT, AUTOMATED 366 10^3/uL (150-450); RED BLOOD COUNT 2.61 10^6/uL (4.30-6.10); WHITE BLOOD COUNT 16.1 10^3/uL (4.0-10.0)
[2020-11-24 07:08] LABS: ALBUMIN 2.2 GM/DL (3.2-5.2); ALT/SGPT 24 U/L (12-78); BLOOD UREA NITROGEN 16 MG/DL (7-18); CALCIUM LEVEL 8.9 MG/DL (8.5-10.1); CARBON DIOXIDE LEVEL 20 MEQ/L (21-32); CHLORIDE LEVEL 104 MEQ/L (98-107); CREATININE FOR GFR 1.56 MG/DL (0.70-1.30); GLOMERULAR FILTRATION RATE > 60.0 (>60); GLUCOSE, FASTING 203 MG/DL (70-100); POTASSIUM SERUM 3.7 MEQ/L (3.5-5.1); SODIUM LEVEL 138 MEQ/L (136-145); TOTAL PROTEIN 5.4 GM/DL (6.4-8.2)
[2020-11-24 08:00] VITALS: BP 140/84
[2020-11-24] MEDS: APIXABAN 2.5 MG TAB (ELIQUIS) PO SCH ×2 (08:39→21:54)
[2020-11-24] MEDS: HumaLOG INSULIN (NovoLOG) PER UNIT SC SCH ×4 (08:39→21:00)
[2020-11-24] MEDS: SERTRALINE 100 MG TAB PO SCH (08:39)
[2020-11-24] MEDS: SENOKOT S TAB PO SCH ×3 (08:39→21:54)
[2020-11-24] MEDS: cefTRIAXone SOD 2 GM in D5W MINI-BAG PLUS 50 ML IV SCH (09:04)
[2020-11-24] MEDS: LEVALBUTEROL 1.25 MG/0.5 ML CONCENTRATE NEB NEB PRN (11:07)
[2020-11-24 12:00] VITALS: BP 138/88
--- NOTE | 2020-11-24 14:05 | IPNPDOC ---
Text Note Date of Service The patient was seen on 11/24/20. NOTE Subjective: No any acute events overnight. No fever overnight Objective: GENERAL APPEARANCE: NAD HEENT: no scleral icterus, no JVD, EOMI CARDIOVASCULAR: Irregularly irregular, tachycardia at rate 120 LUNGS: Diminished lung sounds bilaterally ABDOMEN: Tenderness of right upper quadrant MUSCULOSKELETAL: no cyanosis, no swelling INTEGUMENT: no generalized pallor NEUROLOGICAL: cranial nerve function from 2-12 intact intact, follows commands, speech not dysarthric Assessment and plan Patient is 49-year-old male with a past medical history of stage IV lung cancer squamous cell, diabetes mellitus, history of clot in the right chest port, hyperlipidemia, insomnia, history of tobacco use, depression admitted for further treatment of lung abscess with multifocal PNA, sepsis. Sepsis secondary to multifocal pneumonia and lung abscess with pleural effusion complicated with Stage IV lung cancer CT was done and showed Large right lower lobe pulmonary abscess suspected m easuring 8 x 7 x 7 cm with adjacent pleural effusion, and lung consolidation suggesting multifocal pneumonia. This has progressed since the prior CT Dr. Duong on admission was contacted by ER physician, he recommended conservative treatment with antibiotics. Previous hospitalist discussed the case with Dr. Gary (pulmonary) who agrees with treatment. Blood culture positive for Streptococcus pneumonia. Antibiotics has been changed to ceftriaxone IV Right side pleural effusion likely 2/2 to abscess, lung CA -CT above -BNP 189 -ED contacted Dr. Duong (CT surgery), no need to tap but to c/w abx for now Stage IV lung cancer squamous cell -Prior tobacco use, diagnosed 09/2020 On palliative chemotherapy -Follows with Dr. Armijo at [facility] Appreciate/agree with oncologist consult Diabetes mellitus Diabetes diet Insulin sliding scale Atrial fibrillation with rapid ventricular rate Continue Eliquis Continue metoprolol 25 mg every 6 hours Lopressor IV when necessary Hyperlipidemia C/w statin Depression C/w home med VS,Fishbone, I+O VS, Fishbone, I+O Laboratory Tests 11/24/20 06:17 Vital Signs Date Time Temp Pulse Resp B/P (MAP) Pulse Ox O2 Delivery O2 Flow Rate FiO2 11/24/20 12:00 97.4 111 26 138/88 (105) 96 Room Air 11/24/20 00:00 1.0 I&O- Last 24 Hours up to 6 AM 11/24/20 06:00 Intake Total 2320 ml Output Total 900 ml Balance 1420 ml DROZHZHIN,MAURILIO DO Nov 24, 2020 14:05
[2020-11-24 16:00] VITALS: BP 130/92
[2020-11-24 20:00] VITALS: BP 135/86
[2020-11-24] MEDS: SIMVASTATIN 10 MG TAB PO SCH (21:54)
[2020-11-25] VITALS: BP 143/94
[2020-11-25] MEDS: LEVALBUTEROL 1.25 MG/0.5 ML CONCENTRATE NEB NEB SCH ×2 (01:25→07:42)
[2020-11-25 04:00] VITALS: BP 130/80
[2020-11-25 05:27] LABS: BASO % 0.2 % (0.0-1.0); EOS # 0.1 10^3/uL (0.0-0.5); EOS % 0.8 % (0.0-3.0); HEMATOCRIT 26.7 % (42.0-52.0); HEMOGLOBIN 8.7 g/dl (13.5-17.5); LYMPH # 1.6 10^3/uL (1.5-5.0); LYMPH % 11.1 % (24.0-44.0); MEAN CORPUSCULAR HEMOGLOBIN 29.4 pg (27.0-33.0); MEAN CORPUSCULAR HGB CONC 32.6 g/dl (32.0-36.5); MEAN CORPUSCULAR VOLUME 90.2 fl (80.0-96.0); MONO # 2.1 10^3/uL (0.0-0.8); MONO % 14.5 % (0.0-5.0); NEUTROPHILS # 10.5 10^3/uL (1.5-8.5); NEUTROPHILS % 72.5 % (36.0-66.0); PLATELET COUNT, AUTOMATED 434 10^3/uL (150-450); RED BLOOD COUNT 2.96 10^6/uL (4.30-6.10); WHITE BLOOD COUNT 14.5 10^3/uL (4.0-10.0)
[2020-11-25 05:52] LABS: ALBUMIN 2.1 GM/DL (3.2-5.2); ALT/SGPT 35 U/L (12-78); BILIRUBIN,TOTAL 0.9 MG/DL (0.2-1.0); BLOOD UREA NITROGEN 19 MG/DL (7-18); CALCIUM LEVEL 9.2 MG/DL (8.5-10.1); CARBON DIOXIDE LEVEL 21 MEQ/L (21-32); CHLORIDE LEVEL 105 MEQ/L (98-107); CREATININE FOR GFR 1.49 MG/DL (0.70-1.30); GLOMERULAR FILTRATION RATE > 60.0 (>60); GLUCOSE, FASTING 168 MG/DL (70-100); MAGNESIUM LEVEL 1.9 MG/DL (1.8-2.4); POTASSIUM SERUM 3.7 MEQ/L (3.5-5.1); SODIUM LEVEL 137 MEQ/L (136-145); TOTAL PROTEIN 5.9 GM/DL (6.4-8.2)
[2020-11-25 06:42] VITALS: BP 138/91
[2020-11-25] MEDS: METOPROLOL TART 25 MG TABLET PO SCH (06:42)
[2020-11-25] MEDS ORDERED: SODIUM CHLORIDE 0.9% INJ 10 ML SYR IV PRN (07:00)
[2020-11-25 08:00] VITALS: BP 134/77
[2020-11-25] MEDS: cefTRIAXone SOD 2 GM in D5W MINI-BAG PLUS 50 ML IV SCH (08:41)
[2020-11-25] MEDS: HumaLOG INSULIN (NovoLOG) PER UNIT SC SCH ×2 (08:41→12:15)
[2020-11-25] MEDS: SENOKOT S TAB PO SCH (08:42)
[2020-11-25] MEDS: APIXABAN 2.5 MG TAB (ELIQUIS) PO SCH (08:42)
[2020-11-25] MEDS: SERTRALINE 100 MG TAB PO SCH (08:42)
[2020-11-25] MEDS ORDERED: SODIUM CHLORIDE 0.9% INJ 10 ML SYR IV SCH (09:00)
--- NOTE | 2020-11-25 10:35 | CR ---
CONSULTATION DATE: 11/24/2020 Asked to consult by hospitalist for pneumococcal pneumonia with abscess. 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 The patient follows up with Dr. Armijo and was seen on November 15. The patient has failed multiple previous treatment, including pembrolizumab four cycles that was stopped 03/22/2020. He was then switched to docetaxel and Cyramza, which also failed, and now he is on weekly Navelbine that he received on November 15. The patient came to the emergency room complaining of increasing shortness of breath, fever, chills at home, worse coughing, especially when lying down. He has had symptoms for at least 3 days prior to admission. He denied having chest pain, nausea, vomiting, diarrhea, or sick contacts. He also complained of decreased appetite and loss of taste. In the emergency room (ER) he had a fever of 101.9 with a pulse of 150. Blood pressure was slightly elevated. He had lactic acidosis. His white count was 11.9. Patient had a positive respiratory panel for rhinovirus/enterovirus. COVID-19 was negative. He received intravenous (IV) Zosyn initially. Blood cultures were positive for pneumococcus, and he was switched to IV Rocephin [address] showed a large right lower lobe abscess, measuring 8 x 7 x 7 cm with a pleural effusion. The patient is known to have a right lower lobe necrotic cavitary lesion from his malignancy that measures 5 x 3.6 cm in October 2020. MEDICAL HISTORY: 1. Stage IV lung cancer, poorly differentiated squamous cell carcinoma, diagnosed August 2019, stage IVB, currently on weekly Navelbine. 2. Diabetes. 3. History of thrombosis of his right chest [id number]-[id number]. 4. Hyperlipidemia. 5. Tobacco abuse. 6. Depression. SURGICAL HISTORY: 1. Right chest port placement. 2. Bronchoscopy done by Dr. Shaw 08/18/2019. FAMILY HISTORY: Father had cancer. at 61. Mother had uterine cancer. SOCIAL HISTORY: Quit smoking 2 years ago. He is . Lives with his in [place]. They are both on disability. Denies alcohol or drug use. His primary care provider is Kole Perez in [place]. ALLERGIES: No known drug allergies. MEDICATIONS: - Rocephin 2 grams IV every 24 - metoprolol 50 mg by mouth every 8 hours - Tramadol as needed - Zoloft 100 mg by mouth daily - lorazepam as needed - Zosyn 3.375 grams IV Q6 hours received a total of 3 days. - apixaban 2.5 mg by mouth twice a day - Senokot one tablet by mouth twice a day, which has been held because of diarrhea - simvastatin 10 mg by mouth every night - Xopenex as needed LABORATORY DATA: White count 16.1, hemoglobin 7.7, hematocrit 23.7, platelets 366. Sodium 138, potassium 3.7, chloride 104, bicarbonate 20, BUN 16, creatinine 1.56, glucose 203, calcium 8.9. AST 18, ALT 24, alkaline phosphatase 86, total protein 5.4, albumin 2.2. Procalcitonin 4.27. TSH 0.24. Vancomycin trough 20.2. Methicillin-resistant Staphylococcus aureus (MRSA) non-detected. Blood culture November 21 was positive for pneumococcus in two different cultures, resistant to clindamycin, erythromycin. RAMIN= 0.5. Tetracycline more than 16. Repeat blood cultures on November 22 were no growth after 48 hours. IMAGING DATA: CT angiogram showed an 8 x 7 x 7 cm large right lower lobe abscess with pleural effusion and lung consolidation. Mediastinal and right hilar adenopathy, neoplastic. IMPRESSION: This is a 49-year-old gentleman with a poorly differentiated squamous cell carcinoma, stage IVB, who presents with fever, worsening cough, and shortness of breath. Was found to have pneumococcal pneumonia with bacteremia and an abscess probably in the area of the cavitary cancer. Patient has improved with IV antibiotics and is currently on IV Rocephin 2 grams every 24 hours. His white count is increasing, but he is no hypoxic, and he is afebrile. Review of medications he received at the cancer center on November 15 includes Navelbine, Decadron 10 mg IV. I do not think he received Neupogen. I will discuss that with Dr. Armijo. PLAN: Access his [id number]-Whdq and use his Fnzegh-V-Hvve for IV antibiotics. Switch IV Rocephin 2 grams daily. Agree with discontinuing Zosyn. I would recommend the patient be treated with at least 2 weeks of IV Rocephin through his port and then switching him to an oral antibiotic possibly for a total of 6 weeks, as he has a lung abscess involving his necrotic lung cancer.I will review CT chest with radiology tomorrow. Consult patient and family services (PFS) for home IV antibiotic when clinically stable. DORITA
[2020-11-25] MEDS ORDERED: LEVO500T3 PO (11:24)
[2020-11-25 12:00] VITALS: BP 142/91
--- NOTE | 2020-11-25 16:07 | DS.PDOC ---
Discharge Summary General Date of Admission Nov 21, 2020 at 18:10 Date of Discharge 11/25/20 Discharge Summary PROCEDURES PERFORMED DURING STAY: [None]. ADMITTING DIAGNOSES: Sepsis Right side pleural effusion likely 2/2 to abscess, lung CA Stage IV lung cancer squamous cell Diabetes mellitus Atrial fibrillation with rapid ventricular rate Hyperlipidemia Depression DISCHARGE DIAGNOSES: Sepsis Right side pleural effusion likely 2/2 to abscess, lung CA Stage IV lung cancer squamous cell Diabetes mellitus Atrial fibrillation with rapid ventricular rate Hyperlipidemia Depression COMPLICATIONS/CHIEF COMPLAINT: Pneumonia,Pulmonary Abscess. HISTORY OF PRESENT ILLNESS:Patient is 49-year-old male with a past medical history of stage IV lung cancer squamous cell, diabetes mellitus, history of clot in the right chest port, hyperlipidemia, insomnia, history of tobacco use, depression admitted for further treatment of lung abscess with multifocal PNA, sepsis. HOSPITAL COURSE: During hospital stay the following issues addressed Sepsis secondary to multifocal pneumonia and lung abscess with pleural effusion comp licated with Stage IV lung cancer CT was done and showed Large right lower lobe pulmonary abscess suspected measuring 8 x 7 x 7 cm with adjacent pleural effusion, and lung consolidation suggesting multifocal pneumonia. This has progressed since the prior CT Dr. Duong on admission was contacted by ER physician, he recommended conservative treatment with antibiotics. Previous hospitalist discussed the case with Dr. Gary (pulmonary) who agrees with treatment. Blood culture positive for Streptococcus pneumonia. Antibiotics has been changed to ceftriaxone IV. By mouth levofloxacin in the outpatient settings of 14 days Right side pleural effusion likely 2/2 to abscess, lung CA -CT above -BNP 189 -ED contacted Dr. Duong (CT surgery), no need to tap but to c/w abx for now Stage IV lung cancer squamous cell -Prior tobacco use, diagnosed 09/2020 On palliative chemotherapy -Follows with Dr. Armijo at [facility] Diabetes mellitus Diabetes diet Insulin sliding scale Atrial fibrillation with rapid ventricular rate Continue Eliquis Continue metoprolol 25 mg every 6 hours Lopressor IV when necessary Hyperlipidemia C/w statin Depression C/w home med DISCHARGE MEDICATIONS: Please see below. ALLERGIES: Please see below. PHYSICAL EXAMINATION ON DISCHARGE: VITAL SIGNS: Please see below. GENERAL APPEARANCE: NAD HEENT: no scleral icterus, no JVD, EOMI CARDIOVASCULAR: Irregularly irregular, tachycardia at rate 120 LUNGS: Diminished lung sounds bilaterally ABDOMEN: Tenderness of right upper quadrant MUSCULOSKELETAL: no cyanosis, no swelling INTEGUMENT: no generalized pallor NEUROLOGICAL: cranial nerve function from 2-12 intact intact, follows commands, speech not dysarthric LABORATORY DATA: Please see below. IMAGING: See below PROGNOSIS: Poor ACTIVITY: [As tolerated]. DIET: Regular DISPOSITION: 06 Home Health Service. ITEMS TO FOLLOWUP ON ON OUTPATIENT: With oncologist and PCP DISCHARGE CONDITION: [Stable]. TIME SPENT ON DISCHARGE: Greater than 40 minutes. Vital Signs/I&Os Vital Signs Date Time Temp Pulse Resp B/P (MAP) Pulse Ox O2 Delivery O2 Flow Rate FiO2 11/25/20 12:00 97.7 109 22 142/91 (108) 96 Room Air 11/24/20 00:00 1.0 I&O- Last 24 Hours up to 6 AM 11/25/20 06:00 Intake Total 1885 ml Output Total 675 ml Balance 1210 ml Laboratory Data Labs 24H Laboratory Tests 2 11/24/20 16:45: Bedside Glucose (Misc Panel) 138H 11/24/20 21:56: Bedside Glucose (Misc Panel) 144H 11/25/20 05:01: Immature Granulocyte % (Auto) 0.9, Neutrophils (%) (Auto) 72.5H, Lymphocytes (%) (Auto) 11.1L, Monocytes (%) (Auto) 14.5H, Eosinophils (%) (Auto) 0.8, Basophils (%) (Auto) 0.2, Neutrophils # (Auto) 10.5H, Lymphocytes # (Auto) 1.6, Monocytes # (Auto) 2.1H, Eosinophils # (Auto) 0.1, Basophils # (Auto) 0.0, Nucleated Red Blood Cells % (auto) 0.0, Anion Gap 11, Glomerular Filtration Rate > 60.0, Calcium Level 9.2, Magnesium Level 1.9, Total Bilirubin 0.9, Aspartate Amino Transf (AST/SGOT) 30, Alanine Aminotransferase (ALT/SGPT) 35, Alkaline Phosphatase 122H, Total Protein 5.9L, Albumin 2.1L, Albumin/Globulin Ratio 0.6 11/25/20 11:39: Bedside Glucose (Misc Panel) 163H CBC/BMP Laboratory Tests 11/25/20 05:01 FSBS Laboratory Tests Test 11/24/20 16:45 11/24/20 21:56 11/25/20 11:39 Range/Units Bedside Glucose (Misc Panel) 138 144 163 70-105 MG/DL Microbiology Microbiology 11/22/20 Blood Culture - Preliminary, Resulted No Growth after 72 hours. All specime... 11/22/20 Blood Culture - Preliminary, Resulted No Growth after 72 hours. All specime... 11/21/20 Blood Culture - Final, Complete Streptococcus Pneumoniae 11/21/20 Group A Streptococcus Screen (RAMIN) - Final, Complete 11/21/20 Respiratory Virus Panel (PCR) (RAMIN) - Final, Complete Human Rhinovirus/Enterovirus 11/21/20 Blood Culture - Final, Complete Streptococcus Pneumoniae Discharge Medications Scheduled Apixaban (Eliquis) 2.5 Mg Tablet, 2.5 MG PO BID, (Reported) Cannabidiol (Cbd Oil) Btl, 1 DOSE PO ASDIRECTED, (Reported) Glipizide (Glipizide) 5 Mg Tablet, 5 MG PO DAILY, (Reported) Levofloxacin (Levofloxacin) 500 Mg Tablet, 500 MG PO DAILY Metformin HCl (Metformin HCl) 1,000 Mg Tablet, 1,000 MG PO BID, (Reported) Sennosides/Docusate Sodium (Colace 2-in-1 Tablet) 1 Each Tablet, 1 TAB PO BID Sertraline HCl (Sertraline HCl) 100 Mg Tablet, 100 MG PO DAILY, (Reported) Simvastatin (Simvastatin) 10 Mg Tablet, 10 MG PO QHS, (Reported) Umeclidinium [place] (Incruse Ellipta) 62.5 Mcg Blst.w.dev, 1 PUFF INH DAILY, (Reported) Scheduled PRN Albuterol Sulfate (Albuterol Sulfate Hfa) 8.5 Gm Hfa.aer.ad, 2 PUFFS INH Q4-6HP PRN for SOB/WHEEZING, (Reported) Melatonin (Melatonin) 5 Mg Tablet, 10 MG PO QHS PRN for INSOMNIA, (Reported) Ondansetron HCl (Ondansetron HCl) 8 Mg Tablet, 1 TAB PO Q8HP PRN for NAUSEA OR VOMITING Prochlorperazine Maleate (Prochlorperazine Maleate) 10 Mg Tablet, 10 MG PO Q6H PRN for NAUSEA OR VOMITING Allergies Coded Allergies: No Known Allergies (Unverified , 08/14/19) MAURILIO WALL DO Nov 25, 2020 16:07
--- NOTE | 2020-11-27 10:55 | IPN ---
PROGRESS NOTE DATE: 11/25/2020 Tomer seems to be doing better today. He has not had any fever or chills. He still has a cough productive mostly of whitish phlegm. No hemoptysis. He denies any chest pain. Temperature 97.7, pulse 109, respirations 22, blood pressure 142/91, oxygen saturation 96% on room air. HEART: Normal S1, S2. No murmurs. LUNGS: Diminished breath sounds bilaterally, a few crackles at the right base. ABDOMEN: Soft, nontender. No hepatosplenomegaly. EXTREMITIES: No clubbing, cyanosis or edema. NEUROLOGIC: Intact except for some resting tremulousness that the patient states he always has. LABORATORY DATA: White count 14.5, hemoglobin 8.7, hematocrit 26.7, platelets 434, 72% neutrophils, 11% lymphocytes, 14% monocytes. Sodium 137, potassium 3.7, chloride 105, bicarbonate 21, BUN 19, creatinine 1.49, glucose 168, calcium 9.2, magnesium 1.9. AST 30, ALT 35, alkaline phosphatase 122, total protein 5.9, albumin 2.1. Blood cultures on November 22, 2020 were no growth after 72 hours. Blood cultures on November 21, 2020 were positive for pneumococcus sensitive to levofloxacin with minimum inhibitory concentration (RAMIN) of 0. 5. CT chest was reviewed with Dr. Cosme. There was cavitary necrotic mass, previously about 5 cm now at least 8 cm IMPRESSION: 1. Pneumococcal pneumonia with abscess in the cavitary lung cancer on intravenous (IV) Zosyn followed by Rocephin. Patient had very poor prognosis because of his malignancy and would like to go home. I have agreed with Dr. Mars that oral Levaquin would be a good option for him. Discontinue IV Rocephin and treat with levofloxacin 750 mg daily for two weeks. 2. 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 That will need to be on hold for the next couple of weeks with the pneumonia. PLAN: Discharge patient home on oral Levaquin 750 mg by mouth daily times two weeks. Follow up with oncology. For now, chemotherapy on hold until he is seen by Dr. Armijo, who already saw him in the hospital. [facility]
[2020-12-06] MEDS ORDERED: MYLA1SUS PO (08:53)
[2020-12-06] MEDS ORDERED: OMEP-218 PO (08:53)
== END 2020-11-25 14:38 | disposition home health service (06) | DRG 871 ==
LOC: M ED 14:05 → M ED INP 18:10 → M MSPAV 18:58 → M PCU 11-22 16:42
PROVIDERS: ADMIT Internal Medicine; ATTEND Internal Medicine
DX: A40.3 Sepsis due to Streptococcus pneumoniae (principal); J85.1 Abscess of lung with pneumonia; J90 Pleural effusion, not elsewhere classified; C34.31 Malignant neoplasm of lower lobe, right bronchus or lung; E11.9 Type 2 diabetes mellitus without complications; E78.5 Hyperlipidemia, unspecified; G47.00 Insomnia, unspecified; F32.9 Major depressive disorder, single episode, unspecified; Z11.52 Encounter for screening for COVID-19; Z87.891 Personal history of nicotine dependence; Z79.84 Long term (current) use of oral hypoglycemic drugs; Z79.899 Other long term (current) drug therapy; Z86.718 Personal history of other venous thrombosis and embolism; Z79.891 Long term (current) use of opiate analgesic; Z79.01 Long term (current) use of anticoagulants

== ENCOUNTER 2020-12-15 11:11 | Inpatient (IN) | payer MEDICARE, MEDICAID ==
[~2020-12-15] VITALS: Ht 175.3 cm; Wt 98.5 kg
[~2020-12-15 11:11] MED LIST changes: -CVS10CAP8 PO; -D31000TA2 PO
--- OUTSIDE RECORDS SUMMARY | 2020-12-15 11:18 | CCD ---
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 Basophils% (Auto) 0.0-2.0 Normal (applies to non-numeri c results) [facility] Immature Granulocytes% (Auto) 0.0-2.0 Normal (raquel lies to non-numeric results) [facility] Neutrophils# (Auto) 1.50-6.20 Normal (applies to non-nume tita results) [facility] Lymphocytes# (Auto) 1.20-4.00 Normal (applies to non-nume tita results) [facility] Monocytes# (Auto) 0.00-0.90 Normal (applies to non-numeri c results) [facility] Eosinophils# (Auto) 0.00-0.50 Above high normal [facility] Basophils# (Auto) 0.00-0.20 Normal (applies to non-numeri c results) [facility] Immature Granulocytes# (Auto) 0.00-7.00 No rmal (applies to non-numeric results) [facility] Slide Reviewed By Normal (applies to non-numeri c results) [facility] Slide has been reviewed and findings con firmed by a technologist/hvac field service technician. ID Date Data Source [id number] 07/11/2020 09:14:00 AM EDT [facility] Name Value Range Interpretation Code Description Data Keysha rce(s) Supporting Document(s) Sodium 139 mmol/L 136-145 Normal (applies to non-numeric resul ts) [facility] Potassium 3.5-5.1 Normal (applies to non-numeric resul ts) [facility] Chloride 102 mmol/L 98-107 Normal (applies to non-numeric resul ts) [facility] Carbon Dioxide CO2 21-32 Normal (applies to non-numer ic results) [facility] Anion Gap 5.0-16.0 Normal (applies to non-numeric resul ts) [facility] BUN 11 mg/dL 7-18 Normal (applies to non-numeric results) [facility] Creatinine,Serum 0.8-1.5 Normal (applies to non-numeric results) [facility] GFR >60 Normal (applies to non-numeric results) [facility] Glucose Level 173 mg/dL 60-99 Above high normal [facility] Reference range is only applicable when patient is fasting Note the following drug interference: Sulfasalazine Sulfapyridine Can see falsely depressed Can see falsely elevated result with up to 17% results with up to 11% decrease in measurement increase in measurement Recommend patients be collected for this test prior to administration of either drug. Calcium 8.5-10.1 Normal (applies to non-numeric resul ts) [facility] Bilirubin,Total 0.1-1.9 Normal (applies to non-numeric results) [facility] SGOT(AST) 23 U/L 15-37 Normal (applies to non-numeric resul ts) [facility] Note the following drug interference: Sulfasalazine Sulfapyridine Can see falsely depressed Can see falsely elevated result with up to 10% results with up to 10% decrease in measurement increase in measurement Recommend patients be collected for this test prior to administration of either drug. SGPT(ALT) 74 U/L 12-78 Normal (applies to non-numeric resul ts) [facility] Note the following drug interference: Sulfasalazine Sulfapyridine Can see falsely depressed Can see falsely elevated result with up to 29% results with up to 10% decrease in measurement increase in measurement Recommend patients be collected for this test prior to administration of either drug. Alkaline Phosphatase 64 U/L 38-126 Normal (applies to non-num martha results) [facility] can increase Alkaline Phosp le vels up to 2 times the normal adult value. Normal values for children and adolescents are 2 to 3 times the normal adult value. Total Protein 6.0-8.2 Normal (applies to non-numeric re sults) [facility] Albumin Level 3.4-5.0 Normal (applies to non-numeric re sults) [facility] ID Date Data Source [id number] 06/16/2020 03:28:00 PM EDT [facility] Name Value Range Interpretation Code Description Data Keysha rce(s) Supporting Document(s) Sodium 141 mmol/L 136-145 Normal (applies to non-numeric resul ts) [facility] Potassium 3.5-5.1 Normal (applies to non-numeric resul ts) [facility] Chloride 105 mmol/L 98-107 Normal (applies to non-numeric resul ts) [facility] Carbon Dioxide CO2 21-32 Normal (applies to non-numer ic results) [facility] Anion Gap 5.0-16.0 Normal (applies to non-numeric resul ts) [facility] BUN 10 mg/dL 7-18 Normal (applies to non-numeric results) [facility] Creatinine,Serum 0.8-1.5 Normal (applies to non-numeric results) [facility] GFR >60 Normal (applies to non-numeric results) [facility] Glucose Level 158 mg/dL 60-99 Above high normal [facility] Reference range is only applicable when patient is fasting Note the following drug interference: Sulfasalazine Sulfapyridine Can see falsely depressed Can see falsely elevated result with up to 17% results with up to 11% decrease in measurement increase in measurement Recommend patients be collected for this test prior to administration of either drug. Calcium 8.5-10.1 Normal (applies to non-numeric resul ts) [facility] Bilirubin,Total 0.1-1.9 Normal (applies to non-numeric results) [facility] SGOT(AST) 25 U/L 15-37 Normal (applies to non-numeric resul ts) [facility] Note the following drug interference: Sulfasalazine Sulfapyridine Can see falsely depressed Can see falsely elevated result with up to 10% results with up to 10% decrease in measurement increase in measurement Recommend patients be collected for this test prior to administration of either drug. SGPT(ALT) 74 U/L 12-78 Normal (applies to non-numeric resul ts) [facility] Note the following drug interference: Sulfasalazine Sulfapyridine Can see falsely depressed Can see falsely elevated result with up to 29% results with up to 10% decrease in measurement increase in measurement Recommend patients be collected for this test prior to administration of either drug. Alkaline Phosphatase 62 U/L 38-126 Normal (applies to non-num martha results) [facility] can increase Alkaline Phosp le vels up to 2 times the normal adult value. Normal values for children and adolescents are 2 to 3 times the normal adult value. Total Protein 6.0-8.2 Normal (applies to non-numeric re sults) [facility] Albumin Level 3.4-5.0 Normal (applies to non-numeric re sults) [facility] ID Date Data Source [id number] 06/16/2020 03:28:00 PM EDT [facility] Name Value Range Interpretation Code Description Data Keysha rce(s) Supporting Document(s) Thyroid Stimulate Hormone TSH 0.358-3.74 No rmal (applies to non-numeric results) [facility] ID Date Data Source [id number] 06/16/2020 03:28:00 PM EDT [facility] Name Value Range Interpretation Code Description Data Keysha rce(s) Supporting Document(s) Free T4 (Free Thyroxine) 0.76-1.46 Normal (applies to non -numeric results) [facility] ID Date Data Source [id number] 06/16/2020 02:32:00 PM EDT [facility] Name Value Range Interpretation Code Description Data Keysha rce(s) Supporting Document(s) White Blood Count 3.5-10.5 Normal (applies to non-numeri c results) [facility] Red Blood Count 4.30-5.70 Below low normal [facility] Hemoglobin 13.5-17.5 Below low normal [facility] Hematocrit 38.8-50.0 Below low normal [facility] Mean Corpuscular Volume 81.2-95.1 Normal (applies to non- numeric results) [facility] Mean Corpuscular Hgb 25.6-32.2 Normal (applies to non-num martha results) [facility] Mean Corpuscular Hgb Conc 32.0-36.0 Normal (applies to no n-numeric results) [facility] Red Cell Distribution Width 11.8-15.6 Normal (appli es to non-numeric results) [facility] Platelet Count 268 x10 3/uL 150-450 Normal (applies to non-numeric results) [facility] Mean Platelet Volume 9.4-12.4 Below low normal [facility] Neutrophils% (Auto) 31.0-71.0 Normal (applies to non-nume tita results) [facility] Lymphocytes% (Auto) 20.0-55.0 Normal (applies to non-nume tita results) [facility] Monocytes% (Auto) 4.0-12.0 Normal (applies to non-numeri c results) [facility] Eosinophils% (Auto) 1.0-8.0 Above high normal [facility] Basophils% (Auto) 0.0-2.0 Normal (applies to non-numeri c results) [facility] Immature Granulocytes% (Auto) 0.0-2.0 Normal (raquel lies to non-numeric results) [facility] Neutrophils# (Auto) 1.50-6.20 Normal (applies to non-nume tita results) [facility] Lymphocytes# (Auto) 1.20-4.00 Normal (applies to non-nume tita results) [facility] Monocytes# (Auto) 0.00-0.90 Normal (applies to non-numeri c results) [facility] Eosinophils# (Auto) 0.00-0.50 Above high normal [facility] Basophils# (Auto) 0.00-0.20 Normal (applies to non-numeri c results) [facility] Immature Granulocytes# (Auto) 0.00-7.00 No rmal (applies to non-numeric results) [facility] Slide Reviewed By Normal (applies to non-numeri c results) [facility] Slide has been reviewed and findings con firmed by a technologist/hvac field service technician. ID Date Data Source [id number] 05/27/2020 11:00:00 AM EDT [facility] Name Value Range Interpretation Code Description Data Keysha rce(s) Supporting Document(s) Sodium 139 mmol/L 136-145 Normal (applies to non-numeric resul ts) [facility] Potassium 3.5-5.1 Normal (applies to non-numeric resul ts) [facility] Chloride 102 mmol/L 98-107 Normal (applies to non-numeric resul ts) [facility] Carbon Dioxide CO2 21-32 Normal (applies to non-numer ic results) [facility] Anion Gap 5.0-16.0 Normal (applies to non-numeric resul ts) [facility] BUN 9 mg/dL 7-18 Normal (applies to non-numeric results) [facility] Creatinine,Serum 0.8-1.5 Normal (applies to non-numeric results) [facility] GFR >60 Normal (applies to non-numeric results) [facility] Glucose Level 155 mg/dL 60-99 Above high normal [facility] Reference range is only applicable when patient is fasting Note the following drug interference: Sulfasalazine Sulfapyridine Can see falsely depressed Can see falsely elevated result with up to 17% results with up to 11% decrease in measurement increase in measurement Recommend patients be collected for this test prior to administration of either drug. Calcium 8.5-10.1 Normal (applies to non-numeric resul ts) [facility] Bilirubin,Total 0.1-1.9 Normal (applies to non-numeric results) [facility] SGOT(AST) 20 U/L 15-37 Normal (applies to non-numeric resul ts) [facility] Note the following drug interference: Sulfasalazine Sulfapyridine Can see falsely depressed Can see falsely elevated result with up to 10% results with up to 10% decrease in measurement increase in measurement Recommend patients be collected for this test prior to administration of either drug. SGPT(ALT) 70 U/L 12-78 Normal (applies to non-numeric resul ts) [facility] Note the following drug interference: Sulfasalazine Sulfapyridine Can see falsely depressed Can see falsely elevated result with up to 29% results with up to 10% decrease in measurement increase in measurement Recommend patients be collected for this test prior to administration of either drug. Alkaline Phosphatase 66 U/L 38-126 Normal (applies to non-num martha results) [facility] can increase Alkaline Phosp le vels up to 2 times the normal adult value. Normal values for children and adolescents are 2 to 3 times the normal adult value. Total Protein 6.0-8.2 Normal (applies to non-numeric re sults) [facility] Albumin Level 3.4-5.0 Normal (applies to non-numeric re sults) [facility] ID Date Data Source [id number] 05/27/2020 11:00:00 AM EDT [facility] Name Value Range Interpretation Code Description Data Keysha rce(s) Supporting Document(s) Thyroid Stimulate Hormone TSH 0.358-3.74 No rmal (applies to non-numeric results) [facility] ID Date Data Source [id number] 05/27/2020 11:00:00 AM EDT [facility] Name Value Range Interpretation Code Description Data Keysha rce(s) Supporting Document(s) Free T4 (Free Thyroxine) 0.76-1.46 Normal (applies to non -numeric results) [facility] ID Date Data Source [id number] 05/27/2020 10:30:00 AM EDT [facility] Name Value Range Interpretation Code Description Data Keysha rce(s) Supporting Document(s) White Blood Count 3.5-10.5 Normal (applies to non-numeri c results) [facility] Red Blood Count 4.30-5.70 Below low normal [facility] Hemoglobin 13.5-17.5 Below low normal [facility] Hematocrit 38.8-50.0 Normal (applies to non-numeric resul ts) [facility] Mean Corpuscular Volume 81.2-95.1 Normal (applies to non- numeric results) [facility] Mean Corpuscular Hgb 25.6-32.2 Normal (applies to non-num martha results) [facility] Mean Corpuscular Hgb Conc 32.0-36.0 Normal (applies to no n-numeric results) [facility] Red Cell Distribution Width 11.8-15.6 Normal (appli es to non-numeric results) [facility] Platelet Count 246 x10 3/uL 150-450 Normal (applies to non-numeric results) [facility] Mean Platelet Volume 9.4-12.4 Below low normal [facility] Neutrophils% (Auto) 31.0-71.0 Normal (applies to non-nume tita results) [facility] Lymphocytes% (Auto) 20.0-55.0 Normal (applies to non-nume tita results) [facility] Monocytes% (Auto) 4.0-12.0 Normal (applies to non-numeri c results) [facility] Eosinophils% (Auto) 1.0-8.0 Above high normal [facility] Basophils% (Auto) 0.0-2.0 Normal (applies to non-numeri c results) [facility] Immature Granulocytes% (Auto) 0.0-2.0 Normal (raquel lies to non-numeric results) [facility] Neutrophils# (Auto) 1.50-6.20 Normal (applies to non-nume tita results) [facility] Lymphocytes# (Auto) 1.20-4.00 Normal (applies to non-nume tita results) [facility] Monocytes# (Auto) 0.00-0.90 Normal (applies to non-numeri c results) [facility] Eosinophils# (Auto) 0.00-0.50 Above high normal [facility] Basophils# (Auto) 0.00-0.20 Normal (applies to non-numeri c results) [facility] Immature Granulocytes# (Auto) 0.00-7.00 No rmal (applies to non-numeric results) [facility] ID Date Data Source [id number] 05/06/2020 05:40:00 PM EDT [facility] Name Value Range Interpretation Code Description Data Keysha rce(s) Supporting Document(s) UMALB Urine Creatinine result Normal (applies t o non-numeric results) [facility] Interpret with care as there is no estab lished reference range associated with this assay's methodology that pertains to this particular sex and/or age. UMALB Microalbumin,Ur result <1.7 [facility] UMALB Alb/Cre Ratio,Ur result Normal (applies t o non-numeric results) [facility] Test Performed By: [facility] [place] [facility] [address] [place] [address] Director: Gino Hoyt MD Reference Ranges for Microalbumin,spot: Normal <30 ug/mg creatinine Microalbuminuria 30-300 ug/mg creatinine Clinical Albuminuria >300 ug/mg creatinine ID Date Data Source [id number] 05/06/2020 05:16:00 PM EDT [facility] Name Value Range Interpretation Code Description Data [facility] rce(s) Supporting Document(s) Creatinine,Urine Normal (applies to non-numeric results) [facility] Interpret with care as there is no estab lished reference range associated with this assay's methodology that pertains to this particular sex and/or age. Microalbumin,Urine <1.7 Above high normal [facility] Albumin/Creatinine Ratio,Urine Normal (applies to non-numeric results) [facility] Test Performed By: [facility] [address] [place] [address] Director: Gino Hoyt MD Reference Ranges for Microalbumin,spot: Normal <30 ug/mg creatinine Microalbuminuria 30-300 ug/mg creatinine Clinical Albuminuria >300 ug/mg creatinine ID Date Data Source [id number] 05/06/2020 12:45:00 PM [facility] Name Value Range Interpretation Code Description Data [facility] rce(s) Supporting Document(s) Vitamin D, Total 30.0-100.0 Below low normal [facility] ID Date Data Source [id number] 05/06/2020 12:14:00 PM [facility] Name Value Range Interpretation Code Description Data [facility] rce(s) Supporting Document(s) Color,Urine Colorl-Dk Y Normal (applies to non-numeric res ults) [facility] Clarity,Urine Clear Normal (applies to non-numeric re sults) [facility] Specific [place],Urine 1.005-1.030 Normal (applies to non- numeric results) [facility] pH,Urine 5.0-8.0 Normal (applies to non-numeric resul ts) [facility] Protein,Urine Negative [facility] Glucose,Urine Negative [facility] [place] Ketones,Urine Negative [facility] Blood,Urine Negative Normal (applies to non-numeric resu lts) [facility] Bilirubin,Urine Negative Normal (applies to non-numeric results) [facility] Urobilinogen,Urine 0.2-1.0 Normal (applies to non-numer ic results) [facility] Leukocyte Esterase,Urine Negative Normal (applies to non -numeric results) [facility] Nitrite,Urine Negative Normal (applies to non-numeric re sults) [facility] RBC,Urine None Seen Normal (applies to non-numeric resul ts) [facility] WBC,Urine None Seen Normal (applies to non-numeric resul ts) [facility] Casts,Urine None Seen Normal (applies to non-numeric resu lts) [facility] Squamous Cells,Urine None Seen [facility] Amorphous Sediment,Urine None Seen [facility] Bacteria,Urine None Seen [facility] ital Mucus,Urine [facility] ID Date Data Source [id number] 05/06/2020 12:09:00 PM EDT [facility] Name Value Range Interpretation Code Description Data Keysha rce(s) Supporting Document(s) Sodium 140 mmol/L 136-145 Normal (applies to non-numeric resul ts) [facility] Potassium 3.5-5.1 Normal (applies to non-numeric resul ts) [facility] Chloride 104 mmol/L 98-107 Normal (applies to non-numeric resul ts) [facility] Carbon Dioxide CO2 21-32 Normal (applies to non-numer ic results) [facility] Anion Gap 5.0-16.0 Normal (applies to non-numeric resul ts) [facility] BUN 7 mg/dL 7-18 Normal (applies to non-numeric results) [facility] Creatinine,Serum 0.8-1.5 Normal (applies to non-numeric results) [facility] GFR >60 Normal (applies to non-numeric results) [facility] Glucose Level 202 mg/dL 60-99 Above high normal [facility] Reference range is only applicable when patient is fasting Note the following drug interference: Sulfasalazine Sulfapyridine Can see falsely depressed Can see falsely elevated result with up to 17% results with up to 11% decrease in measurement increase in measurement Recommend patients be collected for this test prior to administration of either drug. Calcium 8.5-10.1 Normal (applies to non-numeric resul ts) [facility] Bilirubin,Total 0.1-1.9 Normal (applies to non-numeric results) [facility] SGOT(AST) 23 U/L 15-37 Normal (applies to non-numeric resul ts) [facility] Note the following drug interference: Sulfasalazine Sulfapyridine Can see falsely depressed Can see falsely elevated result with up to 10% results with up to 10% decrease in measurement increase in measurement Recommend patients be collected for this test prior to administration of either drug. SGPT(ALT) 82 U/L 12-78 Above high normal [facility] Note the following drug interference: Sulfasalazine Sulfapyridine Can see falsely depressed Can see falsely elevated result with up to 29% results with up to 10% decrease in measurement increase in measurement Recommend patients be collected for this test prior to administration of either drug. Alkaline Phosphatase 62 U/L 38-126 Normal (applies to non-num martha results) [facility] can increase Alkaline Phosp le vels up to 2 times the normal adult value. Normal values for children and adolescents are 2 to 3 times the normal adult value. Total Protein 6.0-8.2 Normal (applies to non-numeric re sults) [facility] Albumin Level 3.4-5.0 Normal (applies to non-numeric re sults) [facility] ID Date Data Source [id number] 05/06/2020 12:09:00 PM EDT [facility] Name Value Range Interpretation Code Description Data Keysha rce(s) Supporting Document(s) Thyroid Stimulate Hormone TSH 0.358-3.74 No rmal (applies to non-numeric results) [facility] ID Date Data Source [id number] 05/06/2020 12:09:00 PM EDT [facility] Name Value Range Interpretation Code Description Data Keysha rce(s) Supporting Document(s) Free T4 (Free Thyroxine) 0.76-1.46 Normal (applies to non -numeric results) [facility] ID Date Data Source [id number] 05/06/2020 12:08:00 PM EDT [facility] Name Value Range Interpretation Code Description Data Keysha rce(s) Supporting Document(s) Triglycerides 76 mg/dL <150 Normal (applies to non-numeric re sults) [facility] Cholesterol 153 mg/dL 100-200 Normal (applies to non-numeric resu lts) [facility] LDL Cholesterol Calculated 95 0-130 Normal (applies to n on-numeric results) [facility] HDL Cholesterol 43 mg/dL 40-60 Normal (applies to non-numeric results) [facility] Cholesterol/HDL Ratio 3.6-6.7 Normal (applies to non-nu meric results) [facility] ID Date Data Source [id number] 05/06/2020 11:38:00 AM EDT [facility] Name Value Range Interpretation Code Description Data Keysha rce(s) Supporting Document(s) White Blood Count 3.5-10.5 Normal (applies to non-numeri c results) [facility] Red Blood Count 4.30-5.70 Below low normal [facility] Hemoglobin 13.5-17.5 Below low normal [facility] Hematocrit 38.8-50.0 Below low normal [facility] Mean Corpuscular Volume 81.2-95.1 Normal (applies to non- numeric results) [facility] Mean Corpuscular Hgb 25.6-32.2 Normal (applies to non-num martha results) [facility] Mean Corpuscular Hgb Conc 32.0-36.0 Normal (applies to no n-numeric results) [facility] Red Cell Distribution Width 11.8-15.6 Below low normal [facility] Platelet Count 263 x10 3/uL 150-450 Normal (applies to non-numeric results) [facility] Mean Platelet Volume 9.4-12.4 Below low normal [facility] Neutrophils% (Auto) 31.0-71.0 Normal (applies to non-nume tita results) [facility] Lymphocytes% (Auto) 20.0-55.0 Below low normal [facility] Monocytes% (Auto) 4.0-12.0 Normal (applies to non-numeri c results) [facility] Eosinophils% (Auto) 1.0-8.0 Normal (applies to non-nume tita results) [facility] Basophils% (Auto) 0.0-2.0 Normal (applies to non-numeri c results) [facility] Immature Granulocytes% (Auto) 0.0-2.0 Normal (raquel lies to non-numeric results) [facility] Neutrophils# (Auto) 1.50-6.20 Normal (applies to non-nume tita results) [facility] Lymphocytes# (Auto) 1.20-4.00 Below low normal [facility] Monocytes# (Auto) 0.00-0.90 Normal (applies to non-numeri c results) [facility] Eosinophils# (Auto) 0.00-0.50 Normal (applies to non-nume tita results) [facility] Basophils# (Auto) 0.00-0.20 Normal (applies to non-numeri c results) [facility] Immature Granulocytes# (Auto) 0.00-7.00 No rmal (applies to non-numeric results) [facility] ID Date Data Source [id number] 03/21/2020 10:51:00 AM EDT [facility] Name Value Range Interpretation Code Description Data Keysha rce(s) Supporting Document(s) Sodium 135 mmol/L 136-145 Below low normal [facility] Potassium 3.5-5.1 Normal (applies to non-numeric resul ts) [facility] Chloride 100 mmol/L 98-107 Normal (applies to non-numeric resul ts) [facility] Carbon Dioxide CO2 21-32 Normal (applies to non-numer ic results) [facility] Anion Gap 5.0-16.0 Normal (applies to non-numeric resul ts) [facility] BUN 10 mg/dL 7-18 Normal (applies to non-numeric results) [facility] Creatinine,Serum 0.8-1.5 Normal (applies to non-numeric results) [facility] GFR >60 Normal (applies to non-numeric results) [facility] Glucose Level 233 mg/dL 60-99 Above high normal [facility] Reference range is only applicable when patient is fasting Note the following drug interference: Sulfasalazine Sulfapyridine Can see falsely depressed Can see falsely elevated result with up to 17% results with up to 11% decrease in measurement increase in measurement Recommend patients be collected for this test prior to administration of either drug. Calcium 8.5-10.1 Normal (applies to non-numeric resul ts) [facility] Bilirubin,Total 0.1-1.9 Normal (applies to non-numeric results) [facility] SGOT(AST) 30 U/L 15-37 Normal (applies to non-numeric resul ts) [facility] Note the following drug interference: Sulfasalazine Sulfapyridine Can see falsely depressed Can see falsely elevated result with up to 10% results with up to 10% decrease in measurement increase in measurement Recommend patients be collected for this test prior to administration of either drug. SGPT(ALT) 73 U/L 12-78 Normal (applies to non-numeric resul ts) [facility] Note the following drug interference: Sulfasalazine Sulfapyridine Can see falsely depressed Can see falsely elevated result with up to 29% results with up to 10% decrease in measurement increase in measurement Recommend patients be collected for this test prior to administration of either drug. Alkaline Phosphatase 78 U/L 38-126 Normal (applies to non-num martha results) [facility] can increase Alkaline Phosp le vels up to 2 times the normal adult value. Normal values for children and adolescents are 2 to 3 times the normal adult value. Total Protein 6.0-8.2 Normal (applies to non-numeric re sults) [facility] Albumin Level 3.4-5.0 Normal (applies to non-numeric re sults) [facility] ID Date Data Source [id number] 03/21/2020 10:51:00 AM EDT [facility] Name Value Range Interpretation Code Description Data Keysha rce(s) Supporting Document(s) Thyroid Stimulate Hormone TSH 0.358-3.74 No rmal (applies to non-numeric results) [facility] ID Date Data Source [id number] 03/21/2020 10:51:00 AM EDT [facility] Name Value Range Interpretation Code Description Data Keysha rce(s) Supporting Document(s) Free T4 (Free Thyroxine) 0.76-1.46 Normal (applies to non -numeric results) [facility] ID Date Data Source [id number] 03/21/2020 10:23:00 AM EDT [facility] Name Value Range Interpretation Code Description Data Keysha rce(s) Supporting Document(s) White Blood Count 3.5-10.5 Normal (applies to non-numeri c results) [facility] Red Blood Count 4.30-5.70 Normal (applies to non-numeric results) [facility] Hemoglobin 13.5-17.5 Normal (applies to non-numeric resul ts) [facility] Hematocrit 38.8-50.0 Normal (applies to non-numeric resul ts) [facility] Mean Corpuscular Volume 81.2-95.1 Normal (applies to non- numeric results) [facility] Mean Corpuscular Hgb 25.6-32.2 Normal (applies to non-num martha results) [facility] Mean Corpuscular Hgb Conc 32.0-36.0 Normal (applies to no n-numeric results) [facility] Red Cell Distribution Width 11.8-15.6 Below low normal [facility] Platelet Count 285 x10 3/uL 150-450 Normal (applies to non-numeric results) [facility] Mean Platelet Volume 9.4-12.4 Below low normal [facility] Neutrophils% (Auto) 31.0-71.0 Normal (applies to non-nume tita results) [facility] Lymphocytes% (Auto) 20.0-55.0 Normal (applies to non-nume tita results) [facility] Monocytes% (Auto) 4.0-12.0 Normal (applies to non-numeri c results) [facility] Eosinophils% (Auto) 1.0-8.0 Normal (applies to non-nume tita results) [facility] Basophils% (Auto) 0.0-2.0 Normal (applies to non-numeri c results) [facility] Immature Granulocytes% (Auto) 0.0-2.0 Normal (raquel lies to non-numeric results) [facility] Neutrophils# (Auto) 1.50-6.20 Normal (applies to non-nume tita results) [facility] Lymphocytes# (Auto) 1.20-4.00 Above high normal [facility] Monocytes# (Auto) 0.00-0.90 Normal (applies to non-numeri c results) [facility] Eosinophils# (Auto) 0.00-0.50 Above high normal [facility] Basophils# (Auto) 0.00-0.20 Normal (applies to non-numeri c results) [facility] Immature Granulocytes# (Auto) 0.00-7.00 No rmal (applies to non-numeric results) [facility] ID Date Data Source [id number] 02/22/2020 11:13:00 AM EDT [facility] Name Value Range Interpretation Code Description Data Keysha rce(s) Supporting Document(s) Sodium 139 mmol/L 136-145 Normal (applies to non-numeric resul ts) [facility] Potassium 3.5-5.1 Normal (applies to non-numeric resul ts) [facility] Chloride 101 mmol/L 98-107 Normal (applies to non-numeric resul ts) [facility] Carbon Dioxide CO2 21-32 Normal (applies to non-numer ic results) [facility] Anion Gap 5.0-16.0 Normal (applies to non-numeric resul ts) [facility] BUN 12 mg/dL 7-18 Normal (applies to non-numeric results) [facility] Creatinine,Serum 0.8-1.5 Normal (applies to non-numeric results) [facility] GFR >60 Normal (applies to non-numeric results) [facility] Glucose Level 227 mg/dL 60-99 Above high normal [facility] Reference range is only applicable when patient is fasting Note the following drug interference: Sulfasalazine Sulfapyridine Can see falsely depressed Can see falsely elevated result with up to 17% results with up to 11% decrease in measurement increase in measurement Recommend patients be collected for this test prior to administration of either drug. Calcium 8.5-10.1 Normal (applies to non-numeric resul ts) [facility] Bilirubin,Total 0.1-1.9 Normal (applies to non-numeric results) [facility] SGOT(AST) 23 U/L 15-37 Normal (applies to non-numeric resul ts) [facility] Note the following drug interference: Sulfasalazine Sulfapyridine Can see falsely depressed Can see falsely elevated result with up to 10% results with up to 10% decrease in measurement increase in measurement Recommend patients be collected for this test prior to administration of either drug. SGPT(ALT) 88 U/L 12-78 Above high normal [facility] Note the following drug interference: Sulfasalazine Sulfapyridine Can see falsely depressed Can see falsely elevated result with up to 29% results with up to 10% decrease in measurement increase in measurement Recommend patients be collected for this test prior to administration of either drug. Alkaline Phosphatase 67 U/L 38-126 Normal (applies to non-num martha results) [facility] can increase Alkaline Phosp le vels up to 2 times the normal adult value. Normal values for children and adolescents are 2 to 3 times the normal adult value. Total Protein 6.0-8.2 Normal (applies to non-numeric re sults) [facility] Albumin Level 3.4-5.0 Normal (applies to non-numeric re sults) [facility] ID Date Data Source [id number] 02/22/2020 11:13:00 AM EDT [facility] Name Value Range Interpretation Code Description Data Keysha rce(s) Supporting Document(s) Thyroid Stimulate Hormone TSH 0.358-3.74 No rmal (applies to non-numeric results) [facility] ID Date Data Source [id number] 02/22/2020 11:13:00 AM EDT [facility] Name Value Range Interpretation Code Description Data Keysha rce(s) Supporting Document(s) Free T4 (Free Thyroxine) 0.76-1.46 Normal (applies to non -numeric results) [facility] ID Date Data Source [id number] 02/22/2020 10:17:00 AM EDT [facility] Name Value Range Interpretation Code Description Data Keysha rce(s) Supporting Document(s) White Blood Count 3.5-10.5 Normal (applies to non-numeri c results) [facility] Red Blood Count 4.30-5.70 Below low normal [facility] Hemoglobin 13.5-17.5 Below low normal [facility] Hematocrit 38.8-50.0 Normal (applies to non-numeric resul ts) [facility] Mean Corpuscular Volume 81.2-95.1 Normal (applies to non- numeric results) [facility] Mean Corpuscular Hgb 25.6-32.2 Normal (applies to non-num martha results) [facility] Mean Corpuscular Hgb Conc 32.0-36.0 Normal (applies to no n-numeric results) [facility] Red Cell Distribution Width 11.8-15.6 Normal (appli es to non-numeric results) [facility] Platelet Count 237 x10 3/uL 150-450 Normal (applies to non-numeric results) [facility] Mean Platelet Volume 9.4-12.4 Below low normal [facility] Neutrophils% (Auto) 31.0-71.0 Normal (applies to non-nume tita results) [facility] Lymphocytes% (Auto) 20.0-55.0 Normal (applies to non-nume tita results) [facility] Monocytes% (Auto) 4.0-12.0 Normal (applies to non-numeri c results) [facility] Eosinophils% (Auto) 1.0-8.0 Normal (applies to non-nume tita results) [facility] Basophils% (Auto) 0.0-2.0 Normal (applies to non-numeri c results) [facility] Immature Granulocytes% (Auto) 0.0-2.0 Normal (raquel lies to non-numeric results) [facility] Neutrophils# (Auto) 1.50-6.20 Normal (applies to non-nume tita results) [facility] Lymphocytes# (Auto) 1.20-4.00 Normal (applies to non-nume tita results) [facility] Monocytes# (Auto) 0.00-0.90 Normal (applies to non-numeri c results) [facility] Eosinophils# (Auto) 0.00-0.50 Normal (applies to non-nume tita results) [facility] Basophils# (Auto) 0.00-0.20 Normal (applies to non-numeri c results) [facility] Immature Granulocytes# (Auto) 0.00-7.00 No rmal (applies to non-numeric results) [facility] ID Date Data Source [id number] 02/01/2020 09:18:00 PM EDT [facility] Name Value Range Interpretation Code Description Data Keysha rce(s) Supporting Document(s) CEA result 0.2-5.0 Normal (applies to non-numeric resul ts) [facility] % Distribution of CEA 0 - 2.5 [...] be used interchangeably. ID Date Data Source [id number] 02/01/2020 08:14:00 PM EDT [facility] Name Value Range Interpretation Code Description Data Keysha rce(s) Supporting Document(s) CEA 0.2-5.0 Normal (applies to non-numeric results) [facility] % Distribution of CEA 0 [...] be used interchangeably. ID Date Data Source [id number] 02/01/2020 10:55:00 AM EDT [facility] Name Value Range Interpretation Code Description Data Keysha rce(s) Supporting Document(s) Sodium 138 mmol/L 136-145 Normal (applies to non-numeric resul ts) [facility] Potassium 3.5-5.1 Normal (applies to non-numeric resul ts) [facility] Chloride 102 mmol/L 98-107 Normal (applies to non-numeric resul ts) [facility] Carbon Dioxide CO2 21-32 Normal (applies to non-numer ic results) [facility] Anion Gap 5.0-16.0 Normal (applies to non-numeric resul ts) [facility] BUN 9 mg/dL 7-18 Normal (applies to non-numeric results) [facility] Creatinine,Serum 0.8-1.5 Normal (applies to non-numeric results) [facility] GFR >60 Normal (applies to non-numeric results) [facility] Glucose Level 159 mg/dL 60-99 Above high normal [facility] Reference range is only applicable when patient is fasting Note the following drug interference: Sulfasalazine Sulfapyridine Can see falsely depressed Can see falsely elevated result with up to 17% results with up to 11% decrease in measurement increase in measurement Recommend patients be collected for this test prior to administration of either drug. Calcium 8.5-10.1 Normal (applies to non-numeric resul ts) [facility] Bilirubin,Total 0.1-1.9 Normal (applies to non-numeric results) [facility] SGOT(AST) 21 U/L 15-37 Normal (applies to non-numeric resul ts) [facility] Note the following drug interference: Sulfasalazine Sulfapyridine Can see falsely depressed Can see falsely elevated result with up to 10% results with up to 10% decrease in measurement increase in measurement Recommend patients be collected for this test prior to administration of either drug. SGPT(ALT) 67 U/L 12-78 Normal (applies to non-numeric resul ts) [facility] Note the following drug interference: Sulfasalazine Sulfapyridine Can see falsely depressed Can see falsely elevated result with up to 29% results with up to 10% decrease in measurement increase in measurement Recommend patients be collected for this test prior to administration of either drug. Alkaline Phosphatase 68 U/L 38-126 Normal (applies to non-num martha results) [facility] can increase Alkaline Phosp le vels up to 2 times the normal adult value. Normal values for children and adolescents are 2 to 3 times the normal adult value. Total Protein 6.0-8.2 Normal (applies to non-numeric re sults) [facility] Albumin Level 3.4-5.0 Normal (applies to non-numeric re sults) [facility] ID Date Data Source [id number] 02/01/2020 10:55:00 AM EDT [facility] Name Value Range Interpretation Code Description Data Keysha rce(s) Supporting Document(s) Thyroid Stimulate Hormone TSH 0.358-3.74 No rmal (applies to non-numeric results) [facility] ID Date Data Source [id number] 02/01/2020 10:55:00 AM EDT [facility] Name Value Range Interpretation Code Description Data Keysha rce(s) Supporting Document(s) Free T4 (Free Thyroxine) 0.76-1.46 Normal (applies to non -numeric results) [facility] ID Date Data Source [id number] 02/01/2020 10:13:00 AM [facility] Name Value Range Interpretation Code Description Data Keysha rce(s) Supporting Document(s) White Blood Count 3.5-10.5 Normal (applies to non-numeri c results) [facility] Red Blood Count 4.30-5.70 Below low normal [facility] Hemoglobin 13.5-17.5 Below low normal [facility] Hematocrit 38.8-50.0 Below low normal [facility] Mean Corpuscular Volume 81.2-95.1 Above high normal [facility] Mean Corpuscular Hgb 25.6-32.2 Normal (applies to non-num martha results) [facility] Mean Corpuscular Hgb Conc 32.0-36.0 Normal (applies to no n-numeric results) [facility] Red Cell Distribution Width 11.8-15.6 Normal (appli es to non-numeric results) [facility] Platelet Count 224 x10 3/uL 150-450 Normal (applies to non-numeric results) [facility] Mean Platelet Volume 9.4-12.4 Below low normal [facility] Neutrophils% (Auto) 31.0-71.0 Normal (applies to non-nume tita results) [facility] Lymphocytes% (Auto) 20.0-55.0 Normal (applies to non-nume tita results) [facility] Monocytes% (Auto) 4.0-12.0 Normal (applies to non-numeri c results) [facility] Eosinophils% (Auto) 1.0-8.0 Normal (applies to non-nume tita results) [facility] Basophils% (Auto) 0.0-2.0 Normal (applies to non-numeri c results) [facility] Immature Granulocytes% (Auto) 0.0-2.0 Normal (raquel lies to non-numeric results) [facility] Neutrophils# (Auto) 1.50-6.20 Normal (applies to non-nume tita results) [facility] Lymphocytes# (Auto) 1.20-4.00 Normal (applies to non-nume tita results) [facility] Monocytes# (Auto) 0.00-0.90 Normal (applies to non-numeri c results) [facility] Eosinophils# (Auto) 0.00-0.50 Normal (applies to non-nume tita results) [facility] Basophils# (Auto) 0.00-0.20 Normal (applies to non-numeri c results) [facility] Immature Granulocytes# (Auto) 0.00-7.00 No rmal (applies to non-numeric results) [facility] ID Date Data Source [id number] 01/12/2020 08:24:00 AM EDT [facility] Name Value Range Interpretation Code Description Data Keysha rce(s) Supporting Document(s) Free T4 (Free Thyroxine) 0.76-1.46 Normal (applies to non -numeric results) [facility] ID Date Data Source [id number] 01/12/2020 07:34:00 AM EDT [facility] Name Value Range Interpretation Code Description Data Keysha rce(s) Supporting Document(s) Sodium 140 mmol/L 136-145 Normal (applies to non-numeric resul ts) [facility] Potassium 3.5-5.1 Normal (applies to non-numeric resul ts) [facility] Chloride 102 mmol/L 98-107 Normal (applies to non-numeric resul ts) [facility] Carbon Dioxide CO2 21-32 Normal (applies to non-numer ic results) [facility] Anion Gap 5.0-16.0 Normal (applies to non-numeric resul ts) [facility] BUN 10 mg/dL 7-18 Normal (applies to non-numeric results) [facility] Creatinine,Serum 0.8-1.5 Normal (applies to non-numeric results) [facility] GFR >60 Normal (applies to non-numeric results) [facility] Glucose Level 154 mg/dL 60-99 Above high normal [facility] Reference range is only applicable when patient is fasting Note the following drug interference: Sulfasalazine Sulfapyridine Can see falsely depressed Can see falsely elevated result with up to 17% results with up to 11% decrease in measurement increase in measurement Recommend patients be collected for this test prior to administration of either drug. Calcium 8.5-10.1 Normal (applies to non-numeric resul ts) [facility] Bilirubin,Total 0.1-1.9 Normal (applies to non-numeric results) [facility] SGOT(AST) 18 U/L 15-37 Normal (applies to non-numeric resul ts) [facility] Note the following drug interference: Sulfasalazine Sulfapyridine Can see falsely depressed Can see falsely elevated result with up to 10% results with up to 10% decrease in measurement increase in measurement Recommend patients be collected for this test prior to administration of either drug. SGPT(ALT) 49 U/L 12-78 Normal (applies to non-numeric resul ts) [facility] Note the following drug interference: Sulfasalazine Sulfapyridine Can see falsely depressed Can see falsely elevated result with up to 29% results with up to 10% decrease in measurement increase in measurement Recommend patients be collected for this test prior to administration of either drug. Alkaline Phosphatase 72 U/L 38-126 Normal (applies to non-num martha results) [facility] can increase Alkaline Phosp le vels up to 2 times the normal adult value. Normal values for children and adolescents are 2 to 3 times the normal adult value. Total Protein 6.0-8.2 Normal (applies to non-numeric re sults) [facility] Albumin Level 3.4-5.0 Normal (applies to non-numeric re sults) [facility] ID Date Data Source [id number] 01/12/2020 07:34:00 AM EDT [facility] Name Value Range Interpretation Code Description Data Keysha rce(s) Supporting Document(s) Thyroid Stimulate Hormone TSH 0.358-3.74 No rmal (applies to non-numeric results) [facility] ID Date Data Source [id number] 01/11/2020 02:26:00 PM EDT [facility] Name Value Range Interpretation Code Description Data Keysha rce(s) Supporting Document(s) CEA result 0.2-5.0 Normal (applies to non-numeric resul ts) [facility] % Distribution of CEA 0 - 2.5 [...] be used interchangeably. ID Date Data Source [id number] 01/11/2020 01:55:00 PM EDT [facility] Name Value Range Interpretation Code Description Data Keysha rce(s) Supporting Document(s) CEA 0.2-5.0 Normal (applies to non-numeric results) [facility] % Distribution of CEA 0 - 2.5 in 98.2% of nonsmokers and 87.3% of smokers 2.6 - 5.0 in 1.8% of non-smokers and 8.0% of smokers Serum CEA concentrations should not be interpreted as absolute evidence for the presence or absence of malignant disease. Assayed utilizing the Siemens [employer] EndoSphereaur chemiluminometric technology. Values obtained by using different assay methods cannot be used interchangeably. ID Date Data Source [id number] 01/11/2020 09:49:00 AM EDT [facility] Name Value Range Interpretation Code Description Data Keysha rce(s) Supporting Document(s) White Blood Count 3.5-10.5 Normal (applies to non-numeri c results) [facility] Red Blood Count 4.30-5.70 Below low normal [facility] Hemoglobin 13.5-17.5 Below low normal [facility] Hematocrit 38.8-50.0 Below low normal [facility] Mean Corpuscular Volume 81.2-95.1 Normal (applies to non- numeric results) [facility] Mean Corpuscular Hgb 25.6-32.2 Normal (applies to non-num martha results) [facility] Mean Corpuscular Hgb Conc 32.0-36.0 Normal (applies to no n-numeric results) [facility] Red Cell Distribution Width 11.8-15.6 Normal (appli es to non-numeric results) [facility] Platelet Count 212 x10 3/uL 150-450 Normal (applies to non-numeric results) [facility] Mean Platelet Volume 9.4-12.4 Below low normal [facility] Neutrophils% (Auto) 31.0-71.0 Normal (applies to non-nume tita results) [facility] Lymphocytes% (Auto) 20.0-55.0 Normal (applies to non-nume tita results) [facility] Monocytes% (Auto) 4.0-12.0 Normal (applies to non-numeri c results) [facility] Eosinophils% (Auto) 1.0-8.0 Normal (applies to non-nume tita results) [facility] Basophils% (Auto) 0.0-2.0 Normal (applies to non-numeri c results) [facility] Immature Granulocytes% (Auto) 0.0-2.0 Normal (raquel lies to non-numeric results) [facility] Neutrophils# (Auto) 1.50-6.20 Normal (applies to non-nume tita results) [facility] Lymphocytes# (Auto) 1.20-4.00 Normal (applies to non-nume tita results) [facility] Monocytes# (Auto) 0.00-0.90 Normal (applies to non-numeri c results) [facility] Eosinophils# (Auto) 0.00-0.50 Normal (applies to non-nume tita results) [facility] Basophils# (Auto) 0.00-0.20 Normal (applies to non-numeri c results) [facility] Immature Granulocytes# (Auto) 0.00-7.00 No rmal (applies to non-numeric results) [facility] ID Date Data Source [id number] 12/21/2019 03:05:00 PM [facility] Name Value Range Interpretation Code Description Data Keysha rce(s) Supporting Document(s) CEA result 0.2-5.0 Normal (applies to non-numeric resul ts) [facility] % Distribution of CEA 0 - 2.5 [...] be used interchangeably. ID Date Data Source [id number] 12/21/2019 02:19:00 PM [facility] Name Value Range Interpretation Code Description Data Keysha rce(s) Supporting Document(s) CEA 0.2-5.0 Normal (applies to non-numeric results) [facility] % Distribution of CEA 0 - 2.5 in 98.2% of nonsmokers and 87.3% of smokers 2.6 - 5.0 in 1.8% of non-smokers and 8.0% of smokers Serum CEA concentrations should not be interpreted as absolute evidence for the presence or absence of malignant disease. Assayed utilizing the Siem[employer] EndoSphereaur chemiluminometric technology. Values obtained by using different assay methods cannot be used interchangeably. ID Date Data Source [id number] 12/21/2019 09:51:00 AM EST [facility] Name Value Range Interpretation Code Description Data Keysha rce(s) Supporting Document(s) Sodium 140 mmol/L 136-145 Normal (applies to non-numeric resul ts) [facility] Potassium 3.5-5.1 Normal (applies to non-numeric resul ts) [facility] Chloride 104 mmol/L 98-107 Normal (applies to non-numeric resul ts) [facility] Carbon Dioxide CO2 21-32 Normal (applies to non-numer ic results) [facility] Anion Gap 5.0-16.0 Normal (applies to non-numeric resul ts) [facility] BUN 7 mg/dL 7-18 Normal (applies to non-numeric results) [facility] Creatinine,Serum 0.8-1.5 Normal (applies to non-numeric results) [facility] GFR >60 Normal (applies to non-numeric results) [facility] Glucose Level 143 mg/dL 60-99 Above high normal [facility] Reference range is only applicable when patient is fasting Note the following drug interference: Sulfasalazine Sulfapyridine Can see falsely depressed Can see falsely elevated result with up to 17% results with up to 11% decrease in measurement increase in measurement Recommend patients be collected for this test prior to administration of either drug. Calcium 8.5-10.1 Normal (applies to non-numeric resul ts) [facility] Bilirubin,Total 0.1-1.9 Normal (applies to non-numeric results) [facility] SGOT(AST) 27 U/L 15-37 Normal (applies to non-numeric resul ts) [facility] Note the following drug interference: Sulfasalazine Sulfapyridine Can see falsely depressed Can see falsely elevated result with up to 10% results with up to 10% decrease in measurement increase in measurement Recommend patients be collected for this test prior to administration of either drug. SGPT(ALT) 76 U/L 12-78 Normal (applies to non-numeric resul ts) [facility] Note the following drug interference: Sulfasalazine Sulfapyridine Can see falsely depressed Can see falsely elevated result with up to 29% results with up to 10% decrease in measurement increase in measurement Recommend patients be collected for this test prior to administration of either drug. Alkaline Phosphatase 71 U/L 38-126 Normal (applies to non-num martha results) [facility] can increase Alkaline Phosp le vels up to 2 times the normal adult value. Normal values for children and adolescents are 2 to 3 times the normal adult value. Total Protein 6.0-8.2 Normal (applies to non-numeric re sults) [facility] Albumin Level 3.4-5.0 Normal (applies to non-numeric re sults) [facility] ID Date Data Source [id number] 12/21/2019 09:51:00 AM EST [facility] Name Value Range Interpretation Code Description Data Keysha rce(s) Supporting Document(s) Free T4 (Free Thyroxine) 0.76-1.46 Normal (applies to non -numeric results) [facility] ID Date Data Source [id number] 12/21/2019 09:21:00 AM [facility] Name Value Range Interpretation Code Description Data Keysha rce(s) Supporting Document(s) White Blood Count 3.5-10.5 Normal (applies to non-numeri c results) [facility] Red Blood Count 4.30-5.70 Below low normal [facility] Hemoglobin 13.5-17.5 Below low normal [facility] Hematocrit 38.8-50.0 Below low normal [facility] Mean Corpuscular Volume 81.2-95.1 Normal (applies to non- numeric results) [facility] Mean Corpuscular Hgb 25.6-32.2 Normal (applies to non-num martha results) [facility] Mean Corpuscular Hgb Conc 32.0-36.0 Normal (applies to no n-numeric results) [facility] Red Cell Distribution Width 11.8-15.6 Normal (appli es to non-numeric results) [facility] Platelet Count 267 x10 3/uL 150-450 Normal (applies to non-numeric results) [facility] Mean Platelet Volume 9.4-12.4 Below low normal [facility] Neutrophils% (Auto) 31.0-71.0 Normal (applies to non-nume tita results) [facility] Lymphocytes% (Auto) 20.0-55.0 Normal (applies to non-nume tita results) [facility] Monocytes% (Auto) 4.0-12.0 Above high normal [facility] Eosinophils% (Auto) 1.0-8.0 Normal (applies to non-nume tita results) [facility] Basophils% (Auto) 0.0-2.0 Normal (applies to non-numeri c results) [facility] Immature Granulocytes% (Auto) 0.0-2.0 Normal (raquel lies to non-numeric results) [facility] Neutrophils# (Auto) 1.50-6.20 Normal (applies to non-nume tita results) [facility] Lymphocytes# (Auto) 1.20-4.00 Normal (applies to non-nume tita results) [facility] Monocytes# (Auto) 0.00-0.90 Above high normal [facility] Eosinophils# (Auto) 0.00-0.50 Normal (applies to non-nume tita results) [facility] Basophils# (Auto) 0.00-0.20 Normal (applies to non-numeri c results) [facility] Immature Granulocytes# (Auto) 0.00-7.00 No rmal (applies to non-numeric results) [facility] ID Date Data Source [id number] 11/30/2019 10:59:00 AM EST [facility] Name Value Range Interpretation Code Description Data Keysha rce(s) Supporting Document(s) Sodium 141 mmol/L 136-145 Normal (applies to non-numeric resul ts) [facility] Potassium 3.5-5.1 Normal (applies to non-numeric resul ts) [facility] Chloride 103 mmol/L 98-107 Normal (applies to non-numeric resul ts) [facility] Carbon Dioxide CO2 21-32 Normal (applies to non-numer ic results) [facility] Anion Gap 5.0-16.0 Normal (applies to non-numeric resul ts) [facility] BUN 7 mg/dL 7-18 Normal (applies to non-numeric results) [facility] Creatinine,Serum 0.8-1.5 Normal (applies to non-numeric results) [facility] GFR >60 Normal (applies to non-numeric results) [facility] Glucose Level 145 mg/dL 60-99 Above high normal [facility] Reference range is only applicable when patient is fasting Note the following drug interference: Sulfasalazine Sulfapyridine Can see falsely depressed Can see falsely elevated result with up to 17% results with up to 11% decrease in measurement increase in measurement Recommend patients be collected for this test prior to administration of either drug. Calcium 8.5-10.1 Normal (applies to non-numeric resul ts) [facility] Bilirubin,Total 0.1-1.9 Normal (applies to non-numeric results) [facility] SGOT(AST) 23 U/L 15-37 Normal (applies to non-numeric resul ts) [facility] Note the following drug interference: Sulfasalazine Sulfapyridine Can see falsely depressed Can see falsely elevated result with up to 10% results with up to 10% decrease in measurement increase in measurement Recommend patients be collected for this test prior to administration of either drug. SGPT(ALT) 84 U/L 12-78 Above high normal [facility] Note the following drug interference: Sulfasalazine Sulfapyridine Can see falsely depressed Can see falsely elevated result with up to 29% results with up to 10% decrease in measurement increase in measurement Recommend patients be collected for this test prior to administration of either drug. Alkaline Phosphatase 78 U/L 38-126 Normal (applies to non-num martha results) [facility] can increase Alkaline Phosp le vels up to 2 times the normal adult value. Normal values for children and adolescents are 2 to 3 times the normal adult value. Total Protein 6.0-8.2 Normal (applies to non-numeric re sults) [facility] Albumin Level 3.4-5.0 Normal (applies to non-numeric re sults) [facility] ID Date Data Source [id number] 11/30/2019 10:59:00 AM EST [facility] Name Value Range Interpretation Code Description Data Keysha rce(s) Supporting Document(s) Thyroid Stimulate Hormone TSH 0.358-3.74 No rmal (applies to non-numeric results) [facility] ID Date Data Source [id number] 11/30/2019 10:59:00 AM EST [facility] Name Value Range Interpretation Code Description Data Keysha rce(s) Supporting Document(s) Free T4 (Free Thyroxine) 0.76-1.46 Normal (applies to non -numeric results) [facility] ID Date Data Source [id number] 11/30/2019 09:55:00 AM EST [facility] Name Value Range Interpretation Code Description Data Keysha rce(s) Supporting Document(s) White Blood Count 3.5-10.5 Normal (applies to non-numeri c results) [facility] Red Blood Count 4.30-5.70 Normal (applies to non-numeric results) [facility] Hemoglobin 13.5-17.5 Below low normal [facility] Hematocrit 38.8-50.0 Normal (applies to non-numeric resul ts) [facility] Mean Corpuscular Volume 81.2-95.1 Normal (applies to non- numeric results) [facility] Mean Corpuscular Hgb 25.6-32.2 Normal (applies to non-num martha results) [facility] Mean Corpuscular Hgb Conc 32.0-36.0 Normal (applies to no n-numeric results) [facility] Red Cell Distribution Width 11.8-15.6 Normal (appli es to non-numeric results) [facility] Platelet Count 341 x10 3/uL 150-450 Normal (applies to non-numeric results) [facility] Mean Platelet Volume 9.4-12.4 Below low normal [facility] Neutrophils% (Auto) 31.0-71.0 Normal (applies to non-nume tita results) [facility] Lymphocytes% (Auto) 20.0-55.0 Normal (applies to non-nume tita results) [facility] Monocytes% (Auto) 4.0-12.0 Above high normal [facility] Eosinophils% (Auto) 1.0-8.0 Normal (applies to non-nume tita results) [facility] Basophils% (Auto) 0.0-2.0 Normal (applies to non-numeri c results) [facility] Immature Granulocytes% (Auto) 0.0-2.0 Normal (raquel lies to non-numeric results) [facility] Neutrophils# (Auto) 1.50-6.20 Normal (applies to non-nume tita results) [facility] Lymphocytes# (Auto) 1.20-4.00 Above high normal [facility] Monocytes# (Auto) 0.00-0.90 Above high normal [facility] Eosinophils# (Auto) 0.00-0.50 Normal (applies to non-nume tita results) [facility] Basophils# (Auto) 0.00-0.20 Normal (applies to non-numeri c results) [facility] Immature Granulocytes# (Auto) 0.00-7.00 No rmal (applies to non-numeric results) [facility] ID Date Data Source [id number] 11/13/2019 02:43:00 PM EST [facility] spital Pending Campylobacter: Not detected C.difficile Toxin A/B: Not detected Plesiomonas shigelloides: Not detected Salmonella: Not detected Vibrio cholera: Not detected Vibrio: Not detected Yersinia enterocolitica: Not detected Pending Cryptosporidium: Not detected Cyclospora cayetanensis: Not detected Entamoeba histolytica: Not detected Giardia lamblia: Not detected Results called 11/13/19 CHANTELLE Meyer read back information to [facility] Pending E.coli O157: Not detected Enteroaggregative E.coli: Not detected Shigella/EIEC: Not Detected Enteropathogenic E.coli: Not detected Enterotoxigenic E.coli: Not detected Shiga toxin 1/2: Not detected [facility] B read back information 11/13/19 1442 ZIONANGY Methodology: Multiplexed PCR Reference Range: None detected Adenovirus F 40/41: Not detected Astrovirus: Detected Norovirus GI/GII: Not detected Rotavirus A: Not detected Sapovirus: Not detected Name Value Range Interpretation Code Description Data Keysha rce(s) Supporting Document(s) ID Date Data Source [id number] 11/12/2019 05:40:00 PM [facility] Collected By: Nurse Initials: pc Time Collected: 1731 Name Value Range Interpretation Code Description Data Keysha rce(s) Supporting Document(s) Color,Urine Colorl-Dk Y Normal (applies to non-numeric res ults) [facility] Clarity,Urine Clear Normal (applies to non-numeric re sults) [facility] Specific [place],Urine 1.015-1.025 Normal (applies to non- numeric results) [facility] pH,Urine 5.0-7.0 Normal (applies to non-numeric resul ts) [facility] Protein,Urine Negative Normal (applies to non-numeric re sults) [facility] Glucose,Urine Negative [facility] Ketones,Urine Negative Normal (applies to non-numeric re sults) [facility] Blood,Urine Negative Normal (applies to non-numeric resu lts) [facility] Bilirubin,Urine Negative Normal (applies to non-numeric results) [facility] Urobilinogen,Urine Normal Normal (applies to non-numer ic results) [facility] Leukocyte Esterase,Urine Negative Normal (applies to non -numeric results) [facility] Nitrite,Urine Negative Normal (applies to non-numeric re sults) [facility] ID Date Data Source [id number] 11/18/2019 01:21:00 AM [facility] spital NO GROWTH AFTER 120 HOURS (5 Days) Proc edure Performed By: [facility] [address] [place] [address] Director: Gino Davila Name Value Range Interpretation Code Description Data Keysha rce(s) Supporting Document(s) ID Date Data Source [id number] 11/17/2019 08:43:00 PM EST [facility] NO GROWTH AFTER 120 HOURS (5 Days) Pr ocedure Performed By: [facility] [address] [place] [address] Director: Gino Davila Name Value Range Interpretation Code Description Data Keysha rce(s) Supporting Document(s) ID Date Data Source [id number] 11/18/2019 01:21:00 AM [facility] AFTER [facility] HOURS (5 Days) Proc edure Performed By: [facility] [address] [place] [address] Director: Gino Davila Name Value Range Interpretation Code Description Data Keysha rce(s) Supporting Document(s) ID Date Data Source [id number] 11/17/2019 08:43:00 PM [facility] NO GROWTH AFTER 120 HOURS (5 Days) Pr ocedure Performed By: [facility] [address] [place] [address] Director: Gino Davila Name Value Range Interpretation Code Description Data Keysha rce(s) Supporting Document(s) ID Date Data Source [id number] 11/12/2019 05:25:00 PM [facility] Name Value Range Interpretation Code Description Data Keysha rce(s) Supporting Document(s) PT 9.2-11.7 Normal (applies to non-numeric results) [facility] INR Normal (applies to non-numeric results) [facility] The use of INR is restricted to patients on stable oral anticoagulant. Therapeutic Range: 2.0 - 3.0 High Risk Range: 2.5 - 3.5 ID Date Data Source [id number] 11/12/2019 05:25:00 PM [facility] Name Value Range Interpretation Code Description Data Keysha rce(s) Supporting Document(s) PTT 23.8-37.9 Normal (applies to non-numeric results) [facility] ID Date Data Source [id number] 11/12/2019 05:15:00 PM [facility] Name Value Range Interpretation Code Description Data Keysha rce(s) Supporting Document(s) Lactic Acid 0.4-2.0 Normal (applies to non-numeric resu lts) [facility] ID Date Data Source [id number] 11/12/2019 04:59:00 PM [facility] Name Value Range Interpretation Code Description Data Keysha rce(s) Supporting Document(s) Sodium 135 mmol/L 136-145 Below low normal [facility] Potassium 3.5-5.1 Normal (applies to non-numeric resul ts) [facility] Chloride 100 mmol/L 98-107 Normal (applies to non-numeric resul ts) [facility] Carbon Dioxide CO2 21-32 Normal (applies to non-numer ic results) [facility] Anion Gap 5.0-16.0 Normal (applies to non-numeric resul ts) [facility] BUN 14 mg/dL 7-18 Normal (applies to non-numeric results) [facility] Creatinine,Serum 0.8-1.5 Normal (applies to non-numeric results) [facility] GFR >60 Normal (applies to non-numeric results) [facility] Glucose Level 163 mg/dL 60-99 Above high normal [facility] Reference range is only applicable when patient is fasting Note the following drug interference: Sulfasalazine Sulfapyridine Can see falsely depressed Can see falsely elevated result with up to 17% results with up to 11% decrease in measurement increase in measurement Recommend patients be collected for this test prior to administration of either drug. Calcium 8.5-10.1 Below low normal [facility] Bilirubin,Total 0.1-1.9 Normal (applies to non-numeric results) [facility] SGOT(AST) 39 U/L 15-37 Above high normal [facility] Note the following drug interference: Sulfasalazine Sulfapyridine Can see falsely depressed Can see falsely elevated result with up to 10% results with up to 10% decrease in measurement increase in measurement Recommend patients be collected for this test prior to administration of either drug. SGPT(ALT) 113 U/L 12-78 Above high normal [facility] Note the following drug interference: Sulfasalazine Sulfapyridine Can see falsely depressed Can see falsely elevated result with up to 29% results with up to 10% decrease in measurement increase in measurement Recommend patients be collected for this test prior to administration of either drug. Alkaline Phosphatase 61 U/L 38-126 Normal (applies to non-num martha results) [facility] can increase Alkaline Phosp le vels up to 2 times the normal adult value. Normal values for children and adolescents are 2 to 3 times the normal adult value. Total Protein 6.0-8.2 Normal (applies to non-numeric re sults) [facility] Albumin Level 3.4-5.0 Normal (applies to non-numeric re sults) [facility] ID Date Data Source [id number] 11/12/2019 05:00:00 PM [facility] Name Value Range Interpretation Code Description Data Keysha rce(s) Supporting Document(s) Troponin I 0.000-0.056 Normal (applies to non-numeric resu lts) [facility] ID Date Data Source [id number] 11/12/2019 05:00:00 PM [facility] Value Range Interpretation Code Description Data Keysha rce(s) Supporting Document(s) Amylase 60 U/L 25-115 Normal (applies to non-numeric resul ts) [facility] ID Date Data Source [id number] 11/12/2019 05:00:00 PM [facility] Name Value Range Interpretation Code Description Data Keysha rce(s) Supporting Document(s) Lipase 140 U/L 73-393 Normal (applies to non-numeric resul ts) [facility] ID Date Data Source [id number] 11/12/2019 04:54:00 PM [facility] Name Value Range Interpretation Code Description Data Keysha rce(s) Supporting Document(s) White Blood Count 3.5-10.5 Normal (applies to non-numeri c results) [facility] Red Blood Count 4.30-5.70 Normal (applies to non-numeric results) [facility] Hemoglobin 13.5-17.5 Below low normal [facility] Hematocrit 38.8-50.0 Normal (applies to non-numeric resul ts) [facility] Mean Corpuscular Volume 81.2-95.1 Normal (applies to non- numeric results) [facility] Mean Corpuscular Hgb 25.6-32.2 Normal (applies to non-num martha results) [facility] Mean Corpuscular Hgb Conc 32.0-36.0 Normal (applies to no n-numeric results) [facility] Red Cell Distribution Width 11.8-15.6 Normal (appli es to non-numeric results) [facility] Platelet Count 122 x10 3/uL 150-450 Below low normal [facility] Slide has been reviewed and findings con firmed by a technologist/hvac field service technician. Mean Platelet Volume 9.4-12.4 Below low normal [facility] Neutrophils% (Auto) 31.0-71.0 Normal (applies to non-nume tita results) [facility] Lymphocytes% (Auto) 20.0-55.0 Normal (applies to non-nume tita results) [facility] Monocytes% (Auto) 4.0-12.0 Normal (applies to non-numeri c results) [facility] Eosinophils% (Auto) 1.0-8.0 Below low normal [facility] Basophils% (Auto) 0.0-2.0 Normal (applies to non-numeri c results) [facility] Immature Granulocytes% (Auto) 0.0-2.0 Normal (raquel lies to non-numeric results) [facility] Neutrophils# (Auto) 1.50-6.20 Normal (applies to non-nume tita results) [facility] Lymphocytes# (Auto) 1.20-4.00 Normal (applies to non-nume tita results) [facility] Monocytes# (Auto) 0.00-0.90 Normal (applies to non-numeri c results) [facility] Eosinophils# (Auto) 0.00-0.50 Normal (applies to non-nume tita results) [facility] Basophils# (Auto) 0.00-0.20 Normal (applies to non-numeri c results) [facility] Immature Granulocytes# (Auto) 0.00-7.00 No rmal (applies to non-numeric results) [facility] ID Date Data Source [id number] 11/13/2019 07:09:00 AM EST [facility] Imaging Services Department Imaging Report [address], [place] [address] %(RAD)RES..mtdd.print.filter("line") Name: MAMTA YORK : 1970 Age/Sex: 48M Ordering Provider: Shawn Quispe MD Med Rec #: [id number] Reg Status: [facility] Room #: Date of Service: 11/12/19 Report Number: [id number] cc:Kole Perez NP Send Report To: [id number] CT/CT Abdomen & Pelvis No Contras Reason [...] Date/Time: 11/12/19 1740 Transcribed Date/Time: 11/13/19 0709 Community Relations Officer: TESSIE Name Value Range Interpretation Code Description Data Keysha rce(s) Supporting Document(s) ID Date Data Source [id number] 11/13/2019 08:48:00 AM [facility] Imaging Services Department Imaging Report [address] [place] [address] %(RAD)RES..mtdd.print.filter("line") Name: MAMTA YORK : 1970 Age/Sex: 48M Ordering Provider: Shawn Quispe MD Med Rec #: [id number] Reg Status: [facility] Room #: Date of Service: 11/12/19 Report Number: [id number] cc:Kole Perez NP Send Report To: [id number] XRP/XR Chest Xray Portable Reason for exam: [...] Date/Time: 11/12/19 1643 Transcribed Date/Time: 11/13/19 0848 Community Relations Officer: MICHAEL Name Value Range Interpretation Code Description [facility] Document(s) ID Date Data Source [id number] 11/12/2019 04:47:00 PM [facility] spital Method performed by Isothermal Nucle ic Acid [...] Name Value Range Interpretation Code Description Data [facility] Supporting Document(s) ID Date Data Source [id number] 11/13/2019 02:34:00 PM [facility] Methodology: Multiplexed PCR Refer ence Range: None detected Name Value Range Interpretation Code Description Data [facility] Supporting Document(s) ID Date Data Source [id number] 10/19/2019 03:32:00 PM [facility] Name Value Range Interpretation Code Description Data [facility](s) Supporting Document(s) CEA result 0.2-5.0 [facility] % Distribution of CEA 0 - [...] be used interchangeably. ID Date Data Source [id number] 10/19/2019 03:24:00 PM [facility] Name Value Range Interpretation Code Description Data [facility](s) Supporting Document(s) CEA 0.2-5.0 Above high normal [facility] % Distribution of CEA 0 [...] be used interchangeably. ID Date Data Source [id number] 10/19/2019 02:28:00 PM EST [facility] Name Value Range Interpretation Code Description Data Keysha rce(s) Supporting Document(s) Sodium 140 mmol/L 136-145 Normal (applies to non-numeric resul ts) [facility] Potassium 3.5-5.1 Normal (applies to non-numeric resul ts) [facility] Chloride 100 mmol/L 98-107 Normal (applies to non-numeric resul ts) [facility] Carbon Dioxide CO2 21-32 Normal (applies to non-numer ic results) [facility] Anion Gap 5.0-16.0 Normal (applies to non-numeric resul ts) [facility] BUN 9 mg/dL 7-18 Normal (applies to non-numeric results) [facility] Creatinine,Serum 0.8-1.5 Normal (applies to non-numeric results) [facility] GFR >60 Normal (applies to non-numeric results) [facility] Glucose Level 133 mg/dL 60-99 Above high normal [facility] Reference range is only applicable when patient is fasting Note the following drug interference: Sulfasalazine Sulfapyridine Can see falsely depressed Can see falsely elevated result with up to 17% results with up to 11% decrease in measurement increase in measurement Recommend patients be collected for this test prior to administration of either drug. Calcium 8.5-10.1 Normal (applies to non-numeric resul ts) [facility] Bilirubin,Total 0.1-1.9 Normal (applies to non-numeric results) [facility] SGOT(AST) 16 U/L 15-37 Normal (applies to non-numeric resul ts) [facility] Note the following drug interference: Sulfasalazine Sulfapyridine Can see falsely depressed Can see falsely elevated result with up to 10% results with up to 10% decrease in measurement increase in measurement Recommend patients be collected for this test prior to administration of either drug. SGPT(ALT) 56 U/L 12-78 Normal (applies to non-numeric resul ts) [facility] Note the following drug interference: Sulfasalazine Sulfapyridine Can see falsely depressed Can see falsely elevated result with up to 29% results with up to 10% decrease in measurement increase in measurement Recommend patients be collected for this test prior to administration of either drug. Alkaline Phosphatase 73 U/L 38-126 Normal (applies to non-num martha results) [facility] can increase Alkaline Phosp le vels up to 2 times the normal adult value. Normal values for children and adolescents are 2 to 3 times the normal adult value. Total Protein 6.0-8.2 Normal (applies to non-numeric re sults) [facility] Albumin Level 3.4-5.0 Normal (applies to non-numeric re sults) [facility] ID Date Data Source [id number] 10/19/2019 02:28:00 PM [facility] Name Value Range Interpretation Code Description Data Keysha rce(s) Supporting Document(s) Thyroid Stimulate Hormone TSH 0.358-3.740 No rmal (applies to non-numeric results) [facility] ID Date Data Source [id number] 10/19/2019 02:28:00 PM [facility] Name Value Range Interpretation Code Description Data Keysha rce(s) Supporting Document(s) Free T4 (Free Thyroxine) 0.76-1.46 Normal (applies to non -numeric results) [facility] ID Date Data Source [id number] 10/19/2019 09:42:00 AM [facility] Name Value Range Interpretation Code Description Data Keysha rce(s) Supporting Document(s) White Blood Count 3.5-10.5 Above high normal [facility] Red Blood Count 4.30-5.70 Normal (applies to non-numeric results) [facility] Hemoglobin 13.5-17.5 Below low normal [facility] Hematocrit 38.8-50.0 Normal (applies to non-numeric resul ts) [facility] Mean Corpuscular Volume 81.2-95.1 Normal (applies to non- numeric results) [facility] Mean Corpuscular Hgb 25.6-32.2 Normal (applies to non-num martha results) [facility] Mean Corpuscular Hgb Conc 32.0-36.0 Normal (applies to no n-numeric results) [facility] Red Cell Distribution Width 11.8-15.6 Normal (appli es to non-numeric results) [facility] Platelet Count 396 x10 3/uL 150-450 Normal (applies to non-numeric results) [facility] Mean Platelet Volume 9.4-12.4 Below low normal [facility] Neutrophils% (Auto) 31.0-71.0 Normal (applies to non-nume tita results) [facility] Lymphocytes% (Auto) 20.0-55.0 Normal (applies to non-nume tita results) [facility] Monocytes% (Auto) 4.0-12.0 Normal (applies to non-numeri c results) [facility] Eosinophils% (Auto) 1.0-8.0 Above high normal [facility] Basophils% (Auto) 0.0-2.0 Normal (applies to non-numeri c results) [facility] Immature Granulocytes% (Auto) 0.0-2.0 Normal (raquel lies to non-numeric results) [facility] Neutrophils# (Auto) 1.50-6.20 Normal (applies to non-nume tita results) [facility] Lymphocytes# (Auto) 1.20-4.00 Above high normal [facility] Monocytes# (Auto) 0.00-0.90 Above high normal [facility] Eosinophils# (Auto) 0.00-0.50 Above high normal [facility] Basophils# (Auto) 0.00-0.20 Normal (applies to non-numeri c results) [facility] Immature Granulocytes# (Auto) 0.00-7.00 No rmal (applies to non-numeric results) [facility] Slide has been reviewed and findings con firmed by a technologist/hvac field service technician. ID Date Data Source [id number] 10/19/2019 01:40:00 PM [facility] Imaging Services Department Imaging Report [address] [place], [place] [address] %(RAD)RES..mtdd.print.filter("line") Name: MAMTA YORK : 1970 Age/Sex: 48M Ordering Provider: Kristel Campos MD Med Rec #: [id number] Reg Status: DEP REF Room #: Date of Service: 10/19/19 Report Number: [id number] cc:Kristel Campos MD; Kole Perez NP Send Report To: [id number] US/US Dup Upper Ext Veins Rt Reason [...] Date/Time: 10/19/19 1333 Transcribed Date/Time: 10/19/19 1340 Community Relations Officer: TESSIE Name Value Range Interpretation Code Description Data Keysha rce(s) Supporting Document(s) ID Date Data Source [id number] 10/19/2019 01:50:00 PM [facility] Imaging Services Department Imaging Report [address] [place] [id number] %(RAD)RES..mtdd.print.filter("line") Name: MAMTA YORK : 1970 Age/Sex: 48M Ordering Provider: Kristel Campos MD Med Rec #: [id number] Reg Status: DEP REF Room #: Date of Service: 10/19/19 Report Number: [id number] cc:Kristel Campos MD; Kole Perez NP Send Report To: [id number] US/US Soft Tissue Head/Neck Reason for exam: [...] Date/Time: 10/19/19 1330 Transcribed Date/Time: 10/19/19 1350 Community Relations Officer: TESSIE Name Value Range Interpretation Code Description Data Keysha rce(s) Supporting Document(s) Procedure Social History Code Duration Value Status Description Data Source(s ) Smoking 12/15/2020 12:00:00 AM EST - 11/04/2018 12:00:00 AM EST Patient is a former smoker completed Patient is a former smoker [facility] ([facility], ) Vital Signs ID Date Data Source UNK Name Value Range Interpretation Code Description Data Source(s) Body surface area Derived from formula 2.12 m2 2.12 m2 [facility] ([facility]) Body weight 96.617 kg 96.617 kg [facility] ([facility]) [place] body weight 160 [lb_av] 160 [lb_av] [facility] ([facility]) Body mass index (BMI) [Ratio] 31.5 kg/m2 31.5 k g/m2 [facility] ([facility]) Body weight 213.00 [lb_av] 213.00 [lb_av] [facility] ([facility]) Body height 69 [in_i] 69 [in_i] [facility] ([facility]) 5'9" Body temperature 96.9 [degF] 96.9 [degF] [facility] ([facility]) Oxygen saturation in Arterial blood by Pulse oximetry 95 % 95 % [facility] ([facility]) Heart rate 134 /min 134 /min [facility] ([facility]) Diastolic blood pressure 84 mm[Hg] 84 mm[Hg] [facility] ([facility]) Systolic blood pressure 146 mm[Hg] 146 mm[Hg] [facility] ([facility]) Body surface area Derived from formula 2.24 m2 2.24 m2 [facility] ([facility]) Body weight 109.771 kg 109.771 kg [facility] ([facility]) [place] body weight 160 [lb_av] 160 [lb_av] [facility] ([facility]) Body mass index (BMI) [Ratio] 35.7 kg/m2 35.7 k g/m2 [facility] ([facility]) Body weight 242.00 [lb_av] 242.00 [lb_av] [facility] Body height 69 [in_i] 69 [in_i] [facility] ([facility]) 5'9" Body temperature 96.9 [degF] 96.9 [degF] [facility] ([facility]) Oxygen saturation in Arterial blood by Pulse oximetry 97 % 97 % [facility] ([facility]) Heart rate 93 /min 93 /min [facility] ([facility]) Diastolic blood pressure 70 mm[Hg] 70 mm[Hg] [facility] ([facility]) Systolic blood pressure 130 mm[Hg] 130 mm[Hg] [facility] ([facility]) Body weight 102.060 kg 102.060 kg [facility] ([facility]) Body mass index (BMI) [Ratio] 33.2 kg/m2 33.2 k g/m2 [facility] ([facility]) Body weight 225.00 [lb_av] 225.00 [lb_av] [facility] ([facility]) Body height 69 [in_i] 69 [in_i] [facility] ([facility]) 5'9" Oxygen saturation in Arterial blood by Pulse oximetry 99 % 99 % [facility] ([facility]) Heart rate 105 /min 105 /min [facility] ([facility]) Diastolic blood pressure 82 mm[Hg] 82 mm[Hg] [facility] ([facility]) Systolic blood pressure 102 mm[Hg] 102 mm[Hg] [facility] ([facility]) ID Date Data Source [id number] 09/18/2020 03:11:00 PM EST [facility] spital Name Value Range Interpretation Code Description Data Source(s) Weight Measurement Method 8 8 [facility] Weight 3808 3808 [facility] pital Temperature Source 7 7 [facility] Temperature 97.5 97.5 [facility] Respiratory Effort 1 1 [facility] Respiratory Rate 17 17 [facility] Pulse Assessment Method 4 4 [facility] Pulse Rate 130 130 [facility]ital Height 69 69 [facility] 129/91 129/91 [facility] Weight Measurement Method 8 8 [facility] Weight 3808 3808 [facility] pital Temperature Source 7 7 [facility] Temperature 97.5 97.5 [facility] Respiratory Effort 1 1 [facility] Respiratory Rate 17 17 [facility] Pulse Assessment Method 4 4 G [facility] Pulse Rate 134 [facility] 69 69 [facility] Blood Pressure 129/91 129/91 [facility] ID Date Data Source [id number] 05/06/2020 05:16:00 PM EDT [facility] Hospital Name Value Range Interpretation Code Description Data Source(s) Weight (Calculated Kilograms) 102.06 102.06 [facility] Height (Calculated Centimeters) 172.72 172. 72 [facility] Body Mass Index (BMI) 34.2 34.2 [facility] ID Date Data Source [id number] 04/26/2020 10:06:00 AM EDT [facility] spital Name Value Range Interpretation Code Description Data Source(s) Weight Measurement Method 8 8 [facility] Weight 3904 3904 [facility] pital Temperature Source 7 7 [facility] Temperature 98.1 98.1 [facility] Respiratory Effort 1 1 [facility] Respiratory Rate 18 18 [facility] Pulse Assessment Method 4 4 G [facility] Pulse Rate 118 118 [facility] pital Height 69 69 [facility] 118/96 118/96 [facility] Weight Measurement Method 8 8 [facility] Weight 3904 3904 [facility] pital Temperature Source 7 7 [facility] Temperature 98.1 98.1 [facility] spital Respiratory Effort 1 1 [facility] Respiratory Rate 18 18 [facility] Pulse Assessment Method 4 4 G [facility] Pulse Rate 118 118 [facility] pital Height 69 69 [facility] Blood Pressure 118/96 118/96 [facility] ID Date Data Source [id number] 02/01/2020 08:14:00 PM EDT [facility] Name Value Range Interpretation Code Description Data Source(s) Weight (Calculated Kilograms) 102.06 102.06 [facility] Height (Calculated Centimeters) 172.72 172. 72 [facility] Body Mass Index (BMI) 34.2 34.2 [facility] Hospital ID Date Data Source [id number] 01/11/2020 01:55:00 PM EDT [facility] Name Value Range Interpretation Code Description Data Source(s) Weight (Calculated Kilograms) 102.06 102.06 [facility] Height (Calculated Centimeters) 172.72 172. 72 [facility] Body Mass Index (BMI) 34.2 34.2 [facility] ID Date Data Source [id number] 12/21/2019 02:19:00 PM [facility] Name Value Range Interpretation Code Description Data Source(s) Weight (Calculated Kilograms) 102.06 102.06 [facility] Height (Calculated Centimeters) 172.72 172. 72 [facility] Body Mass Index (BMI) 34.2 34.2 [facility] ID Date Data Source [id number] 11/13/2019 02:34:00 PM [facility] Name Value Range Interpretation Code Description Data Source(s) Weight (Calculated Kilograms) 102.06 102.06 [facility] Height (Calculated Centimeters) 172.72 172. 72 [facility] Body Mass Index (BMI) 34.2 34.2 [facility] ID Date Data Source [id number] 11/17/2019 08:43:00 PM [facility] Name Value Range Interpretation Code Description Data Source(s) Weight (Calculated Kilograms) 102.06 102.06 [facility] Height (Calculated Centimeters) 172.72 172. 72 [facility] Body Mass Index (BMI) 34.2 34.2 [facility] ID Date Data Source [id number] 12/14/2019 01:02:00 PM EST [facility] sp[facility] Name Value Range Interpretation Code Description Data Source(s) Weight Measurement Method 8 8 [facility] Weight 3680 3680 [facility] pital Temperature Source 7 7 [facility] Temperature 98.3 98.3 [facility] sp[facility] Respiratory Effort 1 1 [facility] Respiratory Rate 18 18 [facility] Pulse Assessment Method 4 4 [facility] Pulse Rate 112 112 [facility] 69 69 [facility] Blood Pressure 150/60 150/60 [facility] Weight Measurement Method 8 8 [facility] Weight 3680 3680 [facility] Temperature Source 7 7 [facility] Temperature 98.3 98.3 [facility] Respiratory Effort 1 1 [facility] Respiratory Rate 18 18 [facility] Pulse Assessment Method 4 4 G [facility] Pulse Rate 112 112 [facility] Height 69 69 [facility] Blood Pressure 150/60 150/60 [facility] Weight Measurement Method 8 8 [facility] Weight 3680 3680 [facility] Temperature Source 7 7 [facility] Temperature 98.3 98.3 [facility] Respiratory Effort 1 1 [facility] Respiratory Rate 16 16 [facility] Pulse Assessment Method 4 4 G [facility] Pulse Rate 116 116 [facility] Height 69 69 [facility] Blood Pressure 112/63 112/63 [facility] Weight Measurement Method 8 8 [facility] Weight 3680 3680 [facility] Temperature Source 7 7 [facility] Temperature 98.3 98.3 [facility] Respiratory Effort 1 1 [facility] Respiratory Rate 16 16 [facility] Pulse Assessment Method 4 4 G [facility] Pulse Rate 108 108 [facility] 117/80 117/80 [facility] ID Date Data Source [id number] 10/19/2019 03:24:00 PM [facility] Name Value Range Interpretation Code Description Data Source(s) Weight (Calculated Kilograms) 102.06 102.06 [facility] Height (Calculated Centimeters) 172.72 172. 72 [facility] Body Mass Index (BMI) 34.2 34.2 [facility]
[2020-12-15 12:26] LABS: BASO # 0.1 10^3/uL (0.0-0.2); BASO % 0.4 % (0.0-1.0); EOS # 2.4 10^3/uL (0.0-0.5); EOS % 13.2 % (0.0-3.0); HEMATOCRIT 27.8 % (42.0-52.0); HEMOGLOBIN 8.5 g/dl (13.5-17.5); LYMPH # 2.2 10^3/uL (1.5-5.0); LYMPH % 12.2 % (24.0-44.0); MEAN CORPUSCULAR HEMOGLOBIN 27.2 pg (27.0-33.0); MEAN CORPUSCULAR HGB CONC 30.6 g/dl (32.0-36.5); MEAN CORPUSCULAR VOLUME 89.1 fl (80.0-96.0); MONO # 1.6 10^3/uL (0.0-0.8); MONO % 8.8 % (0.0-5.0); NEUTROPHILS # 11.7 10^3/uL (1.5-8.5); NEUTROPHILS % 64.6 % (36.0-66.0); PLATELET COUNT, AUTOMATED 564 10^3/uL (150-450); RED BLOOD COUNT 3.12 10^6/uL (4.30-6.10); WHITE BLOOD COUNT 18.1 10^3/uL (4.0-10.0)
--- OUTSIDE RECORDS SUMMARY | 2020-12-15 12:33 | CCD ---
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 Volume 9.4-12.4 Below low normal [facility] Neutrophils% (Auto) 31.0-71.0 Normal (applies to non-nume tita results) [facility] Lymphocytes% (Auto) 20.0-55.0 Normal (applies to non-nume tita results) [facility] Monocytes% (Auto) 4.0-12.0 Normal (applies to non-numeri c results) [facility] Eosinophils% (Auto) 1.0-8.0 Above high normal [facility] Basophils% (Auto) 0.0-2.0 Normal (applies to non-numeri c results) [facility] Immature Granulocytes% (Auto) 0.0-2.0 Normal (raquel lies to non-numeric results) [facility] Neutrophils# (Auto) 1.50-6.20 Normal (applies to non-nume tita results) [facility] Lymphocytes# (Auto) 1.20-4.00 Normal (applies to non-nume tita results) [facility] Monocytes# (Auto) 0.00-0.90 Normal (applies to non-numeri c results) [facility] Eosinophils# (Auto) 0.00-0.50 Above high normal [facility] Basophils# (Auto) 0.00-0.20 Normal (applies to non-numeri c results) [facility] Immature Granulocytes# (Auto) 0.00-7.00 No rmal (applies to non-numeric results) [facility] Slide Reviewed By Normal (applies to non-numeri c results) [facility] Slide has been reviewed and findings con firmed by a technologist/systems test technician. ID Date Data Source [id number] 07/11/2020 09:14:00 AM EDT [facility] Name Value Range Interpretation Code Description Data Keysha rce(s) Supporting Document(s) Sodium 139 mmol/L 136-145 Normal (applies to non-numeric resul ts) [facility] Potassium 3.5-5.1 Normal (applies to non-numeric resul ts) [facility] Chloride 102 mmol/L 98-107 Normal (applies to non-numeric resul ts) [facility] Carbon Dioxide CO2 21-32 Normal (applies to non-numer ic results) [facility] Anion Gap 5.0-16.0 Normal (applies to non-numeric resul ts) [facility] BUN 11 mg/dL 7-18 Normal (applies to non-numeric results) [facility] Creatinine,Serum 0.8-1.5 Normal (applies to non-numeric results) [facility] GFR >60 Normal (applies to non-numeric results) [facility] Glucose Level 173 mg/dL 60-99 Above high normal [facility] Reference range is only applicable when patient is fasting Note the following drug interference: Sulfasalazine Sulfapyridine Can see falsely depressed Can see falsely elevated result with up to 17% results with up to 11% decrease in measurement increase in measurement Recommend patients be collected for this test prior to administration of either drug. Calcium 8.5-10.1 Normal (applies to non-numeric resul ts) [facility] Bilirubin,Total 0.1-1.9 Normal (applies to non-numeric results) [facility] SGOT(AST) 23 U/L 15-37 Normal (applies to non-numeric resul ts) [facility] Note the following drug interference: Sulfasalazine Sulfapyridine Can see falsely depressed Can see falsely elevated result with up to 10% results with up to 10% decrease in measurement increase in measurement Recommend patients be collected for this test prior to administration of either drug. SGPT(ALT) 74 U/L 12-78 Normal (applies to non-numeric resul ts) [facility] Note the following drug interference: Sulfasalazine Sulfapyridine Can see falsely depressed Can see falsely elevated result with up to 29% results with up to 10% decrease in measurement increase in measurement Recommend patients be collected for this test prior to administration of either drug. Alkaline Phosphatase 64 U/L 38-126 Normal (applies to non-num martha results) [facility] can increase Alkaline Phosp le vels up to 2 times the normal adult value. Normal values for children and adolescents are 2 to 3 times the normal adult value. Total Protein 6.0-8.2 Normal (applies to non-numeric re sults) [facility] Albumin Level 3.4-5.0 Normal (applies to non-numeric re sults) [facility] ID Date Data Source [id number] 06/16/2020 03:28:00 PM EDT [facility] Name Value Range Interpretation Code Description Data Keysha rce(s) Supporting Document(s) Sodium 141 mmol/L 136-145 Normal (applies to non-numeric resul ts) [facility] Potassium 3.5-5.1 Normal (applies to non-numeric resul ts) [facility] Chloride 105 mmol/L 98-107 Normal (applies to non-numeric resul ts) [facility] Carbon Dioxide CO2 21-32 Normal (applies to non-numer ic results) [facility] Anion Gap 5.0-16.0 Normal (applies to non-numeric resul ts) [facility] BUN 10 mg/dL 7-18 Normal (applies to non-numeric results) [facility] Creatinine,Serum 0.8-1.5 Normal (applies to non-numeric results) [facility] GFR >60 Normal (applies to non-numeric results) [facility] Glucose Level 158 mg/dL 60-99 Above high normal [facility] Reference range is only applicable when patient is fasting Note the following drug interference: Sulfasalazine Sulfapyridine Can see falsely depressed Can see falsely elevated result with up to 17% results with up to 11% decrease in measurement increase in measurement Recommend patients be collected for this test prior to administration of either drug. Calcium 8.5-10.1 Normal (applies to non-numeric resul ts) [facility] Bilirubin,Total 0.1-1.9 Normal (applies to non-numeric results) [facility] SGOT(AST) 25 U/L 15-37 Normal (applies to non-numeric resul ts) [facility] Note the following drug interference: Sulfasalazine Sulfapyridine Can see falsely depressed Can see falsely elevated result with up to 10% results with up to 10% decrease in measurement increase in measurement Recommend patients be collected for this test prior to administration of either drug. SGPT(ALT) 74 U/L 12-78 Normal (applies to non-numeric resul ts) [facility] Note the following drug interference: Sulfasalazine Sulfapyridine Can see falsely depressed Can see falsely elevated result with up to 29% results with up to 10% decrease in measurement increase in measurement Recommend patients be collected for this test prior to administration of either drug. Alkaline Phosphatase 62 U/L 38-126 Normal (applies to non-num martha results) [facility] can increase Alkaline Phosp le vels up to 2 times the normal adult value. Normal values for children and adolescents are 2 to 3 times the normal adult value. Total Protein 6.0-8.2 Normal (applies to non-numeric re sults) [facility] Albumin Level 3.4-5.0 Normal (applies to non-numeric re sults) [facility] ID Date Data Source [id number] 06/16/2020 03:28:00 PM EDT [facility] Name Value Range Interpretation Code Description Data Keysha rce(s) Supporting Document(s) Thyroid Stimulate Hormone TSH 0.358-3.74 No rmal (applies to non-numeric results) [facility] ID Date Data Source [id number] 06/16/2020 03:28:00 PM EDT [facility] Name Value Range Interpretation Code Description Data Keysha rce(s) Supporting Document(s) Free T4 (Free Thyroxine) 0.76-1.46 Normal (applies to non -numeric results) [facility] ID Date Data Source [id number] 06/16/2020 02:32:00 PM EDT [facility] Name Value Range Interpretation Code Description Data Keysha rce(s) Supporting Document(s) White Blood Count 3.5-10.5 Normal (applies to non-numeri c results) [facility] Red Blood Count 4.30-5.70 Below low normal [facility] Hemoglobin 13.5-17.5 Below low normal [facility] Hematocrit 38.8-50.0 Below low normal [facility] Mean Corpuscular Volume 81.2-95.1 Normal (applies to non- numeric results) [facility] Mean Corpuscular Hgb 25.6-32.2 Normal (applies to non-num martha results) [facility] Mean Corpuscular Hgb Conc 32.0-36.0 Normal (applies to no n-numeric results) [facility] Red Cell Distribution Width 11.8-15.6 Normal (appli es to non-numeric results) [facility] Platelet Count 268 x10 3/uL 150-450 Normal (applies to non-numeric results) [facility] Mean Platelet Volume 9.4-12.4 Below low normal [facility] Neutrophils% (Auto) 31.0-71.0 Normal (applies to non-nume tita results) [facility] Lymphocytes% (Auto) 20.0-55.0 Normal (applies to non-nume tita results) [facility] Monocytes% (Auto) 4.0-12.0 Normal (applies to non-numeri c results) [facility] Eosinophils% (Auto) 1.0-8.0 Above high normal [facility] Basophils% (Auto) 0.0-2.0 Normal (applies to non-numeri c results) [facility] Immature Granulocytes% (Auto) 0.0-2.0 Normal (arquel lies to non-numeric results) [facility] Neutrophils# (Auto) 1.50-6.20 Normal (applies to non-nume tita results) [facility] Lymphocytes# (Auto) 1.20-4.00 Normal (applies to non-nume tita results) [facility] Monocytes# (Auto) 0.00-0.90 Normal (applies to non-numeri c results) [facility] Eosinophils# (Auto) 0.00-0.50 Above high normal [facility] Basophils# (Auto) 0.00-0.20 Normal (applies to non-numeri c results) [facility] Immature Granulocytes# (Auto) 0.00-7.00 No rmal (applies to non-numeric results) [facility] Slide Reviewed By Normal (applies to non-numeri c results) [facility] Slide has been reviewed and findings con firmed by a technologist/systems test technician. ID Date Data Source [id number] 05/27/2020 11:00:00 AM EDT [facility] Name Value Range Interpretation Code Description Data Keysha rce(s) Supporting Document(s) Sodium 139 mmol/L 136-145 Normal (applies to non-numeric resul ts) [facility] Potassium 3.5-5.1 Normal (applies to non-numeric resul ts) [facility] Chloride 102 mmol/L 98-107 Normal (applies to non-numeric resul ts) [facility] Carbon Dioxide CO2 21-32 Normal (applies to non-numer ic results) [facility] Anion Gap 5.0-16.0 Normal (applies to non-numeric resul ts) [facility] BUN 9 mg/dL 7-18 Normal (applies to non-numeric results) [facility] Creatinine,Serum 0.8-1.5 Normal (applies to non-numeric results) [facility] GFR >60 Normal (applies to non-numeric results) [facility] Glucose Level 155 mg/dL 60-99 Above high normal [facility] Reference range is only applicable when patient is fasting Note the following drug interference: Sulfasalazine Sulfapyridine Can see falsely depressed Can see falsely elevated result with up to 17% results with up to 11% decrease in measurement increase in measurement Recommend patients be collected for this test prior to administration of either drug. Calcium 8.5-10.1 Normal (applies to non-numeric resul ts) [facility] Bilirubin,Total 0.1-1.9 Normal (applies to non-numeric results) [facility] SGOT(AST) 20 U/L 15-37 Normal (applies to non-numeric resul ts) [facility] Note the following drug interference: Sulfasalazine Sulfapyridine Can see falsely depressed Can see falsely elevated result with up to 10% results with up to 10% decrease in measurement increase in measurement Recommend patients be collected for this test prior to administration of either drug. SGPT(ALT) 70 U/L 12-78 Normal (applies to non-numeric resul ts) [facility] Note the following drug interference: Sulfasalazine Sulfapyridine Can see falsely depressed Can see falsely elevated result with up to 29% results with up to 10% decrease in measurement increase in measurement Recommend patients be collected for this test prior to administration of either drug. Alkaline Phosphatase 66 U/L 38-126 Normal (applies to non-num martha results) [facility] can increase Alkaline Phosp le vels up to 2 times the normal adult value. Normal values for children and adolescents are 2 to 3 times the normal adult value. Total Protein 6.0-8.2 Normal (applies to non-numeric re sults) [facility] Albumin Level 3.4-5.0 Normal (applies to non-numeric re sults) [facility] ID Date Data Source [id number] 05/27/2020 11:00:00 AM EDT [facility] Name Value Range Interpretation Code Description Data Keysha rce(s) Supporting Document(s) Thyroid Stimulate Hormone TSH 0.358-3.74 No rmal (applies to non-numeric results) [facility] ID Date Data Source [id number] 05/27/2020 11:00:00 AM EDT [facility] Name Value Range Interpretation Code Description Data Keysha rce(s) Supporting Document(s) Free T4 (Free Thyroxine) 0.76-1.46 Normal (applies to non -numeric results) [facility] ID Date Data Source [id number] 05/27/2020 10:30:00 AM EDT [facility] Name Value Range Interpretation Code Description Data Keysha rce(s) Supporting Document(s) White Blood Count 3.5-10.5 Normal (applies to non-numeri c results) [facility] Red Blood Count 4.30-5.70 Below low normal [facility] Hemoglobin 13.5-17.5 Below low normal [facility] Hematocrit 38.8-50.0 Normal (applies to non-numeric resul ts) [facility] Mean Corpuscular Volume 81.2-95.1 Normal (applies to non- numeric results) [facility] Mean Corpuscular Hgb 25.6-32.2 Normal (applies to non-num martha results) [facility] Mean Corpuscular Hgb Conc 32.0-36.0 Normal (applies to no n-numeric results) [facility] Red Cell Distribution Width 11.8-15.6 Normal (appli es to non-numeric results) [facility] Platelet Count 246 x10 3/uL 150-450 Normal (applies to non-numeric results) [facility] Mean Platelet Volume 9.4-12.4 Below low normal [facility] Neutrophils% (Auto) 31.0-71.0 Normal (applies to non-nume tita results) [facility] Lymphocytes% (Auto) 20.0-55.0 Normal (applies to non-nume tita results) [facility] Monocytes% (Auto) 4.0-12.0 Normal (applies to non-numeri c results) [facility] Eosinophils% (Auto) 1.0-8.0 Above high normal [facility] Basophils% (Auto) 0.0-2.0 Normal (applies to non-numeri c results) [facility] Immature Granulocytes% (Auto) 0.0-2.0 Normal (raquel lies to non-numeric results) [facility] Neutrophils# (Auto) 1.50-6.20 Normal (applies to non-nume tita results) [facility] Lymphocytes# (Auto) 1.20-4.00 Normal (applies to non-nume tita results) [facility] Monocytes# (Auto) 0.00-0.90 Normal (applies to non-numeri c results) [facility] Eosinophils# (Auto) 0.00-0.50 Above high normal [facility] Basophils# (Auto) 0.00-0.20 Normal (applies to non-numeri c results) [facility] Immature Granulocytes# (Auto) 0.00-7.00 No rmal (applies to non-numeric results) [facility] ID Date Data Source [id number] 05/06/2020 05:40:00 PM EDT [facility] Name Value Range Interpretation Code Description Data Keysha rce(s) Supporting Document(s) UMALB Urine Creatinine result Normal (applies t o non-numeric results) [facility] Interpret with care as there is no estab lished reference range associated with this assay's methodology that pertains to this particular sex and/or age. UMALB Microalbumin,Ur result <1.7 [facility] UMALB Alb/Cre Ratio,Ur result Normal (applies t o non-numeric results) [facility] Test Performed By: [facility] [address] [place] [address] Director: Gino Hoyt MD Reference Ranges for Microalbumin,spot: Normal <30 ug/mg creatinine Microalbuminuria 30-300 ug/mg creatinine Clinical Albuminuria >300 ug/mg creatinine ID Date Data Source [id number] 05/06/2020 05:16:00 PM EDT [facility] Name Value Range Interpretation Code Description Data Keysha rce(s) Supporting Document(s) Creatinine,Urine Normal (applies to non-numeric results) [facility] Interpret with care as there is no estab lished reference range associated with this assay's methodology that pertains to this particular sex and/or age. Microalbumin,Urine <1.7 Above high normal [facility] Albumin/Creatinine Ratio,Urine Normal (applies to non-numeric results) [facility] Test Performed By: [facility] [address] [place] [address] Director: Gino Hoyt MD Reference Ranges for Microalbumin,spot: Normal <30 ug/mg creatinine Microalbuminuria 30-300 ug/mg creatinine Clinical Albuminuria >300 ug/mg creatinine ID Date Data Source [id number] 05/06/2020 12:45:00 PM T [facility] Name Value Range Interpretation Code Description Data Keysha rce(s) Supporting Document(s) Vitamin D, Total 30.0-100.0 Below low normal [facility] ID Date Data Source [id number] 05/06/2020 12:14:00 PM [facility] Name Value Range Interpretation Code Description Data [facility] rce(s) Supporting Document(s) Color,Urine Colorl-Dk Y Normal (applies to non-numeric res ults) [facility] Clarity,Urine Clear Normal (applies to non-numeric re sults) [facility] Specific [place],Urine 1.005-1.030 Normal (applies to non- numeric results) [facility] pH,Urine 5.0-8.0 Normal (applies to non-numeric resul ts) [facility] Protein,Urine Negative [facility] Glucose,Urine Negative [facility] Ketones,Urine Negative [facility] Blood,Urine Negative Normal (applies to non-numeric resu lts) [facility] Bilirubin,Urine Negative Normal (applies to non-numeric results) [facility] Urobilinogen,Urine 0.2-1.0 Normal (applies to non-numer ic results) [facility] Leukocyte Esterase,Urine Negative Normal (applies to non -numeric results) [facility] Nitrite,Urine Negative Normal (applies to non-numeric re sults) [facility] RBC,Urine None Seen Normal (applies to non-numeric resul ts) [facility] WBC,Urine None Seen Normal (applies to non-numeric resul ts) [facility] Casts,Urine None Seen Normal (applies to non-numeric resu lts) [facility] Squamous Cells,Urine None Seen [facility] Amorphous Sediment,Urine None Seen [facility] Bacteria,Urine None Seen [facility] ital Mucus,Urine None [facility] ID Date Data Source [id number] 05/06/2020 12:09:00 PM EDT [facility] Name Value Range Interpretation Code Description Data Keysha rce(s) Supporting Document(s) Sodium 140 mmol/L 136-145 Normal (applies to non-numeric resul ts) [facility] Potassium 3.5-5.1 Normal (applies to non-numeric resul ts) [facility] Chloride 104 mmol/L 98-107 Normal (applies to non-numeric resul ts) [facility] Carbon Dioxide CO2 21-32 Normal (applies to non-numer ic results) [facility] Anion Gap 5.0-16.0 Normal (applies to non-numeric resul ts) [facility] BUN 7 mg/dL 7-18 Normal (applies to non-numeric results) [facility] Creatinine,Serum 0.8-1.5 Normal (applies to non-numeric results) [facility] GFR >60 Normal (applies to non-numeric results) [facility] Glucose Level 202 mg/dL 60-99 Above high normal [facility] Reference range is only applicable when patient is fasting Note the following drug interference: Sulfasalazine Sulfapyridine Can see falsely depressed Can see falsely elevated result with up to 17% results with up to 11% decrease in measurement increase in measurement Recommend patients be collected for this test prior to administration of either drug. Calcium 8.5-10.1 Normal (applies to non-numeric resul ts) [facility] Bilirubin,Total 0.1-1.9 Normal (applies to non-numeric results) [facility] SGOT(AST) 23 U/L 15-37 Normal (applies to non-numeric resul ts) [facility] Note the following drug interference: Sulfasalazine Sulfapyridine Can see falsely depressed Can see falsely elevated result with up to 10% results with up to 10% decrease in measurement increase in measurement Recommend patients be collected for this test prior to administration of either drug. SGPT(ALT) 82 U/L 12-78 Above high normal [facility] Note the following drug interference: Sulfasalazine Sulfapyridine Can see falsely depressed Can see falsely elevated result with up to 29% results with up to 10% decrease in measurement increase in measurement Recommend patients be collected for this test prior to administration of either drug. Alkaline Phosphatase 62 U/L 38-126 Normal (applies to non-num martha results) [facility] can increase Alkaline Phosp le vels up to 2 times the normal adult value. Normal values for children and adolescents are 2 to 3 times the normal adult value. Total Protein 6.0-8.2 Normal (applies to non-numeric re sults) [facility] Albumin Level 3.4-5.0 Normal (applies to non-numeric re sults) [facility] ID Date Data Source [id number] 05/06/2020 12:09:00 PM EDT [facility] Name Value Range Interpretation Code Description Data Keysha rce(s) Supporting Document(s) Thyroid Stimulate Hormone TSH 0.358-3.74 No rmal (applies to non-numeric results) [facility] ID Date Data Source [id number] 05/06/2020 12:09:00 PM EDT [facility] Name Value Range Interpretation Code Description Data Keysha rce(s) Supporting Document(s) Free T4 (Free Thyroxine) 0.76-1.46 Normal (applies to non -numeric results) [facility] ID Date Data Source [id number] 05/06/2020 12:08:00 PM EDT [facility] Name Value Range Interpretation Code Description Data Keysha rce(s) Supporting Document(s) Triglycerides 76 mg/dL <150 Normal (applies to non-numeric re sults) [facility] Cholesterol 153 mg/dL 100-200 Normal (applies to non-numeric resu lts) [facility] LDL Cholesterol Calculated 95 0-130 Normal (applies to n on-numeric results) [facility] HDL Cholesterol 43 mg/dL 40-60 Normal (applies to non-numeric results) [facility] Cholesterol/HDL Ratio 3.6-6.7 Normal (applies to non-nu meric results) [facility] ID Date Data Source [id number] 05/06/2020 11:38:00 AM EDT [facility] Name Value Range Interpretation Code Description Data Keysha rce(s) Supporting Document(s) White Blood Count 3.5-10.5 Normal (applies to non-numeri c results) [facility] Red Blood Count 4.30-5.70 Below low normal [facility] Hemoglobin 13.5-17.5 Below low normal [facility] Hematocrit 38.8-50.0 Below low normal [facility] Mean Corpuscular Volume 81.2-95.1 Normal (applies to non- numeric results) [facility] Mean Corpuscular Hgb 25.6-32.2 Normal (applies to non-num martha results) [facility] Mean Corpuscular Hgb Conc 32.0-36.0 Normal (applies to no n-numeric results) [facility] Red Cell Distribution Width 11.8-15.6 Below low normal [facility] Platelet Count 263 x10 3/uL 150-450 Normal (applies to non-numeric results) [facility] Mean Platelet Volume 9.4-12.4 Below low normal [facility] Neutrophils% (Auto) 31.0-71.0 Normal (applies to non-nume tita results) [facility] Lymphocytes% (Auto) 20.0-55.0 Below low normal [facility] Monocytes% (Auto) 4.0-12.0 Normal (applies to non-numeri c results) [facility] Eosinophils% (Auto) 1.0-8.0 Normal (applies to non-nume tita results) [facility] Basophils% (Auto) 0.0-2.0 Normal (applies to non-numeri c results) [facility] Immature Granulocytes% (Auto) 0.0-2.0 Normal (raquel lies to non-numeric results) [facility] Neutrophils# (Auto) 1.50-6.20 Normal (applies to non-nume ttia results) [facility] Lymphocytes# (Auto) 1.20-4.00 Below low normal [facility] Monocytes# (Auto) 0.00-0.90 Normal (applies to non-numeri c results) [facility] Eosinophils# (Auto) 0.00-0.50 Normal (applies to non-nume tita results) [facility] Basophils# (Auto) 0.00-0.20 Normal (applies to non-numeri c results) [facility] Immature Granulocytes# (Auto) 0.00-7.00 No rmal (applies to non-numeric results) [facility] ID Date Data Source [id number] 03/21/2020 10:51:00 AM EDT [facility] Name Value Range Interpretation Code Description Data Keysha rce(s) Supporting Document(s) Sodium 135 mmol/L 136-145 Below low normal [facility] Potassium 3.5-5.1 Normal (applies to non-numeric resul ts) [facility] Chloride 100 mmol/L 98-107 Normal (applies to non-numeric resul ts) [facility] Carbon Dioxide CO2 21-32 Normal (applies to non-numer ic results) [facility] Anion Gap 5.0-16.0 Normal (applies to non-numeric resul ts) [facility] BUN 10 mg/dL 7-18 Normal (applies to non-numeric results) [facility] Creatinine,Serum 0.8-1.5 Normal (applies to non-numeric results) [facility] GFR >60 Normal (applies to non-numeric results) [facility] Glucose Level 233 mg/dL 60-99 Above high normal [facility] Reference range is only applicable when patient is fasting Note the following drug interference: Sulfasalazine Sulfapyridine Can see falsely depressed Can see falsely elevated result with up to 17% results with up to 11% decrease in measurement increase in measurement Recommend patients be collected for this test prior to administration of either drug. Calcium 8.5-10.1 Normal (applies to non-numeric resul ts) [facility] Bilirubin,Total 0.1-1.9 Normal (applies to non-numeric results) [facility] SGOT(AST) 30 U/L 15-37 Normal (applies to non-numeric resul ts) [facility] Note the following drug interference: Sulfasalazine Sulfapyridine Can see falsely depressed Can see falsely elevated result with up to 10% results with up to 10% decrease in measurement increase in measurement Recommend patients be collected for this test prior to administration of either drug. SGPT(ALT) 73 U/L 12-78 Normal (applies to non-numeric resul ts) [facility] Note the following drug interference: Sulfasalazine Sulfapyridine Can see falsely depressed Can see falsely elevated result with up to 29% results with up to 10% decrease in measurement increase in measurement Recommend patients be collected for this test prior to administration of either drug. Alkaline Phosphatase 78 U/L 38-126 Normal (applies to non-num martha results) [facility] can increase Alkaline Phosp le vels up to 2 times the normal adult value. Normal values for children and adolescents are 2 to 3 times the normal adult value. Total Protein 6.0-8.2 Normal (applies to non-numeric re sults) [facility] Albumin Level 3.4-5.0 Normal (applies to non-numeric re sults) [facility] ID Date Data Source [id number] 03/21/2020 10:51:00 AM EDT [facility] Name Value Range Interpretation Code Description Data Keysha rce(s) Supporting Document(s) Thyroid Stimulate Hormone TSH 0.358-3.74 No rmal (applies to non-numeric results) [facility] ID Date Data Source [id number] 03/21/2020 10:51:00 AM EDT [facility] Name Value Range Interpretation Code Description Data Keysha rce(s) Supporting Document(s) Free T4 (Free Thyroxine) 0.76-1.46 Normal (applies to non -numeric results) [facility] ID Date Data Source [id number] 03/21/2020 10:23:00 AM EDT [facility] Name Value Range Interpretation Code Description Data Keysha rce(s) Supporting Document(s) White Blood Count 3.5-10.5 Normal (applies to non-numeri c results) [facility] Red Blood Count 4.30-5.70 Normal (applies to non-numeric results) [facility] Hemoglobin 13.5-17.5 Normal (applies to non-numeric resul ts) [facility] Hematocrit 38.8-50.0 Normal (applies to non-numeric resul ts) [facility] Mean Corpuscular Volume 81.2-95.1 Normal (applies to non- numeric results) [facility] Mean Corpuscular Hgb 25.6-32.2 Normal (applies to non-num martha results) [facility] Mean Corpuscular Hgb Conc 32.0-36.0 Normal (applies to no n-numeric results) [facility] Red Cell Distribution Width 11.8-15.6 Below low normal [facility] Platelet Count 285 x10 3/uL 150-450 Normal (applies to non-numeric results) [facility] Mean Platelet Volume 9.4-12.4 Below low normal [facility] Neutrophils% (Auto) 31.0-71.0 Normal (applies to non-nume tita results) [facility] Lymphocytes% (Auto) 20.0-55.0 Normal (applies to non-nume tita results) [facility] Monocytes% (Auto) 4.0-12.0 Normal (applies to non-numeri c results) [facility] Eosinophils% (Auto) 1.0-8.0 Normal (applies to non-nume tita results) [facility] Basophils% (Auto) 0.0-2.0 Normal (applies to non-numeri c results) [facility] Immature Granulocytes% (Auto) 0.0-2.0 Normal (raquel lies to non-numeric results) [facility] Neutrophils# (Auto) 1.50-6.20 Normal (applies to non-nume tita results) [facility] Lymphocytes# (Auto) 1.20-4.00 Above high normal [facility] Monocytes# (Auto) 0.00-0.90 Normal (applies to non-numeri c results) [facility] Eosinophils# (Auto) 0.00-0.50 Above high normal [facility] Basophils# (Auto) 0.00-0.20 Normal (applies to non-numeri c results) [facility] Immature Granulocytes# (Auto) 0.00-7.00 No rmal (applies to non-numeric results) [facility] ID Date Data Source [id number] 02/22/2020 11:13:00 AM EDT [facility] Name Value Range Interpretation Code Description Data Keysha rce(s) Supporting Document(s) Sodium 139 mmol/L 136-145 Normal (applies to non-numeric resul ts) [facility] Potassium 3.5-5.1 Normal (applies to non-numeric resul ts) [facility] Chloride 101 mmol/L 98-107 Normal (applies to non-numeric resul ts) [facility] Carbon Dioxide CO2 21-32 Normal (applies to non-numer ic results) [facility] Anion Gap 5.0-16.0 Normal (applies to non-numeric resul ts) [facility] BUN 12 mg/dL 7-18 Normal (applies to non-numeric results) [facility] Creatinine,Serum 0.8-1.5 Normal (applies to non-numeric results) [facility] GFR >60 Normal (applies to non-numeric results) [facility] Glucose Level 227 mg/dL 60-99 Above high normal [facility] Reference range is only applicable when patient is fasting Note the following drug interference: Sulfasalazine Sulfapyridine Can see falsely depressed Can see falsely elevated result with up to 17% results with up to 11% decrease in measurement increase in measurement Recommend patients be collected for this test prior to administration of either drug. Calcium 8.5-10.1 Normal (applies to non-numeric resul ts) [facility] Bilirubin,Total 0.1-1.9 Normal (applies to non-numeric results) [facility] SGOT(AST) 23 U/L 15-37 Normal (applies to non-numeric resul ts) [facility] Note the following drug interference: Sulfasalazine Sulfapyridine Can see falsely depressed Can see falsely elevated result with up to 10% results with up to 10% decrease in measurement increase in measurement Recommend patients be collected for this test prior to administration of either drug. SGPT(ALT) 88 U/L 12-78 Above high normal [facility] Note the following drug interference: Sulfasalazine Sulfapyridine Can see falsely depressed Can see falsely elevated result with up to 29% results with up to 10% decrease in measurement increase in measurement Recommend patients be collected for this test prior to administration of either drug. Alkaline Phosphatase 67 U/L 38-126 Normal (applies to non-num martha results) [facility] can increase Alkaline Phosp le vels up to 2 times the normal adult value. Normal values for children and adolescents are 2 to 3 times the normal adult value. Total Protein 6.0-8.2 Normal (applies to non-numeric re sults) [facility] Albumin Level 3.4-5.0 Normal (applies to non-numeric re sults) [facility] ID Date Data Source [id number] 02/22/2020 11:13:00 AM EDT [facility] Name Value Range Interpretation Code Description Data Keysha rce(s) Supporting Document(s) Thyroid Stimulate Hormone TSH 0.358-3.74 No rmal (applies to non-numeric results) [facility] ID Date Data Source [id number] 02/22/2020 11:13:00 AM EDT [facility] Name Value Range Interpretation Code Description Data Keysha rce(s) Supporting Document(s) Free T4 (Free Thyroxine) 0.76-1.46 Normal (applies to non -numeric results) [facility] ID Date Data Source [id number] 02/22/2020 10:17:00 AM EDT [facility] Name Value Range Interpretation Code Description [facility](s) White Blood Count 3.5-10.5 Normal (applies to non-numeri c results) [facility] Red Blood Count 4.30-5.70 Below low normal [facility] Hemoglobin 13.5-17.5 Below low normal [facility] Hematocrit 38.8-50.0 Normal (applies to non-numeric resul ts) [facility] Mean Corpuscular Volume 81.2-95.1 Normal (applies to non- numeric results) [facility] Mean Corpuscular Hgb 25.6-32.2 Normal (applies to non-num martha results) [facility] Mean Corpuscular Hgb Conc 32.0-36.0 Normal (applies to no n-numeric results) [facility] Red Cell Distribution Width 11.8-15.6 Normal (appli es to non-numeric results) [facility] Platelet Count 237 x10 3/uL 150-450 Normal (applies to non-numeric results) [facility] Mean Platelet Volume 9.4-12.4 Below low normal [facility] Neutrophils% (Auto) 31.0-71.0 Normal (applies to non-nume tita results) [facility] Lymphocytes% (Auto) 20.0-55.0 Normal (applies to non-nume tita results) [facility] Monocytes% (Auto) 4.0-12.0 Normal (applies to non-numeri c results) [facility] Eosinophils% (Auto) 1.0-8.0 Normal (applies to non-nume tita results) [facility] Basophils% (Auto) 0.0-2.0 Normal (applies to non-numeri c results) [facility] Immature Granulocytes% (Auto) 0.0-2.0 Normal (raquel lies to non-numeric results) [facility] Neutrophils# (Auto) 1.50-6.20 Normal (applies to non-nume tita results) [facility] Lymphocytes# (Auto) 1.20-4.00 Normal (applies to non-nume tita results) [facility] Monocytes# (Auto) 0.00-0.90 Normal (applies to non-numeri c results) [facility] Eosinophils# (Auto) 0.00-0.50 Normal (applies to non-nume tita results) [facility] Basophils# (Auto) 0.00-0.20 Normal (applies to non-numeri c results) [facility] Immature Granulocytes# (Auto) 0.00-7.00 No rmal (applies to non-numeric results) [facility] ID Date Data Source [id number] 02/01/2020 09:18:00 PM EDT [facility] Name Value Range Interpretation Code Description Data Keysha rce(s) Supporting Document(s) CEA result 0.2-5.0 Normal (applies to non-numeric resul ts) [facility] % Distribution of CEA 0 [...] be used interchangeably. ID Date Data Source [id number] 02/01/2020 08:14:00 PM EDT [facility] Name Value Range Interpretation Code Description [...] be used interchangeably. ID Date Data Source [id number] 02/01/2020 10:55:00 AM EDT [facility] Name Value Range Interpretation Code Description Data Keysha rce(s) Supporting Document(s) Sodium 138 mmol/L 136-145 Normal (applies to non-numeric resul ts) [facility] Potassium 3.5-5.1 Normal (applies to non-numeric resul ts) [facility] Chloride 102 mmol/L 98-107 Normal (applies to non-numeric resul ts) [facility] Carbon Dioxide CO2 21-32 Normal (applies to non-numer ic results) [facility] Anion Gap 5.0-16.0 Normal (applies to non-numeric resul ts) [facility] BUN 9 mg/dL 7-18 Normal (applies to non-numeric results) [facility] Creatinine,Serum 0.8-1.5 Normal (applies to non-numeric results) [facility] GFR >60 Normal (applies to non-numeric results) [facility] Glucose Level 159 mg/dL 60-99 Above high normal [facility] Reference range is only applicable when patient is fasting Note the following drug interference: Sulfasalazine Sulfapyridine Can see falsely depressed Can see falsely elevated result with up to 17% results with up to 11% decrease in measurement increase in measurement Recommend patients be collected for this test prior to administration of either drug. Calcium 8.5-10.1 Normal (applies to non-numeric resul ts) [facility] Bilirubin,Total 0.1-1.9 Normal (applies to non-numeric results) [facility] SGOT(AST) 21 U/L 15-37 Normal (applies to non-numeric resul ts) [facility] Note the following drug interference: Sulfasalazine Sulfapyridine Can see falsely depressed Can see falsely elevated result with up to 10% results with up to 10% decrease in measurement increase in measurement Recommend patients be collected for this test prior to administration of either drug. SGPT(ALT) 67 U/L 12-78 Normal (applies to non-numeric resul ts) [facility] Note the following drug interference: Sulfasalazine Sulfapyridine Can see falsely depressed Can see falsely elevated result with up to 29% results with up to 10% decrease in measurement increase in measurement Recommend patients be collected for this test prior to administration of either drug. Alkaline Phosphatase 68 U/L 38-126 Normal (applies to non-num martha results) [facility] can increase Alkaline Phosp le vels up to 2 times the normal adult value. Normal values for children and adolescents are 2 to 3 times the normal adult value. Total Protein 6.0-8.2 Normal (applies to non-numeric re sults) [facility] Albumin Level 3.4-5.0 Normal (applies to non-numeric re sults) [facility] ID Date Data Source [id number] 02/01/2020 10:55:00 AM T [facility] Name Value Range Interpretation Code Description Data Keysha rce(s) Supporting Document(s) Thyroid Stimulate Hormone TSH 0.358-3.74 No rmal (applies to non-numeric results) [facility] ID Date Data Source [id number] 02/01/2020 10:55:00 AM EDT [facility] Name Value Range Interpretation Code Description Data Keysha rce(s) Supporting Document(s) Free T4 (Free Thyroxine) 0.76-1.46 Normal (applies to non -numeric results) [facility] ID Date Data Source [id number] 02/01/2020 10:13:00 AM [facility] Name Value Range Interpretation Code Description Data Keysha rce(s) Supporting Document(s) White Blood Count 3.5-10.5 Normal (applies to non-numeri c results) [facility] Red Blood Count 4.30-5.70 Below low normal [facility] Hemoglobin 13.5-17.5 Below low normal [facility] Hematocrit 38.8-50.0 Below low normal [facility] Mean Corpuscular Volume 81.2-95.1 Above high normal [facility] Mean Corpuscular Hgb 25.6-32.2 Normal (applies to non-num martha results) [facility] Mean Corpuscular Hgb Conc 32.0-36.0 Normal (applies to no n-numeric results) [facility] Red Cell Distribution Width 11.8-15.6 Normal (appli es to non-numeric results) [facility] Platelet Count 224 x10 3/uL 150-450 Normal (applies to non-numeric results) [facility] Mean Platelet Volume 9.4-12.4 Below low normal [facility] Neutrophils% (Auto) 31.0-71.0 Normal (applies to non-nume tita results) [facility] Lymphocytes% (Auto) 20.0-55.0 Normal (applies to non-nume tita results) [facility] Monocytes% (Auto) 4.0-12.0 Normal (applies to non-numeri c results) [facility] Eosinophils% (Auto) 1.0-8.0 Normal (applies to non-nume tita results) [facility] Basophils% (Auto) 0.0-2.0 Normal (applies to non-numeri c results) [facility] Immature Granulocytes% (Auto) 0.0-2.0 Normal (raquel lies to non-numeric results) [facility] Neutrophils# (Auto) 1.50-6.20 Normal (applies to non-nume tita results) [facility] Lymphocytes# (Auto) 1.20-4.00 Normal (applies to non-nume tita results) [facility] Monocytes# (Auto) 0.00-0.90 Normal (applies to non-numeri c results) [facility] Eosinophils# (Auto) 0.00-0.50 Normal (applies to non-nume tita results) [facility] Basophils# (Auto) 0.00-0.20 Normal (applies to non-numeri c results) [facility] Immature Granulocytes# (Auto) 0.00-7.00 No rmal (applies to non-numeric results) [facility] ID Date Data Source [id number] 01/12/2020 08:24:00 AM EDT [facility] Name Value Range Interpretation Code Description Data Keysha rce(s) Supporting Document(s) Free T4 (Free Thyroxine) 0.76-1.46 Normal (applies to non -numeric results) [facility] ID Date Data Source [id number] 01/12/2020 07:34:00 AM EDT [facility] Name Value Range Interpretation Code Description Data [facility] rce(s) Supporting Document(s) Sodium 140 mmol/L 136-145 Normal (applies to non-numeric resul ts) [facility] Potassium 3.5-5.1 Normal (applies to non-numeric resul ts) [facility] Chloride 102 mmol/L 98-107 Normal (applies to non-numeric resul ts) [facility] Carbon Dioxide CO2 21-32 Normal (applies to non-numer ic results) [facility] Anion Gap 5.0-16.0 Normal (applies to non-numeric resul ts) [facility] BUN 10 mg/dL 7-18 Normal (applies to non-numeric results) [facility] Creatinine,Serum 0.8-1.5 Normal (applies to non-numeric results) [facility] GFR >60 Normal (applies to non-numeric results) [facility] Glucose Level 154 mg/dL 60-99 Above high normal [facility] Reference range is only applicable when patient is fasting Note the following drug interference: Sulfasalazine Sulfapyridine Can see falsely depressed Can see falsely elevated result with up to 17% results with up to 11% decrease in measurement increase in measurement Recommend patients be collected for this test prior to administration of either drug. Calcium 8.5-10.1 Normal (applies to non-numeric resul ts) [facility] Bilirubin,Total 0.1-1.9 Normal (applies to non-numeric results) [facility] SGOT(AST) 18 U/L 15-37 Normal (applies to non-numeric resul ts) [facility] Note the following drug interference: Sulfasalazine Sulfapyridine Can see falsely depressed Can see falsely elevated result with up to 10% results with up to 10% decrease in measurement increase in measurement Recommend patients be collected for this test prior to administration of either drug. SGPT(ALT) 49 U/L 12-78 Normal (applies to non-numeric resul ts) [facility] Note the following drug interference: Sulfasalazine Sulfapyridine Can see falsely depressed Can see falsely elevated result with up to 29% results with up to 10% decrease in measurement increase in measurement Recommend patients be collected for this test prior to administration of either drug. Alkaline Phosphatase 72 U/L 38-126 Normal (applies to non-num martha results) [facility] can increase Alkaline Phosp le vels up to 2 times the normal adult value. Normal values for children and adolescents are 2 to 3 times the normal adult value. Total Protein 6.0-8.2 Normal (applies to non-numeric re sults) [facility] Albumin Level 3.4-5.0 Normal (applies to non-numeric re sults) [facility] ID Date Data Source [id number] 01/12/2020 07:34:00 AM EDT [facility] Name Value Range Interpretation Code Description Data Keysha rce(s) Supporting Document(s) Thyroid Stimulate Hormone TSH 0.358-3.74 No rmal (applies to non-numeric results) [facility] ID Date Data Source [id number] 01/11/2020 02:26:00 PM EDT [facility] Name Value Range Interpretation Code Description Data Keysha rce(s) Supporting Document(s) CEA result 0.2-5.0 Normal (applies to non-numeric resul ts) [facility] % Distribution of CEA 0 [...] be used interchangeably. ID Date Data Source [id number] 01/11/2020 01:55:00 PM EDT [facility] Name Value Range Interpretation Code Description [...] be used interchangeably. ID Date Data Source [id number] 01/11/2020 09:49:00 AM EDT [facility] Name Value Range Interpretation Code Description Data Keysha rce(s) Supporting Document(s) White Blood Count 3.5-10.5 Normal (applies to non-numeri c results) [facility] Red Blood Count 4.30-5.70 Below low normal [facility] Hemoglobin 13.5-17.5 Below low normal [facility] Hematocrit 38.8-50.0 Below low normal [facility] Mean Corpuscular Volume 81.2-95.1 Normal (applies to non- numeric results) [facility] Mean Corpuscular Hgb 25.6-32.2 Normal (applies to non-num martha results) [facility] Mean Corpuscular Hgb Conc 32.0-36.0 Normal (applies to no n-numeric results) [facility] Red Cell Distribution Width 11.8-15.6 Normal (appli es to non-numeric results) [facility] Platelet Count 212 x10 3/uL 150-450 Normal (applies to non-numeric results) [facility] Mean Platelet Volume 9.4-12.4 Below low normal [facility] Neutrophils% (Auto) 31.0-71.0 Normal (applies to non-nume tita results) [facility] Lymphocytes% (Auto) 20.0-55.0 Normal (applies to non-nume tita results) [facility] Monocytes% (Auto) 4.0-12.0 Normal (applies to non-numeri c results) [facility] Eosinophils% (Auto) 1.0-8.0 Normal (applies to non-nume tita results) [facility] Basophils% (Auto) 0.0-2.0 Normal (applies to non-numeri c results) [facility] Immature Granulocytes% (Auto) 0.0-2.0 Normal (raquel lies to non-numeric results) [facility] Neutrophils# (Auto) 1.50-6.20 Normal (applies to non-nume tita results) [facility] Lymphocytes# (Auto) 1.20-4.00 Normal (applies to non-nume tita results) [facility] Monocytes# (Auto) 0.00-0.90 Normal (applies to non-numeri c results) [facility] Eosinophils# (Auto) 0.00-0.50 Normal (applies to non-nume tita results) [facility] Basophils# (Auto) 0.00-0.20 Normal (applies to non-numeri c results) [facility] Immature Granulocytes# (Auto) 0.00-7.00 No rmal (applies to non-numeric results) [facility] ID Date Data Source [id number] 12/21/2019 03:05:00 PM [facility] Name Value Range Interpretation Code Description Data Keysha rce(s) Supporting Document(s) CEA result 0.2-5.0 Normal (applies to non-numeric resul ts) [facility] % Distribution of CEA 0 - 2.5 in 98.2% of nonsmokers and 87.3% of smokers 2.6 - 5.0 in 1.8% of non-smokers and 8.0% of smokers Serum CEA concentrations should not be interpreted as absolute evidence for the presence or absence of malignant disease. Assayed utilizing the Siem[employer]ub[employer] chemiluminometric technology. Values obtained by using different assay methods cannot be used interchangeably. ID Date Data Source [id number] 12/21/2019 02:19:00 PM EST [facility] Name Value Range Interpretation Code Description [...] malignant disease. Assayed utilizing the [employer] chemiluminometric technology. Values obtained by using different assay methods cannot be used interchangeably. ID Date Data Source [id number] 12/21/2019 09:51:00 AM EST [facility] Name Value Range Interpretation Code Description Data Keysha rce(s) Supporting Document(s) Sodium 140 mmol/L 136-145 Normal (applies to non-numeric resul ts) [facility] Potassium 3.5-5.1 Normal (applies to non-numeric resul ts) [facility] Chloride 104 mmol/L 98-107 Normal (applies to non-numeric resul ts) [facility] Carbon Dioxide CO2 21-32 Normal (applies to non-numer ic results) [facility] Anion Gap 5.0-16.0 Normal (applies to non-numeric resul ts) [facility] BUN 7 mg/dL 7-18 Normal (applies to non-numeric results) [facility] Creatinine,Serum 0.8-1.5 Normal (applies to non-numeric results) [facility] GFR >60 Normal (applies to non-numeric results) [facility] Glucose Level 143 mg/dL 60-99 Above high normal [facility] Reference range is only applicable when patient is fasting Note the following drug interference: Sulfasalazine Sulfapyridine Can see falsely depressed Can see falsely elevated result with up to 17% results with up to 11% decrease in measurement increase in measurement Recommend patients be collected for this test prior to administration of either drug. Calcium 8.5-10.1 Normal (applies to non-numeric resul ts) [facility] Bilirubin,Total 0.1-1.9 Normal (applies to non-numeric results) [facility] SGOT(AST) 27 U/L 15-37 Normal (applies to non-numeric resul ts) [facility] Note the following drug interference: Sulfasalazine Sulfapyridine Can see falsely depressed Can see falsely elevated result with up to 10% results with up to 10% decrease in measurement increase in measurement Recommend patients be collected for this test prior to administration of either drug. SGPT(ALT) 76 U/L 12-78 Normal (applies to non-numeric resul ts) [facility] Note the following drug interference: Sulfasalazine Sulfapyridine Can see falsely depressed Can see falsely elevated result with up to 29% results with up to 10% decrease in measurement increase in measurement Recommend patients be collected for this test prior to administration of either drug. Alkaline Phosphatase 71 U/L 38-126 Normal (applies to non-num martha results) [facility] can increase Alkaline Phosp le vels up to 2 times the normal adult value. Normal values for children and adolescents are 2 to 3 times the normal adult value. Total Protein 6.0-8.2 Normal (applies to non-numeric re sults) [facility] Albumin Level 3.4-5.0 Normal (applies to non-numeric re sults) [facility] ID Date Data Source [id number] 12/21/2019 09:51:00 AM EST [facility] Name Value Range Interpretation Code Description Data Keysha rce(s) Supporting Document(s) Free T4 (Free Thyroxine) 0.76-1.46 Normal (applies to non -numeric results) [facility] ID Date Data Source [id number] 12/21/2019 09:21:00 AM [facility] Name Value Range Interpretation Code Description Data Keysha rce(s) Supporting Document(s) White Blood Count 3.5-10.5 Normal (applies to non-numeri c results) [facility] Red Blood Count 4.30-5.70 Below low normal [facility] Hemoglobin 13.5-17.5 Below low normal [facility] Hematocrit 38.8-50.0 Below low normal [facility] Mean Corpuscular Volume 81.2-95.1 Normal (applies to non- numeric results) [facility] Mean Corpuscular Hgb 25.6-32.2 Normal (applies to non-num martha results) [facility] Mean Corpuscular Hgb Conc 32.0-36.0 Normal (applies to no n-numeric results) [facility] Red Cell Distribution Width 11.8-15.6 Normal (appli es to non-numeric results) [facility] Platelet Count 267 x10 3/uL 150-450 Normal (applies to non-numeric results) [facility] Mean Platelet Volume 9.4-12.4 Below low normal [facility] Neutrophils% (Auto) 31.0-71.0 Normal (applies to non-nume tita results) [facility] Lymphocytes% (Auto) 20.0-55.0 Normal (applies to non-nume tita results) [facility] Monocytes% (Auto) 4.0-12.0 Above high normal [facility] Eosinophils% (Auto) 1.0-8.0 Normal (applies to non-nume tita results) [facility] Basophils% (Auto) 0.0-2.0 Normal (applies to non-numeri c results) [facility] Immature Granulocytes% (Auto) 0.0-2.0 Normal (raquel lies to non-numeric results) [facility] Neutrophils# (Auto) 1.50-6.20 Normal (applies to non-nume tita results) [facility] Lymphocytes# (Auto) 1.20-4.00 Normal (applies to non-nume tita results) [facility] Monocytes# (Auto) 0.00-0.90 Above high normal [facility] Eosinophils# (Auto) 0.00-0.50 Normal (applies to non-nume tita results) [facility] Basophils# (Auto) 0.00-0.20 Normal (applies to non-numeri c results) [facility] Immature Granulocytes# (Auto) 0.00-7.00 No rmal (applies to non-numeric results) [facility] ID Date Data Source [id number] 11/30/2019 10:59:00 AM EST [facility] Name Value Range Interpretation Code Description Data Keysha rce(s) Supporting Document(s) Sodium 141 mmol/L 136-145 Normal (applies to non-numeric resul ts) [facility] Potassium 3.5-5.1 Normal (applies to non-numeric resul ts) [facility] Chloride 103 mmol/L 98-107 Normal (applies to non-numeric resul ts) [facility] Carbon Dioxide CO2 21-32 Normal (applies to non-numer ic results) [facility] Anion Gap 5.0-16.0 Normal (applies to non-numeric resul ts) [facility] BUN 7 mg/dL 7-18 Normal (applies to non-numeric results) [facility] Creatinine,Serum 0.8-1.5 Normal (applies to non-numeric results) [facility] GFR >60 Normal (applies to non-numeric results) [facility] Glucose Level 145 mg/dL 60-99 Above high normal [facility] Reference range is only applicable when patient is fasting Note the following drug interference: Sulfasalazine Sulfapyridine Can see falsely depressed Can see falsely elevated result with up to 17% results with up to 11% decrease in measurement increase in measurement Recommend patients be collected for this test prior to administration of either drug. Calcium 8.5-10.1 Normal (applies to non-numeric resul ts) [facility] Bilirubin,Total 0.1-1.9 Normal (applies to non-numeric results) [facility] SGOT(AST) 23 U/L 15-37 Normal (applies to non-numeric resul ts) [facility] Note the following drug interference: Sulfasalazine Sulfapyridine Can see falsely depressed Can see falsely elevated result with up to 10% results with up to 10% decrease in measurement increase in measurement Recommend patients be collected for this test prior to administration of either drug. SGPT(ALT) 84 U/L 12-78 Above high normal [facility] Note the following drug interference: Sulfasalazine Sulfapyridine Can see falsely depressed Can see falsely elevated result with up to 29% results with up to 10% decrease in measurement increase in measurement Recommend patients be collected for this test prior to administration of either drug. Alkaline Phosphatase 78 U/L 38-126 Normal (applies to non-num martha results) [facility] can increase Alkaline Phosp le vels up to 2 times the normal adult value. Normal values for children and adolescents are 2 to 3 times the normal adult value. Total Protein 6.0-8.2 Normal (applies to non-numeric re sults) [facility] Albumin Level 3.4-5.0 Normal (applies to non-numeric re sults) [facility] ID Date Data Source [id number] 11/30/2019 10:59:00 AM EST [facility] Name Value Range Interpretation Code Description Data Keysha rce(s) Supporting Document(s) Thyroid Stimulate Hormone TSH 0.358-3.74 No rmal (applies to non-numeric results) [facility] ID Date Data Source [id number] 11/30/2019 10:59:00 AM EST [facility] Name Value Range Interpretation Code Description Data Keysha rce(s) Supporting Document(s) Free T4 (Free Thyroxine) 0.76-1.46 Normal (applies to non -numeric results) [facility] ID Date Data Source [id number] 11/30/2019 09:55:00 AM EST [facility] Name Value Range Interpretation Code Description Data Keysha rce(s) Supporting Document(s) White Blood Count 3.5-10.5 Normal (applies to non-numeri c results) [facility] Red Blood Count 4.30-5.70 Normal (applies to non-numeric results) [facility] Hemoglobin 13.5-17.5 Below low normal [facility] Hematocrit 38.8-50.0 Normal (applies to non-numeric resul ts) [facility] Mean Corpuscular Volume 81.2-95.1 Normal (applies to non- numeric results) [facility] Mean Corpuscular Hgb 25.6-32.2 Normal (applies to non-num martha results) [facility] Mean Corpuscular Hgb Conc 32.0-36.0 Normal (applies to no n-numeric results) [facility] Red Cell Distribution Width 11.8-15.6 Normal (appli es to non-numeric results) [facility] Platelet Count 341 x10 3/uL 150-450 Normal (applies to non-numeric results) [facility] Mean Platelet Volume 9.4-12.4 Below low normal [facility] Neutrophils% (Auto) 31.0-71.0 Normal (applies to non-nume tita results) [facility] Lymphocytes% (Auto) 20.0-55.0 Normal (applies to non-nume tita results) [facility] Monocytes% (Auto) 4.0-12.0 Above high normal [facility] Eosinophils% (Auto) 1.0-8.0 Normal (applies to non-nume tita results) [facility] Basophils% (Auto) 0.0-2.0 Normal (applies to non-numeri c results) [facility] Immature Granulocytes% (Auto) 0.0-2.0 Normal (raquel lies to non-numeric results) [facility] Neutrophils# (Auto) 1.50-6.20 Normal (applies to non-nume tita results) [facility] Lymphocytes# (Auto) 1.20-4.00 Above high normal [facility] Monocytes# (Auto) 0.00-0.90 Above high normal [facility] Eosinophils# (Auto) 0.00-0.50 Normal (applies to non-nume tita results) [facility] Basophils# (Auto) 0.00-0.20 Normal (applies to non-numeri c results) [facility] Immature Granulocytes# (Auto) 0.00-7.00 No rmal (applies to non-numeric results) [facility] ID Date Data Source [id number] 11/13/2019 02:43:00 PM EST [facility]ital Pending Campylobacter: Not detected C.difficile [...] Not detected Shiga toxin 1/2: Not detected [facility] B read back information 11/13/19 1442 RINA Methodology: Multiplexed PCR Reference Range: None detected Adenovirus F 40/41: Not detected Astrovirus: Detected Norovirus GI/GII: Not detected Rotavirus A: Not detected Sapovirus: Not detected Name Value Range Interpretation Code Description Data Keysha rce(s) Supporting Document(s) ID Date Data Source [id number] 11/12/2019 05:40:00 PM [facility] Collected By: Nurse Initials: pc Time Collected: 1731 Name Value Range Interpretation Code Description Data [facility] rce(s) Supporting Document(s) Color,Urine Colorl-Dk Y Normal (applies to non-numeric res ults) [facility] Clarity,Urine Clear Normal (applies to non-numeric re sults) [facility] Specific [place],Urine 1.015-1.025 Normal (applies to non- numeric results) [facility] pH,Urine 5.0-7.0 Normal (applies to non-numeric resul ts) [facility] Protein,Urine Negative Normal (applies to non-numeric re sults) [facility] Glucose,Urine Negative [facility] Ketones,Urine Negative Normal (applies to non-numeric re sults) [facility] Blood,Urine Negative Normal (applies to non-numeric resu lts) [facility] Bilirubin,Urine Negative Normal (applies to non-numeric results) [facility] Urobilinogen,Urine Normal Normal (applies to non-numer ic results) [facility] Leukocyte Esterase,Urine Negative Normal (applies to non -numeric results) [facility] Nitrite,Urine Negative Normal (applies to non-numeric re sults) [facility] ID Date Data Source [id number] 11/18/2019 01:21:00 AM [facility] NO GROWTH AFTER 120 HOURS (5 Days) Proc edure Performed By: [facility] [address] [place] [address] Director: Gino Davila Name Value Range Interpretation Code Description Data Keysha rce(s) Supporting Document(s) ID Date Data Source [id number] 11/17/2019 08:43:00 PM EST [facility] NO GROWTH AFTER 120 HOURS (5 Days) Pr ocedure Performed By: [facility] [address] [place] [address] Director: Gino Davila Name Value Range Interpretation Code Description Data Keysha rce(s) Supporting Document(s) ID Date Data Source [id number] 11/18/2019 01:21:00 AM [facility] AFTER [facility] HOURS (5 Days) Proc edure Performed By: [facility] [address] [place] [address] Director: Gino Davila Name Value Range Interpretation Code Description Data Keysha rce(s) Supporting Document(s) ID Date Data Source [id number] 11/17/2019 08:43:00 PM [facility] NO GROWTH AFTER 120 HOURS (5 Days) Pr ocedure Performed By: [facility] [address] [place] [address] Director: Gino Davila Name Value Range Interpretation Code Description Data Keysha rce(s) Supporting Document(s) ID Date Data Source [id number] 11/12/2019 05:25:00 PM [facility] Name Value Range Interpretation Code Description Data Keysha rce(s) Supporting Document(s) PT 9.2-11.7 Normal (applies to non-numeric results) [facility] INR Normal (applies to non-numeric results) [facility] The use of INR is restricted to patients on stable oral anticoagulant. Therapeutic Range: 2.0 - 3.0 High Risk Range: 2.5 - 3.5 ID Date Data Source [id number] 11/12/2019 05:25:00 PM [facility] Name Value Range Interpretation Code Description Data Keysha rce(s) Supporting Document(s) PTT 23.8-37.9 Normal (applies to non-numeric results) [facility] ID Date Data Source [id number] 11/12/2019 05:15:00 PM [facility] Name Value Range Interpretation Code Description Data Keysha rce(s) Supporting Document(s) Lactic Acid 0.4-2.0 Normal (applies to non-numeric resu lts) [facility] ID Date Data Source [id number] 11/12/2019 04:59:00 PM [facility] Name Value Range Interpretation Code Description Data Keysha rce(s) Supporting Document(s) Sodium 135 mmol/L 136-145 Below low normal [facility] Potassium 3.5-5.1 Normal (applies to non-numeric resul ts) [facility] Chloride 100 mmol/L 98-107 Normal (applies to non-numeric resul ts) [facility] Carbon Dioxide CO2 21-32 Normal (applies to non-numer ic results) [facility] Anion Gap 5.0-16.0 Normal (applies to non-numeric resul ts) [facility] BUN 14 mg/dL 7-18 Normal (applies to non-numeric results) [facility] Creatinine,Serum 0.8-1.5 Normal (applies to non-numeric results) [facility] GFR >60 Normal (applies to non-numeric results) [facility] Glucose Level 163 mg/dL 60-99 Above high normal [facility] Reference range is only applicable when patient is fasting Note the following drug interference: Sulfasalazine Sulfapyridine Can see falsely depressed Can see falsely elevated result with up to 17% results with up to 11% decrease in measurement increase in measurement Recommend patients be collected for this test prior to administration of either drug. Calcium 8.5-10.1 Below low normal [facility] Bilirubin,Total 0.1-1.9 Normal (applies to non-numeric results) [facility] SGOT(AST) 39 U/L 15-37 Above high normal [facility] o[facility]ital Note the following drug interference: Sulfasalazine Sulfapyridine Can see falsely depressed Can see falsely elevated result with up to 10% results with up to 10% decrease in measurement increase in measurement Recommend patients be collected for this test prior to administration of either drug. SGPT(ALT) 113 U/L 12-78 Above high normal [facility]ital Note the following drug interference: Sulfasalazine Sulfapyridine Can see falsely depressed Can see falsely elevated result with up to 29% results with up to 10% decrease in measurement increase in measurement Recommend patients be collected for this test prior to administration of either drug. Alkaline Phosphatase 61 U/L 38-126 Normal (applies to non-num martha results) [facility] can increase Alkaline Phosp le vels up to 2 times the normal adult value. Normal values for children and adolescents are 2 to 3 times the normal adult value. Total Protein 6.0-8.2 Normal (applies to non-numeric re sults) [facility] Albumin Level 3.4-5.0 Normal (applies to non-numeric re sults) [facility] ID Date Data Source [id number] 11/12/2019 05:00:00 PM [facility] Name Value Range Interpretation Code Description Data Keysha rce(s) Supporting Document(s) Troponin I 0.000-0.056 Normal (applies to non-numeric resu lts) [facility] ID Date Data Source [id number] 11/12/2019 05:00:00 PM [facility] Value Range Interpretation Code Description Data Keysha rce(s) Supporting Document(s) Amylase 60 U/L 25-115 Normal (applies to non-numeric resul ts) [facility] ID Date Data Source [id number] 11/12/2019 05:00:00 PM [facility] Name Value Range Interpretation Code Description Data Keysha rce(s) Supporting Document(s) Lipase 140 U/L 73-393 Normal (applies to non-numeric resul ts) [facility] ID Date Data Source [id number] 11/12/2019 04:54:00 PM [facility] Value Range Interpretation Code Description Data Keysha rce(s) Supporting Document(s) White Blood Count 3.5-10.5 Normal (applies to non-numeri c results) [facility] Red Blood Count 4.30-5.70 Normal (applies to non-numeric results) [facility] Hemoglobin 13.5-17.5 Below low normal [facility] Hematocrit 38.8-50.0 Normal (applies to non-numeric resul ts) [facility] Mean Corpuscular Volume 81.2-95.1 Normal (applies to non- numeric results) [facility] Mean Corpuscular Hgb 25.6-32.2 Normal (applies to non-num martha results) [facility] Mean Corpuscular Hgb Conc 32.0-36.0 Normal (applies to no n-numeric results) [facility] Red Cell Distribution Width 11.8-15.6 Normal (appli es to non-numeric results) [facility] Platelet Count 122 x10 3/uL 150-450 Below low normal [facility] Slide has been reviewed and findings con firmed by a technologist/systems test technician. Mean Platelet Volume 9.4-12.4 Below low normal [facility] Neutrophils% (Auto) 31.0-71.0 Normal (applies to non-nume tita results) [facility] Lymphocytes% (Auto) 20.0-55.0 Normal (applies to non-nume tita results) [facility] Monocytes% (Auto) 4.0-12.0 Normal (applies to non-numeri c results) [facility] Eosinophils% (Auto) 1.0-8.0 Below low normal [facility] Basophils% (Auto) 0.0-2.0 Normal (applies to non-numeri c results) [facility] Immature Granulocytes% (Auto) 0.0-2.0 Normal (raquel lies to non-numeric results) [facility] Neutrophils# (Auto) 1.50-6.20 Normal (applies to non-nume tita results) [facility] Lymphocytes# (Auto) 1.20-4.00 Normal (applies to non-nume tita results) [facility] Monocytes# (Auto) 0.00-0.90 Normal (applies to non-numeri c results) [facility] Eosinophils# (Auto) 0.00-0.50 Normal (applies to non-nume tita results) [facility] Basophils# (Auto) 0.00-0.20 Normal (applies to non-numeri c results) [facility] Immature Granulocytes# (Auto) 0.00-7.00 No rmal (applies to non-numeric results) [facility] ID Date Data Source [id number] 11/13/2019 07:09:00 AM EST [facility] Imaging Services Department Imaging Report [address], [place] [address] %(RAD)RES..mtdd.print.filter("line") Name: MAMTA YORK : 1970 Age/Sex: 48M Ordering Provider: Efe Quispe MD Med Rec #: [id number] Reg Status: [facility] ER Room #: Date of Service: 11/12/19 Report Number: [id number] cc:Kole Perez NP Send Report To: [id number] CT/CT Abdomen & Pelvis No Contras Reason [...] Date/Time: 11/12/19 1740 Transcribed Date/Time: 11/13/19 0709 Operations Trainer: TESSIE Name Value Range Interpretation Code Description Data Keysha rce(s) Supporting Document(s) ID Date Data Source [id number] 11/13/2019 08:48:00 AM [facility] Imaging Services Department Imaging Report [address] [place] [address] %(RAD)RES..mtdd.print.filter("line") Name: MAMTA YORK : 1970 Age/Sex: 48M Ordering Provider: Efe Quispe MD Med Rec #: [id number] Reg Status: [facility] ER Room #: Date of Service: 11/12/19 Report Number: [id number] cc:Kole Perez NP Send Report To: [id number] XRP/XR Chest Xray Portable Reason for exam: [...] Date/Time: 11/12/19 1643 Transcribed Date/Time: 11/13/19 0848 Operations Trainer: MICHAEL Name Value Range Interpretation Code Description Data [facility](s) Supporting Document(s) ID Date Data Source [id number] 11/12/2019 04:47:00 PM [facility] spital Method performed by Isothermal Nucle ic [...] Name Value Range Interpretation Code Description Data [facility] Supporting Document(s) ID Date Data Source [id number] 11/13/2019 02:34:00 PM [facility] Methodology: Multiplexed PCR Refer ence Range: None detected Name Value Range Interpretation Code Description Data [facility] Supporting Document(s) ID Date Data Source [id number] 10/19/2019 03:32:00 PM [facility] Name Value Range Interpretation Code Description Data [facility](s) Supporting Document(s) CEA result 0.2-5.0 [facility] % Distribution of CEA 0 [...] be used interchangeably. ID Date Data Source [id number] 10/19/2019 03:24:00 PM [facility] Name Value Range Interpretation Code Description Data [facility](s) Supporting Document(s) CEA 0.2-5.0 Above high normal [facility] % Distribution of CEA 0 - 2.5 [...] be used interchangeably. ID Date Data Source [id number] 10/19/2019 02:28:00 PM EST [facility] Name Value Range Interpretation Code Description Data Keysha rce(s) Supporting Document(s) Sodium 140 mmol/L 136-145 Normal (applies to non-numeric resul ts) [facility] Potassium 3.5-5.1 Normal (applies to non-numeric resul ts) [facility] Chloride 100 mmol/L 98-107 Normal (applies to non-numeric resul ts) [facility] Carbon Dioxide CO2 21-32 Normal (applies to non-numer ic results) [facility] Anion Gap 5.0-16.0 Normal (applies to non-numeric resul ts) [facility] BUN 9 mg/dL 7-18 Normal (applies to non-numeric results) [facility] Creatinine,Serum 0.8-1.5 Normal (applies to non-numeric results) [facility] GFR >60 Normal (applies to non-numeric results) [facility] Glucose Level 133 mg/dL 60-99 Above high normal [facility] Reference range is only applicable when patient is fasting Note the following drug interference: Sulfasalazine Sulfapyridine Can see falsely depressed Can see falsely elevated result with up to 17% results with up to 11% decrease in measurement increase in measurement Recommend patients be collected for this test prior to administration of either drug. Calcium 8.5-10.1 Normal (applies to non-numeric resul ts) [facility] Bilirubin,Total 0.1-1.9 Normal (applies to non-numeric results) [facility] SGOT(AST) 16 U/L 15-37 Normal (applies to non-numeric resul ts) [facility] Note the following drug interference: Sulfasalazine Sulfapyridine Can see falsely depressed Can see falsely elevated result with up to 10% results with up to 10% decrease in measurement increase in measurement Recommend patients be collected for this test prior to administration of either drug. SGPT(ALT) 56 U/L 12-78 Normal (applies to non-numeric resul ts) [facility] Note the following drug interference: Sulfasalazine Sulfapyridine Can see falsely depressed Can see falsely elevated result with up to 29% results with up to 10% decrease in measurement increase in measurement Recommend patients be collected for this test prior to administration of either drug. Alkaline Phosphatase 73 U/L 38-126 Normal (applies to non-num martha results) [facility] can increase Alkaline Phosp le vels up to 2 times the normal adult value. Normal values for children and adolescents are 2 to 3 times the normal adult value. Total Protein 6.0-8.2 Normal (applies to non-numeric re sults) [facility] Albumin Level 3.4-5.0 Normal (applies to non-numeric re sults) [facility] ID Date Data Source [id number] 10/19/2019 02:28:00 PM [facility] Name Value Range Interpretation Code Description Data Keysha rce(s) Supporting Document(s) Thyroid Stimulate Hormone TSH 0.358-3.740 No rmal (applies to non-numeric results) [facility] ID Date Data Source [id number] 10/19/2019 02:28:00 PM [facility] Name Value Range Interpretation Code Description Data Keysha rce(s) Supporting Document(s) Free T4 (Free Thyroxine) 0.76-1.46 Normal (applies to non -numeric results) [facility] ID Date Data Source [id number] 10/19/2019 09:42:00 AM [facility] Name Value Range Interpretation Code Description Data Keysha rce(s) Supporting Document(s) White Blood Count 3.5-10.5 Above high normal [facility] Red Blood Count 4.30-5.70 Normal (applies to non-numeric results) [facility] Hemoglobin 13.5-17.5 Below low normal [facility] Hematocrit 38.8-50.0 Normal (applies to non-numeric resul ts) [facility] Mean Corpuscular Volume 81.2-95.1 Normal (applies to non- numeric results) [facility] Mean Corpuscular Hgb 25.6-32.2 Normal (applies to non-num martha results) [facility] Mean Corpuscular Hgb Conc 32.0-36.0 Normal (applies to no n-numeric results) [facility] Red Cell Distribution Width 11.8-15.6 Normal (appli es to non-numeric results) [facility] Platelet Count 396 x10 3/uL 150-450 Normal (applies to non-numeric results) [facility] Mean Platelet Volume 9.4-12.4 Below low normal [facility] Neutrophils% (Auto) 31.0-71.0 Normal (applies to non-nume tita results) [facility] Lymphocytes% (Auto) 20.0-55.0 Normal (applies to non-nume tita results) [facility] Monocytes% (Auto) 4.0-12.0 Normal (applies to non-numeri c results) [facility] Eosinophils% (Auto) 1.0-8.0 Above high normal [facility] Basophils% (Auto) 0.0-2.0 Normal (applies to non-numeri c results) [facility] Immature Granulocytes% (Auto) 0.0-2.0 Normal (raquel lies to non-numeric results) [facility] Neutrophils# (Auto) 1.50-6.20 Normal (applies to non-nume tita results) [facility] Lymphocytes# (Auto) 1.20-4.00 Above high normal [facility] Monocytes# (Auto) 0.00-0.90 Above high normal [facility] Eosinophils# (Auto) 0.00-0.50 Above high normal [facility] Basophils# (Auto) 0.00-0.20 Normal (applies to non-numeri c results) [facility] Immature Granulocytes# (Auto) 0.00-7.00 No rmal (applies to non-numeric results) [facility] Slide has been reviewed and findings con firmed by a technologist/systems test technician. ID Date Data Source [id number] 10/19/2019 01:40:00 PM [facility] Imaging Services Department Imaging Report [address] [place] [id number] %(RAD)RES..mtdd.print.filter("line") Name: MAMTA YORK : 1970 Age/Sex: 48M Ordering Provider: Kristel Campos MD Med Rec #: [id number] Reg Status: DEP REF Room #: Date of Service: 10/19/19 Report Number: [id number] cc:Kristel Campos MD; Kole Perez NP Send Report To: [id number] US/US Dup Upper Ext Veins Rt Reason [...] Date/Time: 10/19/19 1333 Transcribed Date/Time: 10/19/19 1340 Operations Trainer: TESSIE Name Value Range Interpretation Code Description Data Keysha rce(s) Supporting Document(s) ID Date Data Source [id number] 10/19/2019 01:50:00 PM [facility] Imaging Services Department Imaging Report [address] [place], [place] [address] %(RAD)RES..mtdd.print.filter("line") Name: MAMTA YORK : 1970 Age/Sex: 48M Ordering Provider: Kristel Campos MD Med Rec #: [id number] Reg Status: DEP REF Room #: Date of Service: 10/19/19 Report Number: [id number] cc:Kristel Campos MD; Kole Perez NP Send Report To: [id number] US/US Soft Tissue Head/Neck Reason for exam: [...] Date/Time: 10/19/19 1330 Transcribed Date/Time: 10/19/19 1350 Operations Trainer: TESSIE Name Value Range Interpretation Code Description Data Keysha rce(s) Supporting Document(s) Procedure Social History Code Duration Value Status Description Data Source(s ) Smoking 12/15/2020 12:00:00 AM EST - 11/04/2018 12:00:00 AM EST Patient is a former smoker completed Patient is a former smoker [facility] ([facility], ) Vital Signs ID Date Data Source UNK Name Value Range Interpretation Code Description Data Source(s) Body surface area Derived from formula 2.12 m2 2.12 m2 [facility] ([facility]) Body weight 96.617 kg 96.617 kg [facility] ([facility]) [place] body weight 160 [lb_av] 160 [lb_av] [facility] ([facility]) Body mass index (BMI) [Ratio] 31.5 kg/m2 31.5 k g/m2 [facility] ([facility]) Body weight 213.00 [lb_av] 213.00 [lb_av] [facility] ([facility]) Body height 69 [in_i] 69 [in_i] [facility] ([facility]) 5'9" Body temperature 96.9 [degF] 96.9 [degF] [facility] ([facility]) Oxygen saturation in Arterial blood by Pulse oximetry 95 % 95 % [facility] ([facility]) Heart rate 134 /min 134 /min [facility] ([facility]) Diastolic blood pressure 84 mm[Hg] 84 mm[Hg] [facility] ([facility]) Systolic blood pressure 146 mm[Hg] 146 mm[Hg] [facility] ([facility]) Body surface area Derived from formula 2.24 m2 2.24 m2 [facility] ([facility]) Body weight 109.771 kg 109.771 kg [facility] ([facility]) [place] body weight 160 [lb_av] 160 [lb_av] [facility] ([facility]) Body mass index (BMI) [Ratio] 35.7 kg/m2 35.7 k g/m2 [facility] ([facility]) Body weight 242.00 [lb_av] 242.00 [lb_av] [facility] Body height 69 [in_i] 69 [in_i] [facility] ([facility]) 5'9" Body temperature 96.9 [degF] 96.9 [degF] [facility] ([facility]) Oxygen saturation in Arterial blood by Pulse oximetry 97 % 97 % [facility] ([facility]) Heart rate 93 /min 93 /min [facility] ([facility]) Diastolic blood pressure 70 mm[Hg] 70 mm[Hg] [facility] ([facility]) Systolic blood pressure 130 mm[Hg] 130 mm[Hg] [facility] ([facility]) Body weight 102.060 kg 102.060 kg [facility] ([facility]) Body mass index (BMI) [Ratio] 33.2 kg/m2 33.2 k g/m2 [facility] ([facility]) Body weight 225.00 [lb_av] 225.00 [lb_av] [facility] ([facility]) Body height 69 [in_i] 69 [in_i] [facility] ([facility]) 5'9" Oxygen saturation in Arterial blood by Pulse oximetry 99 % 99 % [facility] ([facility]) Heart rate 105 /min 105 /min [facility] ([facility]) Diastolic blood pressure 82 mm[Hg] 82 mm[Hg] [facility] ([facility]) Systolic blood pressure 102 mm[Hg] 102 mm[Hg] [facility] ([facility]) ID Date Data Source [id number] 09/18/2020 03:11:00 PM EST [facility] spital Name Value Range Interpretation Code Description Data Source(s) Weight Measurement Method 8 8 [facility] Weight 3808 3808 [facility] pital Temperature Source 7 7 [facility] Temperature 97.5 97.5 [facility] Respiratory Effort 1 1 [facility] Respiratory Rate 17 17 [facility] Pulse Assessment Method 4 4 G [facility] Pulse Rate 130 130 [facility]ital [facility] 69 69 [facility] 129/91 129/91 [facility] Weight Measurement Method 8 8 [facility] Weight 3808 3808 [facility] pital Temperature Source 7 7 [facility] Temperature 97.5 97.5 [facility] Respiratory Effort 1 1 [facility] Respiratory Rate 17 17 [facility] Pulse Assessment Method 4 4 G [facility] Pulse Rate 134 134 [facility] pital Height 69 69 [facility] Blood Pressure 129/91 129/91 [facility] ID Date Data Source [id number] 05/06/2020 05:16:00 PM EDT [facility] Name Value Range Interpretation Code Description Data Source(s) Weight (Calculated Kilograms) 102.06 102.06 [facility] Height (Calculated Centimeters) 172.72 172. 72 [facility] Body Mass Index (BMI) 34.2 34.2 [facility] ID Date Data Source [id number] 04/26/2020 10:06:00 AM EDT [facility] Name Value Range Interpretation Code Description Data Source(s) Weight Measurement Method 8 8 [facility] Weight 3904 3904 [facility] pital Temperature Source 7 7 [facility] Temperature 98.1 98.1 [facility] Respiratory Effort 1 1 [facility] Respiratory Rate 18 18 [facility] Pulse Assessment Method 4 4 G [facility] Pulse Rate 118 118 [facility] pital Height 69 69 [facility] 118/96 118/96 [facility] Weight Measurement Method 8 8 [facility] Weight 3904 3904 [facility] pital Temperature Source 7 7 [facility] Temperature 98.1 98.1 [facility] Respiratory Effort 1 1 [facility] Respiratory Rate 18 18 [facility] Pulse Assessment Method 4 4 [facility] Pulse Rate 118 118 [facility] pital Height 69 69 [facility] Blood Pressure 118/96 118/96 [facility] ID Date Data Source [id number] 02/01/2020 08:14:00 PM EDT [facility] Name Value Range Interpretation Code Description Data Source(s) Weight (Calculated Kilograms) 102.06 102.06 [facility] Height (Calculated Centimeters) 172.72 172. 72 [facility] Body Mass Index (BMI) 34.2 34.2 [facility] ID Date Data Source [id number] 01/11/2020 01:55:00 PM T [facility] Name Value Range Interpretation Code Description Data Source(s) Weight (Calculated Kilograms) 102.06 102.06 [facility] Height (Calculated Centimeters) 172.72 172. 72 [facility] Body Mass Index (BMI) 34.2 34.2 [facility] ID Date Data Source [id number] 12/21/2019 02:19:00 PM [facility] Name Value Range Interpretation Code Description Data Source(s) Weight (Calculated Kilograms) 102.06 102.06 [facility] Height (Calculated Centimeters) 172.72 172. 72 [facility] Body Mass Index (BMI) 34.2 34.2 [facility] ID Date Data Source [id number] 11/13/2019 02:34:00 PM [facility] Name Value Range Interpretation Code Description Data Source(s) Weight (Calculated Kilograms) 102.06 102.06 [facility] Height (Calculated Centimeters) 172.72 172. 72 [facility] Body Mass Index (BMI) 34.2 34.2 [facility] ID Date Data Source [id number] 11/17/2019 08:43:00 PM [facility] Name Value Range Interpretation Code Description Data Source(s) Weight (Calculated Kilograms) 102.06 102.06 [facility] Height (Calculated Centimeters) 172.72 172. 72 [facility] Body Mass Index (BMI) 34.2 34.2 [facility] ID Date Data Source [id number] 12/14/2019 01:02:00 PM EST [facility] Name Value Range Interpretation Code Description Data Source(s) Weight Measurement Method 8 8 [facility] Weight 3680 3680 [facility] pital Temperature Source 7 7 [facility] Temperature 98.3 98.3 [facility] Respiratory Effort 1 1 [facility] Respiratory Rate 18 18 [facility] Pulse Assessment Method 4 4 G [facility] Pulse Rate 112 112 [facility] pital Height 69 69 [facility] Blood Pressure 150/60 150/60 [facility] Weight Measurement Method 8 8 [facility] Weight 3680 3680 [facility] pital Temperature Source 7 7 [facility] Temperature 98.3 98.3 [facility] Respiratory Effort 1 1 [facility] Respiratory Rate 18 18 [facility] Pulse Assessment Method 4 4 G [facility] Pulse Rate 112 112 [facility] pital Height 69 69 [facility] pital Blood Pressure 150/60 150/60 [facility] Weight Measurement Method 8 8 [facility] Weight 3680 3680 [facility] pital Temperature Source 7 7 [facility] Temperature 98.3 98.3 [facility] Respiratory Effort 1 1 [facility] Respiratory Rate 16 16 [facility] Pulse Assessment Method 4 4 [facility] Pulse Rate 116 116 [facility] pital Height 69 69 [facility] pital Blood Pressure 112/63 112/63 [facility] Weight Measurement Method 8 8 [facility] Weight 3680 3680 [facility] pital Temperature Source 7 7 [facility] Temperature 98.3 98.3 [facility] spital Respiratory Effort 1 1 [facility] Respiratory Rate 16 16 [facility] Pulse Assessment Method 4 4 G [facility] Pulse Rate 108 108 [facility]ital [facility] 69 69 [facility] 117/80 117/80 [facility] ID Date Data Source [id number] 10/19/2019 03:24:00 PM [facility] Name Value Range Interpretation Code Description Data Source(s) Weight (Calculated Kilograms) 102.06 102.06 [facility] Height (Calculated Centimeters) 172.72 172. 72 [facility] Body Mass Index (BMI) 34.2 34.2 [facility]
--- NOTE | 2020-12-15 12:45 | REP ---
INDICATION: DYSPNEA/COUGH. COMPARISON: Comparison chest x-ray 15 December 2020 8:41 a.m.. TECHNIQUE: Portable upright AP chest radiograph. 12:30 p.m. film. FINDINGS: There is a moderate to large right pleural effusion. Right paratracheal and right hilar soft tissue enlargement is seen consistent with adenopathy. There is considerable volume loss in the right lung. Air bronchograms are seen. There is some mediastinal shift to the right suggesting some degree of atelectasis as well. There is cephalization of the pulmonary vasculature visible in the left chest.. EKG monitoring electrodes are seen overlying the chest.. A right-sided [id number] catheter is again noted in place. IMPRESSION: Right hilar and mediastinal adenopathy persists. There is evidence of significant atelectasis in the right lower lobe. Right pleural effusion. Cephalization of the pulmonary vasculature visible on the left. <Electronically signed by Herbie Cosme > 12/15/20 [id number]
[2020-12-15 12:57] LABS: INR 1.1; PROTHROMBIN TIME 14.4 SECONDS (12.5-14.3)
[2020-12-15 13:01] LABS: ALBUMIN 2.8 GM/DL (3.2-5.2); ALT/SGPT 28 U/L (12-78); BILIRUBIN,DIRECT < 0.1 MG/DL (0.0-0.2); BILIRUBIN,TOTAL 0.2 MG/DL (0.2-1.0); BLOOD UREA NITROGEN 9 MG/DL (7-18); CALCIUM LEVEL 9.2 MG/DL (8.5-10.1); CARBON DIOXIDE LEVEL 27 MEQ/L (21-32); CHLORIDE LEVEL 106 MEQ/L (98-107); CK-MB VALUE MASS < 1.0 NG/ML (<3.6); CPK CREATINE PHOSPHOKINASE 64 U/L (39-308); CREATININE FOR GFR 0.98 MG/DL (0.70-1.30); GLOMERULAR FILTRATION RATE > 60.0 (>56); GLUCOSE, FASTING 104 MG/DL (70-100); MB/CK RELATIVE INDEX 1.56 (< OR =4); NT-PRO BNP 218 PG/ML (<125); POTASSIUM SERUM 3.7 MEQ/L (3.5-5.1); SODIUM LEVEL 143 MEQ/L (136-145); TOTAL PROTEIN 7.7 GM/DL (6.4-8.2); TROPONIN I < 0.02 NG/ML (< 0.10)
[2020-12-15 13:58] LABS: RSV AMPLIFICATION NEGATIVE (NEGATIVE)
[2020-12-15] MEDS ORDERED: ISOVUE-370 76% 100ML VIAL As Ordered ONE (14:08)
[2020-12-15] MEDS ORDERED: PIPERACILLIN/TAZOBACTAM SOD 3.375 GM in D5W MINI-BAG PLUS 50 ML IV ONE (14:15)
--- NOTE | 2020-12-15 15:03 | REP ---
INDICATION: shortness of breath, cancer, effusion. COMPARISON: 11/21/2020. TECHNIQUE: CT angiogram chest performed following the intravenous administration of 100 cc of Isovue 370. Sagittal and coronal reconstruction images are performed. FINDINGS: There is no evidence of pulmonary embolism. Once again there is a fluid collection involving the right lower lobe measuring about 7.6 x 6.0 cm. This appears unchanged in size. There is surrounding consolidative opacity as seen on prior study. There is a new loculated right pleural fluid collection which is fairly extensive none extends into the superior and inferior hemithorax. This may represent an empyema. There is increased right upper lobe consolidative opacity. A peripheral right upper lobe nodule is unchanged. There is mild increase in size of a right cardiophrenic lymph node. An enlarged lymph node binder right clavicle has increased in size to a mild extent. Right superior mediastinal adenopathy is essentially unchanged. Precarinal adenopathy has mildly increased. There is increased posterior mediastinal adenopathy on the left below level of the dilip. This is fairly bulky and appears to cause some degree of esophageal obstruction with proximal dilatation of an air-filled esophagus. There is mild pericardial fluid diffusely. There is no thoracic aortic aneurysm or dissection. The heart is upper limits of normal in size. In the upper abdomen a 2.7 cm lymph node seen adjacent to the caudate lobe of the liver.. IMPRESSION: No CT evidence of pulmonary embolism. Fluid collection in the right lower lobe, unchanged in size when compared to the prior study. New loculated right pleural fluid collection is quite extensive and could represent empyema. Extensive right lower lobe consolidative opacity surrounding the fluid collection. Increased right upper lobe consolidative opacity. Increased size of mediastinal adenopathy as discussed above. Proximal esophagus is moderately dilated, therefore I suspect some degree of esophageal obstruction by the posterior mediastinal adenopathy. <Electronically signed by Nasir Villalobos > 12/15/20 1500
[2020-12-15] MEDS ORDERED: GLUCAGON INJ 1MG VIAL SC PRN (15:45)
[2020-12-15] MEDS ORDERED: DEXTROSE 50% 50 ML SYRINGE IV PRN (15:45)
[2020-12-15] MEDS ORDERED: GLUCOSE 4GM CHEW TABLET PO PRN (15:45)
[2020-12-15] MEDS ORDERED: ACETAMINOPHEN TAB 650MG DOSE (2X325MG) PO PRN (15:45)
[2020-12-15] MEDS ORDERED: CVS10CAP8 PO (15:52)
[2020-12-15] MEDS ORDERED: ZOLO100T PO (15:53)
[2020-12-15] MEDS ORDERED: D31000TA2 PO (15:53)
--- OUTSIDE RECORDS SUMMARY | 2020-12-15 15:55 | CCD ---
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 (applies to non-numeric resul ts) [facility] Bilirubin,Total 0.1-1.9 Normal (applies to non-numeric results) [facility] SGOT(AST) 23 U/L 15-37 Normal (applies to non-numeric resul ts) [facility] Note the following drug interference: Sulfasalazine Sulfapyridine Can see falsely depressed Can see falsely elevated result with up to 10% results with up to 10% decrease in measurement increase in measurement Recommend patients be collected for this test prior to administration of either drug. SGPT(ALT) 74 U/L 12-78 Normal (applies to non-numeric resul ts) [facility] Note the following drug interference: Sulfasalazine Sulfapyridine Can see falsely depressed Can see falsely elevated result with up to 29% results with up to 10% decrease in measurement increase in measurement Recommend patients be collected for this test prior to administration of either drug. Alkaline Phosphatase 64 U/L 38-126 Normal (applies to non-num martha results) [facility] can increase Alkaline Phosp le vels up to 2 times the normal adult value. Normal values for children and adolescents are 2 to 3 times the normal adult value. Total Protein 6.0-8.2 Normal (applies to non-numeric re sults) [facility] Albumin Level 3.4-5.0 Normal (applies to non-numeric re sults) [facility] ID Date Data Source [id number] 06/16/2020 03:28:00 PM EDT [facility] Name Value Range Interpretation Code Description Data Keysha rce(s) Supporting Document(s) Sodium 141 mmol/L 136-145 Normal (applies to non-numeric resul ts) [facility] Potassium 3.5-5.1 Normal (applies to non-numeric resul ts) [facility] Chloride 105 mmol/L 98-107 Normal (applies to non-numeric resul ts) [facility] Carbon Dioxide CO2 21-32 Normal (applies to non-numer ic results) [facility] Anion Gap 5.0-16.0 Normal (applies to non-numeric resul ts) [facility] BUN 10 mg/dL 7-18 Normal (applies to non-numeric results) [facility] Creatinine,Serum 0.8-1.5 Normal (applies to non-numeric results) [facility] GFR >60 Normal (applies to non-numeric results) [facility] Glucose Level 158 mg/dL 60-99 Above high normal [facility] Reference range is only applicable when patient is fasting Note the following drug interference: Sulfasalazine Sulfapyridine Can see falsely depressed Can see falsely elevated result with up to 17% results with up to 11% decrease in measurement increase in measurement Recommend patients be collected for this test prior to administration of either drug. Calcium 8.5-10.1 Normal (applies to non-numeric resul ts) [facility] Bilirubin,Total 0.1-1.9 Normal (applies to non-numeric results) [facility] SGOT(AST) 25 U/L 15-37 Normal (applies to non-numeric resul ts) [facility] Note the following drug interference: Sulfasalazine Sulfapyridine Can see falsely depressed Can see falsely elevated result with up to 10% results with up to 10% decrease in measurement increase in measurement Recommend patients be collected for this test prior to administration of either drug. SGPT(ALT) 74 U/L 12-78 Normal (applies to non-numeric resul ts) [facility] Note the following drug interference: Sulfasalazine Sulfapyridine Can see falsely depressed Can see falsely elevated result with up to 29% results with up to 10% decrease in measurement increase in measurement Recommend patients be collected for this test prior to administration of either drug. Alkaline Phosphatase 62 U/L 38-126 Normal (applies to non-num martha results) [facility] can increase Alkaline Phosp le vels up to 2 times the normal adult value. Normal values for children and adolescents are 2 to 3 times the normal adult value. Total Protein 6.0-8.2 Normal (applies to non-numeric re sults) [facility] Albumin Level 3.4-5.0 Normal (applies to non-numeric re sults) [facility] ID Date Data Source [id number] 06/16/2020 03:28:00 PM EDT [facility] Name Value Range Interpretation Code Description Data Keysha rce(s) Supporting Document(s) Thyroid Stimulate Hormone TSH 0.358-3.74 No rmal (applies to non-numeric results) [facility] ID Date Data Source [id number] 06/16/2020 03:28:00 PM EDT [facility] Name Value Range Interpretation Code Description Data Keysha rce(s) Supporting Document(s) Free T4 (Free Thyroxine) 0.76-1.46 Normal (applies to non -numeric results) [facility] ID Date Data Source [id number] 06/16/2020 02:32:00 PM EDT [facility] Name Value Range Interpretation Code Description Data Keysha rce(s) Supporting Document(s) White Blood Count 3.5-10.5 Normal (applies to non-numeri c results) [facility] Red Blood Count 4.30-5.70 Below low normal [facility] Hemoglobin 13.5-17.5 Below low normal [facility] Hematocrit 38.8-50.0 Below low normal [facility] Mean Corpuscular Volume 81.2-95.1 Normal (applies to non- numeric results) [facility] Mean Corpuscular Hgb 25.6-32.2 Normal (applies to non-num martha results) [facility] Mean Corpuscular Hgb Conc 32.0-36.0 Normal (applies to no n-numeric results) [facility] Red Cell Distribution Width 11.8-15.6 Normal (appli es to non-numeric results) [facility] Platelet Count 268 x10 3/uL 150-450 Normal (applies to non-numeric results) [facility] Mean Platelet Volume 9.4-12.4 Below low normal [facility] Neutrophils% (Auto) 31.0-71.0 Normal (applies to non-nume tita results) [facility] Lymphocytes% (Auto) 20.0-55.0 Normal (applies to non-nume tita results) [facility] Monocytes% (Auto) 4.0-12.0 Normal (applies to non-numeri c results) [facility] Eosinophils% (Auto) 1.0-8.0 Above high normal [facility] Basophils% (Auto) 0.0-2.0 Normal (applies to non-numeri c results) [facility] Immature Granulocytes% (Auto) 0.0-2.0 Normal (raquel lies to non-numeric results) [facility] Neutrophils# (Auto) 1.50-6.20 Normal (applies to non-nume tita results) [facility] Lymphocytes# (Auto) 1.20-4.00 Normal (applies to non-nume tita results) [facility] Monocytes# (Auto) 0.00-0.90 Normal (applies to non-numeri c results) [facility] Eosinophils# (Auto) 0.00-0.50 Above high normal [facility] Basophils# (Auto) 0.00-0.20 Normal (applies to non-numeri c results) [facility] Immature Granulocytes# (Auto) 0.00-7.00 No rmal (applies to non-numeric results) [facility] Slide Reviewed By Normal (applies to non-numeri c results) [facility] Slide has been reviewed and findings con firmed by a technologist/correctional maintenance technician. ID Date Data Source [id number] 05/27/2020 11:00:00 AM EDT [facility] Name Value Range Interpretation Code Description Data Keysha rce(s) Supporting Document(s) Sodium 139 mmol/L 136-145 Normal (applies to non-numeric resul ts) [facility] Potassium 3.5-5.1 Normal (applies to non-numeric resul ts) [facility] Chloride 102 mmol/L 98-107 Normal (applies to non-numeric resul ts) [facility] Carbon Dioxide CO2 21-32 Normal (applies to non-numer ic results) [facility] Anion Gap 5.0-16.0 Normal (applies to non-numeric resul ts) [facility] BUN 9 mg/dL 7-18 Normal (applies to non-numeric results) [facility] Creatinine,Serum 0.8-1.5 Normal (applies to non-numeric results) [facility] GFR >60 Normal (applies to non-numeric results) [facility] Glucose Level 155 mg/dL 60-99 Above high normal [facility] Reference range is only applicable when patient is fasting Note the following drug interference: Sulfasalazine Sulfapyridine Can see falsely depressed Can see falsely elevated result with up to 17% results with up to 11% decrease in measurement increase in measurement Recommend patients be collected for this test prior to administration of either drug. Calcium 8.5-10.1 Normal (applies to non-numeric resul ts) [facility] Bilirubin,Total 0.1-1.9 Normal (applies to non-numeric results) [facility] SGOT(AST) 20 U/L 15-37 Normal (applies to non-numeric resul ts) [facility] Note the following drug interference: Sulfasalazine Sulfapyridine Can see falsely depressed Can see falsely elevated result with up to 10% results with up to 10% decrease in measurement increase in measurement Recommend patients be collected for this test prior to administration of either drug. SGPT(ALT) 70 U/L 12-78 Normal (applies to non-numeric resul ts) [facility] Note the following drug interference: Sulfasalazine Sulfapyridine Can see falsely depressed Can see falsely elevated result with up to 29% results with up to 10% decrease in measurement increase in measurement Recommend patients be collected for this test prior to administration of either drug. Alkaline Phosphatase 66 U/L 38-126 Normal (applies to non-num martha results) [facility] can increase Alkaline Phosp le vels up to 2 times the normal adult value. Normal values for children and adolescents are 2 to 3 times the normal adult value. Total Protein 6.0-8.2 Normal (applies to non-numeric re sults) [facility] Albumin Level 3.4-5.0 Normal (applies to non-numeric re sults) [facility] ID Date Data Source [id number] 05/27/2020 11:00:00 AM EDT [facility] Name Value Range Interpretation Code Description Data Keysha rce(s) Supporting Document(s) Thyroid Stimulate Hormone TSH 0.358-3.74 No rmal (applies to non-numeric results) [facility] ID Date Data Source [id number] 05/27/2020 11:00:00 AM EDT [facility] Name Value Range Interpretation Code Description Data Keysha rce(s) Supporting Document(s) Free T4 (Free Thyroxine) 0.76-1.46 Normal (applies to non -numeric results) [facility] ID Date Data Source [id number] 05/27/2020 10:30:00 AM EDT [facility] Name Value Range Interpretation Code Description Data Keysha rce(s) Supporting Document(s) White Blood Count 3.5-10.5 Normal (applies to non-numeri c results) [facility] Red Blood Count 4.30-5.70 Below low normal [facility] Hemoglobin 13.5-17.5 Below low normal [facility] Hematocrit 38.8-50.0 Normal (applies to non-numeric resul ts) [facility] Mean Corpuscular Volume 81.2-95.1 Normal (applies to non- numeric results) [facility] Mean Corpuscular Hgb 25.6-32.2 Normal (applies to non-num martha results) [facility] Mean Corpuscular Hgb Conc 32.0-36.0 Normal (applies to no n-numeric results) [facility] Red Cell Distribution Width 11.8-15.6 Normal (appli es to non-numeric results) [facility] Platelet Count 246 x10 3/uL 150-450 Normal (applies to non-numeric results) [facility] Mean Platelet Volume 9.4-12.4 Below low normal [facility] Neutrophils% (Auto) 31.0-71.0 Normal (applies to non-nume tita results) [facility] Lymphocytes% (Auto) 20.0-55.0 Normal (applies to non-nume tita results) [facility] Monocytes% (Auto) 4.0-12.0 Normal (applies to non-numeri c results) [facility] Eosinophils% (Auto) 1.0-8.0 Above high normal [facility] Basophils% (Auto) 0.0-2.0 Normal (applies to non-numeri c results) [facility] Immature Granulocytes% (Auto) 0.0-2.0 Normal (raquel lies to non-numeric results) [facility] Neutrophils# (Auto) 1.50-6.20 Normal (applies to non-nume tita results) [facility] Lymphocytes# (Auto) 1.20-4.00 Normal (applies to non-nume tita results) [facility] Monocytes# (Auto) 0.00-0.90 Normal (applies to non-numeri c results) [facility] Eosinophils# (Auto) 0.00-0.50 Above high normal [facility] Basophils# (Auto) 0.00-0.20 Normal (applies to non-numeri c results) [facility] Immature Granulocytes# (Auto) 0.00-7.00 No rmal (applies to non-numeric results) [facility] ID Date Data Source [id number] 05/06/2020 05:40:00 PM EDT [facility] Name Value Range Interpretation Code Description Data Keysha rce(s) Supporting Document(s) [facility] Urine Creatinine result Normal (applies t o non-numeric results) [facility] Interpret with care as there is no estab lished reference range associated with this assay's methodology that pertains to this particular sex and/or age. [facility] Microalbumin,Ur result <1.7 [facility] Alb/Cre Ratio,Ur result Normal (applies t o non-numeric results) [facility] Test Performed By: [facility] [address] [place] [address] Director: Gino Hoyt MD Reference Ranges for Microalbumin,spot: Normal <30 ug/mg creatinine Microalbuminuria 30-300 ug/mg creatinine Clinical Albuminuria >300 ug/mg creatinine ID Date Data Source [id number] 05/06/2020 05:16:00 PM EDT [facility] Name Value Range Interpretation Code Description Data Keysha rce(s) Supporting Document(s) Creatinine,Urine Normal (applies to non-numeric results) [facility] Interpret with care as there is no estab lished reference range associated with this assay's methodology that pertains to this particular sex and/or age. Microalbumin,Urine <1.7 Above high normal [facility] Albumin/Creatinine Ratio,Urine Normal (applies to non-numeric results) [facility] Test Performed By: [facility] [address] [place] [address] Director: Gino Hoyt MD Reference Ranges for Microalbumin,spot: Normal <30 ug/mg creatinine Microalbuminuria 30-300 ug/mg creatinine Clinical Albuminuria >300 ug/mg creatinine ID Date Data Source [id number] 05/06/2020 12:45:00 PM T [facility] Name Value Range Interpretation Code Description Data Keysha rce(s) Supporting Document(s) Vitamin D, Total 30.0-100.0 Below low normal [facility] ID Date Data Source [id number] 05/06/2020 12:14:00 PM [facility] Name Value Range Interpretation Code Description Data [facility] rce(s) Supporting Document(s) Color,Urine Colorl-Dk Y Normal (applies to non-numeric res ults) [facility] Clarity,Urine Clear Normal (applies to non-numeric re sults) [facility] Specific [place],Urine 1.005-1.030 Normal (applies to non- numeric results) [facility] pH,Urine 5.0-8.0 Normal (applies to non-numeric resul ts) [facility] Protein,Urine Negative [facility] Glucose,Urine Negative [facility] Ketones,Urine Negative [facility] Blood,Urine Negative Normal (applies to non-numeric resu lts) [facility] Bilirubin,Urine Negative Normal (applies to non-numeric results) [facility] Urobilinogen,Urine 0.2-1.0 Normal (applies to non-numer ic results) [facility] Leukocyte Esterase,Urine Negative Normal (applies to non -numeric results) [facility] Nitrite,Urine Negative Normal (applies to non-numeric re sults) [facility] RBC,Urine None Seen Normal (applies to non-numeric resul ts) [facility] WBC,Urine None Seen Normal (applies to non-numeric resul ts) [facility] Casts,Urine None Seen Normal (applies to non-numeric resu lts) [facility] Squamous Cells,Urine None Seen [facility] Amorphous Sediment,Urine None Seen [facility] Bacteria,Urine None Seen [facility] ital Mucus,Urine [facility] ID Date Data Source [id number] 05/06/2020 12:09:00 PM EDT [facility] Name Value Range Interpretation Code Description Data Keysha rce(s) Supporting Document(s) Sodium 140 mmol/L 136-145 Normal (applies to non-numeric resul ts) [facility] Potassium 3.5-5.1 Normal (applies to non-numeric resul ts) [facility] Chloride 104 mmol/L 98-107 Normal (applies to non-numeric resul ts) [facility] Carbon Dioxide CO2 21-32 Normal (applies to non-numer ic results) [facility] Anion Gap 5.0-16.0 Normal (applies to non-numeric resul ts) [facility] BUN 7 mg/dL 7-18 Normal (applies to non-numeric results) [facility] Creatinine,Serum 0.8-1.5 Normal (applies to non-numeric results) [facility] GFR >60 Normal (applies to non-numeric results) [facility] Glucose Level 202 mg/dL 60-99 Above high normal [facility] Reference range is only applicable when patient is fasting Note the following drug interference: Sulfasalazine Sulfapyridine Can see falsely depressed Can see falsely elevated result with up to 17% results with up to 11% decrease in measurement increase in measurement Recommend patients be collected for this test prior to administration of either drug. Calcium 8.5-10.1 Normal (applies to non-numeric resul ts) [facility] Bilirubin,Total 0.1-1.9 Normal (applies to non-numeric results) [facility] SGOT(AST) 23 U/L 15-37 Normal (applies to non-numeric resul ts) [facility] Note the following drug interference: Sulfasalazine Sulfapyridine Can see falsely depressed Can see falsely elevated result with up to 10% results with up to 10% decrease in measurement increase in measurement Recommend patients be collected for this test prior to administration of either drug. SGPT(ALT) 82 U/L 12-78 Above high normal [facility] Note the following drug interference: Sulfasalazine Sulfapyridine Can see falsely depressed Can see falsely elevated result with up to 29% results with up to 10% decrease in measurement increase in measurement Recommend patients be collected for this test prior to administration of either drug. Alkaline Phosphatase 62 U/L 38-126 Normal (applies to non-num martha results) [facility] can increase Alkaline Phosp le vels up to 2 times the normal adult value. Normal values for children and adolescents are 2 to 3 times the normal adult value. Total Protein 6.0-8.2 Normal (applies to non-numeric re sults) [facility] Albumin Level 3.4-5.0 Normal (applies to non-numeric re sults) [facility] ID Date Data Source [id number] 05/06/2020 12:09:00 PM EDT [facility] Name Value Range Interpretation Code Description Data Keysha rce(s) Supporting Document(s) Thyroid Stimulate Hormone TSH 0.358-3.74 No rmal (applies to non-numeric results) [facility] ID Date Data Source [id number] 05/06/2020 12:09:00 PM EDT [facility] Name Value Range Interpretation Code Description Data Keysha rce(s) Supporting Document(s) Free T4 (Free Thyroxine) 0.76-1.46 Normal (applies to non -numeric results) [facility] ID Date Data Source [id number] 05/06/2020 12:08:00 PM EDT [facility] Name Value Range Interpretation Code Description Data Keysha rce(s) Supporting Document(s) Triglycerides 76 mg/dL <150 Normal (applies to non-numeric re sults) [facility] Cholesterol 153 mg/dL 100-200 Normal (applies to non-numeric resu lts) [facility] LDL Cholesterol Calculated 95 0-130 Normal (applies to n on-numeric results) [facility] HDL Cholesterol 43 mg/dL 40-60 Normal (applies to non-numeric results) [facility] Cholesterol/HDL Ratio 3.6-6.7 Normal (applies to non-nu meric results) [facility] ID Date Data Source [id number] 05/06/2020 11:38:00 AM EDT [facility] Name Value Range Interpretation Code Description Data Keysha rce(s) Supporting Document(s) White Blood Count 3.5-10.5 Normal (applies to non-numeri c results) [facility] Red Blood Count 4.30-5.70 Below low normal [facility] Hemoglobin 13.5-17.5 Below low normal [facility] Hematocrit 38.8-50.0 Below low normal [facility] Mean Corpuscular Volume 81.2-95.1 Normal (applies to non- numeric results) [facility] Mean Corpuscular Hgb 25.6-32.2 Normal (applies to non-num martha results) [facility] Mean Corpuscular Hgb Conc 32.0-36.0 Normal (applies to no n-numeric results) [facility] Red Cell Distribution Width 11.8-15.6 Below low normal [facility] Platelet Count 263 x10 3/uL 150-450 Normal (applies to non-numeric results) [facility] Mean Platelet Volume 9.4-12.4 Below low normal [facility] Neutrophils% (Auto) 31.0-71.0 Normal (applies to non-nume tita results) [facility] Lymphocytes% (Auto) 20.0-55.[address] [facility] Monocytes% (Auto) 4.0-12.0 Normal (applies to non-numeri c results) [facility] Eosinophils% (Auto) 1.0-8.0 Normal (applies to non-nume tita results) [facility] Basophils% (Auto) 0.0-2.0 Normal (applies to non-numeri c results) [facility] Immature Granulocytes% (Auto) 0.0-2.0 Normal (raquel lies to non-numeric results) [facility] Neutrophils# (Auto) 1.50-6.20 Normal (applies to non-nume tita results) [facility] Lymphocytes# (Auto) 1.20-4.[address] [facility] Monocytes# (Auto) 0.00-0.90 Normal (applies to non-numeri c results) [facility] Eosinophils# (Auto) 0.00-0.50 Normal (applies to non-nume tita results) [facility] Basophils# (Auto) 0.00-0.20 Normal (applies to non-numeri c results) [facility] Immature Granulocytes# (Auto) 0.00-7.00 No rmal (applies to non-numeric results) [facility] ID Date Data Source [id number] 03/21/2020 10:51:00 AM EDT [facility] Name Value Range Interpretation Code Description Data Keysha rce(s) Supporting Document(s) Sodium 135 mmol/L 136-145 Below low normal [facility] Potassium 3.5-5.1 Normal (applies to non-numeric resul ts) [facility] Chloride 100 mmol/L 98-107 Normal (applies to non-numeric resul ts) [facility] Carbon Dioxide CO2 21-32 Normal (applies to non-numer ic results) [facility] Anion Gap 5.0-16.0 Normal (applies to non-numeric resul ts) [facility] BUN 10 mg/dL 7-18 Normal (applies to non-numeric results) [facility] Creatinine,Serum 0.8-1.5 Normal (applies to non-numeric results) [facility] GFR >60 Normal (applies to non-numeric results) [facility] Glucose Level 233 mg/dL 60-99 Above high normal [facility] Reference range is only applicable when patient is fasting Note the following drug interference: Sulfasalazine Sulfapyridine Can see falsely depressed Can see falsely elevated result with up to 17% results with up to 11% decrease in measurement increase in measurement Recommend patients be collected for this test prior to administration of either drug. Calcium 8.5-10.1 Normal (applies to non-numeric resul ts) [facility] Bilirubin,Total 0.1-1.9 Normal (applies to non-numeric results) [facility] SGOT(AST) 30 U/L 15-37 Normal (applies to non-numeric resul ts) [facility] Note the following drug interference: Sulfasalazine Sulfapyridine Can see falsely depressed Can see falsely elevated result with up to 10% results with up to 10% decrease in measurement increase in measurement Recommend patients be collected for this test prior to administration of either drug. SGPT(ALT) 73 U/L 12-78 Normal (applies to non-numeric resul ts) [facility] Note the following drug interference: Sulfasalazine Sulfapyridine Can see falsely depressed Can see falsely elevated result with up to 29% results with up to 10% decrease in measurement increase in measurement Recommend patients be collected for this test prior to administration of either drug. Alkaline Phosphatase 78 U/L 38-126 Normal (applies to non-num martha results) [facility] can increase Alkaline Phosp le vels up to 2 times the normal adult value. Normal values for children and adolescents are 2 to 3 times the normal adult value. Total Protein 6.0-8.2 Normal (applies to non-numeric re sults) [facility] Albumin Level 3.4-5.0 Normal (applies to non-numeric re sults) [facility] ID Date Data Source [id number] 03/21/2020 10:51:00 AM EDT [facility] Name Value Range Interpretation Code Description Data Keysha rce(s) Supporting Document(s) Thyroid Stimulate Hormone TSH 0.358-3.74 No rmal (applies to non-numeric results) [facility] ID Date Data Source [id number] 03/21/2020 10:51:00 AM EDT [facility] Name Value Range Interpretation Code Description Data Keysha rce(s) Supporting Document(s) Free T4 (Free Thyroxine) 0.76-1.46 Normal (applies to non -numeric results) [facility] ID Date Data Source [id number] 03/21/2020 10:23:00 AM EDT [facility] Name Value Range Interpretation Code Description Data Keysha rce(s) Supporting Document(s) White Blood Count 3.5-10.5 Normal (applies to non-numeri c results) [facility] Red Blood Count 4.30-5.70 Normal (applies to non-numeric results) [facility] Hemoglobin 13.5-17.5 Normal (applies to non-numeric resul ts) [facility] Hematocrit 38.8-50.0 Normal (applies to non-numeric resul ts) [facility] Mean Corpuscular Volume 81.2-95.1 Normal (applies to non- numeric results) [facility] Mean Corpuscular Hgb 25.6-32.2 Normal (applies to non-num martha results) [facility] Mean Corpuscular Hgb Conc 32.0-36.0 Normal (applies to no n-numeric results) [facility] Red Cell Distribution Width 11.8-15.6 Below low normal [facility] Platelet Count 285 x10 3/uL 150-450 Normal (applies to non-numeric results) [facility] Mean Platelet Volume 9.4-12.4 Below low normal [facility] Neutrophils% (Auto) 31.0-71.0 Normal (applies to non-nume tita results) [facility] Lymphocytes% (Auto) 20.0-55.0 Normal (applies to non-nume tita results) [facility] Monocytes% (Auto) 4.0-12.0 Normal (applies to non-numeri c results) [facility] Eosinophils% (Auto) 1.0-8.0 Normal (applies to non-nume tita results) [facility] Basophils% (Auto) 0.0-2.0 Normal (applies to non-numeri c results) [facility] Immature Granulocytes% (Auto) 0.0-2.0 Normal (raquel lies to non-numeric results) [facility] Neutrophils# (Auto) 1.50-6.20 Normal (applies to non-nume tita results) [facility] Lymphocytes# (Auto) 1.20-4.00 Above high normal [facility] Monocytes# (Auto) 0.00-0.90 Normal (applies to non-numeri c results) [facility] Eosinophils# (Auto) 0.00-0.50 Above high normal [facility] Basophils# (Auto) 0.00-0.20 Normal (applies to non-numeri c results) [facility] Immature Granulocytes# (Auto) 0.00-7.00 No rmal (applies to non-numeric results) [facility] ID Date Data Source [id number] 02/22/2020 11:13:00 AM EDT [facility] Name Value Range Interpretation Code Description Data Keysha rce(s) Supporting Document(s) Sodium 139 mmol/L 136-145 Normal (applies to non-numeric resul ts) [facility] Potassium 3.5-5.1 Normal (applies to non-numeric resul ts) [facility] Chloride 101 mmol/L 98-107 Normal (applies to non-numeric resul ts) [facility] Carbon Dioxide CO2 21-32 Normal (applies to non-numer ic results) [facility] Anion Gap 5.0-16.0 Normal (applies to non-numeric resul ts) [facility] BUN 12 mg/dL 7-18 Normal (applies to non-numeric results) [facility] Creatinine,Serum 0.8-1.5 Normal (applies to non-numeric results) [facility] GFR >60 Normal (applies to non-numeric results) [facility] Glucose Level 227 mg/dL 60-99 Above high normal [facility] Reference range is only applicable when patient is fasting Note the following drug interference: Sulfasalazine Sulfapyridine Can see falsely depressed Can see falsely elevated result with up to 17% results with up to 11% decrease in measurement increase in measurement Recommend patients be collected for this test prior to administration of either drug. Calcium 8.5-10.1 Normal (applies to non-numeric resul ts) [facility] Bilirubin,Total 0.1-1.9 Normal (applies to non-numeric results) [facility] SGOT(AST) 23 U/L 15-37 Normal (applies to non-numeric resul ts) [facility] Note the following drug interference: Sulfasalazine Sulfapyridine Can see falsely depressed Can see falsely elevated result with up to 10% results with up to 10% decrease in measurement increase in measurement Recommend patients be collected for this test prior to administration of either drug. SGPT(ALT) 88 U/L 12-78 Above high normal [facility] Note the following drug interference: Sulfasalazine Sulfapyridine Can see falsely depressed Can see falsely elevated result with up to 29% results with up to 10% decrease in measurement increase in measurement Recommend patients be collected for this test prior to administration of either drug. Alkaline Phosphatase 67 U/L 38-126 Normal (applies to non-num martha results) [facility] can increase Alkaline Phosp le vels up to 2 times the normal adult value. Normal values for children and adolescents are 2 to 3 times the normal adult value. Total Protein 6.0-8.2 Normal (applies to non-numeric re sults) [facility] Albumin Level 3.4-5.0 Normal (applies to non-numeric re sults) [facility] ID Date Data Source [id number] 02/22/2020 11:13:00 AM EDT [facility] Name Value Range Interpretation Code Description Data Keysha rce(s) Supporting Document(s) Thyroid Stimulate Hormone TSH 0.358-3.74 No rmal (applies to non-numeric results) [facility] ID Date Data Source [id number] 02/22/2020 11:13:00 AM EDT [facility] Name Value Range Interpretation Code Description Data Keysha rce(s) Supporting Document(s) Free T4 (Free Thyroxine) 0.76-1.46 Normal (applies to non -numeric results) [facility] ID Date Data Source [id number] 02/22/2020 10:17:00 AM EDT [facility] Name Value Range Interpretation Code [facility] White Blood Count 3.5-10.5 Normal (applies to non-numeri c results) [facility] Red Blood Count 4.30-5.70 Below low normal [facility] Hemoglobin 13.5-17.5 Below low normal [facility] Hematocrit 38.8-50.0 Normal (applies to non-numeric resul ts) [facility] Mean Corpuscular Volume 81.2-95.1 Normal (applies to non- numeric results) [facility] Mean Corpuscular Hgb 25.6-32.2 Normal (applies to non-num martha results) [facility] Mean Corpuscular Hgb Conc 32.0-36.0 Normal (applies to no n-numeric results) [facility] Red Cell Distribution Width 11.8-15.6 Normal (appli es to non-numeric results) [facility] Platelet Count 237 x10 3/uL 150-450 Normal (applies to non-numeric results) [facility] Mean Platelet Volume 9.4-12.4 Below low normal [facility] Neutrophils% (Auto) 31.0-71.0 Normal (applies to non-nume tita results) [facility] Lymphocytes% (Auto) 20.0-55.0 Normal (applies to non-nume tita results) [facility] Monocytes% (Auto) 4.0-12.0 Normal (applies to non-numeri c results) [facility] Eosinophils% (Auto) 1.0-8.0 Normal (applies to non-nume tita results) [facility] Basophils% (Auto) 0.0-2.0 Normal (applies to non-numeri c results) [facility] Immature Granulocytes% (Auto) 0.0-2.0 Normal (raquel lies to non-numeric results) [facility] Neutrophils# (Auto) 1.50-6.20 Normal (applies to non-nume ttia results) [facility] Lymphocytes# (Auto) 1.20-4.00 Normal (applies to non-nume tita results) [facility] Monocytes# (Auto) 0.00-0.90 Normal (applies to non-numeri c results) [facility] Eosinophils# (Auto) 0.00-0.50 Normal (applies to non-nume tita results) [facility] Basophils# (Auto) 0.00-0.20 Normal (applies to non-numeri c results) [facility] Immature Granulocytes# (Auto) 0.00-7.00 No rmal (applies to non-numeric results) [facility] ID Date Data Source [id number] 02/01/2020 09:18:00 PM EDT [facility] Name Value Range Interpretation Code Description Data Keysha rce(s) Supporting Document(s) CEA result 0.2-5.0 Normal (applies to non-numeric resul ts) [facility] % Distribution of CEA 0 - 2.5 [...] be used interchangeably. ID Date Data Source [id number] 02/01/2020 08:14:00 PM EDT [facility] Name Value Range Interpretation Code Description Data Keysha rce(s) Supporting Document(s) CEA 0.2-5.0 Normal (applies to non-numeric results) [facility] % Distribution of CEA 0 - [...] be used interchangeably. ID Date Data Source [id number] 02/01/2020 10:55:00 AM EDT [facility] Name Value Range Interpretation Code Description Data Keysha rce(s) Supporting Document(s) Sodium 138 mmol/L 136-145 Normal (applies to non-numeric resul ts) [facility] Potassium 3.5-5.1 Normal (applies to non-numeric resul ts) [facility] Chloride 102 mmol/L 98-107 Normal (applies to non-numeric resul ts) [facility] Carbon Dioxide CO2 21-32 Normal (applies to non-numer ic results) [facility] Anion Gap 5.0-16.0 Normal (applies to non-numeric resul ts) [facility] BUN 9 mg/dL 7-18 Normal (applies to non-numeric results) [facility] Creatinine,Serum 0.8-1.5 Normal (applies to non-numeric results) [facility] GFR >60 Normal (applies to non-numeric results) [facility] Glucose Level 159 mg/dL 60-99 Above high normal [facility] Reference range is only applicable when patient is fasting Note the following drug interference: Sulfasalazine Sulfapyridine Can see falsely depressed Can see falsely elevated result with up to 17% results with up to 11% decrease in measurement increase in measurement Recommend patients be collected for this test prior to administration of either drug. Calcium 8.5-10.1 Normal (applies to non-numeric resul ts) [facility] Bilirubin,Total 0.1-1.9 Normal (applies to non-numeric results) [facility] SGOT(AST) 21 U/L 15-37 Normal (applies to non-numeric resul ts) [facility] Note the following drug interference: Sulfasalazine Sulfapyridine Can see falsely depressed Can see falsely elevated result with up to 10% results with up to 10% decrease in measurement increase in measurement Recommend patients be collected for this test prior to administration of either drug. SGPT(ALT) 67 U/L 12-78 Normal (applies to non-numeric resul ts) [facility] Note the following drug interference: Sulfasalazine Sulfapyridine Can see falsely depressed Can see falsely elevated result with up to 29% results with up to 10% decrease in measurement increase in measurement Recommend patients be collected for this test prior to administration of either drug. Alkaline Phosphatase 68 U/L 38-126 Normal (applies to non-num martha results) [facility] can increase Alkaline Phosp le vels up to 2 times the normal adult value. Normal values for children and adolescents are 2 to 3 times the normal adult value. Total Protein 6.0-8.2 Normal (applies to non-numeric re sults) [facility] Albumin Level 3.4-5.0 Normal (applies to non-numeric re sults) [facility] ID Date Data Source [id number] 02/01/2020 10:55:00 AM T [facility] Name Value Range Interpretation Code Description Data Keysha rce(s) Supporting Document(s) Thyroid Stimulate Hormone TSH 0.358-3.74 No rmal (applies to non-numeric results) [facility] ID Date Data Source [id number] 02/01/2020 10:55:00 AM EDT [facility] Name Value Range Interpretation Code Description Data Keysha rce(s) Supporting Document(s) Free T4 (Free Thyroxine) 0.76-1.46 Normal (applies to non -numeric results) [facility] ID Date Data Source [id number] 02/01/2020 10:13:00 AM [facility] Name Value Range Interpretation Code Description Data Keysha rce(s) Supporting Document(s) White Blood Count 3.5-10.5 Normal (applies to non-numeri c results) [facility] Red Blood Count 4.30-5.70 Below low normal [facility] Hemoglobin 13.5-17.5 Below low normal [facility] Hematocrit 38.8-50.0 Below low normal [facility] Mean Corpuscular Volume 81.2-95.1 Above high normal [facility] Mean Corpuscular Hgb 25.6-32.2 Normal (applies to non-num martha results) [facility] Mean Corpuscular Hgb Conc 32.0-36.0 Normal (applies to no n-numeric results) [facility] Red Cell Distribution Width 11.8-15.6 Normal (appli es to non-numeric results) [facility] Platelet Count 224 x10 3/uL 150-450 Normal (applies to non-numeric results) [facility] Mean Platelet Volume 9.4-12.4 Below low normal [facility] Neutrophils% (Auto) 31.0-71.0 Normal (applies to non-nume tita results) [facility] Lymphocytes% (Auto) 20.0-55.0 Normal (applies to non-nume tita results) [facility] Monocytes% (Auto) 4.0-12.0 Normal (applies to non-numeri c results) [facility] Eosinophils% (Auto) 1.0-8.0 Normal (applies to non-nume tita results) [facility] Basophils% (Auto) 0.0-2.0 Normal (applies to non-numeri c results) [facility] Immature Granulocytes% (Auto) 0.0-2.0 Normal (raquel lies to non-numeric results) [facility] Neutrophils# (Auto) 1.50-6.20 Normal (applies to non-nume tita results) [facility] Lymphocytes# (Auto) 1.20-4.00 Normal (applies to non-nume tita results) [facility] Monocytes# (Auto) 0.00-0.90 Normal (applies to non-numeri c results) [facility] Eosinophils# (Auto) 0.00-0.50 Normal (applies to non-nume tita results) [facility] Basophils# (Auto) 0.00-0.20 Normal (applies to non-numeri c results) [facility] Immature Granulocytes# (Auto) 0.00-7.00 No rmal (applies to non-numeric results) [facility] ID Date Data Source [id number] 01/12/2020 08:24:00 AM EDT [facility] Name Value Range Interpretation Code Description Data Keysha rce(s) Supporting Document(s) Free T4 (Free Thyroxine) 0.76-1.46 Normal (applies to non -numeric results) [facility] ID Date Data Source [id number] 01/12/2020 07:34:00 AM EDT [facility] Name Value Range Interpretation Code Description Data [facility] rce(s) Supporting Document(s) Sodium 140 mmol/L 136-145 Normal (applies to non-numeric resul ts) [facility] Potassium 3.5-5.1 Normal (applies to non-numeric resul ts) [facility] Chloride 102 mmol/L 98-107 Normal (applies to non-numeric resul ts) [facility] Carbon Dioxide CO2 21-32 Normal (applies to non-numer ic results) [facility] Anion Gap 5.0-16.0 Normal (applies to non-numeric resul ts) [facility] BUN 10 mg/dL 7-18 Normal (applies to non-numeric results) [facility] Creatinine,Serum 0.8-1.5 Normal (applies to non-numeric results) [facility] GFR >60 Normal (applies to non-numeric results) [facility] Glucose Level 154 mg/dL 60-99 Above high normal [facility] Reference range is only applicable when patient is fasting Note the following drug interference: Sulfasalazine Sulfapyridine Can see falsely depressed Can see falsely elevated result with up to 17% results with up to 11% decrease in measurement increase in measurement Recommend patients be collected for this test prior to administration of either drug. Calcium 8.5-10.1 Normal (applies to non-numeric resul ts) [facility] Bilirubin,Total 0.1-1.9 Normal (applies to non-numeric results) [facility] SGOT(AST) 18 U/L 15-37 Normal (applies to non-numeric resul ts) [facility] Note the following drug interference: Sulfasalazine Sulfapyridine Can see falsely depressed Can see falsely elevated result with up to 10% results with up to 10% decrease in measurement increase in measurement Recommend patients be collected for this test prior to administration of either drug. SGPT(ALT) 49 U/L 12-78 Normal (applies to non-numeric resul ts) [facility] Note the following drug interference: Sulfasalazine Sulfapyridine Can see falsely depressed Can see falsely elevated result with up to 29% results with up to 10% decrease in measurement increase in measurement Recommend patients be collected for this test prior to administration of either drug. Alkaline Phosphatase 72 U/L 38-126 Normal (applies to non-num martha results) [facility] can increase Alkaline Phosp le vels up to 2 times the normal adult value. Normal values for children and adolescents are 2 to 3 times the normal adult value. Total Protein 6.0-8.2 Normal (applies to non-numeric re sults) [facility] Albumin Level 3.4-5.0 Normal (applies to non-numeric re sults) [facility] ID Date Data Source [id number] 01/12/2020 07:34:00 AM EDT [facility] Name Value Range Interpretation Code Description Data Keysha rce(s) Supporting Document(s) Thyroid Stimulate Hormone TSH 0.358-3.74 No rmal (applies to non-numeric results) [facility] ID Date Data Source [id number] 01/11/2020 02:26:00 PM EDT [facility] Name Value Range Interpretation Code Description Data Keysha rce(s) Supporting Document(s) CEA result 0.2-5.0 Normal (applies to non-numeric resul ts) [facility] % Distribution of CEA 0 - 2.5 [...] be used interchangeably. ID Date Data Source [id number] 01/11/2020 01:55:00 PM EDT [facility] Name Value Range Interpretation Code Description Data Keysha rce(s) Supporting Document(s) CEA 0.2-5.0 Normal (applies to non-numeric results) [facility] % Distribution of CEA 0 - [...] be used interchangeably. ID Date Data Source [id number] 01/11/2020 09:49:00 AM EDT [facility] Name Value Range Interpretation Code Description Data Keysha rce(s) Supporting Document(s) White Blood Count 3.5-10.5 Normal (applies to non-numeri c results) [facility] Red Blood Count 4.30-5.70 Below low normal [facility] Hemoglobin 13.5-17.5 Below low normal [facility] Hematocrit 38.8-50.0 Below low normal [facility] Mean Corpuscular Volume 81.2-95.1 Normal (applies to non- numeric results) [facility] Mean Corpuscular Hgb 25.6-32.2 Normal (applies to non-num martha results) [facility] Mean Corpuscular Hgb Conc 32.0-36.0 Normal (applies to no n-numeric results) [facility] Red Cell Distribution Width 11.8-15.6 Normal (appli es to non-numeric results) [facility] Platelet Count 212 x10 3/uL 150-450 Normal (applies to non-numeric results) [facility] Mean Platelet Volume 9.4-12.4 Below low normal [facility] Neutrophils% (Auto) 31.0-71.0 Normal (applies to non-nume tita results) [facility] Lymphocytes% (Auto) 20.0-55.0 Normal (applies to non-nume tita results) [facility] Monocytes% (Auto) 4.0-12.0 Normal (applies to non-numeri c results) [facility] Eosinophils% (Auto) 1.0-8.0 Normal (applies to non-nume tita results) [facility] Basophils% (Auto) 0.0-2.0 Normal (applies to non-numeri c results) [facility] Immature Granulocytes% (Auto) 0.0-2.0 Normal (raquel lies to non-numeric results) [facility] Neutrophils# (Auto) 1.50-6.20 Normal (applies to non-nume tita results) [facility] Lymphocytes# (Auto) 1.20-4.00 Normal (applies to non-nume tita results) [facility] Monocytes# (Auto) 0.00-0.90 Normal (applies to non-numeri c results) [facility] Eosinophils# (Auto) 0.00-0.50 Normal (applies to non-nume tita results) [facility] Basophils# (Auto) 0.00-0.20 Normal (applies to non-numeri c results) [facility] Immature Granulocytes# (Auto) 0.00-7.00 No rmal (applies to non-numeric results) [facility] ID Date Data Source [id number] 12/21/2019 03:05:00 PM [facility] Name Value Range Interpretation Code Description Data Keysha rce(s) Supporting Document(s) CEA result 0.2-5.0 Normal (applies to non-numeric resul ts) [facility] % Distribution of CEA 0 - 2.5 in 98.2% of nonsmokers and 87.3% of smokers 2.6 - 5.0 in 1.8% of non-smokers and 8.0% of smokers Serum CEA concentrations should not be interpreted as absolute evidence for the presence or absence of malignant disease. Assayed utilizing the [employer] chemiluminometric technology. Values obtained by using different assay methods cannot be used interchangeably. ID Date Data Source [id number] 12/21/2019 02:19:00 PM EST [facility] Name Value Range Interpretation Code Description Data Keysha rce(s) Supporting Document(s) CEA 0.2-5.0 Normal (applies to non-numeric results) [facility] % Distribution of CEA 0 - 2.5 in 98.2% of nonsmokers and 87.3% of smokers 2.6 - 5.0 in 1.8% of non-smokers and 8.0% of smokers Serum CEA concentrations should not be interpreted as absolute evidence for the presence or absence of malignant disease. Assayed utilizing the [employer] chemiluminometric technology. Values obtained by using different assay methods cannot be used interchangeably. ID Date Data Source [id number] 12/21/2019 09:51:00 AM EST [facility] Name Value Range Interpretation Code Description Data Keysha rce(s) Supporting Document(s) Sodium 140 mmol/L 136-145 Normal (applies to non-numeric resul ts) [facility] Potassium 3.5-5.1 Normal (applies to non-numeric resul ts) [facility] Chloride 104 mmol/L 98-107 Normal (applies to non-numeric resul ts) [facility] Carbon Dioxide CO2 21-32 Normal (applies to non-numer ic results) [facility] Anion Gap 5.0-16.0 Normal (applies to non-numeric resul ts) [facility] BUN 7 mg/dL 7-18 Normal (applies to non-numeric results) [facility] Creatinine,Serum 0.8-1.5 Normal (applies to non-numeric results) [facility] GFR >60 Normal (applies to non-numeric results) [facility] Glucose Level 143 mg/dL 60-99 Above high normal [facility] Reference range is only applicable when patient is fasting Note the following drug interference: Sulfasalazine Sulfapyridine Can see falsely depressed Can see falsely elevated result with up to 17% results with up to 11% decrease in measurement increase in measurement Recommend patients be collected for this test prior to administration of either drug. Calcium 8.5-10.1 Normal (applies to non-numeric resul ts) [facility] Bilirubin,Total 0.1-1.9 Normal (applies to non-numeric results) [facility] SGOT(AST) 27 U/L 15-37 Normal (applies to non-numeric resul ts) [facility] Note the following drug interference: Sulfasalazine Sulfapyridine Can see falsely depressed Can see falsely elevated result with up to 10% results with up to 10% decrease in measurement increase in measurement Recommend patients be collected for this test prior to administration of either drug. SGPT(ALT) 76 U/L 12-78 Normal (applies to non-numeric resul ts) [facility] Note the following drug interference: Sulfasalazine Sulfapyridine Can see falsely depressed Can see falsely elevated result with up to 29% results with up to 10% decrease in measurement increase in measurement Recommend patients be collected for this test prior to administration of either drug. Alkaline Phosphatase 71 U/L 38-126 Normal (applies to non-num martha results) [facility] can increase Alkaline Phosp le vels up to 2 times the normal adult value. Normal values for children and adolescents are 2 to 3 times the normal adult value. Total Protein 6.0-8.2 Normal (applies to non-numeric re sults) [facility] Albumin Level 3.4-5.0 Normal (applies to non-numeric re sults) [facility] ID Date Data Source [id number] 12/21/2019 09:51:00 AM EST [facility] Name Value Range Interpretation Code Description Data Keysha rce(s) Supporting Document(s) Free T4 (Free Thyroxine) 0.76-1.46 Normal (applies to non -numeric results) [facility] ID Date Data Source [id number] 12/21/2019 09:21:00 AM [facility] Name Value Range Interpretation Code Description Data Keysha rce(s) Supporting Document(s) White Blood Count 3.5-10.5 Normal (applies to non-numeri c results) [facility] Red Blood Count 4.30-5.70 Below low normal [facility] Hemoglobin 13.5-17.5 Below low normal [facility] Hematocrit 38.8-50.0 Below low normal [facility] Mean Corpuscular Volume 81.2-95.1 Normal (applies to non- numeric results) [facility] Mean Corpuscular Hgb 25.6-32.2 Normal (applies to non-num martha results) [facility] Mean Corpuscular Hgb Conc 32.0-36.0 Normal (applies to no n-numeric results) [facility] Red Cell Distribution Width 11.8-15.6 Normal (appli es to non-numeric results) [facility] Platelet Count 267 x10 3/uL 150-450 Normal (applies to non-numeric results) [facility] Mean Platelet Volume 9.4-12.4 Below low normal [facility] Neutrophils% (Auto) 31.0-71.0 Normal (applies to non-nume tita results) [facility] Lymphocytes% (Auto) 20.0-55.0 Normal (applies to non-nume tita results) [facility] Monocytes% (Auto) 4.0-12.0 Above high normal [facility] Eosinophils% (Auto) 1.0-8.0 Normal (applies to non-nume tita results) [facility] Basophils% (Auto) 0.0-2.0 Normal (applies to non-numeri c results) [facility] Immature Granulocytes% (Auto) 0.0-2.0 Normal (raquel lies to non-numeric results) [facility] Neutrophils# (Auto) 1.50-6.20 Normal (applies to non-nume tita results) [facility] Lymphocytes# (Auto) 1.20-4.00 Normal (applies to non-nume tita results) [facility] Monocytes# (Auto) 0.00-0.90 Above high normal [facility] Eosinophils# (Auto) 0.00-0.50 Normal (applies to non-nume tita results) [facility] Basophils# (Auto) 0.00-0.20 Normal (applies to non-numeri c results) [facility] Immature Granulocytes# (Auto) 0.00-7.00 No rmal (applies to non-numeric results) [facility] ID Date Data Source [id number] 11/30/2019 10:59:00 AM EST [facility] Name Value Range Interpretation Code Description Data Keysha rce(s) Supporting Document(s) Sodium 141 mmol/L 136-145 Normal (applies to non-numeric resul ts) [facility] Potassium 3.5-5.1 Normal (applies to non-numeric resul ts) [facility] Chloride 103 mmol/L 98-107 Normal (applies to non-numeric resul ts) [facility] Carbon Dioxide CO2 21-32 Normal (applies to non-numer ic results) [facility] Anion Gap 5.0-16.0 Normal (applies to non-numeric resul ts) [facility] BUN 7 mg/dL 7-18 Normal (applies to non-numeric results) [facility] Creatinine,Serum 0.8-1.5 Normal (applies to non-numeric results) [facility] GFR >60 Normal (applies to non-numeric results) [facility] Glucose Level 145 mg/dL 60-99 Above high normal [facility] Reference range is only applicable when patient is fasting Note the following drug interference: Sulfasalazine Sulfapyridine Can see falsely depressed Can see falsely elevated result with up to 17% results with up to 11% decrease in measurement increase in measurement Recommend patients be collected for this test prior to administration of either drug. Calcium 8.5-10.1 Normal (applies to non-numeric resul ts) [facility] Bilirubin,Total 0.1-1.9 Normal (applies to non-numeric results) [facility] SGOT(AST) 23 U/L 15-37 Normal (applies to non-numeric resul ts) [facility] Note the following drug interference: Sulfasalazine Sulfapyridine Can see falsely depressed Can see falsely elevated result with up to 10% results with up to 10% decrease in measurement increase in measurement Recommend patients be collected for this test prior to administration of either drug. SGPT(ALT) 84 U/L 12-78 Above high normal [facility] Note the following drug interference: Sulfasalazine Sulfapyridine Can see falsely depressed Can see falsely elevated result with up to 29% results with up to 10% decrease in measurement increase in measurement Recommend patients be collected for this test prior to administration of either drug. Alkaline Phosphatase 78 U/L 38-126 Normal (applies to non-num martha results) [facility] can increase Alkaline Phosp le vels up to 2 times the normal adult value. Normal values for children and adolescents are 2 to 3 times the normal adult value. Total Protein 6.0-8.2 Normal (applies to non-numeric re sults) [facility] Albumin Level 3.4-5.0 Normal (applies to non-numeric re sults) [facility] ID Date Data Source [id number] 11/30/2019 10:59:00 AM EST [facility] Name Value Range Interpretation Code Description Data Keysha rce(s) Supporting Document(s) Thyroid Stimulate Hormone TSH 0.358-3.74 No rmal (applies to non-numeric results) [facility] ID Date Data Source [id number] 11/30/2019 10:59:00 AM EST [facility] Name Value Range Interpretation Code Description Data Keysha rce(s) Supporting Document(s) Free T4 (Free Thyroxine) 0.76-1.46 Normal (applies to non -numeric results) [facility] ID Date Data Source [id number] 11/30/2019 09:55:00 AM EST [facility] Name Value Range Interpretation Code Description Data Keysha rce(s) Supporting Document(s) White Blood Count 3.5-10.5 Normal (applies to non-numeri c results) [facility] Red Blood Count 4.30-5.70 Normal (applies to non-numeric results) [facility] Hemoglobin 13.5-17.5 Below low normal [facility] Hematocrit 38.8-50.0 Normal (applies to non-numeric resul ts) [facility] Mean Corpuscular Volume 81.2-95.1 Normal (applies to non- numeric results) [facility] Mean Corpuscular Hgb 25.6-32.2 Normal (applies to non-num martha results) [facility] Mean Corpuscular Hgb Conc 32.0-36.0 Normal (applies to no n-numeric results) [facility] Red Cell Distribution Width 11.8-15.6 Normal (appli es to non-numeric results) [facility] Platelet Count 341 x10 3/uL 150-450 Normal (applies to non-numeric results) [facility] Mean Platelet Volume 9.4-12.4 Below low normal [facility] Neutrophils% (Auto) 31.0-71.0 Normal (applies to non-nume tita results) [facility] Lymphocytes% (Auto) 20.0-55.0 Normal (applies to non-nume tita results) [facility] Monocytes% (Auto) 4.0-12.0 Above high normal [facility] Eosinophils% (Auto) 1.0-8.0 Normal (applies to non-nume tita results) [facility] Basophils% (Auto) 0.0-2.0 Normal (applies to non-numeri c results) [facility] Immature Granulocytes% (Auto) 0.0-2.0 Normal (raquel lies to non-numeric results) [facility] Neutrophils# (Auto) 1.50-6.20 Normal (applies to non-nume tita results) [facility] Lymphocytes# (Auto) 1.20-4.00 Above high normal [facility] Monocytes# (Auto) 0.00-0.90 Above high normal [facility] Eosinophils# (Auto) 0.00-0.50 Normal (applies to non-nume tita results) [facility] Basophils# (Auto) 0.00-0.20 Normal (applies to non-numeri c results) [facility] Immature Granulocytes# (Auto) 0.00-7.00 No rmal (applies to non-numeric results) [facility] ID Date Data Source [id number] 11/13/2019 02:43:00 PM EST [facility] spital Pending Campylobacter: Not detected C.difficile Toxin [...] Not detected Shiga toxin 1/2: Not detected [facility] B read back information 11/13/19 1442 [facility] Methodology: Multiplexed PCR Reference Range: None detected Adenovirus F 40/41: Not detected Astrovirus: Detected Norovirus GI/GII: Not detected Rotavirus A: Not detected Sapovirus: Not detected Name Value Range Interpretation Code Description Data Keysha rce(s) Supporting Document(s) ID Date Data Source [id number] 11/12/2019 05:40:00 PM [facility] Collected By: Nurse Initials: pc Time Collected: 1731 Name Value Range Interpretation Code Description Data [facility] rce(s) Supporting Document(s) Color,Urine Colorl-Dk Y Normal (applies to non-numeric res ults) [facility] Clarity,Urine Clear Normal (applies to non-numeric re sults) [facility] Specific [place],Urine 1.015-1.025 Normal (applies to non- numeric results) [facility] pH,Urine 5.0-7.0 Normal (applies to non-numeric resul ts) [facility] Protein,Urine Negative Normal (applies to non-numeric re sults) [facility] Glucose,[facility]rine Negative [facility] Ketones,Urine Negative Normal (applies to non-numeric re sults) [facility] Blood,Urine Negative Normal (applies to non-numeric resu lts) [facility] Bilirubin,Urine Negative Normal (applies to non-numeric results) [facility] Urobilinogen,Urine Normal Normal (applies to non-numer ic results) [facility] Leukocyte Esterase,Urine Negative Normal (applies to non -numeric results) [facility] Nitrite,Urine Negative Normal (applies to non-numeric re sults) [facility] ID Date Data Source [id number] 11/18/2019 01:21:00 AM [facility] spital NO GROWTH AFTER 120 HOURS (5 Days) Proc edure Performed By: [facility] [address] [place] [address] Director: Gino Davila Name Value Range Interpretation Code Description Data Keysha rce(s) Supporting Document(s) ID Date Data Source [id number] 11/17/2019 08:43:00 PM EST [facility] NO GROWTH AFTER 120 HOURS (5 Days) Pr ocedure Performed By: [facility] [address] [place] [address] Director: Gino Davila Name Value Range Interpretation Code Description Data Keysha rce(s) Supporting Document(s) ID Date Data Source [id number] 11/18/2019 01:21:00 AM EST [facility] NO [facility] AFTER 120 HOURS (5 Days) Proc edure Performed By: [facility] [address] [place] [address] Director: Gino Davila Name Value Range Interpretation Code Description Data Keysha rce(s) Supporting Document(s) ID Date Data Source [id number] 11/17/2019 08:43:00 PM [facility] NO GROWTH AFTER 120 HOURS (5 Days) Pr ocedure Performed By: [facility] [address] [place] [address] Director: Gino Davila Name Value Range Interpretation Code Description Data Keysha rce(s) Supporting Document(s) ID Date Data Source [id number] 11/12/2019 05:25:00 PM [facility] Name Value Range Interpretation Code Description Data Keysha rce(s) Supporting Document(s) PT 9.2-11.7 Normal (applies to non-numeric results) [facility] INR Normal (applies to non-numeric results) [facility] The use of INR is restricted to patients on stable oral anticoagulant. Therapeutic Range: 2.0 - 3.0 High Risk Range: 2.5 - 3.5 ID Date Data Source [id number] 11/12/2019 05:25:00 PM [facility] Name Value Range Interpretation Code Description Data Keysha rce(s) Supporting Document(s) PTT 23.8-37.9 Normal (applies to non-numeric results) [facility] ID Date Data Source [id number] 11/12/2019 05:15:00 PM [facility] Name Value Range Interpretation Code Description Data Keysha rce(s) Supporting Document(s) Lactic Acid 0.4-2.0 Normal (applies to non-numeric resu lts) [facility] ID Date Data Source [id number] 11/12/2019 04:59:00 PM [facility] Name Value Range Interpretation Code Description Data Keysha rce(s) Supporting Document(s) Sodium 135 mmol/L 136-145 Below low normal [facility] Potassium 3.5-5.1 Normal (applies to non-numeric resul ts) [facility] Chloride 100 mmol/L 98-107 Normal (applies to non-numeric resul ts) [facility] Carbon Dioxide CO2 21-32 Normal (applies to non-numer ic results) [facility] Anion Gap 5.0-16.0 Normal (applies to non-numeric resul ts) [facility] BUN 14 mg/dL 7-18 Normal (applies to non-numeric results) [facility] Creatinine,Serum 0.8-1.5 Normal (applies to non-numeric results) [facility] GFR >60 Normal (applies to non-numeric results) [facility] Glucose Level 163 mg/dL 60-99 Above high normal [facility] Reference range is only applicable when patient is fasting Note the following drug interference: Sulfasalazine Sulfapyridine Can see falsely depressed Can see falsely elevated result with up to 17% results with up to 11% decrease in measurement increase in measurement Recommend patients be collected for this test prior to administration of either drug. Calcium 8.5-10.1 Below low normal [facility] Bilirubin,Total 0.1-1.9 Normal (applies to non-numeric results) [facility] SGOT(AST) 39 U/L 15-37 Above high normal [facility] Note the following drug interference: Sulfasalazine Sulfapyridine Can see falsely depressed Can see falsely elevated result with up to 10% results with up to 10% decrease in measurement increase in measurement Recommend patients be collected for this test prior to administration of either drug. SGPT(ALT) 113 U/L 12-78 Above high normal [facility] Note the following drug interference: Sulfasalazine Sulfapyridine Can see falsely depressed Can see falsely elevated result with up to 29% results with up to 10% decrease in measurement increase in measurement Recommend patients be collected for this test prior to administration of either drug. Alkaline Phosphatase 61 U/L 38-126 Normal (applies to non-num martha results) [facility] can increase Alkaline Phosp le vels up to 2 times the normal adult value. Normal values for children and adolescents are 2 to 3 times the normal adult value. Total Protein 6.0-8.2 Normal (applies to non-numeric re sults) [facility] Albumin Level 3.4-5.0 Normal (applies to non-numeric re sults) [facility] ID Date Data Source [id number] 11/12/2019 05:00:00 PM [facility] Name Value Range Interpretation Code Description Data Keysha rce(s) Supporting Document(s) Troponin I 0.000-0.056 Normal (applies to non-numeric resu lts) [facility] ID Date Data Source [id number] 11/12/2019 05:00:00 PM [facility] Value Range Interpretation Code Description Data Keysha rce(s) Supporting Document(s) Amylase 60 U/L 25-115 Normal (applies to non-numeric resul ts) [facility] ID Date Data Source [id number] 11/12/2019 05:00:00 PM [facility] Name Value Range Interpretation Code Description Data Keysha rce(s) Supporting Document(s) Lipase 140 U/L 73-393 Normal (applies to non-numeric resul ts) [facility] ID Date Data Source [id number] 11/12/2019 04:54:00 PM [facility] Value Range Interpretation Code Description Data Keysha rce(s) Supporting Document(s) White Blood Count 3.5-10.5 Normal (applies to non-numeri c results) [facility] Red Blood Count 4.30-5.70 Normal (applies to non-numeric results) [facility] Hemoglobin 13.5-17.5 Below low normal [facility] Hematocrit 38.8-50.0 Normal (applies to non-numeric resul ts) [facility] Mean Corpuscular Volume 81.2-95.1 Normal (applies to non- numeric results) [facility] Mean Corpuscular Hgb 25.6-32.2 Normal (applies to non-num martha results) [facility] Mean Corpuscular Hgb Conc 32.0-36.0 Normal (applies to no n-numeric results) [facility] Red Cell Distribution Width 11.8-15.6 Normal (appli es to non-numeric results) [facility] Platelet Count 122 x10 3/uL 150-450 Below low normal [facility] Slide has been reviewed and findings con firmed by a technologist/correctional maintenance technician. Mean Platelet Volume 9.4-12.4 Below low normal [facility] Neutrophils% (Auto) 31.0-71.0 Normal (applies to non-nume tita results) [facility] Lymphocytes% (Auto) 20.0-55.0 Normal (applies to non-nume tita results) [facility] Monocytes% (Auto) 4.0-12.0 Normal (applies to non-numeri c results) [facility] Eosinophils% (Auto) 1.0-8.[address] [facility] Basophils% (Auto) 0.0-2.0 Normal (applies to non-numeri c results) [facility] Immature Granulocytes% (Auto) 0.0-2.0 Normal (raquel lies to non-numeric results) [facility] Neutrophils# (Auto) 1.50-6.20 Normal (applies to non-nume tita results) [facility] Lymphocytes# (Auto) 1.20-4.00 Normal (applies to non-nume tita results) [facility] Monocytes# (Auto) 0.00-0.90 Normal (applies to non-numeri c results) [facility] Eosinophils# (Auto) 0.00-0.50 Normal (applies to non-nume tita results) [facility] Basophils# (Auto) 0.00-0.20 Normal (applies to non-numeri c results) [facility] Immature Granulocytes# (Auto) 0.00-7.00 No rmal (applies to non-numeric results) [facility] ID Date Data Source [id number] 11/13/2019 07:09:00 AM EST [facility] Imaging Services Department Imaging Report [address], [place] [address] %(RAD)RES..mtdd.print.filter("line") Name: MAMTA YORK : 1970 Age/Sex: 48M Ordering Provider: Efe Quispe MD Med Rec #: [id number] Reg Status: [facility] ER Room #: Date of Service: 11/12/19 Report Number: [id number] cc:Kole Perez NP Send Report To: [id number] CT/CT Abdomen & Pelvis No Contras Reason [...] Date/Time: 11/12/19 1740 Transcribed Date/Time: 11/13/19 0709 [employer] Manager: TESSIE Name Value Range Interpretation Code Description Data Keysha rce(s) Supporting Document(s) ID Date Data Source [id number] 11/13/2019 08:48:00 AM [facility] Imaging Services Department Imaging Report [address] [place] [address] %(RAD)RES..mtdd.print.filter("line") Name: MAMTA YORK : 1970 Age/Sex: 48M Ordering Provider: Efe Quispe MD Med Rec #: [id number] Reg Status: [facility] ER Room #: Date of Service: 11/12/19 Report Number: [id number] cc:Kole Perez NP Send Report To: [id number] XRP/XR Chest Xray Portable Reason for exam: [...] Date/Time: 11/12/19 1643 Transcribed Date/Time: 11/13/19 0848 [employer] Services Manager: MICHAEL Name Value Range Interpretation Code Description Data [facility](s) Supporting Document(s) ID Date Data Source [id number] 11/12/2019 04:47:00 PM [facility] spital Method performed by Isothermal Nucle ic [...] Name Value Range Interpretation Code Description [facility] ID Date Data Source [id number] 11/13/2019 02:34:00 PM [facility] Methodology: Multiplexed PCR Refer ence Range: None detected Name Value Range Interpretation Code Description [facility] Document(s) ID Date Data Source [id number] 10/19/2019 03:32:00 PM [facility] Name Value Range Interpretation Code Description Data [facility](s) Supporting Document(s) CEA result 0.2-5.0 [facility] % Distribution of CEA 0 - [...] be used interchangeably. ID Date Data Source [id number] 10/19/2019 03:24:00 PM [facility] Name Value Range Interpretation Code Description Data [facility](s) Supporting Document(s) CEA 0.2-5.0 Above high normal [facility] % Distribution of CEA 0 - 2.5 [...] be used interchangeably. ID Date Data Source [id number] 10/19/2019 02:28:00 PM EST [facility] Name Value Range Interpretation Code Description Data Keysha rce(s) Supporting Document(s) Sodium 140 mmol/L 136-145 Normal (applies to non-numeric resul ts) [facility] Potassium 3.5-5.1 Normal (applies to non-numeric resul ts) [facility] Chloride 100 mmol/L 98-107 Normal (applies to non-numeric resul ts) [facility] Carbon Dioxide CO2 21-32 Normal (applies to non-numer ic results) [facility] Anion Gap 5.0-16.0 Normal (applies to non-numeric resul ts) [facility] BUN 9 mg/dL 7-18 Normal (applies to non-numeric results) [facility] Creatinine,Serum 0.8-1.5 Normal (applies to non-numeric results) [facility] GFR >60 Normal (applies to non-numeric results) [facility] Glucose Level 133 mg/dL 60-99 Above high normal [facility] Reference range is only applicable when patient is fasting Note the following drug interference: Sulfasalazine Sulfapyridine Can see falsely depressed Can see falsely elevated result with up to 17% results with up to 11% decrease in measurement increase in measurement Recommend patients be collected for this test prior to administration of either drug. Calcium 8.5-10.1 Normal (applies to non-numeric resul ts) [facility] Bilirubin,Total 0.1-1.9 Normal (applies to non-numeric results) [facility] SGOT(AST) 16 U/L 15-37 Normal (applies to non-numeric resul ts) [facility] Note the following drug interference: Sulfasalazine Sulfapyridine Can see falsely depressed Can see falsely elevated result with up to 10% results with up to 10% decrease in measurement increase in measurement Recommend patients be collected for this test prior to administration of either drug. SGPT(ALT) 56 U/L 12-78 Normal (applies to non-numeric resul ts) [facility] Note the following drug interference: Sulfasalazine Sulfapyridine Can see falsely depressed Can see falsely elevated result with up to 29% results with up to 10% decrease in measurement increase in measurement Recommend patients be collected for this test prior to administration of either drug. Alkaline Phosphatase 73 U/L 38-126 Normal (applies to non-num martha results) [facility] can increase Alkaline Phosp le vels up to 2 times the normal adult value. Normal values for children and adolescents are 2 to 3 times the normal adult value. Total Protein 6.0-8.2 Normal (applies to non-numeric re sults) [facility] Albumin Level 3.4-5.0 Normal (applies to non-numeric re sults) [facility] ID Date Data Source [id number] 10/19/2019 02:28:00 PM [facility] Name Value Range Interpretation Code Description Data Keysha rce(s) Supporting Document(s) Thyroid Stimulate Hormone TSH 0.358-3.740 No rmal (applies to non-numeric results) [facility] ID Date Data Source [id number] 10/19/2019 02:28:00 PM [facility] Name Value Range Interpretation Code Description Data Keysha rce(s) Supporting Document(s) Free T4 (Free Thyroxine) 0.76-1.46 Normal (applies to non -numeric results) [facility] ID Date Data Source [id number] 10/19/2019 09:42:00 AM [facility] Name Value Range Interpretation Code Description Data Keysha rce(s) Supporting Document(s) White Blood Count 3.5-10.5 Above high normal [facility] Red Blood Count 4.30-5.70 Normal (applies to non-numeric results) [facility] Hemoglobin 13.5-17.5 Below low normal [facility] ospital Hematocrit 38.8-50.0 Normal (applies to non-numeric resul ts) [facility] Mean Corpuscular Volume 81.2-95.1 Normal (applies to non- numeric results) [facility] Mean Corpuscular Hgb 25.6-32.2 Normal (applies to non-num martha results) [facility] Mean Corpuscular Hgb Conc 32.0-36.0 Normal (applies to no n-numeric results) [facility] Red Cell Distribution Width 11.8-15.6 Normal (appli es to non-numeric results) [facility] Platelet Count 396 x10 3/uL 150-450 Normal (applies to non-numeric results) [facility] Mean Platelet Volume 9.4-12.4 Below low normal [facility] Neutrophils% (Auto) 31.0-71.0 Normal (applies to non-nume tita results) [facility] Lymphocytes% (Auto) 20.0-55.0 Normal (applies to non-nume tita results) [facility] Monocytes% (Auto) 4.0-12.0 Normal (applies to non-numeri c results) [facility] Eosinophils% (Auto) 1.0-8.0 Above high normal [facility] Basophils% (Auto) 0.0-2.0 Normal (applies to non-numeri c results) [facility] Immature Granulocytes% (Auto) 0.0-2.0 Normal (raquel lies to non-numeric results) [facility] Neutrophils# (Auto) 1.50-6.20 Normal (applies to non-nume tita results) [facility] Lymphocytes# (Auto) 1.20-4.00 Above high normal [facility] Monocytes# (Auto) 0.00-0.90 Above high normal [facility] Eosinophils# (Auto) 0.00-0.50 Above high normal [facility] Basophils# (Auto) 0.00-0.20 Normal (applies to non-numeri c results) [facility] Immature Granulocytes# (Auto) 0.00-7.00 No rmal (applies to non-numeric results) [facility] Slide has been reviewed and findings con firmed by a technologist/correctional maintenance technician. ID Date Data Source [id number] 10/19/2019 01:40:00 PM [facility] Imaging Services Department Imaging Report [address] [place] [id number] %(RAD)RES..mtdd.print.filter("line") Name: MAMTA YORK : 1970 Age/Sex: 48M Ordering Provider: Kristel Campos MD Med Rec #: [id number] Reg Status: DEP REF Room #: Date of Service: 10/19/19 Report Number: [id number] cc:Kristel Campos MD; Kole Perez NP Send Report To: [id number] US/US Dup Upper Ext Veins Rt Reason [...] Date/Time: 10/19/19 1333 Transcribed Date/Time: 10/19/19 1340 [employer]atering Convention Services Manager: TESSIE Name Value Range Interpretation Code Description Data Keysha rce(s) Supporting Document(s) ID Date Data Source [id number] 10/19/2019 01:50:00 PM [facility] Imaging Services Department Imaging Report [address], [place] [address] %(RAD)RES..mtdd.print.filter("line") Name: MAMTA YORK : 1970 Age/Sex: 48M Ordering Provider: Kristel Campos MD Med Rec #: [id number] Reg Status: DEP REF Room #: Date of Service: 10/19/19 Report Number: [id number] cc:Kristel Campos MD; Kole Perez NP Send Report To: [id number] US/US Soft Tissue Head/Neck Reason for exam: [...] Tigre Castellano MD <Electronically signed by Tigre aCstellano MD> 10/20/19 1207 Dictation Date/Time: 10/19/19 1330 Transcribed Date/Time: 10/19/19 1350 [employer]ing Convention Services Manager: TESSIE Name Value Range Interpretation Code Description Data Keysha rce(s) Supporting Document(s) Procedure Social History Code Duration Value Status Description Data Source(s ) Smoking 12/15/2020 12:00:00 AM EST - 11/04/2018 12:00:00 AM EST Patient is a former smoker completed Patient is a former smoker [facility] ([facility], ) Vital Signs ID Date Data Source UNK Name Value Range Interpretation Code Description Data Source(s) Body surface area Derived from formula 2.12 m2 2.12 m2 [facility] ([facility]) Body weight 96.617 kg 96.617 kg [facility] ([facility]) [place] body weight 160 [lb_av] 160 [lb_av] [facility] ([facility]) Body mass index (BMI) [Ratio] 31.5 kg/m2 31.5 k g/m2 [facility] ([facility]) Body weight 213.00 [lb_av] 213.00 [lb_av] [facility] ([facility]) Body height 69 [in_i] 69 [in_i] [facility] ([facility]) 5'9" Body temperature 96.9 [degF] 96.9 [degF] [facility] ([facility]) Oxygen saturation in Arterial blood by Pulse oximetry 95 % 95 % [facility] ([facility]) Heart rate 134 /min 134 /min [facility] ([facility]) Diastolic blood pressure 84 mm[Hg] 84 mm[Hg] [facility] ([facility]) Systolic blood pressure 146 mm[Hg] 146 mm[Hg] [facility] ([facility]) Body surface area Derived from formula 2.24 m2 2.24 m2 [facility] ([facility]) Body weight 109.771 kg 109.771 kg [facility] ([facility] [place] body weight 160 [lb_av] 160 [lb_av] [facility] ([facility]) Body mass index (BMI) [Ratio] 35.7 kg/m2 35.7 k g/m2 [facility] ([facility]) Body weight 242.00 [lb_av] 242.00 [lb_av] [facility] ([facility]) Body height 69 [in_i] 69 [in_i] [facility] ([facility]) 5'9" Body temperature 96.9 [degF] 96.9 [degF] [facility] ([facility]) Oxygen saturation in Arterial blood by Pulse oximetry 97 % 97 % [facility] ([facility]) Heart rate 93 /min 93 /min [facility] ([facility]) Diastolic blood pressure 70 mm[Hg] 70 mm[Hg] [facility] ([facility]) Systolic blood pressure 130 mm[Hg] 130 mm[Hg] [facility] ([facility]) Body weight 102.060 kg 102.060 kg [facility] ([facility]) Body mass index (BMI) [Ratio] 33.2 kg/m2 33.2 k g/m2 [facility] ([facility]) Body weight 225.00 [lb_av] 225.00 [lb_av] [facility] ([facility]) Body height 69 [in_i] 69 [in_i] [facility] ([facility]) 5'9" Oxygen saturation in Arterial blood by Pulse oximetry 99 % 99 % [facility] ([facility]) Heart rate 105 /min 105 /min [facility] ([facility]) Diastolic blood pressure 82 mm[Hg] 82 mm[Hg] [facility] ([facility]) Systolic blood pressure 102 mm[Hg] 102 mm[Hg] [facility] ([facility]) ID Date Data Source [id number] 09/18/2020 03:11:00 PM EST [facility] spital Name Value Range Interpretation Code Description Data Source(s) Weight Measurement Method 8 8 [facility] Weight 3808 3808 [facility] pital Temperature Source 7 7 [facility] Temperature 97.5 97.5 [facility] spital Respiratory Effort 1 1 [facility] Respiratory Rate 17 17 [facility] Pulse Assessment Method 4 4 [facility] Pulse Rate 130 130 [facility]ital Height 69 69 [facility] 129/91 129/91 [facility] Weight Measurement Method 8 8 [facility] Weight 3808 3808 [facility] pital Temperature Source 7 7 [facility] Temperature 97.5 97.5 [facility] Respiratory Effort 1 1 [facility] Respiratory Rate 17 17 [facility] Pulse Assessment Method 4 4 [facility] Pulse Rate 134 134 [facility] pital Height 69 69 [facility] Blood Pressure 129/91 129/91 [facility] ID Date Data Source [id number] 05/06/2020 05:16:00 PM EDT [facility] Name Value Range Interpretation Code Description Data Source(s) Weight (Calculated Kilograms) 102.06 102.06 [facility] Height (Calculated Centimeters) 172.72 172. 72 [facility] Body Mass Index (BMI) 34.2 34.2 [facility] ID Date Data Source [id number] 04/26/2020 10:06:00 AM EDT [facility] Name Value Range Interpretation Code Description Data Source(s) Weight Measurement Method 8 8 [facility] Weight 3904 3904 [facility] pital Temperature Source 7 7 [facility] Temperature 98.1 98.1 [facility] Respiratory Effort 1 1 [facility] Respiratory Rate 18 18 [facility] Pulse Assessment Method 4 4 [facility] Pulse Rate 118 118 [facility] pital Height 69 69 [facility] Pressure 118/96 118/96 [facility] Weight Measurement Method 8 8 [facility] Weight 3904 3904 [facility] pital Temperature Source 7 7 [facility] Temperature 98.1 98.1 [facility] Respiratory Effort 1 1 [facility] Respiratory Rate 18 18 [facility] Pulse Assessment Method 4 4 [facility] Pulse Rate 118 118 [facility] pital Height 69 69 [facility] Blood Pressure 118/96 118/96 [facility] ID Date Data Source [id number] 02/01/2020 08:14:00 PM EDT [facility] Name Value Range Interpretation Code Description Data Source(s) Weight (Calculated Kilograms) 102.06 102.06 [facility] Height (Calculated Centimeters) 172.72 172. 72 [facility] Body Mass Index (BMI) 34.2 34.2 [facility] ID Date Data Source [id number] 01/11/2020 01:55:00 PM T [facility] Name Value Range Interpretation Code Description Data Source(s) Weight (Calculated Kilograms) 102.06 102.06 [facility] Height (Calculated Centimeters) 172.72 172. 72 [facility] Body Mass Index (BMI) 34.2 34.2 [facility] ID Date Data Source [id number] 12/21/2019 02:19:[address] [facility] Name Value Range Interpretation Code Description Data Source(s) Weight (Calculated Kilograms) 102.06 102.06 [facility] Height (Calculated Centimeters) 172.72 172. 72 [facility] Body Mass Index (BMI) 34.2 34.2 [facility] ID Date Data Source [id number] 11/13/2019 02:34:[address] [facility] Name Value Range Interpretation Code Description Data Source(s) Weight (Calculated Kilograms) 102.06 102.06 [facility] Height (Calculated Centimeters) 172.72 172. 72 [facility] Body Mass Index (BMI) 34.2 34.2 [facility] ID Date Data Source [id number] 11/17/2019 08:43:[address] [facility] Name Value Range Interpretation Code Description Data Source(s) Weight (Calculated Kilograms) 102.06 102.06 [facility] Height (Calculated Centimeters) 172.72 172. 72 [facility] Body Mass Index (BMI) 34.2 34.2 [facility] ID Date Data Source [id number] 12/14/2019 01:02:00 PM EST [facility] Name Value Range Interpretation Code Description Data Source(s) Weight Measurement Method 8 8 [facility] Weight 3680 3680 [facility] pital Temperature Source 7 7 [facility] Temperature 98.3 98.3 [facility] Respiratory Effort 1 1 [facility] Respiratory Rate 18 18 [facility] Pulse Assessment Method 4 4 [facility] Pulse Rate 112 112 [facility] pital Height 69 69 [facility] Blood Pressure 150/60 150/60 [facility] Weight Measurement Method 8 8 [facility] Weight 3680 3680 [facility] pital Temperature Source 7 7 [facility] Temperature 98.3 98.3 [facility] Respiratory Effort 1 1 [facility] Respiratory Rate 18 18 [facility] Pulse Assessment Method 4 4 [facility] Pulse Rate 112 112 [facility] pital Height 69 69 [facility] pital Blood Pressure 150/60 150/60 [facility] Weight Measurement Method 8 8 [facility] Weight 3680 3680 [facility] pital Temperature Source 7 7 [facility] Temperature 98.3 98.3 [facility] Respiratory Effort 1 1 [facility] Respiratory Rate 16 16 [facility] Pulse Assessment Method 4 4 [facility] Pulse Rate 116 116 [facility] pital Height 69 69 [facility] pital Blood Pressure 112/63 112/63 [facility] Weight Measurement Method 8 8 [facility] Weight 3680 3680 [facility] pital Temperature Source 7 7 [facility] Temperature 98.3 98.3 [facility] sp[facility] Respiratory Effort 1 1 [facility] Respiratory Rate 16 16 [facility] Pulse Assessment Method 4 4 [facility] Pulse Rate 108 108 [facility] pital Height 69 69 [facility] Blood Pressure 117/80 117/80 [facility] ID Date Data Source [id number] 10/19/2019 03:24:[address] [facility] Name Value Range Interpretation Code Description Data Source(s) Weight (Calculated Kilograms) 102.06 102.06 [facility] Height (Calculated Centimeters) 172.72 172. 72 [facility] Body Mass Index (BMI) 34.2 34.2 [facility]
[2020-12-15] MEDS: NS 1,000 ML IV SCH (16:13)
--- NOTE | 2020-12-15 16:22 | HPEPDOC ---
[facility] Medical History & Physical Date of Admission Dec 15, 2020 Date of Service: Dec 15, 2020 History and Physical Chief complaint: Who presented to the ER at the direction of his vegetable thinner History of present illness: Patient is a 50-year-old male who presented to the emergency room at the direction of his vegetable thinner after he was found to have right-sided pleural effusion on chest x-ray. Patient was recently admitted to [facility] from 11/21 to 11/25. Patient presented with shortness of breath and was found to have right-sided pneumonia with likely abscess collection. It was decided that patient will continue with antibiotics and no drainage was pursued for the high risk of broncho-pleural fistula formation. Instead. Patient was given a course of IV Zosyn, followed by ceftriaxone and was eventually transitioned to Levaquin orally on discharge. Patient was discharged and followed up with his oncologist, Dr. Armijo on 12/15; who had recommended following up with Pulmonology. He had followed up with Dr. Shaw today and was advised to come to the ER for further evaluation. Currently patient denies any chest pain. Reports that he has been short of breath for the last 2-3 weeks since hes been discharge. This has not changed. Patient does report productive cough with thick mucus described as white and some blood-tinged denies any palpitations. Patient reports that he has not experience any fevers or chills while at home. Denies any nausea, vomiting, abdominal pain. Does report some loose stools. Denies any urinary discomfort. Patient has reported that his appetite is fairly normal and has reported some weight loss. Past Medical History: Stage IV ([id number]) Squamous Cell Lung CA; on Palliative chemotherapy with Dr. Zofia langford (on Eliquis) NIDDM2 DLP History of nicotine dependence Depression Past Surgical History: Right-sided chest port placement Allergies: See below Medications: See below Family History: - Mother with a history of uterine cancer - Father with a history of unknown cancer Social History: - Denies the use of alcohol or illicit drugs; patient reports that he quit smoking 2 years ago but was a smoker of 25 years at 2 packs per day - Denies recent travel or sick contacts - Lives with - Occupation; she reports that he used to work at a [employer] Review of Systems: 10 point review of systems complete, all negative otherwise stated in HPI Physical exam: - Vitals: BP [144/95], HR [114], RR [24], Sat [95%RA], Temp [98.2F] - General: Lying in bed, Speaking in full sentences, AAOx3 - HEENT: NC, AT, PERRLA - CVS: IrIr, +S1S2 - Lungs: Diminished lung sounds at right lung base, no appreciable wheezing, crackles or rhonchi - Abdomen: Soft, Non-distended, Non-tender - Extremities: No lower extremity edema, No calf tenderness - Neuro: No focal motor or sensory deficit - Skin: No visible rashes Labs: See below Imaging: CXR 12/15: Increasing opacities in the right hemithorax as above. CXR 12/15: Right hilar and mediastinal adenopathy persists. There is evidence of significant atelectasis in the right lower lobe. Right pleural effusion. Cephalization of the pulmonary vasculature visible on the left. CTA 12/15: No CT evidence of pulmonary embolism. Fluid collection in the right lower lobe, unchanged in size when compared to the prior study. New loculated right pleural fluid collection is quite extensive and could represent empyema. Extensive right lower lobe consolidative opacity surrounding the fluid collection. Increased right upper lobe consolidative opacity. Increased size of mediastinal adenopathy as discussed above. Proximal esophagus is moderately dilated, therefore I suspect some degree of esophageal obstruction by the posterior mediastinal adenopathy. EKG: See below Assessment and Plan: Shortness of breath / Productive cough - likely 2/2 multifactorial etiology - R sided effusion - possibly 2/2 malignancy, possibly 2/2 infectious etiology - Patient has Stage IV Squamous cell lung cancer on palliative chemotherapy - Patient had recently received antibiotics for a right-sided pulmonary abscess - Will check sputum cultures / blood cultures / MRSA screen / Procalcitonin - Will start Mucinex / Incentive spirometry / Acapella - Will start Zosyn and Vancomycin - Will start IV fluid hydration - Possibly 2/2 Atrial fibrillation with RVR - Currently patient denies any chest pain or palpitations - Hemodynamically stable - HR in the ER was noted to be 110s - 120s - Will start Metoprolol with holding parameters - Will hold Eliquis (re: Hemoptysis and possible drainage of R sided effusion) - Case discussed with pulmonology and cardiothoracic surgery Stage IV ([id number]) Squamous Cell Lung CA - on Palliative chemotherapy with Dr. Zofia langford - Will hold Eliquis NIDDM2 - Will start ISS DLP - c/w Simvastatin History of nicotine dependence - Quit smoking 2 years ago Depression - c/w Sertraline DVT prophylaxis - Will start TEDs/Sequentials (Hemoptysis / Possible R effusion drainage) Code status: - Discussed CODE STATUS with patient - Currently, he would like full resuscitation and mechanical ventilation if the need arises - Called and discussed case with , Gisel Suresh and provided her with an update Vital Signs Vital Signs Date Time Temp Pulse Resp B/P (MAP) Pulse Ox O2 Delivery O2 Flow Rate FiO2 12/15/20 16:15 121 24 148/95 (112) 97 Room Air 12/15/20 11:12 98.2 Laboratory Data Labs 24H Laboratory Tests 2 12/15/20 12:00: Prothrombin Time 14.4H, Prothromb Time International Ratio 1.10, Lactic Acid Level 3.4*H 12/15/20 12:08: Immature Granulocyte % (Auto) 0.8, Neutrophils (%) (Auto) 64.6, Lymphocytes (%) (Auto) 12.2L, Monocytes (%) (Auto) 8.8H, Eosinophils (%) (Auto) 13.2H, Basophils (%) (Auto) 0.4, Neutrophils # (Auto) 11.7H, Lymphocytes # (Auto) 2.2, Monocytes # (Auto) 1.6H, Eosinophils # (Auto) 2.4H, Basophils # (Auto) 0.1, Nucleated Red Blood Cells % (auto) 0.0, Anion Gap 10, Glomerular Filtration Rate > 60.0, Calcium Level 9.2, Total Bilirubin 0.2, Direct Bilirubin < 0.1, Aspartate Amino Transf (AST/SGOT) 18, Alanine Aminotransferase (ALT/SGPT) 28, Alkaline Phosphatase 72, Total Creatine Kinase 64, Creatine Kinase MB < 1.0, Creatine K inase MB Relative Index 1.56, Troponin I < 0.02, NR-Imb-N-Type Natriuretic Peptide 218H, Total Protein 7.7, Albumin 2.8L, Albumin/Globulin Ratio 0.6, Thyroid Stimulating Hormone (TSH) 1.200 12/15/20 12:57: POC pH (Misc Panel) 7.476H, POC Base Excess (Misc Panel) 8.0H, POC Saturated Percent O2 (Misc) 96, POC pO2 (Misc Panel) 75.0L, POC pCO2 (Misc Panel) 42.7, POC HCO3 (Misc Panel) 31.5H, POC Total CO2 (Misc Panel) 33.0H 12/15/20 12:58: Coronavirus (COVID-19)(PCR) NEGATIVE, Influenza Type A (RT-PCR) NEGATIVE, Influenza Type B (RT-PCR) NEGATIVE, Respiratory Syncytial Virus (PCR) NEGATIVE CBC/BMP Laboratory Tests 12/15/20 12:08 Microbiology Microbiology 12/15/20 Blood Culture, Received Pending 12/15/20 Blood Culture, Received Pending Home Medications Scheduled Apixaban (Eliquis) 2.5 Mg Tablet, 2.5 MG PO BID Cholecalciferol (Vitamin D3) (Vitamin D3) 1,000 Unit Tablet, 2,000 UNITS PO DAILY Glipizide (Glipizide) 5 Mg Tablet, 5 MG PO DAILY Melatonin (Melatonin) 10 Mg Capsule, 10 MG PO QHS Metformin HCl (Metformin HCl) 1,000 Mg Tablet, 1,000 MG PO BID Sennosides/Docusate Sodium (Colace 2-in-1 Tablet) 1 Each Tablet, 1 TAB PO BID Sertraline Hcl (Zoloft) 100 Mg Tablet, 100 MG PO DAILY Simvastatin (Simvastatin) 10 Mg Tablet, 10 MG PO QHS Umeclidinium [place] (Incruse Ellipta) 62.5 Mcg Blst.w.dev, 1 PUFF INH DAILY Scheduled PRN Albuterol Sulfate (Albuterol Sulfate Hfa) 8.5 Gm Hfa.aer.ad, 2 PUFFS INH Q4-6HP PRN for SOB/WHEEZING Mag Hydrox/Aluminum Hyd/Simeth (Mylanta Maximum Strength Liq) 355 Ml Oral.susp, 15 ML PO QID PRN for INDIGESTION Ondansetron HCl (Ondansetron HCl) 8 Mg Tablet, 1 TAB PO Q8HP PRN for NAUSEA OR VOMITING Prochlorperazine Maleate (Prochlorperazine Maleate) 10 Mg Tablet, 10 MG PO Q6H PRN for NAUSEA OR VOMITING Allergies Coded Allergies: No Known Allergies (Unverified , 08/14/19) MICHELLE WOLFF MD Dec 15, 2020 16:22
[2020-12-15 16:53] VITALS: BP 140/90
[2020-12-15] MEDS: HumaLOG INSULIN (NovoLOG) PER UNIT SC SCH ×2 (17:17→21:00)
[2020-12-15] MEDS ORDERED: VANCOMYCIN HCL 1,000 MG, VIAL MATE ADAPTER 1 EACH in D5W 250 ML IV ONE ×2 (18:00→19:00)
[2020-12-15 18:16] LABS: BASO # 0.1 10^3/uL (0.0-0.2); BASO % 0.5 % (0.0-1.0); EOS # 2.1 10^3/uL (0.0-0.5); EOS % 12.7 % (0.0-3.0); HEMATOCRIT 26.9 % (42.0-52.0); HEMOGLOBIN 7.9 g/dl (13.5-17.5); LYMPH # 2.4 10^3/uL (1.5-5.0); LYMPH % 14.3 % (24.0-44.0); MEAN CORPUSCULAR HEMOGLOBIN 26.3 pg (27.0-33.0); MEAN CORPUSCULAR HGB CONC 29.4 g/dl (32.0-36.5); MEAN CORPUSCULAR VOLUME 89.7 fl (80.0-96.0); MONO # 1.6 10^3/uL (0.0-0.8); MONO % 9.2 % (0.0-5.0); NEUTROPHILS # 10.5 10^3/uL (1.5-8.5); NEUTROPHILS % 62.6 % (36.0-66.0); PLATELET COUNT, AUTOMATED 534 10^3/uL (150-450); WHITE BLOOD COUNT 16.8 10^3/uL (4.0-10.0)
[2020-12-15] MEDS: METOPROLOL TART 25 MG TABLET PO SCH ×2 (18:25→23:43)
[2020-12-15 18:42] LABS: CK-MB VALUE MASS < 1.0 NG/ML (<3.6); CPK CREATINE PHOSPHOKINASE 58 U/L (39-308); LDH LACTATE DEHYDROGENASE 231 U/L (87-241); MB/CK RELATIVE INDEX 1.72 (< OR =4); TROPONIN I < 0.02 NG/ML (< 0.10)
--- NOTE | 2020-12-15 19:33 | ECGEPIP ---
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
[2020-12-15 19:46] VITALS: BP 130/79
[2020-12-15] MEDS: SIMVASTATIN 10 MG TAB PO SCH (20:26)
[2020-12-15] MEDS: guaiFENesin ER 600 MG TAB PO SCH (20:26)
[2020-12-15] MEDS: PIPERACILLIN/TAZOBACTAM SOD 3.375 GM in D5W MINI-BAG PLUS 50 ML IV SCH (21:57)
[2020-12-15 23:23] VITALS: BP 121/82
[2020-12-15 23:38] VITALS: BP 136/90
[2020-12-16] VITALS (9 sets, daily range): BP systolic 129–144; BP diastolic 82–97
[2020-12-16] MEDS: PIPERACILLIN/TAZOBACTAM SOD 3.375 GM in D5W MINI-BAG PLUS 50 ML IV SCH ×3 (03:03→14:59)
[2020-12-16 04:14] LABS: BASO # 0.1 10^3/uL (0.0-0.2); BASO % 0.6 % (0.0-1.0); EOS # 2.8 10^3/uL (0.0-0.5); HEMATOCRIT 31.2 % (42.0-52.0); HEMOGLOBIN 9.6 g/dl (13.5-17.5); LYMPH # 2.1 10^3/uL (1.5-5.0); LYMPH % 11.8 % (24.0-44.0); MEAN CORPUSCULAR HGB CONC 30.8 g/dl (32.0-36.5); MEAN CORPUSCULAR VOLUME 87.6 fl (80.0-96.0); MONO # 1.7 10^3/uL (0.0-0.8); MONO % 9.9 % (0.0-5.0); NEUTROPHILS # 10.6 10^3/uL (1.5-8.5); NEUTROPHILS % 60.8 % (36.0-66.0); PLATELET COUNT, AUTOMATED 462 10^3/uL (150-450); RED BLOOD COUNT 3.56 10^6/uL (4.30-6.10); WHITE BLOOD COUNT 17.4 10^3/uL (4.0-10.0)
[2020-12-16 04:38] LABS: BLOOD UREA NITROGEN 8 MG/DL (7-18); CALCIUM LEVEL 8.7 MG/DL (8.5-10.1); CARBON DIOXIDE LEVEL 26 MEQ/L (21-32); CHLORIDE LEVEL 106 MEQ/L (98-107); CK-MB VALUE MASS < 1.0 NG/ML (<3.6); CPK CREATINE PHOSPHOKINASE 67 U/L (39-308); GLOMERULAR FILTRATION RATE > 60.0 (>56); GLUCOSE, FASTING 124 MG/DL (70-100); MAGNESIUM LEVEL 1.7 MG/DL (1.8-2.4); MB/CK RELATIVE INDEX 1.49 (< OR =4); POTASSIUM SERUM 3.4 MEQ/L (3.5-5.1); SODIUM LEVEL 141 MEQ/L (136-145); TROPONIN I < 0.02 NG/ML (< 0.10)
[2020-12-16] MEDS: VANCOMYCIN HCL 1,000 MG, VIAL MATE ADAPTER 1 EACH in D5W 250 ML IV SCH ×2 (04:45→12:39)
[2020-12-16] MEDS ORDERED: MAGNESIUM OXIDE 400MG TAB (MAG-OX) PO ONE (06:30)
[2020-12-16] MEDS: METOPROLOL TART 25 MG TABLET PO SCH ×3 (06:31→17:55)
[2020-12-16] MEDS: NS 1,000 ML IV SCH ×2 (08:55→12:33)
[2020-12-16] MEDS: guaiFENesin ER 600 MG TAB PO SCH ×2 (09:16→20:22)
[2020-12-16] MEDS: HumaLOG INSULIN (NovoLOG) PER UNIT SC SCH ×4 (09:16→20:23)
[2020-12-16] MEDS: VITAMIN D 1,000 INTERNATIONAL UNITS TABLET PO SCH (09:16)
[2020-12-16] MEDS: SERTRALINE 100 MG TAB PO SCH (09:16)
[2020-12-16] MEDS ORDERED: ONDANSETRON 4MG/2ML VIAL IV PRN (11:30)
[2020-12-16] MEDS ORDERED: LEVALBUTEROL 1.25 MG/0.5 ML CONCENTRATE NEB NEB PRN (11:30)
[2020-12-16] MEDS ORDERED: BISACODYL 10 MG SUPP PR PRN (11:30)
--- NOTE | 2020-12-16 12:54 | IPNPDOC ---
Text Note Date of Service The patient was seen on 12/16/20. NOTE Subjective: Patient is a 50-year-old male who presented to the ER at the direction of his senior mechanical designer after he was found to have right-sided pleural effusion on chest x-ray. Patient was recently admitted to [facility] from 11/21 to 11/25. Patient presented with shortness of breath and was found to have right-sided pneumonia with likely abscess collection. It was decided that patient will continue with antibiotics and no drainage was pursued for the high risk of broncho-pleural fistula formation. Instead. Patient was given a course of IV Zosyn, followed by ceftriaxone and was eventually transitioned to Levaquin orally on discharge. On arrival to ER patient had CTA imaging completed in the ER that had revealed evidence of R lung abscess and empyema. Hospitalist service was called for further evaluation and treatment. Patient was seen and examined at the bedside. Currently patient reports that he is feeling better. He does not experience any significant cough or SOB. Objective: Vitals (See below) General: Sitting up in bed, appears comfortable, AAOx3 HEENT: NC, AT CVS: +S1S2 Lungs: Diminished lung sounds at right lung base, auscultation is without any rhonchi, wheezing or crackles Abdomen: Soft, nondistended and nontender Extremities: - Edema, - Calf tenderness Imaging: CXR 12/15: Increasing opacities in the right hemithorax as above. CXR 12/15: Right hilar and mediastinal adenopathy persists. There is evidence of significant atelectasis in the right lower lobe. Right pleural effusion. Cephalization of the pulmonary vasculature visible on the left. CTA 12/15: No CT evidence of pulmonary embolism. Fluid collection in the right lower lobe, unchanged in size when compared to the prior study. New loculated right pleural fluid collection is quite extensive and could represent empyema. Extensive ri ght lower lobe consolidative opacity surrounding the fluid collection. Increased right upper lobe consolidative opacity. Increased size of mediastinal adenopathy as discussed above. Proximal esophagus is moderately dilated, therefore I suspect some degree of esophageal obstruction by the posterior mediastinal adenopathy. Assessment and plan: Shortness of breath / Productive cough - likely 2/2 multifactorial etiology - R sided effusion - possibly 2/2 malignancy, possibly 2/2 infectious etiology - Patient has Stage IV Squamous cell lung cancer on palliative chemotherapy - Patient had recently received antibiotics for a right-sided pulmonary abscess - Blood cultures 12/15: Negative at 24 hours - Sputum culture pending - MRSA screen pending / Procalcitonin - c/w Mucinex / Incentive spirometry / Acapella - c/w Zosyn and Vancomycin (Day #2) - Will DC IV fluids - Possibly 2/2 Atrial fibrillation with RVR - Currently patient denies any chest pain or palpitations - Hemodynamically stable - HR has improved - c/w Metoprolol with holding parameters - Will continue to hold Eliquis (re: Hemoptysis and possible drainage of R sided effusion) - Case discussed with pulmonology - Cardiothoracic surgery and ID on consultation; likely drainage today Stage IV ([id number]) Squamous Cell Lung CA - on Palliative chemotherapy with Dr. Zofia langford - See above NIDDM2 - c/w ISS DLP - c/w Simvastatin History of nicotine dependence - Quit smoking 2 years ago Depression - c/w Sertraline DVT prophylaxis - Will start TEDs/Sequentials (Hemoptysis / Possible R effusion drainage) Code status: - Again discussed CODE STATUS with patient is considering DNR and DNI - Will discuss again this afternoon VS,Fishbone, I+O VS, Fishbone, I+O Laboratory Tests 12/15/20 17:44 12/16/20 04:03 Vital Signs Date Time Temp Pulse Resp B/P (MAP) Pulse Ox O2 Delivery O2 Flow Rate FiO2 12/16/20 12:00 97.7 97 24 137/97 (110) 98 Room Air I&O- Last 24 Hours up to 6 AM 12/16/20 06:00 Intake Total 1950 ml Output Total 600 ml Balance 1350 ml MICHELLE WOLFF MD Dec 16, 2020 12:54
[2020-12-16] MEDS ORDERED: KETOROLAC 30 MG/ML 1ML VIAL IV SCH (13:00)
[2020-12-16] MEDS ORDERED: LIDOCAINE 1% MDV 20ML VIAL As Ordered ONE (13:16)
--- NOTE | 2020-12-16 14:11 | REP ---
INDICATION: POST THORA X RAY. COMPARISON: Chest x-ray December 15, 2020. TECHNIQUE: Three views are provided... FINDINGS: No infiltrate is noted on the left. Cardiomegaly is observed. Right-sided Gkpquy-Z-Brze catheter is seen. There is right paratracheal and right hilar soft tissue fullness consistent with adenopathy. There is diffuse pleural thickening and considerable volume loss is seen in the right lung. A new percutaneously placed pigtail drainage catheter is noted in place along the right anterolateral chest and this portion of the right pleural collection is improved and contains a small quantity of air. No complication is seen. IMPRESSION: Status post right pleural drainage catheter placement. Improved pleural thickening in the right lateral chest with some air in the pleural space. No complication seen. Otherwise unchanged.. <Electronically signed by Herbie Cosme > 12/16/20 [id number]
[2020-12-16 14:17] LABS: SOURCE, BODY FLUID PLEURAL
[2020-12-16 14:18] LABS: APPEARANCE, BODY FLUID TURBID (CLEAR); PLEURAL FL COLOR PINK (COLORLESS)
[2020-12-16] MEDS: LEVALBUTEROL 1.25 MG/0.5 ML CONCENTRATE NEB NEB SCH ×2 (14:58→19:45)
[2020-12-16] MEDS: PERCOCET 5MG/325MG TAB PO PRN ×2 (14:59→15:01)
[2020-12-16] MEDS: KETOROLAC 30 MG/ML 1ML VIAL IV SCH ×2 (14:59→20:23)
[2020-12-16 15:24] LABS: AMYLASE, BODY FLUID 70 U/L (NOT ESTABLISHED); CHOLESTEROL, BODY FLUID < 50 MG/DL (NOT ESTABLISHED); SOURCE, BODY FLUID ALBUMIN PLEURAL; SOURCE, BODY FLUID AMYLASE PLEURAL; SOURCE, BODY FLUID CHOL PLEURAL; SOURCE, BODY FLUID GLUCOSE PLEURAL; SOURCE, BODY FLUID TOT PROTEIN PLEURAL; SOURCE, BODY FLUID TRIG PLEURAL; TRIGLYCERIDE, BODY FLUID 38 MG/DL (NOT ESTABLISHED)
[2020-12-16 15:26] LABS: SOURCE, BODY FLUID LDH PLEURAL
[2020-12-16] MEDS ORDERED: VANCOMYCIN HCL 1,000 MG, VIAL MATE ADAPTER 1 EACH in D5W 250 ML IV SCH (17:00)
--- NOTE | 2020-12-16 17:34 | REP ---
INDICATION: RIGHT LATERAL PLEURAL COLLECTIN, TO -20 PLVC. COMPARISON: None. TECHNIQUE: The procedure was performed under the direct supervision of Dr. Cosme. The risks and benefits of the procedure were explained to the patient and informed consent was obtained. The right pleural effusion was localized using ultrasound guidance. The skin was prepped and draped in a sterile fashion. 1% lidocaine was used as a local anesthetic. Using ultrasound guidance a 10 Urdu Skater APDL catheter was inserted using trocar technique. 100 cc of thick red proteinaceous fluid was withdrawn and sent to the lab for analysis. The catheter was affixed to the skin and a sterile dressing was applied. The catheter was connected to a pleura vac. The patient tolerated the procedure well and there were no immediate complications. After the appropriate amount of monitored convalescence, the patient was discharged from the department. FINDINGS: None IMPRESSION: Ultrasound-guided right thoracentesis with catheter placement. <Electronically signed by Luis Miguel Hoyt > 12/16/20 [id number] <Electronically signed by Herbie Cosme > 12/16/20 [id number]
[2020-12-16] MEDS: cefTRIAXone SOD 2 GM in D5W MINI-BAG PLUS 50 ML IV SCH (17:55)
[2020-12-16] MEDS: NORCO, ANEXSIA 5/325MG TABLET (HYDROcodone/ACETAMINOPHEN) PO PRN (18:39)
[2020-12-16] MEDS: SIMVASTATIN 10 MG TAB PO SCH (20:22)
[2020-12-16] MEDS: DOCUSATE SODIUM 100MG CAPSULE PO SCH (20:22)
[2020-12-17] VITALS: BP 133/88
[2020-12-17] MEDS: PERCOCET 5MG/325MG TAB PO PRN (00:19)
[2020-12-17] MEDS: METOPROLOL TART 25 MG TABLET PO SCH ×5 (00:22→23:00)
[2020-12-17] MEDS: LEVALBUTEROL 1.25 MG/0.5 ML CONCENTRATE NEB NEB SCH ×4 (01:08→19:49)
[2020-12-17] MEDS: KETOROLAC 30 MG/ML 1ML VIAL IV SCH ×4 (03:05→20:42)
[2020-12-17 04:00] VITALS: BP 133/93
[2020-12-17 04:58] LABS: BASO # 0.1 10^3/uL (0.0-0.2); BASO % 0.5 % (0.0-1.0); EOS # 3.2 10^3/uL (0.0-0.5); HEMATOCRIT 31.5 % (42.0-52.0); HEMOGLOBIN 9.7 g/dl (13.5-17.5); LYMPH # 1.9 10^3/uL (1.5-5.0); LYMPH % 12.5 % (24.0-44.0); MEAN CORPUSCULAR HEMOGLOBIN 27.5 pg (27.0-33.0); MEAN CORPUSCULAR HGB CONC 30.8 g/dl (32.0-36.5); MEAN CORPUSCULAR VOLUME 89.2 fl (80.0-96.0); MONO # 1.4 10^3/uL (0.0-0.8); MONO % 9.1 % (2.0-8.0); NEUTROPHILS # 8.8 10^3/uL (1.5-8.5); NEUTROPHILS % 56.5 % (36.0-66.0); PLATELET COUNT, AUTOMATED 500 10^3/uL (150-450); RED BLOOD COUNT 3.53 10^6/uL (4.30-6.10); WHITE BLOOD COUNT 15.6 10^3/uL (4.0-10.0)
[2020-12-17 05:03] LABS: EOS % 20.6 % (0.0-3.0)
[2020-12-17 05:28] LABS: BLOOD UREA NITROGEN 10 MG/DL (7-18); CALCIUM LEVEL 8.4 MG/DL (8.5-10.1); CARBON DIOXIDE LEVEL 27 MEQ/L (21-32); CHLORIDE LEVEL 108 MEQ/L (98-107); CREATININE FOR GFR 1.01 MG/DL (0.70-1.30); GLOMERULAR FILTRATION RATE > 60.0 (>56); GLUCOSE, FASTING 118 MG/DL (70-100); MAGNESIUM LEVEL 1.9 MG/DL (1.8-2.4); POTASSIUM SERUM 3.9 MEQ/L (3.5-5.1); SODIUM LEVEL 144 MEQ/L (136-145)
[2020-12-17] MEDS: HumaLOG INSULIN (NovoLOG) PER UNIT SC SCH ×4 (07:30→20:44)
[2020-12-17 08:00] VITALS: BP 140/79
--- NOTE | 2020-12-17 08:25 | REP ---
INDICATION: pleural effusion, abcess. COMPARISON: Comparison chest x-ray December 16, 2020. TECHNIQUE: Two views.. FINDINGS: A pleural drainage epic tail catheter remains in place on the right. Right-sided Mefetg-A-Psmp catheter is seen. Monitoring electrodes are noted. Left lung remains clear radiographically. Right paratracheal and right hilar fullness persists and there is considerable volume loss remaining in the right lung with pleural thickening diffusely. There is less pleural air in the loculated right pleural collection than was present yesterday. Otherwise unchanged. IMPRESSION: Decreased amount of pleural air adjacent to the percutaneous catheter in the right chest. Otherwise unchanged from the previous day.. <Electronically signed by Herbie Cosme > 12/17/20 [id number]
[2020-12-17] MEDS: guaiFENesin ER 600 MG TAB PO SCH ×2 (09:09→20:41)
[2020-12-17] MEDS: DOCUSATE SODIUM 100MG CAPSULE PO SCH ×2 (09:09→20:41)
[2020-12-17] MEDS: VITAMIN D 1,000 INTERNATIONAL UNITS TABLET PO SCH (09:09)
[2020-12-17] MEDS: MOM 30ML SUSPENSION UDC PO SCH (09:09)
[2020-12-17] MEDS: SERTRALINE 100 MG TAB PO SCH (09:10)
[2020-12-17] MEDS: PANTOPRAZOLE 40MG TAB (PROTONIX) PO SCH (09:10)
--- NOTE | 2020-12-17 09:58 | IPNPDOC ---
Text Note Date of Service The patient was seen on 12/17/20. NOTE Subjective: Patient is a 50-year-old male who presented to the ER at the direction of his internal medicine nurse after he was found to have right-sided pleural effusion on chest x-ray. Patient was recently admitted to [facility] from 11/21 to 11/25. Patient presented with shortness of breath and was found to have right-sided pneumonia with likely abscess collection. It was decided that patient will continue with antibiotics and no drainage was pursued for the high risk of broncho-pleural fistula formation. Instead. Patient was given a course of IV Zosyn, followed by ceftriaxone and was eventually transitioned to Levaquin orally on discharge. On arrival to ER patient had CTA imaging completed in the ER that had revealed evidence of R lung abscess and empyema. Hospitalist service was called for further evaluation and treatment. Patient was seen and examined at the bedside. Currently patient sitting up at the edge of the bed, appears to be comfortable. Reports that he feels better than he did before. Patient denies any chest pain, palpitations or cough. Reports that her shortness of breath has improved. Denies any nausea, vomiting, abdominal pain, diarrhea, or discomfort with urination. Objective: Vitals (See below) General: Patient is sitting at the edge of the bed, appears to be comfortable, is awake, alert and oriented to person, place and time HEENT: NC, AT CVS: +S1S2 Lungs: Air entry appears to be fair, however, diminished on the right lung field. No appreciated wheezing, crackles or rhonchi Abdomen: Again, his abdomen is soft, slightly obese, nondistended, without tenderness Extremities: Lower extremities do not reveal any pitting edema Imaging: CXR 12/15: Increasing opacities in the right hemithorax as above. CXR 12/15: Right hilar and mediastinal adenopathy persists. There is evidence of significant atelectasis in the right lower lobe. Right pleural effusion. Cephalization of the pulmonary vasculature visible on the left. CTA 12/15: No CT evidence of pulmonary embolism. Fluid collection in the right lower lobe, unchanged in size when compared to the prior study. New loculated right pleural fluid collection is quite extensive and could represent empyema. Extensive right lower lobe consolidative opacity surrounding the fluid collection. Increased right upper lobe consolidative opacity. Increased size of mediastinal adenopathy as discussed above. Proximal esophagus is moderately dilated, therefore I suspect some degree of esophageal obstruction by the posterior mediastinal adenopathy. CXR 12/16: Status post right pleural drainage catheter placement. Improved pleural thickening in the right lateral chest with some air in the pleural space. No complication seen. Otherwise unchanged. CXR 12/17: Decreased amount of pleural air adjacent to the percutaneous catheter in the right chest. Otherwise unchanged from the previous day.. Assessment and plan: Shortness of breath / Productive cough - likely 2/2 multifactorial etiology - R sided effusion - possibly 2/2 malignancy, possibly 2/2 infectious etiology - Patient has Stage IV Squamous cell lung cancer on palliative chemotherapy - Patient had recently received antibiotics for a right-sided pulmonary abscess thought to be 2/2 Pneumococcus - Blood cultures 12/15: Negative at 24 hours - Pleural fluid culture pending - PCT at 0.09 - c/w Mucinex / Incentive spirometry / Acapella - c/w Ceftriaxone; s/p Zosyn and Vancomycin (Antibiotic day #3) - s/p IV fluids - Cardiothoracic surgery and ID on consultation; appreciate their input - Possibly 2/2 Atrial fibrillation with RVR - No chest pain or palpitations - Remains hemodynamically stable / HR has normalized - c/w Metoprolol with holding parameters ; will transition to Metoprolol succinate within 24 hours - Will continue to hold Eliquis (resume within 24-48 hours) - Possibly 2/2 symptomatic anemia - Hg on admission lower than baseline in the past - s/p 2 units PRBC - No evidence of bleeding - Hg remains stable Stage IV ([id number]) Squamous Cell Lung CA - on Palliative chemotherapy with Dr. Zofia langford - See above NIDDM2 - c/w ISS DLP - c/w Simvastatin History of nicotine dependence - Quit smoking 2 years ago Depression - c/w Sertraline DVT prophylaxis - c/w TEDs/Sequentials (Will resume Eliquis within 24-48 hours) Disposition: - Plan for outpatient IV antibiotics - Anticipate DC home with Ceftriaxone VS,Fishbone, I+O VS, Fishbone, I+O Laboratory Tests 12/17/20 04:45 Vital Signs Date Time Temp Pulse Resp B/P (MAP) Pulse Ox O2 Delivery O2 Flow Rate FiO2 12/17/20 08:00 96.6 85 18 140/79 (99) 93 Room Air I&O- Last 24 Hours up to 6 AM 12/17/20 06:00 Intake Total 600 ml Output Total 1430 ml Balance -830 ml MICHELLE WOLFF MD Dec 17, 2020 09:58
[2020-12-17 10:00] VITALS: BP 142/88
--- NOTE | 2020-12-17 10:54 | CR ---
CONSULTATION DATE: 12/16/2020 REASON FOR CONSULTATION: The patient is seen at the request of Dr. Oneil of the hospitalist service for a pleural effusion and shortness of breath. 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 He had postobstructive consolidation of the right lower lobe at that time. His story starts in and around the end of 2018, when in the first part of August 2019, he developed hemoptysis. Prior to that, he had always had a cough but he was a smoker of two packs per day of Cait's. At the time, he was able to ascend steps and do all other activities of living, but was getting somewhat short of breath ascending one flight of stairs. He was also having hemoptysis. He has been treated by oncology and radiation. His systemic therapy included Keytruda along with carboplatin and paclitaxel. He then underwent radiation. His original pathology showed him to have a 20% PD-L1 expression with a low probability of microsatellite instability and was negative for BRAF. He was hospitalized earlier last month with what looked to be other lung abscess or necrotic tumor with an overlying pneumonia with positive blood cultures for Streptococcus pneumonia. He was discharged on levofloxacin after a course of ceftriaxone. He has become more short of breath over the past few days, but he has his same cough with clear sputum production. He does get short of breathing doing daily activities of daily living and even walking around his house to go to the bathroom. There is no dysphagia. He denies fevers, chills, or sweats. PAST MEDICAL HISTORY: 1. Diabetes. 2. Depression. 3. Tobacco abuse. 4. Atrial fibrillation now presents on Eliquis. PAST SURGICAL HISTORY: Right-sided port placement. ALLERGIES: None. HOME MEDICATIONS: 1. Eliquis 2.5 mg b.i.d. 2. Glipizide 5 mg q. day. 3. Melatonin 10 mg q. h.s. 4. Metformin 1000 mg b.i.d. 5. Zoloft 100 mg q. day. 6. Simvastatin 10 mg q. h.s. 7. Incruse Ellipta 62.5 one puff q. day. HABITS: He used to smoke one and a half to two packs of Cait's per day. He used to drink, but stopped in 2019. He does not use illicit drugs. TRAVEL HISTORY: He was born in [place] OCCUPATIONAL HISTORY: He used to work at [id number]. There is no convincing asbestos exposure. He has a positive travel history to the [facility] [place] along with the [place] and [place]. He has one dog a yorkie. No birds or cats. FAMILY HISTORY: Significant for his father dying of pancreatic cancer, his mother dying of uterine cancer, and his sister dying of an unknown cancer with pneumonia. REVIEW OF SYSTEMS: Eyes: Denies diplopia, prior jaundice, or amaurosis fugax. Nose without epistaxis. Mouth: Missing his upper teeth. Respiratory: See HPI. Cardiac: Denies prior myocardial infarctions. Has atrial fibrillation. Denies orthopnea or paroxysmal nocturnal dyspnea. Denies peripheral edema. GI: Has diarrhea, but no nausea, vomiting, or constipation. Without melena, hematochezia, or hematemesis. : Without dysuria, hematuria, or prior renal stones. Endocrine without thyroid disease, but the above diabetes. Neurologic: Denies paresthesias, paralysis, or prior seizures. Psychiatric: Has depression being treated with Zoloft. PHYSICAL EXAMINATION: GENERAL APPEARANCE: Well-developed and well-nourished black male slow to answer questions and much less alert than when I first met him in 2019. VITAL SIGNS: Temperature 96.0 with a heart rate of 85 in atrial fibrillation with a respiratory rate of 24 without the use of accessory muscles who is 95% saturated on room air and whose blood pressure is 129/84. HEENT: Head normocephalic. Eyes: Pupils equal and reactive to light. Extraocular movements intact. Sclerae nonicteric. Nose without deformity. Mouth is edentulous on the upper plate. Has multiple missing teeth in his lower jaw. NECK: Supple. There is no jugular venous distention. No subcutaneous emphysema. Trachea is midline. I cannot feel any lymphadenopathy nor is there thyromegaly. He has 2+ carotid upstrokes without bruits. There is an internal jugular port in place, which is palpable in the neck. LUNGS: Show markedly decreased breath sounds on the right side with a dull percussion note throughout the entire lower half of the right hemithorax. I do not hear E:A egophony. Right lung shows scattered rhonchi and rales, which do not all clear with coughing. CARDIAC: Without murmurs, clicks, gallops, or rubs. I cannot feel his PMI. S1, S2 are normal. ABDOMEN: Soft and nontender. Bowel sounds are positive. There is no hepatosplenomegaly. No CVA tenderness. EXTREMITIES: Show no pretibial edema. No calf tenderness. No differential swelling of the upper extremities. SKIN: Warm, dry, and perfuse without cyanosis or mottling including that of the nail beds and knees. NEUROLOGIC: Shows II through XII. Normal gross motor. Gross sensation intact. Gait is not tested. Psychiatric shows him to be awake and alert, but somewhat slow to answer questions. DIAGNOSTIC INVESTIGATIONS: His white count today is 17.4 with a hemoglobin and hematocrit of 9.6 and 31.2, platelets of 462,000. Differential shows 68% neutrophils, 11% lymphocytes, 9% monocytes. There are no immature forms and no toxic granulations reported. His chemistries show a marginally low potassium at 3.4 with the remainder of his electrolytes normal with a BUN and creatinine of 8 and 1.0. Glucose is 124 with a calcium of 8.7 and a corresponding albumin of 2.8. Troponins are all less than 0.02. Magnesium is 1.7. His PT/INR are 14.4 and 1.1 respectively. He is COVID negative. His chest x-ray shows a complete opacity in the right lower hemithorax. His CT scan done under angiographic protocol does not show a pulmonary embolism. There is a large rounded mass intraparenchymal in the right lower lobe, which is surrounded by a pleural collection laterally. The intraparenchymal hypodense area was also seen on a CT of 10/17/2020. This was also again repeated on 11/21/2020. At that time, I was informally consulted and advised the medical service not to drain that intraparenchymal collection as it represented a lung mass or a necrotic tumor and doing so would only create a bronchopleural fistula. As he had infective symptoms, I chose to call it a lung abscess and treated with antibiotics. This CT scan of that hypodense area, i.e. abscess or necrotic tissue is still present. There is no pericardial effusion. Liver has a smooth contour. I see no lesions. His adrenals have a normal configuration. IMPRESSION: 1. Stage IV squamous cell carcinoma of the lung. 2. Right lower lobe lung abscess or necrotic mass. 3. New pleural effusion. 4. Diabetes. 5. Depression. 6. Atrial fibrillation. 7. 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 PLAN AND DISCUSSION: He is already on vancomycin and ceftriaxone as his antibiotics. No microbiology has been grown out since 11/21 when he grew out Streptococcus pneumoniae in a blood culture. I do not see where a sputum culture has been sent. I will have the pleural collection drained with a pigtail catheter by radiology. I have again counseled the medical service not to drain the abscess and/or necrotic mass as it will just create a bronchopleural fistula, which would never close. If it were not for his stage IV squamous cell carcinoma and a convincing diagnosis of a lung abscess, which did not respond to antibiotics, the only surgical option would be resection, which is not possible in his situation. Surgical interventions for lung abscesses were common in the 1930s, but since the admin of antibiotics almost all lung abscesses respond. This one does not look as if it has responded and I am therefore thinking that this may represent a necrotic squamous cell carcinoma rather than an actual lung abscess. [facility] DAVID HOSPITALRoxane
--- NOTE | 2020-12-17 11:31 | IPN ---
PROGRESS NOTE DATE: 12/17/2020 SUBJECTIVE: Mr. Suresh underwent a pigtail catheter insertion into the pleural collection yesterday. He states that he feels much better and he has been breathing better. Only 100 mL was withdrawn of thick viscous material. OBJECTIVE: VITAL SIGNS: Show a T-max of 96.6 with a heart rate that ranges between 73 and 85 in a sinus rhythm. Respiratory rate of 18 to 22 without the use of accessory muscles. He was 93% to 99% saturated on room air with blood pressure ranging between 140/79 to 133/88. INTAKE AND OUTPUT: Over the past 24 hours has been recorded as 2200 in and 1800 out for a positivity of 400 mL. He has put out 100 mL out the chest catheter and 30 mL in the last 12 hours. He weighs 96.7 kg today compared to 94.9 kg yesterday. RESPIRATORY: His lungs show decreased breath sounds on the right side with a dull percussion note on the right side. He has normal vesicular sounds on the left side. Percussion note is full to the diaphragm on the left side. CARDIAC: Without murmurs, clicks, gallops, or rubs. I cannot feel his PMI. S1 and S2 are normal. ABDOMEN: Soft and nontender. Bowel sounds are positive. There is no hepatomegaly. No CVA tenderness. EXTREMITIES: Show no pretibial edema. No calf tenderness. No differential swelling of the upper extremities. SKIN: Warm, dry, and perfused without cyanosis or mottling, including that of the nail beds and knees. NECK: Supple. There is no jugular venous distention. No subcutaneous emphysema. Trachea is midline. MOUTH: Shows the mucous membranes to be pink and moist. Lips and gums without lesions and no thrush. EYES: Show his pupils equal and reactive. Extraocular movements are intact. Sclerae nonicteric. NEUROLOGIC: Shows II through XII intact. Normal gross motor, gross sensation intact. Gait is not tested. PSYCHIATRIC: Shows him to be awake, alert, and oriented x3 with appropriate mood and affect and conversational. DIAGNOSTIC STUDIES: His white count today is down to 15.6 with a hemoglobin and hematocrit of 9.7 and 31.5 unchanged from yesterday with a platelet count of 500,000. Differential shows 56% neutrophils, 12% lymphocytes, 9% monocytes, and 20% eosinophils. His chest x-ray shows the catheter in place and it is improved from the portable x-ray of 12/15/2020. There seems to be a little bit more expansion of the left upper lobe on today's chest x-ray. IMPRESSION: 1. Stage IV squamous cell carcinoma. 2. Prior atrial fibrillation on Eliquis. 3. Lung abscess or necrotic tumor right lower lobe. 4. Pleural effusion now drained. 5. Depression. 6. Diabetes. 7. 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 LDH could not be determined and the cell count could not be undertaken secondary to the viscous nature of the flood. Nevertheless by chemistries, this looks to be exudative and highly infective or highly malignant from the extreme hypoglycemia. We will await pathology on the fluid. Bacteriology shows no organisms, but with lots of white cells. I am not sure whether this represents a highly malignant exudative pleural effusion or an empyema. My same quandary is in characterizing the intraparenchymal hypodense region of the right lower lobe. It could either represent a lung abscess or a necrotic tumor. Squamous cell carcinomas are certainly well known to have central necrosis. Nevertheless, I would maintain antibiotics on him. Will continue the chest catheter for at least another 24 hours. [facility]D
--- NOTE | 2020-12-17 12:15 | CR ---
CONSULTATION DATE: 12/16/2020 REASON FOR CONSULTATION: I was asked to consult by Dr. Jolly Oneil for evaluation of lung abscess in a patient who had pneumococcal pneumonia in November. HISTORY OF PRESENT ILLNESS: Tomer is a 50-year-old black gentleman with a history of stage IV, poorly differentiated squamous cell carcinoma diagnosed in August of 2019. The patient follows up with Dr. Armijo and had failed multiple previous treatment including pembrolizumab four cycles that was stopped in March of 2020. Then he was switched to just docetaxel and Cyramza and he currently was on Navelbine. The patient was hospitalized for three days in November with pneumococcal bacteremia and received IV Rocephin that was later switched to levofloxacin for the patient to continue a two week course at home. He was not hypoxic. He was having symptoms of cough and shortness of breath. The patient also was having his 50th birthday and did not want to stay any longer in longer in the hospital. He finished the two week course. At home, he had a persistent cough but denied any fever, chills, no nausea, vomiting or diarrhea, no pleuritic chest pain. He denied any recurrence of his fever which had in previous admission. He was seen by Dr. Shaw in the office who had done a chest x-ray and recommended his admission for right lung pleural effusion that needed drainage. PAST MEDICAL HISTORY: 1. Stage IV squamous cell carcinoma, palliative chemotherapy. 2. Atrial fibrillation on Eliquis. 3. Noninsulin dependent diabetes. 4. Dyslipidemia. 5. Nicotine dependence. 6. Depression. PAST SURGICAL HISTORY: Right chest port placement. ALLERGIES: No known drug allergies. MEDICATIONS: 1. Pantoprazole 40 mg p.o. daily. 2. Milk of Magnesia 30 mg p.o. daily. 3. Docusate 100 mg p.o. b.i.d. 4. Vancomycin 1 gm IV q.12 hours. 5. Percocet 1-2 tablets q.4 p.r.n. 6. Zosyn 3.375 gm IV q.6 hours. 7. Mucinex 600 mg p.o. b.i.d. 8. Zocor 10 mg p.o. q.h.s. 9. Metoprolol 25 mg p.o. q.6 hours. 10. Insulin sliding scale. 11. Tylenol p.r.n. LABORATORY DATA: White count 17.4, hemoglobin 9.6, hematocrit 31.2, platelets 462, 60% neutrophils, 11% lymphocytes, 10% monocytes, 16% eosinophils. Sodium 141, potassium 3.4, chloride 106, bicarb 26, BUN 8, creatinine 1, glucose 124, calcium 8.7, magnesium 1.7, lactic acid 1.9. CPK 67, procalcitonin 0.___, TSH 1.2. Fluid aspirated today had a glucose of less than 1 which is usually consistent with an empyema. It was too thick to get a pH or a cell count. Fluid albumin 0.7, amylase 70, cholesterol less than 50, triglycerides 38. It was described as turbid. Cultures are pending. Gram stain has many white cells, moderate red cells, no organisms. His anaerobic culture is pending. On November 21 on previous admission, he had two sets of positive blood cultures with Streptococcus pneumoniae with penicillin RAMIN of 0.5, ceftriaxone RAMIN of 0.25. Blood cultures on November 22 were negative and 12/15 two sets were negative. SARS-CoV-2, influenza A and B, RSV negative. MRCA screen done on November 22 from previous admission was negative. IMAGING: CT angiogram showed no evidence of pulmonary embolism, fluid collections, the right lobe unchanged in size from prior. New loculated right pleural fluid collection is quite extensive and could represent empyema. Extensive right lower consolidation opacity surrounding the fluid collection. Increased size of mediastinal adenopathy. PHYSICAL EXAMINATION: He is a healthy-looking black man in no acute distress. Temperature is 97.1, pulse 97, respirations 18, blood pressure 13/97, O2 sat 98% on room air. Heart: Normal S1, S2 , distant, no murmurs, rubs or gallops appreciated. Neck: Adenopathy, submandibular felt especially on the right side. Oropharynx is clear. He has multiple teeth missing. No thrush, no lesions. Lungs: Diminished breath sounds at the right lung shelter to audible sounds at the upper lobe. Left lung clear. No wheezes, rales or rhonchi. Abdomen: Soft, nontender, no hepatosplenomegaly. Extremities: No clubbing, cyanosis or edema, no calf tenderness. Neurologic exam: Alert and oriented x3. Motor strength is normal. Affect is slightly depressed. The patient does not want to do home IV antibiotics. He does not feel he is comfortable with it and does not think his would be doing it either. IMPRESSION: 50-year-old black gentleman with stage IV squamous cell carcinoma who has had pneumococcal pneumonia in November and has a large empyema and lung abscess in spite of treatment with two weeks of levofloxacin. The patient had a thoracentesis today. Cultures are pending but this is mostly likely going to be pneumococcal pneumonia with empyema. PLAN: Discontinue IV vancomycin. The patient had a negative MRSA screen last admission. Discontinue IV Zosyn, start Rocephin 2 gm IV daily. Access with [id number] for IV antibiotic at home. Start the teaching process on how to do home IV antibiotic after discussion with . The patient is reluctant about home IV antibiotic as I do not think he understands what the process means and he seems scared. The case has been discussed with Dr. Oneil who agrees with the plan and his nurse, Veronika who will help him with the teaching of his [id number]. EMLA cream will be placed to access his port as he has refused his IV access today.
[2020-12-17 16:00] VITALS: BP 128/78
[2020-12-17] MEDS: cefTRIAXone SOD 2 GM in D5W MINI-BAG PLUS 50 ML IV SCH (16:07)
[2020-12-17 20:00] VITALS: BP 137/95
[2020-12-17] MEDS: SIMVASTATIN 10 MG TAB PO SCH (20:42)
[2020-12-18] VITALS: BP 151/97
[2020-12-18] MEDS: LEVALBUTEROL 1.25 MG/0.5 ML CONCENTRATE NEB NEB SCH ×4 (01:16→19:52)
[2020-12-18] MEDS: KETOROLAC 30 MG/ML 1ML VIAL IV SCH ×4 (03:29→20:23)
[2020-12-18 04:00] VITALS: BP 142/94
[2020-12-18 06:04] LABS: BASO # 0.1 10^3/uL (0.0-0.2); BASO % 0.4 % (0.0-1.0); HEMATOCRIT 30.2 % (42.0-52.0); HEMOGLOBIN 9.1 g/dl (13.5-17.5); LYMPH # 1.6 10^3/uL (1.5-5.0); LYMPH % 11.4 % (24.0-44.0); MEAN CORPUSCULAR HEMOGLOBIN 27.2 pg (27.0-33.0); MEAN CORPUSCULAR HGB CONC 30.1 g/dl (32.0-36.5); MEAN CORPUSCULAR VOLUME 90.1 fl (80.0-96.0); MONO # 1.3 10^3/uL (0.0-0.8); MONO % 8.9 % (2.0-8.0); NEUTROPHILS % 57.3 % (36.0-66.0); PLATELET COUNT, AUTOMATED 531 10^3/uL (150-450); RED BLOOD COUNT 3.35 10^6/uL (4.30-6.10)
[2020-12-18] MEDS: METOPROLOL TART 25 MG TABLET PO SCH (06:05)
[2020-12-18 06:30] LABS: BLOOD UREA NITROGEN 10 MG/DL (7-18); CALCIUM LEVEL 8.2 MG/DL (8.5-10.1); CARBON DIOXIDE LEVEL 28 MEQ/L (21-32); CHLORIDE LEVEL 105 MEQ/L (98-107); CREATININE FOR GFR 0.99 MG/DL (0.70-1.30); GLOMERULAR FILTRATION RATE > 60.0 (>56); GLUCOSE, FASTING 151 MG/DL (70-100); MAGNESIUM LEVEL 1.8 MG/DL (1.8-2.4); SODIUM LEVEL 141 MEQ/L (136-145)
[2020-12-18 06:44] LABS: EOS % 21.4 % (0.0-3.0)
[2020-12-18 08:00] VITALS: BP 124/78
--- NOTE | 2020-12-18 08:14 | REP ---
INDICATION: pleural effusion, abcess. COMPARISON: Comparison chest x-ray 17 December 2020. TECHNIQUE: Two view chest... FINDINGS: Right-sided [id number] catheter remains in place. A right pleural drainage pigtail catheter is again seen at right mid lung field anterolaterally. Extensive pleural thickening persists in the right chest with the marked volume loss and right paratracheal and right perihilar adenopathy. The left lung remains clear. IMPRESSION: No significant change from yesterday's radiograph. Right pleural drainage catheter remains in place.. <Electronically signed by Herbie Cosme > 12/18/20 [id number]
[2020-12-18] MEDS: HumaLOG INSULIN (NovoLOG) PER UNIT SC SCH ×4 (08:32→20:22)
[2020-12-18] MEDS: SERTRALINE 100 MG TAB PO SCH (08:33)
[2020-12-18] MEDS: VITAMIN D 1,000 INTERNATIONAL UNITS TABLET PO SCH (08:33)
[2020-12-18] MEDS: guaiFENesin ER 600 MG TAB PO SCH ×2 (08:33→20:22)
[2020-12-18] MEDS: DOCUSATE SODIUM 100MG CAPSULE PO SCH ×2 (08:33→20:22)
[2020-12-18] MEDS: PANTOPRAZOLE 40MG TAB (PROTONIX) PO SCH (08:33)
[2020-12-18] MEDS: MOM 30ML SUSPENSION UDC PO SCH (09:00)
[2020-12-18] MEDS ORDERED: ALTEPLASE 2MG/2ML VIAL XX ONE (09:45)
--- NOTE | 2020-12-18 10:10 | REP ---
INDICATION: pleural effusion. COMPARISON: Comparison CT study 15 December 2020.. TECHNIQUE: Helical scanning is acquired. 3 mm axial images are generated. Coronal and sagittal MPR and coronal MIP images are generated. FINDINGS: Percutaneously placed pigtail catheter is seen in the right mid anterolateral pleural space. This portion of the right pleural space is improved and decompressed. Pigtail catheter loop appears well positioned within it. At the base, the previously noted low-density necrotic appearing lesion persists, approximately 7.5 cm in greatest diameter. There is a mediastinal bulky adenopathy again noted. There is adenopathy in the epicardial fat to the right of midline as before. There is nodular pleural thickening on the right in the fissures. A 0.9 cm parenchymal nodule is seen in the right lung apex. There are scattered subcentimeter pulmonary nodules in the left lung. The thoracic esophagus is somewhat dilated with air and fluid. This appears to be related to the middle mediastinal/subcarinal bulky adenopathy. IMPRESSION: Improvement noted post drainage of loculated right pleural collection. Evidence of metastatic malignancy. Evidence of esophageal obstruction. <Electronically signed by Herbie Cosme > 12/18/20 [id number]
--- NOTE | 2020-12-18 10:12 | IPNPDOC ---
Text Note Date of Service The patient was seen on 12/18/20. 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 Patient was recently admitted to [facility] from 11/21 to 11/25. Patient presented with shortness of breath and was found to have right-sided pneumonia with likely abscess collection. It was decided that patient will continue with antibiotics and no drainage was pursued for the high risk of broncho-pleural fistula formation. Instead. Patient was given a course of IV Zosyn, followed by ceftriaxone and was eventually transitioned to Levaquin orally on discharge. On arrival to ER patient had CTA imaging completed in the ER that had revealed evidence of R lung abscess and empyema. Hospitalist service was called for further evaluation and treatment. Patient was seen and examined at the bedside. Patient seen sitting up eating breakfast, does not appear to be in any acute distress. Reports some discomfort around the catheter site. Denies any shortness of breath or cough. Has not experience any abdominal pain, diarrhea, or discomfort with urination. Objective: Vitals (See below) General: Patient is sitting up eating breakfast appears to be comfortable, in no acute distress, oriented to person, place and time HEENT: NC, AT CVS: +S1S2 Lungs: Diminished air entry at right lung base. No wheezing, crackles, rhonchi Abdomen: Soft, rotund, obese, nondistended, nontender Extremities: Edema is not appreciated of his lower extremities Imaging: CXR 12/15: Increasing opacities in the right hemithorax as above. CXR 12/15: Right hilar and mediastinal adenopathy persists. There is evidence of significant atelectasis in the right lower lobe. Right pleural effusion. Cephalization of the pulmonary vasculature visible on the left. CTA 12/15: No CT evidence of pulmonary embolism. Fluid collection in the right lower lobe, unchanged in size when compared to the prior study. New loculated right pleural fluid collection is quite extensive and could represent empyema. Extensive right lower lobe consolidative opacity surrounding the fluid collection. Increased right upper lobe consolidative opacity. Increased size of mediastinal adenopathy as discussed above. Proximal esophagus is moderately dilated, therefore I suspect some degree of esophageal obstruction by the posterior mediastinal adenopathy. CXR 12/16: Status post right pleural drainage catheter placement. Improved pleural thickening in the right lateral chest with some air in the pleural space. No complication seen. Otherwise unchanged. CXR 12/17: Decreased amount of pleural air adjacent to the percutaneous catheter in the right chest. Otherwise unchanged from the previous day.. CXR 12/18: No significant change from yesterday's radiograph. Right pleural drainage catheter remains in place.. Assessment and plan: Shortness of breath / Productive cough - likely 2/2 multifactorial etiology - R sided effusion - possibly 2/2 malignancy, possibly 2/2 infectious etiology - Patient has Stage IV Squamous cell lung cancer on palliative chemotherapy - Patient had recently received antibiotics for a right-sided pulmonary abscess thought to be 2/2 Pneumococcus - Blood cultures 12/15: Negative at 48 hours - Pleural fluid culture 12/16: Aerobic and anaerobic cultures are negative - PCT at 0.09 - c/w Mucinex / Incentive spirometry / Acapella - c/w Ceftriaxone; s/p Zosyn and Vancomycin (Antibiotic day #4) - s/p IV fluids - Cardiothoracic surgery and ID on consultation; appreciate their input - plan for CT chest today - Possibly 2/2 Atrial fibrillation with RVR - No chest pain or palpitations - Remains hemodynamically stable / HR has normalized - c/w Metoprolol with holding parameters ; will transition to Metoprolol succinate tonight - Will continue to hold Eliquis (Will resume once catheter is removed) - Possibly 2/2 symptomatic anemia - Hg on admission lower than baseline in the past - s/p 2 units PRBC - No evidence of bleeding - Hg remains stable Stage IV ([id number]) Squamous Cell Lung CA - on Palliative chemotherapy with Dr. Zofia langford - See above NIDDM2 - c/w ISS DLP - c/w Simvastatin History of nicotine dependence - Quit smoking 2 years ago Depression - c/w Sertraline DVT prophylaxis - c/w TEDs/Sequentials (Will resume Eliquis once catheter is removed) Disposition: - Plan for outpatient IV antibiotics - Anticipate DC home with Ceftriaxone VS,Fishbone, I+O VS, Fishbone, I+O Laboratory Tests 12/18/20 05:27 Vital Signs Date Time Temp Pulse Resp B/P (MAP) Pulse Ox O2 Delivery O2 Flow Rate FiO2 12/18/20 08:00 96.2 95 19 124/78 (93) 96 Room Air I&O- Last 24 Hours up to 6 AM 12/18/20 06:00 Intake Total 1350 ml Output Total 582 ml Balance 768 ml MICHELLE WOLFF MD Dec 18, 2020 10:12
[2020-12-18 12:00] VITALS: BP 142/88
--- NOTE | 2020-12-18 13:07 | IPN ---
PROGRESS NOTE DATE: 12/18/2020 SUBJECTIVE: Mr. Suresh states he is feeling quite well today. He walked down to x-ray. He does complain of shortness of breath. He has a cough, but it is nonproductive. OBJECTIVE: VITAL SIGNS: Show a T-max of 96.7 with a heart rate that ranges between 95 and 77 in sinus rhythm. Respiratory rate of 18 to 19 without the use of accessory muscles who was 94% to 96% saturated on room air and whose blood pressure is ranging between 124/78 to 151/97. INTAKE AND OUTPUT: Over the past 24 hours has been recorded as 1050 in and 785 out for a positivity of 265 mL. He has put 85 mL out of the pigtail catheter. Weight today is 97.5 kg compared to 96.7 kg yesterday. RESPIRATORY: He has decreased breath sounds on the right side; however, I do not detect surprisingly rales, rhonchi, or wheezing. I do not even hear E:A egophony. The left side shows normal vesicular sounds. Percussion note is full to the diaphragm on the left and dull at the right. CARDIAC: Without murmurs, clicks, gallops, or rubs. I cannot feel his PMI. S1 and S2 are normal. ABDOMEN: Soft and nontender. Bowel sounds are positive. There is no hepatomegaly. No CVA tenderness. EXTREMITIES: Show no pretibial edema. No calf tenderness. No differential swelling of the upper extremities. SKIN: Warm, dry, and perfused without cyanosis or mottling, including that of the nail beds and knees. NECK: Supple. There is no jugular venous distention. No subcutaneous emphysema. Trachea is midline. MOUTH: Shows the mucous membranes to be pink and moist. Lips and gums without lesions and no thrush. EYES: Show his pupils equal and reactive. Extraocular movements are intact. Sclerae nonicteric. NEUROLOGIC: Shows II through XII intact. Normal gross motor, gross sensation intact. Gait is not tested. PSYCHIATRIC: Shows him to be awake, alert, and oriented x3 with appropriate mood and affect and conversational. LABORATORY DATA: His white count today is 14.0 slightly down from 15.6 yesterday. Hemoglobin and hematocrit are 9.1 and 30.2 respectively essentially unchanged from yesterday with platelets of 531,000 and stable. Differential shows 57% neutrophils, 11% lymphocytes, and 8% monocytes. He has 21% eosinophils. His electrolytes are normal with a BUN and creatinine of 10 and 0.99. Glucose 151 with a calcium of 8.2. IMAGING DATA: His chest x-ray today shows the same opacity on the right side, which occupies more than half of the chest. Catheter looks to be in good place. As I had trouble interpreting the chest x-ray, I obtained a CT scan to see how well the pleural fluid was drained. The pleural fluid collection is showing better, but not completely resolved. There is pleural thickening in and around the effusion cavity. The hypodense lesion consistent either with tumor necrosis or lung abscess is still present. I am starting to favor that this is tumor necrosis rather than an abscess per se. Pathology is still pending on the fluid. IMPRESSION: 1. Stage IV squamous cell carcinoma. 2. Prior atrial fibrillation on Eliquis. 3. Lung abscess or necrotic tumor right lower lobe. 4. Pleural effusion now drained. 5. Depression. 6. Diabetes. 7. 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 I do think that is the large hypodense region in the right lower lobe and it is probably going to be tumor necrosis rather than a lung abscess. His pleural fluid, however, certainly looks infected by chemistries reading very hypoglycemic and exudative. The cultures both aerobic and anaerobic show no growth, however. That does not really surprise me considering that he has been on antibiotics for quite a long time. DORITA
[2020-12-18] MEDS: PERCOCET 5MG/325MG TAB PO PRN (13:30)
[2020-12-18 16:00] VITALS: BP 132/82
[2020-12-18] MEDS: cefTRIAXone SOD 2 GM in D5W MINI-BAG PLUS 50 ML IV SCH (17:39)
[2020-12-18] MEDS: METOPROLOL SUCC (TopROL XL) 50MG **XL** TAB PO SCH (18:11)
[2020-12-18 20:00] VITALS: BP_SYST 128; BP_SYST 158; BP_DIAS 59; BP_DIAS 99
[2020-12-18] MEDS: SIMVASTATIN 10 MG TAB PO SCH (20:21)
[2020-12-19] VITALS: BP 138/96
[2020-12-19] MEDS: PERCOCET 5MG/325MG TAB PO PRN (00:21)
[2020-12-19] MEDS: LEVALBUTEROL 1.25 MG/0.5 ML CONCENTRATE NEB NEB SCH ×4 (01:18→20:42)
[2020-12-19] MEDS: KETOROLAC 30 MG/ML 1ML VIAL IV SCH ×4 (03:00→20:43)
[2020-12-19 04:00] VITALS: BP 140/97
[2020-12-19 04:52] LABS: BASO # 0.1 10^3/uL (0.0-0.2); BASO % 0.5 % (0.0-1.0); EOS # 3.1 10^3/uL (0.0-0.5); HEMOGLOBIN 9.4 g/dl (13.5-17.5); LYMPH # 2.3 10^3/uL (1.5-5.0); LYMPH % 15.3 % (24.0-44.0); MEAN CORPUSCULAR HEMOGLOBIN 27.2 pg (27.0-33.0); MEAN CORPUSCULAR HGB CONC 30.3 g/dl (32.0-36.5); MEAN CORPUSCULAR VOLUME 89.9 fl (80.0-96.0); MONO # 1.2 10^3/uL (0.0-0.8); MONO % 7.9 % (2.0-8.0); NEUTROPHILS # 8.2 10^3/uL (1.5-8.5); NEUTROPHILS % 54.9 % (36.0-66.0); PLATELET COUNT, AUTOMATED 525 10^3/uL (150-450); RED BLOOD COUNT 3.45 10^6/uL (4.30-6.10); WHITE BLOOD COUNT 14.9 10^3/uL (4.0-10.0)
[2020-12-19 05:06] LABS: EOS % 20.9 % (0.0-3.0)
[2020-12-19 05:17] LABS: BLOOD UREA NITROGEN 10 MG/DL (7-18); CALCIUM LEVEL 8.5 MG/DL (8.5-10.1); CARBON DIOXIDE LEVEL 26 MEQ/L (21-32); CHLORIDE LEVEL 106 MEQ/L (98-107); GLOMERULAR FILTRATION RATE > 60.0 (>56); GLUCOSE, FASTING 104 MG/DL (70-100); MAGNESIUM LEVEL 1.7 MG/DL (1.8-2.4); POTASSIUM SERUM 3.9 MEQ/L (3.5-5.1); SODIUM LEVEL 142 MEQ/L (136-145)
[2020-12-19] MEDS: NORCO, ANEXSIA 5/325MG TABLET (HYDROcodone/ACETAMINOPHEN) PO PRN (06:22)
[2020-12-19] MEDS ORDERED: MAG SULF 1GM/100ML (MAG RUN) 1 GM in IV 1 EA IV ONE (07:00)
[2020-12-19 08:00] VITALS: BP 138/84
--- NOTE | 2020-12-19 08:12 | REP ---
INDICATION: pleural effusion, abcess COMPARISON: 12/18/2020 TECHNIQUE: PA and lateral. FINDINGS: Right-sided pleuroparenchymal changes and left perihilar/infrahilar airspace disease relatively unchanged compared to prior examination. Left cardiac border appears normal. No pneumothorax. [id number] with tip in the SVC/right atrium unchanged. Skeletal structures intact. IMPRESSION: No significant change from prior examination. <Electronically signed by Marlon Eastman > 12/19/20 0837
[2020-12-19] MEDS: SERTRALINE 100 MG TAB PO SCH (08:45)
[2020-12-19] MEDS: guaiFENesin ER 600 MG TAB PO SCH ×2 (08:45→20:41)
[2020-12-19] MEDS: METOPROLOL SUCC (TopROL XL) 50MG **XL** TAB PO SCH ×2 (08:45→20:42)
[2020-12-19] MEDS: DOCUSATE SODIUM 100MG CAPSULE PO SCH ×2 (08:45→20:41)
[2020-12-19] MEDS: VITAMIN D 1,000 INTERNATIONAL UNITS TABLET PO SCH (08:45)
[2020-12-19] MEDS: HumaLOG INSULIN (NovoLOG) PER UNIT SC SCH ×4 (08:45→20:43)
[2020-12-19] MEDS: MOM 30ML SUSPENSION UDC PO SCH (08:45)
[2020-12-19] MEDS: PANTOPRAZOLE 40MG TAB (PROTONIX) PO SCH (08:46)
--- NOTE | 2020-12-19 11:12 | ECHO ---
DATE OF PROCEDURE: 12/16/2020 Age: 50 Gender: Male REFERRING PHYSICIAN: Jolly Oneil M.D. INDICATION: Dyspnea, unspecified. MEASUREMENTS: 2D Measurements: Left atrium 3.1 cm Aortic root 3.2 cm Intraventricular septum 1.34 cm Posterior wall 1.25 cm Left ventricle diastole 4.4 cm Inferior vena cava 1.6 cm Doppler Measurements: No aortic regurgitation No aortic stenosis Aortic valve velocity 113 cm/s LVOT velocity 82.2 cm/s Trace mitral regurgitation No mitral stenosis Mitral E velocity 84.8 cm/s Mitral A velocity 54.8 cm/s Mitral deceleration time 103 msec No tricuspid regurgitation No pulmonic regurgitation Pulmonary artery acceleration time 124 msec suggestive of normal PA systolic pressure. MITRAL ANNULAR TISSUE DOPPLER E prime septal 8.5 cm/s, E prime lateral 9.0 cm/s DESCRIPTION: Rhythm was sinus. This was a moderately technically difficult echocardiogram. The study was performed with the patient supine and with a chest tube in situ. This was a 2D, M-mode, color flow Doppler, and pulsed wave Doppler examination including mitral annular tissue Doppler. CONCLUSIONS: 1. Bilateral pleural effusions. 2. Small pericardial effusion, which measured 9 mm over the basal lateral RV free wall 5 mm over the basal posterior wall of the left ventricular. No diastolic chamber collapse. No stranding or masses were seen within the pericardial effusion. No diastolic chamber collapse. No significant respiratory variation of intracardiac velocities. 3. Mild concentric left ventricular hypertrophy. Normal regional LV wall motion and wall thickening. Normal LV systolic function. LVEF 60% by visual estimate. Normal LV diastolic function. 4. Suggestive of normal pulmonary artery systolic pressure. 5. Otherwise normal appearing echocardiogram Doppler findings. MTDD
--- NOTE | 2020-12-19 11:57 | IPNPDOC ---
Text Note Date of Service The patient was seen on 12/19/20. NOTE Subjective: Patient is a 50-year-old male who presented to the ER at the direction of his research specialist after he was found to have right-sided pleural effusion on chest x-ray. Patient was recently admitted to [facility] from 11/21 to 11/25. Patient presented with shortness of breath and was found to have right-sided pneumonia with likely abscess collection. It was decided that patient will continue with antibiotics and no drainage was pursued for the high risk of broncho-pleural fistula formation. Instead. Patient was given a course of IV Zosyn, followed by ceftriaxone and was eventually transitioned to Levaquin orally on discharge. On arrival to ER patient had CTA imaging completed in the ER that had revealed evidence of R lung abscess and empyema. Hospitalist service was called for further evaluation and treatment. Patient was seen and examined at the bedside. Currently patient denies any significant pain, reports some discomfort around the pigtail catheter site. Denies any shortness of breath or significant cough, has not spent any nausea, vomiting, belly pain, diarrhea, or discomfort with urination. Objective: Vitals (See below) General: Patient is sitting up at the edge of the bed on the phone with his ,. Comfortable, is awake and alert and oriented 3 HEENT: Normocephalic and atraumatic CVS: +S1S2 Lungs: Diminished lung sounds at right lung base. No evidence of wheezing, crackles or rhonchi Abdomen: Without distention or tenderness. No guarding, rigidity or rebound Extremities: No edema Imaging: CXR 12/15: Increasing opacities in the right hemithorax as above. CXR 12/15: Right hilar and mediastinal adenopathy persists. There is evidence of significant atelectasis in the right lower lobe. Right pleural effusion. Cephalization of the pulmonary vasculature visible on the left. CTA 12/15: No CT evidence of pulmonary embolism. Fluid collection in the right lower lobe, unchanged in size when compared to the prior study. New loculated right pleural fluid collection is quite extensive and could represent empyema. Extensive right lower lobe consolidative opacity surrounding the fluid collection. Increased right upper lobe consolidative opacity. Increased size of mediastinal adenopathy as discussed above. Proximal esophagus is moderately dilated, therefore I suspect some degree of esophageal obstruction by the posterior mediastinal adenopathy. CXR 12/16: Status post right pleural drainage catheter placement. Improved pleural thickening in the right lateral chest with some air in the pleural space. No complication seen. Otherwise unchanged. CXR 12/17: Decreased amount of pleural air adjacent to the percutaneous catheter in the right chest. Otherwise unchanged from the previous day.. CXR 12/18: No significant change from yesterday's radiograph. Right pleural drainage catheter remains in place. CXR 12/19: No significant change from prior examination. Assessment and plan: Shortness of breath / Productive cough - likely 2/2 multifactorial etiology - R sided effusion - possibly 2/2 malignancy, possibly 2/2 infectious etiology - Patient has Stage IV Squamous cell lung cancer on palliative chemotherapy - Patient had recently received antibiotics for a right-sided pulmonary abscess - likely 2/2 Pneumococcus (Based on prior blood cultures) - Blood cultures 12/15: Negative at 72 hours - Pleural fluid culture 12/16: Aerobic and anaerobic cultures are negative - PCT at 0.09 - c/w Mucinex / Incentive spirometry / Acapella - c/w Ceftriaxone; s/p Zosyn and Vancomycin (Antibiotic day #5) - s/p IV fluids - Cardiothoracic surgery and ID on consultation; appreciate their input; anticipate removal of catheter today and DC home tomorrow - Working on establishing home infusion of Ceftriaxone (2g IV x 3 weeks) via R sided chest port - Possibly 2/2 Atrial fibrillation with RVR - No chest pain or palpitations - Remains hemodynamically stable / HR has normalized - c/w Metoprolol with holding parameters ; will transition to Metoprolol succinate tonight - Will resume Eliquis tonight (Once catheter is removed) - Possibly 2/2 symptomatic anemia - Hg on admission lower than baseline in the past - s/p 2 units PRBC - No evidence of bleeding - Hg remains stable Stage IV ([id number]) Squamous Cell Lung CA - on Palliative chemotherapy with Dr. Zofia langford - See above NIDDM2 - c/w ISS DLP - c/w Simvastatin History of nicotine dependence - Quit smoking 2 years ago Depression - c/w Sertraline DVT prophylaxis - c/w TEDs/Sequentials (Will resume Eliquis once catheter is removed) Disposition: - Plan for outpatient IV antibiotics; anticipate DC home with Ceftriaxone infusion - Likely discharge tomorrow a.m. VS,Fishbone, I+O VS, Fishbone, I+O Laboratory Tests 12/19/20 04:15 Vital Signs Date Time Temp Pulse Resp B/P (MAP) Pulse Ox O2 Delivery O2 Flow Rate FiO2 12/19/20 08:45 96 138/84 12/19/20 08:00 97.3 18 98 Room Air I&O- Last 24 Hours up to 6 AM 12/19/20 06:00 Intake Total 780 ml Output Total 946 ml Balance -166 ml MICHELLE WOLFF MD Dec 19, 2020 11:57
[2020-12-19 12:00] VITALS: BP 120/73
[2020-12-19] MEDS: cefTRIAXone SOD 2 GM in D5W MINI-BAG PLUS 50 ML IV SCH (15:59)
[2020-12-19 16:00] VITALS: BP 125/93
--- NOTE | 2020-12-19 16:44 | RO ---
OPERATIVE NOTE DATE OF OPERATION: 12/18/2020 PREPROCEDURE DIAGNOSES: 1. Loculated pleural effusion. 2. Empyema. POSTPROCEDURE DIAGNOSES: 1. Loculated pleural effusion. 2. Empyema. PROCEDURE: TPA pleurolysis. SURGEON: Mathew Duong M.D. ORDER MAKE UP CLERK: None. ANESTHESIA: DESCRIPTION OF PROCEDURE: The chest catheter was clamped, prepped, and draped in the usual fashion. 56 mg of tPA was instilled in 50 mL of normal saline. Catheter was clamped, and the patient was then turned from [id number] and distributed tPA. The catheter will be unclamped in four hours. The patient tolerated the procedure well.
[2020-12-19 20:00] VITALS: BP 130/73
[2020-12-19] MEDS: SIMVASTATIN 10 MG TAB PO SCH (20:42)
[2020-12-20] VITALS: BP 148/102
[2020-12-20] MEDS: LEVALBUTEROL 1.25 MG/0.5 ML CONCENTRATE NEB NEB SCH ×3 (01:56→12:38)
[2020-12-20] MEDS: KETOROLAC 30 MG/ML 1ML VIAL IV SCH ×3 (03:00→15:00)
[2020-12-20 04:00] VITALS: BP 177/105
[2020-12-20 04:45] LABS: BASO # 0.1 10^3/uL (0.0-0.2); BASO % 0.3 % (0.0-1.0); EOS # 2.9 10^3/uL (0.0-0.5); HEMATOCRIT 29.9 % (42.0-52.0); HEMOGLOBIN 9.2 g/dl (13.5-17.5); LYMPH # 1.9 10^3/uL (1.5-5.0); LYMPH % 13.3 % (24.0-44.0); MEAN CORPUSCULAR HEMOGLOBIN 27.4 pg (27.0-33.0); MEAN CORPUSCULAR HGB CONC 30.8 g/dl (32.0-36.5); MONO # 1.3 10^3/uL (0.0-0.8); NEUTROPHILS # 8.3 10^3/uL (1.5-8.5); NEUTROPHILS % 56.9 % (36.0-66.0); PLATELET COUNT, AUTOMATED 538 10^3/uL (150-450); RED BLOOD COUNT 3.36 10^6/uL (4.30-6.10); WHITE BLOOD COUNT 14.6 10^3/uL (4.0-10.0)
[2020-12-20 05:03] LABS: BLOOD UREA NITROGEN 9 MG/DL (7-18); CALCIUM LEVEL 8.8 MG/DL (8.5-10.1); CARBON DIOXIDE LEVEL 27 MEQ/L (21-32); CHLORIDE LEVEL 108 MEQ/L (98-107); CREATININE FOR GFR 0.77 MG/DL (0.70-1.30); GLOMERULAR FILTRATION RATE > 60.0 (>56); GLUCOSE, FASTING 112 MG/DL (70-100); MAGNESIUM LEVEL 1.8 MG/DL (1.8-2.4); POTASSIUM SERUM 4.1 MEQ/L (3.5-5.1); SODIUM LEVEL 143 MEQ/L (136-145)
[2020-12-20 07:57] VITALS: BP 144/84
--- NOTE | 2020-12-20 08:14 | REP ---
INDICATION: pleural effusion, abcess COMPARISON: 12/19/2020 TECHNIQUE: PA and lateral. FINDINGS: Right-sided pleuroparenchymal changes along with pigtail catheter remain essentially unchanged. Left hemithorax is relatively clear although minimal basilar atelectasis cannot be excluded. Visualized portions of the cardiac silhouette are stable/normal. [id number] again identified with tip in the right atrium. Skeletal structures are intact. IMPRESSION: No significant change from prior examination. <Electronically signed by Marlon Eastman > 12/20/20 [id number]
[2020-12-20] MEDS: DOCUSATE SODIUM 100MG CAPSULE PO SCH (08:15)
[2020-12-20] MEDS: HumaLOG INSULIN (NovoLOG) PER UNIT SC SCH ×2 (08:15→12:40)
[2020-12-20] MEDS: MOM 30ML SUSPENSION UDC PO SCH (08:15)
[2020-12-20 08:16] VITALS: BP 144/84
[2020-12-20] MEDS: VITAMIN D 1,000 INTERNATIONAL UNITS TABLET PO SCH (08:16)
[2020-12-20] MEDS: METOPROLOL SUCC (TopROL XL) 50MG **XL** TAB PO SCH (08:16)
[2020-12-20] MEDS: guaiFENesin ER 600 MG TAB PO SCH (08:16)
[2020-12-20] MEDS: SERTRALINE 100 MG TAB PO SCH (08:16)
[2020-12-20] MEDS: PANTOPRAZOLE 40MG TAB (PROTONIX) PO SCH (08:16)
--- NOTE | 2020-12-20 09:42 | IPN ---
PROGRESS NOTE DATE: 12/19/2020 SUBJECTIVE: Mr. Suresh has a good result with the tPA pleurolysis. There was 217 mL removed after injection of 50 mL of normal saline with 10 mg of tPA. The whole strategy was to evacuate the possibly empyema space as much as possible. OBJECTIVE: VITAL SIGNS: Show a T-max of 97.7 with a heart rate that ranges between 90 and 96 in sinus rhythm. Respiratory rate of 17 to 20 without the use of accessory muscles who was 94% to 98% saturated on room air and whose blood pressure is ranging between 140/97 to 120/73. INTAKE AND OUTPUT: Over the past 24 hours has been recorded as 1080 in and 517 out for a positivity of 563 mL. He has put out 217 mL from the chest catheter. Weight today is 98.5 kg compared to 97.5 kg yesterday. RESPIRATORY: His lungs show markedly decreased breath sounds on the right side. Percussion note is dull at the right side. The left side showed normal vesicular sounds without wheezes, rhonchi, or rales. Percussion note is full to the diaphragm on the left. CARDIAC: Without murmurs, clicks, gallops, or rubs. I cannot feel his PMI. S1 and S2 are normal. ABDOMEN: Soft and nontender. Bowel sounds are positive. There is no hepatomegaly. No CVA tenderness. EXTREMITIES: Show trace pretibial edema. No calf tenderness. No differential swelling of the upper extremities. SKIN: Warm, dry, and perfused without cyanosis or mottling, including that of the nail beds and knees. NECK: Supple. There is no jugular venous distention. No subcutaneous emphysema. Trachea is midline. MOUTH: Shows the mucous membranes to be pink and moist. Lips and gums without lesions and no thrush. EYES: Show his pupils equal and reactive. Extraocular movements are intact. Sclerae nonicteric. NEUROLOGIC: Shows II through XII intact. Normal gross motor, gross sensation intact. Gait is not tested. PSYCHIATRIC: Shows him to be awake, alert, and oriented x3 with appropriate mood and affect and conversational. LABORATORY DATA: His white count today is 14.9 with hemoglobin and hematocrit of 9.4 and 31.1 respectively. Platelet count is 525,000 and differential shows 54% neutrophils, 15% lymphocytes, and 7% monocytes. He has 20% eosinophils. His electrolytes are normal with a BUN and creatinine of 10 and 0.90 with a glucose of 104 and a calcium of 8.5 with a magnesium of 1.7. Pathology is now reported back suspicious for malignancy with histochemical stains for p40 positive supporting possible malignancy. IMAGING DATA: His chest x-ray today is essentially unchanged from yesterday's. There is a little bit more lucency in the upper lobe. His right lower lobe is essentially consolidated. IMPRESSION: 1. Stage IV squamous cell carcinoma. 2. Prior atrial fibrillation on Eliquis. 3. Lung abscess or necrotic tumor right lower lobe. 4. Pleural effusion now drained. 5. Depression. 6. Diabetes. 7. 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 In my heart of hearts, I think this represents really necrotic tumor, which we have been calling an abscess and that the effusion is really a malignant effusion. Nonetheless, he is on antibiotics, which I think is appropriate as we are still unsure of the real etiology of this hypodense intraparenchymal collection. I will remove his pigtail catheter tomorrow. It is my understanding he is going to be going home on IV ceftriaxone. DORITA
[2020-12-20 11:50] VITALS: BP 141/101
[2020-12-20 11:51] VITALS: BP 147/94
--- NOTE | 2020-12-20 13:03 | DS.PDOC ---
Discharge Summary General Date of Admission Dec 15, 2020 at 15:31 Date of Discharge 12/20/20 Discharge Summary PROCEDURES PERFORMED DURING STAY: Thoracentesis with catheter placement (12/16/20): TECHNIQUE: The procedure was performed under the direct supervision of Dr. Cosme. The risks and benefits of the procedure were explained to the patient and informed consent was obtained. The right pleural effusion was localized using ultrasound guidance. The skin was prepped and draped in a sterile fashion. 1% lidocaine was used as a local anesthetic. Using ultrasound guidance a 10 [place] Sk[place] APDL catheter was inserted using trocar technique. 100 cc of thick red proteinaceous fluid was withdrawn and sent to the lab for analysis. The catheter was affixed to the skin and a sterile dressing was applied. The catheter was connected to a pleura vac. The patient tolerated the procedure well and there were no immediate complications. After the appropriate amount of monitored convalescence, the patient was discharged from the department. FINDINGS: None IMPRESSION: Ultrasound-guided right thoracentesis with catheter placement. ADMITTING DIAGNOSES: R sided pleural effusion Atrial fibrillation with RVR Stage IV Squamous Cell Lung Cancer NIDDM2 DLP Nicotine dependence Depression DISCHARGE DIAGNOSES: R sided pleural effusion possibly 2/2 malignancy, possibly 2/2 infection Atrial fibrillation with RVR Stage IV Squamous Cell Lung Cancer NIDDM2 DLP Nicotine dependence Depression COMPLICATIONS/CHIEF COMPLAINT: Pneumonia Pulmonary Abscess. HISTORY OF PRESENT ILLNESS: Patient is a 50-year-old male who presented to the emergency room at the direction of his principal consultant after he was found to have right-sided pleural effusion on chest x-ray. Patient was recently admitted to [facility] from 11/21 to 11/25. Patient presented with shortness of breath and was found to have right-sided pneumonia with likely abscess collection. It was decided that patient will continue with antibiotics and no drainage was pursued for the high risk of broncho-pleural fistula formation. Instead, patient was given a course of IV Zosyn, followed by ceftriaxone and was eventually transitioned to Levaquin orally on discharge. Patient was discharged and followed up with his oncologist, Dr. Armijo on 12/15; who had recommended following up with Pulmonology. He had followed up with Dr. Shaw today and was advised to come to the ER for further evaluation. Currently patient denies any chest pain. Reports that he has been short of breath for the last 2-3 weeks since hes been discharge. This has not changed. Patient does report productive cough with thick mucus described as white and some blood-tinged denies any palpitations. Patient reports that he has not experience any fevers or chills while at home. Denies any nausea, vomiting, abdominal pain. Does report some loose stools. Denies any urinary discomfort. Patient has reported that his appetite is fairly normal and has reported some weight loss. HOSPITAL COURSE: Shortness of breath / Productive cough - likely 2/2 multifactorial etiology - R sided effusion - possibly 2/2 malignancy, possibly 2/2 infectious etiology - Patient has Stage IV Squamous cell lung cancer on palliative chemotherapy - Patient had recently received antibiotics for a right-sided pulmonary abscess - likely 2/2 Pneumococcus (Based on prior blood cultures) - Blood cultures 12/15: Negative at 72 hours - Pathology from 12/16/20 suspicious for malignancy - Pleural fluid culture 12/16: Aerobic and anaerobic cultures are negative - PCT at 0.09 - c/w Mucinex / Incentive spirometry / Acapella - c/w Ceftriaxone; s/p Zosyn and Vancomycin (Antibiotic day #6) - s/p IV fluids - Cardiothoracic surgery and ID on consultation; appreciate their input; R chest pigtal catheter removed by Dr. Duong on 12/20/20. - Per Dr. Duong, strong suspicion for empyema to be a product of necrotic tumor with a malignant effusion - Arranged home infusion of Ceftriaxone (2g IV x 3 weeks) via R sided chest port - Possibly 2/2 Atrial fibrillation with RVR - No chest pain or palpitations - Remains hemodynamically stable / HR has normalized - c/w Metoprolol with holding parameters ; transitioned to Metoprolol succinate on 12/19/20 - Will resume Eliquis 24 hours after chest tube removal - Possibly 2/2 symptomatic anemia - Hg on admission lower than baseline in the past - s/p 2 units PRBC - No evidence of bleeding - Hg remains stable Stage IV ([id number]) Squamous Cell Lung CA - on Palliative chemotherapy with Dr. Zofia Arellano fib - See above NIDDM2 - c/w ISS DLP - c/w Simvastatin History of nicotine dependence - Quit smoking 2 years ago Depression - c/w Sertraline DVT prophylaxis - c/w TEDs/Sequentials (Will resume Eliquis once catheter is removed) DISCHARGE MEDICATIONS: Please see below. ALLERGIES: Please see below. PHYSICAL EXAMINATION ON DISCHARGE: VITAL SIGNS: please see below General: NAD, comfortable HEENT: PERRLA, EOMI, sclerae clear Neck: supple, normal ROM, no JVD Respiratory: diminished breath sounds at R lung base. Otherwise no wheezing, crackles or rhonchi CVS: RRR, normal S1, S2, no murmurs Abdo: soft, no masses, no hepatosplenomegaly, BS+, no rebound tenderness Extremities: no edema LABORATORY DATA: Please see below. IMAGING: CXR 12/15: Increasing opacities in the right hemithorax as above. CXR 12/15: Right hilar and mediastinal adenopathy persists. There is evidence of significant atelectasis in the right lower lobe. Right pleural effusion. Cephalization of the pulmonary vasculature visible on the left. CTA 12/15: No CT evidence of pulmonary embolism. Fluid collection in the right lower lobe, unchanged in size when compared to the prior study. New loculated right pleural fluid collection is quite extensive and could represent empyema. Extensive right lower lobe consolidative opacity surrounding the fluid collection. Increased right upper lobe consolidative opacity. Increased size of mediastinal adenopathy as discussed above. Proximal esophagus is moderately dilated, therefore I suspect some degree of esophageal obstruction by the posterior mediastinal adenopathy. CXR 12/16: Status post right pleural drainage catheter placement. Improved pleural thic kening in the right lateral chest with some air in the pleural space. No complication seen. Otherwise unchanged. CXR 12/17: Decreased amount of pleural air adjacent to the percutaneous catheter in the right chest. Otherwise unchanged from the previous day.. CXR 12/18: No significant change from yesterday's radiograph. Right pleural drainage ca theter remains in place. CXR 12/19: No significant change from prior examination. CXR 12/20/20 FINDINGS: Right-sided pleuroparenchymal changes along with pigtail catheter remain essentially unchanged. Left hemithorax is relatively clear although minimal basilar atelectasis cannot be excluded. Visualized portions of the cardiac silhouette are stable/normal. [id number] again identified with tip in the right atrium. Skeletal structures are intact. IMPRESSION: No significant change from prior examination. PROGNOSIS: fair ACTIVITY: needs ongoing home PT DIET: consistent carbohydrate DISCHARGE PLAN: DC home with IV ceftriaxone via port x 3 weeks, home PT, close f/u with PCP 3-5 days, follow up with pulmonology (Dr. Shaw) 1-2 weeks and follow up with oncology (Dr. Armijo) 1-2 weeks. To resume eliquis on 12/21/20, 24 hours after pigtail catheter removal. DISPOSITION: . DISCHARGE INSTRUCTIONS: . Please follow-up with your primary care doctor within 3-5 days . Please follow-up with PCP within 1-2 weeks . Please taking medications as prescribed. . If you develop bleeding, chest pain, shortness of breath, seizures, nausea, fevers, or otherwise worsening of your symptoms, please call 911 or return to the nearest emergency room Additional instructions for IV infusion: - 10 cc saline flushes before and after IV antibiotic, followed by 5cc heparin lock flush 100 units/mL. - port can be used for IV antibiotics ITEMS TO FOLLOWUP ON ON OUTPATIENT: follow up with oncology, pulmonology. DISCHARGE CONDITION: [Stable]. TIME SPENT ON DISCHARGE: 35 minutes. Vital Signs/I&Os Vital Signs Date Time Temp Pulse Resp B/P (MAP) Pulse Ox O2 Delivery O2 Flow Rate FiO2 12/20/20 11:51 147/94 (111) 12/20/20 11:50 97.0 90 18 96 Room Air I&O- Last 24 Hours up to 6 AM 12/20/20 05:59 Intake Total 1060 ml Output Total 1201 ml Balance -141 ml Laboratory Data Labs 24H Laboratory Tests 2 12/19/20 16:08: Bedside Glucose (Misc Panel) 105 12/19/20 19:49: Bedside Glucose (Misc Panel) 170H 12/20/20 04:25: Immature Granulocyte % (Auto) 0.5, Neutrophils (%) (Auto) 56.9, Lymphocytes (%) (Auto) 13.3L, Monocytes (%) (Auto) 9.0H, Eosinophils (%) (Auto) 20.0H, Basophils (%) (Auto) 0.3, Neutrophils # (Auto) 8.3, Lymphocytes # (Auto) 1.9, Monocytes # (Auto) 1.3H, Eosinophils # (Auto) 2.9H, Basophils # (Auto) 0.1, Nucleated Red Blood Cells % (auto) 0.0, Anion Gap 8, Glomerular Filtration Rate > 60.0, Calcium Level 8.8, Magnesium Level 1.8 12/20/20 11:39: Bedside Glucose (Misc Panel) 115H CBC/BMP Laboratory Tests 12/20/20 04:25 FSBS Laboratory Tests Test 12/19/20 16:08 12/19/20 19:49 12/20/20 11:39 Range/Units Bedside Glucose (Misc Panel) 105 170 115 70-105 MG/DL Microbiology Microbiology 12/16/20 Acid Fast Stain, Received Pending 12/16/20 Mycobacterial Culture, Received Pending 12/16/20 Fungal Smear, Received Pending 12/16/20 Fungal Culture, Received Pending 12/16/20 Gram Stain - Final, Complete 12/16/20 Anaerobic Culture - Final, Complete 12/16/20 Body Fluid Culture - Final, Complete 12/15/20 Blood Culture - Final, Complete NO GROWTH AFTER 5 DAYS 12/15/20 Blood Culture - Final, Complete NO GROWTH AFTER 5 DAYS Discharge Medications Scheduled Apixaban (Eliquis) 2.5 Mg Tablet, 2.5 MG PO BID, (Reported) Cholecalciferol (Vitamin D3) (Vitamin D3) 1,000 Unit Tablet, 2,000 UNITS PO JONNATHAN Y, (Reported) Glipizide (Glipizide) 5 Mg Tablet, 5 MG PO DAILY, (Reported) Melatonin (Melatonin) 10 Mg Capsule, 10 MG PO QHS, (Reported) Metformin HCl (Metformin HCl) 1,000 Mg Tablet, 1,000 MG PO BID, (Reported) Sennosides/Docusate Sodium (Colace 2-in-1 Tablet) 1 Each Tablet, 1 TAB PO BID Sertraline Hcl (Zoloft) 100 Mg Tablet, 100 MG PO DAILY, (Reported) Simvastatin (Simvastatin) 10 Mg Tablet, 10 MG PO QHS, (Reported) Umeclidinium [place] (Incruse Ellipta) 62.5 Mcg Blst.w.dev, 1 PUFF INH DAILY, (Reported) Scheduled PRN Albuterol Sulfate (Albuterol Sulfate Hfa) 8.5 Gm Hfa.aer.ad, 2 PUFFS INH Q4-6HP PRN for SOB/WHEEZING, (Reported) Mag Hydrox/Aluminum Hyd/Simeth (Mylanta Maximum Strength Liq) 355 Ml Oral.susp, 15 ML PO QID PRN for INDIGESTION, (Reported) Ondansetron HCl (Ondansetron HCl) 8 Mg Tablet, 1 TAB PO Q8HP PRN for NAUSEA OR VOMITING Prochlorperazine Maleate (Prochlorperazine Maleate) 10 Mg Tablet, 10 MG PO Q6H PRN for NAUSEA OR VOMITING Allergies Coded Allergies: No Known Allergies (Unverified , 08/14/19) SHARLA ROBERTS MD Dec 20, 2020 13:02
[2020-12-20] MEDS ORDERED: MUCI600T31 PO (13:19)
[2020-12-20] MEDS ORDERED: METO1TAB7 PO (13:19)
[2020-12-20] MEDS ORDERED: CEFT2INJ4 IV (13:19)
[2020-12-20] MEDS ORDERED: ALBU8.5H INH (13:19)
[2020-12-20] MEDS ORDERED: DOK1CAP7 PO (13:19)
[2020-12-20] MEDS ORDERED: HYDR-3715 PO ×2 (13:19→13:20)
[2020-12-20] MEDS ORDERED: ELIQ2.5T PO (13:19)
[2020-12-20] MEDS ORDERED: ACET1TAB55 PO (13:19)
[2020-12-20] MEDS ORDERED: PANT40TA29 PO (13:19)
[2020-12-20] MEDS: cefTRIAXone SOD 2 GM in D5W MINI-BAG PLUS 50 ML IV SCH ×2 (15:13→15:15)
--- NOTE | 2020-12-21 10:47 | IPN ---
PROGRESS NOTE DATE: 12/20/2020 SUBJECTIVE: Mr. Suresh is sitting up comfortably and breathing well. He is not complaining of pain. His chest catheter has drained 101 mL overnight and 5 mL in the past eight hours. OBJECTIVE: VITAL SIGNS: Show a T-max of 97.3 with a heart rate that ranges between 87 and 97 in a sinus rhythm. Respiratory rate of 18 to 20 without the use of accessory muscles. Who was 93% to 98% saturated on room air and whose blood pressure is ranging between 141/101 to 177/105. RESPIRATORY: He has markedly decreased breath sounds on the right side with a dull percussion note on the right side almost all the way up the chest. Left side shows normal vesicular sounds without wheezes, rhonchi, or rales. Percussion note is full to the diaphragm on the left. CARDIAC: Without murmurs, clicks, gallops, or rubs. I cannot feel his PMI. S1 and S2 are normal. ABDOMEN: Soft and nontender. Bowel sounds are positive. There is CVA tenderness and no hepatosplenomegaly. EXTREMITIES: Show no pretibial edema. No calf tenderness. No differential swelling of the upper extremities. SKIN: Warm, dry, and perfused without cyanosis or mottling, including that of the nail beds and knees. NECK: Supple. There is no jugular venous distention. No subcutaneous emphysema. Trachea is midline. MOUTH: Shows the mucous membranes to be pink and moist. Lips and gums without lesions and no thrush. EYES: Show his pupils equal and reactive. Extraocular movements are intact. Sclerae nonicteric. NEUROLOGIC: Shows II through XII intact. Normal gross motor, gross sensation intact. Gait is not tested. PSYCHIATRIC: Shows him to be awake, alert, and oriented x3 with appropriate mood and affect and conversational. LABORATORY DATA: His white count today is 14.6 with a hemoglobin and hematocrit of 9.2 and 29.9 slightly down from 9.4 and 31.0 yesterday. Platelet count is 538,000 and differential shows 56% neutrophils, 13% lymphocytes, 9% monocytes, and 20% eosinophils. The eosinophil count has been fairly consistent. His chemistries today show normal electrolytes with a BUN and creatinine of 9 and 0.77, glucose of 112, and a calcium of 8.8 with a magnesium of 1.8. Pathology today has been returned suspicious for malignancy. There are rare atypical cells. IMAGING DATA: His chest x-ray is essentially unchanged showing complete opacity of the lower hemithorax on the right. There is some aeration in the right upper lobe. IMPRESSION: 1. Stage IV squamous cell carcinoma. 2. Prior atrial fibrillation on Eliquis. 3. Lung abscess or necrotic tumor right lower lobe. 4. Pleural effusion now drained. 5. Depression. 6. Diabetes. 7. 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 I have not objection to him being discharged today. I again think that the findings on the CT scan represent necrotic tumor rather than an actual lung abscess. I have failed to discuss the eosinophilia throughout his course. 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 Paraneoplastic eosinophilia can certainly be seen in lung cancers, although usually are seen in lymphomas; probably results from tumor production of eosinophilic growth factors which can to production of hormones that are seen in paraneoplastic syndromes. This requires no treatment. MTDD
== END 2020-12-20 15:44 | disposition home health service (06) | DRG 181 ==
LOC: M ED 11:11 → M ED INP 15:31 → M PCU 16:42
PROVIDERS: ADMIT Internal Medicine; ATTEND Family Medicine
PROC: 30233N1 Transfusion of Nonautologous Red Blood Cells into Peripheral Vein, Percutaneous Approach (ICD-10-PCS; 2020-12-15)
PROC: 0W9930Z Drainage of Right Pleural Cavity with Drainage Device, Percutaneous Approach (ICD-10-PCS; principal; 2020-12-16 15:00)
PROC: 3E033GC Introduction of Other Therapeutic Substance into Peripheral Vein, Percutaneous Approach (ICD-10-PCS; 2020-12-18)
DX: C34.91 Malignant neoplasm of unspecified part of right bronchus or lung (principal); J91.0 Malignant pleural effusion; J82.89 Other pulmonary eosinophilia, not elsewhere classified; I48.91 Unspecified atrial fibrillation; E11.9 Type 2 diabetes mellitus without complications; K22.2 Esophageal obstruction; F32.9 Major depressive disorder, single episode, unspecified; Z87.891 Personal history of nicotine dependence; Z20.822 Contact with and (suspected) exposure to COVID-19; Z79.899 Other long term (current) drug therapy

== ENCOUNTER → 2020-12-15 | Outpatient (CLI) | payer MEDICARE, MEDICAID ==
[~2020-12-15] MED LIST changes: +CVS10CAP8 PO; +D31000TA2 PO; +ELIQ2.5T PO; +LEVO500T3 PO; +MYLA1SUS PO; +OMEP-218 PO
--- NOTE | 2020-12-15 09:22 | REP ---
INDICATION: MALIGNANT NEOPLASM OF LOWER LOBE, RIGHT BRONCHUS OR LUNG COMPARISON: 11/22/2020 TECHNIQUE: PA and lateral. FINDINGS: Increasing opacification of the right hemithorax including large pleural effusion and underlying areas of consolidation and/or mass appear increased from prior examination. Left hemithorax is clear. [id number] identified with tip in the SVC. No obvious cardiomegaly. IMPRESSION: Increasing opacities in the right hemithorax as above. <Electronically signed by Marlon Eastman > 12/15/20 0918
== END ==
LOC: M RAD 08:23
PROVIDERS: ATTEND Internal Medicine Pulmonary Disease
DX: C34.31 Malignant neoplasm of lower lobe, right bronchus or lung (principal); J90 Pleural effusion, not elsewhere classified; Z97.8 Presence of other specified devices

== ENCOUNTER → 2021-01-03 | Outpatient (CLI) | payer MEDICARE, MEDICAID ==
[~2021-01-03] MED LIST changes: +ACET1TAB55 PO; +ALBU83IN INH; +APAP325T4 PO; +CEFD250S26 PO; +CEFT2INJ4 IV; +CVS10CAP8 PO; +D31000TA2 PO; +DOK1CAP7 PO; +HYDR-3713 PO; +HYDR-3715 PO; +METO1TAB7 PO; +MM S100C PO; +PANT40TA29 PO; +SENN-23 PO
--- NOTE | 2021-01-03 10:28 | REPPI ---
INDICATION: J86.9 EMPYEM OF RIGHT PLEURAL SPACE COMPARISON: 12/20/2020 TECHNIQUE: PA and lateral. FINDINGS: Pleuroparenchymal opacities involving the right hemithorax are essentially unchanged. Visualized bilateral aerated lung carranza are relatively clear and without obvious new acute process. [id number] again identified with tip in the SVC/right atrium. Left heart border remains stable and normal. Skeletal structures are intact. IMPRESSION: No significant change from prior examination. <Electronically signed by Marlon Eastman > 01/03/21 1027
== END ==
LOC: M PLAIMG 09:41
PROVIDERS: ATTEND Internal Medicine Infectious Disease
DX: J86.9 Pyothorax without fistula (principal); Z97.8 Presence of other specified devices
CPT/HCPCS: 71046; G0463

== ENCOUNTER 2021-01-19 12:09 | Inpatient (IN) | payer MEDICARE, MEDICAID ==
[~2021-01-19] VITALS: Ht 177.8 cm; Wt 88.8 kg
[~2021-01-19 12:09] MED LIST changes: -ALBU83IN INH; -APAP325T4 PO; -CEFD250S26 PO; -HYDR-3713 PO; -MM S100C PO; -SENN-23 PO
[2021-01-19 13:05] VITALS: BP 136/93
[2021-01-19] MEDS ORDERED: DEXTROSE 50% 50 ML SYRINGE IV PRN (13:40)
[2021-01-19] MEDS ORDERED: GLUCAGON INJ 1MG VIAL SC PRN (13:40)
[2021-01-19] MEDS ORDERED: GLUCOSE 4GM CHEW TABLET PO PRN (13:40)
[2021-01-19] MEDS: ALBUTEROL SULFATE 2.5 MG/0.5 ML INH NEB SOLN INH SCH ×2 (14:00→20:01)
[2021-01-19] MEDS ORDERED: APAP325T4 PO (14:24)
[2021-01-19] MEDS ORDERED: MM S100C PO (14:24)
[2021-01-19] MEDS ORDERED: METO1TAB7 PO (14:24)
[2021-01-19] MEDS ORDERED: ALBU8.5H INH (14:24)
[2021-01-19] MEDS ORDERED: HYDR-3713 PO (14:24)
[2021-01-19] MEDS ORDERED: PANT40TA29 PO (14:24)
[2021-01-19] MEDS ORDERED: MUCI600T31 PO (14:24)
[2021-01-19] MEDS ORDERED: ELIQ2.5T PO (14:24)
[2021-01-19] MEDS ORDERED: ALBU83IN INH (14:25)
[2021-01-19] MEDS ORDERED: SENN-23 PO (14:26)
--- NOTE | 2021-01-19 14:36 | HPEPDOC ---
General Date of Admission Jan 19, 2021 at 12:43 Date of Service: Jan 19, 2021 Attending Physician: JATIN CORDERO MD Chief Complaint The patient is a 50-year-old male admitted with a reason for visit of Dysphagia. Source: Patient Exam Limitations: No limitations History of Present Illness Subjective: HPI: Patient is a 50 year old male with PMH of stage IV squamous cell lung cancer, atrial fibrillation on Eliquis, and diabetes mellitus who presents with chief complaint of dysphagia onset one week ago. Pt states that "meats get stuck in my throat and I have to drink sprite or water to get it down". He otherwise has been able to swallow soups and liquids, such as water and broth, without difficulty. Admits to occasional pain with swallowing but no choking or halitosis. Admits to nausea, vomiting, mild abd pain, diarrhea, weight loss, productive cough with clear sputum, SOB, and voice change. He states that he has had diarrhea since his last admission here on 12/15/20. His SOB and cough has not gotten any worse since his last admission. Denies any weakness, fatigue, edema, fever, chills. Pt is on palliative chemotherapy, which has been put on hold. No hx of radiation to that area. Pt was at Dr. Le's office today when he had complaints of dysphagia and was directly admitted to the hospital for further work up due to concerns of progressive dysphagia and decreased oral intake. Pt was recently admitted here on 12/15/20 due to pleural effusion that was found to be a lung abscess vs necrotic lung mass. He had a chest tube placed by Dr. Duong during that visit. His CT on 12/18/20 showed improvement noted post drainage of loculated R pleural collection with evidence of metastatic malignancy and esophageal obstruction. He was started and discharged on IV Ceftriaxone. He has been following up with ID regarding this abscess vs necrotic mass. Home Medications Scheduled Albuterol Sulf (Albuterol Sulfate) 2.5 Mg/3 Ml Vial.neb, 2.5 MG INH TID, (Reported) Apixaban (Eliquis) 2.5 Mg Tablet, 2.5 MG PO BID, (Reported) Cholecalciferol (Vitamin D3) (Vitamin D3) 1,000 Unit Tablet, 2,000 UNITS PO MARE LY, (Reported) Docusate Sodium (Stool Softener) 100 Mg Capsule, 100 MG PO BID, (Reported) Glipizide (Glipizide) 5 Mg Tablet, 5 MG PO DAILY, (Reported) Metformin HCl (Metformin HCl) 1,000 Mg Tablet, 1,000 MG PO BID, (Reported) Metoprolol Succinate (Metoprolol Succinate) 50 Mg Tab.er.24h, 50 MG PO BID, (Reported) Pantoprazole Sodium (Pantoprazole Sodium) 40 Mg Tablet.dr, 40 MG PO QHS, (Reported) Sennosides/Docusate Sodium (Senna-S Tablet) 1 Each Tablet, 1 TAB PO BID, (Reported) Sertraline Hcl (Zoloft) 100 Mg Tablet, 100 MG PO DAILY, (Reported) Simvastatin (Simvastatin) 10 Mg Tablet, 10 MG PO QHS, (Reported) Umeclidinium [place] (Incruse Ellipta) 62.5 Mcg Blst.w.dev, 1 PUFF INH DAILY, (Reported) Scheduled PRN Acetaminophen (Acetaminophen) 325 Mg Tablet, 650 MG PO Q4H PRN for PAIN / FEVER, (Reported) Albuterol Sulfate (Albuterol Sulfate Hfa) 8.5 Gm Hfa.aer.ad, 2 PUFFS INH Q4H PRN for SOB/COUGH, (Reported) Guaifenesin (Mucinex) 600 Mg Tab.er.12h, 600 MG PO BID PRN for COUGH, (Reported) Hydrocodone/Acetaminophen (Hydrocodone-Acetamin 5-325 mg) 1 Each Tablet, 1 TAB PO Q4H PRN for PAIN, (Reported) MDD 4 Mag Hydrox/Aluminum Hyd/Simeth (Mylanta Maximum Strength Liq) 355 Ml Oral.susp, 15 ML PO QID PRN for INDIGESTION, (Reported) Melatonin (Melatonin) 10 Mg Capsule, 10 MG PO QHS PRN for SLEEP, (Reported) Allergies Coded Allergies: No Known Allergies (Unverified , 08/14/19) Past Medical History Medical History Past Medical History: Stage IV squamous cell lung carcinoma. Atrial fibrillation on Eliquis and Metoprolol. Type 2 DM. DLP. Family History Significant Family History: Cancer Social History * Smoker: former Smoker (Quit 3 years ago. Smoked 2 PPD since age 27. ), quit greater than 1 year Alcohol: occationally Drugs: marijuana (Last smoked 2 months ago. ) Pets in the home: Dog(s) Pt is currently on disability and not working. Currently lives at home with his and dog. A-FIB/CHADSVASC A-FIB History Current/History of A-Fib/PAF?: Yes Current PO Anticoag Therapy: Yes Age/Risk Factor Scoring CHADSVASC: CHADSVASC Response (Comments) Value Age Risk Factor Age < 65 years old 0 Gender Risk Factor Male 0 Hx of CHF No 0 Hx of HTN No 0 Hx of Stroke/TIA/or VTE No 0 Hx of Diabetes Yes 1 Hx of Vascular Disease No 0 Total 1 Treatment Treatment ordered: Holding Other (Holding Eliquis 2.5 mg due to EGD tomorrow. ) Reason Anticoagulant not given: Other Other reason anticoagulant not: EGD planned for tomorrow. Review of Systems Constitutional: Reports: Weight Loss; Denies: Chills, Fever, Weakness, Fatigue ENT: Reports: Dysphagia, Other Symptoms (Admits to change in voice.) Pulmonary: Reports: Dyspnea, Cough Cardiovascular: Denies: Chest Pain, Edema Gastrointestinal: Reports: Nausea, Vomiting, Abdominal Pain, Diarrhea; Denies: Constipation Genitourinary: Denies: Dysuria, Hematuria Musculoskeletal: Denies: Neck Pain Neurological: Denies: Weakness, Numbness Physical Examination General Exam: Positive: Alert, Cooperative, No Acute Distress Eye Exam: Positive: PERRLA, Conjunctiva & lids normal, EOMI; Negative: Sclera icteric ENT Exam: Positive: Atraumatic, Mucous membr. moist/pink, Pharynx Normal, Tongue Midline; Negative: Pharyngeal Edema Neck Exam: Positive: Supple Chest Exam: Positive: Clear to auscultation, Diminished (Diminished breath sounds on the R. Good breath sounds on the L. ); Negative: Rales, Rhonchi, Wheezing Heart Exam: Positive: Tachycardic, Irregular Rhythm, Normal S1, Normal S2; Negative: Gallops, Murmurs, Rubs Abdomen Exam: Positive: Normal bowel sounds, Soft; Negative: Tenderness, Hepatospenomegaly Extremity Exam: Positive: Normal pulses; Negative: Edema Skin Exam: Positive: Nl turgor and temperature Neuro Exam: Positive: Normal Speech, Strength at 5/5 X4 ext, Sensation Intact Psych Exam: Positive: Mental status NL Vital Signs Vital Signs Date Time Temp Pulse Resp B/P (MAP) Pulse Ox O2 Delivery O2 Flow Rate FiO2 3/18/21 13:05 97.6 125 18 136/93 (648) 93 Room Air Assessment/Plan Pt is a 50 year old male with PMH of stage IV squamous cell lung carcinoma, type 2 DM, atrial fibrillation on Eliquis with chief complaint of dysphagia onset 1 week ago. Pt states that he has dysphagia to solids but not liquids. Admits to occasional pain with swallowing. Pt's palliative chemotherapy currently on hold due to prior admission for lung abscess vs necrotic lung mass. No hx of radiation therapy. Pt was a direct admit for further work up from Dr. Le's office due to concerns of progressive dysphagia and decreased oral intake. #Dysphagia - Dysphagia likely 2/2 mediastinal mass/lymphadenopathy vs neuropathy due to pembrolizumab therapy vs stricture. More likely to be due to mediastinal mass due to progression of cancer. Less likely to be due to neuropathy as pt is having dysphagia only to solids. - Pt scheduled for barium swallow today at 4 pm. Barium swallow is the initial test prior to further work up of dysphagia to rule out any etiologies that may cause esophageal perforation during EGD. - Consulted general surgery, Dr. Zuluaga, about EGD. Agrees with plan for barium swallow prior to EGD tomorrow morning. Will keep pt NPO. - Will hold Eliquis due to planned EGD tomorrow to decrease risk of bleeding. - Consider CT neck and chest if EGD and barium swallow studies inconclusive. - Will have speech therapy on board to evaluate pt. #Lung abscess vs necrotic lung mass - Pt was last admitted here on Dec 15, 2020 due to possible lung abscess vs necrotic lung mass. He was started on Ceftriaxone at that time. - He is following up with ID and oncology regarding this issue. - Will continue with Ceftriaxone 2 g IV Q24H. #Stage IV squamous cell lung carcinoma - Pt is following oncology regarding this. - Will have pt f/u after discharge. #Atrial fibrillation on Eliquis - Pt has hx of atrial fibrillation with RVR. - He takes Eliquis 2.5 mg PO at home. - Will hold Eliquis today due to EGD planned for tomorrow. Will resume Eliquis after EGD. #T2DM - Discontinuing home medication glipizide and metformin. - Pt placed on sliding scale insulin with hypoglycemic holding parameters. - Will place pt on a consistent carb diet after EGD tomorrow. DVT Prophylaxis: Teds and sequentials. Holding home Eliquis due to planned EGD. Will resume Eliquis after EGD tomorrow. Disposition: Pt is getting barium swallow done today and is planned for EGD tomorrow morning. Discharge pending EGD results. Plan / VTE VTE Prophylaxis Ordered?: Yes (Teds and sequentials) GME ATTESTATION GME ATTESTATION My faculty preceptor for this patient encounter was physically present during the encounter and was fully available. All aspects of the patient interview, examination, medical decision making process, and medical care plan development were reviewed and approved by the faculty preceptor. The faculty preceptor is aware and concurs with the plan as stated in the body of this note and will attest to such by his/her cosignature. Annabel AUGUSTIN OMS-3 Jan 19, 2021 14:35
[2021-01-19] MEDS: NS 1,000 ML IV SCH (14:48)
[2021-01-19] MEDS ORDERED: ALBUTEROL 90 MCG/ACT 8GM HFA INHALER INH PRN (14:55)
[2021-01-19] MEDS ORDERED: SODIUM CHLORIDE 0.9% INJ 10 ML SYR IV PRN (14:55)
[2021-01-19 15:03] LABS: HEMATOCRIT 32.3 % (42.0-52.0); HEMOGLOBIN 9.9 g/dl (13.5-17.5); MEAN CORPUSCULAR HEMOGLOBIN 26.5 pg (27.0-33.0); MEAN CORPUSCULAR HGB CONC 30.7 g/dl (32.0-36.5); MEAN CORPUSCULAR VOLUME 86.4 fl (80.0-96.0); PLATELET COUNT, AUTOMATED 432 10^3/uL (150-450); RED BLOOD COUNT 3.74 10^6/uL (4.30-6.10); WHITE BLOOD COUNT 12.3 10^3/uL (4.0-10.0)
[2021-01-19] MEDS ORDERED: E-Z-GAS II EFFERVESCENT PACKET (SODIUM BICARB./CITRIC ACID/SIMETHICONE) As Ordered ONE (15:18)
[2021-01-19] MEDS ORDERED: E-Z-PAQUE 96% w/w SUSP 176GM BTL As Ordered ONE (15:18)
[2021-01-19] MEDS ORDERED: E-Z-HD 98% w/w 340GM SUSP BTL As Ordered ONE (15:21)
[2021-01-19 15:31] LABS: BLOOD UREA NITROGEN 7 MG/DL (7-18); CALCIUM LEVEL 10.9 MG/DL (8.5-10.1); CARBON DIOXIDE LEVEL 29 MEQ/L (21-32); CHLORIDE LEVEL 104 MEQ/L (98-107); CREATININE FOR GFR 0.57 MG/DL (0.70-1.30); GLOMERULAR FILTRATION RATE > 60.0 (>56); GLUCOSE, FASTING 93 MG/DL (70-100); POTASSIUM SERUM 3.7 MEQ/L (3.5-5.1); SODIUM LEVEL 140 MEQ/L (136-145)
[2021-01-19] MEDS: cefTRIAXone SOD 2 GM in D5W MINI-BAG PLUS 50 ML IV SCH (17:11)
[2021-01-19] MEDS: HumaLOG INSULIN (NovoLOG) PER UNIT SC SCH ×2 (17:11→20:57)
--- NOTE | 2021-01-19 17:12 | REP ---
INDICATION: dysphagia. COMPARISON: None TECHNIQUE: This procedure was performed by Kat Cassidy, [facility], under the direct supervision of Dr. Cosme. Images were reviewed with Dr. Cosme prior to dictation. Liquid barium and gas producing crystals were given in the erect position, as well as liquid barium in the prone oblique position in order to perform a double contrast esophagram examination. FINDINGS: A single view PA chest x-ray is submitted as a drafter commercial film, there is no change since the previous chest x-ray dated 01/03/2021. The oral and pharyngeal stages of deglutition did demonstrate some delay in swallowing. Once swallowed esophageal transport is prompt and efficient proximally. However the middle and distal 1/3 of the esophagus does not distend, and has a displaced and nodular appearance, most likely due to an extrinsic mass. This distal 1/3 also does not distend. There is a dilation of the proximal 3rd of the thoracic esophagus consistent with some degree of incomplete esophageal obstruction. The middle and distal 3rd of the esophagus are aperistaltic. IMPRESSION: Non-distending middle and distal thirds of the esophagus with a fixed displaced nodular appearance, most likely due to an extrinsic mass. 0.2 minutes of fluoroscopy time was utilized for this procedure. Some fluoroscopic images are performed with last image hold technology. These images require no additional radiation. <Electronically signed by Kat Cassidy > 01/19/21 165 <Electronically signed by Herbie Cosme > 01/19/21 170
[2021-01-19] MEDS: NORCO, ANEXSIA 5/325MG TABLET (HYDROcodone/ACETAMINOPHEN) PO PRN ×2 (18:12→23:36)
[2021-01-19] MEDS: PANTOPRAZOLE 40MG TAB (PROTONIX) PO SCH (20:55)
[2021-01-19] MEDS: SENOKOT S TAB PO SCH (20:56)
[2021-01-19] MEDS: DOCUSATE SODIUM 100MG CAPSULE PO SCH (20:56)
[2021-01-19] MEDS: METOPROLOL SUCC (TopROL XL) 50MG **XL** TAB PO SCH (20:56)
[2021-01-19 22:00] VITALS: BP 138/91
[2021-01-20] MEDS: NS 1,000 ML IV SCH ×2 (05:18→19:28)
[2021-01-20 06:00] VITALS: BP 144/98
[2021-01-20 06:34] LABS: HEMATOCRIT 33.9 % (42.0-52.0); HEMOGLOBIN 10.4 g/dl (13.5-17.5); MEAN CORPUSCULAR HEMOGLOBIN 26.4 pg (27.0-33.0); MEAN CORPUSCULAR HGB CONC 30.7 g/dl (32.0-36.5); PLATELET COUNT, AUTOMATED 441 10^3/uL (150-450); RED BLOOD COUNT 3.94 10^6/uL (4.30-6.10); WHITE BLOOD COUNT 12.5 10^3/uL (4.0-10.0)
[2021-01-20 06:51] LABS: BLOOD UREA NITROGEN 7 MG/DL (7-18); CALCIUM LEVEL 10.6 MG/DL (8.5-10.1); CARBON DIOXIDE LEVEL 24 MEQ/L (21-32); CHLORIDE LEVEL 106 MEQ/L (98-107); CREATININE FOR GFR 0.61 MG/DL (0.70-1.30); GLOMERULAR FILTRATION RATE > 60.0 (>56); GLUCOSE, FASTING 100 MG/DL (70-100); POTASSIUM SERUM 3.7 MEQ/L (3.5-5.1); SODIUM LEVEL 141 MEQ/L (136-145)
--- NOTE | 2021-01-20 07:11 | CR ---
CONSULTATION DATE: 01/19/2021 REASON FOR CONSULTATION: Dysphagia. HISTORY OF PRESENT ILLNESS: The patient is a 50-year-old black male who has Stage IV squamous cell carcinoma lung cancer who has had dysphagia that started about a week ago with progressive food and now even has difficulty drinking fluids. On the last admission about a month ago, he had a chest tube placed for a possible lung abscess/necrotic lung mass and was discharged home on antibiotics. He was seen in Infectious Disease today with this progressive dysphagia and was referred to the hospital for direct admission. PAST MEDICAL HISTORY: Significant for a history of Stage IV squamous cell carcinoma (did get one round of chemotherapy in November), history of atrial fibrillation on Eliquis and Metoprolol, history of diabetes mellitus, history of dyslipidemia. MEDICATIONS: 1. Albuterol. 2. Eliquis. 3. Vitamin D. 4. Stool softeners. 5. Glipizide. 6. Metformin. 7. Metoprolol. 8. Pantoprazole. 9. Senokot. 10.Zoloft. 11.Simvastatin. 12.Ellipta. PHYSICAL EXAMINATION: He is a frail 50-year-old male who looks much older than stated age. HEENT is unremarkable. He has some significant neck venous distention. No significant venous distention across his chest or upper extremities. He has no supraclavicular and no cervical adenopathy that I can appreciate. Lungs reveals breath sounds on the left side but still rhonchorous and this may be transmitted from the right side. The right side has very diminished breath sounds throughout. Heart is irregularly irregular. Abdomen is soft, nontender, nondistended. IMPRESSION/PLAN: Patient has dysphagia and obviously the question is whether the patient has external compression from increasing size of this malignancy, whether there is neurologic damage to the esophagus presenting causing a functional abnormality but at this point my recommendation is to proceed with a barium swallow to see if we have a functional issue versus truly an obstructive issue. However, I anticipate this is most likely obstructive secondary to external compression. Depending on the overall luminal size seen on barium swallow, if this is very small, he may need a percutaneous gastrostomy tube via Interventional Radiology instead of typical upper endoscopy with PEG placement. Other options also possibly include stent placement which would have to be performed by the insurance underwriter sales. Will await for the barium swallow to determine our next course of action and recommendations. I do feel it is reasonable to get another CT scan of his chest, however for further evaluation at some point and see what the status is of the malignancy, mediastinal adenopathy, etc.
[2021-01-20] MEDS: HumaLOG INSULIN (NovoLOG) PER UNIT SC SCH ×4 (07:30→20:35)
[2021-01-20] MEDS: ALBUTEROL SULFATE 2.5 MG/0.5 ML INH NEB SOLN INH SCH ×3 (07:47→20:23)
--- NOTE | 2021-01-20 08:03 | IPNPDOC ---
Text Note Date of Service The patient was seen on 01/20/21. NOTE Subjective: No acute events overnight. Pt denies any nausea, vomiting, headache, abd pain, edema, chest pain at this time. Pt c/o his chronic productive cough and SOB. No change in sensation when he is swallowing. Discussed with Dr. Zuluaga (gen surg) about EGD and possible stent placement or PEG tube placement this morning. He states that given the location and the severity of the esophageal compression by mediastinal mass, EGD, stent placement or PEG tube placement is not viable. He recommended having percutaneous PEG tube placement by IR instead. However, after discussion with Dr. Millan (IR) about this, she states that pt cannot have procedure done today due to the fact that pt is on Eliquis. She states that Eliquis must be held 48 hrs prior to procedure to decrease risk of bleeding. She recommended placing NG tube instead and have pt follow up with her outpatient on 01/31/21 for the procedure. NG tube placement was attempted but unsuccessful because we could not pass the NG tube past the area of esophageal compression. So after long discussion with Dr. Le (ID) about further plans for pt, it was agreed that pt could be discharged with PO abx, Ensure, and PO diet as tolerated as pt is still able to tolerate soft foods and liquids. As of now, the plan is to have pt discharged on PO Omnicef, Ensure, and PO diet as tolerated and have pt follow up with Dr. Millan as outpatient on 01/31/21 for percutaneous PEG tube placement. Will instruct pt to hold Eliquis 48 hrs prior to day of procedure. Pt is scheduled to visit pt today around 2 pm and we will discuss this plan with her. Objective: VITALS: See below. GENERAL: Pt is sitting up in bed. Alert and cooperative. No acute distress. HEENT: EOMI. PERRLA. Conjunctiva and lids normal. No scleral icterus. Moist mucous membranes. Posterior oropharynx patent and non-erythematous. Tongue midline with no enlargement. NECK: Cervical lymphadenopathy. Trachea midline. HEART: Tachycardic and irregularly irregular. No murmurs, rubs, or gallops appreciated. LUNGS: Inspiratory and expiratory stridor noted bilaterally. Decreased breath sounds on the R. Good air movement otherwise on the L. ABD: Abd soft and non-tender in all four quadrants. No guarding or rebound. Normoactive bowel sounds in all four quadrants. EXTREMITIES: No pitting edema appreciated to BLE. NEURO: No focal neurological deficits appreciated. PSYCH: Pt is sitting up in bed and appears depressed. Assessment/Plan: Pt is a 50 year old male with PMH of stage IV squamous cell lung carcinoma, type 2 DM, atrial fibrillation on Eliquis with chief complaint of dysphagia onset 1 week ago. Pt states that he has dysphagia to solids but not liquids. Admits to occasional pain with swallowing. Pt's palliative chemotherapy currently on hold due to prior admission for lung abscess vs necrotic lung mass. No hx of radiation therapy. Pt was a direct admit for further work up from Dr. Le's office due to concerns of progressive dysphagia and decreased oral intake. #Dysphagia - Dysphagia likely 2/2 mediastinal mass/lymphadenopathy given the non-distending middle and distal third of the esophagus with fixed nodular appearance appreciated on barium swallow. - Discussed with Dr. Zuluaga (gen surg) about EGD and possible stent placement or PEG tube placement this morning. He states that given the location and the severity of the esophageal compression by mediastinal mass, EGD, stent placement or PEG tube placement is not viable. He recommended having percutaneous PEG tube placement by IR instead. However, after discussion with Dr. Millan (IR) about this, she states that pt cannot have procedure done today due to the fact that pt is on Eliquis. She states that Eliquis must be held 48 hrs prior to procedure to decrease risk of bleeding. She recommended placing NG tube instead and have pt follow up with her outpatient on 01/31/21 for the procedure. NG tube placement was attempted but unsuccessful because we could not pass the NG tube past the area of esophageal compression. So after long discussion with Dr. Le (ID) abo ut further plans for pt, it was agreed that pt could be discharged with PO abx, Ensure, and PO diet as tolerated as pt is still able to tolerate soft foods and liquids. As of now, the plan is to have pt discharged on PO Omnicef, Ensure, and PO diet as tolerated and have pt follow up with Dr. Millan as outpatient on 01/31/21 for percutaneous PEG tube placement. Will instruct pt to hold Eliquis 48 hrs prior to day of procedure. Pt is scheduled to visit pt today around 2 pm and we will discuss this plan with her. - Will order CT neck and chest to further evaluate the progression of growth of mediastinal mass. This will allow us to have a better discussion with pt about prognosis. - Will have speech therapy on board to evaluate pt. #Lung abscess vs necrotic lung mass - Pt was last admitted here on Dec 15, 2020 due to possible lung abscess vs necrotic lung mass. He was started on Ceftriaxone at that time. - He is following up with ID and oncology regarding this issue. - Will continue with Ceftriaxone 2 g IV Q24H. #Stage IV squamous cell lung carcinoma - Pt is following oncology regarding this. - Will have pt f/u after discharge. #Depression/anxiety - Pt appears depressed and anxious at bedside on examination. Likely 2/2 adjustment disorder and dx of carcinoma. - Will continue with sertraline. #Atrial fibrillation on Eliquis - Pt has hx of atrial fibrillation with RVR. - He takes Eliquis 2.5 mg PO at home. - Will hold Eliquis today for procedure and will resume after procedure is completed. #T2DM - Discontinuing home medication glipizide and metformin. - Pt placed on sliding scale insulin with hypoglycemic holding parameters. - Will place pt on a consistent carb diet after EGD tomorrow. DVT Prophylaxis: Teds and sequentials. Disposition: Plan to discharge pt tomorrow with PO Omnicef, Ensure, and PO diet as tolerated. Will discharge tomorrow due to Ensure will requiring prior-authorization. Will discuss plans with pt when she visits him later today. VS,Fishbone, I+O VS, Fishbone, I+O Laboratory Tests 01/19/21 13:40 01/20/21 05:53 Vital Signs Date Time Temp Pulse Resp B/P (MAP) Pulse Ox O2 Delivery O2 Flow Rate FiO2 01/20/21 06:00 97.0 119 18 144/98 (113) 95 Room Air I&O- Last 24 Hours up to 6 AM 01/20/21 06:00 Intake Total 750 ml Output Total 0 ml Balance 750 ml GME ATTESTATION GME ATTESTATION My faculty preceptor for this patient encounter was physically present during the encounter and was fully available. All aspects of the patient interview, ex amination, medical decision making process, and medical care plan development were reviewed and approved by the faculty preceptor. The faculty preceptor is aware and concurs with the plan as stated in the body of this note and will attest to such by his/her cosignature. Annabel AUGUSTIN Marti-3 Jan 20, 2021 08:03
[2021-01-20] MEDS: SERTRALINE 100 MG TAB PO SCH (08:59)
[2021-01-20] MEDS: METOPROLOL SUCC (TopROL XL) 50MG **XL** TAB PO SCH ×2 (08:59→20:38)
[2021-01-20] MEDS: VITAMIN D 1,000 INTERNATIONAL UNITS TABLET PO SCH (09:00)
[2021-01-20] MEDS: DOCUSATE SODIUM 100MG CAPSULE PO SCH (09:00)
[2021-01-20] MEDS: SENOKOT S TAB PO SCH (09:00)
[2021-01-20] MEDS ORDERED: SODIUM CHLORIDE 0.9% INJ 10 ML SYR IV SCH (09:00)
[2021-01-20] MEDS ORDERED: ISOVUE-370 76% 100ML VIAL As Ordered ONE (12:21)
--- NOTE | 2021-01-20 12:38 | IPNPDOC ---
Text Note Date of Service The patient was seen on 01/20/21. NOTE Gen. surgery. Dr. Zuluaga The patient is a 50-year-old male with history of stage IV squamous cell carcinoma lung cancer admitted 01/19/21 with progressive dysphagia. Barium sw allow was requested indicating a middle and distal thirds of the esophagus with fixed displaced nodular appearance most likely due to extrinsic mass. Afebrile, VSS Sitting on side of bed, NAD. Abdomen soft, NT, ND. WBC 12.5, Hgb10.4, platelets 441. A/P History of stage IV squamous cell carcinoma lung cancer admitted 01/19/21 with progressive dysphagia. Barium swallow was requested indicating a middle and distal thirds of the esophagus with fixed displaced nodular appearance most likely due to extrinsic mass. The patient's imaging is reviewed by Dr. Zuluaga. Tentative plan is for percutaneous gastrostomy tube placement with IR today. VS,Fishbone, I+O VS, Fishbone, I+O Laboratory Tests 01/19/21 13:40 01/20/21 05:53 Vital Signs Date Time Temp Pulse Resp B/P (MAP) Pulse Ox O2 Delivery O2 Flow Rate FiO2 01/20/21 08:59 119 144/98 01/20/21 06:00 97.0 18 95 Room Air I&O- Last 24 Hours up to 6 AM 01/20/21 06:00 Intake Total 750 ml Output Total 0 ml Balance 750 ml Dania Mitchell Jan 20, 2021 12:38
--- NOTE | 2021-01-20 13:00 | REP ---
INDICATION: growing mass?. COMPARISON: No comparison soft tissue neck CT. Comparison is made with the upper most cuts of the CT studies from December 18 2020 and December 15 2020. November 21, 2020 and October 17, [address] study images are also reviewed.. TECHNIQUE: Helical scanning is acquired following the intravenous injection of 100 mL of Isovue 370. 3 mm axial images re-formatted. Coronal and sagittal MPR images are provided. FINDINGS: There is bilateral supraclavicular and subclavian lymphadenopathy which is progressing. The largest node is a right subclavian node which is seen just lateral to the course of the right internal jugular Oswlax-G-Cbiw catheter. This lymph node measures 3.5 x 3.0 x 2.8 cm in right to left by anteroposterior by craniocaudal dimension. On December 18 CT chest scan measured in retrospect, this lymph node measured 2.7 cm in right to left by 2.4 cm anterior to posterior. Above this there is a right supraclavicular lymph node measuring 2.7 cm in right to left dimension, 2.2 cm on December 18, 2020. There are scattered normal sized right next lymph nodes above this. On the left, there is a superior mediastinal node just anterior to the left common carotid artery which measures 1.7 cm. A left supraclavicular lymph node is seen just posterior to the left internal jugular vein. This measures 1.4 x 1.8 cm. These nodes are both larger than they were December 18, 2020. There are 2 or 3 lymph nodes in the posterior cervical chain above this on the left. The largest of these is 1.2 cm. No suprahyoid adenopathy on the left. Parotid and submandibular glands are symmetric. Thyroid lobes are unremarkable. Glottic and subglottic airway is intact. Tonsillar and peritonsillar soft tissues are unremarkable. No bony destructive lesion is seen. The upper thoracic esophagus is noted be air distended. IMPRESSION: Progressive bilateral supraclavicular and right subclavian lymphadenopathy. <Electronically signed by Herbie Cosme > 01/20/21 1257
--- NOTE | 2021-01-20 13:10 | REP ---
INDICATION: growing mass. COMPARISON: CT of the chest without IV contrast dated 12/18/2020 TECHNIQUE: Chest CT with IV contrast. FINDINGS: There is a large mass inferiorly in the right lung with a large necrotic lesion within it and extensive significantly enlarged mediastinal adenopathy extending into the dino all similar to the prior study. The previous pigtail right pleural drainage catheter has been removed. The volume of pleural fluid on the right appears decreased. The large low density necrotic area within the right lung mass today measures up to 8.5 cm AP diameter. This previously measured 7.5 cm. An air-fluid level is now identified within this necrotic area as an interval change. There is a pericardial effusion measuring 1.5 cm depth on the axial images along the posterolateral margin of the heart on the left and measuring up to 2 cm depth along the inferior margin of the heart on the coronal images. This appears to have increased from the prior study were measured up to 7 cm posterolaterally on the axial images and 1 cm inferiorly on the coronal images. Dilatation of the esophagus and a small air-fluid level within the esophagus are again identified compatible with compression/obstruction, as previously, likely secondary to the large mass and bulky mediastinal adenopathy. IMPRESSION: No significant change in the large right lung mass and bulky mediastinal adenopathy. The previous pigtail pleural drainage catheter on the right has been removed. There is now an air-fluid level within the in the necrotic zone in the large right lung mass. There is a pericardial effusion as described. This appears to have increased from the prior study. Esophageal compression/obstruction is again noted. <Electronically signed by Nasir Zambrano > 01/20/21 0675
[2021-01-20 14:00] VITALS: BP 147/99
[2021-01-20] MEDS: cefTRIAXone SOD 2 GM in D5W MINI-BAG PLUS 50 ML IV SCH (14:34)
[2021-01-20] MEDS: NORCO, ANEXSIA 5/325MG TABLET (HYDROcodone/ACETAMINOPHEN) PO PRN (14:35)
--- NOTE | 2021-01-20 16:21 | CR ---
CONSULTATION DATE: 01/20/2021 Asked to consult by hospitalist for followup on right lung abscess with pneumococcal bacteremia. HISTORY OF PRESENT ILLNESS: Tomer is a 50-year-old gentleman, known to me from previous hospitalization, initially admitted on November 21 with pneumococcal bacteremia, treated with 2 weeks of oral Levaquin. The patient was readmitted on December 15 after he was evaluated by his daytime caregiver, who was concerned of an empyema. He had drainage of the pleural fluid but Dr. Duong and a chest tube. His pleural fluid cultures were negative, aerobically and anaerobically. Glucose was less than 1, but pleural fluid had suspicious malignant cells. He was treated for presumptive empyema versus a necrotic mass from his tumor with intravenous (IV) Rocephin. The patient was discharged home with a plan of 6 weeks of IV antibiotics with Rocephin 2 grams daily. His cough improved. He had no recurrent fever, but the patient developed over the past 2 weeks nausea and vomiting with severe dysphagia, difficulty swallowing. He described it mostly around the neck area. Food was getting stuck. He was vomiting at least five times a day. He was able to drink liquids. He had no fever or chills. The patient also described abdominal pain, which he thinks was hunger pain. He had no urinary symptoms. No flank pain, hematuria, upper or lower extremity weakness. His tried to get him Glucerna to feed him, but it was too expensive for her. MEDICAL HISTORY: Significant for: 1. Stage IV squamous cell carcinoma, on palliative chemotherapy. He had failed multiple previous treatment, diagnosed in August 2019. He was on pembrolizumab for a cycle, stopped in March 2020, then he was switched to docetaxel and Cyramza and currently was on Navelbine. The patient has not gotten chemotherapy in close to 2 months. 2. History of atrial fibrillation, on Eliquis. 3. Myv-Kbgmwsn-xpeaqqlzu diabetes. 4. Dyslipidemia. 5. Nicotine dependence. 6. Depression. SURGICAL HISTORY: Right chest port placement that is currently nonfunctional. ALLERGIES: No known drug allergies. MEDICATIONS: - vitamin D 2000 units daily - sertraline 100 mg by mouth daily - Colace 100 mg by mouth daily - metoprolol 50 mg by mouth twice a day - ceftriaxone 2 grams intravenous (IV) every 24 hours - Glucagon subcutaneous as needed - pantoprazole 40 mg by mouth every night SOCIAL HISTORY: He is . He lives with his . He has been on disability for the past 5 years from learning disability and back injury. He smoked. He used to work with a [employer] prior to his disability. FAMILY HISTORY: Mother with uterine cancer and father with cancer as well. REVIEW OF SYSTEMS: His major complaint is dysphagia, weight loss, about 15 pounds in 2 weeks, nausea, vomiting, and abdominal pain. He has a chronic cough, which is unchanged. Mild shortness of breath, no change. No upper or lower extremity weakness. LABORATORY DATA: White count 12.5, hemoglobin 10.4, hematocrit 33.9, platelets 441. Sodium 141, potassium 3.7, chloride 106, bicarbonate 24, BUN 7, creatinine 0.61, glucose 100, calcium 10.6. AST 15, ALT 20, alkaline phosphatase 74, total protein 8.4, albumin 2.9. No cultures were done this admission. IMAGING STUDIES: CT chest and neck were reviewed with Dr. Cosme. There is a pericardial effusion, 1.5-2 cm depth. The right lung mass is necrotic. Could be tumor necrosis. There is bulky mediastinal lymphadenopathy, which is causing esophageal obstruction. There is an air-fluid level in the necrotic zone of the large right lung mass, and there is a pericardial effusion. Esophageal compression obstruction is also noted. Neck CT showed large adenopathy, worse, including lymph node in the right subclavian area, measuring 3.5 x 3 x 2.8 cm, which is 1 cm bigger than the one done a month ago. Left supraclavicular lymph node measures 1.4 x 1.8 cm. There are posterior cervical chain lymph nodes, largest measuring about 1.2 cm. There is progressive bilateral supraclavicular and subclavian adenopathy. Esophageal x-ray showed obstruction at the mid esophagus and distal third with a displaced nodular appearance, most likely due to extrinsic mass. PHYSICAL EXAMINATION: A pleasant gentleman in no acute distress, a little discomfort due to abdominal pain. Temperature is 97.2, pulse 103, respirations 20, blood pressure 147/99, oxygen saturation 98% on room air. HEART: Normal S1, S2. No murmurs appreciated. Tachycardic. LUNGS: Diminished breath sounds on the right side with poor air entry, at least prison up the base. Could not appreciate much air movement. Left side had some inspiratory wheezes. ABDOMEN: Soft, mildly tender diffusely. Bowel sounds present. No hepatosplenomegaly. NECK: Shotty cervical adenopathy. I definitely do not appreciate large 3 cm lymph nodes that are described on his neck CT. Back: No costovertebral angle (CVA) or lumbosacral tenderness. EXTREMITIES: No clubbing, cyanosis, or edema. No calf tenderness. SKIN: Tattoo on the right leg. No rashes. Dry, healed discoloration of his distal nails. Black discoloration of the distal nail probably related to his chemotherapy. IMPRESSION: This is a 50-year-old gentleman who was treated for pneumonococcal pneumonia and bacteremia since mid November, initially treated with 3 days IV antibiotics followed by 2 weeks PO levaquin . He then developed possible empyema and lung abscess, although this could all have been also necrotic tumor mass. The patient then received 3 weeks of IV Rocephin through his port. Currently his Tfrbat-S-Spbw is not functioning, and he has difficulty swallowing with severe dysphagia from esophageal obstruction. He has been on Eliquis, ant therefore a G tube is currently on hold PLAN: Case has been discussed with Dr. Rodriguez and Dr. Cosme regarding his CT findings. Will plan to continue with IV Rocephin once he is ready for discharg he could be switched to cefdinir liquid 300 mg by mouth twice a day for 2 more weeks. He was supposed to finish his antibiotic around February 02. Encourage use of Ensure or Glucerna, one can four times a day. Probably the only thing that will be able to pass through this esophageal obstruction would be liquids until a gastrostomy is placed, if that is the patient's wish. I have also called Dr. Armijo, his oncologist, and discussed the case with him. He will review his previous treatments and CT scan findings, as the patient still wants to try and continue with chemotherapy, although it seems to me like there may not too many options left. At this point, patient is not ready for hospice care, but this will need to be addressed with his oncologist. INDUD
[2021-01-20] MEDS: PANTOPRAZOLE 40MG TAB (PROTONIX) PO SCH (20:38)
[2021-01-20 22:00] VITALS: BP 147/98
[2021-01-21] MEDS: NORCO, ANEXSIA 5/325MG TABLET (HYDROcodone/ACETAMINOPHEN) PO PRN (01:54)
[2021-01-21 06:12] VITALS: BP 150/92
[2021-01-21] MEDS: ALBUTEROL SULFATE 2.5 MG/0.5 ML INH NEB SOLN INH SCH (07:18)
[2021-01-21 07:23] LABS: HEMATOCRIT 31.2 % (42.0-52.0); HEMOGLOBIN 9.4 g/dl (13.5-17.5); MEAN CORPUSCULAR HEMOGLOBIN 26.2 pg (27.0-33.0); MEAN CORPUSCULAR HGB CONC 30.1 g/dl (32.0-36.5); MEAN CORPUSCULAR VOLUME 86.9 fl (80.0-96.0); PLATELET COUNT, AUTOMATED 390 10^3/uL (150-450); RED BLOOD COUNT 3.59 10^6/uL (4.30-6.10); WHITE BLOOD COUNT 12.1 10^3/uL (4.0-10.0)
[2021-01-21 07:42] LABS: BLOOD UREA NITROGEN 6 MG/DL (7-18); CALCIUM LEVEL 10.3 MG/DL (8.5-10.1); CARBON DIOXIDE LEVEL 24 MEQ/L (21-32); CHLORIDE LEVEL 107 MEQ/L (98-107); CREATININE FOR GFR 0.61 MG/DL (0.70-1.30); GLOMERULAR FILTRATION RATE > 60.0 (>56); GLUCOSE, FASTING 110 MG/DL (70-100); POTASSIUM SERUM 3.6 MEQ/L (3.5-5.1); SODIUM LEVEL 142 MEQ/L (136-145)
[2021-01-21] MEDS: HumaLOG INSULIN (NovoLOG) PER UNIT SC SCH (09:23)
[2021-01-21] MEDS: VITAMIN D 1,000 INTERNATIONAL UNITS TABLET PO SCH (09:23)
[2021-01-21] MEDS: SERTRALINE 100 MG TAB PO SCH (09:24)
[2021-01-21 09:25] VITALS: BP 146/91
[2021-01-21] MEDS: NS 1,000 ML IV SCH (09:25)
[2021-01-21] MEDS: METOPROLOL SUCC (TopROL XL) 50MG **XL** TAB PO SCH (09:25)
[2021-01-21] MEDS ORDERED: CEFD250S26 PO ×2 (09:45→10:56)
--- NOTE | 2021-01-21 13:32 | DS.PDOC ---
Discharge Summary General Date of Admission Jan 19, 2021 at 12:43 Date of Discharge 01/21/21 Attending Physician: SANKET BILLS MD Specialist/Consultants Involve: Nicko Zuluaga Jr Specialist/Consultants Involve Dr. Le (Infectious Disease) Discharge Summary PROCEDURES PERFORMED DURING STAY: [None]. ADMITTING DIAGNOSES: 1. Dysphagia 2. Lung Abscess vs Necrotic Lung Mass 3. Stage IV Squamous Cell Carcinoma of the Lung 4. Atrial Fibrillation 5. Diabetes Mellitus Type 2 DISCHARGE DIAGNOSES: 1. Dysphagia 2/2 extrinsic mass compression 2. Lung Abscess vs Necrotic Lung Mass 3. Stage IV Squamous Cell Carcinoma of the Lung 4. Atrial Fibrillation 5. Diabetes Mellitus Type 2 COMPLICATIONS/CHIEF COMPLAINT: Dysphagia. HISTORY OF PRESENT ILLNESS: Patient is a 50 year male with a past medical history significant for stage IV squamous cell carcinoma of the lung, atrial fibrillation on Eliquis, diabetes mellitus type 2, and recent diagnosis of right lung abscess vs necrotic lung mass with chronic right pleural effusion s/p ches t tube placement who was receiving IV ceftriaxone outpatient through Infectious disease and found to have progressive dysphagia. The patient was seen in follow- up by Infectious disease and had noted increased dysphagia to solids with a documented weight-loss of 10-15 lbs over the past 2 weeks. The patient was sent to [facility] for direct admission and evaluation of his dysphagia HOSPITAL COURSE: On presentation to [facility], patient had stated that since his previous discharge he has had noted progressively worsening dysphagia. He stated he had difficulty with swallowing solids and was only able to eat liquids such as soups. He stated that if he was to eat meat or any solid it would get stuck. He denied any feeling of choking. He denied any coughing. Given the patients clinical presentation his dysphagia was most consistent with esophageal dysphagia over oropharyngeal. Given his history of Stage IV NSSLC there was concern for likely extrinsic mass compression of his esophagus leading to dysphagia. General Surgery was contacted for recommendations as there was no GI coverage. A barium swallow was performed which demonstrated non-distended middle and distal thirds of the esophagus with a fixed displaced nodular appearance consistent with an extrinsic mass. A Chest and neck CT with IV contrast was ordered. Patient was noted to have progressive bilateral supraclavicular and right subclavian lymphadenopathy. He was noted to have an air-fluid level within the necrotic zone of the right lung mass as well as esophageal compression/obstruction. The results were discussed with the patient and his . At this points recommendations were made to have a PEG tube placed. However, this was felt to be best performed by Interventional radiology. Patient was unable to receive PEG tube placement due to having had eliquis. Patient was scheduled to have outpatient follow-up with IR on January 31 for PEG tube placement. In the interm an attempt to pass an NG tube was attempted although unsuccessful. Patient was noted to be able to tolerate a liquid diet. Plan was discussed to have patient discharged home on a liquid diet with Ensure supplementation until he gets his PEG tube placed outpatient through interventional radiology. Additionally patient was seen by his Oncologist who will look at other viable palliative options with consideration of possible radiation therapy and/or consideration for esophageal stenting through GI. Regarding his lung abscess patient had previously been receiving IV Rocephin. His infusaport was noted to not function properly. This was discussed with infectious disease with recommendations to change to oral cefdinir suspension 300mg BID for 14 days DISCHARGE MEDICATIONS: Please see below. ALLERGIES: Please see below. PHYSICAL EXAMINATION ON DISCHARGE: VITAL SIGNS: Please see below. GENERAL: Awake, alert, and oriented. Does not appear in acute distress. Lying in bed comfortably HEENT: Atraumatic, normocephalic. Eyes are nonicteric. Trachea is midline. There is lymphadenopathy. Patient has stridor with hoarsness to his voice NECK: Supraclavicular lymphadenopathy. No appreciable cervical chain lymphadenopathy or axillary lymphadenopathy CARDIOVASCULAR EXAMINATION: Normal S1. S2. Regular rate and rhythm. No clicks, rubs, or murmurs RESPIRATORY EXAMINATION: Diminish breath sounds throughout. Significantly diminished on the right mid and lower lung carranza with scattered rhonchi. There is stridor present. Symmetric chest expansion. No wheezing or rales ABDOMINAL EXAMINATION: Soft, nondistended. Nontender. Normoactive bowel sounds EXTREMITIES: No edema. Full and equal pulses in bilateral upper and lower extremities SKIN: No rashes or lesions NEUROLOGICAL EXAMINATION: No focal neurological deficits PSYCHIATRIC EXAMINATION: Patient appears depressed. Mood and affect are appropriate for his situation. LABORATORY DATA: Please see below. IMAGING: INDICATION: dysphagia. COMPARISON: None TECHNIQUE: This procedure was performed by RYAN Douglas, under the direct supervision of Dr. Cosme. Images were reviewed with Dr. Cosme prior to dictation. Liquid barium and gas producing crystals were given in the erect position, as well as liquid barium in the prone oblique position in order to perform a double contrast esophagram examination. FINDINGS: A single view PA chest x-ray is submitted as a yarn sizer film, there is no change since the previous chest x-ray dated 01/03/2021. The oral and pharyngeal stages of deglutition did demonstrate some delay in swallowing. Once swallowed esophageal transport is prompt and efficient proximally. However the middle and distal 1/3 of the esophagus does not distend, and has a displaced and nodular appearance, most likely due to an extrinsic mass. This distal 1/3 also does not distend. There is a dilation of the proximal 3rd of the thoracic esophagus consistent with some degree of incomplete esophageal obstruction. The middle and distal 3rd of the esophagus are aperistaltic. IMPRESSION: Non-distending middle and distal thirds of the esophagus with a fixed displaced nodular appearance, most likely due to an extrinsic mass. 0.2 minutes of fluoroscopy time was utilized for this procedure. Some fluoroscopic images are performed with last image hold technology. These images require no additional radiation. <Electronically signed by Kat Cassidy > 01/19/21 1659 <Electronically signed by Herbie Cosme > 01/19/21 1709 INDICATION: growing mass?. COMPARISON: No comparison soft tissue neck CT. Comparison is made with the upper most cuts of the CT studies from December 18 2020 and December 15 2020. November 21, 2020 and October 17, [address] study images are also reviewed.. TECHNIQUE: Helical scanning is acquired following the intravenous injection of 100 mL of Isovue 370. 3 mm axial images re-formatted. Coronal and sagittal MPR images are provided. FINDINGS: There is bilateral supraclavicular and subclavian lymphadenopathy which is progressing. The largest node is a right subclavian node which is seen just lateral to the course of the right internal jugular Ubtjyw-J-Jvra catheter. This lymph node measures 3.5 x 3.0 x 2.8 cm in right to left by anteroposterior by craniocaudal dimension. On December 18 CT chest scan measured in retrospect, this lymph node measured 2.7 cm in right to left by 2.4 cm anterior to posterior. Above this there is a right supraclavicular lymph node measuring 2.7 cm in right to left dimension, 2.2 cm on December 18, 2020. There are scattered normal sized right next lymph nodes above this. On the left, there is a superior mediastinal node just anterior to the left common carotid artery which measures 1.7 cm. A left supraclavicular lymph node is seen just posterior to the left internal jugular vein. This measures 1.4 x 1.8 cm. These nodes are both larger than they were December 18, 2020. There are 2 or 3 lymph nodes in the posterior cervical chain above this on the left. The largest of these is 1.2 cm. No suprahyoid adenopathy on the left. Parotid and submandibular glands are symmetric. Thyroid lobes are unremarkable. Glottic and subglottic airway is intact. Tonsillar and peritonsillar soft tissues are unremarkable. No bony destructive lesion is seen. The upper thoracic esophagus is noted be air distended. IMPRESSION: Progressive bilateral supraclavicular and right subclavian lymphadenopathy. <Electronically signed by Herbie Cosme > 01/20/21 1257 INDICATION: growing mass. COMPARISON: CT of the chest without IV contrast dated 12/18/2020 TECHNIQUE: Chest CT with IV contrast. FINDINGS: There is a large mass inferiorly in the right lung with a large necrotic lesion within it and extensive significantly enlarged mediastinal adenopathy extending into the dino all similar to the prior study. The previous pigtail right pleural drainage catheter has been removed. The volume of pleural fluid on the right appears decreased. The large low density necrotic area within the right lung mass today measures up to 8.5 cm AP diameter. This previously measured 7.5 cm. An air-fluid level is now identified within this necrotic area as an interval change. There is a pericardial effusion measuring 1.5 cm depth on the axial images along the posterolateral margin of the heart on the left and measuring up to 2 cm depth along the inferior margin of the heart on the coronal images. This appears to have increased from the prior study were measured up to 7 cm posterolaterally on the axial images and 1 cm inferiorly on the coronal images. Dilatation of the esophagus and a small air-fluid level within the esophagus are again identified compatible with compression/obstruction, as previously, likely secondary to the large mass and bulky mediastinal adenopathy. IMPRESSION: No significant change in the large right lung mass and bulky mediastinal adenopathy. The previous pigtail pleural drainage catheter on the right has been removed. There is now an air-fluid level within the in the necrotic zone in the large right lung mass. There is a pericardial effusion as described. This appears to have increased from the prior study. Esophageal compression/obstruction is again noted. <Electronically signed by Nasir Zambrano > 01/20/21 1306 PROGNOSIS: Overall Guarded ACTIVITY: [As tolerated]. DIET: Liquid with Ensure supplementation 4 times a day DISCHARGE PLAN: Patient is to be discharged home. He is to continue a liquid diet with ensure supplementation four times a day. He is to follow up with Dr. Millan of Interventional Radiology for outpatient placement of PEG tube. He is to HOLD his Eliquis 48 hours before his scheduled PEG tube placement. He is to follow-up with Oncology regarding consideration for other palliative care options including possible radiation therapy and subsequently esophageal stenting by gastroenterology. He is to STOP IV ceftriaxone. He is to start Cefdinir 300mg BID liquid suspension for 14 days DISPOSITION: 01 Home, Self-Care. DISCHARGE INSTRUCTIONS: 1. Follow-up with IR for PEG tube placement 2. Continue liquid diet with Ensure supplementation four times daily 3. Start Cefdinir Oral Suspension 300mg BID for 14 days. 4. Follow-up with Oncologist for recommendations on palliative options and possible Radiation therapy 5. Follow-up with PCP DISCHARGE CONDITION: [Stable]. TIME SPENT ON DISCHARGE: Greater than 40 minutes. Vital Signs/I&Os Vital Signs Date Time Temp Pulse Resp B/P (MAP) Pulse Ox O2 Delivery O2 Flow Rate FiO2 01/21/21 09:25 103 146/91 01/21/21 06:12 96.2 8 97 Room Air I&O- Last 24 Hours up to 6 AM 01/21/21 06:00 Intake Total 1610 ml Output Total 0 ml Balance 1610 ml Laboratory Data Labs 24H Laboratory Tests 2 01/20/21 16:33: Bedside Glucose (Misc Panel) 127H 01/20/21 20:20: Bedside Glucose (Misc Panel) 143H 01/21/21 06:37: Nucleated Red Blood Cells % (auto) 0.0, Anion Gap 11, Glomerular Filtration Rate > 60.0, Calcium Level 10.3H CBC/BMP Laboratory Tests 01/21/21 06:37 FSBS Laboratory Tests Test 01/20/21 16:33 01/20/21 20:20 Range/Units Bedside Glucose (Misc Panel) 127 143 70-105 MG/DL Discharge Medications Scheduled Albuterol Sulf (Albuterol Sulfate) 2.5 Mg/3 Ml Vial.neb, 2.5 MG INH TID, (Reported) Apixaban (Eliquis) 2.5 Mg Tablet, 2.5 MG PO BID, (Reported) Cefdinir (Cefdinir) 250 Mg/5 Ml Susp.recon, 6 ML PO BID Cholecalciferol (Vitamin D3) (Vitamin D3) 1,000 Unit Tablet, 2,000 UNITS PO DAILY, (Reported) Docusate Sodium (Stool Softener) 100 Mg Capsule, 100 MG PO BID, (Reported) Glipizide (Glipizide) 5 Mg Tablet, 5 MG PO DAILY, (Reported) Metformin HCl (Metformin HCl) 1,000 Mg Tablet, 1,000 MG PO BID, (Reported) Metoprolol Succinate (Metoprolol Succinate) 50 Mg Tab.er.24h, 50 MG PO BID, (Reported) Pantoprazole Sodium (Pantoprazole Sodium) 40 Mg Tablet.dr, 40 MG PO QHS, (Reported) Sennosides/Docusate Sodium (Senna-S Tablet) 1 Each Tablet, 1 TAB PO BID, (Reported) Sertraline Hcl (Zoloft) 100 Mg Tablet, 100 MG PO DAILY, (Reported) Simvastatin (Simvastatin) 10 Mg Tablet, 10 MG PO QHS, (Reported) Umeclidinium [place] (Incruse Ellipta) 62.5 Mcg Blst.w.dev, 1 PUFF INH DAILY, (Reported) Scheduled PRN Acetaminophen (Acetaminophen) 325 Mg Tablet, 650 MG PO Q4H PRN for PAIN / FEVER, (Reported) Albuterol Sulfate (Albuterol Sulfate Hfa) 8.5 Gm Hfa.aer.ad, 2 PUFFS INH Q4H PRN for SOB/COUGH, (Reported) Guaifenesin (Mucinex) 600 Mg Tab.er.12h, 600 MG PO BID PRN for COUGH, (Reported) Hydrocodone/Acetaminophen (Hydrocodone-Acetamin 5-325 mg) 1 Each Tablet, 1 TAB PO Q4H PRN for PAIN, (Reported) MDD 4 Mag Hydrox/Aluminum Hyd/Simeth (Mylanta Maximum Strength Liq) 355 Ml Oral.susp, 15 ML PO QID PRN for INDIGESTION, (Reported) Melatonin (Melatonin) 10 Mg Capsule, 10 MG PO QHS PRN for SLEEP, (Reported) Allergies Coded Allergies: No Known Allergies (Unverified , 08/14/19) GME ATTESTATION GME ATTESTATION My faculty preceptor for this patient encounter was physically present during the encounter and was fully available. All aspects of the patient interview, examination, medical decision making process, and medical care plan development were reviewed and approved by the faculty preceptor. The faculty preceptor is aware and concurs with the plan as stated in the body of this note and will attest to such by his/her cosignature. FRANCIS METCALF DO Jan 21, 2021 13:32
== END 2021-01-21 12:20 | disposition home or self-care (01) | DRG 391 ==
LOC: M MS5PR 12:43
PROVIDERS: ADMIT Internal Medicine; ATTEND Internal Medicine Nephrology
DX: K22.2 Esophageal obstruction (principal); J85.2 Abscess of lung without pneumonia; C34.90 Malignant neoplasm of unspecified part of unspecified bronchus or lung; C77.1 Secondary and unspecified malignant neoplasm of intrathoracic lymph nodes; I48.91 Unspecified atrial fibrillation; E11.9 Type 2 diabetes mellitus without complications; F41.9 Anxiety disorder, unspecified; F32.9 Major depressive disorder, single episode, unspecified; E78.5 Hyperlipidemia, unspecified; R13.10 Dysphagia, unspecified; Z87.891 Personal history of nicotine dependence; Z79.01 Long term (current) use of anticoagulants; Z79.84 Long term (current) use of oral hypoglycemic drugs; Z79.899 Other long term (current) drug therapy

== ENCOUNTER → 2021-01-31 | Outpatient (POV) | payer MEDICARE, MEDICAID ==
[~2021-01-31] MED LIST changes: +ALBU83IN INH; +APAP325T4 PO; +CEFD250S26 PO; +HYDR-3713 PO; +LEVO500T3; +MM S100C PEG; +MM S100C PO; +OXYC1SOL3 PEG; +SENN-23 PO
--- NOTE | 2021-02-03 10:48 | IRCOV ---
[facility] IR Consult Office Visit IR Consult Office Visit DATE: Jan 31, 2021 Patient agreed to this telephone consultation. I spent 30 minutes reviewing patients records, imaging and talking to the patient. REASON FOR CONSULTATION/CHIEF COMPLAINT: referred for percutaneous G tube placement. HISTORY OF PRESENT ILLNESS: 50 year old male with right sided lung cancer progressed on multiple lines of chemotherapy now with massive mediastinal adenopathy causing esophageal compression and dysphagia. Patient reports for the past 4 weeks, he is only able to tolerate some ensure and Jello by mouth, but feels like it gets stuck in the back of his throat and makes him cough and choke. He reports 2 recent episodes of pneumonia. He describes 50 lb weight loss over several weeks. His last radiation was in April last year and last chemo November 2020. He denies nausea or vomiting, fevers or chills. he denies prior hematemesis, ulcers or gastric surgery. He is on Eliquis for Afib and does suffer with COPD but not on home oxygen. ALLERGIES: Please see below. HOME MEDICATIONS: Please see below. PAST MEDICAL HISTORY: Lung cancer COPD DM PNA PAST SURGICAL HISTORY: None FAMILY HISTORY: non contributory. SOCIAL HISTORY: Ex smoker quit last year. 54 pack year history. Denies alcohol or drugs. PHYSICAL EXAMINATION: No video on patient side. LABORATORY DATA: 01/31/21 Hgb 10.4 HCT 33.4 WBC 14.3 PLT 352 Na 137 K 3 BUN 10 Cr 0.62 INR 12/15/20 1.1 Imaging: I personally reviewed the January 20, 2021 CT chest with contrast. Right lung mass with massive mediastinal adenopathy and esophageal compression. The stomach is located below the diaphragm. ASSESSMENT/PLAN: 50 year old male with lung cancer and mediastinal adenopathy associated with esophageal compression and dysphagia. I agree he would benefit from G tube placement. We discussed the risks and benefits of the procedure and patient would like to proceed. Procedure schedule. Patient to hold Eliquis for 48 hours prior the procedure. Thank you for this referral. Allergies Coded Allergies: No Known Allergies (Unverified , 08/14/19) Home Medications Scheduled Albuterol Sulf (Albuterol Sulfate), 2.5 MG INH TID, (Reported) Apixaban (Eliquis), 2.5 MG PO BID, (Reported) Cholecalciferol (Vitamin D3) (Vitamin D3), 2,000 UNITS PO DAILY, (Reported) Docusate Sodium (Stool Softener), 100 MG PEG BID Glipizide (Glipizide), 5 MG PO DAILY, (Reported) Metformin HCl (Metformin HCl), 1,000 MG PO BID, (Reported) Metoprolol Succinate (Metoprolol Succinate), 50 MG PO BID, (Reported) Pantoprazole Sodium (Pantoprazole Sodium), 40 MG PO QHS, (Reported) Sennosides/Docusate Sodium (Senna-S Tablet), 1 TAB PO BID, (Reported) Sertraline Hcl (Zoloft), 100 MG PO DAILY, (Reported) Simvastatin (Simvastatin), 10 MG PO QHS, (Reported) Umeclidinium [place] (Incruse Ellipta), 1 PUFF INH DAILY, (Reported) Scheduled PRN Acetaminophen (Acetaminophen), 650 MG PO Q4H PRN for PAIN / FEVER, (Reported) Albuterol Sulfate (Albuterol Sulfate Hfa), 2 PUFFS INH Q4H PRN for SOB/COUGH, (Reported) Guaifenesin (Mucinex), 600 MG PO BID PRN for COUGH, (Reported) Mag Hydrox/Aluminum Hyd/Simeth (Mylanta Maximum Strength Liq), 15 ML PO QID PRN for INDIGESTION, (Reported) Melatonin (Melatonin), 10 MG PO QHS PRN for SLEEP, (Reported) Oxycodone HCl (Oxycodone HCl), 5 ML PEG Q4HP PRN for PAIN Discontinued Medications Cefdinir (Cefdinir), 6 ML PO BID Discontinued Reason: Pt states not taking Docusate Sodium (Stool Softener), 100 MG PO BID, (Reported) Discontinued Reason: Prescription changed Hydrocodone/Acetaminophen (Hydrocodone-Acetamin 5-325 mg), 1 TAB PO Q4H PRN for PAIN, (Reported) Levofloxacin (Levofloxacin), (Reported) Discontinued Reason: Pt states not taking RAKAN UGARTE MD Feb 03, 2021 10:48
== END ==
LOC: M TMIRPOV 12:51
PROVIDERS: ATTEND Radiology Diagnostic Radiology
DX: C34.81 Malignant neoplasm of overlapping sites of right bronchus and lung (principal); E11.9 Type 2 diabetes mellitus without complications; J44.9 Chronic obstructive pulmonary disease, unspecified; R13.10 Dysphagia, unspecified; R59.0 Localized enlarged lymph nodes; Z79.01 Long term (current) use of anticoagulants; Z87.01 Personal history of pneumonia (recurrent); Z87.891 Personal history of nicotine dependence; Z92.21 Personal history of antineoplastic chemotherapy; Z92.3 Personal history of irradiation

== ENCOUNTER → 2021-02-01 | Outpatient (CLI) | payer MEDICARE, MEDICAID ==
--- NOTE | 2021-02-01 12:29 | RADONC ---
Radiation Oncology Hx/FUP Radiation Oncology Hx/FUP Date of Service: Feb 01, 2021 Pt Identifier Tomer Suresh is a 50 year old male with a history of stage IV NSCLC. He has progressed through multiple lines of systemic therapy and received palliative RT to the right upper mediastinum 30 Gy in 10 fractions completed 05/03/20 for pain control. He has subsequently developed a high grade esophageal obstruction from left lower mediastinal adenopathy resulting in 50 lb weight loss and necessitating PEG placement (which will occur 02/02/21). He is seen today for consideration of palliative RT to this area of obstruction. Diagnosis/Treatment History Oncologic History 1. 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 2. 54 pack-year smoking history, cutting down in [id number]. 3. New right supraclavicular pain began mid March, severe, possibly associated with persistent right upper chest tumor responding partially to gabapentin. Maintenance pembrolizumab with day one cycle one 12/22/2019; treatment hiatus 4. since February. Switched to docetaxel/Cyramza on August because of progression of disease on CAT scan 5. Carboplatin/paclitaxel/pembrolizumab four cycles 09/29/2019 - 12/21/2019, major 6. CT scan showed progression of disease and started on Cyramza and Taxotere every 3 weeks [address] scan 10/17/2020 after 3 doses of Taxotere and Cyramza again showed progression of disease in the right lower lung right-sided pleural effusion and subcarinal lymph nodes. His treatment was switched to weekly Navelbine. First dose on 11/15/2020. AK. 8. Status post four cycles of maintenance pembrolizumab, held since 03/22/2020. 9.PET CT 03/29/2020 shows partial response. Persistent marked hypermetabolic uptake in the smaller mediastinal mass and the right pretracheal region, SUV 36, no uptake in precarinal SUV 19, and right hilus SUV 8 and 11, additional uptake in the right lower lobe above the right diaphragm SUV 10. Previously noted paraesophageal teddy focus and previously noted celiac axis focus no longer hypermetabolic or visible. No evidence on reviewing the images of spinal or brachial plexus area involvement. 10. 03/30/2020 PET/CT with partial response with improvement in uptake in size of mediastinal mass but persistent uptake in the right pretracheal region, SUV as high as 19. Right lower lobe parenchymal nodule also with significant uptake, SUV 10 with dramatic decrease in size. 11. Palliative RT 30 Gy in 10 fractions to the upper mediastinal adenopathy with positive pain response. 12. 07/06/2020. CT scan of the chest comparison to 09/23/2020. 4.5 cm malignant mass is centered necrosis in the right lower lobe adjacent to post obstructive atelectasis in the right infrahilar region as well as new moderate area of groundglass opacities in the right upper lobe and slightly increased mediastinal/hilar adenopathy. Findings were consistent with active progressive malignancy. Patient was switched to docetaxel/Cyramza. First dose was given on 08/24/2020. Total of 3 doses were given last dose on October 2020. Repeat CT scan on to October 2020 revealed a cavitary lesion in the right lower lung and progression of disease so Taxotere and Cyramza was discontinued. Was found to have abscess and necrotic tumor of the right lung. Recent data: 01/20/21 CT chest FINDINGS: There is a large mass inferiorly in the right lung with a large necrotic lesion within it and extensive significantly enlarged mediastinal adenopathy extending into the dino all similar to the prior study. The previous pigtail right pleural drainage catheter has been removed. The volume of pleural fluid on the right appears decreased. The large low density necrotic area within the right lung mass today measures up to 8.5 cm AP diameter. This previously measured 7.5 cm. An air-fluid level is now identified within this necrotic area as an interval change. There is a pericardial effusion measuring 1.5 cm depth on the axial images along the posterolateral margin of the heart on the left and measuring up to 2 cm depth along the inferior margin of the heart on the coronal images. This appears to have increased from the prior study were measured up to 7 cm posterolaterally on the axial images and 1 cm inferiorly on the coronal images. Dilatation of the esophagus and a small air-fluid level within the esophagus are again identified compatible with compression/obstruction, as previously, likely secondary to the large mass and bulky mediastinal adenopathy. IMPRESSION: No significant change in the large right lung mass and bulky mediastinal adenopathy. The previous pigtail pleural drainage catheter on the right has been removed. There is now an air-fluid level within the in the necrotic zone in the large right lung mass. There is a pericardial effusion as described. This appears to have increased from the prior study. Esophageal compression/obstruction is again noted. Interval History Tomer reports complete dysphagia to liquids and solids. He has central chest pain which is constant and functionally limiting. He also has persistent and mounting MUNIZ and SOB. He is using an albuterol inhaler with some positive effect. Current Therapy Pending Stage NSCLC of RLL stage IV Social History: 50+ pack year smoker Does not drink Allergies / Meds Allergies: Coded Allergies: No Known Allergies (Unverified , 08/14/19) Home Meds Reported Medications Levofloxacin (Levofloxacin) 500 Mg Tablet 02/01/21 Sennosides/Docusate Sodium (Senna-S Tablet) 1 Each Tablet, 1 TAB PO BID, TAB 01/19/21 Albuterol Sulf (Albuterol Sulfate) 2.5 Mg/3 Ml Vial.neb, 2.5 MG INH TID, ESDRAS 01/19/21 Pantoprazole Sodium (Pantoprazole Sodium) 40 Mg Tablet.dr, 40 MG PO QHS, TAB 01/19/21 Metoprolol Succinate (Metoprolol Succinate) 50 Mg Tab.er.24h, 50 MG PO BID, TAB 01/19/21 Hydrocodone/Acetaminophen (Hydrocodone-Acetamin 5-325 mg) 1 Each Tablet, 1 TAB PO Q4H PRN for PAIN, #20 TAB MDD 4 01/19/21 Guaifenesin (Mucinex) 600 Mg Tab.er.12h, 600 MG PO BID PRN for COUGH 01/19/21 Docusate Sodium (Stool Softener) 100 Mg Capsule, 100 MG PO BID, CAP 01/19/21 Albuterol Sulfate (Albuterol Sulfate Hfa) 8.5 Gm Hfa.aer.ad, 2 PUFFS INH Q4H PRN for SOB/COUGH, INHALER 01/19/21 Acetaminophen (Acetaminophen) 325 Mg Tablet, 650 MG PO Q4H PRN for PAIN / FEVER, TAB 01/19/21 Apixaban (Eliquis) 2.5 Mg Tablet, 2.5 MG PO BID, TAB 01/19/21 Cholecalciferol (Vitamin D3) (Vitamin D3) 1,000 Unit Tablet, 2000 UNITS PO DAILY, TAB 12/15/20 Sertraline Hcl (Zoloft) 100 Mg Tablet, 100 MG PO DAILY, TAB 12/15/20 Melatonin (Melatonin) 10 Mg Capsule, 10 MG PO QHS PRN for SLEEP 12/15/20 Mag Hydrox/Aluminum Hyd/Simeth (Mylanta Maximum Strength Liq) 355 Ml Oral.susp, 15 ML PO QID PRN for INDIGESTION 12/06/20 Umeclidinium [place] (Incruse Ellipta) 62.5 Mcg Blst.w.dev, 1 PUFF INH DAILY 08/14/19 Simvastatin (Simvastatin) 10 Mg Tablet, 10 MG PO QHS 08/14/19 Glipizide (Glipizide) 5 Mg Tablet, 5 MG PO DAILY 08/14/19 Metformin HCl (Metformin HCl) 1,000 Mg Tablet, 1000 MG PO BID 08/14/19 Discontinued Scripts Cefdinir (Cefdinir) 250 Mg/5 Ml Susp.recon, 6 ML PO BID for 14 Days, #168 ML 0 Refills Prov:FRANCIS METCALF DO 01/21/21 Review of Systems Review of Systems Constitutional: Reports: Malaise, Weakness, Fatigue, Weight Loss Eyes: Denies: Pain HEENT: Denies: Head Aches Pulmonary: Reports: Dyspnea, Cough, Pleuritic Chest Pain Cardiovascular: Reports: Chest Pain, Orthopnea Gastrointestinal: Reports: Nausea; Denies: Abdominal Pain Hematologic: Denies: Bruising Musculoskeletal: Reports: Back pain, Midthoracic pain; Denies: Neck pain Neurological: Denies: Weakness, Numbness Physical Examination Vital Signs Wt 184 lbs (from 227 lbs in April 2020) T 96 P 129 RR 26 BP 98/70 O2 85% Pain 6 Fatigue 3 General Exam: Positive: Moderate Distress, Other (Cachectic) Eye Exam: Positive: PERRLA, EOMI Neck Exam: Positive: Supple Chest Exam: Positive: Clear to auscultation, Rhonchi, Wheezing (Diffuse, audible wheezing) Heart Exam: Positive: Rate Normal, Regular Rhythm Abdomen Exam: Positive: Soft; Negative: Tenderness Extremity Exam: Negative: Edema Neuro Exam: Positive: Normal Speech, Cranial Nerves 3-12 NL Diagnostic and Laboratory Diagnostic Review Radiologic images, relevant labs and pathology reports were personally reviewed and discussed with Mr. Suresh. Assessment and Plan Impression Assessment Mr. Suresh is a 50 year old male with a history of stage IV NSCLC. He has progressed through multiple lines of systemic therapy and received palliative RT to the right upper mediastinum 30 Gy in 10 fractions completed 05/03/20 for pain control. He has subsequently developed a high grade esophageal obstruction from left lower mediastinal adenopathy resulting in 50 lb weight loss and necessitating PEG placement (which will occur 02/02/21). He is seen today for cons ideration of palliative RT to this area of obstruction. He has massive mediastinal adenopathy fully encasing his esophagus, he would benefit from PEG tube placement which will occur tomorrow. For his obstruction I recommend 20 Gy in 5 fraction palliative RT. I will need IGRT with this as the current area of interest includes part of a previously treated field and I would seek to minimize overlap. With respect to his other needs at this time we discussed referral to palliative care as he is likely without additional systemic therapy options and at the very least they can help manage his symptoms. I will prescribe a short supple liquid oxycodone for his pain in the meantime. He also qualifies for and would benefit from home O2 which we will arrange. I also remain available to assist him with tube feeding recommendations and care. With respect to RT I would aim to simulate him in the next 1-2 days and begin treatment shortly thereafter. I anticipate no significant side effects from the treatment aside from fatigue and mild esophagitis. Performance Status ECOG 2 Plan Palliative RT to mediastinal mass 20 Gy in 5 fractions Simulation next 1-2 days Palliative care referral Home O2 ordered Liquid oxycodone 5 mg per PEG q4h Colace refilled Will assist with tube feeding as needed Mr. Suresh was encouraged to call with questions or concerns in the interim period. Billing Statement Total time of [35] minutes was spent preparing for the visit [2], obtaining HPI [3], examining the patient [2], reviewing diagnostic tests [4], discussing management options [13], coordinating care [5], and writing this note [7]. LAWRENCE BAH MD Feb 01, 2021 12:29
== END ==
LOC: M ONCR 11:08
PROVIDERS: ATTEND General Practice
DX: C34.31 Malignant neoplasm of lower lobe, right bronchus or lung (principal)

== ENCOUNTER → 2021-02-02 | Outpatient (CLI) | payer MEDICARE, MEDICAID ==
[~2021-02-02] MED LIST changes: +COLA100C5 PO; +GLUCAGON INJ 1MG VIAL As Ordered ONE; +ISOVUE-300 61% 50ML VIAL As Ordered ONE; +LIDOCAINE 1% MDV 20ML VIAL As Ordered ONE; +LIDOCAINE 2% JELLY 5ML TUBE As Ordered ONE; +LIDOCAINE W/EPINEPHRINE 1% 20ML VIAL As Ordered ONE; +MIDAZOLAM INJ 2MG/2ML VIAL (J2250 PER 1MG) As Ordered ONE; +MUCI600T31 PEG; +PROMETHAZINE INJ 25 MG/ML VIAL (J2550) As Ordered ONE; +ceFAZolin 2 GM/D5W 50 ML IV BAG (J0690 PER 500MG) As Ordered ONE; +diphenhydrAMINE 50MG/ML VIAL (J1200) As Ordered ONE; +fentaNYL 100 MCG/2 ML INJECTION (J3010) As Ordered ONE
[2021-02-02 15:45] VITALS: BP 128/93
--- NOTE | 2021-02-02 15:46 | IRPON ---
IR Postoperative Note Date Of Procedure: Feb 02, 2021 Time Of Procedure: 15:43 IR Postoperative Note Gastrostomy catheter placement with fluoroscopic guidance Clinical Information:Lung cancer. Mediastinal adenopathy with esophageal compression. Unable to eat. Physician: Dr. Millan. Procedure: The patient was advised of the benefits, risks, and alternatives of the procedure and informed consent was obtained. A time out was performed with verification of the patient's name, MRN, site of procedure, and type of procedure to be performed. The patient was positioned in the supine position on the angiographic table. The site was prepped and draped in the usual sterile fashion. Moderate sedation was performed by the physician including the presence of an independent trained RN, who assisted in monitoring the patient's level of consciousness and physiological status. Following the administration of fentanyl and Versed the physician spent 45 minutes of continuous cada-mh-arqc time with the patient. A office director radiograph reveals right thoracic opacification. A 5 Japanese glide cath in conjunction with a Glidewire, was inserted through the nostril, under fluoroscopy guidance, down the esophagus into the stomach. The wire was removed. One mg of glucagon was administered intravenously. The stomach was insufflated and distended with air through the nasogastric tube. The soft tissues overlying the anticipated puncture sites were anesthetized with lidocaine. A gastropexy needle was advanced into the stomach and positioning was confirmed with contrast injection. The gastropexy suture was deployed and secured in the usual fashion. A total of 3 gastropexy sutures were deployed. An 18 gauge needle was advanced into the body of the stomach. Contrast was injected documenting intra- gastric position. An Amplatz wire was advanced into the stomach. After serial dilation, a peel-away sheath was advanced over the wire, under fluoroscopy guidance, into the stomach. An 18 F RAMIN Gastrostomy catheter was then advanced over the wire, through the peel-away sheath into the stomach and the peel-away sheath was removed. The balloon was insufflated and the catheter retracted back to the the anterior stomach wall. The bumper on the catheter was positioned and secured to sandwich the anterior stomach wall. Contrast was inj ected to confirm catheter position. The catheter was then placed to gravity drainage. The NG tube was removed The patient tolerated the procedure well and was returned to the PRU in stable condition. EBL:Less than 5 mL. Complications:None. Conclusion: 1. Successful placement of an 18 Japanese RAMIN gastrostomy catheter. 2. The catheter should remain to gravity drainage for 24 hours after which feedings may begin and advanced as tolerated. The gastropexy sutures should dissolve within 6 weeks and the buttons will fall off. Thank you for this referral. Cc Dr. Nicko Zuluaga Cc RAKAN Max Dr[address] MD Feb 02, 2021 15:46
== END ==
LOC: M IRPRO 11:14
PROVIDERS: ATTEND Radiology Diagnostic Radiology
DX: C34.90 Malignant neoplasm of unspecified part of unspecified bronchus or lung (principal); R59.0 Localized enlarged lymph nodes; R13.10 Dysphagia, unspecified
CPT/HCPCS: 49440; 99152; 99153; C1729; C1769; C1887; C1894; J0690; J1200; J1610; J2250; J3010; Q9967

== ENCOUNTER 2021-02-03 13:50 | Outpatient (RCR) | payer MEDICARE, MEDICAID ==
[~2021-02-03 13:50] MED LIST changes: -COLA100C5 PO; -GLUCAGON INJ 1MG VIAL As Ordered ONE; -ISOVUE-300 61% 50ML VIAL As Ordered ONE; -LIDOCAINE 1% MDV 20ML VIAL As Ordered ONE; -LIDOCAINE 2% JELLY 5ML TUBE As Ordered ONE; -LIDOCAINE W/EPINEPHRINE 1% 20ML VIAL As Ordered ONE; -MIDAZOLAM INJ 2MG/2ML VIAL (J2250 PER 1MG) As Ordered ONE; -PROMETHAZINE INJ 25 MG/ML VIAL (J2550) As Ordered ONE; -ceFAZolin 2 GM/D5W 50 ML IV BAG (J0690 PER 500MG) As Ordered ONE; -diphenhydrAMINE 50MG/ML VIAL (J1200) As Ordered ONE; -fentaNYL 100 MCG/2 ML INJECTION (J3010) As Ordered ONE
[2021-02-07] MEDS ORDERED: COLA100C5 PO (18:00)
== END 2021-02-14 ==
LOC: M ONCR 13:50
PROVIDERS: ATTEND General Practice
DX: C34.31 Malignant neoplasm of lower lobe, right bronchus or lung (principal)

== ENCOUNTER 2021-02-07 14:33 | Inpatient (IN) | payer MEDICARE, MEDICAID ==
[~2021-02-07] VITALS: Ht 205.7 cm; Wt 95.4 kg
--- NOTE | 2021-02-07 15:29 | REP ---
INDICATION: DYSPNEA/COUGH. COMPARISON: 01/03/2021. TECHNIQUE: SINGLE PORTABLE AP VIEW OF THE CHEST WAS PERFORMED. FINDINGS: Right-sided pleural and parenchymal opacities appear essentially unchanged. There is patchy infiltrate in the left lung base. A right central venous catheter is again seen unchanged in position. IMPRESSION: Stable pleural and parenchymal opacities on the right. Mild patchy infiltrate left lung base appears new. <Electronically signed by Nasir Villalobos > 02/07/21 [id number]
[2021-02-07 15:40] LABS: BASO # 0.1 10^3/uL (0.0-0.2); BASO % 0.4 % (0.0-1.0); EOS # 1.6 10^3/uL (0.0-0.5); EOS % 10.2 % (0.0-3.0); HEMATOCRIT 34.8 % (42.0-52.0); HEMOGLOBIN 10.4 g/dl (13.5-17.5); LYMPH # 1.8 10^3/uL (1.5-5.0); LYMPH % 11.2 % (24.0-44.0); MEAN CORPUSCULAR HGB CONC 29.9 g/dl (32.0-36.5); MEAN CORPUSCULAR VOLUME 90.4 fl (80.0-96.0); MONO % 12.7 % (2.0-8.0); NEUTROPHILS # 10.2 10^3/uL (1.5-8.5); NEUTROPHILS % 65.1 % (36.0-66.0); PLATELET COUNT, AUTOMATED 333 10^3/uL (150-450); RED BLOOD COUNT 3.85 10^6/uL (4.30-6.10)
[2021-02-07 15:51] LABS: ABG BASE EXCESS 10.6 (-2.0-2.0); ABG HCO3 36.2 MEQ/L (22.0-26.0); ABG O2 SATURATION 99.2 % (95.0-99.0); ABG PARTIAL PRESSURE CO2 53.3 mmHg (35.0-45.0); ABG PARTIAL PRESSURE O2 131.9 mmHg (75.0-100.0); ABG STANDARD HCO3 34.4 MEQ/L (22.0-26.0); ABG TOTAL CO2 37.8 MEQ/L (22.0-29.0)
[2021-02-07 15:56] LABS: INR 1.1; PARTIAL THROMBOPLASTIN TIME 31.2 SECONDS (24.2-38.5); PROTHROMBIN TIME 14.5 SECONDS (12.5-14.3)
[2021-02-07 16:17] LABS: WHITE BLOOD COUNT 15.6 10^3/uL (4.0-10.0)
[2021-02-07 16:18] LABS: ALBUMIN 2.9 GM/DL (3.2-5.2); ALT/SGPT 18 U/L (12-78); BILIRUBIN,DIRECT < 0.1 MG/DL (0.0-0.2); BILIRUBIN,TOTAL 0.3 MG/DL (0.2-1.0); BLOOD UREA NITROGEN 11 MG/DL (7-18); CALCIUM LEVEL 12.3 MG/DL (8.5-10.1); CARBON DIOXIDE LEVEL 37 MEQ/L (21-32); CHLORIDE LEVEL 99 MEQ/L (98-107); CK-MB VALUE MASS < 1.0 NG/ML (<3.6); CPK CREATINE PHOSPHOKINASE 94 U/L (39-308); CREATININE FOR GFR 0.56 MG/DL (0.70-1.30); GLOMERULAR FILTRATION RATE > 60.0 (>56); GLUCOSE, FASTING 153 MG/DL (70-100); MB/CK RELATIVE INDEX 1.06 (< OR =4); NT-PRO BNP 244 PG/ML (<125); POTASSIUM SERUM 4.9 MEQ/L (3.5-5.1); SODIUM LEVEL 139 MEQ/L (136-145); TOTAL PROTEIN 7.6 GM/DL (6.4-8.2); TROPONIN I < 0.02 NG/ML (< 0.10)
[2021-02-07] MEDS ORDERED: oxyCODONE 5MG TAB PEG ONE (16:35)
[2021-02-07] MEDS ORDERED: PIPERACILLIN/TAZOBACTAM SOD 4.5 GM in D5W MINI-BAG PLUS 50 ML IV ONE (16:45)
[2021-02-07] MEDS ORDERED: VANCOMYCIN HCL 1,000 MG, VIAL MATE ADAPTER 1 EACH in NS 250 ML IV ONE (16:45)
[2021-02-07] MEDS ORDERED: ISOVUE-370 76% 100ML VIAL As Ordered ONE (17:28)
[2021-02-07] MEDS ORDERED: CEFEPIME HCL 1 GM in D5W MINI-BAG PLUS 50 ML IV SCH (17:55)
[2021-02-07] MEDS ORDERED: GLUCAGON INJ 1MG VIAL SC PRN (18:00)
[2021-02-07] MEDS ORDERED: GLUCOSE 4GM CHEW TABLET PO PRN (18:00)
[2021-02-07] MEDS: HumaLOG INSULIN (NovoLOG) PER UNIT SC SCH ×2 (18:00→23:27)
[2021-02-07] MEDS ORDERED: DEXTROSE 50% 50 ML SYRINGE IV PRN (18:00)
[2021-02-07] MEDS ORDERED: COLA100C5 PO (18:00)
--- NOTE | 2021-02-07 18:03 | ECGEPIP ---
[facility] - ED Test Date: 2021-02-07 Pat Name: MAMTA YORK Department: Room: - Gender: Male Size Tester: [employer] JAMES : 1970 Requested By: KRIS Miguel Order Number: [id number] Reading MD: Susy Rick Measurements Intervals Brandon Rate: 123 P: 65 MS: 118 QRS: 68 QRSD: 90 T: -17 QT: 316 QTc: 452 Interpretive Statements Sinus tachycardia Possible Left atrial enlargement Nonspecific ST and T wave abnormality Electronically Signed on 02-07-2021 18:02:56 EDT by Susy Rick
--- NOTE | 2021-02-07 18:05 | HPEPDOC ---
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 Millan) who presented to [facility] emergency room with chief complaint of increasing shortness of breath over the past 24 hours. The patient was an overall very poor historian, which his says is because of his developmental delay. His was at the bedside and was able to give me a lot of information. Today the patient was noticed to have increased work of breathing, struggled to catch his breath, increased productive cough over the past 24 hours. He had a recent feeding tube placed on 02/02/2021 is also been complaining of increased diffuse abdominal pain. The patient himself denies chest pain, nausea, vomiting, diarrhea, fevers, chills, leakage from around feeding tube. According to his , continuous feedings have not started and the patient at times can tolerate a liquid diet Note: Patient has had several recent hospital admissions: First being on for right-sided pleural effusion 2/2 to malignancy (possibly infection) requiring thoracentesis and catheter placement/later removal. Second recent admission being on for dysphagia 2/2 to esophageal compression by an extrinsic mass. After the last admission, the patient was sent home with directions to follow up with IR for PEG tube placement. Feeding tube was later placed on 02/02/2021. He has been unable to tolerate a liquid diet at home and has had steady weight loss over the past several months. He was supposed to start radiation for this extrinsic mass recently but this was po stponed. He was also treated for right-sided pulmonary abscess secondary to pneumococcus recent. He was treated with IV ceftriaxone and later oral cefdinir, which his states he could not tolerate. Dr. Le (infectious disease) was following him during this time and her office was supposedly updated that he could not complete his oral course of antibiotics. In the ER, VS showed T 96.6 F, HR 125 sinus tach, RR 20-30, BP 129/63, 98% on 3 L NC. His said he was recently started on home O2 over the past 4 days, prescribed by his radiation oncologist. CXR: Stable pleural and parenchymal opacities on the right. Mild patchy infiltrate left lung base appears new. CTA of the chest was ordered to r/o PE and/or persistent pulmonary abscess he was previously getting treated but could not complete oral abx for. He had abdominal pain on palpation, diffusely. LA elevated at 2.4. CT abd/pelvis with contrast ordered to r/o abscess vs. other acute abdominal pathology. On exam he was rhonchorous throughout b/l lung carranza, appeared in mild respiratory distress breathing in 30's. He appreared uncomfortable. ABG showed pH 7.45, WBC 15.6, H/H stable, BS 153, Resp panel neg. BNP 244. Patient was admitted for SOB and recent hypoxic respiratory failure 2/2 to HCAP, sepsis r/o worsened pulmonary abscess, abdominal pain r/o acute intrabdominal pathology with recent feeding tube placement. REVIEW OF SYSTEMS: Neg except for what is mentioned above PAST MEDICAL HISTORY: Stage IV squamous cell carcinoma of the lung s/p radiation/chemo Atrial fibrillation on Eliquis Diabetes mellitus type 2 Recent right lung abscess vs. necrotic lung mass s/p treatment with IV ceftriaxone, PO cefdinir (could not complete, followed with Dr. Le) Chronic right pleural effusion 2/2 to malignancy vs. infection, s/p US guided thoracentesis and chest tube placement/removal 12/2020 HLD Hx of tobacco use Depression Anxiety / hx of panic attacks Developmental delay Recurrent PNA Dysphagia 2/2 esophageal compression by extrinsic mass, supposed to start radiation for extrinsic mass (Dx 01/19- hospitalization) PAST SURGICAL HISTORY: Chest port placement Feeding tube placement 02/02/21 Thoracentesis with chest tube placement/removal 12/2020 FAMILY HISTORY: Mother with a history of uterine cancer Father with a history of unknown cancer SOCIAL HISTORY: Denies the use of alcohol or illicit drugs; patient reports that he quit smoking 2 years ago but was a smoker of 25 years at 2 packs per day Denies recent travel or sick contacts Lives with Occupation; she reports that he used to work at a [employer] Rad/onc- Dr. Byers Med/onc- Dr. 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 Reyes PCP- Dr. Perez Pulmonogist- Dr. Shaw ALLERGIES: Please see below. HOME MEDICATIONS: Please see below. PHYSICAL EXAMINATION: VS: T 96.6 F, HR 125 sinus tach, RR 20-30, BP 129/63, 98% on 3 L NC CONSTITUTIONAL: appears uncomfortable, mild respiratory distress, AAO x 2- poor historian but at baseline per family EYES: PERRLA, EOM intact HENT, MOUTH: Normocephalic, atraumatic, dry mucous membranes NECK: SUPPLE, no JVD, no lymphadenopathy, no carotid bruit CV: sinus tachycardia, S1S2 normal, no murmurs/rubs/gallops CHEST: port in place RESPIRATORY: Rhonchi b/l in upper and lower lung carranza, no rales/wheezes GI: PEG tube in place, area around tube appears clean, well healing. Tender to palpation of soft abdomen, diffuse, BS positive in 4 quadrants, no rebound or guarding, no organomegaly : Deferred MUSCULOSKELETAL: Normal ROM. No cyanosis, clubbing, swelling, joint deformity, extremity edema INTEGUMENTARY: Intact, no rashes, no lesions, no erythema NEUROLOGIC: Cranial Nerves II-XII are intact, no focal deficits LABORATORY DATA: Please see below IMAGING: CXR: Stable pleural and parenchymal opacities on the right. Mild patchy infiltrate left lung base appears new F/u CTA chest, CT abd/pelvis with contrast ASSESSMENT: 50-year-old male with past medical history of Stage IV squamous cell carcinoma of the lung s/p radiation/chemotherapy, atrial fibrillation on Eliquis, diabetes mellitus type 2, recent right lung abscess treated with IV and oral antibiotics, chronic right-sided pleural effusion secondary to malignancy status post ultrasound-guided thoracentesis and chest tube placement/removal, hyperlipidemia, history of tobacco use, depression/anxiety, history of recurrent pneumonia, developmental delay, dysphagia 2/2 esophageal compression by extrinsi c mass s/p FT placement 02/02/21 by IR (Dr. Millan) admitted under inpatient status for SOB and recent hypoxic respiratory failure 2/2 to HCAP, sepsis r/o worsened pulmonary abscess, abdominal pain r/o acute intrabdominal pathology with recent feeding tube placement. PLAN: SOB and recent hypoxic respiratory failure 2/2 to HCAP, sepsis -R/o worsened pulmonary abscess and pulmonary embolus -Only started on 3 L NC by radiation/oncology this past week -CXR above, f/u CTA chest -C/w treatment plan below for individual issues Acute hypoxic respiratory failure 2/2 to HCAP, r/o worsened pulmonary abscess vs. necrotic lung mass, sepsis -Currently 98% on 3 L NC (home amount as of several days ago), RR 20-30, rhonchi, incr SOB despite O2 -Also r/o aspiration with difficulty swallowing, incr nausea per patient -Patient is also chronic right pleural effusion 2/2 to malignancy vs. infection, s/p US guided thoracentesis and chest tube placement/removal 12/2020 -hx of recurrent PNA -LA elevated 2.4, tachycardia, WBC 15.6K -CXR above -F/u CTA chest for better look, sputum and blood cultures -Previously followed with Dr. Le for lung abscess- consult if present still -Started on vancomycin, zosyn, IVFs at 100 cc/hr, levalbuterol ATC and PRN, zofran. ugh feeding tube -Another swallowing evaluation ordered-NPO for now -Consult pulmonary after results of CTA chest Abdominal pain s/p feeding tube placement -Nausea, vomiting -Abd tenderness, s/s of sepsis above -F/u CT abd/pelvis with contrast -Daily CMP . Zofran PRN -NPO Dysphagia 2/2 esophageal compression by extrinsic mass, supposed to start radiation for extrinsic mass (Dx 01/19- hospitalization) -Did not start radiation recently as planned due to scheduling conflicts -Concern for aspiration remains -F/u repeat swallowing evaluation -NPO. If no acute issue with CT abd, can restart home meds through feeding tube- also will need nutritional assessment if feeding tube ok for recommendation on feeding schedule DM type II -Q6H ISS, FS. NPO Stage IV squamous cell carcinoma of the lung s/p radiation/chemo -Follows with Atrial fibrillation -currently NSR -Lovenox px dosing , holding PO BB HLD -Holding home statin Depression / Anxiety / Panic attacks -Holding home meds for now GERD -PPI IV DVT px -Lovenox DISPOSITION: Admitted as acute inpatient to PCU. Multiple imaging results pending. Vital Signs Vital Signs Date Time Temp Pulse Resp B/P (MAP) Pulse Ox O2 Delivery O2 Flow Rate FiO2 02/07/21 17:35 18 02/07/21 16:53 122 121/72 (88) 100 Nasal Cannula 3.0 02/07/21 14:34 96.6 Laboratory Data Labs 24H Laboratory Tests 2 02/07/21 15:31: Immature Granulocyte % (Auto) 0.4, Neutrophils (%) (Auto) 65.1, Lymphocytes (%) (Auto) 11.2L, Monocytes (%) (Auto) 12.7H, Eosinophils (%) (Auto) 10.2H, Basophils (%) (Auto) 0.4, Neutrophils # (Auto) 10.2H, Lymphocytes # (Auto) 1.8, Monocytes # (Auto) 2.0H, Eosinophils # (Auto) 1.6H, Basophils # (Auto) 0.1, Nucleated Red Blood Cells % (auto) 0.0, Prothrombin Time 14.5H, Prothromb Time International Ratio 1.10, Activated Partial Thromboplast Time 31.2, Anion Gap 3L, Glomerular Filtration Rate > 60.0, Calcium Level 12.3H, Total Bilirubin 0.3, Direct Bilirubin < 0.1, Aspartate Amino Transf (AST/SGOT) 34, Alanine Aminotransferase (ALT/SGPT) 18, Alkaline Phosphatase 74, Total Creatine Kinase 94, Creatine Kinase MB < 1.0, Creatine Kinase MB Relative Index 1.06, Troponin I < 0.02, TN-Rnu-[id number]-Type Natriuretic Peptide 244H, Total Protein 7.6, Albumin 2.9L, Albumin/Globulin Ratio 0.6, Thyroid Stimulating Hormone (TSH) 1.120 02/07/21 15:32: Blood Gas Bicarbonate Standard 34.4H, Arterial Blood pH 7.450, Arterial Blood Partial Pressure CO2 53.3H, Arterial Blood Partial Pressure O2 131.9H, Arterial Blood Total CO2 37.8H, Arterial Blood HCO3 36.2H, Arterial Blood Base Excess 10.6H, Arterial Blood Oxygen Saturation 99.2H 02/07/21 15:37: SARS Antigen (LFIA) NEGATIVE 02/07/21 17:32: CBC/BMP Laboratory Tests 02/07/21 15:31 Microbiology Microbiology 02/07/21 Blood Culture, Received Pending 02/07/21 Blood Culture, Received Pending 02/07/21 Respiratory Virus Panel (PCR) (RAMIN) - Final, Complete Home Medications Scheduled Albuterol Sulf (Albuterol Sulfate) 2.5 Mg/3 Ml Vial.neb, 2.5 MG INH TID Apixaban (Eliquis) 2.5 Mg Tablet, 2.5 MG PO BID Cholecalciferol (Vitamin D3) (Vitamin D3) 1,000 Unit Tablet, 2,000 UNITS PO DAILY Docusate Sodium (Stool Softener) 100 Mg Capsule, 100 MG PEG BID Glipizide (Glipizide) 5 Mg Tablet, 5 MG PO DAILY Metformin HCl (Metformin HCl) 1,000 Mg Tablet, 1,000 MG PO BID Metoprolol Succinate (Metoprolol Succinate) 50 Mg Tab.er.24h, 50 MG PO BID Pantoprazole Sodium (Pantoprazole Sodium) 40 Mg Tablet.dr, 40 MG PO QHS Sertraline Hcl (Zoloft) 100 Mg Tablet, 100 MG PO DAILY Simvastatin (Simvastatin) 10 Mg Tablet, 10 MG PO QHS Umeclidinium [place] (Incruse Ellipta) 62.5 Mcg Blst.w.dev, 1 PUFF INH DAILY Scheduled PRN Acetaminophen (Acetaminophen) 325 Mg Tablet, 650 MG PO Q4H PRN for PAIN / FEVER Albuterol Sulfate (Albuterol Sulfate Hfa) 8.5 Gm Hfa.aer.ad, 2 PUFFS INH Q4H PRN for SOB/COUGH Guaifenesin (Mucinex) 600 Mg Tab.er.12h, 600 MG PEG BID PRN for COUGH Mag Hydrox/Aluminum Hyd/Simeth (Mylanta Maximum Strength Liq) 355 Ml Oral.susp, 15 ML PO QID PRN for INDIGESTION Melatonin (Melatonin) 10 Mg Capsule, 10 MG PO QHS PRN for SLEEP Oxycodone HCl (Oxycodone HCl) 5 Mg/5 Ml Solution, 5 ML PEG Q4HP PRN for PAIN Allergies Coded Allergies: No Known Allergies (Unverified , 08/14/19) A-FIB/CHADSVASC A-FIB History Current/History of A-Fib/PAF?: Yes Current PO Anticoag Therapy: Yes Age/Risk Factor Scoring CHADSVASC: CHADSVASC Response (Comments) Value Age Risk Factor Age < 65 years old 0 Gender Risk Factor Male 0 Hx of CHF No 0 Hx of HTN No 0 Hx of Stroke/TIA/or VTE No 0 Hx of Diabetes Yes 1 Hx of Vascular Disease No 0 Total 1 Treatment Treatment ordered: Apixaban Tarah Burnette MD Feb 07, 2021 18:05
[2021-02-07] MEDS ORDERED: LEVALBUTEROL 1.25 MG/0.5 ML CONCENTRATE NEB NEB PRN (18:50)
[2021-02-07] MEDS ORDERED: ONDANSETRON 4MG/2ML VIAL IV PRN (19:00)
--- NOTE | 2021-02-07 19:06 | REPVR ---
PROCEDURE INFORMATION: Exam: CTA Chest With Contrast Exam date and time: 02/07/2021 5:50 PM Age: 50 years old Clinical indication: Cough and shortness of breath; Additional info: SOB cough TECHNIQUE: Imaging protocol: Computed tomographic angiography of the chest with contrast. 3D rendering (Not supervised by radiologist): MIP and/or 3D reconstructed images were created by the technologist. Radiation optimization: All CT scans at this facility use at least one of these dose optimization techniques: automated exposure control; mA and/or kV adjustment per patient size (includes targeted exams where dose is matched to clinical indication); or iterative reconstruction. Contrast material: ISOVUE 370; Contrast volume: 100 ml; Contrast route: INTRAVENOUS (IV); COMPARISON: CT ANGIO CHEST 12/15/2020 2:13 PM FINDINGS: Pulmonary arteries: There is opacification of the pulmonary arteries and no evidence of pulmonary embolus. Aorta: There is opacification of the aorta which appears intact. Thyroid: Lymphadenopathy has developed along the left side of the thyroid anterior left mediastinum and left hilum since December. Lungs: There are 3 nodules approximately 1 cm each within the left lung and new since December but similar to January. There is also interstitial infiltrate at the left lung base which has developed. There is a 2 cm nodule contiguous with the pleura at the right apical portion of the lung similar to January. Additional areas of pleural thickening are present. There are large pulmonary nodules throughout the right lung and these have all increased in size. The areas of pleural fluid on the right has decreased. There is consolidation of lung in the right suprahilar location with air bronchograms consistent with pneumonia and malignant infiltration. Heart: There is a pericardial effusion new since December and mildly increased since January. Mediastinal space: There is a very large soft tissue density mass in the subcarinal location that has more than tripled in size since the December examination but similar to January exam and causing severe narrowing of the pulmonary veins and impressing on the left atrium transverse dimension 15 cm /AP 5.5 cm. The lower esophagus is completely obstructed by this large mass. I suspect there may be abscess formation below the obstructed esophagus in an area measuring 3 cm with multiple bubbles and communicating with a collection at the right lower thorax measuring 6 cm with an air-fluid level. This is probably all infected fluid/abscess or necrosis. This has decreased since the January exam. Lymph nodes: Enlarged lymph nodes have further increased along the margin of the heart and periaortic location and subcarinal location. IMPRESSION: 1. Interval development of a large pericardial effusion since December but similar to January. 2. Development of a 15 cm mass in the subcarinal location extending to the right and left hilar region and inferiorly causing obstruction of the esophagus and impressing on the left ventricle and pulmonary veins 15 by 5.5 cm. 3. Probable abscess measuring 3 cm below the level of the obstructed esophagus and communicating with a 6 cm abscess or necrosis at the right lower lung with an air-fluid level. This is also seen in January. 4. Extensive malignant infiltration along the right parahilar region and right pleural surface. 5. No evidence of pulmonary embolus. Electronically signed by: Aris Butler On 02/07/2021 19:06:37 PM
[2021-02-07] MEDS: NS 1,000 ML IV SCH (19:21)
--- NOTE | 2021-02-07 19:21 | REPVR ---
PROCEDURE INFORMATION: Exam: CT Abdomen And Pelvis With Contrast Exam date and time: 02/07/2021 5:50 PM Age: 50 years old Clinical indication: Abdominal pain; Additional info: Abd pain vomiting TECHNIQUE: Imaging protocol: Computed tomography of the abdomen and pelvis with contrast. Radiation optimization: All CT scans at this facility use at least one of these dose optimization techniques: automated exposure control; mA and/or kV adjustment per patient size (includes targeted exams where dose is matched to clinical indication); or iterative reconstruction. Contrast material: ISOVUE 370; Contrast volume: 100 ml; Contrast route: INTRAVENOUS (IV); COMPARISON: No relevant prior studies available. FINDINGS: Tubes, catheters and devices: There is a gastrostomy tube within the anterior stomach. There is no evidence of pneumoperitoneum. Liver: Malignant mass and fluid contiguous with the upper margin of the liver. Gallbladder and bile ducts: There is some contrast within the gallbladder. Pancreas: Normal size pancreas. Spleen: No splenomegaly. Adrenal glands: Normal-sized adrenals. Kidneys and ureters: There is enhancement of both kidneys. Stomach and bowel: Unremarkable. No obstruction. No mucosal thickening. Appendix: No evidence of appendicitis. Vasculature: There is enhancement of the aorta which appears intact. Lymph nodes: There is extensive lymphadenopathy at the demarcus hepatis. Urinary bladder: Normal urinary bladder. Reproductive: Unremarkable as visualized. Bones/joints: There is no evidence of bony abnormality. Soft tissues: There is no evidence of soft tissue abnormality. IMPRESSION: 1. Very large mass lesion subcarinal location and right thorax contiguous with the right diaphragm and liver. 2. Obstructed esophagus with gastrostomy tube in the stomach. Electronically signed by: Aris Butler On 02/07/2021 19:21:20 PM
[2021-02-07] MEDS: MORPHINE 2 MG/ML 1ML VIAL (J2270) IV PRN ×2 (19:24→23:37)
[2021-02-07] MEDS ORDERED: PANTOPRAZOLE 40MG TAB (PROTONIX) PO SCH (21:00)
[2021-02-07] MEDS ORDERED: APIXABAN 2.5 MG TAB (ELIQUIS) PO SCH (21:00)
[2021-02-07] MEDS ORDERED: METOPROLOL SUCC (TopROL XL) 50MG **XL** TAB PO SCH (21:00)
[2021-02-07] MEDS ORDERED: VANCOMYCIN HCL 750 MG, VIAL MATE ADAPTER 1 EACH in NS 250 ML IV ONE (21:00)
[2021-02-07] MEDS ORDERED: SIMVASTATIN 10 MG TAB PO SCH (21:00)
[2021-02-07] MEDS: PANTOPRAZOLE 40MG VIAL (C9113 PER 1) IV SCH (21:02)
[2021-02-07] MEDS: LEVALBUTEROL 1.25 MG/0.5 ML CONCENTRATE NEB NEB SCH (21:30)
[2021-02-07 22:40] VITALS: BP 136/86
[2021-02-07] MEDS: PIPERACILLIN/TAZOBACTAM SOD 3.375 GM in D5W MINI-BAG PLUS 50 ML IV SCH (23:37)
[2021-02-08] VITALS (38 sets, daily range): BP systolic 88–216; BP diastolic 53–149; O2SAT 94
[2021-02-08] MEDS ORDERED: VANCOMYCIN 1000MG/20ML VIAL As Ordered ONE (00:35)
[2021-02-08] MEDS ORDERED: VANCOMYCIN HCL 1,000 MG, VIAL MATE ADAPTER 1 EACH in NS 250 ML IV SCH (04:00)
[2021-02-08] MEDS: MORPHINE 2 MG/ML 1ML VIAL (J2270) IV PRN ×2 (05:28→14:48)
[2021-02-08] MEDS: PIPERACILLIN/TAZOBACTAM SOD 3.375 GM in D5W MINI-BAG PLUS 50 ML IV SCH ×3 (05:29→18:23)
[2021-02-08 05:32] LABS: BASO # 0.1 10^3/uL (0.0-0.2); BASO % 0.6 % (0.0-1.0); EOS # 1.2 10^3/uL (0.0-0.5); EOS % 9.3 % (0.0-3.0); HEMATOCRIT 32.4 % (42.0-52.0); HEMOGLOBIN 9.6 g/dl (13.5-17.5); LYMPH # 1.2 10^3/uL (1.5-5.0); LYMPH % 9.5 % (24.0-44.0); MEAN CORPUSCULAR HEMOGLOBIN 26.9 pg (27.0-33.0); MEAN CORPUSCULAR HGB CONC 29.6 g/dl (32.0-36.5); MEAN CORPUSCULAR VOLUME 90.8 fl (80.0-96.0); MONO # 1.7 10^3/uL (0.0-0.8); MONO % 13.9 % (2.0-8.0); NEUTROPHILS # 8.3 10^3/uL (1.5-8.5); NEUTROPHILS % 66.3 % (36.0-66.0); PLATELET COUNT, AUTOMATED 313 10^3/uL (150-450); RED BLOOD COUNT 3.57 10^6/uL (4.30-6.10)
[2021-02-08 05:55] LABS: WHITE BLOOD COUNT 12.5 10^3/uL (4.0-10.0)
[2021-02-08] MEDS: HumaLOG INSULIN (NovoLOG) PER UNIT SC SCH ×4 (06:00→21:00)
[2021-02-08 06:02] LABS: ALBUMIN 2.7 GM/DL (3.2-5.2); ALT/SGPT 18 U/L (12-78); BILIRUBIN,TOTAL 0.3 MG/DL (0.2-1.0); BLOOD UREA NITROGEN 10 MG/DL (7-18); CALCIUM LEVEL 11.3 MG/DL (8.5-10.1); CARBON DIOXIDE LEVEL 38 MEQ/L (21-32); CHLORIDE LEVEL 102 MEQ/L (98-107); CREATININE FOR GFR 0.62 MG/DL (0.70-1.30); GLOMERULAR FILTRATION RATE > 60.0 (>56); GLUCOSE, FASTING 167 MG/DL (70-100); POTASSIUM SERUM 3.6 MEQ/L (3.5-5.1); SODIUM LEVEL 141 MEQ/L (136-145); TOTAL PROTEIN 7.8 GM/DL (6.4-8.2)
[2021-02-08] MEDS: LEVALBUTEROL 1.25 MG/0.5 ML CONCENTRATE NEB NEB SCH ×4 (07:10→19:40)
[2021-02-08] MEDS ORDERED: VITAMIN D 1,000 INTERNATIONAL UNITS TABLET PO SCH (09:00)
[2021-02-08] MEDS ORDERED: SERTRALINE 100 MG TAB PO SCH (09:00)
--- NOTE | 2021-02-08 09:05 | RADENCPD ---
Date/Time of Encounter Date of Encounter: Feb 08, 2021 Time of Encounter: 08:40 Encounter Spoke with Beltran at bedside and his (via phone) this AM. I spoke with Dr. Burnette previously by phone about his clinical situation, admitted with sepsis, increased work of breathing etc. He is on 4L NC O2 this morning, in moderate distress, tachypneic, he is able to give short answers to questions due to SOB. He does state that he is feeling better since admission yesterday. He denies pain. He continues to have reflux/vomiting of secretions. He is NPO. I reviewed his recent imaging with them which re-demonstrates the large necrotic RLL mass as well as the very large mediastinal adenopathy obstructing the mid- distal esophagus completely. I explained that his plan for palliative RT (5 fractions) to attempt to a lleviate the obstruction is ready to start tomorrow. We agreed that barring clinical deterioration, we would move forward with this in the effort to make him feel better. We did discuss that if he fails to improve clinically on this admission that he would be appropriate for hospice care. His asked about the results of the next generation sequencing which Dr. Armijo ordered to identify any actionable mutations. We agreed that it would be good to hear from Dr. Armijo about this as they still desire treatment if deemed feasible. I also discussed that if he does improve clinically and there are no remaining systemic therapy options, then he would be appropriate for hospice as well. I briefly explained what hospice care would entail and that [id number] focused care is not 'giving up'. Beltran seemed receptive to hospice, his expressed concern that it is premature to consider stopping cancer-directed treatment. We agreed to take things day-by-day for now and hope for clinical improvement. We can advance GOC discussions contingent upon his course. Recommendations: Will proceed with palliative RT to esophagus obstructing mass, treatment will start 02/09/21 (20 Gy in 5 fractions) Medical oncology consult re: systemic therapy options Feeding per PEG reasonable as no [id number] obstruction identified on imaging Will revisit GOC in the coming days Remainder of excellent care per LAWRENCE Lima MD Feb 08, 2021 09:04
[2021-02-08] MEDS: ENOXAPARIN 40MG/0.4ML SYRINGE (J1650 PER 10MG) SC SCH (09:09)
[2021-02-08] MEDS: NS 1,000 ML IV SCH ×2 (09:40→14:50)
--- NOTE | 2021-02-08 13:59 | IPNPDOC ---
Date Seen The patient was seen on 02/08/21. Progress Note SUBJECTIVE: Improved work of breathing some this AM, remains tachycardic, mildly improved WBC. Discussed case in detail with rad/onc (Dr. Byers) and med/onc (Dr. Armijo), both of whom are consulted. Starting palliative RT to esophagus obstructing mass 02/09/21 planned. Denies chest pain, fevers, chills, n/v/d. OBJECTIVE: PHYSICAL EXAMINATION: VS: Please see below CONSTITUTIONAL: SOB with increased exertion or with prolonged speaking, AAO x 3 EYES: PERRLA, EOM intact HENT, MOUTH: Normocephalic, atraumatic, mucous membranes NECK: SUPPLE, no JVD, no lymphadenopathy, no carotid bruit CV: sinus tachycardia, S1S2 normal, no murmurs/rubs/gallops CHEST: port in place RESPIRATORY: Rhonchi b/l in upper and lower lung carranza, no rales/wheezes GI: PEG tube in place, area around tube appears clean, well healing. Nontender to palpation abdomen, diffuse, BS positive in 4 quadrants, no rebound or guarding, no organomegaly : Deferred MUSCULOSKELETAL: Normal ROM. No cyanosis, clubbing, swelling, joint deformity, extremity edema INTEGUMENTARY: Intact, no rashes, no lesions, no erythema NEUROLOGIC: Cranial Nerves II-XII are intact, no focal deficits LABORATORY DATA: Please see below IMAGING: Echocardiogram 02/08/21: Pending CTA chest: 1. Interval development of a large pericardial effusion since December but similar to January. 2. Development of a 15 cm mass in the subcarinal location extending to the right and left hilar region and inferiorly causing obstruction of the esophagus and impressing on the left ventricle and pulmonary veins 15 by 5.5 cm. 3. Probable abscess measuring 3 cm below the level of the obstructed esophagus and communicating with a 6 cm abscess or necrosis at the right lower lung with an air-fluid level. This is also seen in January. 4. Extensive malignant infiltration along the right parahilar region and right pleural surface. 5. No evidence of pulmonary embolus. CT abd/pelvis with contrast: 1. Very large mass lesion subcarinal location and right thorax contiguous with the right diaphragm and liver. 2. Obstructed esophagus with gastrostomy tube in the stomach. CXR: Stable pleural and parenchymal opacities on the right. 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 Millan) admitted under inpatient status for SOB and recent hypoxic respiratory failure 2/2 to HCAP, sepsis r/o worsened pulmonary abscess, abdominal pain r/o acute intrabdominal pathology with recent feeding tube placement. PLAN: SOB and recent hypoxic respiratory failure 2/2 to Stage IV lung CA, HCAP, sepsis -Currently 100% on 4 L NC, will attempt to titrate to 3 L NC. -new imaging above -C/w treatment plan below for individual issues Acute hypoxic respiratory failure 2/2 to HCAP, pulmonary abscess vs. necrotic lung mass, sepsis. Cannot r/o pericardial effusion as factor as well currently -Hx of right pleural effusion 2/2 to malignancy vs. infection, s/p US guided thoracentesis and chest tube placement/removal 12/2020. Also hx of recurrent PNA -Currently 100% on 4 L NC, RR 22-24, rhonchi, decreased work of breathing but SOB with sentences or exertion remains -Swallowing eval: no aspiration with thin liquids -LA elevated 2.2, tachycardia, WBC 12.5 -Imaging above -Discussed imaging with Dr. Duong. No surgical treatment at this time, end s tage. Recommended f/u echocardiogram to assess pericardial effusion again -Discussed case with Dr. Gary, pulmonology. Also recommended repeat echocardiogram. Poor prognosis, not much to do at this time. Defer to heme/onc -F/u sputum and blood cultures, echocardiogram, daily labs -C/w vancomycin, zosyn, IVFs at 100 cc/hr, levalbuterol ATC and PRN, zofran. Abdominal pain -S/p feeding tube placement but no issues seen on CT abd/pelvis with G tube -Could be pain 2/2 to lymphadenopathy per rad/onc as well -Nausea, vomiting resolved -CT abd/pelvis with contrast above, no CI to start tube feedings -See how he does with bolus feedings as suggested by nutrition -Daily CMP. Zofran PRN Dysphagia 2/2 esophageal compression by extrinsic mass, supposed to start radiation for extrinsic mass (Dx 01/19- hospitalization) -To start palliative RT to esophagus obstructing mass, treatment will start 02/09/21 (20 Gy in 5 fractions) -ST: cleared for thin liquids on reassessment today -Starting tube feedings today as per recommendations by nutrition, f/u closely Stage IV squamous cell carcinoma of the lung s/p radiation/chemo -Follows with Dr. Armijo, awaiting gene sequencing -Discussed case in detail with him today- consulted to see -Dr. Byers consulted for palliative radiation discussed above DM type II -Started on tube feedings Jevity- watch BS closely -AC/HS ISS, FS, thin liquid diet Atrial fibrillation -currently NSR -Lovenox px dosing , holding PO BB -If does well with tube feeding (no residuals), restart PO meds via GT HLD -Holding home statin -If does well with tube feeding (no residuals), restart PO meds via GT Depression / Anxiety / Panic attacks -Holding home meds for now -If does well with tube feeding (no residuals), restart PO meds via GT GERD -PPI IV DVT px -Lovenox DISPOSITION: Admitted as acute inpatient to PCU. Med/onc, rad/onc consulted. F/u recommendations. VS, I&O, 24H, Fishbone Vital Signs/I&O Vital Signs Date Time Temp Pulse Resp B/P (MAP) Pulse Ox O2 Delivery O2 Flow Rate FiO2 02/08/21 12:13 97.5 123 22 112/60 (77) 100 Nasal Cannula 4.0 I&O- Last 24 Hours up to 6 AM 02/08/21 06:00 Intake Total 620 ml Output Total 400 ml Balance 220 ml Laboratory Data 24H LABS Laboratory Tests 2 02/07/21 15:31: Immature Granulocyte % (Auto) 0.4, Neutrophils (%) (Auto) 65.1, Lymphocytes (%) (Auto) 11.2L, Monocytes (%) (Auto) 12.7H, Eosinophils (%) (Auto) 10.2H, Basophils (%) (Auto) 0.4, Neutrophils # (Auto) 10.2H, Lymphocytes # (Auto) 1.8, Monocytes # (Auto) 2.0H, Eosinophils # (Auto) 1.6H, Basophils # (Auto) 0.1, Nucleated Red Blood Cells % (auto) 0.0, Prothrombin Time 14.5H, Prothromb Time International Ratio 1.10, Activated Partial Thromboplast Time 31.2, Anion Gap 3L, Glomerular Filtration Rate > 60.0, Calcium Level 12.3H, Total Bilirubin 0.3, Direct Bilirubin < 0.1, Aspartate Amino Transf (AST/SGOT) 34, Alanine Aminotransferase (ALT/SGPT) 18, Alkaline Phosphatase 74, Total Creatine Kinase 94, Creatine Kinase MB < 1.0, Creatine Kinase MB Relative Index 1.06, Troponin I < 0.02, LA-Ume-Z-Type Natriuretic Peptide 244H, Total Protein 7.6, Albumin 2.9L, Albumin/Globulin Ratio 0.6, Thyroid Stimulating Hormone (TSH) 1.120 02/07/21 15:32: Blood Gas Bicarbonate Standard 34.4H, Arterial Blood pH 7.450, Arterial Blood Partial Pressure CO2 53.3H, Arterial Blood Partial Pressure O2 131.9H, Arterial Blood Total CO2 37.8H, Arterial Blood HCO3 36.2H, Arterial Blood Base Excess 10.6H, Arterial Blood Oxygen Saturation 99.2H 02/07/21 15:37: SARS Antigen (LFIA) NEGATIVE 02/07/21 17:32: Lactic Acid Level 2.4*H 02/07/21 18:38: Urine Color YELLOW, Urine Appearance CLEAR, Urine pH 7.0, Urine Specific [place] 1.056, Urine Protein 1+H, Urine Glucose (UA) NEGATIVE, Urine Ketones NEGATIVE, Urine Blood NEGATIVE, Urine Nitrite NEGATIVE, Urine Bilirubin NEGATIVE, Urine Urobilinogen 0.2, Urine Leukocyte Esterase NEGATIVE, Urine WBC (Auto) 2, Urine RBC (Auto) 1, Urine Hyaline Casts (Auto) 0, Urine Bacteria (Auto) NEGATIVE, Urine Squamous Epithelial Cells 0, Urine Mucus (Auto) SMALL, Urine Sperm (Auto) 02/07/21 19:29: Bedside Glucose (Misc Panel) 137H 02/07/21 22:51: Lactic Acid Followup at 4 Hours 2.2*H 02/07/21 22:54: Bedside Glucose (Misc Panel) 158H 02/08/21 05:11: Immature Granulocyte % (Auto) 0.4, Neutrophils (%) (Auto) 66.3H, Lymphocytes (%) (Auto) 9.5L, Monocytes (%) (Auto) 13.9H, Eosinophils (%) (Auto) 9.3H, Basophils (%) (Auto) 0.6, Neutrophils # (Auto) 8.3, Lymphocytes # (Auto) 1.2L, Monocytes # (Auto) 1.7H, Eosinophils # (Auto) 1.2H, Basophils # (Auto) 0.1, Nucleated Red Blood Cells % (auto) 0.0, Anion Gap 1L, Glomerular Filtration Rate > 60.0, Calcium Level 11.3H, Total Bilirubin 0.3, Aspartate Amino Transf (AST/SGOT) 13, Alanine Aminotransferase (ALT/SGPT) 18, Alkaline Phosphatase 65, Total Protein 7 .8, Albumin 2.7L, Albumin/Globulin Ratio 0.5 02/08/21 08:30: Lactic Acid Level 2.2*H 02/08/21 12:31: Bedside Glucose (Misc Panel) 155H 02/08/21 12:54: CBC/BMP Laboratory Tests 02/07/21 15:31 02/08/21 05:11 Microbiology Microbiology 02/07/21 Gram Stain, Received Pending 02/07/21 Sputum Culture, Received Pending 02/07/21 Blood Culture, Received Pending 02/07/21 Blood Culture, Received Pending 02/07/21 Respiratory Virus Panel (PCR) (RAMIN) - Final, Complete Current Medications Current Medications Medications (Trade) Dose Ordered Sig/[place] Route PRN Reason Start Time Stop Time Status Last Admin Dose Admin Apixaban (Eliquis) 2.5 mg BID PO 02/07/21 21:00 02/07/21 19:11 DC Cefepime HCl 1 gm/ Dextrose 50 ml @ 100 mls/hr Q12H IV 02/07/21 17:55 02/07/21 18:51 DC Dextrose (Dextrose 50%) 25 ml ASDIRECTED PRN IV SEE LABEL COMMENTS 02/07/21 18:00 Enoxaparin Sodium (Lovenox) 40 mg DAILY SC 02/08/21 09:00 02/08/21 09:09 Glucagon (Glucagon) 1 mg ASDIRECTED PRN SC SEE LABEL COMMENTS 02/07/21 18:00 Glucose (Glucose) 16 GM ASDIRECTED PRN PO SEE LABEL COMMENTS 02/07/21 18:00 Home Med (Med Rec Complete!) ASDIRECTED XX 02/07/21 18:05 02/07/21 18:06 DC Insulin Human Lispro (HumaLOG INSULIN) SEE PROTOCOL TABLE AC SC 02/08/21 17:30 Insulin Human Lispro (HumaLOG INSULIN) SEE PROTOCOL TABLE Q6H SC 02/07/21 18:00 02/08/21 13:14 DC 02/08/21 12:00 Insulin Human Lispro (HumaLOG INSULIN) SEE PROTOCOL TABLE QHS SC 02/08/21 21:00 Levalbuterol HCl (Xopenex Neb) 1.25 mg Q2HP PRN NEB SOB/WHEEZING 02/07/21 18:50 Levalbuterol HCl (Xopenex Neb) 1.25 mg QID NEB 02/07/21 21:00 02/08/21 11:52 Metoprolol Succinate (TopROL XL) 50 mg BID PO 02/07/21 21:00 02/07/21 19:18 DC Morphine Sulfate (Morphine Sulfate Inj) 1 mg Q6H PRN IV MODERATE PAIN (PS 5-7) 02/07/21 19:05 02/08/21 05:28 Ondansetron HCl (ZOFRAN INJection) 4 mg Q4HP PRN IV NAUSEA OR VOMITING 02/07/21 19:00 02/07/21 19:23 Pantoprazole Sodium (Protonix) 40 mg Q24H IV 02/07/21 20:00 02/07/21 21:02 Pantoprazole Sodium (Protonix) 40 mg QHS PO 02/07/21 21:00 02/07/21 19:18 DC Piperacillin Sod/ Tazobactam Sod 3.375 gm/Dextrose 50 ml @ 50 mls/hr Q6H IV 02/08/21 01:00 02/08/21 05:29 Sertraline HCl (Zoloft) 100 mg DAILY PO 02/08/21 09:00 02/07/21 19:18 DC Simvastatin (Zocor) 10 mg QHS PO 02/07/21 21:00 02/07/21 19:18 DC Sodium Chloride 1,000 ml @ 100 mls/hr Q10H IV 02/07/21 18:05 02/07/21 19:21 Vancomycin HCl 1000 mg/IV Miscellaneous Supplies 1 each/ Sodium Chloride 270 ml @ 270 mls/hr Q8H IV 02/08/21 04:00 02/08/21 13:47 DC 02/08/21 03:18 Vancomycin HCl 1000 mg/IV Miscellaneous Supplies 1 each/ Sodium Chloride 270 ml @ 270 mls/hr Q8H IV 02/08/21 14:00 Vitamin D (Vitamin D) 2,000 units DAILY PO 02/08/21 09:00 02/07/21 19:18 DC Allergies Coded Allergies: No Known Allergies (Unverified , 08/14/19) Tarah Burnette MD Feb 08, 2021 13:59
[2021-02-08] MEDS ORDERED: LORazepam 2 MG/ML VIAL IV STA (15:17)
[2021-02-08] MEDS: VANCOMYCIN HCL 1,000 MG, VIAL MATE ADAPTER 1 EACH in NS 250 ML IV SCH ×2 (15:39→23:58)
[2021-02-08] MEDS ORDERED: MIDAZOLAM INJ 2MG/2ML VIAL (J2250 PER 1MG) IV ONE (19:00)
[2021-02-08] MEDS ORDERED: LIDOCAINE 1% MDV 20ML VIAL SC ONE (19:10)
[2021-02-08] MEDS ORDERED: BUPIVACAINE HCL 0.5% 10ML VIAL As Ordered ONE (19:22)
[2021-02-08] MEDS ORDERED: BUPIVACAINE LIPOSOME/PF 1.3% 20ML VIAL (13.3MG/ML)(EXPAREL)(C9290 PER1MG) As Ordered ONE (19:22)
[2021-02-08] MEDS ORDERED: ETOMIDATE INJ 20MG/10ML VIAL As Ordered ONE (20:59)
[2021-02-08] MEDS ORDERED: LIDOCAINE 2% 100MG/5ML SDV (FOR ANES.) As Ordered ONE (20:59)
[2021-02-08] MEDS ORDERED: propofoL 200 MG/20 ML VIAL As Ordered ONE (20:59)
[2021-02-08] MEDS ORDERED: PHENYLephrine 500MCG 5ML (100MCG/ML) SYRINGE As Ordered ONE (20:59)
[2021-02-08] MEDS ORDERED: MIDAZOLAM INJ 2MG/2ML VIAL (J2250 PER 1MG) As Ordered ONE (20:59)
[2021-02-08] MEDS ORDERED: ROCURONIUM BROMIDE 50 MG/5 ML VIAL As Ordered ONE (20:59)
[2021-02-08] MEDS ORDERED: NOREPINEPHRINE 4 MG/4 ML AMP As Ordered ONE (20:59)
[2021-02-08] MEDS ORDERED: dexameTHASONE 4 MG/ML 1ML VIAL (J1100 PER 1MG) As Ordered ONE (20:59)
[2021-02-08] MEDS ORDERED: fentaNYL 100 MCG/2 ML INJECTION (J3010) As Ordered ONE (20:59)
[2021-02-08] MEDS ORDERED: NORCO, ANEXSIA 5/325MG TABLET (HYDROcodone/ACETAMINOPHEN) PO PRN (21:25)
[2021-02-08] MEDS ORDERED: BISACODYL 10 MG SUPP PR PRN (21:25)
[2021-02-08] MEDS ORDERED: PERCOCET 5MG/325MG TAB PO PRN ×2 (21:25)
[2021-02-08 21:33] LABS: APPEARANCE, BODY FLUID HAZY (CLEAR); SOURCE, BODY FLUID PERICARDIAL
[2021-02-08] MEDS: propofoL 1,000 MG in IV 1 EA IV SCH (22:05)
[2021-02-08 22:07] LABS: HEMATOCRIT 30.2 % (42.0-52.0); HEMOGLOBIN 8.7 g/dl (13.5-17.5); MEAN CORPUSCULAR HEMOGLOBIN 26.9 pg (27.0-33.0); MEAN CORPUSCULAR HGB CONC 28.8 g/dl (32.0-36.5); MEAN CORPUSCULAR VOLUME 93.5 fl (80.0-96.0); PLATELET COUNT, AUTOMATED 290 10^3/uL (150-450); RED BLOOD COUNT 3.23 10^6/uL (4.30-6.10); WHITE BLOOD COUNT 10.8 10^3/uL (4.0-10.0)
[2021-02-08] MEDS: KCL 20MEQ IN D5/NS 1000ML 1,000 ML IV SCH (22:08)
[2021-02-08] MEDS: PANTOPRAZOLE 40MG VIAL (C9113 PER 1) IV SCH (22:09)
[2021-02-08] MEDS ORDERED: fentaNYL 100 MCG/2 ML INJECTION (J3010) IV PRN ×2 (22:10→22:20)
[2021-02-08] MEDS ORDERED: ONDANSETRON 4MG/2ML VIAL IV PRN ×2 (22:10→22:20)
[2021-02-08] MEDS ORDERED: LR 1,000 ML IV SCH ×2 (22:10→22:20)
[2021-02-08 22:11] LABS: LDH, BODY FLUID 2224 U/L (NOT ESTABLISHED); SOURCE, BODY FLUID GLUCOSE PERICARDIAL; SOURCE, BODY FLUID LDH PERICARDIAL; SOURCE, BODY FLUID TOT PROTEIN PERICARDIAL; TOTAL PROTEIN, BODY FLUID 5.5 G/DL (NOT ESTABLISHED)
[2021-02-08] MEDS: MIDAZOLAM INJ 2MG/2ML VIAL (J2250 PER 1MG) IV PRN (22:17)
[2021-02-08] MEDS ORDERED: PROPOFOL 1,000 MG/100 ML VIAL IV SCH (22:25)
[2021-02-08 22:28] LABS: EOSINOPHILS 1 % (0-3); LYMPHOCYTES 7 % (16-44); METAMYELOCYTES 1 % (0-0); MONOCYTES 5 % (0-5); NEUTROPHILS 73 % (28-66)
[2021-02-08 22:29] LABS: ANISOCYTOSIS 2+; PLATELET ESTIMATE NORMAL (NORMAL)
[2021-02-08 22:50] LABS: BLOOD UREA NITROGEN 12 MG/DL (7-18); CALCIUM LEVEL 10.6 MG/DL (8.5-10.1); CARBON DIOXIDE LEVEL 35 MEQ/L (21-32); CHLORIDE LEVEL 103 MEQ/L (98-107); CREATININE FOR GFR 0.74 MG/DL (0.70-1.30); GLOMERULAR FILTRATION RATE > 60.0 (>56); GLUCOSE, FASTING 284 MG/DL (70-100); SODIUM LEVEL 141 MEQ/L (136-145)
[2021-02-08] MEDS: NOREPINEPHRINE BITARTRATE 8 MG in D5W 492 ML IV SCH (22:52)
[2021-02-08 23:01] LABS: ABG BASE EXCESS 3.4 (-2.0-2.0); ABG HCO3 29.7 MEQ/L (22.0-26.0); ABG O2 SATURATION 99.3 % (95.0-99.0); ABG PARTIAL PRESSURE CO2 54.4 mmHg (35.0-45.0); ABG PARTIAL PRESSURE O2 145.8 mmHg (75.0-100.0); ABG STANDARD HCO3 27.5 MEQ/L (22.0-26.0); ABG TOTAL CO2 31.4 MEQ/L (22.0-29.0); ABG pH (ARTERIAL) 7.355 UNITS (7.350-7.450)
[2021-02-08] MEDS: KETOROLAC 30 MG/ML 1ML VIAL IV SCH (23:58)
[2021-02-09] VITALS (90 sets, daily range): BP systolic 84–168; BP diastolic 43–95
[2021-02-09] MEDS: MIDAZOLAM INJ 2MG/2ML VIAL (J2250 PER 1MG) IV PRN ×5 (01:55→20:59)
[2021-02-09] MEDS: PIPERACILLIN/TAZOBACTAM SOD 3.375 GM in D5W MINI-BAG PLUS 50 ML IV SCH ×4 (02:16→18:04)
[2021-02-09] MEDS: propofoL 1,000 MG in IV 1 EA IV SCH ×3 (04:35→22:29)
[2021-02-09 04:37] LABS: HEMATOCRIT 28.9 % (42.0-52.0); HEMOGLOBIN 8.5 g/dl (13.5-17.5); MEAN CORPUSCULAR HEMOGLOBIN 26.9 pg (27.0-33.0); MEAN CORPUSCULAR HGB CONC 29.4 g/dl (32.0-36.5); MEAN CORPUSCULAR VOLUME 91.5 fl (80.0-96.0); PLATELET COUNT, AUTOMATED 281 10^3/uL (150-450); RED BLOOD COUNT 3.16 10^6/uL (4.30-6.10); WHITE BLOOD COUNT 11.5 10^3/uL (4.0-10.0)
[2021-02-09 04:55] LABS: LYMPHOCYTES 9 % (16-44); METAMYELOCYTES 1 % (0-0); MONOCYTES 8 % (0-5); NEUTROPHILS 69 % (28-66); PLATELET ESTIMATE NORMAL (NORMAL)
[2021-02-09 04:56] LABS: ANISOCYTOSIS 2+
[2021-02-09 05:08] LABS: ALBUMIN 2.3 GM/DL (3.2-5.2); ALT/SGPT 34 U/L (12-78); BILIRUBIN,TOTAL 0.4 MG/DL (0.2-1.0); BLOOD UREA NITROGEN 11 MG/DL (7-18); CALCIUM LEVEL 10.8 MG/DL (8.5-10.1); CARBON DIOXIDE LEVEL 35 MEQ/L (21-32); CHLORIDE LEVEL 103 MEQ/L (98-107); CREATININE FOR GFR 0.74 MG/DL (0.70-1.30); GLOMERULAR FILTRATION RATE > 60.0 (>56); GLUCOSE, FASTING 272 MG/DL (70-100); POTASSIUM SERUM 3.9 MEQ/L (3.5-5.1); SODIUM LEVEL 141 MEQ/L (136-145); TOTAL PROTEIN 6.3 GM/DL (6.4-8.2)
[2021-02-09] MEDS: KETOROLAC 30 MG/ML 1ML VIAL IV SCH ×4 (05:31→22:42)
[2021-02-09] MEDS: VANCOMYCIN HCL 1,000 MG, VIAL MATE ADAPTER 1 EACH in NS 250 ML IV SCH ×3 (05:32→22:43)
[2021-02-09 05:54] LABS: ABG BASE EXCESS 7.7 (-2.0-2.0); ABG HCO3 33.5 MEQ/L (22.0-26.0); ABG O2 SATURATION 99.4 % (95.0-99.0); ABG PARTIAL PRESSURE CO2 54.4 mmHg (35.0-45.0); ABG STANDARD HCO3 31.5 MEQ/L (22.0-26.0); ABG TOTAL CO2 35.1 MEQ/L (22.0-29.0); ABG pH (ARTERIAL) 7.407 UNITS (7.350-7.450)
--- NOTE | 2021-02-09 07:46 | REP ---
INDICATION: Intubated. COMPARISON: 01/03/2021 PA and lateral chest, 02/07/2021 portable chest, 02/08/2021 portable chest. TECHNIQUE: Portable AP chest with the patient semi upright. FINDINGS: There is pleural thickening along the right lateral chest wall and a large opacity occupying the inferior half of the right lung. This is unchanged from the comparison studies. There is a small focal patchy density inferiorly in the left lung, unchanged. There is a left subclavian central venous catheter with its tip in the superior vena cava in satisfactory position, unchanged. There is a right IJ Kuluuy-[id number]-Eodn catheter with the tip in the right atrium in satisfactory position, unchanged. IMPRESSION: No significant change from the comparison studies. <Electronically signed by Nasir Zambrano > 02/09/21 0720
[2021-02-09] MEDS ORDERED: FUROSEMIDE 40MG/4ML VIAL (J1940) IV ONE (08:00)
[2021-02-09] MEDS: LEVALBUTEROL 1.25 MG/0.5 ML CONCENTRATE NEB NEB SCH ×4 (08:01→19:45)
--- NOTE | 2021-02-09 08:36 | CR ---
CONSULTATION DATE: 02/08/2021 REQUESTING PHYSICIAN/REASON FOR CONSULTATION: The patient is seen at the urgent request of the Hospitalist Service, Dr. Burnette for shortness of breath and an echocardiogram that now shows a pericardial tamponade with compression. HISTORY OF PRESENT ILLNESS: The patient is now a 50-year-old black male who I first met in September 2019 when he was found to have a poorly differentiated squamous cell carcinoma of the right lung which was extensive, nearly occupying the entire right chest and lower lobe. He was brought to the Emergency Room yesterday with increasing shortness of breath, not being able to lie flat. He was found to have a small pleural effusion and what I considered a small pericardial effusion. Nonetheless, I asked for an echocardiogram to be undertaken and it shows right side chamber compression. As he was in acute respiratory distress this evening, I attempted to undertaken a percutaneous tube pericardiostomy but because of the extreme respiratory variation in his pericardium I could not safely pass the needle into the pericardium even under echocardiogram control. I spoke with the , explained to her that this was a desperate situation in any case as he has inoperable cancer which is quite extensive and has not responded to chemoradiation. I did give her the choice of an operative procedure versus doing nothing and comfort care. After speaking with her , Mr. Suresh, they decided to opt for surgical intervention. PAST MEDICAL HISTORY: Diabetes, depression, tobacco abuse, atrial fibrillation, previously on Eliquis. PAST SURGICAL HISTORY: Right sided port placement. ALLERGIES: None. HABITS: He used to smoke 1 1/2 to 2 packs of Daniels's per day. He used to drink but stopped in 2018. He did not use illicit drugs. TRAVEL HISTORY: He was born in [place] and has been all over the [facility]. OCCUPATIONAL HISTORY: He used to work at a [employer] There is no convincing asbestos exposure. He has a positive travel history to [facility] along with the [place] and [place]. He has one dog and no birds or cats. FAMILY HISTORY: Significant for his father dying of pancreatic cancer, his mother of uterine cancer and a sister dying of an unknown cancer with pneumonia. REVIEW OF SYSTEMS: Not accomplished. PHYSICAL EXAMINATION: GENERAL: Well-developed, well-nourished black male in acute respiratory distress. Hardly able to speak in sentences. VITAL SIGNS: Temperature is 97.8, heart rate of 100 to 146, sinus rhythm, respiratory rate 40 without the use of accessory muscles, he is 92% saturation on 6 liters nasal cannula. His blood pressure is 154/89. HEENT: Eyes: Pupils equal, round and reactive to light. Extraocular movements are intact. Sclera nonicteric. Nose without deformity. Mouth shows the mucous membranes to be dry but pink. NECK: Supple. I do not detect jugular venous distention sitting in a 45 degree position. Trachea is midline. There is no subcutaneous emphysema. LUNGS: Loud rhonchorous sounds throughout. Percussion was dull on the right and I could not tell on the left. CARDIAC: Obscured by all the very loud rhonchorous sounds. I doubt there was a PMI. ABDOMEN: Soft, nontender. Bowel sounds are hypoactive but positive. EXTREMITIES: No pretibial edema. No calf tenderness. No differential swelling of the upper extremities. SKIN: Warm, dry, and perfuse without cyanosis or mottling including that of the nail beds and knees. NEUROLOGIC: Gross motor and gross sensation intact. PSYCHIATRIC: Shows him to be awake, alert, able to converse with his . INVESTIGATIONS: His white count is 12.5, coming down from 17.6 yesterday on admission. Hemoglobin and hematocrit are 9.8 and 32.4, unchanged from yesterday with a platelet count of 313,000. Differential shows 66% neutrophils, 9% lymphocytes and 13% monocytes. There are no immature forms and no toxic granulations. His chemistries today showed nearly normal electrolytes with a total CO2 of 38 and BUN and creatinine of 10 and 0.82. Glucose is 197. His lactic acid this morning at 8 was 2.2 and at 1 p.m. was 2.4. Calcium is 11.3, albumin of 2.7. He has been hypercalcemic for the last few months from his metastatic carcinoma. Chest CT shows a small to moderate pericardial effusion, mostly posteriorly and inferiorly. There is a large mass occupying nearly the entire right lower hemithorax. IMPRESSION: 1. Pericardial tamponade. 2. Widely metastatic squamous cell carcinoma. 3. Near respiratory failure. 4. Lung abscess and/or necrosis right lower lobe, probably the latter. DISCUSSION: My hand has been forced to take him to the Operating Room under anesthesia. I will try again to undertake a percutaneous tube pericardiostomy. If that is not successful, I will do an open tube pericardiostomy. There is no place to put a pericardial window as the entire right chest is occupied by a mass and I will not be able to get to the left chest through a subxiphoid incision. He is not a candidate for thoracoscopic tube pericardiostomy as will not tolerate one lung anesthesia since there is so little right lung left. It is almost an impossible and tenable situation. I am very concerned that after intubation for the procedure he will not be able to extubated at least not soon. I have explained this to his that he may end up on a ventilator and succumbing on the ventilator. She does wish to proceed.
[2021-02-09] MEDS: DOCUSATE SODIUM 100MG CAPSULE PO SCH ×2 (08:40→20:16)
--- NOTE | 2021-02-09 08:49 | RO ---
OPERATIVE NOTE DATE OF OPERATION: 02/08/2021 PREOPERATIVE DIAGNOSIS: Need for vascular access for pressor therapy. POSTOPERATIVE DIAGNOSIS: Need for vascular access for pressor therapy. PROCEDURE: Insertion of left subclavian central line. SURGEON: Mathew Duong MD [employer] RECORD CLERK: ANESTHESIA: DESCRIPTION OF PROCEDURE: With the patient still sedated under general anesthesia the left infraclavicular area was prepped and draped in usual sterile fashion. Vein was found on second pass and wire was placed with production of PVCs. Tract was dilated and triple lumen catheter was placed without difficulty. Ports were aspirated and flushed catheter secured to the chest wall with two 3-0 silk sutures. The patient tolerated the procedure well and left the operating room in satisfactory condition to the recovery room.
[2021-02-09] MEDS: CHLORHEXIDINE GLUCONATE 0.12 % 15ML UDC (PERIDEX ORAL RINSE) MT SCH ×2 (08:54→20:15)
[2021-02-09] MEDS: ENOXAPARIN 40MG/0.4ML SYRINGE (J1650 PER 10MG) SC SCH (08:55)
[2021-02-09] MEDS: HumaLOG INSULIN (NovoLOG) PER UNIT SC SCH ×4 (08:59→20:16)
--- NOTE | 2021-02-09 09:26 | CCN ---
CRITICAL CARE NOTE DATE: 02/08/2021 START TIME: 2109 STOP TIME: 2144 SUBJECTIVE: I attended Tomer Suresh here in the Intensive Care Unit. Patient has been examined and chart reviewed. I spoke at length with Dr. Banerjee from Anesthesia as well as Dr. Duong from Thoracic Surgery and the nurses at the bedside. Essentially, this is a 50-year-old gentleman with very advanced unresectable non-small cell lung cancer. He has multiple areas of necrotic tumor that are quite massive in the right chest as well as the mediastinum. He is known to have complete obstruction of his esophagus by a mediastinal mass and was scheduled for localized radiation therapy for that but his status was too unstable. He has progressive difficulties with pericardial effusion. An attempt was made at a bedside needle aspirate earlier this evening. Due to his respiratory status that was unsuccessful and he was taken to the OR. He was intubated there unable to be extubated postop. He did require a pericardial window. He did receive 2 1/2 liters of Crystalloid and required Levophed drip. He is currently still on Levophed. Ventilator adjustments were made by myself. Arterial blood gas is pending. No blood gas is available from the OR. A-line as well as a left subclavian central venous catheter was placed by anesthesia, chest x-ray shows lines and tubes in good position and no change in his extensive tumors and abscesses. OBJECTIVE: On exam, he is ill-appearing. Heart rate is 120, blood pressure currently 140 on 15 mcg of Levophed and this is being weaned. Pupils do react. Sclera clear. Trachea is in the midline. Chest shows near absence of breath sounds in the right chest. The left chest has some rhonchi with some mid expiratory wheezing. The right chest does not expand well. There is a pericardial tube in place. Cardiac exam is tachycardic, generally regularly. Peripheral pulses diminished but palpable. Abdomen is quiet. Bowel sounds minimal at best currently. Extremities: No cyanosis or clubbing. Neurologic: He is still sedate from the OR. LABORATORY DATA: Repeat laboratories currently pending. ASSESSMENT: The most pressing problems requiring my presence at the bedside: 1. Respiratory failure status post pericardial window. 2. Very advanced Stage IV non-small cell lung cancer with multiple abscesses, necrotic tumor and esophageal obstruction secondary to tumor burden. 3. Status post pericardial window. At this point we will await his repeat laboratories. We will wean his Levophed as able. We will assure adequate volume resuscitation. He had a lactic acid at 1255 which was only 2.4. At this point he is quite critically ill. I see according to the chart that he had a discussion with Dr. Byers earlier this morning regarding possible Hospice and would appear that is most appropriate but it appears that his is awaiting word from Medical Oncology regarding the slim possibility of immunologic therapy. At this point, I am in full agreement with his current antimicrobials. Will proceed as outlined above. He is quite critically ill and there is a high likelihood he will not survive this hospitalization. I left the bedside at 2145 hours.
--- NOTE | 2021-02-09 10:08 | RO ---
OPERATIVE NOTE DATE OF OPERATION: 02/08/2021 PREOPERATIVE DIAGNOSIS: Pericardial tamponade. POSTOPERATIVE DIAGNOSIS: Pericardial tamponade. PROCEDURE: Open tube pericardiostomy after attempt with percutaneous tube pericardiostomy. SURGEON: Mathew Duong MD STOCK HOLDER: ANESTHESIA: FINDINGS: Under direct echocardiographic control, a needle was placed. I found clear fluid and a wire was placed without difficulty. However, I could not dilate the tract secondary to his tissue trigger and maybe overlying carcinoma. No matter how hard I tried, I could not dilate the tract and therefore I had to turn to an open procedure. DESCRIPTION OF PROCEDURE: Under satisfactory general anesthesia with an arterial line in place, the patient was prepped and draped in the usual sterile fashion. Echocardiographic windows were chosen and the fluid within the pericardium was found and a wire was placed. An incision was made and the tract was dilated with a clamp. A dilator was then placed over the wire. I could not pass the dilator past the linea alba or the pericardium. It turned out later it was into the pericardium that I could not pass the dilator. No matter how hard I tried, it would not dilate and I did not want to continue to force it for fear of impaling the heart. Therefore an incision was made over the lower portion of the sternum and xiphoid. Incision was carried down to the subcutaneous tissue and linea alba was divided. The xiphoid was removed as was the distal sternum. Hemostasis was achieved with electrocautery with extreme care being taken not to touch the wire that was already in place. I never saw the wire entrance. However, I was able to visualize the pericardium which was incised and over 50 mL of fluid were removed. Pericardiostomy was then enlarged and a #24 curved tube was placed. Tumor occupies his entire right chest and there was no room to place a pericardial window. I could not get to the left chest through the subxiphoid incision. The linea alba was then closed with running 0 Vicryl suture, the subcutaneous incision by 3-0 Vicryl suture and the skin closed with 3-0 Monocryl subcuticular suture. The incision was infiltrated with Exparel. The patient gratifyingly tolerated the procedure well and left the operating room in satisfactory condition intubated.
--- NOTE | 2021-02-09 10:16 | CCN ---
CRITICAL CARE NOTE DATE: 02/09/2021 START TIME: 824 STOP TIME: 903 SUBJECTIVE: I again attended Tomer Suresh here in the Intensive Care Unit. Patient has been examined. Chart reviewed. I spoke at length with the nurse at the bedside. T-max overnight 100 degrees. Blood pressure 106 to the 150s. He is still on a weaning dose of Levophed. Heart rate 80s to the low 100s, generally with a sinus mechanism. Respiratory rate about 20. Ins and outs midnight to midnight 548 mL in with 755 mL out, but this is only since being in the Intensive Care Unit. Since midnight, he has had 1,279 mL in with 255 mL out. Chest x-ray shows lines and tubes in good position. I do believe there are some increased markings in the left chest today. Most recent laboratories show a white blood cell count of 11.5, hemoglobin 8.5, platelet count 281,000, 69% segs, 13% bands today. Sodium 141, potassium 3.9, chloride 103, CO2 35, BUN 11, creatinine 0.74. Lactic acid mildly elevated still this morning at 3.3. Calcium 10.8. Albumin 2.3. Blood gas done on a PRVC, rate of 16, tidal volume 400, PEEP of 5, FiO2 of 30% has a pH of 7.407, pCO2 54.4, and pO2 of 164.0, saturation 99.4%. Pathology of his pleural fluid biopsy are pending. OBJECTIVE: GENERAL: He is sedate but arousable. He remains on a propofol drip. HEENT: Pupils are reactive. Sclera clear. Trachea is in the midline. CHEST: Chest shows essentially no expansion on the right. Left chest does have some inspiratory and expiratory wheezing. audible sounds on the right, however, mainly in the apical segment with some rhonchi and almost a delayed air entry. No convincing rubs. CARDIAC: Regular. There are pericardial tubes in place. No obvious rub. Peripheral pulses palpable. No edema. ABDOMEN: Abdomen shows his gastrostomy tube site to be clean and dry. Abdomen has bowel sounds, although they are diminished. Generally soft. No rebound. EXTREMITIES: Without cyanosis or clubbing. NEUROLOGIC: He is awake. Easily arousable and does move all extremities. MOST PRESSING PROBLEMS REQUIRING MY PRESENCE AT THE BEDSIDE: 1. Respiratory failure, multifactorial secondary to advanced non-small cell lung cancer with very extensive intrathoracic and mediastinal mets. 2. Status post pericardial window. 3. Diminished nutritional status. 4. Pulmonary abscess versus necrotic tumor. PLAN: At this point, we attempted to change him to a more standard mode of ventilation for weaning, but he is intolerant of that at this point even with high pressure support settings. In view of the above, we will work first on trying to wean his pressures. He still remains with an elevated lactate, and I believe this is more consistent with his diffuse inflammatory process from both his tumor burden, necrosis, and likely abscesses. He remains on broad spectrum antimicrobials, and I am in full agreement with that. Currently he remains on vancomycin and Zosyn. I believe that is reasonable coverage. At this point, we will proceed as outlined above. I know multiple conversations have been had with the patient and his concerning his very very poor prognosis, but at this point, they still desire full code. We are waiting formal word from Dr. Armijo from oncology as the refuses to make any further decisions regarding his code status until she hears from him. We will proceed as outlined above. Prognosis is poor. There is a very high likelihood he will not survive this hospitalization. I left the bedside at 0904 hours. Thirty-nine minutes of critical care delivered at the bedside not including procedures. DORITA
--- NOTE | 2021-02-09 10:44 | ECGEPIP ---
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 Order Number: [id number] Reading MD: London Jasso Measurements Intervals [place] Rate: 107 P: 72 GA: 120 QRS: 69 QRSD: 86 T: 41 QT: 334 QTc: 445 Interpretive Statements Sinus tachycardia Voltage criteria for LVH Small inferoapical Q waves with repolarization abnormality; consider prior i infarction. Slower rate but otherwise unchanged from 02/07/21 Electronically Signed on 02-09-2021 10:44:14 EDT by London Jasso
[2021-02-09] MEDS: NOREPINEPHRINE BITARTRATE 8 MG in D5W 492 ML IV SCH ×2 (11:00→22:53)
--- NOTE | 2021-02-09 11:09 | RADENCPD ---
Date/Time of Encounter Date of Encounter: Feb 09, 2021 Time of Encounter: 11:06 Encounter I note that Beltran has been transferred to the ICU and intubated. He remains septic and on a propofol drip. His prognosis is poor and this may be a terminal admission. I will withhold the planned radiation to his mediastinal mass pending clinical improvement. His expressed to me that she would like a final medical oncology opinion regarding systemic cancer treatment. I am happy to be a constitution party to any further [facility] discussions if requested. His prognosis is poor. LAWRENCE BAH MD Feb 09, 2021 11:09
[2021-02-09] MEDS: MOM 30ML SUSPENSION UDC PO SCH (11:37)
--- NOTE | 2021-02-09 12:19 | ECHO ---
DATE OF PROCEDURE: 02/08/2021 Age: 50 Gender: Male Height: 69 inches Weight: 183 pounds Body Surface Area: 1.99 m2 PATIENT LOCATION: Inpatient PCU Room 3219. REFERRING PHYSICIAN: Tarah Burnette MD. INDICATION: Malignant pericardial effusion. MEASUREMENTS: 2D Measurements: RV 2.6 cm LV 4.2 cm Septum 1.0 cm Posterior wall 1.0 cm Aortic Root 3.1 cm LA 3.3 cm LVEF 75% Doppler Measurements: AV 1.26 m/s LVOT 1.12 m/s LVOT diameter 1.8 cm MV Superimposed early and late diastolic filling patterns PV 0.9 m/s Pulmonary artery acceleration time 82 msec RVSP 58 mmHg IVC 2.4 cm COMMENTS: Sinus tachycardia without intraventricular conduction disturbance. M-mode and 2-dimensional echocardiography was performed with pulse and continuous wave Doppler. Normal left ventricular size and wall thickness with hyperkinetic wall motion. Normal left atrial size. Unable to define LV diastolic function in light of superimposed early and late diastolic filling patterns with his tachycardia. Right heart chambers were somewhat compressed by the pericardial fluid, but wall motion appeared to be normal with at least moderately severe pulmonary hypertension. Prominently dilated IVC with absent respiratory collapse in keeping with an elevated central venous pressure. Normal aortic dimensions. Normal appearing aortic valve. Normal appearing mitral valvular apparatus with leaflet excursion and no posterior systolic buckling. No apparent intracardiac mass. Large pericardial effusion with the heart swinging within the fluid. As mentioned, there was some compression of the right heart chambers and obvious respiratory dependent variation in pulse Doppler signals in keeping with cardiac tamponade. The fluid measured 1.8 cm posteriorly, 0.9 cm laterally, and 2.0 cm anterior to the right ventricle. A preliminary report of this study was relayed directly to Dr. Burnette at 5:30 p.m. I understand this patient has diffuse metastatic cancer, and invasive intervention regarding his pericardial effusion may have only very brief positive effects. It may be prudent to pursue comfort care measures. DORITA
[2021-02-09] MEDS: KCL 20MEQ IN D5/NS 1000ML 1,000 ML IV SCH (12:33)
--- NOTE | 2021-02-09 12:33 | IPN ---
PROGRESS NOTE DATE: 02/09/2021 This is the first postoperative day for Mr. Suresh, who remains intubated after an open-tube pericardiostomy. He is sedated, and he is breathing comfortably on the ventilator. His vital signs show a maximum temperature of 100.0 with a heart rate that ranges between 86-117, now in a sinus rhythm, respiratory rate of 15-20 without the use of accessory muscles, who is ventilated on an FiO2 of 30% on a ventilator mode of pressure-regulated volume control (PRVC), who is not over-breathing the ventilator that is set at 16 with a tidal volume of 400 and a positive end-expiratory pressure (PEEP) of 5. On that, he is saturating 99%. His blood pressure is ranging between 118/72 to 157/95. He remains on Levophed. His intake and output for the past 24 hours have been recorded as only 548 in and 755 out, for a negativity of 200 mL. He has put 80 mL out of the pericardial tube since surgery. Weight today is 89.4 kg compared to 82.1 kg yesterday. PHYSICAL EXAMINATION: His lung show markedly rhonchus sounds on the ventilator on both sides with decreased breath sounds on the right side. Cardiac exam shows squeaks and scratches consistent with his pericardial tube. S1 and S2 are normal. I cannot feel his point of maximal impulse (PMI). Abdomen is soft, nontender. Bowel sounds are hypoactive but present. I could not assess costovertebral angle (CVA) tenderness. Extremities show no pretibial edema, no calf tenderness, no differential swelling of the upper extremities. Skin is warm, dry, and perfused without cyanosis or mottling, including that of the nailbeds and knees. Neck is supple. There is no jugular venous distention. No subcutaneous emphysema. Trachea is midline. Mouth shows him to be intubated but pink and moist. Neurologic shows gross motor intact. Psychiatric shows the patient to be sedated. His white count today is 11.5 with a hemoglobin and hematocrit of 8.5 and 28.9 with a platelet count of 281. Differential shows 69% neutrophils, 13% bands, 9% lymphocytes. He has 1% metamyelocytes. There are no toxic granulations. Electrolytes are essentially normal with a marginally elevated total CO2 of 35. Calcium is 10.8 with a corresponding albumin of 2.3, consistent with his hypercalcemia from his metastatic disease. Glucose is 272. His chest x-ray this morning done portably shows his lung fully expanded to the chest wall with his large mass manifested by a dense opacity in the right lower hemithorax. Costophrenic angles are sharp. He looks to have cephalization of vessels with fluffy alveolar infiltrates. IMPRESSION: 1. Pericardial tamponade, relieved with an open tube pericardiostomy. 2. 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 3. Complete replacement of the right lower lobe with the malignant mass. 4. Acute respiratory failure, now ventilated, hopefully to be relieved after relieving the tamponade. 5. Necrosis and/or lung abscess of right lower lobe. PLAN AND DISCUSSION: Dr. Gary of pulmonology is now running the ventilator. I think that he needs some diuresis, and I will start him on Lasix intravenous (IV).
--- NOTE | 2021-02-09 13:27 | IPNPDOC ---
Date Seen The patient was seen on 02/09/21. Progress Note SUBJECTIVE: POD 1 open tube pericardiostomy after attempt with percutaneous tube pericardiostomy for cardiac tamponade, see echo below. Currently intubated, following some commands on exam. Decreased pressor and propofol. Failed weaning trial this AM. Remains full code. OBJECTIVE: PHYSICAL EXAMINATION: VENT SETTINGS: PRVC mode, FiO2 35%, PEEP 5, RR 15, TV 400 with VS VS: 102/69 on 1 mcg levophed, HR 109 sinus tach, 98% on vent settings above, RR 15, afebrile CONSTITUTIONAL: Intubated, resting in bed, following some commadns EYES: PERRLA, EOM intact HENT, MOUTH: Normocephalic, atraumatic, moist mucous membranes, endotracheal tube secured in place NECK: SUPPLE, no JVD, no lymphadenopathy, no carotid bruit CV: sinus tachycardia, S1S2 normal, no murmurs/rubs/gallops CHEST: left subclavian central line in place, multiple incisions covered in bandages RESPIRATORY: Rhonchi b/l in upper and lower lung carranza, no rales/wheezes GI: chest tube in RUQ into chest with -20 suction. PEG tube , area around tube appears clean, well healing. Nontender to palpation abdomen, diffuse, BS positive in 4 quadrants, no rebound or guarding, no organomegaly : pardo catheter MUSCULOSKELETAL: left radial line in place. Normal ROM. No cyanosis, clubbing, swelling, joint deformity, extremity edema INTEGUMENTARY: Intact, no rashes, no lesions, no erythema NEUROLOGIC: following some commands, no focal deficits LABORATORY DATA: Please see below MICRO: F/u all pleural studies/cx Sputum GS: QUALITY GOOD, MODERATE WBCS, MANY GRAM POSITIVE COCCI, FEW GRAM NEGATIVE RODS, MANY GRAM POSITIVE RODS Sputum Cx: pending BCx NG to date IMAGING: CXR 02/09/21: There is pleural thickening along the right lateral chest wall and a large opacity occupying the inferior half of the right lung. This is unchanged from the comparison studies. There is a small focal patchy density inferiorly in the left lung, unchanged. There is a left subclavian central venous catheter with its tip in the superior vena cava in satisfactory position, unchanged. There is a right IJ Fiirms-A-Tbrj catheter with the tip in the right atrium in satisfactory position, unchanged. Echocardiogram 02/08/21: EF 75% Sinus tachycardia without intraventricular conduction disturbance. M-mode and 2-dimensional echocardiography was performed with pulse and continuous wave Doppler. Normal left ventricular size and wall thickness with hyperkinetic wall motion. Normal left atrial size. Unable to define LV diastolic function in light of superimposed early and late diastolic filling patterns with his tachycardia. Right heart chambers were somewhat compressed by the pericardial fluid, but wallmotion appeared to be normal with at least moderately severe pulmonary hypertension. Prominently dilated IVC with absent respiratory collapse in keeping with an elevated central venous pressure. Normal aortic dimensions. Normal appearing aortic valve. Normal appearing mitral valvular apparatus with leaflet excursion and no posterior systolic buckling. No apparent intracardiac mass. Large pericardial effusion with the heart swinging within the fluid. As mentioned, there was some compression of the right heart chambers and obvious respiratory dependent variation in pulse Doppler signals in keeping with cardiac tamponade. The fluid measured 1.8 cm posteriorly, 0.9 cm laterally, and 2.0 cm anterior to the right ventricle. CTA chest: 1. Interval development of a large pericardial effusion since December but similar to January. 2. Development of a 15 cm mass in the subcarinal location extending to the right and left hilar region and inferiorly causing obstruction of the esophagus and impressing on the left ventricle and pulmonary veins 15 by 5.5 cm. 3. Probable abscess measuring 3 cm below the level of the obstructed esophagus and communicating with a 6 cm abscess or necrosis at the right lower lung with an air-fluid level. This is also seen in January. 4. Extensive malignant infiltration along the right parahilar region and right pleural surface. 5. No evidence of pulmonary embolus. CT abd/pelvis with contrast: 1. Very large mass lesion subcarinal location and right thorax contiguous with the right diaphragm and liver. 2. Obstructed esophagus with gastrostomy tube in the stomach. CXR: Stable pleural and parenchymal opacities on the right. 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 iMllan) admitted under inpatient status for SOB and recent hypoxic respiratory failure 2/2 to HCAP, sepsis r/o worsened pulmonary abscess, abdominal pain r/o acute intrabdominal pathology with recent feeding tube placement. PLAN: SOB and acute hypoxic respiratory failure likely multifactorial and 2/2 to Stage IV lung CA, HCAP, sepsis and pericardial tamponade, on ventilator -Currently intubated and on ventilator, see above for VS and vent settings -Propofol, versed PRN -ABG: pH 7.407/ pCO2 54 / pHCO3 33.5 / pO2 99% -New imaging above -C/w treatment plan below for individual issues Pericardial tamponade -Echo above -POD 1 open tube pericardiostomy after attempt with percutaneous tube pericardiostomy -Improved work of breathing, HR -Tube to bedside cannister, -20 suction -Dr. Duong, CT surgery, following closely -Will d/w teams as to if/when repeat echo will be ordered Acute hypoxic respiratory failure 2/2 to pericardial tamponade, HCAP, pulmonary abscess vs. necrotic lung mass, sepsis -VS and Vent settings above -Failed weaning trial this AM -Imaging above -F/u sputum culture, pericardial fluid tests, cultures -C/w vancomycin, zosyn, IVFs at 75 cc/hr, levalbuterol ATC and PRN, zofran, pain control -CT surgery, pulmonary consulted to follow Hypotension s/p pericardiostomy -Remains on low dose levophed, weaned down this AM -IVS at 75 cc/hr, levophed -C/w treatment above, arterial line in place to closely monitor Anemia -H/H 8.5/28 -F/u occult blood -CBC daily Dysphagia 2/2 esophageal compression by extrinsic mass, supposed to start radiation for extrinsic mass (Dx 01/19- hospitalization) -Was to start palliative RT to esophagus obstructing mass today -CT abd/pelvis with contrast above, no CI to start tube feedings -ST has assessed this admission and had cleared for thin liquids on reassessment today -Jevity 1.5 continuous tube feedings starting at 40 cc/hr, advance as tolerated to 60 cc/hr. Stage IV squamous cell carcinoma of the lung s/p radiation/chemo -Follows with Dr. Armijo, awaiting gene sequencing, he is to talk to -Dr. Byers consulted for palliative radiation - this is on hold for now DM type II -Started on continuous tube feedings Jevity- watch BS closely -AC/HS ISS, FS Atrial fibrillation -currently NSR -Lovenox px dosing HLD -Holding home statin Depression / Anxiety / Panic attacks -Holding home meds for now GERD -PPI IV DVT px -Lovenox DISPOSITION: Admitted as acute inpatient to ICU. Med/onc, rad/onc, CT surg, CC consulted. F/u recommendations. Prognosis is guarded. TOTAL AMOUNT OF CRITICAL CARE TIME SPENT CARING FOR PATIENT (nonprocedural): 70 MINS VS, I&O, 24H, Fishbone Vital Signs/I&O Vital Signs Date Time Temp Pulse Resp B/P (MAP) Pulse Ox O2 Delivery O2 Flow Rate FiO2 02/09/21 10:58 85 16 02/09/21 10:30 99/63 (75) 98 Ventilator 35 117/70 02/09/21 08:00 97.0 02/08/21 19:42 6.0 I&O- Last 24 Hours up to 6 AM 02/09/21 06:00 Intake Total 1550.0 ml Output Total 810 ml Balance 740.0 ml Laboratory Data 24H LABS Laboratory Tests 2 02/08/21 12:54: Lactic Acid Followup at 4 Hours 2.4*H 02/08/21 17:42: Bedside Glucose (Misc Panel) 211H 02/08/21 20:55: Body Fluid WBC (Auto) 70H, Body Fluid RBC (Auto) < 2, Body Fluid Mononuclear Cells % Auto 57.1H, Fluid Polymorphonuclear Cell % Auto 42.9H, Body Fluid Glucose Source PERICARDIAL, Body Fluid Glucose 156, Body Fluid Protein Source PERICARDIAL, Body Fluid Total Protein 5.5, Body Fluid LDH Source PERICARDIAL, Body Fluid Lactate Dehydrogenase 2224, Pericardial Fluid Source PERICARDIAL, Pericardial Fluid Color YELLOW, Pericardial Fluid Appearance HAZY 02/08/21 21:49: Neutrophils (%) (Auto) , Nucleated Red Blood Cells % (auto) 0.0, Neutrophils 73H, Band Neutrophils 13H, Lymphocytes (Manual) 7L, Monocytes (Manual) 5, Eosinophils (Manual) 1, Metamyelocytes 1H, Anisocytosis 2+, Platelet Estimate NORMAL, Anion Gap 3L, Glomerular Filtration Rate > 60.0, Calcium Level 10.6H, Vancomycin Level Trough 10.6 02/08/21 22:22: Bedside Glucose (Misc Panel) 250H 02/08/21 22:50: Blood Gas Bicarbonate Standard 27.5H, Arterial Blood pH 7.355, Arterial Blood Partial Pressure CO2 54.4H, Arterial Blood Partial Pressure O2 145.8H, Arterial Blood Total CO2 31.4H, Arterial Blood HCO3 29.7H, Arterial Blood Base Excess 3.4H, Arterial Blood Oxygen Saturation 99.3H 02/09/21 04:10: Neutrophils (%) (Auto) , Nucleated Red Blood Cells % (auto) 0.0, Neutrophils 69H, Band Neutrophils 13H, Lymphocytes (Manual) 9L, Monocytes (Manual) 8H, Metamyelocytes 1H, Anisocytosis 2+, Platelet Estimate NORMAL, Anion Gap 3L, Glomerular Filtration Rate > 60.0, Calcium Level 10.8H, Total Bilirubin 0.4, Aspartate Amino Transf (AST/SGOT) 24, Alanine Aminotransferase (ALT/SGPT) 34, Alkaline Phosphatase 115, Total Protein 6.3L, Albumin 2.3L, Albumin/Globulin Ratio 0.6 02/09/21 05:48: Blood Gas Bicarbonate Standard 31.5H, Arterial Blood pH 7.407, Arterial Blood Partial Pressure CO2 54.4H, Arterial Blood Partial Pressure O2 164.0H, Arterial Blood Total CO2 35.1H, Arterial Blood HCO3 33.5H, Arterial Blood Base Excess 7.7H, Arterial Blood Oxygen Saturation 99.4H 02/09/21 07:39: Lactic Acid Level 3.3*H 02/09/21 08:32: Bedside Glucose (Misc Panel) 212H 02/09/21 12:15: Bedside Glucose (Misc Panel) 146H CBC/BMP Laboratory Tests 02/08/21 21:49 02/09/21 04:10 Microbiology Microbiology 02/08/21 Acid Fast Stain, Received Pending 02/08/21 Mycobacterial Culture, Received Pending 02/08/21 Fungal Smear, Received Pending 02/08/21 Fungal Culture, Received Pending 02/08/21 Gram Stain - Final, Resulted 02/08/21 Body Fluid Culture, Resulted Pending 02/08/21 Anaerobic Culture, Resulted Pending 02/07/21 Gram Stain - Final, Resulted 02/07/21 Sputum Culture, Resulted Pending 02/07/21 Blood Culture - Preliminary, Resulted No growth after 24 hours . All specim... 02/07/21 Blood Culture - Preliminary, Resulted No growth after 24 hours . All specim... 02/07/21 Respiratory Virus Panel (PCR) (RAMIN) - Final, Complete Current Medications Current Medications Medications (Trade) Dose Ordered Sig/[place] Route PRN Reason Start Time Stop Time Status Last Admin Dose Admin Acetaminophen/ Hydrocodone Bitart ([place], Anexsia 5/325) 1 tab Q3H PRN PO MILD PAIN (PS 1-4) 02/08/21 21:25 Apixaban (Eliquis) 2.5 mg BID PO 02/07/21 21:00 02/07/21 19:11 DC Bisacodyl (Dulcolax Suppository) 10 mg Q4HP PRN ND CONSTIPATION 02/08/21 21:25 Cefepime HCl 1 gm/ Dextrose 50 ml @ 100 mls/hr Q12H IV 02/07/21 17:55 02/07/21 18:51 DC Chlorhexidine Gluconate (Peridex Oral Rinse) 15 ml BID MT 02/09/21 09:00 02/09/21 08:54 Dextrose (Dextrose 50%) 25 ml ASDIRECTED PRN IV SEE LABEL COMMENTS 02/07/21 18:00 Docusate Sodium (Colace) 100 mg BID PO 02/09/21 09:00 Enoxaparin Sodium (Lovenox) 40 mg DAILY SC 02/08/21 09:00 02/09/21 08:55 Fentanyl Citrate (Sublimaze) 25 mcg Q5MP PRN IV PAIN LEVEL 5-10 02/08/21 22:10 02/08/21 23:09 DC Fentanyl Citrate (Sublimaze) 25 mcg Q5MP PRN IV PAIN LEVEL 5-10 02/08/21 22:20 02/08/21 23:30 Cancel Glucagon (Glucagon) 1 mg ASDIRECTED PRN SC SEE LABEL COMMENTS 02/07/21 18:00 Glucose (Glucose) 16 GM ASDIRECTED PRN PO SEE LABEL COMMENTS 02/07/21 18:00 Home Med (Med Rec Complete!) ASDIRECTED XX 02/07/21 18:05 02/07/21 18:06 DC Insulin Human Lispro (HumaLOG INSULIN) SEE PROTOCOL TABLE AC SC 02/08/21 17:30 02/09/21 12:34 Insulin Human Lispro (HumaLOG INSULIN) SEE PROTOCOL TABLE Q6H CA 02/07/21 18:00 02/08/21 13:14 DC 02/08/21 12:00 Insulin Human Lispro (HumaLOG INSULIN) SEE PROTOCOL TABLE QHS CA 02/08/21 21:00 Ketorolac Tromethamine (ToRADol) 30 mg Q6H IV 02/08/21 23:00 02/13/21 22:59 02/09/21 12:33 Lactated Ringer's 1,000 ml @ 80 mls/hr [id number] IV 02/08/21 22:10 02/08/21 23:09 DC Lactated Ringer's 1,000 ml @ 80 mls/hr [id number] IV 02/08/21 22:20 02/08/21 23:30 Cancel Levalbuterol HCl (Xopenex Neb) 1.25 mg Q2HP PRN NEB SOB/WHEEZING 02/07/21 18:50 02/08/21 17:32 Levalbuterol HCl (Xopenex Neb) 1.25 mg QID NEB 02/07/21 21:00 02/09/21 10:58 Lorazepam (Ativan) 1 mg STAT STAT IV 02/08/21 15:17 02/08/21 15:19 DC 02/08/21 15:40 Magnesium Hydroxide (Milk Of Magnesia) 30 ml DAILY PO 02/09/21 09:00 Metoprolol Succinate (TopROL XL) 50 mg BID PO 02/07/21 21:00 02/07/21 19:18 DC Midazolam HCl (Versed) 2 mg Q15MP PRN IV ANXIETY 02/08/21 21:40 02/09/21 06:30 Morphine Sulfate (Morphine Sulfate Inj) 1 mg Q6H PRN IV MODERATE PAIN (PS 5-7) 02/07/21 19:05 02/08/21 14:48 Norepinephrine Bitartrate 8 mg/ Dextrose 500 ml @ 26.2 mls/hr Q19H6M IV 02/08/21 21:50 02/08/21 22:52 Ondansetron HCl (ZOFRAN INJection) 4 mg Q4HP PRN IV NAUSEA OR VOMITING 02/07/21 19:00 02/07/21 19:23 Ondansetron HCl (ZOFRAN INJection) 4 mg Q4HP PRN IV NAUSEA OR VOMITING 02/08/21 22:10 02/08/21 23:09 DC Ondansetron HCl (ZOFRAN INJection) 4 mg Q4HP PRN IV NAUSEA OR VOMITING 02/08/21 22:20 02/08/21 23:30 Cancel Oxycodone/ Acetaminophen (Percocet 5mg/ 325mg Tablet) 1 tab Q4H PRN PO MODERATE PAIN (PS 5-7) 02/08/21 21:25 Oxycodone/ Acetaminophen (Percocet 5mg/ 325mg Tablet) 2 tab Q4H PRN PO SEVERE PAIN (PS 8-10) 02/08/21 21:25 Pantoprazole Sodium (Protonix) 40 mg Q24H IV 02/07/21 20:00 02/08/21 22:09 Pantoprazole Sodium (Protonix) 40 mg QHS PO 02/07/21 21:00 02/07/21 19:18 DC Piperacillin Sod/ Tazobactam Sod 3.375 gm/Dextrose 50 ml @ 50 mls/hr Q6H IV 02/08/21 01:00 02/09/21 12:33 Potassium Chloride/Dextrose/ Sod Cl 1,000 ml @ 75 mls/hr [id number] IV 02/08/21 21:25 02/09/21 12:33 Propofol (Diprivan) DRIP IV 02/08/21 22:25 02/08/21 23:25 DC Propofol 1000 mg/ IV Miscellaneous Supplies 100 ml @ 4.968 mls/ hr Q12H IV 02/08/21 21:40 02/09/21 12:34 Sertraline HCl (Zoloft) 100 mg DAILY PO 02/08/21 09:00 02/07/21 19:18 DC Simvastatin (Zocor) 10 mg QHS PO 02/07/21 21:00 02/07/21 19:18 DC Sodium Chloride 1,000 ml @ 100 mls/hr Q10H IV 02/07/21 18:05 02/08/21 21:27 DC 02/08/21 14:50 Vancomycin HCl 1000 mg/IV Miscellaneous Supplies 1 each/ Sodium Chloride 270 ml @ 270 mls/hr Q8H IV 02/08/21 04:00 02/08/21 13:47 DC 02/08/21 03:18 Vancomycin HCl 1000 mg/IV Miscellaneous Supplies 1 each/ Sodium Chloride 270 ml @ 270 mls/hr Q8H IV 02/08/21 14:00 02/09/21 05:32 Vitamin D (Vitamin D) 2,000 units DAILY PO 02/08/21 09:00 02/07/21 19:18 DC Allergies Coded Allergies: No Known Allergies (Unverified , 08/14/19) Tarah Burnette MD Feb 09, 2021 13:27
--- NOTE | 2021-02-09 14:08 | ECHO ---
DATE OF PROCEDURE: 02/08/2021 Age: 50 Gender: Male Height: 81 inches Weight: 197.1 pounds Body Surface Area: 2.25 m2 REFERRING PHYSICIAN: Dr. Mathew Duong. INDICATION: Cardiac tamponade. COMMENTS: Underlying sinus tachycardia without intraventricular conduction disturbance. Two-dimensional imaging was performed at the patient's bedside in the Intensive Care Unit to assist with percutaneous pericardiocentesis and fluid drainage. Imaging was performed from the subcostal, apical, and parasternal projections. There was in excess of 2 cm of anterior fluid collection, 1 cm posteriorly, and 1.5 cm laterally. There was obvious pendular swinging of the heart within the pericardial fluid and collapse of the right ventricular free wall and right atrial free rae. Unfortunately in light of his body habitus, percutaneous fluid drainage was not feasible, and the patient was taken to the operating room. DORITA
[2021-02-09] MEDS: MORPHINE 2 MG/ML 1ML VIAL (J2270) IV PRN (14:31)
--- NOTE | 2021-02-09 16:12 | REPVR ---
PROCEDURE INFORMATION: Exam: XR Chest Exam date and time: 02/08/2021 9:21 PM Age: 50 years old Clinical indication: Other: Effusion; Additional info: Pericaridal effusion, lung cancer TECHNIQUE: Imaging protocol: XR of the chest. Views: 1 view. COMPARISON: NM PORTABLE CHEST X-RAY 02/07/2021 3:14 PM FINDINGS: Tubes, catheters and devices: An endotracheal tube is present with its tip in the midtrachea. A right-sided central line is in place with its tip in the superior vena cava and this is a Port-A-Cath. A left subclavian line is in place with its tip in the superior vena cava. Lungs: There is infiltrate at the left lung base that has further increased since yesterday probably a combination of pneumonic infiltrate and pulmonary edema. Pleural spaces: There is a moderate right pleural effusion unchanged since yesterday. There is prominence of the interstitial markings consistent with mild congestive failure. Heart/Mediastinum: The heart is normal in size. Right thorax: There is a very large mass in the right parahilar region and right lung base consistent with extensive malignant neoplasm. Bones/joints: Unremarkable. IMPRESSION: 1. Very large solid mass right parahilar region and right lung base consistent with malignant neoplasm. Moderate right pleural effusion. 2. Prominence of the interstitial markings probably the result of mild congestive failure. 3. New infiltrate at the left lung base increased from yesterday probably atelectasis, edema and pneumonia. Electronically signed by: Aris Butler On 02/09/2021 16:12:27 PM
[2021-02-09] MEDS: PANTOPRAZOLE 40MG VIAL (C9113 PER 1) IV SCH (20:15)
[2021-02-10] VITALS (48 sets, daily range): BP systolic 95–148; BP diastolic 51–82
[2021-02-10] MEDS: PIPERACILLIN/TAZOBACTAM SOD 3.375 GM in D5W MINI-BAG PLUS 50 ML IV SCH ×4 (00:50→18:07)
[2021-02-10] MEDS: MIDAZOLAM INJ 2MG/2ML VIAL (J2250 PER 1MG) IV PRN ×8 (04:00→20:15)
[2021-02-10] MEDS: KETOROLAC 30 MG/ML 1ML VIAL IV SCH ×4 (04:52→22:29)
[2021-02-10] MEDS: VANCOMYCIN HCL 1,000 MG, VIAL MATE ADAPTER 1 EACH in NS 250 ML IV SCH (05:13)
[2021-02-10] MEDS: propofoL 1,000 MG in IV 1 EA IV SCH ×4 (05:34→22:29)
[2021-02-10 06:01] LABS: ABG BASE EXCESS 5.7 (-2.0-2.0); ABG HCO3 31.1 MEQ/L (22.0-26.0); ABG O2 SATURATION 97.9 % (95.0-99.0); ABG PARTIAL PRESSURE CO2 49.7 mmHg (35.0-45.0); ABG PARTIAL PRESSURE O2 106.7 mmHg (75.0-100.0); ABG STANDARD HCO3 29.6 MEQ/L (22.0-26.0); ABG TOTAL CO2 32.6 MEQ/L (22.0-29.0); ABG pH (ARTERIAL) 7.414 UNITS (7.350-7.450)
[2021-02-10 06:10] LABS: HEMATOCRIT 26.3 % (42.0-52.0); HEMOGLOBIN 7.9 g/dl (13.5-17.5); MEAN CORPUSCULAR VOLUME 89.8 fl (80.0-96.0); PLATELET COUNT, AUTOMATED 274 10^3/uL (150-450); RED BLOOD COUNT 2.93 10^6/uL (4.30-6.10); WHITE BLOOD COUNT 13.1 10^3/uL (4.0-10.0)
[2021-02-10 06:24] LABS: BLOOD UREA NITROGEN 12 MG/DL (7-18); CALCIUM LEVEL 11.4 MG/DL (8.5-10.1); CARBON DIOXIDE LEVEL 34 MEQ/L (21-32); CHLORIDE LEVEL 105 MEQ/L (98-107); CREATININE FOR GFR 0.74 MG/DL (0.70-1.30); GLOMERULAR FILTRATION RATE > 60.0 (>56); GLUCOSE, FASTING 208 MG/DL (70-100); POTASSIUM SERUM 3.3 MEQ/L (3.5-5.1); SODIUM LEVEL 144 MEQ/L (136-145)
[2021-02-10 07:13] LABS: ANISOCYTOSIS 2+; EOSINOPHILS 12 % (0-3); LYMPHOCYTES 14 % (16-44); MONOCYTES 8 % (0-5); NEUTROPHILS 66 % (28-66); PLATELET ESTIMATE NORMAL (NORMAL)
--- NOTE | 2021-02-10 07:52 | REP ---
INDICATION: ETT. COMPARISON: Portable chest dated 02/09/2021. TECHNIQUE: Portable AP chest with the patient semi upright. FINDINGS: The pleural thickening along the right lateral chest wall and large opacity inferiorly in the right lung are unchanged. The small patchy density inferiorly in the left lung is unchanged. The right IJ [id number] and left subclavian central venous catheter are in satisfactory positions, unchanged. The ETT tube tip is at the level of the aortic arch, above the dilip, in satisfactory position, unchanged. IMPRESSION: There is no interval change. <Electronically signed by Nasir Zambrano > 02/10/21 0750
[2021-02-10] MEDS: LEVALBUTEROL 1.25 MG/0.5 ML CONCENTRATE NEB NEB SCH ×4 (07:57→19:37)
[2021-02-10] MEDS ORDERED: KCL 20MEQ IN 100ML SWI (KRUN) 20 MEQ in IV 1 EA IV SCH ×2 (08:00)
[2021-02-10] MEDS ORDERED: NS 1,000 ML IV ONE (08:10)
[2021-02-10] MEDS: DOCUSATE SODIUM 100MG CAPSULE PO SCH ×2 (08:31→20:15)
[2021-02-10] MEDS: MOM 30ML SUSPENSION UDC PO SCH (09:10)
[2021-02-10] MEDS: CHLORHEXIDINE GLUCONATE 0.12 % 15ML UDC (PERIDEX ORAL RINSE) MT SCH ×2 (09:10→20:15)
[2021-02-10] MEDS: ENOXAPARIN 40MG/0.4ML SYRINGE (J1650 PER 10MG) SC SCH (09:11)
[2021-02-10] MEDS: KCL 20MEQ IN 100ML SWI (KRUN) 20 MEQ in IV 1 EA IV SCH ×4 (09:11→11:27)
[2021-02-10] MEDS: HumaLOG INSULIN (NovoLOG) PER UNIT SC SCH ×4 (09:11→20:14)
[2021-02-10] MEDS: methylPREDNISolone 125MG 2ML VIAL IV SCH ×2 (09:12→20:14)
[2021-02-10] MEDS: KCL 20MEQ IN D5/NS 1000ML 1,000 ML IV SCH ×2 (09:14→13:25)
--- NOTE | 2021-02-10 09:28 | CCN ---
CRITICAL CARE NOTE DATE: 02/10/2021 CRITICAL CARE TIME: 1 hour and 13 minutes, this excludes all procedures. SUBJECTIVE: Mr. Suresh is an unfortunate 50-year-old male who remains on mechanical ventilation. He awakens on sedation vacation. This morning when fully alert, able to participate in a spontaneous breathing trial, he was off vasopressor therapy with a systolic blood pressure of 123. On spontaneous breathing trial, he had very rapid shallow breathing. His respiratory shallow breathing index was greater than 300 on a pressure support of 5/5. When I asked if he wants to remain on mechanical ventilation he shook his head no. When I asked him if it meant that he may not live he did not answer. He remains full code by his . Unfortunately, there continues to be a continued right opacification of the chest on chest x-ray. He is hypercalcemic, protein malnourishment but is being fed through tube feeds which he has tolerated. He is widely hyperglycemic and more anemic this morning. Antibiotic Zosyn day #3, Vancomycin day #3. Blood cultures show no growth. Sputum culture is pending but likely is oropharyngeal contaminant. Antibiotics are being continued due to the severity of his presentation and the possibility of an abscess in the midst of his extensive malignancy. PHYSICAL EXAMINATION: VITAL SIGNS: Temperature is 98.5, pulse is 108, respiratory rate is 20, blood pressure is 110/71 with a mean arterial pressure of 84, oxygen saturation is 99% on 0.35 FIO2. INPUT AND OUTPUT: In 3302, out 1520. GENERAL: Patient is awake on mechanical ventilation, is able to shake his head yes or no to commands. HEENT: Sclera clear. Anicteric. Minimal proptosis. Oropharynx without erythema or exudate. There are bloody secretions in the endotracheal tube and ventilator tubing. NECK: Supple. No tracheal deviation. Some enlargement from lymphadenopathy. No supraclavicular or axillary adenopathy. PULMONARY: Decreased breath sounds on the right. I am not able to hear any breath sounds on the right side. The left side has better breath sounds. No wheeze. There is minimal rhonchi. ABDOMEN: Soft, nontender, nondistended. No discernible hepatosplenomegaly. No masses or hernia. EXTREMITIES: Upper extremities are significant swollen, less swollen in the lower extremities. SKIN: Warm. No rashes, jaundice or bruising. There is no livido reticularis or cyanosis. MUSCULOSKELETAL: Appears to have fairly muscle tone. NEUROLOGIC: No evidence of tremor. Patient is able to move all extremities. LABORATORY DATA: Sodium is 144, potassium is 3.3, chloride 105, bicarbonate 34 with a BUN of 12, creatinine of 0.74, arterial blood gas shows a pH of 7.41, pCO2 of 51, PaO2 of 107. Albumin is 2.3. Calcium is 11.4. Glucose this morning was 208. Hemoglobin was 7.9 with a hematocrit of 26.3 and a platelet count of 274,000. White blood cell count is 13.1. Chest x-ray as mentioned above and shows endotracheal tube in good position, approximately 4 cm above the dilip. There is opacification of 3/4 of the right lung field. There is an Infusaport on the right side. There is a left subclavian triple lumen catheter with the tip of the catheter in the SCC. Cardiac silhouette does not appear enlarged. I can see the majority of the left lung. There is minimal infiltrative abnormalities in the base of the left lung without effusion and there is a slightly widened mediastinum. IMPRESSION: Patient requires critical care for respiratory failure and hypercalcemia. 1. Respiratory failure. Patient unable to pass spontaneous breathing trial. I am not sure he will ever be able to. He has extensive tumor burden in the chest which may prevent him from being able to ventilate on his own. I will continue daily spontaneous breathing trials and continue to have discussions with the in regard to his clinical status. I do not expect the patient to survive this hospitalization. 2. Hypercalcemia. I have ordered a bolus of normal saline. I have added prednisone to decrease inflammation. I believe the hypercalcemia is likely secondary to malignancy. We will recheck calcium this afternoon and if this is not improved will consider IV bisphosphonate therapy. There has been no significant arrhythmia. Patient also has low albumin. 3. Hypokalemia, replaced IV. 4. Protein malnourishment, receiving continuous tube feeds. 5. History of pericardial tamponade now status post pericardial window. Continues to drain minimal amounts of serosanguinous fluid. No evidence of infection. Pericardial fluid showed no organisms. 6. Hyperglycemia, will add Levemir low dose. 7. Anemia, will check H and H this afternoon, would transfuse for a hemoglobin less than 7. 8. Pain controlled with morphine, I have discontinued his oral narcotics as he is not using these currently. 9. Leukocytosis likely secondary to malignancy, however remains on antibiotics, Vancomycin, Zosyn, day # 3of both. This is in case there is any underlying abscesses. The tumor burden is so large that infection could easily be missed. 10.GI prophylaxis with Protonix. 11.DVT prophylaxis with Enoxaparin. Prognosis is extremely guarded. I do not expect the patient to survive this hospitalization. Continued efforts towards discussion with family will be performed. DORITA
--- NOTE | 2021-02-10 11:43 | IPN ---
PROGRESS NOTE DATE: 02/10/2021 SUBJECTIVE: Mr. Suresh remains intubated on a PRVC mode with a ventilation support rate of 15, tidal volume of 400, and a PEEP of 5, who is over-breathing the ventilator at 20 spontaneously. His pericardial tube has put out minimal and I will discontinue it. He failed his weaning trial yesterday and it looks as though he does not have the proper weaning parameters even today to be extubated. OBJECTIVE: VITAL SIGNS: Show a T-max of 98.8 with a heart rate that ranges between 97 and 121 in sinus rhythm. Respiratory rate as noted above who is 96% saturated on 35% FiO2 and whose blood pressure is ranging between 148/74 to 97/61. He is on and off norepinephrine. The last use of norepinephrine is recorded at 6 o'clock in the evening yesterday. RESPIRATORY: His lungs show coarse rhonchorous sounds throughout the ventilatory cycle on the ventilator. He has markedly decreased breath sounds on the right side. CARDIAC: Shows what is probable pericardial friction rub, but may be secondary to his tube being in place. I cannot feel his PMI. S1 and S2 are normal. ABDOMEN: Soft, nontender, and slightly distended. Bowel sounds are present, but hypoactive. EXTREMITIES: Show no pretibial edema. No calf tenderness. No differential swelling of the upper extremities. SKIN: Warm, dry, and perfused without cyanosis or mottling, including that of the nail beds and knees. NECK: Supple. There is no jugular venous distention. No subcutaneous emphysema. Trachea is midline. MOUTH: Shows the mucous membranes to be pink and moist. He is intubated. EYES: Show his pupils equal and reactive. Extraocular muscles are intact. Sclerae nonicteric. NEUROLOGIC: Shows him to be sedated, but the nurses tell me that he moves all extremities. PSYCHIATRIC: Shows him to be sedated. LABORATORY DATA: His white count today is 13.1 with a hemoglobin and hematocrit of 7.9 and 26.3 respectively down from 8.5 and 28.9 yesterday. Platelet count is 274,000 and differential shows 66% neutrophils, 14% lymphocytes, 8% monocytes. There are no longer any immature forms and no toxic granulations reported. His anemia can be explained by hemodilution with a positive intake and output of 1782 mL. His chest tube only put out 70 mL yesterday and he weighs 88.5 kg compared to 89.4 kg yesterday. His chemistries show a potassium of 3.3 with a BUN and creatinine of 12 and 0.74 and a marginally elevated total CO2 of 34. Calcium is up to 11.4. His lactic acid is 4.0. IMAGING DATA: His chest x-ray shows his left lung fully expanded. Looks to have some cephalization of vessels. The costophrenic angle is cut off. The right lung shows complete obliteration and opacification of the right lower lobe with a little bit of aeration in the upper hemithorax. IMPRESSION: 1. Pericardial tamponade relieved with open tuber pericardiostomy. 2. 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 3. Complete replacement of the right lower lobe with the malignant mass. 4. Acute respiratory failure now ventilated. 5. Necrosis and/or lung abscess of the right lower lobe. 6. Anemia probably secondary to hemodilution. PLAN AND DISCUSSION: As his pericardial tube is putting out very little, I will discontinue it today. My fear all along is that he is not going to be extubated after surgery and that fear is coming to fruition. There is supposed to be a family conference with oncology and his today. I would think it be appropriate he be offered comfort measures and extubation.
--- NOTE | 2021-02-10 12:18 | IPNPDOC ---
Date Seen The patient was seen on 02/10/21. Progress Note SUBJECTIVE: Failed weaning trial this AM. POD 2 open tube pericardiostomy after attempt with percutaneous tube pericardiostomy for cardiac tamponade, tube removed today. Currently intubated and sedated, not able to follow commands on exam for me today likely 2/2 to receiving sedation prior to me arriving. Discussed case with Dr. Armijo (patient's oncologist) who will meet with patient's HCP and this afternoon to update from their end. OBJECTIVE: PHYSICAL EXAMINATION: VENT SETTINGS: PRVC mode, FiO2 35%, PEEP 5, RR 15, TV 400 with VS VS: 128/69 on 1 mcg levophed, HR 104 sinus tach, 98% on vent settings above, RR 19, afebrile CONSTITUTIONAL: Intubated, not following commands this AMm EYES: PERRLA, EOM intact HENT, MOUTH: Normocephalic, atraumatic, moist mucous membranes, endotracheal tube secured in place NECK: SUPPLE, no JVD, no lymphadenopathy, no carotid bruit CV: sinus tachycardia, S1S2 normal, no murmurs/rubs/gallops CHEST: left subclavian central line in place, multiple incisions covered in bandages RESPIRATORY: Rhonchi b/l in upper and lower lung carranza, no rales/wheezes GI: PEG tube , area around tube appears clean, well healing. Nontender to palpation abdomen, diffuse, BS positive in 4 quadrants, no rebound or guarding, no organomegaly : pardo catheter MUSCULOSKELETAL: left radial line in place. Normal ROM. No cyanosis, clubbing, swelling, joint deformity, extremity edema INTEGUMENTARY: Intact, no rashes, no lesions, no erythema NEUROLOGIC: following some commands, no focal deficits LABORATORY DATA: Please see below MICRO: F/u all pleural studies/cx Sputum GS: QUALITY GOOD, MODERATE WBCS, MANY GRAM POSITIVE COCCI, FEW GRAM NEGATIVE RODS, MANY GRAM POSITIVE RODS Sputum Cx: pending BCx NG to date IMAGING: CXR 02/09/21: There is pleural thickening along the right lateral chest wall and a large opacity occupying the inferior half of the right lung. This is unchanged from the comparison studies. There is a small focal patchy density inferiorly in the left lung, unchanged. There is a left subclavian central venous catheter with its tip in the superior vena cava in satisfactory position, unchanged. There is a right IJ Clcrks-N-Fect catheter with the tip in the right atrium in satisfactory position, unchanged. Echocardiogram 02/08/21: EF 75% Sinus tachycardia without intraventricular conduction disturbance. M-mode and 2-dimensional echocardiography was performed with pulse and continuous wave Doppler. Normal left ventricular size and wall thickness with hyperkinetic wall motion. Normal left atrial size. Unable to define LV diastolic function in light of superimposed early and late diastolic filling patterns with his tachycardia. Right heart chambers were somewhat compressed by the pericardial fluid, but wallmotion appeared to be normal with at least moderately severe pulmonary hypertension. Prominently dilated IVC with absent respiratory collapse in keeping with an elevated central venous pressure. Normal aortic dimensions. Normal appearing aortic valve. Normal appearing mitral valvular apparatus with leaflet excursion and no posterior systolic buckling. No apparent intracardiac mass. Large pericardial effusion with the heart swinging within the fluid. As mentioned, there was some compression of the right heart chambers and obvious respiratory dependent variation in pulse Doppler signals in keeping with cardiac tamponade. The fluid measured 1.8 cm posteriorly, 0.9 cm laterally, and 2.0 cm anterior to the right ventricle. CTA chest: 1. Interval development of a large pericardial effusion since December but similar to January. 2. Development of a 15 cm mass in the subcarinal location extending to the right and left hilar region and inferiorly causing obstruction of the esophagus and impressing on the left ventricle and pulmonary veins 15 by 5.5 cm. 3. Probable abscess measuring 3 cm below the level of the obstructed esophagus and communicating with a 6 cm abscess or necrosis at the right lower lung with an air-fluid level. This is also seen in January. 4. Extensive malignant infiltration along the right parahilar region and right pleural surface. 5. No evidence of pulmonary embolus. CT abd/pelvis with contrast: 1. Very large mass lesion subcarinal location and right thorax contiguous with the right diaphragm and liver. 2. Obstructed esophagus with gastrostomy tube in the stomach. CXR: Stable pleural and parenchymal opacities on the right. 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 Millan) admitted under inpatient status for SOB and recent hypoxic respiratory failure 2/2 to HCAP, sepsis r/o worsened pulmonary abscess, abdominal pain r/o acute intrabdominal pathology with recent feeding tube placement. PLAN: Acute hypoxic respiratory failure likely multifactorial and 2/2 to Stage IV lung CA, HCAP, sepsis and pericardial tamponade -Currently intubated and on ventilator, see above for VS and vent settings -Propofol, versed PRN -ABG similar to 02/09/21 -C/w treatment plan below for individual issues Pericardial tamponade -Echo above -POD 2 open tube pericardiostomy after attempt with percutaneous tube pericardiostomy -Tube removed today -Dr. Duong, CT surgery, following closely -No plans to repeat echocardiogram Acute hypoxic respiratory failure 2/2 to HCAP, pulmonary abscess vs. necrotic lung mass, sepsis -WBC 13.1, tachycardic, LA elevated -VS and Vent settings above -Failed weaning trial this AM again -Imaging above -F/u sputum culture, pericardial fluid tests/cultures -D/c vancomycin per Dr. Le, c/w zosyn, IVFs at 75 cc/hr, levalbuterol ATC and PRN, methylprednisolone 60 mg IV BID, zofran, pain control -CT surgery, pulmonary consulted Hypotension s/p pericardiostomy -Remains on low dose levophed -IVS at 75 cc/hr, levophed -C/w treatment above, arterial line in place to closely monitor Hypercalcemia likely 2/2 to malignancy -C/w prednisone, fluids with calcium to be rechecked this afternoon. -Bisphosphonate therapy to be considered if still high Acute hypokalemia -40 mEq to be reqplaced today -F/u repeat labs Anemia -H/H 7.9 -Transfusing 1 unit PRBC today -F/u occult blood -CBC pots transfusion and daily -No s/s of bleeding Dysphagia 2/2 esophageal compression by extrinsic mass, supposed to start radiation for extrinsic mass (Dx 01/19- hospitalization) -Was to start palliative RT to esophagus obstructing mass -CT abd/pelvis with contrast above, no CI to start tube feedings -ST has assessed this admission and had cleared for thin liquids on reassessment today -Jevity 1.5 continuous tube feedings started but having difficulty with residuals -Held this AM, rechecking. -Consider starting reglan. Stage IV squamous cell carcinoma of the lung s/p radiation/chemo -Follows with Dr. Armijo, awaiting gene sequencing, he is to talk to today in office -Dr. Byers consulted for palliative radiation - this is on hold for now DM type II -On continuous tube feedings Jevity- watch BS closely -AC/HS ISS, FS Atrial fibrillation -currently NSR -Lovenox px dosing HLD -Holding home statin Depression / Anxiety / Panic attacks -Holding home meds for now GERD -PPI IV DVT px -Lovenox DISPOSITION: Admitted as acute inpatient to ICU. Med/onc, rad/onc, CT surg, CC consulted. F/u recommendations. I spoke at great length with Dr. Armijo this AM. The patient and his were very hopeful pending the results of a gene sequencing test that has been pending for some time. It was told to me by her that this is what they are hoping can change his condition. I explained to Dr. Armijo that currently with the patient failing weaning trials, on the ventilator with little hope that he will be able to come off, that it may be best to update the family that the patient would not even be eliqible for treatment for this test if he were still on ventilator. He will be meeting with her today. Patient's prognosis is poor, guarded. TOTAL AMOUNT OF CRITICAL CARE TIME SPENT CARING FOR PATIENT (nonprocedural): 70 MINS VS, I&O, 24H, Fishbone Vital Signs/I&O Vital Signs Date Time Temp Pulse Resp B/P (MAP) Pulse Ox O2 Delivery O2 Flow Rate FiO2 02/10/21 12:05 99.3 104 19 128/69 99 Ventilator 35 02/08/21 19:42 6.0 I&O- Last 24 Hours up to 6 AM 02/10/21 06:00 Intake Total 3151.5 ml Output Total 1530 ml Balance 1621.5 ml Laboratory Data 24H LABS Laboratory Tests 2 02/09/21 12:54: Lactic Acid Followup at 4 Hours 3.1*H 02/09/21 17:48: Bedside Glucose (Misc Panel) 178H 02/09/21 20:13: Bedside Glucose (Misc Panel) 146H 02/09/21 21:11: Vancomycin Level Trough 20.1H 02/10/21 05:30: Neutrophils (%) (Auto) , Nucleated Red Blood Cells % (auto) 0.0, Neutrophils 66, Lymphocytes (Manual) 14L, Monocytes (Manual) 8H, Eosinophils (Manual) 12H, Anisocytosis 2+, Platelet Estimate NORMAL, Blood Gas Bicarbonate Standard 29.6H, Arterial Blood pH 7.414, Arterial Blood Partial Pressure CO2 49.7H, Arterial Blood Partial Pressure O2 106.7H, Arterial Blood Total CO2 32.6H, Arterial Blood HCO3 31.1H, Arterial Blood Base Excess 5.7H, Arterial Blood Oxygen Saturation 97.9, Anion Gap 5L, Glomerular Filtration Rate > 60.0, Calcium Level 11.4H 02/10/21 07:46: Lactic Acid Level 4.0*H CBC/BMP Laboratory Tests 02/10/21 05:30 Microbiology Microbiology 02/08/21 Acid Fast Stain, Received Pending 02/08/21 Mycobacterial Culture, Received Pending 02/08/21 Fungal Smear, Received Pending 02/08/21 Fungal Culture, Received Pending 02/08/21 Gram Stain - Final, Resulted 02/08/21 Body Fluid Culture, Resulted Pending 02/08/21 Anaerobic Culture, Resulted Pending 02/07/21 Gram Stain - Final, Complete 02/07/21 Sputum Culture - Final, Complete Yeast Like Organism 02/07/21 Blood Culture - Preliminary, Resulted No Growth after 48 hours. All Specime... 02/07/21 Blood Culture - Preliminary, Resulted No Growth after 48 hours. All Specime... 02/07/21 Respiratory Virus Panel (PCR) (RAMIN) - Final, Complete Current Medications Current Medications Medications (Trade) Dose Ordered Sig/[place] Route PRN Reason Start Time Stop Time Status Last Admin Dose Admin Acetaminophen/ Hydrocodone Bitart ([place], Anexsia 5/325) 1 tab Q3H PRN PO MILD PAIN (PS 1-4) 02/08/21 21:25 02/10/21 07:46 DC Apixaban (Eliquis) 2.5 mg BID PO 02/07/21 21:00 02/07/21 19:11 DC Bisacodyl (Dulcolax Suppository) 10 mg Q4HP PRN ND CONSTIPATION 02/08/21 21:25 Cefepime HCl 1 gm/ Dextrose 50 ml @ 100 mls/hr Q12H IV 02/07/21 17:55 02/07/21 18:51 DC Chlorhexidine Gluconate (Peridex Oral Rinse) 15 ml BID MT 02/09/21 09:00 02/10/21 09:10 Dextrose (Dextrose 50%) 25 ml ASDIRECTED PRN IV SEE LABEL COMMENTS 02/07/21 18:00 Docusate Sodium (Colace) 100 mg BID PO 02/09/21 09:00 Enoxaparin Sodium (Lovenox) 40 mg DAILY SC 02/08/21 09:00 02/10/21 09:11 Fentanyl Citrate (Sublimaze) 25 mcg Q5MP PRN IV PAIN LEVEL 5-10 02/08/21 22:10 02/08/21 23:09 DC Fentanyl Citrate (Sublimaze) 25 mcg Q5MP PRN IV PAIN LEVEL 5-10 02/08/21 22:20 02/08/21 23:30 Cancel Glucagon (Glucagon) 1 mg ASDIRECTED PRN SC SEE LABEL COMMENTS 02/07/21 18:00 Glucose (Glucose) 16 GM ASDIRECTED PRN PO SEE LABEL COMMENTS 02/07/21 18:00 Home Med (Med Rec Complete!) ASDIRECTED XX 02/07/21 18:05 02/07/21 18:06 DC Insulin Detemir (Levemir Insulin) 10 units QHS SC 02/10/21 21:00 Insulin Human Lispro (HumaLOG INSULIN) SEE PROTOCOL TABLE AC SC 02/08/21 17:30 02/10/21 09:11 Insulin Human Lispro (HumaLOG INSULIN) SEE PROTOCOL TABLE Q6H SC 02/07/21 18:00 02/08/21 13:14 DC 02/08/21 12:00 Insulin Human Lispro (HumaLOG INSULIN) SEE PROTOCOL TABLE QHS SC 02/08/21 21:00 Ketorolac Tromethamine (ToRADol) 30 mg Q6H IV 02/08/21 23:00 02/13/21 22:59 02/10/21 11:28 Lactated Ringer's 1,000 ml @ 80 mls/hr [id number] IV 02/08/21 22:10 02/08/21 23:09 DC Lactated Ringer's 1,000 ml @ 80 mls/hr [id number] IV 02/08/21 22:20 02/08/21 23:30 Cancel Levalbuterol HCl (Xopenex Neb) 1.25 mg Q2HP PRN NEB SOB/WHEEZING 02/07/21 18:50 02/08/21 17:32 Levalbuterol HCl (Xopenex Neb) 1.25 mg QID NEB 02/07/21 21:00 02/10/21 11:06 Lorazepam (Ativan) 1 mg STAT STAT IV 02/08/21 15:17 02/08/21 15:19 DC 02/08/21 15:40 Magnesium Hydroxide (Milk Of Magnesia) 30 ml DAILY PO 02/09/21 09:00 02/10/21 09:10 Methylprednisolone (SOLUmedrol) 60 mg Q12H IV 02/10/21 09:00 02/10/21 09:12 Metoprolol Succinate (TopROL XL) 50 mg BID PO 02/07/21 21:00 02/07/21 19:18 DC Midazolam HCl (Versed) 2 mg Q15MP PRN IV ANXIETY 02/08/21 21:40 02/10/21 12:09 Morphine Sulfate (Morphine Sulfate Inj) 1 mg Q6H PRN IV MODERATE PAIN (PS 5-7) 02/07/21 19:05 02/09/21 14:31 Norepinephrine Bitartrate 8 mg/ Dextrose 500 ml @ 7.5 mls/hr Q24H IV 02/08/21 21:50 02/09/21 22:53 Ondansetron HCl (ZOFRAN INJection) 4 mg Q4HP PRN IV NAUSEA OR VOMITING 02/07/21 19:00 02/07/21 19:23 Ondansetron HCl (ZOFRAN INJection) 4 mg Q4HP PRN IV NAUSEA OR VOMITING 02/08/21 22:10 02/08/21 23:09 DC Ondansetron HCl (ZOFRAN INJection) 4 mg Q4HP PRN IV NAUSEA OR VOMITING 02/08/21 22:20 02/08/21 23:30 Cancel Oxycodone/ Acetaminophen (Percocet 5mg/ 325mg Tablet) 1 tab Q4H PRN PO MODERATE PAIN (PS 5-7) 02/08/21 21:25 02/10/21 07:46 DC Oxycodone/ Acetaminophen (Percocet 5mg/ 325mg Tablet) 2 tab Q4H PRN PO SEVERE PAIN (PS 8-10) 02/08/21 21:25 02/10/21 07:46 DC Pantoprazole Sodium (Protonix) 40 mg Q24H IV 02/07/21 20:00 02/09/21 20:15 Pantoprazole Sodium (Protonix) 40 mg QHS PO 02/07/21 21:00 02/07/21 19:18 DC Piperacillin Sod/ Tazobactam Sod 3.375 gm/Dextrose 50 ml @ 50 mls/hr Q6H IV 02/08/21 01:00 02/10/21 06:40 Potassium Chloride 20 meq/ IV Miscellaneous Supplies 100 ml @ 100 mls/hr Q1H IV 02/10/21 08:00 02/10/21 08:45 DC Potassium Chloride 20 meq/ IV Miscellaneous Supplies 100 ml @ 100 mls/hr Q1H IV 02/10/21 08:00 02/10/21 09:59 DC 02/10/21 11:27 Potassium Chloride/Dextrose/ Sod Cl 1,000 ml @ 75 mls/hr [id number] IV 02/08/21 21:25 02/10/21 09:14 Propofol (Diprivan) DRIP IV 02/08/21 22:25 02/08/21 23:25 DC Propofol 1000 mg/ IV Miscellaneous Supplies 100 ml @ 4.968 mls/ hr Q12H IV 02/08/21 21:40 02/10/21 12:01 Sertraline HCl (Zoloft) 100 mg DAILY PO 02/08/21 09:00 02/07/21 19:18 DC Simvastatin (Zocor) 10 mg QHS PO 02/07/21 21:00 02/07/21 19:18 DC Sodium Chloride 1,000 ml @ 100 mls/hr Q10H IV 02/07/21 18:05 02/08/21 21:27 DC 02/08/21 14:50 Vancomycin HCl 1000 mg/IV Miscellaneous Supplies 1 each/ Sodium Chloride 270 ml @ 270 mls/hr Q8H IV 02/08/21 04:00 02/08/21 13:47 DC 02/08/21 03:18 Vancomycin HCl 1000 mg/IV Miscellaneous Supplies 1 each/ Sodium Chloride 270 ml @ 270 mls/hr Q8H IV 02/08/21 14:00 02/10/21 12:01 DC 02/10/21 05:13 Vitamin D (Vitamin D) 2,000 units DAILY PO 02/08/21 09:00 02/07/21 19:18 DC Allergies Coded Allergies: No Known Allergies (Unverified , 08/14/19) Tarah Burnette MD Feb 10, 2021 12:18
[2021-02-10] MEDS: METOCLOPRAMIDE INJ 10MG/2ML VIAL (J2765 PER 1) IV SCH ×2 (13:11→20:14)
[2021-02-10 15:28] LABS: HEMATOCRIT 29.8 % (42.0-52.0); HEMOGLOBIN 9.1 g/dl (13.5-17.5)
[2021-02-10] MEDS: LEVEMIR (INSULIN DETEMIR) 1 UNITS/0.01ML SC SCH (20:14)
[2021-02-10] MEDS: PANTOPRAZOLE 40MG VIAL (C9113 PER 1) IV SCH (20:14)
[2021-02-10] MEDS: NOREPINEPHRINE BITARTRATE 8 MG in D5W 492 ML IV SCH (22:00)
[2021-02-11] VITALS (25 sets, daily range): BP systolic 100–126; BP diastolic 54–70; O2SAT 98
[2021-02-11] MEDS: MIDAZOLAM INJ 2MG/2ML VIAL (J2250 PER 1MG) IV PRN ×6 (00:16→20:38)
[2021-02-11] MEDS: PIPERACILLIN/TAZOBACTAM SOD 3.375 GM in D5W MINI-BAG PLUS 50 ML IV SCH ×4 (00:18→18:33)
[2021-02-11] MEDS: HumaLOG INSULIN (NovoLOG) PER UNIT SC SCH ×4 (00:21→17:07)
[2021-02-11] MEDS: propofoL 1,000 MG in IV 1 EA IV SCH ×5 (04:00→20:37)
[2021-02-11] MEDS: KCL 20MEQ IN D5/NS 1000ML 1,000 ML IV SCH ×2 (04:00→16:55)
[2021-02-11 05:03] LABS: ABG BASE EXCESS 4.8 (-2.0-2.0); ABG HCO3 29.7 MEQ/L (22.0-26.0); ABG O2 SATURATION 98.7 % (95.0-99.0); ABG PARTIAL PRESSURE CO2 45.4 mmHg (35.0-45.0); ABG PARTIAL PRESSURE O2 114.1 mmHg (75.0-100.0); ABG STANDARD HCO3 28.9 MEQ/L (22.0-26.0); ABG TOTAL CO2 31.1 MEQ/L (22.0-29.0); ABG pH (ARTERIAL) 7.433 UNITS (7.350-7.450)
[2021-02-11 05:11] LABS: HEMATOCRIT 27.3 % (42.0-52.0); HEMOGLOBIN 8.4 g/dl (13.5-17.5); MEAN CORPUSCULAR HGB CONC 30.8 g/dl (32.0-36.5); MEAN CORPUSCULAR VOLUME 87.8 fl (80.0-96.0); PLATELET COUNT, AUTOMATED 255 10^3/uL (150-450); RED BLOOD COUNT 3.11 10^6/uL (4.30-6.10); WHITE BLOOD COUNT 12.3 10^3/uL (4.0-10.0)
[2021-02-11 05:24] LABS: HYPOCHROMASIA 1+; LYMPHOCYTES 4 % (16-44); MONOCYTES 6 % (0-5); NEUTROPHILS 90 % (28-66); PLATELET ESTIMATE NORMAL (NORMAL)
[2021-02-11 05:26] LABS: ANISOCYTOSIS 1+; POLYCHROMASIA 1+
[2021-02-11 05:43] LABS: ALBUMIN 1.9 GM/DL (3.2-5.2); ALT/SGPT 32 U/L (12-78); BILIRUBIN,TOTAL 0.3 MG/DL (0.2-1.0); BLOOD UREA NITROGEN 17 MG/DL (7-18); CALCIUM LEVEL 10.8 MG/DL (8.5-10.1); CARBON DIOXIDE LEVEL 30 MEQ/L (21-32); CHLORIDE LEVEL 109 MEQ/L (98-107); GLOMERULAR FILTRATION RATE > 60.0 (>56); GLUCOSE, FASTING 250 MG/DL (70-100); POTASSIUM SERUM 4.4 MEQ/L (3.5-5.1); SODIUM LEVEL 143 MEQ/L (136-145); TOTAL PROTEIN 6.4 GM/DL (6.4-8.2)
[2021-02-11] MEDS: KETOROLAC 30 MG/ML 1ML VIAL IV SCH ×4 (06:01→22:41)
[2021-02-11] MEDS: METOCLOPRAMIDE INJ 10MG/2ML VIAL (J2765 PER 1) IV SCH ×3 (06:01→20:38)
[2021-02-11] MEDS: LEVALBUTEROL 1.25 MG/0.5 ML CONCENTRATE NEB NEB SCH ×4 (07:34→19:22)
--- NOTE | 2021-02-11 08:40 | REP ---
INDICATION: while intubated. COMPARISON: 02/10/2021. TECHNIQUE: SINGLE PORTABLE AP VIEW OF THE CHEST WAS PERFORMED. FINDINGS: Endotracheal tube, and bilateral central venous catheters are unchanged. Pleural and parenchymal opacities on the right are unchanged. Left lung is also unchanged in appearance. The cardiomediastinal silhouette is unchanged. IMPRESSION: Stable exam. <Electronically signed by Nasir Villalobos > 02/11/21 [id number]
[2021-02-11] MEDS: MOM 30ML SUSPENSION UDC PO SCH (08:48)
[2021-02-11] MEDS: CHLORHEXIDINE GLUCONATE 0.12 % 15ML UDC (PERIDEX ORAL RINSE) MT SCH ×2 (08:48→20:38)
[2021-02-11] MEDS: methylPREDNISolone 125MG 2ML VIAL IV SCH ×2 (08:49→20:37)
[2021-02-11] MEDS: ENOXAPARIN 40MG/0.4ML SYRINGE (J1650 PER 10MG) SC SCH (08:49)
[2021-02-11] MEDS: DOCUSATE SODIUM 100MG CAPSULE PO SCH ×2 (08:50→20:38)
[2021-02-11] MEDS: MORPHINE 2 MG/ML 1ML VIAL (J2270) IV PRN ×2 (12:09→16:54)
--- NOTE | 2021-02-11 12:45 | IPNPDOC ---
Date Seen The patient was seen on 02/11/21. Progress Note SUBJECTIVE: Failed weaning trial this AM. Family met with pulmonary/CC attending Dr. Glover 02/10/21, changed LOC to DNR with trial intubation. Would like family to see before advancing further. Added reglan, as residuals with tube feeding were >200 02/10/21, improved today and he is at goal. OBJECTIVE: PHYSICAL EXAMINATION: VENT SETTINGS: PRVC mode, FiO2 30%, PEEP 5, RR 15, TV 400 with VS VS:115/63, HR 101 sinus tach, 98% on vent settings above, RR 22, afebrile CONSTITUTIONAL: Intubated, sedated EYES: PERRLA, EOM intact HENT, MOUTH: Normocephalic, atraumatic, moist mucous membranes, endotracheal tube secured in place NECK: SUPPLE, no JVD, no lymphadenopathy, no carotid bruit CV: sinus tachycardia, S1S2 normal, no murmurs/rubs/gallops CHEST: left subclavian central line in place, multiple incisions covered in bandages RESPIRATORY: Rhonchi b/l in upper and lower lung carranza, no rales/wheezes GI: PEG tube , area around tube appears clean, well healing. Nontender to palpation abdomen, diffuse, BS positive in 4 quadrants, no rebound or guarding, no organomegaly : pardo catheter MUSCULOSKELETAL: left radial line in place. Normal ROM. No cyanosis, clubbing, swelling, joint deformity, extremity edema INTEGUMENTARY: Intact, no rashes, no lesions, no erythema NEUROLOGIC: following some commands, no focal deficits LABORATORY DATA: Please see below MICRO: F/u all pleural studies/cx Sputum GS: QUALITY GOOD, MODERATE WBCS, MANY GRAM POSITIVE COCCI, FEW GRAM NEGATIVE RODS, MANY GRAM POSITIVE RODS Sputum Cx: yeast BCx NG to date IMAGING: CXR 02/09/21: There is pleural thickening along the right lateral chest wall and a large opacity occupying the inferior half of the right lung. This is unchanged from the comparison studies. There is a small focal patchy density inferiorly in the left lung, unchanged. There is a left subclavian central venous catheter with its tip in the superior vena cava in satisfactory position, unchanged. There is a right IJ [id number] catheter with the tip in the right atrium in satisfactory position, unchanged. Echocardiogram 02/08/21: EF 75% Sinus tachycardia without intraventricular conduction disturbance. M-mode and 2-dimensional echocardiography was performed with pulse and continuous wave Doppler. Normal left ventricular size and wall thickness with hyperkinetic wall motion. Normal left atrial size. Unable to define LV diastolic function in light of superimposed early and late diastolic filling patterns with his tachycardia. Right heart chambers were somewhat compressed by the pericardial fluid, but wallmotion appeared to be normal with at least moderately severe pulmonary hypertension. Prominently dilated IVC with absent respiratory collapse in keeping with an elevated central venous pressure. Normal aortic dimensions. Normal appearing aortic valve. Normal appearing mitral valvular apparatus with leaflet excursion and no posterior systolic buckling. No apparent intracardiac mass. Large pericardial effusion with the heart swinging within the fluid. As mentioned, there was some compression of the right heart chambers and obvious respiratory dependent variation in pulse Doppler signals in keeping with cardiac tamponade. The fluid measured 1.8 cm posteriorly, 0.9 cm laterally, and 2.0 cm anterior to the right ventricle. CTA chest: 1. Interval development of a large pericardial effusion since December but similar to January. 2. Development of a 15 cm mass in the subcarinal location extending to the right and left hilar region and inferiorly causing obstruction of the esophagus and impressing on the left ventricle and pulmonary veins 15 by 5.5 cm. 3. Probable abscess measuring 3 cm below the level of the obstructed esophagus and communicating with a 6 cm abscess or necrosis at the right lower lung with an air-fluid level. This is also seen in January. 4. Extensive malignant infiltration along the right parahilar region and right pleural surface. 5. No evidence of pulmonary embolus. CT abd/pelvis with contrast: 1. Very large mass lesion subcarinal location and right thorax contiguous with the right diaphragm and liver. 2. Obstructed esophagus with gastrostomy tube in the stomach. CXR: Stable pleural and parenchymal opacities on the right. 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 Millan) admitted under inpatient status for SOB and recent hypoxic respiratory failure 2/2 to HCAP, sepsis r/o worsened pulmonary abscess, abdominal pain r/o acute intrabdominal pathology with recent feeding tube placement. PLAN: Acute hypoxic respiratory failure likely multifactorial and 2/2 to Stage IV lung CA, HCAP, sepsis -Currently intubated and on ventilator, see above for VS and vent settings -Propofol, versed PRN -ABG pH 7.433 / pCO2 45.4 / pO2 114 / pHCO3 29.7, FiO2 decreased to 30% from 35% -C/w treatment plan below for individual issues Acute hypoxic respiratory failure 2/2 to HCAP, pulmonary abscess vs. necrotic lung mass, sepsis -WBC 12.3, tachycardic, LA remains elevated -VS and Vent settings above -Failed weaning trial this AM again -Imaging above -Sputum culture: yeast -Pericardial fluid tests/cultures- pending -D/c vancomycin per Dr. Le, c/w zosyn, IVFs, levalbuterol ATC and PRN, methylprednisolone 60 mg IV BID, zofran, pain control -CT surgery, pulmonary consulted Pericardial tamponade -Echo above -POD 3 open tube pericardiostomy after attempt with percutaneous tube pericardiostomy -Tube removed -Dr. Duong, CT surgery, following closely -No plans to repeat echocardiogram Hypotension s/p pericardiostomy- improving -Levophed stopped 02/10/21, IVS -C/w treatment above, arterial line in place to closely monitor Hypercalcemia likely 2/2 to malignancy -Still elevated -C/w prednisone, fluids -Bisphosphonate therapy to be considered if still high Anemia -H/H corrected initially after 1 unit PRBC but now down again to 8.4/27.3 -F/u occult blood -CBC daily -Transfuse for Hgb <7 -No s/s of bleeding Dysphagia 2/2 esophageal compression by extrinsic mass, supposed to start radiation for extrinsic mass (Dx 01/19- hospitalization) -Was to start palliative RT to esophagus obstructing mass -CT abd/pelvis with contrast above, no CI to start tube feedings -Jevity 1.5 continuous tube feedings started , having issues with residuals -Started reglan and restarted, currently at goal 60/hr Stage IV squamous cell carcinoma of the lung s/p radiation/chemo -Follows with Dr. Armijo -Dr. Byers has seen for palliative radiation -All treatments on hold for now DM type II -On continuous tube feedings Jevity -levemir HS -Q6H ISS, FS Atrial fibrillation -currently NSR -Lovenox px dosing HLD -Holding home statin Depression / Anxiety / Panic attacks -Holding home meds for now GERD -PPI IV DVT px -Lovenox Resolved issues: Acute hypokalemia DISPOSITION: Admitted as acute inpatient to ICU. Med/onc, rad/onc, CT surg, CC consulted. Dr. Glover discussed with about overall poor prognosis of patient, LOC changed to DNR with Trial of intubation. Awaiting family to see patient then may withdrawl care. Patient's prognosis remains poor. TOTAL AMOUNT OF CRITICAL CARE TIME SPENT CARING FOR PATIENT (nonprocedural): 50 MINS VS, I&O, 24H, Fishbone Vital Signs/I&O Vital Signs Date Time Temp Pulse Resp B/P (MAP) Pulse Ox O2 Delivery O2 Flow Rate FiO2 02/11/21 12:09 22 30 Room Air 02/11/21 11:22 100 02/11/21 10:00 30 02/11/21 10:00 115/63 02/11/21 07:56 97.8 02/08/21 19:42 6.0 I&O- Last 24 Hours up to 6 AM 02/11/21 06:00 Intake Total 5638.9 ml Output Total 480 ml Balance 5158.9 ml Laboratory Data 24H LABS Laboratory Tests 2 02/10/21 13:15: Lactic Acid Followup at 4 Hours 3.9*H, Calcium Level 10.6H 02/10/21 16:46: Bedside Glucose (Misc Panel) 204H 02/10/21 20:13: Bedside Glucose (Misc Panel) 204H 02/11/21 00:15: Bedside Glucose (Misc Panel) 199H 02/11/21 04:45: Neutrophils (%) (Auto) , Nucleated Red Blood Cells % (auto) 0.2H, Neutrophils 90H, Lymphocytes (Manual) 4L, Monocytes (Manual) 6H, Polychromasia 1+, Hypochromasia 1+, Anisocytosis 1+, Platelet Estimate NORMAL, Blood Gas Bicarbon ate Standard 28.9H, Arterial Blood pH 7.433, Arterial Blood Partial Pressure CO2 45.4H, Arterial Blood Partial Pressure O2 114.1H, Arterial Blood Total CO2 31.1H, Arterial Blood HCO3 29.7H, Arterial Blood Base Excess 4.8H, Arterial Blood Oxygen Saturation 98.7, Anion Gap 4L, Glomerular Filtration Rate > 60.0, Calcium Level 10.8H, Total Bilirubin 0.3, Aspartate Amino Transf (AST/SGOT) 22, Alanine Aminotransferase (ALT/SGPT) 32, Alkaline Phosphatase 105, Total Protein 6.4, Albumin 1.9L, Albumin/Globulin Ratio 0.4 02/11/21 08:51: Lactic Acid Level 3.8*H CBC/BMP Laboratory Tests 02/10/21 15:15 02/11/21 04:45 Microbiology Microbiology 02/08/21 Acid Fast Stain, Received Pending 02/08/21 Mycobacterial Culture, Received Pending 02/08/21 Fungal Smear, Received Pending 02/08/21 Fungal Culture, Received Pending 02/08/21 Gram Stain - Final, Complete 02/08/21 Body Fluid Culture - Final, Complete 02/08/21 Anaerobic Culture - Final, Complete 02/07/21 Gram Stain - Final, Complete 02/07/21 Sputum Culture - Final, Complete Yeast Like Organism 02/07/21 Blood Culture - Preliminary, Resulted No Growth after 72 hours. All specime... 02/07/21 Blood Culture - Preliminary, Resulted No Growth after 72 hours. All specime... 02/07/21 Respiratory Virus Panel (PCR) ([facility]) - Final, Complete Tarah Burnette MD Feb 11, 2021 12:45
[2021-02-11] MEDS: PANTOPRAZOLE 40MG VIAL (C9113 PER 1) IV SCH (20:37)
[2021-02-11] MEDS: LEVEMIR (INSULIN DETEMIR) 1 UNITS/0.01ML SC SCH (20:38)
[2021-02-12] VITALS (24 sets, daily range): BP systolic 95–134; BP diastolic 53–75; O2SAT 99
[2021-02-12] MEDS: PIPERACILLIN/TAZOBACTAM SOD 3.375 GM in D5W MINI-BAG PLUS 50 ML IV SCH ×4 (00:01→17:59)
[2021-02-12] MEDS: MIDAZOLAM INJ 2MG/2ML VIAL (J2250 PER 1MG) IV PRN ×4 (00:02→14:27)
[2021-02-12] MEDS: MORPHINE 2 MG/ML 1ML VIAL (J2270) IV PRN ×5 (00:02→20:07)
[2021-02-12] MEDS: HumaLOG INSULIN (NovoLOG) PER UNIT SC SCH ×5 (00:02→23:13)
[2021-02-12] MEDS: propofoL 1,000 MG in IV 1 EA IV SCH ×7 (02:40→23:07)
[2021-02-12] MEDS: KETOROLAC 30 MG/ML 1ML VIAL IV SCH (05:22)
[2021-02-12] MEDS: METOCLOPRAMIDE INJ 10MG/2ML VIAL (J2765 PER 1) IV SCH ×3 (05:22→20:05)
[2021-02-12 05:38] LABS: ABG BASE EXCESS 3.4 (-2.0-2.0); ABG HCO3 28.2 MEQ/L (22.0-26.0); ABG O2 SATURATION 97.5 % (95.0-99.0); ABG PARTIAL PRESSURE CO2 44.2 mmHg (35.0-45.0); ABG PARTIAL PRESSURE O2 98.3 mmHg (75.0-100.0); ABG STANDARD HCO3 27.5 MEQ/L (22.0-26.0); ABG TOTAL CO2 29.6 MEQ/L (22.0-29.0); ABG pH (ARTERIAL) 7.423 UNITS (7.350-7.450)
[2021-02-12 05:41] LABS: HEMATOCRIT 28.5 % (42.0-52.0); HEMOGLOBIN 8.7 g/dl (13.5-17.5); MEAN CORPUSCULAR HEMOGLOBIN 27.2 pg (27.0-33.0); MEAN CORPUSCULAR HGB CONC 30.5 g/dl (32.0-36.5); MEAN CORPUSCULAR VOLUME 89.1 fl (80.0-96.0); PLATELET COUNT, AUTOMATED 288 10^3/uL (150-450); WHITE BLOOD COUNT 16.1 10^3/uL (4.0-10.0)
[2021-02-12 06:01] LABS: ALBUMIN 1.9 GM/DL (3.2-5.2); ALT/SGPT 32 U/L (12-78); BILIRUBIN,TOTAL 0.2 MG/DL (0.2-1.0); BLOOD UREA NITROGEN 22 MG/DL (7-18); CALCIUM LEVEL 10.5 MG/DL (8.5-10.1); CARBON DIOXIDE LEVEL 33 MEQ/L (21-32); CHLORIDE LEVEL 112 MEQ/L (98-107); CREATININE FOR GFR 0.73 MG/DL (0.70-1.30); GLOMERULAR FILTRATION RATE > 60.0 (>56); GLUCOSE, FASTING 180 MG/DL (70-100); POTASSIUM SERUM 5.5 MEQ/L (3.5-5.1); SODIUM LEVEL 145 MEQ/L (136-145); TOTAL PROTEIN 6.4 GM/DL (6.4-8.2)
[2021-02-12 06:17] LABS: EOSINOPHILS 1 % (0-3); LYMPHOCYTES 12 % (16-44); MONOCYTES 4 % (0-5); MYELOCYTES 1 % (0-0); NEUTROPHILS 80 % (28-66); PLATELET ESTIMATE NORMAL (NORMAL)
[2021-02-12 06:18] LABS: ANISOCYTOSIS 2+; HYPOCHROMASIA 1+
[2021-02-12] MEDS: D5W/0.9% SODIUM CHLORIDE 1,000 ML IV SCH ×2 (06:31→22:49)
[2021-02-12] MEDS: LEVALBUTEROL 1.25 MG/0.5 ML CONCENTRATE NEB NEB SCH ×4 (07:50→21:00)
[2021-02-12] MEDS: CHLORHEXIDINE GLUCONATE 0.12 % 15ML UDC (PERIDEX ORAL RINSE) MT SCH ×2 (07:54→20:04)
[2021-02-12] MEDS: methylPREDNISolone 125MG 2ML VIAL IV SCH ×2 (07:54→20:05)
[2021-02-12] MEDS: ENOXAPARIN 40MG/0.4ML SYRINGE (J1650 PER 10MG) SC SCH (07:54)
[2021-02-12] MEDS: MOM 30ML SUSPENSION UDC PO SCH (07:55)
[2021-02-12] MEDS: DOCUSATE SODIUM 100MG CAPSULE PO SCH ×2 (07:55→20:05)
--- NOTE | 2021-02-12 13:58 | IPNPDOC ---
Date Seen The patient was seen on 02/12/21. Progress Note SUBJECTIVE: Increased morphine PRN helps with patient's agitation on the ventilatior; however, failed weaning trial again this AM. To meet with family this afternoon. Holding tube feeds this AM due to incr residuals, will try restarting again this evening. OBJECTIVE: PHYSICAL EXAMINATION: VENT SETTINGS: PRVC mode, FiO2 30%, PEEP 5, RR 15, TV 400 with VS VS:119/64, HR 80 sinus tach, 98% on vent settings above, RR 16, afebrile CONSTITUTIONAL: Intubated, sedated EYES: PERRLA, EOM intact HENT, MOUTH: Normocephalic, atraumatic, moist mucous membranes, endotracheal tube secured in place NECK: SUPPLE, no JVD, no lymphadenopathy, no carotid bruit CV: sinus tachycardia, S1S2 normal, no murmurs/rubs/gallops CHEST: left subclavian central line in place, multiple incisions covered in bandages RESPIRATORY: Rhonchi b/l in upper and lower lung carranza, no rales/wheezes GI: PEG tube , area around tube appears clean. Nontender to palpation abdomen, diffuse, BS positive in 4 quadrants, no rebound or guarding, no organomegaly : pardo catheter MUSCULOSKELETAL: left radial line in place. Normal ROM. No cyanosis, clubbing, swelling, joint deformity, nonpitting upper and lower extremity edema INTEGUMENTARY: Intact, no rashes, no lesions, no erythema NEUROLOGIC: following some commands, no focal deficits LABORATORY DATA: Please see below MICRO: Pleural fluid aerobic/anaerobic GS and culture: NG Pleural fluid fungal studies: pending Sputum GS: QUALITY GOOD, MODERATE WBCS, MANY GRAM POSITIVE COCCI, FEW GRAM NEGATIVE RODS, MANY GRAM POSITIVE RODS Sputum Cx: yeast BCx NG to date IMAGING: CXR 02/11/21: Unchanged from prior CXR CXR 02/09/21: There is pleural thickening along the right lateral chest wall and a large opacity occupying the inferior half of the right lung. This is unchanged from the comparison studies. There is a small focal patchy density inferiorly in the left lung, unchanged. There is a left subclavian central venous catheter with its tip in the superior vena cava in satisfactory position, unchanged. There is a right IJ Mnmidx-X-Bumb catheter with the tip in the right atrium in satisfactory position, unchanged. Echocardiogram 02/08/21: EF 75% Sinus tachycardia without intraventricular conduction disturbance. M-mode and 2-dimensional echocardiography was performed with pulse and continuous wave Doppler. Normal left ventricular size and wall thickness with hyperkinetic wall motion. Normal left atrial size. Unable to define LV diastolic function in light of superimposed early and late diastolic filling patterns with his tachycardia. Right heart chambers were somewhat compressed by the pericardial fluid, but wallmotion appeared to be normal with at least moderately severe pulmonary hypertension. Prominently dilated IVC with absent respiratory collapse in keeping with an elevated central venous pressure. Normal aortic dimensions. Normal appearing aortic valve. Normal appearing mitral valvular apparatus with leaflet excursion and no posterior systolic buckling. No apparent intracardiac mass. Large pericardial effusion with the heart swinging within the fluid. As mentioned, there was some compression of the right heart chambers and obvious respiratory dependent variation in pulse Doppler signals in keeping with cardiac tamponade. The fluid measured 1.8 cm posteriorly, 0.9 cm laterally, and 2.0 cm anterior to the right ventricle. CTA chest: 1. Interval development of a large pericardial effusion since December but similar to January. 2. Development of a 15 cm mass in the subcarinal location extending to the right and left hilar region and inferiorly causing obstruction of the esophagus and impressing on the left ventricle and pulmonary veins 15 by 5.5 cm. 3. Probable abscess measuring 3 cm below the level of the obstructed esophagus and communicating with a 6 cm abscess or necrosis at the right lower lung with an air-fluid level. This is also seen in January. 4. Extensive malignant infiltration along the right parahilar region and right pleural surface. 5. No evidence of pulmonary embolus. CT abd/pelvis with contrast: 1. Very large mass lesion subcarinal location and right thorax contiguous with the right diaphragm and liver. 2. Obstructed esophagus with gastrostomy tube in the stomach. CXR: Stable pleural and parenchymal opacities on the right. 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 Millan) admitted under inpatient status for SOB and recent hypoxic respiratory failure 2/2 to HCAP, sepsis r/o worsened pulmonary abscess, abdominal pain r/o acute intrabdominal pathology with recent feeding tube placement. PLAN: Acute hypoxic respiratory failure likely multifactorial and 2/2 to Stage IV lung CA, HCAP, sepsis -Currently intubated and on ventilator, see above for VS and vent settings -Failed weaning trial everyday he has been in ICU -Propofol, morphine, versed PRN -C/w treatment plan below for individual issues Acute hypoxic respiratory failure multifactorial 2/2 to Stage IV squamous cell carcinoma of the lung, HCAP, pulmonary abscess vs. necrotic lung mass, sepsis -Components 2/2 to pericardial tamponade -WBC 16.1, resolved tachycardic, LA remains elevated -VS and Vent settings above -Imaging above -Sputum culture: yeast -Pericardial fluid anaerobic/aerobic GS/cultures- NG , fungal studies -On zosyn, IVFs, levalbuterol ATC and PRN, methylprednisolone 60 mg IV BID, zofran, pain control. Previously on Vancomycin but stopped. -CT surgery has seen , pulmonary following Pericardial tamponade -Echo above -POD 4 open tube pericardiostomy after attempt with percutaneous tube pericardiostomy, tube later removed -Dr. Duong, CT surgery has seen -S/s of pericardial tamponade improved Hyperkalemia likely 2/2 to KCL in fluids -fluids changed -F/u repeat labs Hypotension s/p pericardiostomy- improving -Levophed stopped 02/10/21 -IVFs -C/w treatment above, arterial line in place to closely monitor Hypercalcemia likely 2/2 to malignancy -Still elevated -C/w prednisone, fluids -Bisphosphonate therapy to be considered if still high Anemia -H/H 8.05/31, slightly improved -F/u occult blood when patient has BM, given bowel meds today -CBC daily -Transfuse for Hgb <7 -No s/s of bleeding Dysphagia 2/2 esophageal compression by extrinsic mass, supposed to start radiation for extrinsic mass (Dx 01/19- hospitalization) -Was to start palliative RT to esophagus obstructing mass -CT abd/pelvis with contrast above, no CI to start tube feedings -Jevity 1.5 continuous tube feedings have been challenging as residuals have required stopping/starting several times -C/w reglan and will restart later today, currently at goal 60/hr Stage IV squamous cell carcinoma of the lung s/p radiation/chemo -Follows with Dr. Armijo -Dr. Byers has seen for palliative radiation -All treatments on hold for now DM type II -BS slightly high but on D5NS IVFs, not getting nutrition consistently with stopping/resuming tube feedings -Tube feedings Jevity, currently on hold -levemir HS -Q6H ISS, FS Atrial fibrillation -currently NSR -Lovenox px dosing HLD -Holding home statin Depression / Anxiety / Panic attacks -Holding home meds for now GERD -PPI IV DVT px -Lovenox Resolved issues: Acute hypokalemia DISPOSITION: Admitted as acute inpatient to ICU. Med/onc, rad/onc, CT surg, CC consulted. Dr. Glover discussed with about overall poor prognosis of patient, LOC changed to DNR with Trial of intubation. To meet with patient's and HCP this afternoon. Patient's prognosis remains poor. TOTAL AMOUNT OF CRITICAL CARE TIME SPENT CARING FOR PATIENT (nonprocedural): 60 MINS VS, I&O, 24H, Fishbone Vital Signs/I&O Vital Signs Date Time Temp Pulse Resp B/P (MAP) Pulse Ox O2 Delivery O2 Flow Rate FiO2 02/12/21 12:00 30 02/12/21 11:47 83 15 02/12/21 05:00 119/64 98 Ventilator 02/12/21 04:00 97.7 02/08/21 19:42 6.0 I&O- Last 24 Hours up to 6 AM 02/12/21 06:00 Intake Total 3102.1 ml Output Total 360 ml Balance 2742.1 ml Laboratory Data 24H LABS Laboratory Tests 2 02/11/21 16:58: Bedside Glucose (Misc Panel) 263H 02/11/21 20:45: Bedside Glucose (Misc Panel) 169H 02/11/21 23:54: Bedside Glucose (Misc Panel) 263H 02/12/21 05:23: Neutrophils (%) (Auto) , Nucleated Red Blood Cells % (auto) 0.2H, Neutrophils 80H, Band Neutrophils 2, Lymphocytes (Manual) 12L, Monocytes (Manual) 4, Eosinophils (Manual) 1, Myelocytes 1H, Hypochromasia 1+, Anisocytosis 2+, Platelet Estimate NORMAL, Blood Gas Bicarbonate Standard 27.5H, Arterial Blood pH 7.423, Arterial Blood Partial Pressure CO2 44.2, Arterial Blood Partial Pressure O2 98.3, Arterial Blood Total CO2 29.6H, Arterial Blood HCO3 28.2H, Arterial Blood Base Excess 3.4H, Arterial Blood Oxygen Saturation 97.5, Anion Ga p 0L, Glomerular Filtration Rate > 60.0, Calcium Level 10.5H, Total Bilirubin 0.2, Aspartate Amino Transf (AST/SGOT) 14, Alanine Aminotransferase (ALT/SGPT) 32, Alkaline Phosphatase 94, Total Protein 6.4, Albumin 1.9L, Albumin/Globulin Ratio 0.4 02/12/21 11:22: Bedside Glucose (Misc Panel) 180H CBC/BMP Laboratory Tests 02/12/21 05:23 Microbiology Microbiology 02/08/21 Acid Fast Stain, Received Pending 02/08/21 Mycobacterial Culture, Received Pending 02/08/21 Fungal Smear, Received Pending 02/08/21 Fungal Culture, Received Pending 02/08/21 Gram Stain - Final, Complete 02/08/21 Body Fluid Culture - Final, Complete 02/08/21 Anaerobic Culture - Final, Complete 02/07/21 Gram Stain - Final, Complete 02/07/21 Sputum Culture - Final, Complete Yeast Like Organism 02/07/21 Blood Culture - Preliminary, Resulted No Growth after 72 hours. All specime... 02/07/21 Blood Culture - Preliminary, Resulted No Growth after 72 hours. All specime... 02/07/21 Respiratory Virus Panel (PCR) (RAMIN) - Final, Complete Current Medications Current Medications Medications (Trade) Dose Ordered Sig/[place] Route PRN Reason Start Time Stop Time Status Last Admin Dose Admin Acetaminophen/ Hydrocodone Bitart (Ipava, Anexsia 5/325) 1 tab Q3H PRN PO MILD PAIN (PS 1-4) 02/08/21 21:25 02/10/21 07:46 DC Apixaban (Eliquis) 2.5 mg BID PO 02/07/21 21:00 02/07/21 19:11 DC Bisacodyl (Dulcolax Suppository) 10 mg Q4HP PRN [place] CONSTIPATION 02/08/21 21:25 02/12/21 07:54 Cefepime HCl 1 gm/ Dextrose 50 ml @ 100 mls/hr Q12H IV 02/07/21 17:55 02/07/21 18:51 DC Chlorhexidine Gluconate (Peridex Oral Rinse) 15 ml BID MT 02/09/21 09:00 02/12/21 07:54 Dextrose (Dextrose 50%) 25 ml ASDIRECTED PRN IV SEE LABEL COMMENTS 02/07/21 18:00 Dextrose/Sodium Chloride 1,000 ml @ 75 mls/hr [id number] IV 02/12/21 06:20 02/12/21 06:31 Docusate Sodium (Colace) 100 mg BID PO 02/09/21 09:00 Enoxaparin Sodium (Lovenox) 40 mg DAILY SC 02/08/21 09:00 02/12/21 07:54 Fentanyl Citrate (Sublimaze) 25 mcg Q5MP PRN IV PAIN LEVEL 5-10 02/08/21 22:10 02/08/21 23:09 DC Fentanyl Citrate (Sublimaze) 25 mcg Q5MP PRN IV PAIN LEVEL 5-10 02/08/21 22:20 02/08/21 23:30 Cancel Glucagon (Glucagon) 1 mg ASDIRECTED PRN SC SEE LABEL COMMENTS 02/07/21 18:00 Glucose (Glucose) 16 GM ASDIRECTED PRN PO SEE LABEL COMMENTS 02/07/21 18:00 Home Med (Med Rec Complete!) ASDIRECTED XX 02/07/21 18:05 02/07/21 18:06 DC Insulin Detemir (Levemir Insulin) 10 units QHS SC 02/10/21 21:00 02/11/21 20:38 Insulin Human Lispro (HumaLOG INSULIN) SEE PROTOCOL TABLE AC SC 02/08/21 17:30 02/10/21 22:51 DC 02/10/21 18:07 Insulin Human Lispro (HumaLOG INSULIN) SEE PROTOCOL TABLE Q6H SC 02/11/21 00:00 02/12/21 11:25 Insulin Human Lispro (HumaLOG INSULIN) SEE PROTOCOL TABLE Q6H SC 02/07/21 18:00 02/08/21 13:14 DC 02/08/21 12:00 Insulin Human Lispro (HumaLOG INSULIN) SEE PROTOCOL TABLE QHS SC 02/08/21 21:00 02/10/21 22:51 DC Ketorolac Tromethamine (ToRADol) 30 mg Q6H IV 02/08/21 23:00 02/12/21 08:17 DC 02/12/21 05:22 Lactated Ringer's 1,000 ml @ 80 mls/hr [id number] IV 02/08/21 22:10 02/08/21 23:09 DC Lactated Ringer's 1,000 ml @ 80 mls/hr [id number] IV 02/08/21 22:20 02/08/21 23:30 Cancel Levalbuterol HCl (Xopenex Neb) 1.25 mg Q2HP PRN NEB SOB/WHEEZING 02/07/21 18:50 02/08/21 17:32 Levalbuterol HCl (Xopenex Neb) 1.25 mg QID NEB 02/07/21 21:00 02/12/21 11:47 Lorazepam (Ativan) 1 mg STAT STAT IV 02/08/21 15:17 02/08/21 15:19 DC 02/08/21 15:40 Magnesium Hydroxide (Milk Of Magnesia) 30 ml DAILY PO 02/09/21 09:00 02/12/21 07:55 Methylprednisolone (SOLUmedrol) 60 mg Q12H IV 02/10/21 09:00 02/12/21 07:54 Metoclopramide HCl (REGLAN INJection) 10 mg Q8H IV 02/10/21 13:00 02/12/21 05:22 Metoprolol Succinate (TopROL XL) 50 mg BID PO 02/07/21 21:00 02/07/21 19:18 DC Midazolam HCl (Versed) 2 mg Q15MP PRN IV ANXIETY 02/08/21 21:40 02/12/21 03:51 Morphine Sulfate (Morphine Sulfate Inj) 1 mg Q6H PRN IV MODERATE PAIN (PS 5-7) 02/07/21 19:05 02/11/21 16:18 DC 02/11/21 12:09 Morphine Sulfate (Morphine Sulfate Inj) 2 mg Q4H PRN IV PAIN 02/12/21 02:00 02/12/21 05:22 Morphine Sulfate (Morphine Sulfate Inj) 2 mg Q6H PRN IV MODERATE PAIN (PS 5-7) 02/11/21 16:00 02/12/21 01:59 DC 02/12/21 00:02 Norepinephrine Bitartrate 8 mg/ Dextrose 500 ml @ 7.5 mls/hr Q24H IV 02/08/21 21:50 02/12/21 08:17 DC 02/09/21 22:53 Ondansetron HCl (ZOFRAN INJection) 4 mg Q4HP PRN IV NAUSEA OR VOMITING 02/07/21 19:00 02/07/21 19:23 Ondansetron HCl (ZOFRAN INJection) 4 mg Q4HP PRN IV NAUSEA OR VOMITING 02/08/21 22:10 02/08/21 23:09 DC Ondansetron HCl (ZOFRAN INJection) 4 mg Q4HP PRN IV NAUSEA OR VOMITING 02/08/21 22:20 02/08/21 23:30 Cancel Oxycodone/ Acetaminophen (Percocet 5mg/ 325mg Tablet) 1 tab Q4H PRN PO MODERATE PAIN (PS 5-7) 02/08/21 21:25 02/10/21 07:46 DC Oxycodone/ Acetaminophen (Percocet 5mg/ 325mg Tablet) 2 tab Q4H PRN PO SEVERE PAIN (PS 8-10) 02/08/21 21:25 02/10/21 07:46 DC Pantoprazole Sodium (Protonix) 40 mg Q24H IV 02/07/21 20:00 02/11/21 20:37 Pantoprazole Sodium (Protonix) 40 mg QHS PO 02/07/21 21:00 02/07/21 19:18 DC Piperacillin Sod/ Tazobactam Sod 3.375 gm/Dextrose 50 ml @ 50 mls/hr Q6H IV 02/08/21 01:00 02/12/21 06:26 Potassium Chloride 20 meq/ IV Miscellaneous Supplies 100 ml @ 100 mls/hr Q1H IV 02/10/21 08:00 02/10/21 08:45 DC Potassium Chloride 20 meq/ IV Miscellaneous Supplies 100 ml @ 100 mls/hr Q1H IV 02/10/21 08:00 02/10/21 09:59 DC 02/10/21 11:27 Potassium Chloride/Dextrose/ Sod Cl 1,000 ml @ 75 mls/hr [id number] IV 02/08/21 21:25 02/12/21 06:20 DC 02/11/21 16:55 Propofol (Diprivan) DRIP IV 02/08/21 22:25 02/08/21 23:25 DC Propofol 1000 mg/ IV Miscellaneous Supplies 100 ml @ 4.968 mls/ hr Q12H IV 02/08/21 21:40 02/12/21 13:05 Sertraline HCl (Zoloft) 100 mg DAILY PO 02/08/21 09:00 02/07/21 19:18 DC Simvastatin (Zocor) 10 mg QHS PO 02/07/21 21:00 02/07/21 19:18 DC Sodium Chloride 1,000 ml @ 100 mls/hr Q10H IV 02/07/21 18:05 02/08/21 21:27 DC 02/08/21 14:50 Vancomycin HCl 1000 mg/IV Miscellaneous Supplies 1 each/ Sodium Chloride 270 ml @ 270 mls/hr Q8H IV 02/08/21 04:00 02/08/21 13:47 DC 02/08/21 03:18 Vancomycin HCl 1000 mg/IV Miscellaneous Supplies 1 each/ Sodium Chloride 270 ml @ 270 mls/hr Q8H IV 02/08/21 14:00 02/10/21 12:01 DC 02/10/21 05:13 Vitamin D (Vitamin D) 2,000 units DAILY PO 02/08/21 09:00 02/07/21 19:18 DC Allergies Coded Allergies: No Known Allergies (Unverified , 08/14/19) Tarah Burnette MD Feb 12, 2021 13:58
[2021-02-12] MEDS: PANTOPRAZOLE 40MG VIAL (C9113 PER 1) IV SCH (20:04)
[2021-02-12] MEDS: LEVEMIR (INSULIN DETEMIR) 1 UNITS/0.01ML SC SCH (20:05)
[2021-02-13] VITALS (12 sets, daily range): BP systolic 108–136; BP diastolic 67–76
[2021-02-13] MEDS: PIPERACILLIN/TAZOBACTAM SOD 3.375 GM in D5W MINI-BAG PLUS 50 ML IV SCH ×2 (00:20→06:04)
[2021-02-13] MEDS: propofoL 1,000 MG in IV 1 EA IV SCH ×3 (02:22→09:16)
[2021-02-13] MEDS: MIDAZOLAM INJ 2MG/2ML VIAL (J2250 PER 1MG) IV PRN ×3 (04:16→11:36)
[2021-02-13] MEDS: MORPHINE 2 MG/ML 1ML VIAL (J2270) IV PRN ×3 (04:55→17:56)
[2021-02-13] MEDS: METOCLOPRAMIDE INJ 10MG/2ML VIAL (J2765 PER 1) IV SCH (05:59)
[2021-02-13] MEDS: HumaLOG INSULIN (NovoLOG) PER UNIT SC SCH (06:04)
[2021-02-13] MEDS: LEVALBUTEROL 1.25 MG/0.5 ML CONCENTRATE NEB NEB SCH ×2 (07:56→11:09)
[2021-02-13] MEDS: CHLORHEXIDINE GLUCONATE 0.12 % 15ML UDC (PERIDEX ORAL RINSE) MT SCH (08:59)
[2021-02-13] MEDS: ENOXAPARIN 40MG/0.4ML SYRINGE (J1650 PER 10MG) SC SCH (09:00)
[2021-02-13] MEDS: MOM 30ML SUSPENSION UDC PO SCH (09:00)
[2021-02-13] MEDS: DOCUSATE SODIUM 100MG CAPSULE PO SCH (09:00)
[2021-02-13] MEDS: methylPREDNISolone 125MG 2ML VIAL IV SCH (09:16)
--- NOTE | 2021-02-13 10:07 | CCN ---
CRITICAL CARE NOTE DATE: 02/12/2021 CRITICAL CARE TIME: Thirty-six minutes. This excludes all procedures. SUBJECTIVE: I attended the patient at bedside. He remains on mechanical ventilation. I again attempted spontaneous breathing trial. Again, he failed immediately. Despite being awake on 98% on 0.30 FiO2 on pressure regulated volume control (PRVC), when converted to pressure support, even 10/5, patient is only able to pull tidal volumes of just over 100. His rapid shallow breathing index (RSBI) is 328. He becomes in severe distress and becomes hypoxic. There does not appear to be a reversible cause of his respiratory failure. Patient had difficulty with high residual with two feeds. These have been held. Plan is to convert to comfort measures only. We are waiting for the and family and it will either be today or tomorrow, pending on family's ability to get to the bedside. PHYSICAL EXAMINATION: Temperature 97.7, pulse 85, respiratory rate 16, blood pressure 119/64, oxygen saturation 98% on 0.30 FiO2. GENERAL: Awake and is on sedation vacation. HEENT: Sclerae clear, nonicteric. Pupils equal and reactive to light. Mucous membranes moist without lesions. Tongue is midline. There is copious amounts of clear to blood-tinged secretions from the endotracheal tube. No significant mucous. No active hemorrhage. PULMONARY: Decreased breath sounds on the right, clear on the left. No rales, rhonchi or wheezes. There is dullness to percussion on the right along with increased tactile fremitus. ABDOMEN: Soft, nontender, nondistended. No hepatosplenomegaly. No masses or herniation. EXTREMITIES: No cyanosis, clubbing, but there is some edema in the upper extremities bilaterally. LABORATORY EVALUATION: Shows a pH of 7.42, pCO2 of 44, pAO2 of 98. Sodium 145, potassium 5.5, chloride 112, bicarbonate 33, BUN 22, creatinine 0.73. White blood cell count 16.1, hemoglobin 8.7, hematocrit 28.5 with a platelet count of 288. Chest x-ray shows continuing opacification on the right with endotracheal tube in good position. IMPRESSION: A 50-year-old male with respiratory failure, likely from tumor burden, unlikely to be able to be successfully weaned. He has failed multiple spontaneous breathing trials. I have no reversible etiology of his respiratory failure. Discussions with family are ongoing. PLAN: Convert to comfort measures today or tomorrow. Patient remains DO NOT RESUSCITATE (DNR). Extremely poor prognosis.
--- NOTE | 2021-02-13 10:16 | CCN ---
CRITICAL CARE PROGRESS NOTE DATE: 02/13/2021 CRITICAL CARE TIME: 42 minutes. This excludes all procedures. SUBJECTIVE: The patient remains intubated and now having hemoptysis. The communicated plan of care is that the family plans on everyone visiting today and withdrawal of care. He remains on mechanical ventilation for severe respiratory failure, unable to ventilate on his own, not passing spontaneous breathing trials. He is also now having hemoptysis this morning. Minimal amounts of fresh blood likely from tumor burden. OBJECTIVE: VITAL SIGNS: Temperature 98.1, pulse 90, respiratory rate is 16, blood pressure is 133/78, oxygen saturation 97% on 0.30 FiO2. GENERAL: Awakes with sedation withdrawal. HEENT: Sclerae clear, anicteric. Pupils equal and reactive to light. Mucous membranes are moist without lesions. NECK: Supple. No tracheal deviation or mass. CARDIAC: Regular S1, S2 without audible murmurs, rubs or gallops. No elevated JVP but there is systemic edema. PULMONARY: Decreased breath sounds on the right. Infusaport is in place. Fairly clear on the left. ABDOMEN: Soft, nontender, nondistended. No hepatosplenomegaly. No masses or herniation. EXTREMITIES: There is swelling of both upper limbs. Lower extremities without significant cyanosis or clubbing. No laboratory evaluation today for impending withdrawal of care. IMPRESSION: Severe respiratory failure. Unable to pass spontaneous breathing trials. Has high shallow breathing index, low tidal volumes. This is irreversible likely from tumor burden. PLAN: The plan is to withdraw care today. I expect the patient will have significant dyspnea with withdrawal of endotracheal tube. Therefore a Morphine drip may be started initially. I will assist the primary care team in converting the patient to comfort measures as deemed by the wishes of the family members.
--- NOTE | 2021-02-13 11:23 | IPNPDOC ---
Date Seen The patient was seen on 02/13/21. Progress Note SUBJECTIVE: Plan is for family to come and see patient, likely advance to comfort measures late AM, afternoon. Will meet with the family at that time. Labs and imaging stopped. Hemoptysis in ET tube is new this AM, VS stable on same vent settings from 02/12/21. OBJECTIVE: PHYSICAL EXAMINATION: VENT SETTINGS: PRVC mode, FiO2 30%, PEEP 5, RR 15, TV 400 with VS VS:133/78, HR 90, 98% on vent settings above, RR 17, afebrile CONSTITUTIONAL: Intubated, sedated EYES: PERRLA, EOM intact HENT, MOUTH: Normocephalic, atraumatic, moist mucous membranes, endotracheal tube secured in place with minimal blood in tubing NECK: SUPPLE, no JVD, no lymphadenopathy, no carotid bruit CV: sinus rhythm, S1S2 normal, no murmurs/rubs/gallops CHEST: left subclavian central line in place, multiple incisions covered in bandages RESPIRATORY: Rhonchi b/l in upper and lower lung carranza, no rales/wheezes GI: PEG tube , area around tube appears clean. Nontender to palpation abdomen, diffuse, BS positive in 4 quadrants, no rebound or guarding, no organomegaly : pardo catheter MUSCULOSKELETAL: Normal ROM. No cyanosis, clubbing, swelling, joint deformity, nonpitting upper and lower extremity edema INTEGUMENTARY: Intact, no rashes, no lesions, no erythema NEUROLOGIC: following some commands, no focal deficits LABORATORY DATA: Please see below MICRO: Pleural fluid aerobic/anaerobic GS and culture: NG Pleural fluid fungal studies: pending Sputum GS: QUALITY GOOD, MODERATE WBCS, MANY GRAM POSITIVE COCCI, FEW GRAM NEGATIVE RODS, MANY GRAM POSITIVE RODS Sputum Cx: yeast BCx NG to date IMAGING: CXR 02/11/21: Unchanged from prior CXR CXR 02/09/21: There is pleural thickening along the right lateral chest wall and a large opacity occupying the inferior half of the right lung. This is unchanged from the comparison studies. There is a small focal patchy density inferiorly in the left lung, unchanged. There is a left subclavian central venous catheter with its tip in the superior vena cava in satisfactory position, unchanged. There is a right IJ Pifjcu-G-Qzka catheter with the tip in the right atrium in satisfactory position, unchanged. Echocardiogram 02/08/21: EF 75% Sinus tachycardia without intraventricular conduction disturbance. M-mode and 2-dimensional echocardiography was performed with pulse and con tinuous wave Doppler. Normal left ventricular size and wall thickness with hyperkinetic wall motion. Normal left atrial size. Unable to define LV diastolic function in light of superimposed early and late diastolic filling patterns with his tachycardia. Right heart chambers were somewhat compressed by the pericardial fluid, but wallmotion appeared to be normal with at least moderately severe pulmonary hypertension. Prominently dilated IVC with absent respiratory collapse in keeping with an elevated central venous pressure. Normal aortic dimensions. Normal appearing aortic valve. Normal appearing mitral valvular apparatus with leaflet excursion and no posterior systolic buckling. No apparent intracardiac mass. Large pericardial effusion with the heart swinging within the fluid. As mentioned, there was some compression of the right heart chambers and obvious respiratory dependent variation in pulse Doppler signals in keeping with cardiac tamponade. The fluid measured 1.8 cm posteriorly, 0.9 cm laterally, and 2.0 cm anterior to the right ventricle. CTA chest: 1. Interval development of a large pericardial effusion since December but similar to January. 2. Development of a 15 cm mass in the subcarinal location extending to the right and left hilar region and inferiorly causing obstruction of the esophagus and impressing on the left ventricle and pulmonary veins 15 by 5.5 cm. 3. Probable abscess measuring 3 cm below the level of the obstructed esophagus and communicating with a 6 cm abscess or necrosis at the right lower lung with an air-fluid level. This is also seen in January. 4. Extensive malignant infiltration along the right parahilar region and right pleural surface. 5. No evidence of pulmonary embolus. CT abd/pelvis with contrast: 1. Very large mass lesion subcarinal location and right thorax contiguous with the right diaphragm and liver. 2. Obstructed esophagus with gastrostomy tube in the stomach. CXR: Stable pleural and parenchymal opacities on the right. 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 Millan) admitted under inpatient status for SOB and recent hypoxic respiratory failure 2/2 to HCAP, sepsis r/o worsened pulmonary abscess, abdominal pain r/o acute intrabdominal pathology with recent feeding tube placement. PLAN: Acute hypoxic respiratory failure likely multifactorial and 2/2 to Stage IV lung CA, HCAP, sepsis -Currently intubated and on ventilator, see above for VS and vent settings -No weaning trial today, has failed weaning trial everyday he has been in ICU -Currently on propofol, morphine, versed PRN -Plan is QUALITY CONTROLLER today, likely starting morphine gtt instead of PRN Acute hypoxic respiratory failure multifactorial 2/2 to Stage IV squamous cell carcinoma of the lung, HCAP, pulmonary abscess vs. necrotic lung mass, sepsis -No new labs this AM, VS stable on vent seting above -VS and Vent settings above -Imaging above -Sputum culture: yeast -Pericardial fluid anaerobic/aerobic GS/cultures- NG , fungal studies -On zosyn, IVFs, levalbuterol ATC and PRN, methylprednisolone 60 mg IV BID, zofran, pain control. Previously on Vancomycin but stopped. -CT surgery has seen , pulmonary following Pericardial tamponade -Echo above -POD 5 open tube pericardiostomy after attempt with percutaneous tube pericardiostomy, tube later removed -Dr. Duong, CT surgery has seen -S/s of pericardial tamponade improved Hyperkalemia likely 2/2 to KCL in fluids -No new labs, will not recheck as plan is QUALITY CONTROLLER later today Hypotension s/p pericardiostomy- resolved -Levophed stopped 02/10/21 -IVFs -Arterial line removed Hypercalcemia likely 2/2 to malignancy -On prednisone, fluids Anemia -No new labs today, some blood in ET tube today, new -S/p 1 unit PRBC this admission -No occult blood able to be collected despite bowel regimen, has not had much through bowels Dysphagia 2/2 esophageal compression by extrinsic mass, supposed to start radiation for extrinsic mass (Dx 01/19- hospitalization) -Was to start palliative RT to esophagus obstructing mass -CT abd/pelvis with contrast above, no CI to start tube feedings -Jevity 1.5 continuous tube feedings have been challenging as residuals have required stopping/starting several times- currently off -Currently on reglan Stage IV squamous cell carcinoma of the lung s/p radiation/chemo -Very poor prognosis -Follows with Dr. Armijo -Dr. Byers has seen for palliative radiation -All treatments on hold for now DM type II -Last BS 152, not getting nutrition consistently with stopping/resuming tube feedings -Tube feedings Jevity, currently on hold -levemir HS -Q6H ISS, FS Atrial fibrillation, paroxysmal -currently NSR -Lovenox px dosing HLD -Holding home statin Depression / Anxiety / Panic attacks -Holding home meds for now GERD -PPI IV DVT px -Lovenox Resolved issues: Acute hypokalemia DISPOSITION: Family meeting had on 02/12/21, please refer to addendum of ICU note on 02/12/21. Plan is for family to see him today, likely advance care to QUALITY CONTROLLER to day. pulmonary/CC following with medicine team. TOTAL AMOUNT OF CRITICAL CARE TIME SPENT CARING FOR PATIENT (nonprocedural): 30 MINS VS, I&O, 24H, Fishbone Vital Signs/I&O Vital Signs Date Time Temp Pulse Resp B/P (MAP) Pulse Ox O2 Delivery O2 Flow Rate FiO2 02/13/21 11:09 71 16 02/13/21 10:00 Ventilator 02/13/21 08:00 30 02/13/21 07:57 97 02/13/21 06:21 133/78 02/13/21 04:00 98.1 02/08/21 19:42 6.0 I&O- Last 24 Hours up to 6 AM 02/13/21 06:00 Intake Total 2513.1 ml Output Total 700 ml Balance 1813.1 ml Laboratory Data 24H LABS Laboratory Tests 2 02/12/21 11:22: Bedside Glucose (Misc Panel) 180H 02/12/21 17:21: Bedside Glucose (Misc Panel) 174H 02/12/21 23:10: Bedside Glucose (Misc Panel) 147H 02/13/21 05:56: Bedside Glucose (Misc Panel) 152H Microbiology Microbiology 02/08/21 Acid Fast Stain, Received Pending 02/08/21 Mycobacterial Culture, Received Pending 02/08/21 Fungal Smear, Received Pending 02/08/21 Fungal Culture, Received Pending 02/08/21 Gram Stain - Final, Complete 02/08/21 Body Fluid Culture - Final, Complete 02/08/21 Anaerobic Culture - Final, Complete 02/07/21 Gram Stain - Final, Complete 02/07/21 Sputum Culture - Final, Complete Yeast Like Organism 02/07/21 Blood Culture - Final, Complete NO GROWTH AFTER 5 DAYS 02/07/21 Blood Culture - Final, Complete NO GROWTH AFTER 5 DAYS 02/07/21 Respiratory Virus Panel (PCR) (RAMIN) - Final, Complete Current Medications Current Medications Medications (Trade) Dose Ordered Sig/[place] Route PRN Reason Start Time Stop Time Status Last Admin Dose Admin Acetaminophen/ Hydrocodone Bitart ([place], Anexsia 5/325) 1 tab Q3H PRN PO MILD PAIN (PS 1-4) 02/08/21 21:25 02/10/21 07:46 DC Apixaban (Eliquis) 2.5 mg BID PO 02/07/21 21:00 02/07/21 19:11 DC Bisacodyl (Dulcolax Suppository) 10 mg Q4HP PRN SD CONSTIPATION 02/08/21 21:25 02/12/21 07:54 Cefepime HCl 1 gm/ Dextrose 50 ml @ 100 mls/hr Q12H IV 02/07/21 17:55 02/07/21 18:51 DC Chlorhexidine Gluconate (Peridex Oral Rinse) 15 ml BID MT 02/09/21 09:00 02/13/21 08:59 Dextrose (Dextrose 50%) 25 ml ASDIRECTED PRN IV SEE LABEL COMMENTS 02/07/21 18:00 Dextrose/Sodium Chloride 1,000 ml @ 75 mls/hr [id number] IV 02/12/21 06:20 02/12/21 22:49 Docusate Sodium (Colace) 100 mg BID PO 02/09/21 09:00 Enoxaparin Sodium (Lovenox) 40 mg DAILY SC 02/08/21 09:00 02/12/21 07:54 Fentanyl Citrate (Sublimaze) 25 mcg Q5MP PRN IV PAIN LEVEL 5-10 02/08/21 22:10 02/08/21 23:09 DC Fentanyl Citrate (Sublimaze) 25 mcg Q5MP PRN IV PAIN LEVEL 5-10 02/08/21 22:20 02/08/21 23:30 Cancel Glucagon (Glucagon) 1 mg ASDIRECTED PRN SC SEE LABEL COMMENTS 02/07/21 18:00 Glucose (Glucose) 16 GM ASDIRECTED PRN PO SEE LABEL COMMENTS 02/07/21 18:00 Home Med (Med Rec Complete!) ASDIRECTED XX 02/07/21 18:05 02/07/21 18:06 DC Insulin Detemir (Levemir Insulin) 10 units QHS SC 02/10/21 21:00 02/12/21 20:05 Insulin Human Lispro (HumaLOG INSULIN) SEE PROTOCOL TABLE AC SD 02/08/21 17:30 02/10/21 22:51 DC 02/10/21 18:07 Insulin Human Lispro (HumaLOG INSULIN) SEE PROTOCOL TABLE Q6H SD 02/11/21 00:00 02/13/21 06:04 Insulin Human Lispro (HumaLOG INSULIN) SEE PROTOCOL TABLE Q6H SD 02/07/21 18:00 02/08/21 13:14 DC 02/08/21 12:00 Insulin Human Lispro (HumaLOG INSULIN) SEE PROTOCOL TABLE QHS SD 02/08/21 21:00 02/10/21 22:51 DC Ketorolac Tromethamine (ToRADol) 30 mg Q6H IV 02/08/21 23:00 02/12/21 08:17 DC 02/12/21 05:22 Lactated Ringer's 1,000 ml @ 80 mls/hr [id number] IV 02/08/21 22:10 02/08/21 23:09 DC Lactated Ringer's 1,000 ml @ 80 mls/hr [id number] IV 02/08/21 22:20 02/08/21 23:30 Cancel Levalbuterol HCl (Xopenex Neb) 1.25 mg Q2HP PRN NEB SOB/WHEEZING 02/07/21 18:50 02/08/21 17:32 Levalbuterol HCl (Xopenex Neb) 1.25 mg QID NEB 02/07/21 21:00 02/13/21 11:09 Lorazepam (Ativan) 1 mg STAT STAT IV 02/08/21 15:17 02/08/21 15:19 DC 02/08/21 15:40 Magnesium Hydroxide (Milk Of Magnesia) 30 ml DAILY PO 02/09/21 09:00 02/12/21 07:55 Methylprednisolone (SOLUmedrol) 60 mg Q12H IV 02/10/21 09:00 02/13/21 09:16 Metoclopramide HCl (REGLAN INJection) 10 mg Q8H IV 02/10/21 13:00 02/13/21 05:59 Metoprolol Succinate (TopROL XL) 50 mg BID PO 02/07/21 21:00 02/07/21 19:18 DC Midazolam HCl (Versed) 2 mg Q15MP PRN IV ANXIETY 02/08/21 21:40 02/13/21 08:59 Morphine Sulfate (Morphine Sulfate Inj) 1 mg Q6H PRN IV MODERATE PAIN (PS 5-7) 02/07/21 19:05 02/11/21 16:18 DC 02/11/21 12:09 Morphine Sulfate (Morphine Sulfate Inj) 2 mg Q4H PRN IV PAIN 02/12/21 02:00 02/13/21 04:55 Morphine Sulfate (Morphine Sulfate Inj) 2 mg Q6H PRN IV MODERATE PAIN (PS 5-7) 02/11/21 16:00 02/12/21 01:59 DC 02/12/21 00:02 Norepinephrine Bitartrate 8 mg/ Dextrose 500 ml @ 7.5 mls/hr Q24H IV 02/08/21 21:50 02/12/21 08:17 DC 02/09/21 22:53 Ondansetron HCl (ZOFRAN INJection) 4 mg Q4HP PRN IV NAUSEA OR VOMITING 02/07/21 19:00 02/07/21 19:23 Ondansetron HCl (ZOFRAN INJection) 4 mg Q4HP PRN IV NAUSEA OR VOMITING 02/08/21 22:10 02/08/21 23:09 DC Ondansetron HCl (ZOFRAN INJection) 4 mg Q4HP PRN IV NAUSEA OR VOMITING 02/08/21 22:20 02/08/21 23:30 Cancel Oxycodone/ Acetaminophen (Percocet 5mg/ 325mg Tablet) 1 tab Q4H PRN PO MODERATE PAIN (PS 5-7) 02/08/21 21:25 02/10/21 07:46 DC Oxycodone/ Acetaminophen (Percocet 5mg/ 325mg Tablet) 2 tab Q4H PRN PO SEVERE PAIN (PS 8-10) 02/08/21 21:25 02/10/21 07:46 DC Pantoprazole Sodium (Protonix) 40 mg Q24H IV 02/07/21 20:00 02/12/21 20:04 Pantoprazole Sodium (Protonix) 40 mg QHS PO 02/07/21 21:00 02/07/21 19:18 DC Piperacillin Sod/ Tazobactam Sod 3.375 gm/Dextrose 50 ml @ 50 mls/hr Q6H IV 02/08/21 01:00 02/13/21 06:04 Potassium Chloride 20 meq/ IV Miscellaneous Supplies 100 ml @ 100 mls/hr Q1H IV 02/10/21 08:00 02/10/21 08:45 DC Potassium Chloride 20 meq/ IV Miscellaneous Supplies 100 ml @ 100 mls/hr Q1H IV 02/10/21 08:00 02/10/21 09:59 DC 02/10/21 11:27 Potassium Chloride/Dextrose/ Sod Cl 1,000 ml @ 75 mls/hr [id number] IV 02/08/21 21:25 02/12/21 06:20 DC 02/11/21 16:55 Propofol (Diprivan) DRIP IV 02/08/21 22:25 02/08/21 23:25 DC Propofol 1000 mg/ IV Miscellaneous Supplies 100 ml @ 4.968 mls/ hr Q12H IV 02/08/21 21:40 02/13/21 09:16 Sertraline HCl (Zoloft) 100 mg DAILY PO 02/08/21 09:00 02/07/21 19:18 DC Simvastatin (Zocor) 10 mg QHS PO 02/07/21 21:00 02/07/21 19:18 DC Sodium Chloride 1,000 ml @ 100 mls/hr Q10H IV 02/07/21 18:05 02/08/21 21:27 DC 02/08/21 14:50 Vancomycin HCl 1000 mg/IV Miscellaneous Supplies 1 each/ Sodium Chloride 270 ml @ 270 mls/hr Q8H IV 02/08/21 04:00 02/08/21 13:47 DC 02/08/21 03:18 Vancomycin HCl 1000 mg/IV Miscellaneous Supplies 1 each/ Sodium Chloride 270 ml @ 270 mls/hr Q8H IV 02/08/21 14:00 02/10/21 12:01 DC 02/10/21 05:13 Vitamin D (Vitamin D) 2,000 units DAILY PO 02/08/21 09:00 02/07/21 19:18 DC Allergies Coded Allergies: No Known Allergies (Unverified , 08/14/19) Tarah Burnette MD Feb 13, 2021 11:23
[2021-02-13] MEDS ORDERED: SCOPOLAMINE 1MG TRANSDERMAL PATCH TOP PRN (12:50)
[2021-02-13] MEDS ORDERED: LORazepam 2 MG/ML VIAL IV PRN ×2 (12:50→16:00)
[2021-02-13] MEDS ORDERED: MORPHINE SULF IN 0.9% NACL 100 MG in IV 1 EA IV SCH ×2 (12:50)
[2021-02-13] MEDS ORDERED: PROPOFOL 1,000 MG/100 ML VIAL As Ordered ONE (13:40)
[2021-02-13] MEDS ORDERED: MORPHINE 2 MG/ML 1ML VIAL (J2270) IV ONE ×2 (13:55→16:00)
[2021-02-13] MEDS ORDERED: LORazepam 2 MG/ML VIAL IV ONE (15:40)
[2021-02-14] MEDS: MORPHINE 2 MG/ML 1ML VIAL (J2270) IV PRN (02:43)
--- NOTE | 2021-02-14 13:06 | IPNPDOC ---
Text Note Date of Service The patient was seen on 02/14/21. NOTE SUBJECTIVE: -Was made EXECUTIVE RECRUITER yesterday. -This morning with some agonal breathing, we are making contact for to visit soon -Has hospice consult placed -Transfer order to regular floor while EXECUTIVE RECRUITER from ICU placed OBJECTIVE: PHYSICAL EXAMINATION: VS: see below GENERAL: ill appearing, thin EYES: PERRLA, EOM intact HENT, MOUTH: Normocephalic, atraumatic, dry mucous membranes, nasal canula in place NECK: SUPPLE, no JVD CV: sinus rhythm, S1S2 normal, no murmurs/rubs/gallops RESP: episodes of agonal breathing, bilateral rhonchi, no wheezing GI: Has PEG tube in place, soft abdomen, no grimacing with palpation of abdomen, normoactive bowel sounds in 4 quadrants, no involuntary guarding : has pardo catheter in place EXT: Bilateral LE edema, WWP LABORATORY DATA: None this morning. Consistent with EXECUTIVE RECRUITER status MICRO: Pleural fluid aerobic/anaerobic GS and culture: NG Pleural fluid fungal studies: pending Sputum GS: QUALITY GOOD, MODERATE WBCS, MANY GRAM POSITIVE COCCI, FEW GRAM NEGATIVE RODS, MANY GRAM POSITIVE RODS Sputum Cx: yeast BCx NG to date IMAGING: CXR 02/11/21: Unchanged from prior CXR CXR 02/09/21: There is pleural thickening along the right lateral chest wall and a large opacity occupying the inferior half of the right lung. This is unchanged from the comparison studies. There is a small focal patchy density inferiorly in the left lung, unchanged. There is a left subclavian central venous catheter with its tip in the superior vena cava in satisfactory position, unchanged. There is a right IJ Batbjl-L-Hxtd catheter with the tip in the right atrium in satisfactory position, unchanged. Echocardiogram 02/08/21: EF 75% Sinus tachycardia without intraventricular conduction disturbance. M-mode and 2-dimensional echocardiography was performed with pulse and continuous wave Doppler. Normal left ventricular size and wall thickness with hyperkinetic wall motion. Normal left atrial size. Unable to define LV diastolic function in light of superimposed early and late diastolic filling patterns with his tachycardia. Right heart chambers were somewhat compressed by the pericardial fluid, but wallmotion appeared to be normal with at least moderately severe pulmonary hypertension. Prominently dilated IVC with absent respiratory collapse in keeping with an elevated central venous pressure. Normal aortic dimensions. Normal appearing aortic valve. Normal appearing mitral valvular apparatus with leaflet excursion and no posterior systolic buckling. No apparent intracardiac mass. Large pericardial effusion with the heart swinging within the fluid. As mentioned, there was some compression of the right heart chambers and obvious respiratory dependent variation in pulse Doppler signals in keeping with cardiac tamponade. The fluid measured 1.8 cm posteriorly, 0.9 cm laterally, and 2.0 cm anterior to the right ventricle. CTA chest: 1. Interval development of a large pericardial effusion since December but similar to January. 2. Development of a 15 cm mass in the subcarinal location extending to the right and left hilar region and inferiorly causing obstruction of the esophagus and impressing on the left ventricle and pulmonary veins 15 by 5.5 cm. 3. Probable abscess measuring 3 cm below the level of the obstructed esophagus and communicating with a 6 cm abscess or necrosis at the right lower lung with an air-fluid level. This is also seen in January. 4. Extensive malignant infiltration along the right parahilar region and right pleural surface. 5. No evidence of pulmonary embolus. CT abd/pelvis with contrast: 1. Very large mass lesion subcarinal location and right thorax contiguous with the right diaphragm and liver. 2. Obstructed esophagus with gastrostomy tube in the stomach. CXR: Stable pleural and parenchymal opacities on the right. Mild patchy infiltrate left lung base appears new ASSESSMENT: 50-year-old M with Stage IV squamous cell carcinoma of the lung s/p radiation/chemotherapy, atrial fibrillation on Eliquis, diabetes mellitus type 2, recent history of right lung abscess, chronic right-sided malignant pleural effusion, hyperlipidemia, developmental delay, dysphagia 2/2 esophageal compression by extrinsic mass s/p FT placement on 02/02/21 by IR (Dr. Millan) c/b SOB and hypoxemic respiratory failure 2/2 to HCAP and sepsis with c/f recurrent/worsening pulmonary abscess who is now EXECUTIVE RECRUITER. PLAN: Acute hypoxic respiratory failure likely multifactorial and 2/2 to Stage IV lung CA, HCAP, sepsis -was extubated 02/13, now EXECUTIVE RECRUITER on NC -On morphine gtt -Imaging above -Sputum culture: only showed some yeast -Pericardial fluid anaerobic/aerobic GS/cultures- NG , fungal studies -s/p vanc/zosyn, IVFs, levalbuterol ATC and PRN, methylprednisolone. Now all dc'd as he was transitioned to EXECUTIVE RECRUITER Pericardial tamponade -Echo above -POD 6 open tube pericardiostomy after attempt with percutaneous tube pericardiostomy, tube later removed -Dr. Duong, thoracic surgery was consulted Hyperkalemia -No new labs, now EXECUTIVE RECRUITER Hypotension s/p pericardiostomy- resolved -Levophed stopped 02/10/21 -IVFs -Arterial line removed Hypercalcemia likely 2/2 to malignancy -s/p prednisone, fluids, now EXECUTIVE RECRUITER Anemia -No new labs -S/p 1 unit PRBC this admission Dysphagia 2/2 esophageal compression by extrinsic mass, supposed to start radiation for extrinsic mass (Dx 01/19- hospitalization) -Was to start palliative RT to esophagus obstructing mass but now transitioned to EXECUTIVE RECRUITER status -CT abd/pelvis with contrast above, Jevity 1.5 continuous tube feedings have been challenging due to high residuals, currently off -Continue reglan Stage IV squamous cell carcinoma of the lung s/p radiation/chemo -Very poor prognosis -Follows with Dr. Armijo -Dr. Byers has seen for palliative radiation -All treatments discontinued at this time, now EXECUTIVE RECRUITER DM type II -Tube feedings Jevity, currently on hold -stop levemir HS and SSI Atrial fibrillation, paroxysmal -currently NSR HLD -Holding home statin Depression / Anxiety / Panic attacks -Holding home meds for now GERD -holding PPI DVT px: now EXECUTIVE RECRUITER DISPOSITION: Now EXECUTIVE RECRUITER, transfer to floor with pending hospice consult. VS,Fishbone, I+O VS, Fishbone, I+O Vital Signs Date Time Temp Pulse Resp B/P (MAP) Pulse Ox O2 Delivery O2 Flow Rate FiO2 02/14/21 02:43 120 15 93 Nasal Cannula 3.0 02/13/21 13:00 120/76 (91) 30 02/13/21 12:00 97.2 I&O- Last 24 Hours up to 6 AM 02/14/21 06:00 Intake Total 883 ml Output Total 400 ml Balance 483 ml BEATRIZ FERRARO MD Feb 14, 2021 07:59
--- NOTE | 2021-02-14 13:45 | DS.PDOC ---
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 Millan) who presented to [facility] emergency room with chief complaint of increasing shortness of breath over 24 hours. The patient was an overall very poor historian, which his says is because of his developmental delay. His was at the bedside and was able to give most of the information. On the day of presentation he was noted to have increased work of breathing, struggled to catch his breath and had increased productive cough. He had a recent feeding tube placed on 02/02/2021 and he had also been complaining of increased diffuse abdominal pain. The patient himself denied chest pain, nausea, vomiting, diarrhea, fevers, chills, or leakage from around feeding tube. According to his , continuous feedings had not yet been sta rted and the patient at times could tolerate a liquids. Of note, he had several recent hospital admissions: First being on for right-sided pleural effusion 2/2 to malignancy (possibly infection) requiring thoracentesis and catheter placement/later removal. Second recent admission being on for dysphagia 2/2 to esophageal compression by an extrinsic mass. After the last admission, the patient was sent home with directions to follow up with IR for PEG tube placement. Feeding tube was later placed on 02/02/2021. He has been unable to tolerate a liquid diet at home and has had steady weight loss over the past several months. He was supposed to start radiation for this extrinsic mass recently but this was postponed due to ongoing illness. He was also treated for right-sided pulmonary abscess secondary to pneumococcus recently. He was treated with IV ceftriaxone and later oral cefdinir, which his reported that he could not tolerate. Dr. Le (infectious disease) was following him during this time and her office was aware. HOSPITAL COURSE: In the ER, VS showed T 96.6 F, HR 125 sinus tach, RR 20-30, BP 129/63, 98% on 3 L NC. His said he was recently started on home O2 over the past 4 days, prescribed by his radiation oncologist. CXR showed stable pleural and parenchymal opacities on the right. Mild patchy infiltrate left lung base appears new. CTA of the chest was ordered to r/o PE and/or persistent pulmonary abscess he was previously getting treated but could not complete oral abx for. He had abdominal pain on palpation, diffusely. LA elevated at 2.4. CT abd/pelvis with contrast ordered to r/o abscess vs. other acute abdominal pathology. ABG showed pH 7.45, WBC 15.6, H/H stable, BS 153, Resp panel neg. BNP 244. Patient was admitted for SOB and recent hypoxic respiratory failure 2/2 to HCAP, sepsis r/o worsened pulmonary abscess, abdominal pain r/o acute intrabdominal pathology with recent feeding tube placement. CTA was ultimately negative for a PE and showed persistent abscess, large subcarinal mass extending to the right and left hilar region and inferiorly causing obstruction of the esophagus and impressing on the left ventricle, a large pericardial effusion and subsequent TTE confirmed a pericardial effusion with the heart swinging within the fluid with some compression of the right heart chambers and obvious respiratory dependent variation in pulse Doppler signals in keeping with cardiac tamponade. Thoracic surgery was consulted and he had percutaneous tube pericardiostomy and was also intubated for HRF. 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 On 02/13 he was extubated and on 02/14 at 1.18 PM he with his family at bedside. DISCHARGE MEDICATIONS: Please see below. ALLERGIES: Please see below. PHYSICAL EXAMINATION ON DISCHARGE: LABORATORY DATA: Please see below MICRO: Pleural fluid aerobic/anaerobic GS and culture: NG Pleural fluid fungal studies: pending Sputum GS: QUALITY GOOD, MODERATE WBCS, MANY GRAM POSITIVE COCCI, FEW GRAM NEGATIVE RODS, MANY GRAM POSITIVE RODS Sputum Cx: yeast BCx NGTD IMAGING: CXR 02/11/21: Unchanged from prior CXR CXR 02/09/21: There is pleural thickening along the right lateral chest wall and a large opacity occupying the inferior half of the right lung. This is unchanged from the comparison studies. There is a small focal patchy density inferiorly in the left lung, unchanged. There is a left subclavian central venous catheter with its tip in the superior vena cava in satisfactory position, unchanged. There is a right IJ [id number] catheter with the tip in the right atrium in satisfactory position, unchanged. Echocardiogram 02/08/21: EF 75% Sinus tachycardia without intraventricular conduction disturbance. M-mode and 2-dimensional echocardiography was performed with pulse and continuous wave Doppler. Normal left ventricular size and wall thickness with hyperkinetic wall motion. Normal left atrial size. Unable to define LV diastolic function in light of superimposed early and late diastolic filling patterns with his tachycardia. Right heart chambers were somewhat compressed by the pericardial fluid, but wallmotion appeared to be normal with at least moderately severe pulmonary hypertension. Prominently dilated IVC with absent respiratory collapse in keeping with an elevated central venous pressure. Normal aortic dimensions. Normal appearing aortic valve. Normal appearing mitral valvular apparatus with leaflet excursion and no posterior systolic buckling. No apparent intracardiac mass. Large pericardial effusion with the heart swinging within the fluid. As mentioned, there was some compression of the right heart chambers and obvious respiratory dependent variation in pulse Doppler signals in keeping with cardiac tamponade. The fluid measured 1.8 cm posteriorly, 0.9 cm laterally, and 2.0 cm anterior to the right ventricle. CTA chest: 1. Interval development of a large pericardial effusion since December but similar to January. 2. Development of a 15 cm mass in the subcarinal location extending to the right and left hilar region and inferiorly causing obstruction of the esophagus and impressing on the left ventricle and pulmonary veins 15 by 5.5 cm. 3. Probable abscess measuring 3 cm below the level of the obstructed esophagus and communicating with a 6 cm abscess or necrosis at the right lower lung with an air-fluid level. This is also seen in January. 4. Extensive malignant infiltration along the right parahilar region and right pleural surface. 5. No evidence of pulmonary embolus. CT abd/pelvis with contrast: 1. Very large mass lesion subcarinal location and right thorax contiguous with the right diaphragm and liver. 2. Obstructed esophagus with gastrostomy tube in the stomach. CXR: Stable pleural and parenchymal opacities on the right. Mild patchy infiltrate left lung base appears new PROGNOSIS: ACTIVITY: DIET: DISCHARGE PLAN: DISPOSITION: . Morgue DISCHARGE CONDITION: TIME SPENT ON DISCHARGE: 45 minutes. Vital Signs/I&Os Vital Signs Date Time Temp Pulse Resp B/P (MAP) Pulse Ox O2 Delivery O2 Flow Rate FiO2 02/14/21 08:00 5.0 02/14/21 02:43 120 15 93 Nasal Cannula 02/13/21 13:00 120/76 (91) 30 02/13/21 12:00 97.2 I&O- Last 24 Hours up to 6 AM 02/14/21 06:00 Intake Total 883 ml Output Total 400 ml Balance 483 ml Microbiology Microbiology 02/08/21 Acid Fast Stain, Received Pending 02/08/21 Mycobacterial Culture, Received Pending 02/08/21 Fungal Smear, Received Pending 02/08/21 Fungal Culture, Received Pending 02/08/21 Gram Stain - Final, Complete 02/08/21 Body Fluid Culture - Final, Complete 02/08/21 Anaerobic Culture - Final, Complete 02/07/21 Gram Stain - Final, Complete 02/07/21 Sputum Culture - Final, Complete Yeast Like Organism 02/07/21 Blood Culture - Final, Complete NO GROWTH AFTER 5 DAYS 02/07/21 Blood Culture - Final, Complete NO GROWTH AFTER 5 DAYS 02/07/21 Respiratory Virus Panel (PCR) (RAMIN) - Final, Complete Discharge Medications Scheduled Albuterol Sulf (Albuterol Sulfate) 2.5 Mg/3 Ml Vial.neb, 2.5 MG INH TID, (Reported) Apixaban (Eliquis) 2.5 Mg Tablet, 2.5 MG PO BID, (Reported) Cholecalciferol (Vitamin D3) (Vitamin D3) 1,000 Unit Tablet, 2,000 UNITS PO DAILY, (Reported) Docusate Sodium (Stool Softener) 100 Mg Capsule, 100 MG PEG BID Glipizide (Glipizide) 5 Mg Tablet, 5 MG PO DAILY, (Reported) Metformin HCl (Metformin HCl) 1,000 Mg Tablet, 1,000 MG PO BID, (Reported) Metoprolol Succinate (Metoprolol Succinate) 50 Mg Tab.er.24h, 50 MG PO BID, (Reported) Pantoprazole Sodium (Pantoprazole Sodium) 40 Mg Tablet.dr, 40 MG PO QHS, (R eported) Sertraline Hcl (Zoloft) 100 Mg Tablet, 100 MG PO DAILY, (Reported) Simvastatin (Simvastatin) 10 Mg Tablet, 10 MG PO QHS, (Reported) Umeclidinium [place] (Incruse Ellipta) 62.5 Mcg Blst.w.dev, 1 PUFF INH DAILY, (Reported) Scheduled PRN Acetaminophen (Acetaminophen) 325 Mg Tablet, 650 MG PO Q4H PRN for PAIN / FEVER, (Reported) Albuterol Sulfate (Albuterol Sulfate Hfa) 8.5 Gm Hfa.aer.ad, 2 PUFFS INH Q4H PRN for SOB/COUGH, (Reported) Guaifenesin (Mucinex) 600 Mg Tab.er.12h, 600 MG PEG BID PRN for COUGH, (Reported) Mag Hydrox/Aluminum Hyd/Simeth (Mylanta Maximum Strength Liq) 355 Ml Oral.susp, 15 ML PO QID PRN for INDIGESTION, (Reported) Melatonin (Melatonin) 10 Mg Capsule, 10 MG PO QHS PRN for SLEEP, (Reported) Oxycodone HCl (Oxycodone HCl) 5 Mg/5 Ml Solution, 5 ML PEG Q4HP PRN for PAIN Allergies Coded Allergies: No Known Allergies (Unverified , 08/14/19) BEATRIZ FERRARO MD Feb 14, 2021 13:45
== END 2021-02-14 13:18 | disposition expired | DRG 853 ==
LOC: M ED 14:33 → M ED INP 17:55 → M PCU 22:30 → M ICU 02-08 18:11 → M MSPAV 02-14 11:15
PROVIDERS: ADMIT Internal Medicine; ATTEND Internal Medicine
PROC: 5A1945Z Respiratory Ventilation, 24-96 Consecutive Hours (ICD-10-PCS; 2021-02-08)
PROC: 02HV33Z Insertion of Infusion Device into Superior Vena Cava, Percutaneous Approach (ICD-10-PCS; 2021-02-08)
PROC: 30233N1 Transfusion of Nonautologous Red Blood Cells into Peripheral Vein, Percutaneous Approach (ICD-10-PCS; 2021-02-08)
PROC: 0W9D00Z Drainage of Pericardial Cavity with Drainage Device, Open Approach (ICD-10-PCS; principal; 2021-02-08 18:49)
DX: A41.9 Sepsis, unspecified organism (principal); J96.01 Acute respiratory failure with hypoxia; J18.9 Pneumonia, unspecified organism; J85.0 Gangrene and necrosis of lung; J90 Pleural effusion, not elsewhere classified; C34.31 Malignant neoplasm of lower lobe, right bronchus or lung; C77.1 Secondary and unspecified malignant neoplasm of intrathoracic lymph nodes; I31.3 Pericardial effusion (noninflammatory); I31.4 Cardiac tamponade; E46 Unspecified protein-calorie malnutrition; R04.2 Hemoptysis; Z51.5 Encounter for palliative care; Z66 Do not resuscitate; I48.91 Unspecified atrial fibrillation; E78.5 Hyperlipidemia, unspecified; K21.9 Gastro-esophageal reflux disease without esophagitis; R13.10 Dysphagia, unspecified; R62.50 Unspecified lack of expected normal physiological development in childhood; F41.0 Panic disorder [episodic paroxysmal anxiety]; E83.52 Hypercalcemia; E11.9 Type 2 diabetes mellitus without complications; E87.5 Hyperkalemia; K22.2 Esophageal obstruction; D64.9 Anemia, unspecified; Z79.01 Long term (current) use of anticoagulants; Z79.84 Long term (current) use of oral hypoglycemic drugs; Z79.899 Other long term (current) drug therapy; Z87.891 Personal history of nicotine dependence; Z93.1 Gastrostomy status; Z92.21 Personal history of antineoplastic chemotherapy; Z92.3 Personal history of irradiation; Z20.822 Contact with and (suspected) exposure to COVID-19; Z80.0 Family history of malignant neoplasm of digestive organs; Z80.41 Family history of malignant neoplasm of ovary